=== PATIENT | male | born 1945 | race Caucasian/White ===

== ENCOUNTER → 2018-04-26 16:48 | Outpatient (CLI) | payer MEDICARE, OTHER, SELFPAY ==
--- NOTE | 2018-04-26 17:12 | RAD_ITS ---
STUDY: X-RAY - LUMBAR SPINE REASON FOR EXAM: Male, 73 years old. Lower back pain. TECHNIQUE: 3 view(s) of the lumbar spine were obtained. COMPARISON: None FINDINGS: Normal lumbar lordosis. There is no substantial scoliosis. There is a normal alignment of the vertebrae. Normal vertebral bodies. No acute fractures. No lytic or blastic lesions. 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 Moderate disc space height narrowing with degenerative vacuum phenomenon and mild sclerosis of the vertebral endplates at L2-L3, L3-L4 and L4-L5 disc space levels. Degenerative vacuum phenomenon and mild disc space height narrowing at the L5-S1 disc level. The soft tissue structures are unremarkable. RAD/Lumbar Spine 2 or 3 Views IMPRESSION: 1. 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 2. Pronounced L3-L4 disc space height narrowing with degenerative vacuum phenomenon and Modic type III degenerative vertebral marrow sclerosis underneath the vertebral endplates. 3. Moderate L2-L3 disc space height narrowing with degenerative vacuum phenomenon and minimal Modic type III degenerative vertebral marrow sclerosis underneath the vertebral endplates. 4. Pronounced L4-L5 disc space height narrowing with degenerative vacuum phenomenon and moderate L5-S1 disc space height narrowing with degenerative vacuum phenomenon. Electronically Signed: Ian Simons MD at 16:25 EDT , Service support ,
== END ==
PROVIDERS: Visit Provider Anesthesiology Pain Medicine
DX: M54.9 Dorsalgia, unspecified (principal)
CPT/HCPCS: 72100

== ENCOUNTER → 2018-05-11 09:45 | Outpatient (CLI) | payer MEDICARE, OTHER, SELFPAY ==
--- NOTE | 2018-05-11 10:45 | MRI_ITS ---
STUDY: MRI LUMBAR SPINE WITHOUT CONTRAST REASON FOR EXAM: Male, 73 years old. No back pain for 20 years. The patient had previous surgery 35 years ago. TECHNIQUE: Standardized fat and water weighted pulse sequences were obtained in the sagittal and axial planes. COMPARISON: Radiographs of the lumbar spine dated April 26, 2018. FINDINGS: T12-L1: Normal endplates. Normal disc height, signal and morphology. Normal bilateral facet joints. Normal central canal and bilateral lateral recesses. Normal bilateral intervertebral neural foramina. Normal lumbar lordosis. There is no substantial scoliosis. Normal conus medullaris that terminates at the T12-L1 level. L1-2: There is mild annular disk bulge and osteophyte complex. There is moderate degenerative arthropathy of the facet joints. Right-sided neuroforamen is mildly narrowed without MR evidence for nerve impingement. There is severe left-sided neural foraminal narrowing with potential impingement on the left L1 nerve root at the neural foramen. There is no significant central canal stenosis. L2-3: There is narrowing of the disc with vacuum disc phenomenon. There is a broad central disc protrusion. There is moderately severe degenerative arthropathy of the facet joints. There is moderate acquired canal stenosis. Neural foramina are narrowed, greater on the left than the right with potential impingement of the left L2 nerve root at the neural foramen. L3-4: There is narrowing of the disc. There is mild anterolisthesis at this level with uncovering of the disc. There is a broad central disc protrusion with annular disc bulge and osteophyte complex. There is severe degenerative arthropathy of the facet joints. There is severe acquired canal stenosis with probable impingement of the cauda equina. Neural foramina are moderately narrowed without definite nerve impingement at the neural foramina. L4-5: There is mild annular disk bulge and osteophyte complex. There is mild degenerative arthropathy of the facet joints. Bilateral neuroforamina are narrowed without MR evidence for nerve impingement. There is no significant central canal stenosis. L5-S1: There is narrowing of this disc with vacuum disc phenomenon. There is moderate annular disc bulge and osteophyte complex. There is moderate degenerative arthropathy of the facet joints. There is mild central acquired canal stenosis. Neuroforamina are moderately narrowed with questionable impingement of the left L5 nerve root at the lateral foramen. There may be Tarlov cysts arising from the L5 nerve roots at this level. Normal visualized sacral ala. There is mild paraspinal muscular atrophy. There appear to be multiple bilateral renal cysts. MRI/Spine Lumbar (Routine) IMPRESSION: Moderately severe multilevel degenerative disc disease and degenerative arthropathy of the lumbar spine with acquired canal stenosis, neural foraminal narrowing and potential nerve root impingement, as described. Electronically Signed: Elsy Angel MD at 12:01 EDT , Service support ,
== END ==
PROVIDERS: Visit Provider Anesthesiology Pain Medicine
DX: M54.9 Dorsalgia, unspecified (principal); M79.606 Pain in leg, unspecified
CPT/HCPCS: 72148

== ENCOUNTER → 2018-06-07 13:12 | Outpatient (CLI) | payer MEDICARE, OTHER, SELFPAY ==
[2018-06-07 14:03] LABS: Amphetamine Urine VISTA NEGATIVE (<1000 ng/mL); Barbiturate Urine VISTA NEGATIVE (< 200 ng/mL); Benzodiazepine Urine VISTA NEGATIVE (< 200 ng/mL); Cocaine Urine VISTA NEGATIVE (< 300 ng/mL); Ecstacy Urine VISTA NEGATIVE (< 500 ng/mL); Methadone Urine VISTA NEGATIVE (< 300 ng/mL); PCP Urine VISTA NEGATIVE (< 25 ng/mL); THC Urine VISTA NEGATIVE (< 50 ng/mL); Vista UDS pH Range 5
== END ==
PROVIDERS: Visit Provider Anesthesiology Pain Medicine
DX: F11.20 Opioid dependence, uncomplicated (principal)
CPT/HCPCS: 80307

== ENCOUNTER → 2018-07-10 12:59 | Outpatient (CLI) | payer MEDICARE, OTHER, SELFPAY ==
[2018-07-10 13:17] LABS: Absolute Neutrophil Count 6.6 X10^3/uL (2.0-7.7); Basophil# 0.02 X10^3/uL; Basophil% 0.2 % (0-1); Eosinophil# 0.18 X10^3/uL; Eosinophils% 2.2 % (0-5); Lymphocyte % 10.9 % (19-41); Mean Corp Hgb Conc 33.3 g/gl (32-36); Mean Platelet Vol. 9.6 fl (6.2-12.0); Monocyte# 0.61 X10^3/uL; Monocyte% 7.4 % (0-10); Neutrophil # 6.56 X10^3/uL (2.7-7.7); Neutrophil % 79.2 % (47-70); Platelet Count 283 K/mm3 (150-450); RBC Distribution Width CV 14.1 % (11.6-14.6); RBC Distribution Width SD 47.7 fl (35.1-43.9); Red Blood Count 3.75 M/mm3 (4.6-6.2); White Blood Count 8.3 K/mm3 (4.4-11.0)
[2018-07-10 13:21] LABS: Erythrocyte Sedimentation Rate 37 mm/hr (0-20); POSITIVE COUNT NO; POSITIVE DIFFERENTIAL NO; POSITIVE MORPHOLOGY NO
[2018-07-10 13:26] LABS: ALB/GLOB Ratio 0.5 RATIO (0.9-2.4); AST(SGOT) 19 U/L (15-37); Alanine Aminotransfer ALT/SGPT 25 U/L (16-61); Albumin, Serum 2.4 g/dL (3.2-5.0); Alkaline Phosphatase 75 U/L (45-117); Anion Gap 7 (5-15); BUN 16 mg/dL (7-18); BUN/Creat Ratio 12.4 RATIO (10-20); Calcium,Total 8.8 mg/dL (8.5-10.1); Chloride 100 mmol/L (98-107); Creatinine, Serum 1.29 mg/dL (0.70-1.30); EST Glomerular Filtration Rate 58 mL/min (>60); Est Glom Filt Rate - Afr Amer 70 mL/min (>60); Globulin 4.6 g/dL (2.2-4.2); Glucose 221 mg/dL (74-106); Lipase 230 U/L (73-393); Potassium 4.6 mmol/L (3.5-5.1); Sodium Level 134 mmol/L (136-145)
[2018-07-10 13:29] LABS: Mucous, Urine 0 SEEN /hpf (<or=2+)
[2018-07-10 13:31] LABS: Color, Urine Yellow (Yellow); Glucose, Dipstick 1000 mg/dl (Normal); Ketone-Dipstick Negative (Negative); Leukocyte Esterase-Dipstick 500 /ul (Negative); Nitrite-Dipstick Negative (Negative); Occult Blood-Urine 10 /ul (Negative); Protein-Dipstick 30 mg/dl (Negative); Specific Gravity, Urine 1.015 (1.002-1.030); Urine Clarity Cloudy (Clear); Urine Urobilinogen 1 mg/dl (Normal)
[2018-07-10 13:34] LABS: Urine Bilirubin Dipstick 6 mg/dL (Negative)
[2018-07-10 13:36] LABS: Bacteria 2+ /hpf (None Seen); Squamous Epithelial Cells - UA 0-5 SEEN /hpf (0-5); White Blood Cells 50-100 SEEN /hpf (0-5)
[2018-07-10 13:37] LABS: Red Blood Cells-Urine 0-5 SEEN /hpf (0-5)
[2018-07-10 13:38] LABS: BNP,B-Type NATRIURETIC PEPTIDE 272.6 pg/mL (0-100)
== END ==
PROVIDERS: Visit Provider Family Medicine
DX: R60.0 Localized edema (principal); R06.09 Other forms of dyspnea; R10.84 Generalized abdominal pain; R82.90 Unspecified abnormal findings in urine
CPT/HCPCS: 80053; 81001; 83690; 83880; 85025; 85652; 86140

== ENCOUNTER 2018-07-10 17:41 | Emergency (ER) | payer MEDICARE, OTHER, SELFPAY ==
[2018-07-10 17:45] VITALS: BP 126/69; PULSE 83; RESP 18; TEMP 37.4; O2SAT 96; BMI 41.3
--- NOTE | 2018-07-10 18:35 | CT_ITS ---
STUDY: CT ABDOMEN AND PELVIS WITHOUT CONTRAST REASON FOR EXAM: Male, 73 years old. Acute pain RADIATION DOSAGE (If Supplied By Facility): CTDIvol = ( 23.31 ) mGy, DLP = ( 1275.29 ) mGycm TECHNIQUE: Transaxial images were obtained from the dome of the diaphragm to the symphysis pubis without oral contrast, and without intravenous contrast. Sagittal and coronal images were reconstructed. Individualized dose optimization techniques were used for this CT. COMPARISON: None. FINDINGS: There are chronic interstitial fibrotic changes of the lung bases. Calcified coronary vessels noted. Normal liver. Normal gallbladder and extrahepatic biliary system. Normal spleen. Normal pancreas. Normal bilateral adrenal glands. No obstructive uropathy. There is induration around the periphery of the left kidney suggesting a possible nephritis. Without IV contrast this is difficult to accurately evaluate. Normal visualized stomach. Normal small intestine. There are multiple colonic diverticula consistent with diverticulosis. The appendix is visualized and appears normal. Appendix best seen on coronal recon images 50 through 57 There is diffuse atherosclerotic calcification of the abdominal aorta, without a demonstrated aneurysm. Normal inferior vena cava. Normal retroperitoneum. Normal urinary bladder. There are prostatic calcifications. Normal abdominal wall. There are diffuse degenerative changes of the visualized lumbar spine, and pelvis. CT/Abdomen/Pelvis without Cont IMPRESSION: Nonspecific induration around the periphery of the left kidney suggesting nephritis. This is difficult to accurately evaluate without IV contrast. Colonic diverticulosis Normal appendix visualized. Retained stool in the colon Degenerative bony changes Electronically Signed: Raleigh Lopes MD at 19:03 EDT , Service support ,
[2018-07-10 19:23] VITALS: PULSE 80; TEMP 36.7; O2SAT 99
[2018-07-10 19:55] VITALS: BP 133/70; PULSE 89; RESP 14; O2SAT 98
--- NOTE | 2018-07-10 20:07 | ED.DCSUM_ITS ---
- ER Visit Summary Date of Service: 07/10/18 Chief Complaint: Abnormal labs History of Present Illness: The patient is a 73 M he states he has not been feeling well for the past 3 weeks. He was seen by his PCP this morning. Labs, urinalysis, chest x-ray were obtained. Patient received a call this afternoon that his inflammatory markers were elevated and he needed to go to the emergency room for a CT scan. Patient reports minimal cough. He denies abdominal pain, but states the abdomen did hurt when the doctor pushed on earlier today. He reports discoloration to his urine. He reports subjective fever and chills over the past 3 weeks. Past history significant for diabetes and hypertension. Physical Examination: Blood pressure is 126/69, temperature 99.3, heart rate 83, respiratory rate 18, pulse ox 96% on room air. Patient sitting upright in bed no acute distress. He is nontoxic appearing. Heart is regular rate and rhythm. Lung sounds clear. Abdomen is soft with mild epigastric tenderness. No guarding or rebound. Active bowel sounds are noted throughout. Skin examination reveals no rash or lesions. Test Results: I reviewed his outpatient labs from earlier today. His white count is normal. His creatinine is 1.29. Glucose is 221. CRP is 123 and his ESR is 37. BNP is 272. Urinalysis showed 50-100 white cells with 2+ bacteria. Emergency Department Course and Treatment: I spoke with the patient's primary care physician, Dr. Nguyen. He requested a CT of the abdomen and pelvis because he had been tender on exam and the inflammatory markers were elevated. This was obtained and shows nonspecific induration around the periphery of the left kidney suggesting nephritis. He has evidence of diverticulosis without diverticulitis. Normal-appearing appendix is noted. Test results are discussed with patient and at bedside. He was placed on Bactrim times 10 days for pyelonephritis. Treatment Plan: [] Disposition: Discharge Impression: Pyelonephritis This note was generated with mmCHANNEL dictation software. It may contain incorrect words, spelling, and punctuation that were not noted in review of the chart prior to signing ED Disposition - Plan for ED Patient: Disposition: Home or Assisted Living Chief Complaint: Abn Labs Instructions: ED UTI Pyelonephritis Male Prescriptions: Smz/Tmp Ds [Bactrim Ds] 1 tablet PO BID #20 tablet Referrals: Paulo Nguyen MD [Primary Care Provider] - 1 Week
[2018-07-10] MEDS: Smz/Tmp Ds Tablet 1 TABLET PO (20:15)
[2018-07-10 20:16] VITALS: BP 151/89; PULSE 73; RESP 14; O2SAT 96
== END 2018-07-10 20:18 | disposition home or self-care (01) ==
PROVIDERS: Emergency Provider Emergency Medicine; Family Provider Family Medicine; PCP Family Medicine
DX: N12 Tubulo-interstitial nephritis, not specified as acute or chronic (principal); E11.9 Type 2 diabetes mellitus without complications; I10 Essential (primary) hypertension; K57.90 Diverticulosis of intestine, part unspecified, without perforation or abscess without bleeding; R05 Cough
CPT/HCPCS: 74176; 80053; 81001; 83690; 83880; 85025; 85652; 86140; 99284; A4216

== ENCOUNTER → 2018-08-01 21:20 | Outpatient (CLI) | payer MEDICARE, OTHER, SELFPAY | PROVIDERS: Family Provider Family Medicine; PCP Family Medicine; Visit Provider Family Medicine | DX: G47.10 Hypersomnia, unspecified (principal) | CPT/HCPCS: 95810 ==

== ENCOUNTER → 2018-11-29 10:13 | Outpatient (CLI) | payer MEDICARE, OTHER, SELFPAY ==
[2018-11-29 11:03] LABS: Amphetamine Urine VISTA NEGATIVE (<1000 ng/mL); Barbiturate Urine VISTA NEGATIVE (< 200 ng/mL); Benzodiazepine Urine VISTA NEGATIVE (< 200 ng/mL); Cocaine Urine VISTA NEGATIVE (< 300 ng/mL); Ecstacy Urine VISTA NEGATIVE (< 500 ng/mL); Methadone Urine VISTA NEGATIVE (< 300 ng/mL); PCP Urine VISTA NEGATIVE (< 25 ng/mL); THC Urine VISTA NEGATIVE (< 50 ng/mL); Vista UDS pH Range 5
== END ==
PROVIDERS: Family Provider Family Medicine; PCP Family Medicine; Referring Provider Anesthesiology Pain Medicine; Visit Provider Anesthesiology Pain Medicine
DX: F11.20 Opioid dependence, uncomplicated (principal)
CPT/HCPCS: 80307

== ENCOUNTER → 2019-02-20 13:42 | Outpatient (CLI) | payer MEDICARE, OTHER, SELFPAY ==
[2019-02-20 14:33] LABS: Amphetamine Urine VISTA NEGATIVE (<1000 ng/mL); Barbiturate Urine VISTA NEGATIVE (< 200 ng/mL); Benzodiazepine Urine VISTA NEGATIVE (< 200 ng/mL); Cocaine Urine VISTA NEGATIVE (< 300 ng/mL); Ecstacy Urine VISTA NEGATIVE (< 500 ng/mL); Methadone Urine VISTA NEGATIVE (< 300 ng/mL); PCP Urine VISTA NEGATIVE (< 25 ng/mL); THC Urine VISTA NEGATIVE (< 50 ng/mL); Vista UDS pH Range 5
== END ==
PROVIDERS: Family Provider Family Medicine; PCP Family Medicine; Referring Provider Anesthesiology Pain Medicine; Visit Provider Anesthesiology Pain Medicine
DX: F11.20 Opioid dependence, uncomplicated (principal)
CPT/HCPCS: 80307

== ENCOUNTER 2019-10-19 17:42 | Inpatient (IN) | payer MEDICARE, OTHER, SELFPAY ==
[2019-10-19 17:45] VITALS: BP 119/80; PULSE 100; RESP 20; TEMP 37.1; O2SAT 93; BMI 41.5
[2019-10-19 18:07] VITALS: O2SAT 96
--- NOTE | 2019-10-19 18:07 | CT_ITS ---
STUDY: CT BRAIN WITHOUT CONTRAST REASON FOR EXAM: Male, 74 years old. Headache RADIATION DOSAGE (If Supplied By Facility): CTDIvol = ( 44.99 ) mGy, DLP = ( 829.85 ) mGycm TECHNIQUE: Transaxial CT imaging of the brain was performed without administration of intravenous contrast material. Individualized dose optimization techniques were used for this CT. COMPARISON: No relevant priors. FINDINGS: Normal soft tissue structures. Normal calvarium. Normal size ventricles and extra-axial spaces for the patient''s age. Normal white matter tracts of the cerebral hemispheres. Normal basal ganglia and thalami. Normal brainstem. Normal cerebellum. There is no intracranial hemorrhage. There are no findings of an acute ischemic infarction. Right mastoid sinus retention cyst. CT/Brain/Head without Contrast IMPRESSION: No acute intracranial pathology of the brain. Electronically Signed: Rory Atwood DO at 19:25 EST Tel [phone], Service support ,
--- NOTE | 2019-10-19 18:07 | EKG12_ITS ---
Test Reason : SOB CP Blood Pressure : / mmHG Vent. Rate : 097 BPM Atrial Rate : 097 BPM P-R Int : 252 ms QRS Dur : 114 ms QT Int : 362 ms P-R-T Axes : 058 023 102 degrees QTc Int : 459 ms Sinus rhythm with 1st degree A-V block with frequent Premature ventricular complexes Low voltage QRS Possible Lateral infarct , age undetermined Abnormal ECG Confirmed by BENITA FRANCO, JOSE E ([id number]), writer editor MARISELA PIERRE ([id number]) on 10/22/2019 10:27:21 AM Referred By: Ofelia Manzano Confirmed By:JOSE E JOY MD
--- NOTE | 2019-10-19 18:10 | RAD_ITS ---
STUDY: X-RAY CHEST REASON FOR EXAM: Male, 74 years old. Chest pain, shortness of breath TECHNIQUE: Frontal view COMPARISON: None. FINDINGS: The lungs are expanded. Mild right basilar atelectasis. Cardiomegaly. Normal mediastinum and gio. Normal visualized pulmonary arteries. Normal visualized aortic arch and descending thoracic aorta. Normal visualized thoracic spine. Normal visualized ribs, clavicles, and shoulders. There is no demonstrated abnormality of the visualized soft tissue structures of the upper abdomen. RAD/Chest 1 View (Portable) IMPRESSION: Right basilar atelectasis. Electronically Signed: Rory Atwood DO at 18:37 EST Tel [phone], Service support ,
[2019-10-19 18:27] LABS: Absolute Lymphocyte Count 1.26 X10^3/uL (0.83-4.51); Absolute Neutrophil Count 5.1 X10^3/uL (2.0-7.7); Basophil# 0.03 X10^3/uL; Basophil% 0.4 % (0-1); Eosinophil# 0.14 X10^3/uL; Eosinophils% 1.9 % (0-5); Hematocrit 42.4 % (40-54); Hemoglobin 14.2 g/dL (13.0-16.5); Lymphocyte # 1.26 X10^3/ul (4.0); Lymphocyte % 17.4 % (19-41); Mean Corp Hgb Conc 33.5 g/dL (32-36); Mean Corpuscular Hgb 32.5 pg (27.0-32.0); Mean Platelet Vol. 10.6 fl (6.2-12.0); Monocyte# 0.67 X10^3/uL; Monocyte% 9.2 % (0-10); NRBC Flagged by Analyzer 0 % (0-5); Neutrophil # 5.14 X10^3/uL (2.7-7.7); Neutrophil % 70.8 % (47-70); Platelet Count 172 K/mm3 (150-450); RBC Distribution Width SD 50.3 fl (35.1-43.9); Red Blood Count 4.37 M/mm3 (4.6-6.2); White Blood Count 7.3 K/mm3 (4.4-11.0)
[2019-10-19 18:44] LABS: Anion Gap 7 (5-15); BUN 21 mg/dL (7-18); Calcium,Total 9.1 mg/dL (8.5-10.1); Chloride 106 mmol/L (98-107); Creatinine, Serum 1.62 mg/dL (0.70-1.30); EST Glomerular Filtration Rate 44 mL/min (>60); Est Glom Filt Rate - Afr Amer 53 mL/min (>60); Estimated Creatinine Clearance 37.53 ml/min; Glucose 232 mg/dL (74-106); Potassium 3.8 mmol/L (3.5-5.1); Sodium Level 141 mmol/L (136-145)
[2019-10-19] MEDS: HYDROmorphone 1 MG/ML Syringe IV (19:08)
[2019-10-19 19:13] LABS: BNP,B-Type NATRIURETIC PEPTIDE 198.4 pg/mL (0-100)
--- NOTE | 2019-10-19 19:26 | ED.VISSUMM ---
- ER Visit Summary Date of Service: 10/19/19 Chief Complaint: Chest pain History of Present Illness: The patient is a 74 M with chest pain that started around midnight last night. Associated with dizziness, cough, headache, and neck pain. History of diabetes, hypertension, hyperlipidemia. He says he had a stress test years ago which was unremarkable. Denies any history of cardiac catheterization. Denies any stenting or other coronary procedures. He does take aspirin daily. Denies any history of DVT or PE. Denies any history of aortic disease. He is a remote smoker. Lives with his . Physical Examination: Afebrile and vital signs unremarkable except for heart rate of 100 and respiratory rate of 20. 93% on room air. Patient appears uncomfortable but not in acute distress. Skin normal in color without diaphoresis or pallor. Heart regular rate and rhythm. Lungs clear. Abdomen soft and nontender. Extremities nontender with no significant edema. Symmetric. Cranial nerves grossly intact. Normal strength and sensation. HEENT exam unremarkable. Head and neck are atraumatic. Neck shows good range of motion. Test Results: EKG shows sinus rhythm at a rate of 97 with PVCs and first-degree AV block. No sign of ischemia or infarction pattern. No cerebral T waves. CBC normal. Glucose 232, BUN 21, creatinine 1.62. Urinalysis canceled. Troponin 5.42. Chest x-ray showed right basilar atelectasis. CT brain showed nothing acute. Emergency Department Course and Treatment: Patient had aspirin and nitro prior to arrival, given by EMS. His chest pain improved, but he continued to have a headache. Patient was treated with Dilaudid. He was placed on a monitor. EKG showed nothing acute. Laboratory studies showed a troponin of 5.42. Patient has chest pain as well as risk factors for ACS. His CT brain was unremarkable. He has a history of smoking, but is normotensive. No history of aortic disease. No focal neurologic findings. No cranial nerve abnormalities. No head trauma. No unilateral leg swelling, recent hospitalization or immobilization. No risk factors otherwise for DVT or PE. Nothing to suggest aortic or other vascular pathology. I suspect this is ACS. Patient was discussed with Dr. Guidry and we will treat with Plavix and heparin. PT, PTT pending. Will contact the hospitalist to admit for further care. Treatment Plan: As above Disposition: Admission Impression: 1. NSTEMI This note was generated with Bazari dictation software. It may contain incorrect words, spelling, and punctuation that were not noted in review of the chart prior to signing ED Disposition - Plan for ED Patient: Referrals: Paulo Nguyen MD [Primary Care Provider] -
--- NOTE | 2019-10-19 19:47 | PCM.HP.STD ---
Problem List (1) NSTEMI (non-ST elevated myocardial infarction) Status: Acute (2) Hypertension Status: Chronic Qualifiers: Hypertension type: essential hypertension Qualified Code(s): I10 - Essential (primary) hypertension (3) DM type 2 (diabetes mellitus, type 2) Status: Chronic Qualifiers: Diabetes mellitus adjunct faculty for medical terminology insulin use: with adjunct faculty for medical terminology use Diabetes mellitus complication status: with other specified complication Qualified Code(s): E11.69 - Type 2 diabetes mellitus with other specified complication; Z79.4 - residential (current) use of insulin (4) Hyperlipidemia Status: Acute (5) Obesity Status: Chronic Qualifiers: Obesity type: unspecified obesity type Obesity classification: adult class 2 (BMI 35 - 39.9) Body mass index: BMI 39.0-39.9 History of Present Illness Date of Admission: 10/19/19 Chief Complaint: Chest pain - 2 days The patient is a 74 year old M with past medical history of hypertension, hyperlipidemia, type II DM on insulin, morbid obesity who comes in with complaints of chest pain that started at night before admission while sitting and watching TV. Patient complains of severe substernal chest pain, pressure-like/tightness, associated with nausea but no diaphoresis or dizziness or palpitations. Chest pain was worse when he coughs. This was associated with severe headache. He denied any recent illness. Denied any history of heart disease. He is on daily aspirin. Denied any orthopnea or PND or leg swelling. Vitals in the ED showed temperature of 98.7F, heart rate 100, blood pressure 119/80, respiratory 20, SPO2 was 93% on room air. wbc 7.3, hB 14.2, pLT 172, inr 1.1, BMP was unremarkable except for BUN of 21, creatinine of 1.62, previous creatinine was 1.29, blood glucose was 232, BMP was 198.4, troponin was 5.420. EKG shows normal sinus rhythm, first degree AV block, PVCs, nonspecific ST segment depression. CT scan of the brain is negative for any acute intracranial pathology. Chest x-ray shows right basilar atelectasis Past Medical History Past Medical History (Chronic Problems): Chronic Problems Hypertension (Chronic) DM type 2 (diabetes mellitus, type 2) (Chronic) Obesity (Chronic) Allergies No Known Allergies Allergy (Verified 10/19/19 18:44) Home Medications: Ambulatory Orders Medication Instructions Recorded Insulin NPH Human Isophane 42 unit SQ QHS 07/10/18 [Novolin N] Insulin NPH Human Isophane 48 unit SQ BREAKFAST 07/10/18 [Novolin N] Amlodipine [Norvasc] 2.5 mg PO DAILY 10/19/19 Aspirin [Aspirin EC] 81 mg PO QODAY 10/19/19 Cholecalciferol (VIT D3) [Vitamin 1,000 unit PO DAILY 10/19/19 D] Docusate Sodium [Colace] 100 mg PO DAILY 10/19/19 Folic Acid 0.4 mg PO DAILY 10/19/19 Furosemide [Lasix] 40 mg PO BID 10/19/19 Glimepiride 4 mg PO BID 10/19/19 Ibuprofen [Advil Liqui-Gels] 200 mg PO TID 10/19/19 Krill/Leonardo-3/Dha/Epa/Lipids 1 cap PO DAILY 10/19/19 [Krill Oil 300 mg Softgel] Metformin HCl [Metformin ER 1,000 mg PO DAILY 10/19/19 Osmotic] Metoprolol Succinate 50 mg PO DAILY 10/19/19 Multivitamin with Minerals 1 ea PO DAILY 10/19/19 [Multiple Vitamin] Oxybutynin Chloride [Oxybutynin 10 mg PO DAILY 10/19/19 Chloride ER] Potassium Chloride 20 meq PO DAILY 10/19/19 Pravastatin [Pravachol] 80 mg PO DAILY 10/19/19 Tamsulosin HCl 0.4 mg PO QHS 10/19/19 Ubidecarenone [Co Q-10] 10 mg PO DAILY 10/19/19 Surgical History: total knee arthroplasty - right knee Psychiatric History: No pertinent psych hx Lives: Spouse/ Significant Other Smoking Status: Former smoker Tobacco Use: Non-smoker Alcohol: Occasional Drugs: None - *Family History Maternal History Items: Diabetes Paternal History Items: Diabetes, Heart Disease, Hypertension Review of Systems Constitutional: Denies: Anorexia, Chills, Fever, Malaise, Weight Change, Fatigue Eyes: Denies: Blurred vision, Cataracts, Conjunctivae Inflammation, Pain, Redness, Vision Change HEENT: Reports: Head Aches. Denies: Difficulty Hearing, Difficulty Swallowing, Dysphasia, Hearing Changes, Nasal bleeding, Sinus Congestion, Sinus Drainage, Sore Throat, Visual Changes Cardiovascular: Reports: Chest Pain, Chest Pressure, Chest Tightness. Denies: Claudication, Light Headedness, Orthopnea, Palpitations, Paroxysmal Noc. Dyspnea, Syncope Respiratory: Reports: Shortness of Breath. Denies: Cough, Hemoptysis, Shortness of breath at rest, Shortness of breath upon exertion, Sputum production Gastrointestinal: Denies: Abdominal Pain, Constipation, Hematemesis, Hematochezia, Nausea, Vomiting Genitourinary: Denies: Dysuria, Frequency, Incontinence, Nocturia Musculoskeletal: Denies: Joint Pain, Joint stiffness, Joint swelling, Joint Tenderness Skin: Denies: Pruritis, Rash, Wounds Neurological: Denies: Difficulty swallowing, Focal weakness, Numbness, Tingling Psychiatric: Denies: Anxiety, Depression, Homicidal Ideations, Suicidal Ideations Hematologic/ Lymphatic: Denies: Easy Bruising, Easy Bleeding VTE Information - Inpt Only VTE Present on Admission: No VTE Pharm Prophylaxis ordered?: Yes Patient Problems: Active and Suspected Problems NSTEMI (non-ST elevated myocardial infarction) (Acute) Hyperlipidemia (Acute) - Physical Exam Vitals/I&O's: Vital Signs Temp Pulse Resp BP Pulse Ox 98.7 F 100 20 H 119/80 96 10/19/19 17:45 10/19/19 17:45 10/19/19 17:45 10/19/19 17:45 10/19/19 18:07 Oxygen Delivery Method Room Air Weight: 124 kg Body Mass Index (BMI) 41.5 General: Alert, Oriented x3, Cooperative, - - in mild distres from pain, morbidly obese HEENT: Atraumatic, PERRLA, EOMI, Normocephalic Oral: Moist Mucosa Neck: Supple Lungs: Clear to auscultation, Normal air movement Cardiovascular: Regular rate, Regular Rhythm, Normal S1, Normal S2, No murmurs Abdomen: Bowel Sounds Present, Soft, Non Tender, Non-Distended, No Hepato-splenomegaly Extremities: No edema Skin: No rashes, No breakdown Musculoskeletal: No Tenderness to Palpation of Joints or Extremities Lymphatic: No Cervical, Supraclavicular, or Inguinal Adenopathy Neurological: Cranial nerves II-XII grossly intact, Neuro grossly intact Psych/Mental Status: Normal Affect, Appropriate Laboratory Results 10/19/19 18:00: WBC 7.3, RBC 4.37 L, Hgb 14.2, Hct 42.4, MCV 97.0 H, MCH 32.5 H, MCHC 33.5, RDW Std Deviation 50.3 H, RDW Coeff of Susan 14.0, Plt Count 172, MPV 10.6, Immature Gran % (Auto) 0.300, Neut % (Auto) 70.8 H, Lymph % (Auto) 17.4 L, Maries % (Auto) 9.2, Eos % (Auto) 1.9, Baso % (Auto) 0.4, Absolute Neuts (auto) 5.1, Absolute Lymphs (auto) 1.26, Nucleated RBC % 0 10/19/19 18:00: Sodium 141, Potassium 3.8, Chloride 106, Carbon Dioxide 28.0, Anion Gap 7, BUN 21 H, Creatinine 1.62 H, Estim Creat Clear Calc 37.53, Est GFR (MDRD) Af Amer 53 L, Est GFR (MDRD) Non-Af 44 L, BUN/Creatinine Ratio 13.0, Glucose 232 H, Calcium 9.1, Troponin I 5.420 H* 10/19/19 18:00: B-Natriuretic Peptide 198.4 H 10/19/19 18:00: PT Pending, INR Pending, APTT Pending Current Medications Heparin Sodium (Porcine) (Heparin Na) 0 unit IV UD PRN; Protocol Heparin Sodium/Dextrose () 25,000 units in 250 mls @ 10 mls/hr IV .Q25H ARI; Protocol Assessment/Plan All Active Problems NSTEMI (non-ST elevated myocardial infarction) (Acute) Hyperlipidemia (Acute) 74 year old M with past medical history of hypertension, hyperlipidemia, type II DM on insulin, morbid obesity who comes in with complaints of chest pain that started at night before admission while sitting and watching TV. His troponin is elevated, EKG shows nonspecific ST changes 1. Acute Non-STEMI, troponin is 5.[address] changes Given aspirin 324 mg p.o. by EMS, Loaded with Plavix 300 mg x 1 and started on heparin drip Cardiology consulted from the ED Continue on heparin drip, aspirin 81 mg p.o. daily, Plavix 75 mg p.o. daily, hold home metoprolol, continue on carvedilol 3.125 mg p.o. twice daily On pravastatin 80 mg daily Lipid profile, HbA1c, 2D echo 2. Acute headache, unclear etiology, likely tension headache, CT scan of the brain is negative for intracranial bleed Cannot give NSAIDs to patient on account of SUMAN and also use of heparin IV We will give Solu-Medrol 125 mg IV x1, Tylenol as needed 3. SUMAN on CKD stage III, creatinine is 1.62, up from 1.29 Likely prerenal from dehydration We will give gentle fluids, repeat BMP in a.m. 4. Hypertension, fairly controlled, continue on home amlodipine, and now carvedilol 5. Type II DM, on insulin, glimepiride and metformin Will hold home insulin regimen as well as glimepiride and Metformin whilst kept n.p.o. We will continue with Lantus 10 units x 1, high-dose insulin sliding scale 6. Hyperlipidemia, on statin, lipid profile in a.m. 7. DVT prophylaxis-moderate risk, patient is on heparin drip Code Visit Inpatient E&M: 00466 Init Hosp L3
[2019-10-19 20:03] VITALS: BMI 41.6
[2019-10-19 20:04] VITALS: BP 122/77; PULSE 94; RESP 14; O2SAT 94
[2019-10-19 20:10] VITALS: BMI 39.5
[2019-10-19 20:30] VITALS: BP 153/94; PULSE 105; RESP 18; TEMP 36.4; O2SAT 96
[2019-10-19 20:36] VITALS: PULSE 99
[2019-10-19 20:39] LABS: International Normalized Ratio 1.1; Partial Thromboplast Time 27.6 Seconds (24.1-36.2); Prothrombin Time (Protime)PT. 13.7 SECONDS (11.7-14.9)
--- NOTE | 2019-10-19 21:31 | ECHOCS_ITS ---
Reason For Study: CP Procedure This was a 2D Doppler, Color Flow transthoracic echocardiogram. The study was technically difficult. Contrast injection was performed. Exam performed portable in patient room. Left Ventricle Normal LV size. Moderate concentric left ventricular hypertrophy. Mild segmental systolic dysfunction (see wall motion). The estimated ejection fraction is 45 %. Anterio-Basal: Hypokinetic. Lateral-Basal: Hypokinetic. Posterior-Basal: Hypokinetic. Infero-Basal: Hypokinetic. Mid-Anterior : Hypokinetic. Mid-Lateral : Hypokinetic. Mid-Posterior: Hypokinetic. Mid-Inferior: Hypokinetic. Anterior [place] : Hypokinetic. Inferior [place] : Hypokinetic. Lateral [place] : Hypokinetic. Right Ventricle Normal RV size. Normal systolic function. Atria The left atrium is mildly enlarged. Normal right atrium. No doppler evidence for ASD. Mitral Valve There is moderate mitral annular calcification. Extension of the mitral annular calcification onto the mitral valve leaflets. Mild-Moderate (1-2+) mitral valve insufficiency. Tricuspid Valve Normal tricuspid valve. Mild tricuspid valve insufficiency. Right ventricular systolic pressure estimated to be 55 mmHg. Aortic Valve Trisinus/trileaflet aortic valve. Mild focal aortic valve thickening. Pulmonic Valve The pulmonic valve is not well visualized. Great Vessels Normal sized aortic root. Pericardium/Pleural Small pericardial effusion. There are no echocardiographic indications of cardiac tamponade. Medication Diluted definity 4ml given slow IV push to enhance endocardial definition. MMode/2D Measurements & Calculations LVIDd: 4.9 cm IVSd: 1.7 cm Ao root diam: 3.5 cm LVIDs: 3.6 cm LVPWd: 1.3 cm FS: 25.8 % LAV(MOD-bp): 78.6 ml LVAd ap4: 38.3 cm2 SV(MOD-sp4): 45.3 ml LAV(MOD-bp) Indexed: 34.5 ml/m2 EDV(MOD-sp4): 138.9 ml LAV(MOD-sp2): 83.3 ml EDV(sp4-el): 148.5 ml LAV(MOD-sp4): 71.9 ml LVAs ap4: 30.4 cm2 ESV(MOD-sp4): 93.6 ml ESV(sp4-el): 100.3 ml EF(MOD-sp4): 32.6 % EF(sp4-el): 32.5 % SV(sp4-el): 48.2 ml LA A4 area: 23.0 cm2 Time Measurements MV dec time: 0.18 sec Doppler Measurements & Calculations MV E max david: 124.4 cm/sec Lat Peak E' David: 4.1 cm/sec Med Peak E' David: 5.2 cm/sec MV A max david: 86.6 cm/sec E/E' lat: 30.6 E/E' med: 23.8 MV E/A: 1.4 MV V2 max: 149.5 cm/sec MV P1/2t max david: 151.8 cm/sec Ao V2 max: 97.5 cm/sec MV max P.9 mmHg MV P1/2t: 58.0 msec Ao max P.8 mmHg MV V2 mean: 83.1 cm/sec MV mean P.2 mmHg MV dec slope: 767.2 cm/sec2 MV V2 VTI: 28.6 cm MVA(P1/2t): 3.8 cm2 LV V1 max: 73.5 cm/sec MR max david: 494.4 cm/sec PA V2 max: 69.4 cm/sec LV V1 max P.2 mmHg MR max P.8 mmHg MR mean david: 381.2 cm/sec MR mean P.6 mmHg MR VTI: 169.5 cm TR max david: 361.3 cm/sec TR max P.2 mmHg Interpretation Summary The study was technically difficult. Contrast injection was performed. Mild segmental systolic dysfunction (see wall motion). The estimated ejection fraction is 45 %. Moderate concentric left ventricular hypertrophy. The left atrium is mildly enlarged. There is moderate mitral annular calcification. Extension of the mitral annular calcification onto the mitral valve leaflets. Mild-Moderate (1-2+) mitral valve insufficiency. Mild tricuspid valve insufficiency. Mild focal aortic valve thickening. Small pericardial effusion. There are no echocardiographic indications of cardiac tamponade. Right ventricular systolic pressure estimated to be 55 mmHg. Transmitral diastolic flow velocities suggest diastolic dysfunction (pseudonormal pattern). Ordering Physician: Natacha^Ofelia^^^ Referring Physician: Ofelia Manzano Performed By: Max Franklin RCS
[2019-10-19] MEDS: 0.9% Saline Lock 10 ML Syringe IV (21:42)
[2019-10-19] MEDS: 0.9% Normal Saline 1,000 ML 100 ML IV (21:42)
[2019-10-19 21:50] VITALS: BP 128/86; PULSE 88; RESP 18; TEMP 36.4; O2SAT 96
[2019-10-19 21:51] LABS: Bedside Glucose 183 mg/dL (70-110)
[2019-10-19 21:53] LABS: Hemoglobin A1c 8.5 % (4.2-6.3)
[2019-10-19] MEDS: MELATONIN 3 MG TABLET PO (21:55)
[2019-10-19] MEDS: Carvedilol 3.125 MG TABLET PO (21:55)
[2019-10-19] MEDS: Insulin Lispro 100 UNIT/ML INSULN.PEN SC (21:55)
[2019-10-19 22:23] LABS: Magnesium 2.1 mg/dL (1.6-2.6)
[2019-10-19] MEDS: Clopidogrel Bisulfate 300 MG Tablet PO (22:41)
[2019-10-19] MEDS: Acetaminophen 325 MG Tablet 650 MG PO (22:41)
[2019-10-19] MEDS: HEPARIN/D5w 25,000 UNITS 25,000 UNITS/250 ML IV.SOLN. 16 UNITS IV (22:50)
[2019-10-19] MEDS: Pravastatin 80 MG Tablet PO (22:56)
[2019-10-20] VITALS (30 sets, daily range): BP systolic 100–137; BP diastolic 53–86; PULSE 81–100; RESP 15–27; TEMP 36.4–36.6; O2SAT 90–100
[2019-10-20 03:28] LABS: Absolute Lymphocyte Count 1.24 X10^3/uL (0.83-4.51); Absolute Neutrophil Count 7.1 X10^3/uL (2.0-7.7); Basophil# 0.02 X10^3/uL; Basophil% 0.2 % (0-1); Eosinophil# 0.14 X10^3/uL; Eosinophils% 1.5 % (0-5); Hematocrit 41.9 % (40-54); Lymphocyte # 1.24 X10^3/ul (4.0); Lymphocyte % 13.2 % (19-41); Mean Corp Hgb Conc 33.4 g/dL (32-36); Mean Corpuscular Hgb 32.6 pg (27.0-32.0); Mean Corpuscular Volume 97.7 fL (80-94); Mean Platelet Vol. 10.4 fl (6.2-12.0); Monocyte% 8.5 % (0-10); NRBC Flagged by Analyzer 0 % (0-5); Neutrophil # 7.12 X10^3/uL (2.7-7.7); Neutrophil % 76.1 % (47-70); Platelet Count 163 K/mm3 (150-450); RBC Distribution Width SD 50.4 fl (35.1-43.9); Red Blood Count 4.29 M/mm3 (4.6-6.2); White Blood Count 9.4 K/mm3 (4.4-11.0)
[2019-10-20 03:43] LABS: AST(SGOT) 220 U/L (15-37); Alanine Aminotransfer ALT/SGPT 45 U/L (16-61); Albumin, Serum 3.3 g/dL (3.2-5.0); Alkaline Phosphatase 66 U/L (45-117); Anion Gap 6 (5-15); BUN 20 mg/dL (7-18); BUN/Creat Ratio 13.6 RATIO (10-20); Calcium,Total 8.9 mg/dL (8.5-10.1); Chloride 106 mmol/L (98-107); Cholesterol 161 mg/dL (200); Creatinine, Serum 1.47 mg/dL (0.70-1.30); EST Glomerular Filtration Rate 49 mL/min (>60); Est Glom Filt Rate - Afr Amer 60 mL/min (>60); Estimated Creatinine Clearance 41.36 ml/min; Globulin 3.4 g/dL (2.2-4.2); Glucose 232 mg/dL (74-106); High Density Lipoprotein 43 mg/dL; Potassium 3.9 mmol/L (3.5-5.1); Protein, Total 6.7 g/dL (6.4-8.2); Sodium Level 140 mmol/L (136-145); Triglycerides 71 mg/dL; Very Low Density Lipoprotein 14 mg/dL (5-40)
--- NOTE | 2019-10-20 05:55 | EKG12_ITS ---
Test Reason : AM EKG Blood Pressure : / mmHG Vent. Rate : 089 BPM Atrial Rate : 089 BPM P-R Int : 236 ms QRS Dur : 114 ms QT Int : 312 ms P-R-T Axes : 093 061 097 degrees QTc Int : 379 ms Sinus rhythm with sinus arrhythmia with 1st degree A-V block Low voltage QRS Borderline ECG When compared with ECG of 19-OCT-2019 17:53, MANUAL COMPARISON REQUIRED, DATA IS UNCONFIRMED Confirmed by HARPER FRANCO, ALMA ([id number]), editor trade journal MYLENE SPENCE ([id number]) on 10/23/2019 10:25:36 AM Referred By: Ofelia Manzano Confirmed By:ALMA SALEEM MD
[2019-10-20] MEDS: Aspirin E.C. 81 MG Tablet PO (06:40)
[2019-10-20] MEDS: Clopidogrel Bisulfate 75 MG Tablet PO (06:40)
[2019-10-20] MEDS: Carvedilol 3.125 MG TABLET PO ×2 (06:41→20:53)
[2019-10-20] MEDS: amLODIPine 2.5 MG Tablet PO (06:41)
[2019-10-20] MEDS: 0.9% Normal Saline 1,000 ML 100 ML IV (06:44)
--- NOTE | 2019-10-20 09:46 | EKG12_ITS ---
Test Reason : AM EKG Blood Pressure : / mmHG Vent. Rate : 091 BPM Atrial Rate : 091 BPM P-R Int : 244 ms QRS Dur : 112 ms QT Int : 324 ms P-R-T Axes : 090 068 030 degrees QTc Int : 398 ms Sinus rhythm with 1st degree A-V block Low voltage QRS Inferior-posterior infarct , age undetermined Abnormal ECG When compared with ECG of 20-OCT-2019 14:08, MANUAL COMPARISON REQUIRED, DATA IS UNCONFIRMED Confirmed by HARPER FRANCO, ALMA ([id number]), city editor MYLENE SPENCE ([id number]) on 10/23/2019 10:32:44 AM Referred By: Ofelia Manzano Confirmed By:ALMA SALEEM MD
[2019-10-20] MEDS: Acetaminophen 325 MG Tablet 650 MG PO (09:53)
[2019-10-20] MEDS: Nitroglycerin Infusion 250 ML 3 MG CONT INF (10:32)
--- NOTE | 2019-10-20 10:36 | PCM.CONS.C ---
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 The patient states for the last few days he has just not felt well. He notes that recently he has noted the onset of neck and left shoulder discomfort followed by concerns of this of breath, nausea, and headache. He states these symptoms were in process this past . He did not sleep well night into Tuesday. He did not feel well Tuesday and elected to present to the hospital for further evaluation. In the emergency department he was evaluated. He was found to have an abnormal troponin I level of 5.4. His ECG appeared to demonstrate sinus rhythm with low voltage QRS in the limb leads with an RSR prime pattern and nonspecific ST segment changes. He had been treated by the EMS with aspirin and nitroglycerin sublingual. In the emergency department he was reported as having no ongoing chest associated symptoms but a residual headache. He had a head CT scan/brain CT scan performed which demonstrated no acute findings. He was placed in the PCU for continued medical management with aspirin, antiplatelet therapy/Plavix, anticoagulant therapy/IV heparin, and beta-blockers. He states he did not sleep well through the night based upon concerns of his headache and his breathing. He states he has felt somewhat more short of breath and dyspneic when he is supine than when he is sitting. He knows this is been going on for some time and has been attributed to a diagnosis of obstructive sleep apnea for which she is undergoing additional studies. He states he has not yet received any type of CPAP device. He also notes he has had edema in the lower extremities. This day he began to have recurrence of his neck and shoulder and chest discomfort. His cardiac enzymes were followed and have continued to increase. His ECG was repeated with no significant change. He has been placed on additional medical management with IV nitroglycerin. [] Past Medical History Allergies/Adverse Reactions: Allergies No Known Allergies Allergy (Verified 10/19/19 18:44) Home Medications: Ambulatory Orders Medication Instructions Recorded Insulin NPH Human Isophane 42 unit SQ QHS 07/10/18 [Novolin N] Insulin NPH Human Isophane 48 unit SQ BREAKFAST 07/10/18 [Novolin N] Amlodipine [Norvasc] 2.5 mg PO DAILY 10/19/19 Aspirin [Aspirin EC] 81 mg PO QODAY 10/19/19 Cholecalciferol (VIT D3) [Vitamin 1,000 unit PO DAILY 10/19/19 D] Docusate Sodium [Colace] 100 mg PO DAILY 10/19/19 Folic Acid 0.4 mg PO DAILY 10/19/19 Furosemide [Lasix] 40 mg PO BID 10/19/19 Glimepiride 4 mg PO BID 10/19/19 Ibuprofen [Advil Liqui-Gels] 200 mg PO TID 10/19/19 Krill/[place]-3/Dha/Epa/Lipids 1 cap PO DAILY 10/19/19 [Krill Oil 300 mg Softgel] Metformin HCl [Metformin ER 1,000 mg PO DAILY 10/19/19 Osmotic] Metoprolol Succinate 50 mg PO DAILY 10/19/19 Multivitamin with Minerals 1 ea PO DAILY 10/19/19 [Multiple Vitamin] Oxybutynin Chloride [Oxybutynin 10 mg PO DAILY 10/19/19 Chloride ER] Potassium Chloride 20 meq PO DAILY 10/19/19 Pravastatin [Pravachol] 80 mg PO DAILY 10/19/19 Tamsulosin HCl 0.4 mg PO QHS 10/19/19 Ubidecarenone [Co Q-10] 10 mg PO DAILY 10/19/19 Past Medical History (Chronic Problems): Chronic Problems Hypertension (Chronic) DM type 2 (diabetes mellitus, type 2) (Chronic) Obesity (Chronic) Surgical History: total knee arthroplasty - right knee Psychiatric History: No pertinent psych hx - *Family History Maternal History Items: Diabetes Paternal History Items: Diabetes, Heart Disease, Hypertension Lives: Spouse/ Significant Other Smoking Status: Former smoker Tobacco Use: Non-smoker Alcohol: Occasional Drugs: None Review of Systems - Review of Systems General: Denies: Fever, Night Sweats, Fatigue Cardiovascular: Reports: Chest Discomfort, Chest Discomfort at Rest, Shortness of Breath, Shortness of Breath at Rest, Peripheral Edema. Denies: Orthopnea, PND, Palpitations, Lightheadedness, Dizziness, Near Syncope, Syncope Respiratory: Reports: Shortness of Breath. Denies: Cough, Sputum Production, Hemoptysis Gastrointestinal: Denies: Hematemesis, Hematochezia, Melena Genitourinary: Reports: Dysuria Skin: Denies: Rash Subjectve: This is a 74-year-old white male who appears to be resting in his chair at this time. Objective: Vital Signs Temp Pulse Resp BP Pulse Ox 97.5 F L 87 18 101/81 H 100 10/20/19 09:00 10/20/19 10:32 10/20/19 09:00 10/20/19 10:32 10/20/19 09:00 Oxygen Delivery Method Room Air Weight: 259 lb 4.218 oz Body Mass Index (BMI) 39.5 Intake and Output for Last 24 Hours 10/18/19 10/19/19 10/20/19 23:59 23:59 23:59 Intake Total 998.80 / 998.80 Balance 998.80 / 998.80 General: Awake, Alert, Oriented x 3, Obese HEENT: Atraumatic, Normocephalic, PERRL, EOMI, Sclera Non Icteric Oral: Moist Mucosa Neck: Supple, Good ROM, No JVD Lungs: - - Diminished inspiratory effort Cardiovascular: Regular Rhythm, Premature Ectopic Beats, Normal S1, Normal S2 Vascular: No Carotid Bruits Abdomen: Bowel Sounds Present, Soft, Non Tender, Obese Extremities: Mild RLE Edema, Mild LLE Edema Neurological: No Focal Motor or Sensory Deficit Psych/Mental Status: Appropriate 10/19/19 18:00: WBC 7.3, RBC 4.37 L, Hgb 14.2, Hct 42.4, MCV 97.0 H, MCH 32.5 H, MCHC 33.5, Plt Count 172, MPV 10.6, Immature Gran % (Auto) 0.300, Neut % (Auto) 70.8 H, Lymph % (Auto) 17.4 L, [place] % (Auto) 9.2, Eos % (Auto) 1.9, Baso % (Auto) 0.4, Absolute Neuts (auto) 5.1, Nucleated RBC % 0 10/19/19 18:00: Sodium 141, Potassium 3.8, Chloride 106, Carbon Dioxide 28.0, Anion Gap 7, BUN 21 H, Creatinine 1.62 H, Est GFR (MDRD) Af Amer 53 L, Est GFR (MDRD) Non-Af 44 L, BUN/Creatinine Ratio 13.0, Glucose 232 H, Calcium 9.1, Troponin I 5.420 H* 10/19/19 18:00: B-Natriuretic Peptide 198.4 H 10/19/19 18:00: PT 13.7, INR 1.1, APTT 27.6 10/19/19 21:29: Hemoglobin A1c 8.5 H 10/19/19 21:29: Troponin I 14.800 H* 10/19/19 21:29: Magnesium 2.1 10/20/19 00:09: Troponin I 22.300 H* 10/20/19 03:18: WBC 9.4, RBC 4.29 L, Hgb 14.0, Hct 41.9, MCV 97.7 H, MCH 32.6 H, MCHC 33.4, Plt Count 163, MPV 10.4, Immature Gran % (Auto) 0.500, Neut % (Auto) 76.1 H, Lymph % (Auto) 13.2 L, [place] % (Auto) 8.5, Eos % (Auto) 1.5, Baso % (Auto) 0.2, Absolute Neuts (auto) 7.1, Nucleated RBC % 0 10/20/19 03:18: Sodium 140, Potassium 3.9, Chloride 106, Carbon Dioxide 28.0, Anion Gap 6, BUN 20 H, Creatinine 1.47 H, Est GFR (MDRD) Af Amer 60, Est GFR (MDRD) Non-Af 49 L, BUN/Creatinine Ratio 13.6, Glucose 232 H, Calcium 8.9, Total Bilirubin 1.40 H, Triglycerides 71, Cholesterol 161, LDL Cholesterol 104, VLDL Cholesterol 14, HDL Cholesterol 43 10/20/19 03:18: Troponin I 20.600 H* 10/20/19 04:48: APTT 74.0 H 10/20/19 08:50: Troponin I 33.200 H* Rhythm: Sinus rhythm EKG: As noted above ECHO: The study was technically difficult Contrast injection was performed Mild segmental systolic dysfunction The estimated LVEF is 45% Moderate concentric LVH Mild left atrial enlargement Moderate mitral annular calcification with extension onto the mitral valve leaflets Mild to moderate MR Mild TR Mild focal aortic valve thickening Small pericardial effusion with no echocardiographic indications of cardiac tamponade Estimated RV systolic pressure 55 mmHg Decreased diastolic compliance CXR: Preliminary evaluation: No acute cardiopulmonary disease process: Please see official report Assessment/Plan 1. Non-ST segment elevation WA: Acute The patient presents with symptoms and abnormal troponin I levels compatible with an acute non-ST segment elevation [place]. He is being monitored and followed. He has been placed on medical therapy which now includes aspirin, antiplatelet therapy, nitrates, beta-blockers, and anticoagulants. He has undergone further evaluation with a transthoracic echocardiogram. The results are as noted. He should be considered for further evaluation with diagnostic cardiac catheterization. The procedure and risks have been discussed with the patient with his family members present. He was agreeable to this approach. 2. Hyperlipidemia He will continue risk factor modification medical therapy as deemed appropriate. 3. Hypertension His blood pressure will need to be followed and his medication adjusted as needed. 4. Diabetes mellitus He will continue under the care of internal medicine. 5. Obesity He has been counseled on the importance of dietary therapy and activity-as best as possible-in order to try and bring his weight under better control. Comment: The patient's case was discussed and reviewed with Dr. Cavazos. This note was generated using a voice recognition system and there may be incorrect words, spelling or punctuation that were not noted when reviewing the office note prior to saving.
[2019-10-20 11:06] LABS: Partial Thromboplast Time 91.3 Seconds (24.1-36.2)
--- NOTE | 2019-10-20 11:39 | CM.UR ---
Heart Cath review: This patient has traditional MCR so he can be transferred to any MCR facility, as needed. Melecio Gann RN, CCM.
--- NOTE | 2019-10-20 12:43 | PCM.PN.HOSP ---
Patient Problems: Active and Suspected Problems NSTEMI (non-ST elevated myocardial infarction) (Acute) Hyperlipidemia (Acute) Subjective: Patient seen and examined. He was admitted with a complaint of chest pain and found to have NSTEMI o/a of elevated troponin of ~ 5.42. Cardiology is on board and he is on heparin drip, aspirin, statin and carvedilol. Patient seen and examined this morning. He denied any chest pain, shortness of breath, nausea and vomiting, abdominal pain, diarrhea or vomiting. Review of systems is otherwise negative. Labs and vitals reviewed. Vitals/I&O's: Vital Signs Temp Pulse Resp BP Pulse Ox 97.5 F L 89 19 H 126/84 H 99 10/20/19 09:00 10/20/19 12:00 10/20/19 12:00 10/20/19 12:00 10/20/19 12:00 Oxygen Flow Rate (L/min) 2 Oxygen Delivery Method Nasal Cannula Weight: 259 lb 4.218 oz Body Mass Index (BMI) 39.5 Intake and Output for Last 24 Hours 10/18/19 10/19/19 10/20/19 23:59 23:59 23:59 Intake Total 1497.20 / 1497.20 Balance 1497.20 / 1497.20 General: Alert, Oriented x3, Cooperative, - - obese HEENT: Atraumatic, PERRLA, EOMI, Normocephalic Oral: Moist Mucosa Neck: Supple, No JVD, Negative Carotid Bruits Lungs: Clear to auscultation, Normal air movement, No rhonchi, No wheeze, No rales Cardiovascular: Regular rate, Regular Rhythm, Normal S1, Normal S2, No murmurs Abdomen: Bowel Sounds Present, Soft, Non Tender, Non-Distended, No Hepato-splenomegaly Extremities: No clubbing, No cyanosis, No edema, Capillary Refill Less than 3 Seconds Skin: No rashes, No breakdown Musculoskeletal: No Tenderness to Palpation of Joints or Extremities Lymphatic: No Cervical, Supraclavicular, or Inguinal Adenopathy Neurological: Cranial nerves II-XII grossly intact, Neuro grossly intact, Motor Exam 5/5 strength throughout Psych/Mental Status: Normal Affect, Appropriate, Alert and oriented to time, place, person, mood and affect Laboratory Results 10/19/19 18:00: WBC 7.3, RBC 4.37 L, Hgb 14.2, Hct 42.4, MCV 97.0 H, MCH 32.5 H, MCHC 33.5, RDW Std Deviation 50.3 H, RDW Coeff of [place] 14.0, Plt Count 172, MPV 10.6, Immature Gran % (Auto) 0.300, Neut % (Auto) 70.8 H, Lymph % (Auto) 17.4 L, [place] % (Auto) 9.2, Eos % (Auto) 1.9, Baso % (Auto) 0.4, Absolute Neuts (auto) 5.1, Absolute Lymphs (auto) 1.26, Nucleated RBC % 0 10/19/19 18:00: Sodium 141, Potassium 3.8, Chloride 106, Carbon Dioxide 28.0, Anion Gap 7, BUN 21 H, Creatinine 1.62 H, Estim Creat Clear Calc 37.53, Est GFR (MDRD) Af Amer 53 L, Est GFR (MDRD) Non-Af 44 L, BUN/Creatinine Ratio 13.0, Glucose 232 H, Calcium 9.1, Troponin I 5.420 H* 10/19/19 18:00: B-Natriuretic Peptide 198.4 H 10/19/19 18:00: PT 13.7, INR 1.1, APTT 27.6 10/19/19 21:29: Hemoglobin A1c 8.5 H 10/19/19 21:29: Troponin I 14.800 H* 10/19/19 21:29: Magnesium 2.1 10/19/19 21:40: POC Glucose 183 H 10/20/19 00:09: Troponin I 22.300 H* 10/20/19 03:18: WBC 9.4, RBC 4.29 L, Hgb 14.0, Hct 41.9, MCV 97.7 H, MCH 32.6 H, MCHC 33.4, RDW Std Deviation 50.4 H, RDW Coeff of [place] 14.0, Plt Count 163, MPV 10.4, Immature Gran % (Auto) 0.500, Neut % (Auto) 76.1 H, Lymph % (Auto) 13.2 L, [place] % (Auto) 8.5, Eos % (Auto) 1.5, Baso % (Auto) 0.2, Absolute Neuts (auto) 7.1, Absolute Lymphs (auto) 1.24, Nucleated RBC % 0 10/20/19 03:18: Sodium 140, Potassium 3.9, Chloride 106, Carbon Dioxide 28.0, Anion Gap 6, BUN 20 H, Creatinine 1.47 H, Estim Creat Clear Calc 41.36, Est GFR (MDRD) Af Amer 60, Est GFR (MDRD) Non-Af 49 L, BUN/Creatinine Ratio 13.6, Glucose 232 H, Calcium 8.9, Total Bilirubin 1.40 H, AST 220 H, ALT 45, Alkaline Phosphatase 66, Total Protein 6.7, Albumin 3.3, Globulin 3.4, Albumin/Globulin Ratio 1.0, Triglycerides 71, Cholesterol 161, LDL Cholesterol 104, VLDL Cholesterol 14, HDL Cholesterol 43 10/20/19 03:18: Troponin I 20.600 H* 10/20/19 04:48: APTT 74.0 H 10/20/19 08:50: Troponin I 33.200 H* 10/20/19 10:19: APTT 91.3 H* Diagnostic Data Brain CT 10/19/19 18:07 IMPRESSION: No acute intracranial pathology of the brain. Electronically Signed: Rory Atwood DO at 19:25 EST Tel [phone], Service support , Chest X-Ray 10/19/19 18:10 IMPRESSION: Right basilar atelectasis. Electronically Signed: Rory Atwood DO at 18:37 EST Tel [phone], Service support , Current Medications Acetaminophen (Tylenol) 650 mg PO Q6H PRN PRN PRN Reason: Pain Score 1-3/Temp > 100.7 F Last Admin: 10/20/19 09:53 Dose: 650 mg Documented by: Al Hydroxide/Mg Hydroxide (Mylanta Ii) 30 ml PO Q6H PRN PRN PRN Reason: Gastric Burning Albuterol Sulfate (Ventolin Aerosols) 2.5 mg INHALATION Q2H PRN PRN PRN Reason: SOB/Wheezing Amlodipine Besylate (Norvasc) 2.5 mg PO DAILY [facility] Last Admin: 01/11/20 06:41 Dose: 2.5 mg Documented by: Aspirin (Ecotrin) 81 mg PO DAILY [facility] Last Admin: 10/20/19 06:40 Dose: 81 mg Documented by: Carvedilol (Coreg) 3.125 mg PO BID [facility] Last Admin: 10/20/19 06:41 Dose: 3.125 mg Documented by: Clopidogrel Bisulfate (Plavix) 75 mg PO DAILY [facility] Last Admin: 10/20/19 06:40 Dose: 75 mg Documented by: Dextrose (D50w Syringe) 0 gm IV X1 PRN; Protocol PRN Reason: Hypoglycemia Folic Acid (Folic Acid) 0.5 mg PO DAILYCM [facility] Furosemide (Lasix) 40 mg PO BIDLX [facility] Glucagon () 1 mg IM .X1 PRN PRN Reason: Hypoglycemia Heparin Sodium (Porcine) (Heparin Na) 0 unit IV UD PRN; Protocol Heparin Sodium/Dextrose () 25,000 units in 250 mls @ 16 mls/hr IV .[id number] [facility]; Protocol Last Titration: 10/20/19 11:18 Dose: 0 units/hr, 0 mls/hr Documented by: Nitroglycerin/Dextrose () 250 mls @ 3 mls/hr CONT INF .[id number] [facility]; Protocol Last Titration: 10/20/19 12:00 Dose: 5 mcg/min, 3 mls/hr Documented by: Sodium Chloride () 1,000 mls @ 15 mls/hr IV .Q48H [facility] Insulin Human Lispro (Humalog Kwikpen (Bkc)) 0 unit SC ACHS [facility]; Protocol Last Admin: 10/20/19 09:26 Dose: Not Given Documented by: Magnesium Hydroxide (Milk Of Magnesia) 30 ml PO DAILY PRN PRN PRN Reason: Constipation Melatonin (Melatonin) 3 mg PO QHS PRN PRN PRN Reason: INSOMNIA Last Admin: 10/19/19 21:55 Dose: 3 mg Documented by: Morphine Sulfate () 2 mg IV Q3H PRN PRN PRN Reason: Pain Score 6-10/10 Nitroglycerin (Nitrostat) 0.4 mg SUBLINGUAL Q5M PRN PRN Reason: CARDIAC/CHEST PAIN Ondansetron HCl (Zofran) 4 mg IV Q8H PRN PRN PRN Reason: NAUSEA/VOMITING Pravastatin Sodium (Pravachol) 80 mg PO QHS [facility] Last Admin: 10/19/19 22:56 Dose: 80 mg Documented by: Psyllium Hydrophilic Mucilloid (Metamucil) 1 packet PO DAILY PRN PRN PRN Reason: Constipation Sodium Chloride () 10 - 40 ml IV UD PRN PRN Reason: SALINE FLUSH Last Admin: 10/19/19 21:42 Dose: 10 ml Documented by: Tamsulosin HCl (Flomax) 0.4 mg PO QHS [facility]KE Vital Signs/Narrative: Vital Signs Temp Pulse Resp BP Pulse Ox 10/20/19 12:00 89 19 H 126/84 H 99 10/20/19 11:45 87 15 116/81 H 99 10/20/19 11:30 81 15 100/83 H 99 10/20/19 11:15 88 20 H 113/59 L 99 10/20/19 11:00 87 21 H 115/75 99 10/20/19 10:55 86 22 H 117/74 98 10/20/19 10:50 84 19 H 114/79 99 10/20/19 10:45 85 16 106/76 100 10/20/19 10:40 82 15 108/74 100 10/20/19 10:35 81 16 110/69 97 10/20/19 10:32 87 101/81 H 10/20/19 09:00 97.5 F L 81 18 116/63 100 Medical Necessity - Tobacco Use Smoking Status: Former smoker Tobacco Use: Non-smoker Assessment/Plan All Active Problems NSTEMI (non-ST elevated myocardial infarction) (Acute) Hyperlipidemia (Acute) 1. Nonstemi troponins were 5.42 on admission; he was admitted with a complaint of chest pain EKG showed no acute ST changes Currently on aspirin 81 mg daily, Plavix and heparin drip as well as carvedilol and high intensity statin. troponin peaked at 33.2 and BNP was 198. Lipid panel was within normal limits LDL was 104. Neurology on board. For cardiac cath today. A1C is 8.5. 2D echo pending 2. SUMAN Baseline creatinine is 1.29. Creatinine on admission was 1.61 is down to 1.47 today. Hydrated very gently with IV fluids. Will monitor. 3. Acute headache: Resolved. 4. Hypertension 20 well controlled. Was 126/84 today. On amlodipine. Carvedilol started on account of non-STEMI. 5. Type 2 diabetes mellitus On insulin, glimepiride and metformin on hold. These are on hold right now. Insulin sliding scale. Accu-Cheks AC at bedtime. 6. Hyperlipidemia: On statin. Lipid profile showed LDL of 104 but was otherwise within normal limits. DVT prophylaxis: On heparin drip Code Visit Inpatient E&M: 73174 Subs Hosp L3
[2019-10-20 13:36] LABS: ACT Activated Clotting Time 230 sec (74-137)
[2019-10-20 13:36] LABS: ACT Activated Clotting Time 186 sec (74-137)
[2019-10-20 13:36] LABS: ACT Activated Clotting Time 114 sec (74-137)
--- NOTE | 2019-10-20 13:47 | CL.I_ITS ---
Patient Name: LUCIA NEGRO Study Date: 10/20/2019 Performing: Lam Shearer MD Ht: 68.11 inches 173 cm : 1945 Wt: 260.15 lbs 118 kg Age: 74 Gender: male BSA: 2.29 PROCEDURE(S) PERFORMED [id number] W OR WO PTCA, SINGLE CORONARY ARTERY CLINICAL PROFILE AND CO-MORBIDITIES Patient presents with NSTEMI for urgent cardiac cath Indications: New Onset Angina <= 2 months, Worsening Angina, Suspected CAD, LV Dysfunction, Other Heart Failure: NYHA Class: 1, Newly Diagnosed: Yes, Heart Failure Type: Systolic Stress/Imaging Stress/Image Study Performed: No Stress/Image Study Performed: No Angina Classification Anginal Classification w/in 2 Weeks: CCS IV CAD Presentations: Non-STEMI. Unstable angina. Non-STEMI. Symptom onset Date/Time: 10/19/2019 Time Not Available Other: New onset exertional angina over last several weeks. Comorbidities/Risk Factors: Hypertension Dyslipidemia Diabetes Mellitus: Diabetes Therapy: Insulin CONCLUSIONS Successful PTCA/GAIL mid LCX sequeing into large OM#1, utilizing an export catheter and double wire te kaya, placing a 3.0 x 38 Promus Synergy, post dilated in proximal 2/3 with a 4.0 x 12 NC balloon; 100%-->0%, no dissection. Unable to pass runthrough wire down LPL branch as it appears to be a BLUEPRINT ENGINEER with adequate R to L collate rals. RECOMMENDATIONS Highly recommend quitting all tobacco products Follow up with primary flame annealing machine setter Risk factor modification ASA Indefinitley Plavix for at least 12 months Routine post interventional care Refer for Outpatient Cardiac Rehab Manual sheath removal per protocol Follow up with Dr. Guidry Stress/MPI in 3 weeks to eval anterior wall/LAD territory. If abnl for ischeamia will return for sandra ctive PCI of LAD/DIAG bifurcation, requiring a long 55 cm sheath given aorto-iliac tortuosity. Successful Mynx Control closure of RFA. D/w Dr Guidry. DESCRIPTION OF PROCEDURE The patient arrived to the procedure lab. The risks and benefits of the procedure as well as a full d escription of our services here and current unavailability of surgical backup were fully explained to the patient and/or their significant other prior to the catheterization. The Timeout was completed, verifying the correct patient and procedure. The patient's procedural site was prepped and draped in the usual fashion. Local anesthetic was given subcutaneously to right groin region with Lidocaine 2% Using a modified Seldinger technique,arterial access was obtained via the right femoral artery, a 4Fr sheath was inserted Left Coronary Artery selective angiography was performed in multiple views using a 4 Fr. JL5 catheter. Right Coronary Artery selective angiography was then performed in multiple vie ws using a 4 Fr. 3DRC catheter. Left Ventriculography was performed in STAN[place]ORD projection using a 4 Fr. P igtail catheter. LV to AO pullback pressures were then recorded.The images were reviewed and options discussed. A decision was then made to proceed with an Intervention, IVUS or other adjunc t procedure. Arterial sheath was exchanged for a 6 Fr 55cm Sheath. ebu 3.75 Guide catheter was inserted and en gaged into the LCA. bmw Guide wire was advanced to the LAD. runthrough Guide wire was advanced to the om. Asbury AP inserted Pass # 1 Asbury AP Removed emerge 2.00 x 12 Balloon catheter was advanced acr oss lesion in the circumflex, mid. PTCA balloon inflated at 6 atms for 10 secs. Angiogram performed p ost balloon dilatation. runthrough Guide wire was advanced to the true Circumflex. emerge 2.00 x 12 B alloon catheter was advanced across lesion in the circumflex, mid. PTCA balloon inflated at 10 atms f or 10 secs. PTCA balloon inflated at 8 atms for 8 secs. PTCA balloon inflated at 8 atms for 10 secs. PTCA balloon inflated at 8 atms for 8 secs. Angiogram performed post balloon dilatation. synergy 3.00 x 38 Drug Eluting stent was advanced across the lesion in the circumflex, mid. Angiogram performed p ost stent deployment. nc emerge 4.00 x 12 Balloon catheter was inserted post stent. Angiogram performed post balloon dilatation. Contrast was injected through the sheath and the Right I liac and Femoral artery were assessed for possible closure device. The arterial sheath was exchanged to a standard sheath to introduce closure aid. The arterial sheath was pulled and a Mynx closure dev ice was deployed for hemostasis INTERVENTION INFORMATION LESION SITE: Circumflex (Mid) Lesion Complexity: High/C, lesion at bifurcation: Yes, thrombus present: Yes, lesion length: 38 mm, c ulprit lesion: Yes Pre Stenosis: 100 % Pre intervention PILI flow: 0 PROCEDURE: Drug Eluting Stent with pre and post dilatation, Thrombectomy Post Stenosis: 0 % Post intervention PILI flow: 3 Lesion Devices: Terumo .014 Runthrough Extra Floppy 180cm straight Medtronic 6 Fr EBU3.75 100cm Guide Catheter Maxx Sci EMERGE MR 2.00x12 BALLOON Medtronic 6 Fr. Asbury AP Aspiration Catheter Maxx Sci Synergy MR GAIL 3.00x38 Maxx Sci NC EMERGE MR 4.00x12 BALLOON COMPLICATIONS No Complications PROCEDURE MEDICATIONS Versed 1 mg IV Oxygen: 2 L/min via nasal cannula Heparin 6000 unit(s) IV 10/20/2019 12:43:01 Nitro drip infused from floor dc'd ^FreeText^ 10/20/2019 12:23:57 Nitro 200 mcg IC 10/20/2019 13:21:15 SUMMARY OF HEMODYNAMIC DATA Time AIR REST ECG 12:04:18 AO 93/63 (80) SA 12:22:29 LV 90/7, 11 12:29:36 LV 122/-6, 20 12:30:05 LV 118/4, 23 12:31:03 LV 117/0, 18 12:31:10 LVp 119/0, 21 12:31:15 AOp 108/62 (82) 12:31:20 Signed By Lam Shearer MD On 10/20/2019 13:47:01 Lam Shearer MD
--- NOTE | 2019-10-20 14:25 | CL.D_ITS ---
Patient Name: LUCIA NEGRO Study Date: 10/20/2019 Performing: Ever Guidry MD Ht: 68.11 inches 173 cm : 1945 Wt: 260.15 lbs 118 kg Age: 74 Gender: male BSA: 2.29 PROCEDURE(S) PERFORMED [id number]/COR/LV [id number] W OR WO PTCA, SINGLE CORONARY ARTERY CLINICAL PROFILE AND INDICATIONS Patient presents with NSTEMI for urgent cardiac cath Indications: New Onset Angina <= 2 months, Worsening Angina, Suspected CAD, LV Dysfunction, Other Heart Failure: NYHA Class: 1, Newly Diagnosed: Yes, Heart Failure Type: Systolic Stress/Imaging Stress/Image Study Performed: No Stress/Image Study Performed: No Angina Classification Anginal Classification w/in 2 Weeks: CCS IV CAD Presentations: Non-STEMI. Unstable angina. Non-STEMI. Symptom onset Date/Time: 10/19/2019 Time Not Available Other: New onset exertional angina over last several weeks. Comorbidities/Risk Factors: Hypertension Dyslipidemia Diabetes Mellitus: Diabetes Therapy: Insulin CONCLUSIONS Elevated Left Ventricular End Diastolic Pressure Segmented LV systolic dysfunction- Moderate LVEF: by LV gram 30 % [place] Multivessel CAD RECOMMENDATIONS Risk factor modification Medical therapy Referred for immediate PCI DESCRIPTION OF PROCEDURE The patient arrived to the procedure lab. The risks and benefits of the procedure as well as a full d escription of our services here and current unavailability of surgical backup were fully explained to the patient and/or their significant other prior to the catheterization. The Timeout was completed, verifying the correct patient and procedure. The patient's procedural site was prepped and draped in the usual fashion. Local anesthetic was given subcutaneously to right groin region with Lidocaine 2%. Using a modified Seldinger technique, arterial access was obtained via the right femoral artery, a 4 Fr sheath was inserted Left Coronary Artery selective angiography was performed in multiple views us ing a 4 Fr. JL5 catheter. Right Coronary Artery selective angiography was then performed in multiple views using a 4 Fr. 3DRC catheter. Left Ventriculography was performed in STAN[place]ORD projection using a 4 Fr . Pigtail catheter. LV to AO pullback pressures were then recorded.Contrast was injected through the sheath and the Right Iliac and Femoral artery were assessed for possible closure device.T he arterial sheath was exchanged to a standard sheath to introduce closure aid. The arterial sheath w as pulled and a Mynx closure device was deployed for hemostasis CORONARY ANGIOGRAPHY DOMINANCE: Right Dominant LEFT HEART ASSESSMENT Left Ventricular Ejection Fraction: by LV Gram 30 % Anterior Hypokinesis. Inferior Basal Hypokinesis - Severe. Inferior Mid Hypokinesis. Apical Hypokines is Elevated Left Ventricular End Diastolic Pressure LVEDP: 23 mmHg LEFT MAIN: Angiographically normal LEFT ANTERIOR DESCENDING ARTERY: PROX LAD: Mild calcification, eccentric: 25 % Stenosis MID LAD: pre DX2: hazy: 50 % Stenosis, Mild luminal irregularities DIAGONAL 1: Proximal - small caliber vesseld: diffuse: 85 % Stenosis DIAGONAL 2: Ostial - 50 % Stenosis CIRCUMFLEX ARTERY: PROX CIRC: is occluded RIGHT CORONARY ARTERY: PROX RCA: 25 - 50 % Stenosis MID RCA: Mild luminal irregularities DISTAL RCA: Mild luminal irregularities RT PDA: Proximal - Mild luminal irregularities COLLATERAL FLOW: Collateral flow from Right to Left AORTIC ROOT: Angiographically normal COMPLICATIONS No Complications PROCEDURE MEDICATIONS Versed 1 mg IV Oxygen: 2 L/min via nasal cannula Heparin 6000 unit(s) IV 10/20/2019 12:43:01 Nitro drip infused from floor dc'd ^FreeText^ 10/20/2019 12:23:57 Nitro 200 mcg IC 10/20/2019 13:21:15 SUMMARY OF HEMODYNAMIC DATA Time AIR REST ECG 12:04:18 AO 93/63 (80) SA 12:22:29 LV 90/7, 11 12:29:36 LV 122/-6, 20 12:30:05 LV 118/4, 23 12:31:03 LV 117/0, 18 12:31:10 LVp 119/0, 21 12:31:15 AOp 108/62 (82) 12:31:20 RM AIR REST 13:47:01 Signed By Ever Guidry MD On 10/20/2019 14:24:56 Ever Guidry MD
--- NOTE | 2019-10-20 14:35 | EKG12_ITS ---
Test Reason : POST PCI Blood Pressure : / mmHG Vent. Rate : 089 BPM Atrial Rate : 089 BPM P-R Int : 252 ms QRS Dur : 108 ms QT Int : 350 ms P-R-T Axes : 097 068 021 degrees QTc Int : 425 ms Sinus rhythm with 1st degree A-V block Inferior-posterior infarct , age undetermined Abnormal ECG When compared with ECG of 20-OCT-2019 08:58, MANUAL COMPARISON REQUIRED, DATA IS UNCONFIRMED Confirmed by HARPER FRANCO, ALMA ([id number]), art editor MYLENE SPENCE ([id number]) on 10/23/2019 10:32:58 AM Referred By: Ofelia Manzano Confirmed By:ALMA SALEEM MD
[2019-10-20] MEDS: fentaNYL 100 MCG/2 ML Ampul 50 MCG IV (15:21)
[2019-10-20] MEDS: 0.9% Normal Saline 1,000 ML 150 ML IV (15:22)
--- NOTE | 2019-10-20 15:45 | NURSING ---
Patient seen on camera out of bed. This nurse and several other nurses ran to room and instructed patient to get back into bed, he is on bedrest. Patient noncompliant, unwilling to get back into bed. This nurse told the patient he needed to get back into bed, his groin puncture site could bleed. Patient agreed then to sit down but resistant to lay back. Patients groin checked, site stable. No bleeding or hematoma. Patient continued to refuse to lay back in bed. This RN and several other RNs instructed the patient he must lay back and out his oxygen back on. Patient finally agreed. Assisted with urinal and ativan PO given to patient as he remained very anxious. notified.
[2019-10-20] MEDS: LORazepam 1 MG Tablet PO (15:48)
--- NOTE | 2019-10-20 16:22 | CM.UR ---
RN CM Assessment Introduced role of RN CM to patient. Patient is alert and able to participate in RN CM Assessment. Care providers, pharmacy, and demographics verified. No family at bedside. Patient is anxious. Currently on bedrest after his heart cath with weight on right groin. Complaining he feels too tied down. States he gets anxious when that happens. vitals on monitor are within acceptable limits. Presentation: Via ER for chest pain w/dizziness, cough, headache and neck pain Admit Dx: Acute NSTEMI Re-Admit: no Barriers/Issues: anxiety PCP: Wendy Preferred Pharmacy: [facility] Insurance: [facility] and [employer] supplement Rx Benefit: Yes currently in deductible so expensive now but usually able to afford medications. LNOK: , [place] LW/HPOA: States he is not sure. States he had something but even if it is advance directives they are for [place]. Denies additional information at this time. Living Arrangements: Lives in apartment, no steps in or to enter. Lives with . States he has to help her a little. ADL?s: Independent Transportation: Self DME: power w/c, cane, grab bars, shower chair, hand held shower. DME co: no preference. HHC: Can't remember what it was called, it was in [place]. SNF: None Goal: Home with no needs. DC PLAN: Home, No needs anticipated. Melecio Gann RN, [facility].
[2019-10-20] MEDS: Furosemide 40 MG Tablet PO (17:53)
[2019-10-20] MEDS: Folic Acid 1 MG Tablet 0.5 MG PO ×2 (17:53→20:54)
[2019-10-20] MEDS: Insulin Lispro 100 UNIT/ML INSULN.PEN SC ×2 (17:54→20:53)
[2019-10-20 17:56] LABS: Bedside Glucose 202 mg/dL (70-110)
[2019-10-20] MEDS: Tamsulosin HCl 0.4 MG Capsule PO (20:54)
[2019-10-20] MEDS: Pravastatin 80 MG Tablet PO (20:54)
[2019-10-20 21:01] LABS: Bedside Glucose 263 mg/dL (70-110)
[2019-10-21] VITALS (25 sets, daily range): BP systolic 99–142; BP diastolic 54–105; PULSE 24–102; RESP 15–97; TEMP 36.4–37.1; O2SAT 90–100
[2019-10-21 05:05] LABS: Hematocrit 37.8 % (40-54); Hemoglobin 12.7 g/dL (13.0-16.5); Mean Corp Hgb Conc 33.6 g/dL (32-36); Mean Corpuscular Hgb 32.7 pg (27.0-32.0); Mean Corpuscular Volume 97.4 fL (80-94); Mean Platelet Vol. 10.5 fl (6.2-12.0); Platelet Count 141 K/mm3 (150-450); RBC Distribution Width CV 14.6 % (11.6-14.6); RBC Distribution Width SD 51.8 fl (35.1-43.9); Red Blood Count 3.88 M/mm3 (4.6-6.2); White Blood Count 8.6 K/mm3 (4.4-11.0)
[2019-10-21 05:31] LABS: ALB/GLOB Ratio 0.9 RATIO (0.9-2.4); AST(SGOT) 392 U/L (15-37); Alanine Aminotransfer ALT/SGPT 71 U/L (16-61); Alkaline Phosphatase 59 U/L (45-117); Anion Gap 6 (5-15); BUN 20 mg/dL (7-18); BUN/Creat Ratio 14.1 RATIO (10-20); Calcium,Total 8.3 mg/dL (8.5-10.1); Chloride 107 mmol/L (98-107); Creatinine, Serum 1.42 mg/dL (0.70-1.30); EST Glomerular Filtration Rate 51 mL/min (>60); Est Glom Filt Rate - Afr Amer 62 mL/min (>60); Estimated Creatinine Clearance 42.82 ml/min; Globulin 3.3 g/dL (2.2-4.2); Glucose 225 mg/dL (74-106); Potassium 3.8 mmol/L (3.5-5.1); Protein, Total 6.3 g/dL (6.4-8.2); Sodium Level 140 mmol/L (136-145)
[2019-10-21] MEDS: Clopidogrel Bisulfate 75 MG Tablet PO (08:59)
[2019-10-21] MEDS: Furosemide 40 MG Tablet PO ×2 (08:59→17:37)
[2019-10-21] MEDS: Insulin Lispro 100 UNIT/ML INSULN.PEN SC ×4 (08:59→21:05)
[2019-10-21] MEDS: Carvedilol 3.125 MG TABLET PO (08:59)
[2019-10-21] MEDS: Aspirin E.C. 81 MG Tablet PO (09:00)
[2019-10-21] MEDS: amLODIPine 2.5 MG Tablet PO (09:00)
[2019-10-21 09:01] LABS: Bedside Glucose 232 mg/dL (70-110)
--- NOTE | 2019-10-21 10:00 | EKG12_ITS ---
Test Reason : AM Blood Pressure : / mmHG Vent. Rate : 078 BPM Atrial Rate : 078 BPM P-R Int : 246 ms QRS Dur : 114 ms QT Int : 322 ms P-R-T Axes : 077 090 063 degrees QTc Int : 367 ms Sinus rhythm with 1st degree A-V block Low voltage QRS Inferior-posterior infarct , age undetermined Abnormal ECG When compared with ECG of 21-OCT-2019 05:41, MANUAL COMPARISON REQUIRED, DATA IS UNCONFIRMED Confirmed by HARPER FRANCO, ALMA ([id number]), scientific editor MYLENE SPENCE ([id number]) on 10/23/2019 10:37:56 AM Referred By: Ofelia Manzano Confirmed By:ALMA SALEEM MD
--- NOTE | 2019-10-21 11:22 | PCM.PN.CARD ---
Subjectve: The patient states his neck and shoulder and chest discomfort have resolved since his cardiac catheterization/PCI procedure yesterday. He states he slept well last night. He does admit he cannot lie for any prolonged period of time based upon his back discomfort. He also states that he has a difficult time urinating if he is not sitting up and/or standing. Objective: Vital Signs Temp Pulse Resp BP Pulse Ox 98.2 F 102 H 23 H 135/64 H 97 10/21/19 09:00 10/21/19 09:00 10/21/19 09:00 10/21/19 09:00 10/21/19 10:07 Oxygen Flow Rate (L/min) 2 Oxygen Delivery Method Room Air Weight: 262 lb 5.601 oz Body Mass Index (BMI) 39.5 Intake and Output for Last 24 Hours 10/19/19 10/20/19 10/21/19 23:59 23:59 23:59 Intake Total 1505.10 / 1505.10 1000 / 1000 Output Total 500 / 500 Balance 1005.10 / 1005.10 1000 / 1000 General: Awake, Alert, Oriented x 3, Cooperative, No Acute Distress, Obese HEENT: Atraumatic, Normocephalic, PERRL, EOMI, Sclera Non Icteric Oral: Moist Mucosa Neck: Supple, Good ROM, No JVD Lungs: Clear to auscultation Cardiovascular: Regular Rhythm, Normal S1, Normal S2 Vascular: Normal Femoral Pulses Abdomen: Bowel Sounds Present, Soft, Non Tender Extremities: Mild RLE Edema, Mild LLE Edema Psych/Mental Status: Appropriate 10/21/19 05:00: WBC 8.6, RBC 3.88 L, Hgb 12.7 L, Hct 37.8 L, MCV 97.4 H, MCH 32.7 H, MCHC 33.6, Plt Count 141 L, MPV 10.5 10/21/19 05:00: Sodium 140, Potassium 3.8, Chloride 107, Carbon Dioxide 27.0, Anion Gap 6, BUN 20 H, Creatinine 1.42 H, Est GFR (MDRD) Af Amer 62, Est GFR (MDRD) Non-Af 51 L, BUN/Creatinine Ratio 14.1, Glucose 225 H, Calcium 8.3 L, Total Bilirubin 1.60 H Rhythm: Sinus rhythm EKG: Sinus rhythm; low voltage QRS limb leads; RSR prime pattern in V1; nonspecific ST/T wave abnormality Medical Necessity - Tobacco Use Smoking Status: Former smoker Tobacco Use: Non-smoker Assessment/Plan 1. Non-ST segment elevation UT: Acute The patient presents with symptoms and abnormal troponin I levels compatible with an acute non-ST segment elevation UT. He is now status post diagnostic cardiac catheterization and PCI/GAIL to the LCx/OM system. He does have cardiovascular disease/CAD involving his other coronary vessels. His overall LV systolic function appear to be decreased. He will need to continue combined medical management with adjustment over time. Hopefully he will be able to participate, once he is discharged, and outpatient cardiac rehabilitation therapy. 2. Ischemic mediated cardiomyopathy The patient does have diminished LV systolic function. He will need continued medical management. He will need future follow-up with echocardiographic studies to monitor his overall LV systolic function in response to his PCI procedure. 3. Hyperlipidemia He will continue risk factor modification medical therapy as deemed appropriate. 4. Hypertension His blood pressure will need to be followed and his medication adjusted as needed. 5. Diabetes mellitus He will continue under the care of internal medicine. 6. Obesity He has been counseled on the importance of dietary therapy and activity-as best as possible-in order to try and bring his weight under better control. This note was generated using a voice recognition system and there may be incorrect words, spelling or punctuation that were not noted when reviewing the office note prior to saving.
--- NOTE | 2019-10-21 14:24 | PN_ITS ---
Patient Problems: Active and Suspected Problems NSTEMI (non-ST elevated myocardial infarction) (Acute) Hyperlipidemia (Acute) Subjective: Seen and examined. He was admitted with non-STEMI and had cardiac cath yesterday Vitals/I&O's: Vital Signs Temp Pulse Resp BP Pulse Ox 98.4 F 96 24 H 124/105 H 100 10/21/19 12:00 10/21/19 13:00 10/21/19 13:00 10/21/19 13:00 10/21/19 13:00 Oxygen Flow Rate (L/min) 2 Oxygen Delivery Method Room Air Weight: 262 lb 5.601 oz Body Mass Index (BMI) 39.5 Intake and Output for Last 24 Hours 10/19/19 10/20/19 10/21/19 23:59 23:59 23:59 Intake Total 1505.10 / 1505.10 1000 / 1000 Output Total 500 / 500 Balance 1005.10 / 1005.10 1000 / 1000 General: Alert, Oriented x3, Cooperative, - - obese HEENT: Atraumatic, PERRLA, EOMI, Normocephalic Oral: Moist Mucosa Neck: Supple, No JVD, Negative Carotid Bruits Lungs: Clear to auscultation, Normal air movement, No rhonchi, No wheeze, No rales Cardiovascular: Regular rate, Regular Rhythm, Normal S1, Normal S2, No murmurs Abdomen: Bowel Sounds Present, Soft, Non Tender, Non-Distended, No Hepato- splenomegaly Extremities: No clubbing, No cyanosis, No edema, Capillary Refill Less than 3 Seconds Skin: No rashes, No breakdown Musculoskeletal: No Tenderness to Palpation of Joints or Extremities, cath site in right groin is clean and dry, no bleeding Lymphatic: No Cervical, Supraclavicular, or Inguinal Adenopathy Neurological: Cranial nerves II-XII grossly intact, Neuro grossly intact, Motor Exam 5/5 strength throughout Psych/Mental Status: Normal Affect, Appropriate, Alert and oriented to time, place, person, mood and affect Laboratory Results 10/20/19 17:51: POC Glucose 202 H 10/20/19 20:52: POC Glucose 263 H 10/21/19 05:00: WBC 8.6, RBC 3.88 L, Hgb 12.7 L, Hct 37.8 L, MCV 97.4 H, MCH 32.7 H, MCHC 33.6, RDW Std Deviation 51.8 H, RDW Coeff of Susan 14.6, Plt Count 141 L, MPV 10.5 10/21/19 05:00: Sodium 140, Potassium 3.8, Chloride 107, Carbon Dioxide 27.0, Anion Gap 6, BUN 20 H, Creatinine 1.42 H, Estim Creat Clear Calc 42.82, Est GFR (MDRD) Af Amer 62, Est GFR (MDRD) Non-Af 51 L, BUN/Creatinine Ratio 14.1, Glucose 225 H, Calcium 8.3 L, Total Bilirubin 1.60 H, AST 392 H, ALT 71 H, Alkaline Phosphatase 59, Total Protein 6.3 L, Albumin 3.0 L, Globulin 3.3, Albumin/Globulin Ratio 0.9 10/21/19 08:54: POC Glucose 232 H Current Medications Acetaminophen (Tylenol) 650 mg PO Q6H PRN PRN PRN Reason: Pain Score 1-3/Temp > 100.7 F Last Admin: 10/20/19 09:53 Dose: 650 mg Documented by: Acetaminophen (Tylenol) 650 mg PO Q6H PRN PRN PRN Reason: Pain Score 1-3/10 Al Hydroxide/Mg Hydroxide (Mylanta Ii) 30 ml PO Q6H PRN PRN PRN Reason: Gastric Burning Albuterol Sulfate (Ventolin Aerosols) 2.5 mg INHALATION Q2H PRN PRN PRN Reason: SOB/Wheezing Amlodipine Besylate (Norvasc) 2.5 mg PO DAILY [facility] Last Admin: 10/21/19 09:00 Dose: 2.5 mg Documented by: Aspirin (Ecotrin) 81 mg PO DAILY [facility] Last Admin: 10/21/19 09:00 Dose: 81 mg Documented by: Atropine Sulfate () 0.5 mg IV UD PRN PRN Reason: HR <50 bpm Carvedilol (Coreg) 6.25 mg PO BID [facility] Clopidogrel Bisulfate (Plavix) 75 mg PO DAILY [facility] Last Admin: 10/21/19 08:59 Dose: 75 mg Documented by: Dextrose (D50w Syringe) 0 gm IV X1 PRN; Protocol PRN Reason: Hypoglycemia [facility] Last Admin: 10/20/19 20:54 Dose: 0.5 mg Documented by: Furosemide (Lasix) 40 mg PO BIDLX [facility] Last Admin: 10/21/19 08:59 Dose: 40 mg Documented by: Glucagon () 1 mg IM .X1 PRN PRN Reason: Hypoglycemia Heparin Sodium (Beef Lung) (Heparin 500 Unit/5 Ml (100/Ml)) 500 unit IV UD PRN PRN Reason: HEPARIN FLUSH Heparin Sodium (Porcine) (Heparin Na) 0 unit IV UD PRN; Protocol Sodium Chloride () 1,000 mls @ 15 mls/hr IV .Q48H [facility] Last Admin: 10/21/19 02:09 Dose: Not Given Documented by: Insulin Human Lispro (Humalog Kwikpen (Bkc)) 0 unit SC [facility]; Protocol Last Admin: 10/21/19 12:25 Dose: 14 units Documented by: Labetalol HCl (Trandate) 5 mg IV X1 PRN PRN Reason: SBP > 160 when pulling sheath Lorazepam (Ativan) 1 mg PO Q6H PRN PRN PRN Reason: BACK SPASMS/ANXIETY Last Admin: 10/20/19 15:48 Dose: 1 mg Documented by: Magnesium Hydroxide (Milk Of Magnesia) 30 ml PO DAILY PRN PRN PRN Reason: Constipation Melatonin (Melatonin) 3 mg PO QHS PRN PRN PRN Reason: INSOMNIA Last Admin: 10/19/19 21:55 Dose: 3 mg Documented by: Metoclopramide HCl (Reglan) 5 mg IV Q6H PRN PRN PRN Reason: NAUSEA/VOMITING Morphine Sulfate () 2 mg IV Q3H PRN PRN PRN Reason: Pain Score 6-10/10 Morphine Sulfate () 2 - 4 mg IV Q4H PRN PRN PRN Reason: Pain Score 1-10/10 Nitroglycerin (Nitrostat) 0.4 mg SUBLINGUAL Q5M PRN PRN Reason: CARDIAC/CHEST PAIN Ondansetron HCl (Zofran) 4 mg IV Q8H PRN PRN PRN Reason: NAUSEA/VOMITING Pravastatin Sodium (Pravachol) 80 mg PO QHS [facility] Last Admin: 10/20/19 20:54 Dose: 80 mg Documented by: Psyllium Hydrophilic Mucilloid (Metamucil) 1 packet PO DAILY PRN PRN PRN Reason: Constipation Sodium Chloride () 10 - 40 ml IV UD PRN PRN Reason: SALINE FLUSH Last Admin: 10/19/19 21:42 Dose: 10 ml Documented by: Sodium Chloride () 500 ml IV BOLUS PRN PRN Reason: VASO-VAGAL PROTOCOL Tamsulosin HCl (Flomax) 0.4 mg PO QHS [facility] Last Admin: 10/20/19 20:54 Dose: 0.4 mg Documented by: STROKE Vital Signs/Narrative: Vital Signs Temp Pulse Resp BP BP Pulse Ox 10/21/19 13:00 96 24 H 124/105 H 100 10/21/19 12:00 98.4 F 96 24 H 142/71 H 100 10/21/19 11:30 100 10/21/19 11:00 99 21 H 117/99 H 95 Medical Necessity - Tobacco Use Smoking Status: Former smoker Tobacco Use: Non-smoker Assessment/Plan All Active Problems NSTEMI (non-ST elevated myocardial infarction) (Acute) Hyperlipidemia (Acute) 1. Nonstemi * troponins were 5.42 on admission; he was admitted with a complaint of chest pain * EKG showed no acute ST changes * had cardiac cath with successful PTCA/GAIL of mid left circumflex segueing into large obtuse marginal artery * on aspirni and plavix; to continue Plavix for 12 months and to be on aspirin indefinitely. Continue statin and carvedilol. * Cardiology on board. * 2D echo: EF of 45%, with moderate concentric LV hypertrophy and RVSP of 55mmHg as well as small pericardial effusion and mildly enlarged left atrium * 2. SUMAN * Baseline creatinine is 1.29. * Cr is 1.42 today. will monitor * 3. Acute headache: Resolved. 4. Hypertension * well controlled. Was 126/84 today. On amlodipine and carvedilol. * 5. Type 2 diabetes mellitus * On insulin, glimepiride and metformin at home. These are on hold right now. Insulin sliding scale. Accu-Cheks AC at bedtime. * 6. Hyperlipidemia: On statin. Lipid profile showed LDL of 104 but was otherwise within normal limits. DVT prophylaxis: SCDs Code Visit Inpatient E&M: 61872 Subs Hosp L2
[2019-10-21 16:31] LABS: Bedside Glucose 395 mg/dL (70-110)
[2019-10-21 17:35] LABS: Bedside Glucose 263 mg/dL (70-110)
[2019-10-21] MEDS: Pravastatin 80 MG Tablet PO (20:51)
[2019-10-21] MEDS: Tamsulosin HCl 0.4 MG Capsule PO (20:52)
[2019-10-21] MEDS: Carvedilol 6.25 MG Tablet PO (20:58)
[2019-10-21 21:16] LABS: Bedside Glucose 288 mg/dL (70-110)
[2019-10-21] MEDS: MELATONIN 3 MG TABLET PO (23:37)
[2019-10-21] MEDS: Acetaminophen 325 MG Tablet 650 MG PO (23:37)
[2019-10-22] VITALS (15 sets, daily range): BP systolic 98–129; BP diastolic 58–69; PULSE 63–98; RESP 15–18; TEMP 36.8–37.6; O2SAT 90–99
[2019-10-22 07:09] LABS: Anion Gap 8 (5-15); BUN 24 mg/dL (7-18); BUN/Creat Ratio 15.6 RATIO (10-20); Calcium,Total 8.5 mg/dL (8.5-10.1); Chloride 106 mmol/L (98-107); Creatinine, Serum 1.54 mg/dL (0.70-1.30); EST Glomerular Filtration Rate 47 mL/min (>60); Est Glom Filt Rate - Afr Amer 57 mL/min (>60); Estimated Creatinine Clearance 39.48 ml/min; Glucose 212 mg/dL (74-106); Potassium 3.5 mmol/L (3.5-5.1); Sodium Level 140 mmol/L (136-145)
[2019-10-22] MEDS: Insulin Lispro 100 UNIT/ML INSULN.PEN SC ×4 (08:11→22:35)
--- NOTE | 2019-10-22 08:14 | CRPHASE1_ITS ---
Patient Communication PHII Cardiac Rehab Discussed with Patient:: Yes Guide to Cardiac Rehab Given to Patient:: Yes Cardiac Rehab Facility Choice List Given to Patient:: Yes Choice Program [facility] PHII:: Communication Given to CR, Refer to [facility] Sweeper Brush Maker Machine:: Lam Shearer Phase II Cardiac Rehab:: Yes Sessions:: 36 sessions - 3 days/wk, 12 weeks Risk Factors/Lifestyle Smoking Status: Former smoker Hx Hypertension: Yes Hx Diabetes Mellitus Type 1: No Hx Diabetes Mellitus Type 2: Yes Hx Metabolic Disorders: Yes Hx Dyslipidemia: Yes Hx Obesity: Yes Weight:: 259 kg - BMI 39 Stress: Home/Family Risk Factor for Sedentary Lifestyle: Moderate Risk Laboratory Values: Cardiac Rehab Phase I Labs Hemoglobin A1c 8.5 % (4.2-6.3) H 10/19/19 21:29 Triglycerides 71 mg/dL (-199) 10/20/19 03:18 Cholesterol 161 mg/dL (200) 10/20/19 03:18 LDL Cholesterol 104 mg/dL (0-130) 10/20/19 03:18 HDL Cholesterol 43 mg/dL (40-) 10/20/19 03:18 Phase I Education Given On:: [place], Nutrition, Antiplatelet medication, Diabetes - Type II Issues Affecting Care:: None Knowledge of Condition:: Yes Learning Preferences: Verbal Medical/Surgical History CAD:: No Diabetes:: Yes Diabetes Type II:: Yes Hypertension:: Yes Dyslipidemia:: Yes Discharge/Home/Social Eval Discharge Disposition: Home Cardiac Rehabilitation Info Cardiac Rehabilitation Program Information: Cardiac Rehabilitation is important for patients like you who are recovering from a heart problem. Cardiac rehabilitation programs are recognized as integral to the cont inued care of the patient with coronary heart disease. The cardiac rehabilitation program is designed to optimize a patient's physical, psychological, and social functioning. Health home care giver work in cardiac rehabilitation programs and assist you with getting the treatments you need to get stronger and healthier - like exercise, healthy eating habits, and medications. Cardiac rehabilitation has been show to help people with heart problems live longer and have better life enjoyment than people who do not go to cardiac rehabilitation. Please contact the Cardiac Rehabilitation Program at [facility] at in two weeks if you have not heard from them.
--- NOTE | 2019-10-22 08:17 | CRPH1.INSTRU ---
General Education CAD and cardiac anatomy and function:: Patient communicates acknowledgment Explanation of diagnoses and procedures:: Patient communicates acknowledgment Sign/Symptoms of IL:: Patient communicates acknowledgment Antiplatelet therapy: Patient communicates acknowledgment Proper use of NTG-SL: Not instructed Emergency procedures and activation of EMS: Patient communicates acknowledgment Compliance of all prescribed medications: Patient communicates acknowledgment Smoking Recommendations Include:: Previous smoker; encourage continued cessation Nicotine/Smoking Response Code:: Patient communicates acknowledgment Dyslipidemia Patient Dyslipidemia Risk Factors Are:: Total Cholesterol, Triglycerides, HDL, LDL Recommendations Include:: Lipid profile provided, Reviewed NCEP/ATP guidelines, Therapeutic Lifestyle Change dietary guidelines Dyslipidemia Response Code:: Patient communicates acknowledgment Overweight/Obesity Patient Overweight/Obesity Risk Factors Are:: Obesity - > or = 30 Recommendations Include:: Weight loss of 5-10%, Reduced calorie diet, Exercise 5-7 times/week Overweight/Obesity:: Patient communicates acknowledgment Hypertension Recommendations Include:: BP <130/80 if diabetic, DASH dietary guidelines, Decrease/maintain normal body weight, Moderation of ETOH Hypertension:: Patient communicates acknowledgment Diabetes Patient Diabetes Risk Factors Are:: Elevated blood sugars Recommendations Include:: Maintain fasting blood sugars 70-110 md/dL, Maintain HgbA1c of 6% or less, Monitor blood sugar as prescribed, Diabetic dietary guidelines, Decrease/maintain body weight Diabetes:: Patient communicates acknowledgment Metabolic Syndrome Patient Metabolic Syndrome Risk Factors Are [3 of 5]:: Fasting blood sugar > 100 mg/dL, Waist circumference > 35 [female] or 40 [male], Hypertension Recommendations Include:: Reinforce compliance to risk factor modifications, Patient is diabetic, Encouraged follow-up with Primary Care Physician Metabolic Syndrome Response Code:: Patient communicates acknowledgment Sedentary Patient Sedentary Risk Factors Are:: Lack of regular exercise Recommendations Include:: Aerobic exercise 5-7 times/week for 20-30 minutes continuously, Benefits of regular exercise, Discussed home walking program, Monitored Outpatient Cardiac Rehab Sedentary Response Code:: Patient communicates acknowledgment Stress Recommendations Include:: Identification of stressors, and assessment of coping skills, Stress management techniques Stress Response Code:: Patient communicates acknowledgment
[2019-10-22 08:25] LABS: Bedside Glucose 200 mg/dL (70-110)
[2019-10-22] MEDS: Folic Acid 1 MG Tablet 0.5 MG PO (09:18)
[2019-10-22] MEDS: Furosemide 40 MG Tablet PO ×2 (09:19→17:43)
[2019-10-22] MEDS: Carvedilol 6.25 MG Tablet PO ×2 (09:19→22:36)
[2019-10-22] MEDS: Clopidogrel Bisulfate 75 MG Tablet PO (09:19)
[2019-10-22] MEDS: Aspirin E.C. 81 MG Tablet PO (09:19)
--- NOTE | 2019-10-22 09:52 | PCM.PN.CARD ---
Subjectve: The patient denies ongoing neck/shoulder/chest discomfort. He does not describe any acute shortness of breath/dyspnea. He states he did not sleep well last night but not because he was having ongoing acute cardiopulmonary symptoms. He states there are nights that he just does not sleep well-sometimes related to his chronic back discomfort. Objective: Vital Signs Temp Pulse Resp BP Pulse Ox 98.3 F 92 16 115/60 96 10/22/19 09:15 10/22/19 09:15 10/22/19 09:15 10/22/19 09:15 10/22/19 09:15 Oxygen Flow Rate (L/min) 2 Oxygen Delivery Method Room Air Weight: 570 lb 15.956 oz Body Mass Index (BMI) 39.5 Intake and Output for Last 24 Hours 10/20/19 10/21/19 10/22/19 23:59 23:59 23:59 Intake Total 1505.10 / 1505.10 1474 / 1474 50 / 50 Output Total 500 / 500 Balance 1005.10 / 1005.10 1474 / 1474 50 / 50 General: Awake, Alert, Oriented x 3, Cooperative, No Acute Distress, Obese HEENT: Atraumatic, Normocephalic, PERRL, EOMI, Sclera Non Icteric Oral: Moist Mucosa Neck: Supple, Good ROM, No JVD Lungs: Clear to auscultation Cardiovascular: Regular Rhythm, Premature Ectopic Beats, Normal S1, Normal S2 Abdomen: Bowel Sounds Present, Soft, Non Tender Extremities: Mild RLE Edema, Mild LLE Edema Psych/Mental Status: Appropriate 10/22/19 06:09: Sodium 140, Potassium 3.5, Chloride 106, Carbon Dioxide 26.0, Anion Gap 8, BUN 24 H, Creatinine 1.54 H, Est GFR (MDRD) Af Amer 57 L, Est GFR (MDRD) Non-Af 47 L, BUN/Creatinine Ratio 15.6, Glucose 212 H, Calcium 8.5 Rhythm: Sinus rhythm; PVCs EKG: Sinus rhythm; low voltage QRS limb leads; RSR prime pattern in V1-possible inferior posterior AR of indeterminate age Medical Necessity - Tobacco Use Smoking Status: Former smoker Tobacco Use: Non-smoker Assessment/Plan 1. Non-ST segment elevation AR: Acute The patient presents with symptoms and abnormal troponin I levels compatible with an acute non-ST segment elevation AR. He is now status post diagnostic cardiac catheterization and PCI/GAIL to the LCx/OM system. He does have cardiovascular disease/CAD involving his other coronary vessels. His overall LV systolic function appear to be decreased. He will need to continue combined medical management with adjustment over time. He has now been evaluated by cardiac rehabilitation. 2. Ischemic mediated cardiomyopathy The patient does have diminished LV systolic function. He will need continued medical management. He will need future follow-up with echocardiographic studies to monitor his overall LV systolic function in response to his PCI procedure. 3. Hyperlipidemia He will continue risk factor modification medical therapy as deemed appropriate. 4. Hypertension His blood pressure will need to be followed and his medication adjusted as needed. 5. Diabetes mellitus He will continue under the care of internal medicine. 6. Obesity He has been counseled on the importance of dietary therapy and activity-as best as possible-in order to try and bring his weight under better control. Overall, he will continue medical therapy. He will be asked to be up and ambulating. Hopefully if he remains symptomatically and hemodynamically stable he will be able to be released home for continued future outpatient cardiovascular follow-up and outpatient cardiac rehabilitation-which he states he would be willing to dissipate in as long as it is covered by his insurance. This note was generated using a voice recognition system and there may be incorrect words, spelling or punctuation that were not noted when reviewing the office note prior to saving.
--- NOTE | 2019-10-22 10:00 | EKG12_ITS ---
Test Reason : CP Blood Pressure : / mmHG Vent. Rate : 077 BPM Atrial Rate : 077 BPM P-R Int : 232 ms QRS Dur : 112 ms QT Int : 410 ms P-R-T Axes : 050 033 059 degrees QTc Int : 463 ms Sinus rhythm with sinus arrhythmia with 1st degree A-V block with occasional Premature ventricular co mplexes Low voltage QRS Nonspecific ST abnormality Abnormal ECG When compared with ECG of 20-OCT-2019 05:48, MANUAL COMPARISON REQUIRED, DATA IS UNCONFIRMED Confirmed by HARPER FRANCO, ALMA ([id number]), editorial manager MYLENE SPENCE ([id number]) on 10/23/2019 10:41:22 AM Referred By: Ofelia Manzano Confirmed By:ALMA SALEEM MD
[2019-10-22 11:26] LABS: Bedside Glucose 397 mg/dL (70-110)
--- NOTE | 2019-10-22 14:06 | PN_ITS ---
Patient Problems: Active and Suspected Problems (Last Updated 10/22/19 @ 08:50 by Felicita Arriaga) NSTEMI (non-ST elevated myocardial infarction) (Acute) Reason for Visit: Follow-up acute non-STEMI Subjective: Patient is a 74-year-old gentleman admitted with chest pain found to have acute non-STEMI underwent left heart catheterization with PTCA/GAIL to mid circumflex lesion Patient seen complains of feeling weak with exertion Objective: GENERAL: cooperative HEENT: Atraumatic; EYES; Anicteric, Normal Conjunctiva NECK; supple, normal thyroid, RESPIRATORY: Diminished to auscultation CARDIOVASCULAR: Regular S1 S2, GI: soft, normoactive bowel sounds, : No Renal angle tenderness; EXTREMITIES: No edema, no clubbing, MUSCULOSKELETAL: no muscle waisting NEURO: Awake; no lateralizing signs. SKIN: No Rash PSYCH; Flat affect Vitals/I&O's: Vital Signs Temp Pulse Resp BP Pulse Ox 98.3 F 84 16 115/60 96 10/22/19 09:15 10/22/19 10:50 10/22/19 09:15 10/22/19 09:15 10/22/19 13:23 Oxygen Flow Rate (L/min) 2 Oxygen Delivery Method Room Air Weight: 259 kg Body Mass Index (BMI) 39.5 Intake and Output for Last 24 Hours 10/20/19 10/21/19 10/22/19 23:59 23:59 23:59 Intake Total 1505.10 / 1505.10 1474 / 1474 290 / 290 Output Total 500 / 500 Balance 1005.10 / 1005.10 1474 / 1474 290 / 290 Laboratory Results 10/21/19 12:22: POC Glucose 395 H 10/21/19 17:26: POC Glucose 263 H 10/21/19 21:01: POC Glucose 288 H 10/22/19 06:09: Sodium 140, Potassium 3.5, Chloride 106, Carbon Dioxide 26.0, Anion Gap 8, BUN 24 H, Creatinine 1.54 H, Estim Creat Clear Calc 39.48, Est GFR (MDRD) Af Amer 57 L, Est GFR (MDRD) Non-Af 47 L, BUN/Creatinine Ratio 15.6, Glucose 212 H, Calcium 8.5 10/22/19 08:09: POC Glucose 200 H 10/22/19 11:17: POC Glucose 397 H Current Medications Acetaminophen (Tylenol) 650 mg PO Q6H PRN PRN PRN Reason: Pain Score 1-3/Temp > 100.7 F Last Admin: 10/21/19 23:37 Dose: 650 mg Documented by: Acetaminophen (Tylenol) 650 mg PO Q6H PRN PRN PRN Reason: Pain Score 1-3/10 Al Hydroxide/Mg Hydroxide (Mylanta Ii) 30 ml PO Q6H PRN PRN PRN Reason: Gastric Burning Albuterol Sulfate (Ventolin Aerosols) 2.5 mg INHALATION Q2H PRN PRN PRN Reason: SOB/Wheezing Aspirin (Ecotrin) 81 mg PO DAILY [facility] Last Admin: 10/22/19 09:19 Dose: 81 mg Documented by: Atropine Sulfate () 0.5 mg IV UD PRN PRN Reason: HR <50 bpm Carvedilol (Coreg) 6.25 mg PO BID [facility] Last Admin: 10/22/19 09:19 Dose: 6.25 mg Documented by: Clopidogrel Bisulfate (Plavix) 75 mg PO DAILY [facility] Last Admin: 10/22/19 09:19 Dose: 75 mg Documented by: Dextrose (D50w Syringe) 0 gm IV X1 PRN; Protocol PRN Reason: Hypoglycemia Folic Acid (Folic Acid) 0.5 mg PO DAILYCM [facility] Last Admin: 10/22/19 09:18 Dose: 0.5 mg Documented by: Furosemide (Lasix) 40 mg PO BIDLX [facility] Last Admin: 10/22/19 09:19 Dose: 40 mg Documented by: Glucagon () 1 mg IM .X1 PRN PRN Reason: Hypoglycemia Heparin Sodium (Beef Lung) (Heparin 500 Unit/5 Ml (100/Ml)) 500 unit IV UD PRN PRN Reason: HEPARIN FLUSH Heparin Sodium (Porcine) (Heparin Na) 0 unit IV UD PRN; Protocol Sodium Chloride () 1,000 mls @ 15 mls/hr IV .Q48H [facility] Last Admin: 10/21/19 02:09 Dose: Not Given Documented by: Insulin Human Lispro (Humalog Kwikpen (Bkc)) 0 unit SC ACHS [facility]; Protocol Last Admin: 10/22/19 11:19 Dose: 14 units Documented by: Labetalol HCl (Trandate) 5 mg IV X1 PRN PRN Reason: SBP > 160 when pulling sheath Lorazepam (Ativan) 1 mg PO Q6H PRN PRN PRN Reason: BACK SPASMS/ANXIETY Last Admin: 10/20/19 15:48 Dose: 1 mg Documented by: Magnesium Hydroxide (Milk Of Magnesia) 30 ml PO DAILY PRN PRN PRN Reason: Constipation Melatonin (Melatonin) 3 mg PO QHS PRN PRN PRN Reason: INSOMNIA Last Admin: 10/21/19 23:37 Dose: 3 mg Documented by: Metoclopramide HCl (Reglan) 5 mg IV Q6H PRN PRN PRN Reason: NAUSEA/VOMITING Morphine Sulfate () 2 mg IV Q3H PRN PRN PRN Reason: Pain Score 6-10/10 Morphine Sulfate () 2 - 4 mg IV Q4H PRN PRN PRN Reason: Pain Score 1-10/10 Nitroglycerin (Nitrostat) 0.4 mg SUBLINGUAL Q5M PRN PRN Reason: CARDIAC/CHEST PAIN Ondansetron HCl (Zofran) 4 mg IV Q8H PRN PRN PRN Reason: NAUSEA/VOMITING Pravastatin Sodium (Pravachol) 80 mg PO QHS [facility] Last Admin: 10/21/19 20:51 Dose: 80 mg Documented by: Psyllium Hydrophilic Mucilloid (Metamucil) 1 packet PO DAILY PRN PRN PRN Reason: Constipation Sodium Chloride () 10 - 40 ml IV UD PRN PRN Reason: SALINE FLUSH Last Admin: 10/19/19 21:42 Dose: 10 ml Documented by: Sodium Chloride () 500 ml IV BOLUS PRN PRN Reason: VASO-VAGAL PROTOCOL Tamsulosin [facility] ([facility]omax) [facility] Last Admin: 10/21/19 20:52 Dose: 0.4 mg Documented by: STROKE Vital Signs/Narrative: Vital Signs Pulse Pulse Ox 10/22/19 13:23 96 10/22/19 10:50 84 Medical Necessity - Tobacco Use Smoking Status: Former smoker Tobacco Use: Non-smoker Assessment/Plan All Active Problems (Last Updated 10/22/19 @ 08:50 by Felicita Arriaga) NSTEMI (non-ST elevated myocardial infarction) (Acute) Patient is a 74-year-old gentleman admitted with chest pain found to have acute non-STEMI underwent left heart catheterization with PTCA/GAIL to mid circumflex lesion 1. Acute non-STEMI ?Patient underwent left heart catheterization on 10/20/2019 with PTCA/GAIL to mid circumflex lesion. Echo demonstrated EF of 45% with RVSP of 55 mmHg 2. Acute kidney injury Baseline creatinine 129 ?Creatinine as of 10/22/2019 was 1.54 started on IV fluids with subsequent monitoring of electrolyte 3. Hypertension ~ blood pressure controlled, home medications continued with dose adjustment as needed 4. Diabetes mellitus type II ~ patient's oral hypoglycemics held. Placed on Accu-Cheks a.c. and at bedtime and covered with sliding scale insulin 5. Dyslipidemia ~patient is on statin therapy, continued at home dose, 6. Physical deconditioning Requested for PT OT and social contact worker to assist with discharge planning 7. DVT prophylaxis ?Lovenox dose adjusted for kidney function Code Visit Inpatient E&M: 50995 Subs Hosp L2
[2019-10-22] MEDS: 0.9% Saline Lock 10 ML Syringe IV (14:49)
[2019-10-22] MEDS: 0.9% Normal Saline 1,000 ML 75 ML IV (14:50)
[2019-10-22 16:45] LABS: Bedside Glucose 278 mg/dL (70-110)
[2019-10-22] MEDS: MELATONIN 3 MG TABLET PO (22:34)
[2019-10-22] MEDS: Acetaminophen 325 MG Tablet 650 MG PO (22:35)
[2019-10-22] MEDS: Tamsulosin HCl 0.4 MG Capsule PO (22:37)
[2019-10-22] MEDS: Pravastatin 80 MG Tablet PO (22:38)
[2019-10-22 22:45] LABS: Bedside Glucose 292 mg/dL (70-110)
[2019-10-23] VITALS (7 sets, daily range): BP systolic 105–113; BP diastolic 54–69; PULSE 77–86; RESP 14–20; TEMP 36.7–36.9; O2SAT 93–99
[2019-10-23] MEDS: 0.9% Normal Saline 1,000 ML 75 ML IV (02:04)
[2019-10-23 06:36] LABS: Bedside Glucose 248 mg/dL (70-110)
[2019-10-23 07:37] LABS: Anion Gap 6 (5-15); BUN 24 mg/dL (7-18); BUN/Creat Ratio 15.6 RATIO (10-20); Calcium,Total 8.4 mg/dL (8.5-10.1); Chloride 106 mmol/L (98-107); Creatinine, Serum 1.54 mg/dL (0.70-1.30); EST Glomerular Filtration Rate 47 mL/min (>60); Est Glom Filt Rate - Afr Amer 57 mL/min (>60); Estimated Creatinine Clearance 39.48 ml/min; Glucose 238 mg/dL (74-106); Potassium 3.4 mmol/L (3.5-5.1); Sodium Level 139 mmol/L (136-145)
[2019-10-23] MEDS: Folic Acid 1 MG Tablet 0.5 MG PO (07:50)
[2019-10-23] MEDS: Insulin Lispro 100 UNIT/ML INSULN.PEN SC (07:51)
[2019-10-23] MEDS: Clopidogrel Bisulfate 75 MG Tablet PO (09:33)
[2019-10-23] MEDS: Carvedilol 6.25 MG Tablet PO (09:33)
[2019-10-23] MEDS: Aspirin E.C. 81 MG Tablet PO (09:33)
[2019-10-23] MEDS: Furosemide 40 MG Tablet PO (09:33)
--- NOTE | 2019-10-23 10:00 | EKG12_ITS ---
Test Reason : AM EKG Blood Pressure : / mmHG Vent. Rate : 082 BPM Atrial Rate : 082 BPM P-R Int : 258 ms QRS Dur : 120 ms QT Int : 394 ms P-R-T Axes : 081 087 041 degrees QTc Int : 460 ms Sinus rhythm with 1st degree A-V block with occasional Premature ventricular complexes Otherwise normal ECG When compared with ECG of 22-OCT-2019 05:47, MANUAL COMPARISON REQUIRED, DATA IS UNCONFIRMED Confirmed by KEN FRANCO, PATI ([id number]), video effects editor MYLENE SPENCE ([id number]) on 10/26/2019 10:10:55 AM Referred By: Ofelia Manzano Confirmed By:KAILASH ROGERS MD
--- NOTE | 2019-10-23 10:08 | DCINST_ITS ---
- Discharge Diagnoses Current Active Problems: Current Active and Chronic Problems (Last Updated 10/22/19 @ 19:18 by Ro Monroe) Atherosclerotic heart disease of [place] coronary artery without angina pectoris (Chronic) Presence of stent in coronary artery (Chronic 10/20/19) Successful PTCA/GAIL mid LCX sequeing into large OM#1, utilizing an export catheter and double wire technique, placing a 3.0 x 38 Promus Synergy, post dilated in proximal 2/3 with a 4.0 x 12 NC balloon; 100%-->0%, no dissection. Unable to pass run through wire down LPL branch as it appears to be a ADMINISTRATIVE OFFICE CLERK with adequate R to L collaterals. per cath 10/20/19 Arteriosclerotic cardiovascular disease (Chronic) Left Ventricular Ejection Fraction: by LV Gram 30%; Anterior Hypokinesis. Inferior Basal Hypokinesis - Severe. Inferior Mid Hypokinesis. Apical Hypokinesis. Elevated Left Ventricular End Diastolic Pressure LVEDP: 23 mmHg. LEFT MAIN: Angiographically normal. LEFT ANTERIOR DESCENDING ARTERY: PROX LAD: Mild calcification, eccentric: 25 % Stenosis; MID LAD: pre DX2: hazy: 50 % Stenosis, Mild luminal irregularities; DIAGONAL 1: Proximal - small caliber vesseld: diffuse: 85 % Stenosis DIAGONAL 2: Ostial - 50 % Stenosis; CIRCUMFLEX ARTERY: PROX CIRC: is occluded. RIGHT CORONARY ARTERY: PROX RCA: 25 - 50 % Stenosis; MID RCA: Mild luminal irregularities DISTAL RCA: Mild luminal irregularities; RT PDA: Proximal - Mild luminal irregularities; COLLATERAL FLOW: Collateral flow from Right to Left Per LHC per PFM 10/20/2019 NSTEMI (non-ST elevated myocardial infarction) (Acute) Hypertension (Chronic) DM type 2 (diabetes mellitus, type 2) (Chronic) Hyperlipidemia (Chronic) Obesity (Chronic) You will use the following diet at home:: Calorie/Carbohydrate Controlled (specify 1200, 1400, etc) - 1800, Cardiac Your food should be the consistency of: Regular Discharge Activity: Return to Normal Activity Allergies/Adverse Reactions: Allergies No Known Allergies Allergy (Verified 10/19/19 18:44) Medications to take at Discharge Aspirin [Aspirin EC] 81 mg PO QODAY 10/19/19 Cholecalciferol (VIT D3) [Vitamin D3] 1,000 unit PO DAILY 10/19/19 Docusate Sodium [Colace] 100 mg PO DAILY 10/19/19 Folic Acid 0.4 mg PO DAILY 10/19/19 Furosemide [Lasix] 40 mg PO BID 10/19/19 Krill/[place]-3/Dha/Epa/Lipids [Krill Oil 300 mg Softgel] 1 cap PO DAILY 10/19/19 Metformin HCl [Metformin ER Osmotic] 1,000 mg PO DAILY 10/19/19 Multivitamin with Minerals [Multiple Vitamin] 1 ea PO DAILY 10/19/19 Oxybutynin Chloride [Oxybutynin Chloride ER] 10 mg PO DAILY 10/19/19 Potassium Chloride 20 meq PO DAILY 10/19/19 Pravastatin [Pravachol] 80 mg PO DAILY 10/19/19 Tamsulosin HCl 0.4 mg PO QHS 10/19/19 Ubidecarenone [Co Q-10] 10 mg PO DAILY 10/19/19 Carvedilol [Coreg (Beta Ramandeep)] 6.25 mg PO BID #180 tab 10/23/19 Clopidogrel Bisulfate [Plavix] 75 mg PO DAILY #90 tab 10/23/19 Insulin NPH Human Isophane [Novolin N] 20 unit SQ BREAKFAST #0 10/23/19 Insulin NPH Human Isophane [Novolin N] 20 unit SQ QHS #0 10/23/19 The following prescriptions were given: Carvedilol [Coreg (Beta Ramandeep)] 6.25 mg PO BID #180 tab Transmission Status: Pending to [id number] Clopidogrel Bisulfate [Plavix] 75 mg PO DAILY #90 tab Transmission Status: Pending to [id number] Primary Care Physician: Paulo Nguyen MD [Primary Care Provider] - Please follow up with your Primary Care Physician in: in 5-7 days Test Results: Test results from this visit will be discussed in further detail at your follow- up appointment, if applicable. Please Follow Up With: Ever Guidry MD Proposed Discharge Date: 10/23/19
--- NOTE | 2019-10-23 10:10 | DS.PCM_ITS ---
Discharge Date and Diagnosis - Problem List Patient Problems: Active and Suspected Problems (Last Updated 10/22/19 @ 19:18 by Ro Monroe) NSTEMI (non-ST elevated myocardial infarction) (Acute) Date of Admission: 10/19/19 Date of Discharge: 10/23/19 - Primary Discharge Diagnosis Active and Suspected Problems (Last Updated 10/22/19 @ 19:18 by Ro Monroe) NSTEMI (non-ST elevated myocardial infarction) (Acute) - Secondary Discharge Diagnosis Chronic Problems (Last Updated 10/22/19 @ 19:18 by Ro Monroe) Atherosclerotic heart disease of [place] coronary artery without angina pectoris (Chronic) Presence of stent in coronary artery (Chronic 10/20/19) Successful PTCA/GAIL mid LCX sequeing into large OM#1, utilizing an export catheter and double wire technique, placing a 3.0 x 38 Promus Synergy, post dilated in proximal 2/3 with a 4.0 x 12 NC balloon; 100%-->0%, no dissection. 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 per cath 10/20/19 Arteriosclerotic cardiovascular disease (Chronic) Left Ventricular Ejection Fraction: by LV Gram 30%; Anterior Hypokinesis. Inferior Basal Hypokinesis - Severe. Inferior Mid Hypokinesis. Apical Hypokinesis. Elevated Left Ventricular End Diastolic Pressure LVEDP: 23 mmHg. LEFT MAIN: Angiographically normal. LEFT ANTERIOR DESCENDING ARTERY: PROX LAD: Mild calcification, eccentric: 25 % Stenosis; MID LAD: pre DX2: hazy: 50 % Stenosis, Mild luminal irregularities; DIAGONAL 1: Proximal - small caliber vesseld: diffuse: 85 % Stenosis DIAGONAL 2: Ostial - 50 % Stenosis; CIRCUMFLEX ARTERY: PROX CIRC: is occluded. RIGHT CORONARY ARTERY: PROX RCA: 25 - 50 % Stenosis; MID RCA: Mild luminal irregularities DISTAL RCA: Mild luminal irregularities; RT PDA: Proximal - Mild luminal irregularities; COLLATERAL FLOW: Collateral flow from Right to Left Per LHC per PFM 10/20/2019 Hypertension (Chronic) DM type 2 (diabetes mellitus, type 2) (Chronic) Hyperlipidemia (Chronic) Obesity (Chronic) Hospital Course and Treatment Imaging Results: Clinical Impression(s) from Imaging Studies Brain CT 10/19/19 18:07 IMPRESSION: No acute intracranial pathology of the brain. Electronically Signed: Rory Atwood DO at 19:25 EST Tel [phone], Service support , Chest X-Ray 10/19/19 18:10 IMPRESSION: Right basilar atelectasis. Electronically Signed: Rory Atwood DO at 18:37 EST Tel [phone], Service support , Summary of Care Provided: Patient is a 74-year-old gentleman admitted with chest pain found to have acute non-STEMI underwent left heart catheterization with PTCA/GAIL to mid circumflex lesion 1. Acute non-STEMI ?Patient underwent left heart catheterization on 10/20/2019 with PTCA/GAIL to mid circumflex lesion. Echo demonstrated EF of 45% with RVSP of 55 mmHg. Patient w as discharged home on beta-blockers, aspirin, statin therapy and Plavix. Was not discharged on JUAN inhibitor due to worsening kidney function. 2. Acute kidney injury Baseline creatinine 129 ?Creatinine as of 10/22/2019 was 1.54 started on IV fluids with subsequent monitoring of electrolyte 3. Hypertension ~ blood pressure controlled, home medications continued with dose adjustment as needed 4. Diabetes mellitus type II ~ patient's oral hypoglycemics held. Placed on Accu-Cheks a.c. and at bedtime and covered with sliding scale insulin 5. Dyslipidemia ~patient is on statin therapy, continued at home dose, 6. Physical deconditioning Requested for PT OT and health care social worker to assist with discharge planning 7. DVT prophylaxis ?Lovenox dose adjusted for kidney function Patient Problems: Active and Suspected Problems (Last Updated 10/22/19 @ 19:18 by Ro Monroe) NSTEMI (non-ST elevated myocardial infarction) (Acute) Objective: GENERAL: cooperative HEENT: Atraumatic; EYES; Anicteric, Normal Conjunctiva NECK; supple, normal thyroid, RESPIRATORY: Diminished to auscultation CARDIOVASCULAR: Regular S1 S2, GI: soft, normoactive bowel sounds, : No Renal angle tenderness; EXTREMITIES: No edema, no clubbing, MUSCULOSKELETAL: no muscle waisting NEURO: Awake; no lateralizing signs. SKIN: No Rash PSYCH; Flat affect - Physical Exam Vitals/I&O's: Vital Signs Temp Pulse Resp BP Pulse Ox 98.4 F 79 20 H 113/54 L 93 10/23/19 07:46 10/23/19 07:46 10/23/19 07:46 10/23/19 09:35 10/23/19 09:46 Oxygen Flow Rate (L/min) 2 Oxygen Delivery Method Nasal Cannula Weight: 117.48 kg Body Mass Index (BMI) 39.5 Intake and Output for Last 24 Hours 10/21/19 10/22/19 10/23/19 23:59 23:59 23:59 Intake Total 1474 / 1474 650 / 890 1889.75 / 1889.75 Balance 1474 / 1474 650 / 890 1889.75 / 1889.75 Laboratory Results 10/22/19 11:17: POC Glucose 397 H 10/22/19 16:36: POC Glucose 278 H 10/22/19 22:33: POC Glucose 292 H 10/23/19 06:14: Sodium 139, Potassium 3.4 L, Chloride 106, Carbon Dioxide 27.0, Anion Gap 6, BUN 24 H, Creatinine 1.54 H, Estim Creat Clear Calc 39.48, Est GFR (MDRD) Af Amer 57 L, Est GFR (MDRD) Non-Af 47 L, BUN/Creatinine Ratio 15.6, Glucose 238 H, Calcium 8.4 L 10/23/19 06:28: POC Glucose 248 H Current Medications Acetaminophen (Tylenol) 650 mg PO Q6H PRN PRN PRN Reason: Pain Score 1-3/Temp > 100.7 F Last Admin: 10/22/19 22:35 Dose: 650 mg Documented by: Acetaminophen (Tylenol) 650 mg PO Q6H PRN PRN PRN Reason: Pain Score 1-3/10 Al Hydroxide/Mg Hydroxide (Mylanta Ii) 30 ml PO Q6H PRN PRN PRN Reason: Gastric Burning Albuterol Sulfate (Ventolin Aerosols) 2.5 mg INHALATION Q2H PRN PRN PRN Reason: SOB/Wheezing Aspirin (Ecotrin) 81 mg PO DAILY [facility] Last Admin: 10/23/19 09:33 Dose: 81 mg Documented by: Atropine Sulfate () 0.5 mg IV UD PRN PRN Reason: HR <50 bpm Carvedilol (Coreg) 6.25 mg PO BID [facility] Last Admin: 10/23/19 09:33 Dose: 6.25 mg Documented by: Clopidogrel Bisulfate (Plavix) 75 mg PO DAILY [facility] Last Admin: 10/23/19 09:33 Dose: 75 mg Documented by: Dextrose (D50w Syringe) 0 gm IV X1 PRN; Protocol PRN Reason: Hypoglycemia Folic Acid (Folic Acid) 0.5 mg PO DAILYCM [facility] Last Admin: 10/23/19 07:50 Dose: 0.5 mg Documented by: Furosemide (Lasix) 40 mg PO BIDLX [facility] Last Admin: 10/23/19 09:33 Dose: 40 mg Documented by: Glucagon () 1 mg IM .X1 PRN PRN Reason: Hypoglycemia Heparin Sodium (Beef Lung) (Heparin 500 Unit/5 Ml (100/Ml)) 500 unit IV UD PRN PRN Reason: HEPARIN FLUSH Heparin Sodium (Porcine) (Heparin Na) 0 unit IV UD PRN; Protocol Sodium Chloride () 1,000 mls @ 15 mls/hr IV .Q48H [facility] Last Admin: 10/22/19 16:29 Dose: Not Given Documented by: Sodium Chloride () 1,000 mls @ 75 mls/hr IV .[id number] [facility] Last Infusion: 10/23/19 09:45 Dose: Infused Documented by: Insulin Human Lispro (Humalog Kwbeatrizpen (Bkc)) 0 unit SC ACHS [facility]; Protocol Last Admin: 10/23/19 07:51 Dose: 6 units Documented by: Labetalol HCl (Trandate) 5 mg IV X1 PRN PRN Reason: SBP > 160 when pulling sheath Lorazepam (Ativan) 1 mg PO Q6H PRN PRN PRN Reason: BACK SPASMS/ANXIETY Last Admin: 10/20/19 15:48 Dose: 1 mg Documented by: Magnesium Hydroxide (Milk Of Magnesia) 30 ml PO DAILY PRN PRN PRN Reason: Constipation Melatonin (Melatonin) 3 mg PO QHS PRN PRN PRN Reason: INSOMNIA Last Admin: 10/22/19 22:34 Dose: 3 mg Documented by: Metoclopramide HCl (Reglan) 5 mg IV Q6H PRN PRN PRN Reason: NAUSEA/VOMITING Morphine Sulfate () 2 mg IV Q3H PRN PRN PRN Reason: Pain Score 6-10/10 Morphine Sulfate () 2 - 4 mg IV Q4H PRN PRN PRN Reason: Pain Score 1-10/10 Nitroglycerin (Nitrostat) 0.4 mg SUBLINGUAL Q5M PRN PRN Reason: CARDIAC/CHEST PAIN Ondansetron HCl (Zofran) 4 mg IV Q8H PRN PRN PRN Reason: NAUSEA/VOMITING Pravastatin Sodium (Pravachol) 80 mg PO QHS [facility] Last Admin: 10/22/19 22:38 Dose: 80 mg Documented by: Psyllium Hydrophilic Mucilloid (Metamucil) 1 packet PO DAILY PRN PRN PRN Reason: Constipation Sodium Chloride () 10 - 40 ml IV UD PRN PRN Reason: SALINE FLUSH Last Admin: 10/22/19 14:49 Dose: 10 ml Documented by: Sodium Chloride () 500 ml IV BOLUS PRN PRN Reason: VASO-VAGAL PROTOCOL [facility] Last Admin: 10/22/19 22:37 Dose: 0.4 mg Documented by: Discharge Diet: Low fat/ Low Cholesterol, 1800 Calorie Control Diet Discharge Activity: Return to Normal Activity Home Medications: Medications to take at Discharge Aspirin [Aspirin EC] 81 mg PO QODAY 10/19/19 Cholecalciferol (VIT D3) [Vitamin D3] 1,000 unit PO DAILY 10/19/19 Docusate Sodium [Colace] 100 mg PO DAILY 10/19/19 Folic Acid 0.4 mg PO DAILY 10/19/19 Furosemide [Lasix] 40 mg PO BID 10/19/19 Krill/[place]-3/Dha/Epa/Lipids [Krill Oil 300 mg Softgel] 1 cap PO DAILY 10/19/19 Metformin HCl [Metformin ER Osmotic] 1,000 mg PO DAILY 10/19/19 Multivitamin with Minerals [Multiple Vitamin] 1 ea PO DAILY 10/19/19 Oxybutynin Chloride [Oxybutynin Chloride ER] 10 mg PO DAILY 10/19/19 Potassium Chloride 20 meq PO DAILY 10/19/19 Pravastatin [Pravachol] 80 mg PO DAILY 10/19/19 Tamsulosin HCl 0.4 mg PO QHS 10/19/19 Ubidecarenone [Co Q-10] 10 mg PO DAILY 10/19/19 Carvedilol [Coreg (Beta Ramandeep)] 6.25 mg PO BID #180 tab 10/23/19 Clopidogrel Bisulfate [Plavix] 75 mg PO DAILY #90 tab 10/23/19 Insulin NPH Human Isophane [Novolin N] 20 unit SQ BREAKFAST #0 10/23/19 Insulin NPH Human Isophane [Novolin N] 20 unit SQ QHS #0 10/23/19 Following Prescrptions Were Given to Patient: Carvedilol [Coreg (Beta Ramandeep)] 6.25 mg PO BID #180 tab Transmission Status: Pending to [id number] Clopidogrel Bisulfate [Plavix] 75 mg PO DAILY #90 tab Transmission Status: Pending to [id number] Primary Care Physician: Paulo Nguyen MD [Primary Care Provider] - Please follow up with your Primary Care Physician in: in 5-7 days Please Follow Up With: Ever Guidry MD Disposition: Home Minutes spent on discharge:: 35 Patient Condition:: Stable Medical Necessity - Tobacco Use Smoking Status: Former smoker Tobacco Use: Non-smoker Meaningful Use Info Meaningful Use Diagnoses (Choose all that apply): AMI - AMI/Post PCI/Angioplasty Aspirin given w/in 24hrs of arrival?: Yes ASA at discharge?: Yes Antiplatelet Therapy at Discharge:: Yes Statins at discharge?: Yes Juan/ARB at discharge?: No Reason Juan/ARB not ordered:: Worsening renal disease Beta Ramandeep at discharge?: Yes Done w/ Acute [place] measure.: Yes Documented LVEF (%): 45 Code Visit Inpatient E&M: [id number] Disch Hosp
--- NOTE | 2019-10-23 10:52 | PHA.DC.MC ---
Pharmacy Service has performed discharge medication reconciliation and counseling for this patient. 1. CARVEDILOL 6.25MG PO BID 2. CLOPIDOGREL 75MG PO DAILY The patient's discharge medication list was reviewed for discrepancies and discrepancies were resolved. Home Medications Aspirin [Aspirin EC] 81 mg PO QODAY 10/19/19 Cholecalciferol (VIT D3) [Vitamin D3] 1,000 unit PO DAILY 10/19/19 Docusate Sodium [Colace] 100 mg PO DAILY 10/19/19 Folic Acid 0.4 mg PO DAILY 10/19/19 Furosemide [Lasix] 40 mg PO BID 10/19/19 Krill/[place]-3/Dha/Epa/Lipids [Krill Oil 300 mg Softgel] 1 cap PO DAILY 10/19/19 Metformin HCl [Metformin ER Osmotic] 1,000 mg PO DAILY 10/19/19 Multivitamin with Minerals [Multiple Vitamin] 1 ea PO DAILY 10/19/19 Oxybutynin Chloride [Oxybutynin Chloride ER] 10 mg PO DAILY 10/19/19 Potassium Chloride 20 meq PO DAILY 10/19/19 Pravastatin [Pravachol] 80 mg PO DAILY 10/19/19 Tamsulosin HCl 0.4 mg PO QHS 10/19/19 Ubidecarenone [Co Q-10] 10 mg PO DAILY 10/19/19 Carvedilol [Coreg (Beta Ramandeep)] 6.25 mg PO BID #180 tab 10/23/19 Clopidogrel Bisulfate [Plavix] 75 mg PO DAILY #90 tab 10/23/19 Insulin NPH Human Isophane [Novolin N] 20 unit SQ BREAKFAST #0 10/23/19 Insulin NPH Human Isophane [Novolin N] 20 unit SQ QHS #0 10/23/19 The patient was counseled on the following discharge medications and changes in medications for homegoing were reviewed. The Reason for Use, instructions for use, and potential side effects were reviewed for all new medications. The patient's questions regarding all of their medications were answered. The patient was able to verbally demonstrate an understanding of their discharge medications.
--- NOTE | 2019-10-23 10:56 | CASEMGMT ---
Pt would like a WW at discharge. Pt states no preference for DME company and this ANIBAL JHA provided a verbal list of local DME companies at this time. Pt states he would like it delivered prior to discharge. [place] [facility] to Aleksey at [facility] [place] of [place] and [place], voices understanding. Aleksey states that WW will be delivered vimal. Charlene BARNETT updated, voices understanding at this time. Rani BARNETT CM
--- NOTE | 2019-10-23 11:42 | NURSING ---
Reviewed and agreed on all charting with Melecio Serrato RN
== END 2019-10-23 11:26 | disposition home or self-care (01) | DRG 247 ==
LOC: ED 19:43 → PCU 20:03 → ICU 10-20 13:47 → PCU 10-22 07:46 → ICU 10-22 08:27 → PCU 10-22 08:27
PROVIDERS: Internal Medicine Cardiovascular Disease; Student in an Organized Health Care Education/Training Program; Admitting Provider Internal Medicine; Emergency Provider Emergency Medicine; Family Provider Family Medicine; PCP Family Medicine; Referring Provider Internal Medicine; Visit Provider Internal Medicine
DX: I21.4 Non-ST elevation (NSTEMI) myocardial infarction (principal); N17.9 Acute kidney failure, unspecified; E66.01 Morbid (severe) obesity due to excess calories; I10 Essential (primary) hypertension; N18.3 Chronic kidney disease, stage 3 (moderate); E11.22 Type 2 diabetes mellitus with diabetic chronic kidney disease; E78.5 Hyperlipidemia, unspecified; R51 Headache; I25.10 Atherosclerotic heart disease of native coronary artery without angina pectoris; I25.5 Ischemic cardiomyopathy; I25.82 Chronic total occlusion of coronary artery; I12.9 Hypertensive chronic kidney disease with stage 1 through stage 4 chronic kidney disease, or unspecified chronic kidney disease; Z68.39 Body mass index [BMI] 39.0-39.9, adult; Z79.4 Long term (current) use of insulin; Z87.891 Personal history of nicotine dependence
CPT/HCPCS: 36415; 70450; 71045; 80048; 80053; 80061; 82962; 83036; 83735; 83880; 84484; 85025; 85027; 85347; 85610; 85730; 92928; 93005; 93306; 93458; 97110; 97116; 97162; 97166; 97530; 97802; 99152; 99153; 99285; C1760; J7030; J7040; Q9957; Q9967; A4216; C1725; C1757; C1769; C1874; C1887; C1894; C8929; C9600

== ENCOUNTER → 2019-10-29 20:04 | Outpatient (CLI) | payer MEDICARE, OTHER, SELFPAY ==
[2019-10-19 20:10] VITALS: BMI 39.5
== END ==
PROVIDERS: Family Provider Family Medicine; PCP Family Medicine; Referring Provider Family Medicine; Visit Provider Family Medicine
DX: G47.33 Obstructive sleep apnea (adult) (pediatric) (principal)
CPT/HCPCS: 95811

== ENCOUNTER → 2019-11-01 09:51 | Outpatient (CLI) | payer MEDICARE, OTHER, SELFPAY ==
[2019-10-19 20:10] VITALS: BMI 39.5
--- NOTE | 2019-11-01 10:37 | PCM.CR.HP2 ---
CR - History & Physical - General Arrival date:: 11/01/19 Arrival time:: 09:40 Date of Referral:: 10/22/19 Date of CR Evaluation:: 11/01/19 Referring Physician: DR. JOSE E JOY Primary Diagnosis: NSTEMI, PCI W/CORONARY STENTING - History of Present Cardiac Event Onset Date: Enter Onset Date of cardiac illnesses in Comment field below Acute Myocardial Infarction within 12 months:: Yes - NSTEMI 10/20/2019 PTCA or coronary stenting:: Yes - 10/20/2019 Type of Symptoms:: SHORTNESS OF BREATH, CHEST PAIN Interventions with present event:: ADMITTED, HEART CATH LEAD TO STENTING OF CORONARY VESSEL Were there any complications?: NONE - Medications Home Medications: Ambulatory Orders Medication Instructions Recorded Aspirin [Aspirin EC] 81 mg PO QODAY 10/19/19 Cholecalciferol (VIT D3) [Vitamin 1,000 unit PO DAILY 10/19/19 D3] Docusate Sodium [Colace] 100 mg PO DAILY 10/19/19 Folic Acid 0.4 mg PO DAILY 10/19/19 Furosemide [Lasix] 40 mg PO BID 10/19/19 Krill/[place]-3/Dha/Epa/Lipids 1 cap PO DAILY 10/19/19 [Krill Oil 300 mg Softgel] Metformin HCl [Metformin ER 1,000 mg PO DAILY 10/19/19 Osmotic] Multivitamin with Minerals 1 ea PO DAILY 10/19/19 [Multiple Vitamin] Oxybutynin Chloride [Oxybutynin 10 mg PO DAILY 10/19/19 Chloride ER] Potassium Chloride 20 meq PO DAILY 10/19/19 Pravastatin [Pravachol] 80 mg PO DAILY 10/19/19 Tamsulosin HCl 0.4 mg PO QHS 10/19/19 Ubidecarenone [Co Q-10] 10 mg PO DAILY 10/19/19 Carvedilol [Coreg (Beta Ramandeep)] 6.25 mg PO BID #180 tab 10/23/19 Clopidogrel Bisulfate [Plavix] 75 mg PO DAILY #90 tab 10/23/19 Acetaminophen [Tylenol Extra 500 - 1,000 mg PO Q6H PRN PRN 11/01/19 Strength] Insulin NPH Human Isophane 40 unit SQ QHS 11/01/19 [Novolin N] Insulin NPH Human Isophane 48 unit SQ BREAKFAST 01/23/20 [Novolin N] - Allergies Allergies/Adverse Reactions: Allergies No Known Allergies Allergy (Verified 10/19/19 18:44) - Sleep Disorder Evaluation Hx of Sleep Apnea: Yes Do you snore loudly (louder than talking or can be heard through closed doors)?: Yes - JUST DIAGNOSED AND WAITING ON HOME CPAP TO ARRIVE. Has anyone observed you stop breathing during sleep?: Yes History of Hypertension (for STOP score): Yes Advanced Directives - Advanced Directives Power of Deburrer Machine: No Living Will: No Advance Directives Information Provided: Yes Advance Directives on File: No DNR Order?:: No - MOLST See MOLST form: No Past Medical History - Past Medical Illness Medical History: Past Medical History (Last Updated 10/22/19 @ 19:18 by Ro Monroe) Atherosclerotic heart disease of [place] coronary artery without angina pectoris (Chronic) I25.10 Presence of stent in coronary artery (Chronic) Onset Date: 10/20/19 Z95.5 Successful PTCA/GAIL mid LCX sequeing into large OM#1, utilizing an export catheter and double wire technique, placing a 3.0 x 38 Promus Synergy, post dilated in proximal 2/3 with a 4.0 x 12 NC balloon; 100%-->0%, no dissection. 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 per cath 10/20/19 Arteriosclerotic cardiovascular disease (Chronic) I25.10 Left Ventricular Ejection Fraction: by LV Gram 30%; Anterior Hypokinesis. Inferior Basal Hypokinesis - Severe. Inferior Mid Hypokinesis. Apical Hypokinesis. Elevated Left Ventricular End Diastolic Pressure LVEDP: 23 mmHg. LEFT MAIN: Angiographically normal. LEFT ANTERIOR DESCENDING ARTERY: PROX LAD: Mild calcification, eccentric: 25 % Stenosis; MID LAD: pre DX2: hazy: 50 % Stenosis, Mild luminal irregularities; DIAGONAL 1: Proximal - small caliber vesseld: diffuse: 85 % Stenosis DIAGONAL 2: Ostial - 50 % Stenosis; CIRCUMFLEX ARTERY: PROX CIRC: is occluded. RIGHT CORONARY ARTERY: PROX RCA: 25 - 50 % Stenosis; MID RCA: Mild luminal irregularities DISTAL RCA: Mild luminal irregularities; RT PDA: Proximal - Mild luminal irregularities; COLLATERAL FLOW: Collateral flow from Right to Left Per LHC per PFM 10/20/2019 NSTEMI (non-ST elevated myocardial infarction) (Acute) I21.4 Hypertension (Chronic) I10 DM type 2 (diabetes mellitus, type 2) (Chronic) E11.9 Hyperlipidemia (Chronic) E78.5 Obesity (Chronic) E66.9 - Past Surgical History Surgical History: Past Surgical History (Last Updated 10/22/19 @ 08:49 by Felicita Arriaga) History of left heart catheterization Onset Date: 10/20/19 Z98.890 Left Ventricular Ejection Fraction: by LV Gram 30%; Anterior Hypokinesis. Inferior Basal Hypokinesis - Severe. Inferior Mid Hypokinesis. Apical Hypokinesis. Elevated Left Ventricular End Diastolic Pressure LVEDP: 23 mmHg. LEFT MAIN: Angiographically normal. LEFT ANTERIOR DESCENDING ARTERY: PROX LAD: Mild calcification, eccentric: 25 % Stenosis; MID LAD: pre DX2: hazy: 50 % Stenosis, Mild luminal irregularities; DIAGONAL 1: Proximal - small caliber vesseld: diffuse: 85 % Stenosis DIAGONAL 2: Ostial - 50 % Stenosis; CIRCUMFLEX ARTERY: PROX CIRC: is occluded. RIGHT CORONARY ARTERY: PROX RCA: 25 - 50 % Stenosis; MID RCA: Mild luminal irregularities DISTAL RCA: Mild luminal irregularities; RT PDA: Proximal - Mild luminal irregularities; COLLATERAL FLOW: Collateral flow from Right to Left Per LHC per PFM 10/20/2019 Presence of coronary angioplasty implant and graft Onset Date: ~10/20/19 Z95.5 Successful PTCA/GAIL mid LCX sequeing into large OM#1, utilizing an export catheter and double wire technique, placing a 3.0 x 38 Promus Synergy, post dilated in proximal 2/3 with a 4.0 x 12 NC balloon; 100%-->0%, no dissection. 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 per cath 10/20/19 Surgical History: total knee arthroplasty - right knee Social History - Smoking History Smoking Status: Former smoker Hx Tobacco Use: No Hx Smoking Exposure: No - Alcohol Use Alcohol Usage: Yes - OCCASIONAL - Substance Abuse Hx Substance Use: No - Occupation Occupation (List type of work in comments):: Retired - Hobbies, Recreation, Social Activities Hobbies: None Recreational Activities: I am able to engage in a few activities - LIMITED Y CHRONIC BACK PROBLEMS/PAIN. WALKS ABOUT 25-30 STEPS ADN HAS TO STOP REST Social Environment - Status Marital Status: - Current Living Arrangements Living Environment:: Spouse - Safety Do you feel safe in your surroundings?: Yes Review of Systems - Review of Systems Hints: Right click = Denies (Slash). Left click = Reports ([place]) Review of Present Symptoms: Reports: Shortness of Breath with Exertion, Fatigue. Denies: Angina, Appetite - Special Diet, Sleep - Normal - WAITING TO START USING A CPAP FOR SLEEP APNEA., Sexual Changes - Pain Is Patient Pain Free?: No Pain Location: back - CHRONIC PAIN Pain Level: 12/17 - USES TYLENOL TO CONTROL THE PAIN. Risk Factor Assessment - Chief Complaint Chief Complaint: PLEASENT 74 YR OLD MALE WHO PRESENTST O CR FOLLOWING RECENT NSTEMI AND PCI INTERVENTION ON 10/20/2019. PATIENT IS A DM TYPE II WIHT CHRONIC LOWER BACK PAIN AND LIMITED MOBILITY. - Vital Signs Temperature: 98.7 F Respiratory Rate: 14 Pulse Ox: 96 Blood Pressure: 114/74 Nailbeds:: PINK - Pulse Pulse Rate: 100 Pulse Rhythm: Regular - H/O [address] AV BLOCK - Hypertension Blood Pressure Sitting - Left Arm: 114/74 - Blood Cholesterol/Lipids Total Cholesterol (mg/dL) Goal = less than 200 mg/dL: 150 HDL Cholesterol (mg/dL) Goal = less than 40 mg/dL: 43 LDL Cholesterol (mg/dL) Goal = less than 70 mg/dL: 104 Triglycerides (mg/dL) Goal = less than 150 mg/dL: 71 - Diabetes Diabetic History: Type II, Medication Dependent, Insulin Dependent Nutrition Referral for Diabetes: Yes - Obesity Height: 5 ft 8 in - WHY WEIGHT, INITIAL DSMNT & MNT, and NUTRITIONAL THEREPAY Weight:: 259 lb Weight in Pounds: 259.0 lbs Weight Source: Standing Scale Body Mass Index (BMI): 39.4 Nutritional Referral for Obesity: Yes - Physical Inactivity Physical Inactivity: None - SEDENTARY LIFESTYLE - Risk Stratification Risk Guidelines: Lowest Risk: Risk Factor for Smoking, Risk Factor for Depression, Moderate Risk: Risk Factor for Dyslipidemia, Risk Factor for Diabetes - GLUCOSE 238, A1C 8.5, Risk Factor for Hypertension, Highest Risk: Risk Factor for Obesity, Risk Factor for Sedentary Lifestyle - For Smoking Smoking Risk Guidelines: Smoking Low Risk: None or quit greater than 6 months ago. Smoking Moderate Risk: Smoker or quit 6 months or less ago. Smoking High Risk: Smoker - For Dyslipidemia Dyslipidemia Risk Guidelines: Low Risk: Moderate Risk: High Risk: 15-25% fat 25.1-29% fat >/= 30% fat. <7% sat fat 7-9% sat fat >9% sat fat. <150 mg chol 150-299 mg chol >/= 300 mg chol. LDL <100 LDL 100-129 LDL >/= 130. Chol/HDL ratio <5.0 Chol/HDL ratio 5.0-6.0 Chol/HDL ratio >6.0. Triglycerides <100 Triglycerides 100-149 Triglycerides >/= 150 - For Diabetes Mellitus Diabetes Risk Guidelines: Diabetes Low Risk: HgA1c <6.5% and/or FBG <120. Diabetes Moderate Risk: HgA1c 6.6-7.9% and/or FBG 120-180. Diabetes High Risk: HgA1c >/= 8% and/or FBG >180 - For Obesity/Overweight Obesity/Overweight Risk Guidelines: Obesity Low Risk: BMI <25.0. Obesity Moderate Risk: BMI 25-29.9. Obesity High Risk: BMI >/= 30.0 - For Hypertension Hypertension Risk Guidelines: Hypertension Low Risk: Systolic <120 and Diastolic <80. Hypertension Moderate Risk: Systolic 120-139 and Diastolic 80-89. Hypertension High Risk: Systolic >/= 140 and Diastolic >/= 90 - For Sedentary Lifestyle Sedentary Lifestyle Risk Guidelines: Sedentary Lifestyle Low Risk: >/= 1,500 kcal/week. Sedentary Lifestyle Moderate Risk: 700-1,499 kcal/week. Sedentary Lifestyle High Risk: < 700 kcal/week - For Depression Depression Risk Guidelines: Depression Low Risk: Not clinically depressed. Depression Moderate Risk: Mildly depressed. Depression High Risk: Clinically depressed Motivation - Motivation to Participate On a scale of 1 to 10, how prepared are you to commit to attending program?: 9 What do you see as barriers to successfully being able to complete the program?: BACK PAIN What do you see as the benefits of succesfully completing the program? In other words, what do you hope to get out of participating in the program?: GETTING STRONGER Are there issues you are dealing with that will interfere with completing the program?: CHRONIC BACK PAIN DIFFICULTY WALKING Do you have a spouse or signficant other, family or friends who will help support you to complete the program?: YES
--- NOTE | 2019-11-01 11:41 | PCM.CR.ITP ---
General Information - General Information Admitting Diagnosis: NSTEMI PCI W/STENTING - Education/Goals Barriers to Learning: Hearing Impairment, Vision Impairment Individual Counseling: Initial Assessment: Abnormal Cholesterol Levels, High Blood Pressure, Overweight/Obesity, Diabetes, A. Fasting Blood Sugar >100 - 238, A1C 8.5, B. Waist Circumference >35/Females >40/Males, Hypertension Cardiac Rehabilitation Goals: 1. Maintain the individual as the primary focus of care. 2. To improve the patient's quality of life. 3. Identification of cardiac risk factors and provide cardiac risk factor management. 4. Enhance the psychosocial status of the patient. 5. Reconditioning enough to allow the patient to resume customary activities. 6. Control symptoms of cardiac disease Scale for measuring improvement of personal goals: Enter appropriate number in Comments. 2 = Unchanged. 3 = Slightly Better. 4 = Moderate Improvement. 5 = Met my Goal Personal Goals: Initial Assessment: Improve management of stress and emotions, Improve energy level, Participate in home exercise program, Improve knowledge of cardiac disease, Improve muscle strength and endurance, Improve diet and eating habits (eat healthier) Exercise - Initial Assessment - Visit Date of Eval: 11/01/19 Session #:: 0 - Stages of Change Stages of Change:: Action - Physician Prescribed Exercise Modalities: Airdyne, NuStep, SciFit Frequency (days/week): 3x/week for 12 weeks [36 sessions] Duration (Minutes):: 30 Intensity: 60-80% of age predicted maximum heart rate reserve METs - Progression: 0.5-1.0 MET, RPE 11-14 WEEK: 2 Target Heart Rate:: 94-122 - Hypertension Do any of the following apply?: Yes, Medication Resting Blood Pressure:: 114/74 - Intervention Home Exercise/Activity Goal:: Sitting Time <3 hrs/day - Education Goals:: Warm-up, RPE RONNIE Scale, S/S, Safe Exercise, Self-Monitoring - Exercise Program Goals Exercise Program Goals: Aerobic Activity >30 min Nutrition - Initial Assessment - Program Goals Nutrition Program Goals: LDL <70. Total Cholesterol <200. HDL >45. Triglycerides <150. HgbA1C <7%. BMI <25 - Visit Date of Assessment:: 11/01/19 - Lipids Total Cholesterol (mg/dL) Goal = less than 200 mg/dL: 150 HDL Cholesterol (mg/dL) Goal = less than 45 mg/dL: 43 LDL Cholesterol (mg/dL) Goal = less than 70 mg/dL: 104 Triglycerides (mg/dL) Goal = less than 150 mg/dL: 71 - Diabetes Diabetes:: Yes Fasting blood glucose:: 238 - 0 Hgb A1C: 8.5 Insulin: Yes Non-Insulin Dependent?: Yes Do you monitor your blood sugar at home?: Yes - Weight Management Height: 5 ft 8 in Weight:: 259 lb Body Fat %:: 39.5 - Intervention Referral to dietitian:: Yes - NUTRITIONAL THERAPY - WHY WEIGHT PROGRAM Referral to Diabetic Clinic:: Yes - INITIAL DSMNT & MNT Will attend diet classes:: Yes - Education Gave educational materials for:: Signs & symptoms of hypoglycemia, Signs & symptoms of hyperglycemia, Relate diabetes to coronary artery disease, Healthy eating Tobacco - Initial Assessment - Program Goals Tobacco Program Goals: Complete smoking cessation. Attend education classes. Improve Knowledge Test score - Stage of Change Stages of Change:: Action - Learning Barriers Learning Barriers: Hearing, Vision, Ready to Learn - Family Support Do you have family support?: Yes - Tobacco Use Tobacco Use: Non-smoker Do you use smokeless tobacco?: No - Intervention Smoking Cessation Referral:: No Individual Education/Counseling:: No Education Schedule Given:: Yes - Education Attended class for:: Treating Heart Disease, How The Heart Works, What it means to have Heart Disease, How Coronary Artery Disease is Diagnosed, Heart Procedures, What Heart Medications Do, Risk Factors & Modifications, Living an Active Life, Nutrition, Emotions & Heart Disease, Stress Management & Relaxation, Sleep Disorders & Heart Disease Psychosocial - Initial Assess - Target Goals Target Goals: Assess presence or absence of depression. Using a valid screening tool, maximizes coping skills. Positive support system - Stages of Change Stages of Change:: Action - Psychosocial Test Tool Used:: HANDS Depression Questionnaire - Intervention PS - Interventions: Yes Attend Stress Management Classes, No Referral to Mental Health, No Referral to [facility] Case Management, No Referral to Physician, No Uses Stress Management Skills - Education Gave educational materials for:: Coping techniques, Signs & symptoms of depression, Stress management, Relaxation techniques - Patient/Program Goal Preventative Medication(s):: Aspirin, GRETEL inhibitor, Clopidogrel, Beta julian, Statin/lipid - Assistive Devices Assistive Devices:: Walker Fall Risk Assessed:: Yes Patient Health Questionnaire Initial Assessment 1. Little interest or pleasure in doing things: Not at all 2. Feeling down, depressed, or hopeless: Not at all 3. Trouble falling or staying asleep, or sleeping too much: More than half the days 4. Feeling tired or having little energy: More than half the days 5. Poor appetite or overeating: Nearly every day 6. Feeling bad about yourself -- or that you are a failure or have let yourself or your family down: Not at all 7. Trouble concentrating on things, such as reading the newspaper or watching television: Not at all 8. Moving or speaking so slowly that other people could have noticed. Or the opposite - being so fidgety or restless that you have been moving around a lot more than usual: Not at all 9. Thoughts that you would be better off , or of hurting yourself in some way: Not at all How difficult have these problems made it for you to do your work, take care of things at home, or get along with other people?: Not difficult at all Total Score: 7 MONIE-Q SV Test - Statements CAD is a disease of the arteries in the heart: False Examples of risk factors for heart disease: True Angina is chest pain or discomfort: True The benefits of resistance training include: True Eating more meat and dairy products: False Anti-platelet medications such as aspirin are important: True The only effective way to manage stress: False An exercise warm-up slowly increases heart rate: True Prepared, processed foods usually have high sodium: False Depression is common after a heart attack: I Don't Know The statin medications lower cholesterol: True To control blood pressure, lower the amount of sodium: True If someone gets chest discomfort during walking: False Transfats are partially hydrogenated vegetable oils: True Sleep apnea that is not treated increases the risk: True To control cholesterol, one should become a vegetarian: False Someone knows if he/she is exercising at the right level: I Don't Know Diabetes cannot be prevented with exercise & health eating: False Stress is a large risk for heart attack: True A diet that can help lower blood pressure is rich in: True - Total Score Total Correct Responses: 16 Self-Efficacy Initial Assessment We would like to know how confident you are in doing certain activities. Please select your confidence level for:: Select your confidence level for the following using the scale 1-10 where 1 is not at all confident and 10 is totally confident. Your score is the average of all 6 responses. Fatigue: How confident are you that you can keep the fatigue caused by your disease from interfering with the things you want to do? Select Number: 8 Physical Discomfort or Pain: How confident are you that you can keep the physical discomfort or pain of your disease from interfering with the things you want to do? Select Number: 8 Emotional Distress: How confident are you that you can keep the emotional distress caused by your disease from interfering with the things you want to do? Select Number: 8 Other Symptoms or Health Problems: How confident are you that you can keep other symptoms or health problems from interfering with the things you want to do? Select Number: 8 Different Tasks and Activities: How confident are you that you can do the different tasks and activities needed to manage your health condition so as to reduce your need to see a doctor? Select Number: 8 Medication: How confident are you that you can do things other than just taking medication to reduce how much your illness affects your everyday life? Select Number: 8 Total Score:: 8 Nutrition Survey - Nutrition Survey Instructions Scoring Instructions: Scoring is as follows: Yes = 1 points. No = 0 point. Patient score that is >/=12 is considered to be at potential nutritional risk and could benefit from a referral to a registered dietitian. - Nutrition Survey Initial Have you lost >10 lbs over the past 2 months without trying?: No Are you following a special diet at home for diabetes, low fat, or low salt?: No Are you interested in meeting with a dietitian for help understanding your diet?: Yes Do you eat less than 3 meals a day?: Yes Do you eat fatty meats (mcclellan, sausage, ribs, etc), fried foods, desserts, large amounts of salad dressings, margarine, butter, or cheese most days?: Yes Do you have food allergies? [Enter types in comment field]: No Do you eat in restaurants more than 3 times a week?: No Do you season food with salt, seasoning salt, or garlic salt?: Yes Do you used canned, boxed, frozen meals, or soups, seasoning packets?: No Total Score:: 4
[2019-11-01 11:48] VITALS: BP 114/74
[2019-11-01 11:49] VITALS: BP 114/74; PULSE 100; RESP 14; TEMP 37.1; O2SAT 96; BMI 39.4
== END ==
PROVIDERS: PCP Family Medicine; Referring Provider Internal Medicine Cardiovascular Disease; Visit Provider Internal Medicine Cardiovascular Disease
DX: Z95.5 Presence of coronary angioplasty implant and graft (principal)

== ENCOUNTER 2019-11-09 15:15 | Outpatient (RCR) | payer MEDICARE, OTHER, SELFPAY ==
[2019-11-01 11:35] VITALS: BMI 39.4
== END 2019-11-09 23:59 ==
LOC: CR 15:15
PROVIDERS: PCP Family Medicine; Referring Provider Internal Medicine Cardiovascular Disease; Visit Provider Internal Medicine Cardiovascular Disease
DX: I25.10 Atherosclerotic heart disease of native coronary artery without angina pectoris (principal); Z95.5 Presence of coronary angioplasty implant and graft
CPT/HCPCS: 93798

== ENCOUNTER 2019-12-07 15:15 | Outpatient (RCR) | payer MEDICARE, OTHER, SELFPAY ==
[2019-11-05 13:15] VITALS: BMI 40.4
--- NOTE | 2019-12-03 08:20 | CR.ITP_ITS ---
Diagnosis - General Information Admitting Diagnosis: PCI W/CORONARY STENT Personal Learning Style:: Audio/Visual, Written Barriers to Learning: Hearing Impairment Stage of change r/t lifestyle modifications:: Action Gave educational material for:: Treating Heart Disease, Emotions & Heart Disease, Stress Management & Relaxation, Sleep Disorders & Heart Disease, How The Heart Works, What it means to have Heart Disease, How Coronary Artery Disease is Diagnosed, Heart Procedures, What Heart Medications Do, Risk Factors & Modifications, Living an Active Life, Nutrition - Education/Goals Individual Counseling: Initial Assessment: Abnormal Cholesterol Levels, High Blood Pressure, Overweight/Obesity, Diabetes Cardiac Rehabilitation Goals: 1. Maintain the individual as the primary focus of care. 2. To improve the patient's quality of life. 3. Identification of cardiac risk factors and provide cardiac risk factor management. 4. Enhance the psychosocial status of the patient. 5. Reconditioning enough to allow the patient to resume customary activities. 6. Control symptoms of cardiac disease Personal Goals: Initial Assessment: Improve energy level, Participate in home exercise program, Improve knowledge of cardiac disease, Improve muscle strength and endurance, Improve diet and eating habits (eat healthier), Control risk factors (learn risk factor modification) Scale for measuring improvement of personal goals: Enter appropriate number in Comments. 2 = Unchanged. 3 = Slightly Better. 4 = Moderate Improvement. 5 = Met my Goal - Diagnosis & Disease Process Outcomes/Goals: Pt IDs own risk factors & lifestyle modifications by Session 10, Verbalizes symptoms of angina & response by session 3., Pt independently manages Plan/Interventions: Assist Pt to ID & engage in lifestyle modification to reduce CVD risk, Instruct on individual risk factors, Review symptoms of angina & emergency actions, Review secondary diagnosis & identify educational needs. 30 day Reassessments:: Progressing - Safety Referral to Physical Therapy: No Referral to [facility] Case Management: No Fall Risk Assessed:: Yes Assistive Devices:: Walker Exercise - 30-day Assessment - Visit Date of Eval: 12/03/19 Session #:: 11 - Physician Prescribed Exercise Modalities: NuStep, SciFit Frequency: 3x/week for 12 weeks [36 sessions] Intensity: 60-80% of age predicted maximum heart rate reserve Current METSs:: 4 Target Heart Rate:: 94-122 Current RPE:: 12-13 Maximum Excercise HR:: 124/68 Resting Blood Pressure: 132/74 EKG Type: SR W FIRST DEGREE AV BLOCK RARE PVCs NOTED. - Outcomes & Goals Goals:: Verbalizes understanding of THR, RPE & goal METS by session 6, Documents in home exercise log/reports 30 min aerobic 5 day/wk by DC, Demonstrates ac curate pulse taking by DC - Intervention & Plan Exercise Program Goals: Instruct on personal THR & RPE, Instruct on MET level & personal MET goal, Show patient to take own pulse /validate performance until accurate, Instruct on home exercise - 30-day Reassessments 30 day Reassessments:: Progressing - Physical Activity Home Exercise Physical Activity - Home Exercise: Safe Exercise, Warm-up, Self-monitoring, Cool-Down, Home Exercise > 30 min Daily, Sitting Time <3 hours/daily - Outcomes & Goals Outcomes/Goals: Demonstrates correct Warm-up/exercise Cool-Down (S3) if = 2.5 METs, Verbalizes symptoms of exercise intolerance by Session 3 (S3), Demonstrate safe equipment use (S3) & follows exercise prescrition (6) Nutrition - 30-Day Assessment - Program Goals Nutrition Program Goals: LDL <100 optimal. 100 - 129 Near optimal. 130 - 159 Borderline High. 160 - 189 High. Total Cholesterol <200 desirable. 200 - 239 Borderline High. >/= 240 High. HDL < 40 Low >/=60 High. Triglycerides <150 desirable. <199 optimal. VlDL 5 - 40. HgbA1C <7%. BMI <25 Patient has diagnosis of Hyperlipidemia (ICD E78)?: Yes - Visit Date of Assessment:: 12/03/19 Session #:: 11 - Cholesterol/Lipids Triglycerides (mg/dL): 71 - 10/20/2019 Total Cholesterol (mg/dL): 161 LDL Cholesterol (mg/dL): 104 HDL Cholesterol (mg/dL): 43 Determine presence & major risk factors that modify LDL goal: Hypertension or hypertensive medication, Low HDL cholesterol <40 mg/dL*, Family history of premature CHD in Male < 55 years: female <65 yearsFa, Age men > 45 years; women >/= 55 years Outcomes/Goals: Pt IDs own risk factors & lifestyle modifications by Session 10, Verbalizes symptoms of angina & response by session 3., Pt independently manages Intervention/Plan: Instruct on personal lipid levels & lipid goals/NCEP guidelines, Instruct on cholesterol Referral to dietitian:: Yes - MEDICAL NUTRITION THERAPY 30-day Reassessments:: Progressing - Diabetes (Other Core Measures) Diabetes Type: 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 Fasting blood glucose:: 238 - 10/23/2019 Hgb A1C (4.2 -6.3): 8.5 Insulin dependent injection/pump?: Yes - INSULIN INJECTION Do you monitor your blood sugar at home?: Yes Referral to Diabetic Clinic:: Yes - INITIAL DSMNT & MNT - Weight Mgt (Other Care) Not Applicable: Yes Height: 5 ft 8 in Weight:: 264 lb 8 oz BMI: 40.2 Diagnosis Overweight/Obesity BMI> 30% ICD-10 E66: Yes Diagnosis High BMI/Morbid Obesity BMI> 35% ICD-10 Z68: Yes Outcomes/Goals: Pt sets, maintains & shows weight loss goal & trend during rehab Intervention/Plan: Instruct on ideal BMI & set weight loss goal w/patient, Assist pt to ID & incorporate diet changes for weight loss by S9, Refer to S tructured Weight Loss program as appropriate, Encourage goal of using 250- 300dcal per session for weight loss 30 day Reassessments:: Progressing - Healthy Eating Habits Will attend diet classes:: Yes Outcomes/Goals:: Consume diet rich in vegs,fruits,whole grain/high fiber,fish,lean meat, Limit sat/trans fats,cholesterol & added salts & sugars Intervention/Plan:: Assess current eating habits 30-day Reassessments:: Progressing - Education Gave educational materials for:: Signs & symptoms of hypoglycemia, Signs & symptoms of hyperglycemia, Relate diabetes to coronary artery disease, Healthy eating Medical- 30-Day Assessment - Visit Date of Eval: 12/03/19 Session #:: 11 - Medication Compliance Preventative Medication(s):: Aspirin, GRETEL inhibitor, Clopidogrel/P2Y12 inhibit, Statin/lipid, Beta julian H/O mental health issues: depression, anxiety, or addiction?: No Doesn?t believe in the benefits of treatment?: No Believes medications are unnecessary or harmful?: No Has a concern about medication side effects?: No Expresses concern over the cost of medications?: No Outcomes/Goals: Verbalizes medications,desired effect & common side effects @ DC, Pt self-reports following medication regimen, Keeps card in wallet w/medications listed by DC Interventions/plans: Instruct on medication effects & side effects, Review medication list w/patient every two weeks, Instruct importance of taking meds as ordered & assist problem solving 30-day Reassessments:: Progressing - Tobacco Use Tobacco Use: Non-smoker - Hypertension Hypertension Diagnosis:: Hypertension ICD-10 I10 Resting Blood Pressure:: 124/68 [place] [employer] Hypertension Guidelines: [place] [employer] Hypertension Guidelines. Normal BP Less than 120/80. Elevated BP 120/80. Hypertension Stage 1: BP 130-139/80-89. Hypertesnion Stage 2: BP 140 or higher/90 or higher. Hypertension Crisis: BP higher than 180/120 Peak Exercise Blood Pressure:: 132/74 Outcomes/Goals: Able to verbalize/achieve optimal blood pressure <130/80, Incorporates diet changes & exercise for blood pressure control by DC Interventions/plan: Instruct on optimal blood pressure, hypertension & medications, Instruct on effects of sodium, alcohol, stress, exercise &hypertension 30 day Reassessments:: Progressing - Tobacco Cessation Referral Smoking Cessation Referral:: No Education Schedule Given:: Yes Psychosocial - 30-Day Assess - VIsit Date of Eval: 12/03/19 Session #:: 11 Not Applicable: Yes History of previous Mental disease:: No - Target Goals Target Goals: Assess presence or absence of depression. Using a valid screening tool, maximizes coping skills. Positive support system - Psychosocial Test Tool Used:: [employer] QOL Cardiac, PHQ-9 Questionnaire phq-9 Severity: Severity. 1-4 Minimal Depression. 5-9 Mild Depression. 10-14 Moderate Depression. 15-19 Moderately Sever Depression. 20-27 Severe Depression. Rule: - Referral to Behavioral Health PS - Interventions: Yes Attend Stress Management Classes, No Referral to Behavioral Health if PHQ-9 score >9:, No Referral to [facility], No Referral to Physician if PHQ-9 if score is 5-9: - Outcomes/Goals: See list Psychosocial Outcomes/Goals:: ID's personal stressors & 2 strategies to manage stress by discharge - Intervention/Plan: See List Interventions/Plan:: Assess stressors,coping strategies & signs of derpression on admission, Instruct/assist pt to develop coping & personal stress Mgt strategies, Instruct patient to recognize signs & symptoms of depression, Instruct patient to recog - 30-day Reassessments: 30 day Reassessments:: Progressing Patient Health Questionnaire 30-Day Re-eval Assessment 1. Little interest or pleasure in doing things: Not at all 2. Feeling down, depressed, or hopeless: Not at all 3. Trouble falling or staying asleep, or sleeping too much: Several days 4. Feeling tired or having little energy: Several days 5. Poor appetite or overeating: More than half the days 6. Feeling bad about yourself -- or that you are a failure or have let yourself or your family down: Not at all 7. Trouble concentrating on things, such as reading the newspaper or watching television: Not at all 8. Moving or speaking so slowly that other people could have noticed. Or the opposite - being so fidgety or restless that you have been moving around a lot more than usual: Not at all 9. Thoughts that you would be better off , or of hurting yourself in some way: Not at all Total Score: 4 Self-Efficacy 30-Day Re-eval Assessment We would like to know how confident you are in doing certain activities. Please select your confidence level for:: Select your confidence level for the follow ing using the scale 1-10 where 1 is not at all confident and 10 is totally confident. Your score is the average of all 6 responses. Fatigue: How confident are you that you can keep the fatigue caused by your disease from interfering with the things you want to do? Select Number: 8 Physical Discomfort or Pain: How confident are you that you can keep the physical discomfort or pain of your disease from interfering with the things you want to do? Select Number: 9 Emotional Distress: How confident are you that you can keep the emotional distress caused by your disease from interfering with the things you want to do? Select Number: 9 Other Symptoms or Health Problems: How confident are you that you can keep other symptoms or health problems from interfering with the things you want to do? Select Number: 8 Different Tasks and Activities: How confident are you that you can do the different tasks and activities needed to manage your health condition so as to reduce your need to see a doctor? Select Number: 9 Medication: How confident are you that you can do things other than just taking medication to reduce how much your illness affects your everyday life? Select Number: 9 Total Score:: 8
[2019-12-03 08:30] VITALS: BP 124/68; BP 132/74; BMI 40.2
== END 2019-12-08 23:59 ==
LOC: CR 15:15
PROVIDERS: PCP Family Medicine; Referring Provider Internal Medicine Cardiovascular Disease; Visit Provider Internal Medicine Cardiovascular Disease
DX: I25.10 Atherosclerotic heart disease of native coronary artery without angina pectoris (principal); Z95.5 Presence of coronary angioplasty implant and graft
CPT/HCPCS: 93798

== ENCOUNTER 2019-12-24 15:15 | Outpatient (RCR) | payer MEDICARE, OTHER, SELFPAY ==
[2019-11-05 13:15] VITALS: BMI 40.4
[2019-12-03 08:30] VITALS: BMI 40.2
[2019-12-09 00:57] VITALS: BP 124/68; BP 132/74
--- NOTE | 2019-12-31 08:34 | CR.ITP_ITS ---
Diagnosis - General Information Admitting Diagnosis: PCI with stent Personal Learning Style:: Audio/Visual, Demonstration, Group, Individual Preference, Written Gave educational material for:: Treating Heart Disease, Emotions & Heart Disease, Stress Management & Relaxation, Sleep Disorders & Heart Disease, How The Heart Works, What it means to have Heart Disease, How Coronary Artery Disease is Diagnosed, Heart Procedures, What Heart Medications Do, Risk Factors & Modifications, Living an Active Life, Nutrition - Education/Goals Cardiac Rehabilitation Goals: 1. Maintain the individual as the primary focus of care. 2. To improve the patient's quality of life. 3. Identification of cardiac risk factors and provide cardiac risk factor management. 4. Enhance the psychosocial status of the patient. 5. Reconditioning enough to allow the patient to resume customary activities. 6. Control symptoms of cardiac disease Scale for measuring improvement of personal goals: Enter appropriate number in Comments. 2 = Unchanged. 3 = Slightly Better. 4 = Moderate Improvement. 5 = Met my Goal - Diagnosis & Disease Process Outcomes/Goals: Pt IDs own risk factors & lifestyle modifications by Session 10, Verbalizes symptoms of angina & response by session 3., Pt independently manages, Other Additional Outcomes/Goals: Plan/Interventions: Assist Pt to ID & engage in lifestyle modification to reduce CVD risk, Instruct on individual risk factors, Review symptoms of angina & emergency actions, Review secondary diagnosis & identify educational needs., Other see comment 30 day Reassessments:: Progressing 30 day Reassessments:: Progressing 30 day Reassessments:: Progressing 30 day Reassessments:: Progressing Final Reassessments:: Progressing - Safety Fall Risk Assessed:: Yes Assistive Devices:: Walker Exercise - 60-day Assessment - Visit Date of Eval: 12/31/19 Session #:: 22 Comments:: Pt is currently on hold due to COVID 19. - Physician Prescribed Exercise Modalities: NuStep, SciFit Frequency: 3x/week for 12 weeks [36 sessions] Intensity: 60-80% of age predicted maximum heart rate reserve METs - Progression 0.5-1.0 weekly:: .5/week Current METSs:: 3.5 Target Heart Rate:: 94-122 Max HR 109 Current RPE:: 12-14 Maximum Excercise HR:: 109 Resting Blood Pressure: 120/60 Maximum Exercise Blood Pressure: 144/72 EKG Type: SR with First degree AV block rare PVC's noted - Outcomes & Goals Goals:: Verbalizes understanding of THR, RPE & goal METS by session 6, Documents in home exercise log/reports 30 min aerobic 5 day/wk by DC, Demonstrates accurate pulse taking by DC, Other additional outcome/goals: see below - Intervention & Plan Exercise Program Goals: Instruct on personal THR & RPE, Instruct on MET level & personal MET goal, Show patient to take own pulse /validate performance until accurate, Instruct on home exercise, Other additional plan/int - 30-day Reassessments 30 day Reassessments:: Progressing - Physical Activity Home Exercise Physical Activity - Home Exercise: Safe Exercise, Warm-up, Self-monitoring, Cool-Down, Home Exercise > 30 min Daily, Sitting Time <3 hours/daily - Outcomes & Goals Outcomes/Goals: Demonstrates correct Warm-up/exercise Cool-Down (S3) if = 2.5 METs, Verbalizes symptoms of exercise intolerance by Session 3 (S3), Demonstrate safe equipment use (S3) & follows exercise prescrition (6), Other: See below - 30-day Reassessments 30 day Reassessments:: Progressing Nutrition - 60-Day Assessment - Program Goals Nutrition Program Goals: LDL <100 optimal. 100 - 129 Near optimal. 130 - 159 Borderline High. 160 - 189 High. Total Cholesterol <200 desirable. 200 - 239 Borderline High. >/= 240 High. HDL < 40 Low >/=60 High. Triglycerides <150 desirable. <199 optimal. VlDL 5 - 40. HgbA1C <7%. BMI <25 - Visit Date of Assessment:: 12/31/19 Session #:: 22 - Cholesterol/Lipids Determine presence & major risk factors that modify LDL goal: Hypertension or hypertensive medication Outcomes/Goals: Pt IDs own risk factors & lifestyle modifications by Session 10, Verbalizes symptoms of angina & response by session 3., Pt independently manages, Other Additional Outcomes/Goals: Intervention/Plan: Advocate for lipid panel cholesterol medication if applicable, Instruct on personal lipid levels & lipid goals/NCEP guidelines, Instruct on cholesterol, Other additional plan/int Referral to dietitian:: Yes - medical nutrician therapy 30-day Reassessments:: Progressing - Diabetes (Other Core Measures) Diabetes Type: 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 Fasting blood glucose:: 166 Non-Insulin Dependent?: Yes Do you monitor your blood sugar at home?: Yes Referral to Diabetic Clinic:: Yes 30-day Reassessments:: Progressing - Weight Mgt (Other Care) Height: 5 ft 8 in Weight:: 119.97 kg BMI: 40.1 Diagnosis High BMI/Morbid Obesity BMI> 35% ICD-10 Z68: Yes Outcomes/Goals: Pt sets, maintains & shows weight loss goal & trend during rehab, Other additional outcomes/goals Intervention/Plan: Instruct on ideal BMI & set weight loss goal w/patient, Assist pt to ID & incorporate diet changes for weight loss by S9, Refer to Structured Weight Loss program as appropriate, Encourage goal of using 250- 300dcal per session for weight loss, Other additional plan/interventions 30 day Reassessments:: Progressing - Healthy Eating Habits Will attend diet classes:: Yes Outcomes/Goals:: Consume diet rich in vegs,fruits,whole grain/high fiber,fish,lean meat, Limit sat/trans fats,cholesterol & added salts & sugars, Other additional outcome/goals: Intervention/Plan:: Assess current eating habits, Other Additional plan/interventions 30-day Reassessments:: Progressing - Education Gave educational materials for:: Signs & symptoms of hypoglycemia, Signs & symptoms of hyperglycemia, Relate diabetes to coronary artery disease, Healthy eating Medical- 60-Day Assessment - Visit Date of Eval: 12/31/19 - Medication Compliance Preventative Medication(s):: Aspirin, GRETEL inhibitor, Clopidogrel/P2Y12 inhibit, Statin/lipid H/O mental health issues: depression, anxiety, or addiction?: No Believes medications are unnecessary or harmful?: No Has a concern about medication side effects?: No Expresses concern over the cost of medications?: No Outcomes/Goals: Verbalizes medications,desired effect & common side effects @ DC, Pt self-reports following medication regimen, Keeps card in wallet w/medications listed by DC, Other additional outcome/goals: Interventions/plans: Instruct on medication effects & side effects, Review medication list w/patient every two weeks, Instruct importance of taking meds as ordered & assist problem solving, Other additional 30-day Reassessments:: Progressing - Tobacco Use Tobacco Use: Non-smoker Do you use smokeless tobacco?: No - Hypertension Hypertension Diagnosis:: Hypertension ICD-10 I10 Resting Blood Pressure:: 120/60 [place] [employer] Hypertension Guidelines: [place] [employer] Hypertension Guidelines. Normal BP Less than 120/80. Elevated BP 120/80. Hypertension Stage 1: BP 130-139/80-89. Hypertesnion Stage 2: BP 140 or higher/90 or higher. Hypertension Crisis: BP higher than 180/120 Peak Exercise Blood Pressure:: 144/72 Outcomes/Goals: Able to verbalize/achieve optimal blood pressure <130/80, Incorporates diet changes & exercise for blood pressure control by DC, Other additional outcomes/goals Interventions/plan: Instruct on optimal blood pressure, hypertension & medications, Instruct on effects of sodium, alcohol, stress, exercise &hypertension, Other additional plan/interventions 30 day Reassessments:: Progressing - Tobacco Cessation Referral Smoking Cessation Referral:: No Individual Education/Counseling:: No Education Schedule Given:: Yes Psychosocial - 60-Day Assess - VIsit Date of Eval: 12/31/19 History of previous Mental disease:: No - Target Goals Target Goals: Assess presence or absence of depression. Using a valid screening tool, maximizes coping skills. Positive support system - Psychosocial Test Tool Used:: [employer] QOL Cardiac, PHQ-9 Questionnaire phq-9 Severity: Severity. 1-4 Minimal Depression. 5-9 Mild Depression. 10-14 Moderate Depression. 15-19 Moderately Sever Depression. 20-27 Severe Depression. Rule: - Referral to Behavioral Health PS - Interventions: Yes Attend Stress Management Classes, No Referral to Behavioral Health if PHQ-9 score >9:, No Referral to [facility], No Referral to Physician if PHQ-9 if score is 5-9: - Outcomes/Goals: See list Psychosocial Outcomes/Goals:: ID's personal stressors & 2 strategies to manage stress by discharge, Other Additional outcome/goals: - Intervention/Plan: See List Interventions/Plan:: Assess stressors,coping strategies & signs of derpression on admission, Instruct/assist pt to develop coping & personal stress Mgt strategies, Refer to Behavioral Health if appropriate, Refer to Physician if appropriate, Instruct patient to recognize signs & symptoms of depression, Instruct patient to recog, Other additional plan/intervention - 30-day Reassessments: 30 day Reassessments:: Progressing Patient Health Questionnaire 60-Day Re-eval Assessment 1. Little interest or pleasure in doing things: Not at all 2. Feeling down, depressed, or hopeless: Not at all 3. Trouble falling or staying asleep, or sleeping too much: Several days 4. Feeling tired or having little energy: Several days 5. Poor appetite or overeating: More than half the days 6. Feeling bad about yourself -- or that you are a failure or have let yourself or your family down: Not at all 7. Trouble concentrating on things, such as reading the newspaper or watching television: Not at all 8. Moving or speaking so slowly that other people could have noticed. Or the opposite - being so fidgety or restless that you have been moving around a lot more than usual: Not at all 9. Thoughts that you would be better off , or of hurting yourself in some way: Not at all How difficult have these problems made it for you to do your work, take care of things at home, or get along with other people?: Not difficult at all Total Score: 4 Self-Efficacy 60-Day Re-eval Assessment We would like to know how confident you are in doing certain activities. Please select your confidence level for:: Select your confidence level for the following using the scale 1-10 where 1 is not at all confident and 10 is totally confident. Your score is the average of all 6 responses. Fatigue: How confident are you that you can keep the fatigue caused by your disease from interfering with the things you want to do? Select Number: 8 Physical Discomfort or Pain: How confident are you that you can keep the physical discomfort or pain of your disease from interfering with the things you want to do? Select Number: 9 Emotional Distress: How confident are you that you can keep the emotional distress caused by your disease from interfering with the things you want to do? Select Number: 9 Other Symptoms or Health Problems: How confident are you that you can keep other symptoms or health problems from interfering with the things you want to do? Select Number: 8 Different Tasks and Activities: How confident are you that you can do the different tasks and activities needed to manage your health condition so as to reduce your need to see a doctor? Select Number: 9 Medication: How confident are you that you can do things other than just taking medication to reduce how much your illness affects your everyday life? Select Number: 9 Total Score:: 8
[2019-12-31 08:53] VITALS: BP 120/60; BP 144/72; BMI 40.1
== END 2020-01-08 23:59 ==
LOC: CR 15:15
PROVIDERS: PCP Family Medicine; Referring Provider Internal Medicine Cardiovascular Disease; Visit Provider Internal Medicine Cardiovascular Disease
DX: I25.10 Atherosclerotic heart disease of native coronary artery without angina pectoris (principal); Z95.5 Presence of coronary angioplasty implant and graft
CPT/HCPCS: 93798

== ENCOUNTER → 2020-02-04 | Outpatient (CLI) | payer MEDICARE, OTHER, SELFPAY ==
[2019-11-05 13:15] VITALS: BMI 40.4
[2020-01-28 10:27] VITALS: BMI 39.4
--- NOTE | 2020-02-04 14:00 | ECHOD_ITS ---
Reason For Study: CHF Procedure This was a 2D Doppler, Color Flow transthoracic echocardiogram. The study was technically difficult. Due to body habitus. Exam performed in department. Left Ventricle Normal LV size. Segmental dysfunction with preserved ejection fraction (see wall motion). The estimated ejection fraction is 55 %. There is evidence of diastolic dysfunction. Infero-Basal: Hypokinetic. Mid-Anterior : Hypokinetic. Mid-Lateral : Hypokinetic. Mid-Posterior: Hypokinetic. Mid- Inferior: Hypokinetic. Anterior Nikolai : Hypokinetic. Inferior Nikolai : Hypokinetic. Lateral Nikolai : Hypokinetic. Right Ventricle Normal RV size. Normal systolic function. Atria The left atrium is mildly enlarged. Normal right atrium. No doppler evidence for ASD. Mitral Valve There is moderate mitral annular calcification. Extension of the mitral annular calcification onto the posterior mitral valve leaflet. Trivial mitral valve insufficiency. Tricuspid Valve Normal tricuspid valve. Trivial tricuspid valve insufficiency. Right ventricular systolic pressure estimated to be 30 mmHg. Aortic Valve Trisinus/trileaflet aortic valve. Mild focal aortic valve thickening. Pulmonic Valve The pulmonic valve is not well visualized. Great Vessels Normal sized aortic root. Pericardium/Pleural Small pericardial effusion. There are no echocardiographic indications of cardiac tamponade. MMode/2D Measurements & Calculations LVIDd: 5.5 cm IVSd: 1.4 cm Ao root diam: 3.4 cm LVIDs: 4.4 cm LVPWd: 1.2 cm RVDd: 3.1 cm FS: 20.0 % LAV(MOD-bp): 98.0 ml LA A4 area: 27.3 cm2 LA dimension(2D): 4.4 cm LAV(MOD-bp) Indexed: 42.9 ml/m2 LAV(MOD-sp2): 91.1 ml LAV(MOD-sp4): 95.3 ml RA A4 area: 15.7 cm2 Time Measurements MV dec time: 0.21 sec Doppler Measurements & Calculations MV E max david: 93.1 cm/sec Lat Peak E' David: 3.9 cm/sec Med Peak E' David: 3.5 cm/sec MV A max david: 99.8 cm/sec E/E' lat: 24.0 E/E' med: 26.4 MV E/A: 0.93 Ao V2 max: 114.2 cm/sec LV V1 max: 85.8 cm/sec PA V2 max: 65.8 cm/sec Ao max P.2 mmHg LV V1 max P.9 mmHg TR max david: 259.3 cm/sec TR max P.9 mmHg Interpretation Summary The study was technically difficult. Segmental dysfunction with preserved ejection fraction (see wall motion). The estimated ejection fraction is 55 %. The left atrium is mildly enlarged. There is moderate mitral annular calcification. Extension of the mitral annular calcification onto the posterior mitral valve leaflet. Trivial mitral valve insufficiency. Trivial tricuspid valve insufficiency. Mild focal aortic valve thickening. Small pericardial effusion. There are no echocardiographic indications of cardiac tamponade. Right ventricular systolic pressure estimated to be 30 mmHg. There is evidence of diastolic dysfunction. Ordering Physician: Luciano Nunez Referring Physician: Franklin Nguyen Performed By: Marisol Ireland, SARAH, RVT
== END | disposition home or self-care (01) ==
LOC: CVS 13:47
PROVIDERS: PCP Family Medicine; Referring Provider Nurse Practitioner Family; Visit Provider Nurse Practitioner Family
DX: I25.10 Atherosclerotic heart disease of native coronary artery without angina pectoris (principal); I25.5 Ischemic cardiomyopathy; E78.5 Hyperlipidemia, unspecified; I10 Essential (primary) hypertension; Z95.5 Presence of coronary angioplasty implant and graft
CPT/HCPCS: 93306

== ENCOUNTER 2020-03-07 15:15 | Outpatient (RCR) | payer MEDICARE, OTHER, SELFPAY ==
[2019-11-05 13:15] VITALS: BMI 40.4
[2020-01-09 00:43] VITALS: BP 120/60; BP 144/72
--- NOTE | 2020-01-11 08:12 | PCM.CR.ITP ---
Exercise - Initial Assessment - Visit Date of Eval: 01/11/20 - With obvious neccessary interupption in the delivery of CR, the patient's program is on hold due to the coronovirus. The CR program has been closed for patient safety reasons.
[2020-01-28 10:27] VITALS: BMI 39.4
--- NOTE | 2020-02-08 14:32 | PCM.CR.ITP ---
Diagnosis - General Information Admitting Diagnosis: PCI with stent Personal Learning Style:: Audio/Visual, Written Barriers to Learning: Hearing Impairment Stage of change r/t lifestyle modifications:: Action Gave educational material for:: Treating Heart Disease, Emotions & Heart Disease, Stress Management & Relaxation, Sleep Disorders & Heart Disease, How The Heart Works, What it means to have Heart Disease, How Coronary Artery Disease is Diagnosed, Heart Procedures, What Heart Medications Do, Risk Factors & Modifications, Living an Active Life, Nutrition - Education/Goals Cardiac Rehabilitation Goals: 1. Maintain the individual as the primary focus of care. 2. To improve the patient's quality of life. 3. Identification of cardiac risk factors and provide cardiac risk factor management. 4. Enhance the psychosocial status of the patient. 5. Reconditioning enough to allow the patient to resume customary activities. 6. Control symptoms of cardiac disease Scale for measuring improvement of personal goals: Enter appropriate number in Comments. 2 = Unchanged. 3 = Slightly Better. 4 = Moderate Improvement. 5 = Met my Goal - Diagnosis & Disease Process Outcomes/Goals: Pt IDs own risk factors & lifestyle modifications by Session 10, Verbalizes symptoms of angina & response by session 3., Pt independently manages, Other Additional Outcomes/Goals: Plan/Interventions: Assist Pt to ID & engage in lifestyle modification to reduce CVD risk, Instruct on individual risk factors, Review symptoms of angina & emergency actions, Review secondary diagnosis & identify educational needs., Other see comment 30 day Reassessments:: Progressing 30 day Reassessments:: Progressing 30 day Reassessments:: Progressing 30 day Reassessments:: Progressing - Safety Referral to Physical Therapy: No Referral to [facility] Case Management: No Fall Risk Assessed:: Yes Assistive Devices:: Walker Exercise - 90-day Assessment - Visit Date of Eval: 02/08/20 Session #:: 22 Comments:: Pt was on hold for COVID 19 precaution. Pt is now resuming rehab. - Physician Prescribed Exercise Modalities: NuStep, SciFit Frequency: 3x/week for 12 weeks [36 sessions] Intensity: 60-80% of age predicted maximum heart rate reserve Current METSs:: 3.5 Target Heart Rate:: 94-122 Current RPE:: 11-14 Maximum Excercise HR:: 109 Resting Blood Pressure: 120/60 Maximum Exercise Blood Pressure: 144/72 EKG Type: SR 1st degree block - Outcomes & Goals Goals:: Verbalizes understanding of THR, RPE & goal METS by session 6, Documents in home exercise log/reports 30 min aerobic 5 day/wk by DC, Demonstrates accurate pulse taking by DC, Other additional outcome/goals: see below - Intervention & Plan Exercise Program Goals: Instruct on personal THR & RPE, Instruct on MET level & personal MET goal, Show patient to take own pulse /validate performance until accurate, Instruct on home exercise, Other additional plan/int - 30-day Reassessments 30 day Reassessments:: Progressing - Physical Activity Home Exercise Physical Activity - Home Exercise: Safe Exercise, Warm-up, Self-monitoring, Cool-Down, Home Exercise > 30 min Daily, Sitting Time <3 hours/daily - Outcomes & Goals Outcomes/Goals: Demonstrates correct Warm-up/exercise Cool-Down (S3) if = 2.5 METs, Verbalizes symptoms of exercise intolerance by Session 3 (S3), Demonstrate safe equipment use (S3) & follows exercise prescrition (6), Other: See below - Intervention & Plan Plan/Intervention: Instruct warm-up & cool-down if exercising at > 2 METs, Instruct on symptoms of exercise intolerance & actions to take, Instruct & monitor on saf, Assess intial functional capacity & safety risk, Other See below - 30-day Reassessments 30 day Reassessments:: Progressing Nutrition - 90-Day Assessment - Program Goals Nutrition Program Goals: LDL <100 optimal. 100 - 129 Near optimal. 130 - 159 Borderline High. 160 - 189 High. Total Cholesterol <200 desirable. 200 - 239 Borderline High. >/= 240 High. HDL < 40 Low >/=60 High. Triglycerides <150 desirable. <199 optimal. VlDL 5 - 40. HgbA1C <7%. BMI <25 Patient has diagnosis of Hyperlipidemia (ICD E78)?: Yes - Visit Date of Assessment:: 02/08/20 Session #:: 22 - Cholesterol/Lipids Determine presence & major risk factors that modify LDL goal: Hypertension or hypertensive medication, Low HDL cholesterol <40 mg/dL*, Family history of premature CHD in Male < 55 years: female <65 yearsFa, Age men > 45 years; women >/= 55 years Outcomes/Goals: Pt IDs own risk factors & lifestyle modifications by Session 10, Verbalizes symptoms of angina & response by session 3., Pt independently manages, Other Additional Outcomes/Goals: Intervention/Plan: Advocate for lipid panel cholesterol medication if applicable, Instruct on personal lipid levels & lipid goals/NCEP guidelines, Instruct on cholesterol, Other additional plan/int Referral to dietitian:: Yes 30-day Reassessments:: Progressing - Diabetes (Other Core Measures) Diabetes Type: 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 Fasting blood glucose:: 166 Non-Insulin Dependent?: Yes Do you monitor your blood sugar at home?: Yes Referral to Diabetic Clinic:: Yes Outcomes/Goals:: Able to state symptoms of, Able to state, Able to state, Other additional Intervention/Plan:: Instruct on, Refer to, Instruct on, Other 30-day Reassessments:: Progressing - Weight Mgt (Other Care) Height: 5 ft 8 in Weight:: 122.243 kg BMI: 40.9 Diagnosis Overweight/Obesity BMI> 30% ICD-10 E66: Yes Diagnosis High BMI/Morbid Obesity BMI> 35% ICD-10 Z68: Yes Outcomes/Goals: Pt sets, maintains & shows weight loss goal & trend during rehab, Other additional outcomes/goals 30 day Reassessments:: Progressing - Healthy Eating Habits Will attend diet classes:: Yes Outcomes/Goals:: Consume diet rich in vegs,fruits,whole grain/high fiber,fish,lean meat, Limit sat/trans fats,cholesterol & added salts & sugars, Other additional outcome/goals: Intervention/Plan:: Assess current eating habits, Other Additional plan/interventions 30-day Reassessments:: Progressing - Education Gave educational materials for:: Signs & symptoms of hypoglycemia, Signs & symptoms of hyperglycemia, Relate diabetes to coronary artery disease, Healthy eating Medical- 90-Day Assessment - Visit Date of Eval: 02/08/20 Session #:: 22 - Medication Compliance Preventative Medication(s):: Aspirin, GRETEL inhibitor, Clopidogrel/P2Y12 inhibit, Statin/lipid, Beta julian H/O mental health issues: depression, anxiety, or addiction?: No Doesn?t believe in the benefits of treatment?: No Believes medications are unnecessary or harmful?: No Has a concern about medication side effects?: No Expresses concern over the cost of medications?: No Outcomes/Goals: Verbalizes medications,desired effect & common side effects @ DC, Pt self-reports following medication regimen, Keeps card in wallet w/medications listed by DC, Other additional outcome/goals: 30-day Reassessments:: Progressing - Tobacco Use Tobacco Use: Non-smoker - Hypertension Hypertension Diagnosis:: Hypertension ICD-10 I10 Resting Blood Pressure:: 120/60 [place] [employer] Hypertension Guidelines: [place] [employer] Hypertension Guidelines. Normal BP Less than 120/80. Elevated BP 120/80. Hypertension Stage 1: BP 130-139/80-89. Hypertesnion Stage 2: BP 140 or higher/90 or higher. Hypertension Crisis: BP higher than 180/120 Peak Exercise Blood Pressure:: 144/72 Outcomes/Goals: Able to verbalize/achieve optimal blood pressure <130/80, Incorporates diet changes & exercise for blood pressure control by DC, Other additional outcomes/goals Interventions/plan: Instruct on optimal blood pressure, hypertension & medications, Instruct on effects of sodium, alcohol, stress, exercise &hypertension, Other additional plan/interventions 30 day Reassessments:: Progressing - Tobacco Cessation Referral Smoking Cessation Referral:: No Individual Education/Counseling:: No Education Schedule Given:: Yes Psychosocial - 90-Day Assess - VIsit Date of Eval: 02/08/20 Session #:: 22 History of previous Mental disease:: No - Target Goals Target Goals: Assess presence or absence of depression. Using a valid screening tool, maximizes coping skills. Positive support system - Psychosocial Test Tool Used:: [employer] QOL Cardiac, PHQ-9 Questionnaire phq-9 Severity: Severity. 1-4 Minimal Depression. 5-9 Mild Depression. 10-14 Moderate Depression. 15-19 Moderately Sever Depression. 20-27 Severe Depression. Rule: - Referral to Behavioral Health PS - Interventions: Yes Attend Stress Management Classes, No Referral to Behavioral Health if PHQ-9 score >9:, No Referral to [facility], No Referral to Physician if PHQ-9 if score is 5-9: - Outcomes/Goals: See list Psychosocial Outcomes/Goals:: ID's personal stressors & 2 strategies to manage stress by discharge, Other Additional outcome/goals: - Intervention/Plan: See List Interventions/Plan:: Assess stressors,coping strategies & signs of derpression on admission, Instruct/assist pt to develop coping & personal stress Mgt strategies, Refer to Behavioral Health if appropriate, Refer to Physician if appropriate, Instruct patient to recognize signs & symptoms of depression, Instruct patient to recog, Other additional plan/intervention - 30-day Reassessments: 30 day Reassessments:: Progressing Patient Health Questionnaire 90-Day Re-eval Assessment 1. Little interest or pleasure in doing things: Not at all 2. Feeling down, depressed, or hopeless: Not at all 3. Trouble falling or staying asleep, or sleeping too much: Several days 4. Feeling tired or having little energy: Several days 5. Poor appetite or overeating: More than half the days 6. Feeling bad about yourself -- or that you are a failure or have let yourself or your family down: Not at all 7. Trouble concentrating on things, such as reading the newspaper or watching television: Not at all 8. Moving or speaking so slowly that other people could have noticed. Or the opposite - being so fidgety or restless that you have been moving around a lot more than usual: Not at all 9. Thoughts that you would be better off , or of hurting yourself in some way: Not at all Total Score: 4 Self-Efficacy 90-Day Re-eval Assessment We would like to know how confident you are in doing certain activities. Please select your confidence level for:: Select your confidence level for the following using the scale 1-10 where 1 is not at all confident and 10 is totally confident. Your score is the average of all 6 responses. Fatigue: How confident are you that you can keep the fatigue caused by your disease from interfering with the things you want to do? Select Number: 8 Physical Discomfort or Pain: How confident are you that you can keep the physical discomfort or pain of your disease from interfering with the things you want to do? Select Number: 9 Emotional Distress: How confident are you that you can keep the emotional distress caused by your disease from interfering with the things you want to do? Select Number: 9 Other Symptoms or Health Problems: How confident are you that you can keep other symptoms or health problems from interfering with the things you want to do? Select Number: 8 Different Tasks and Activities: How confident are you that you can do the different tasks and activities needed to manage your health condition so as to reduce your need to see a doctor? Select Number: 9 Medication: How confident are you that you can do things other than just taking medication to reduce how much your illness affects your everyday life? Select Number: 9 Total Score:: 8
[2020-02-08 14:41] VITALS: BP 120/60; BP 144/72; BMI 40.9
--- NOTE | 2020-02-27 13:32 | PCM.CR.ITP ---
Exercise - 90-day Assessment - Visit Date of Eval: 02/27/20 Session #:: 28 Comments:: Suspension of Cardiac Rehab services resulted from 01/10/2020 through 02/11/2020 as a result of Covid-19. Closure of the program was under the [place] [facility] [employer] [facility] and [place] Gov. [place]'s Orders. If the cardiac rehab program exceeds the 36-week window (this should be rare) allowed for completion of the maximum 36-sessions, a modifier KX will be necessary to indicae continued medical necessity in our estimation. - Physician Prescribed Exercise Modalities: NuStep, SciFit Frequency: 3x/week for 12 weeks [36 sessions] Intensity: 60-80% of age predicted maximum heart rate reserve Current METSs:: 3.5 Target Heart Rate:: 94-122 Current RPE:: 13 Maximum Excercise HR:: 100 Resting Blood Pressure: 126/70 Maximum Exercise Blood Pressure: 136/68 EKG Type: NSR to sinus tachycardiac without ectopy. - Outcomes & Goals Goals:: Verbalizes understanding of THR, RPE & goal METS by session 6, Documents in home exercise log/reports 30 min aerobic 5 day/wk by DC, Demonstrates accurate pulse taking by DC - Intervention & Plan Exercise Program Goals: Instruct on personal THR & RPE, Instruct on MET level & personal MET goal, Show patient to take own pulse /validate performance until accurate, Instruct on home exercise - 30-day Reassessments 30 day Reassessments:: Progressing - Physical Activity Home Exercise Physical Activity - Home Exercise: Safe Exercise, Warm-up, Self-monitoring, Cool-Down, Home Exercise > 30 min Daily, Sitting Time <3 hours/daily - Outcomes & Goals Outcomes/Goals: Demonstrates correct Warm-up/exercise Cool-Down (S3) if = 2.5 METs, Verbalizes symptoms of exercise intolerance by Session 3 (S3), Demonstrate safe equipment use (S3) & follows exercise prescrition (6) - Intervention & Plan Plan/Intervention: Instruct warm-up & cool-down if exercising at > 2 METs, Instruct on symptoms of exercise intolerance & actions to take, Instruct & monitor on saf, Assess intial functional capacity & safety risk - 30-day Reassessments 30 day Reassessments:: Progressing Nutrition - 90-Day Assessment - Program Goals Nutrition Program Goals: LDL <100 optimal. 100 - 129 Near optimal. 130 - 159 Borderline High. 160 - 189 High. Total Cholesterol <200 desirable. 200 - 239 Borderline High. >/= 240 High. HDL < 40 Low >/=60 High. Triglycerides <150 desirable. <199 optimal. VlDL 5 - 40. HgbA1C <7%. BMI <25 Patient has diagnosis of Hyperlipidemia (ICD E78)?: Yes - Visit Date of Assessment:: 02/27/20 Session #:: 28 - Cholesterol/Lipids Determine presence & major risk factors that modify LDL goal: Hypertension or hypertensive medication, Age men > 45 years; women >/= 55 years Outcomes/Goals: Pt IDs own risk factors & lifestyle modifications by Session 10, Verbalizes symptoms of angina & response by session 3., Pt independently manages Intervention/Plan: Instruct on personal lipid levels & lipid goals/NCEP guidelines, Instruct on cholesterol Referral to dietitian:: No 30-day Reassessments:: Progressing - Diabetes (Other Core Measures) Diabetes Type: 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 Fasting blood glucose:: 238 - FSBS 166-200 Pre/ 101-211 Post Hgb A1C (4.2 - 6.3): 8.5 Insulin dependent injection/pump?: Yes Non-Insulin Dependent?: Yes Do you monitor your blood sugar at home?: Yes Referral to Diabetic Clinic:: No Outcomes/Goals:: Able to state symptoms of, Able to state, Able to state 30-day Reassessments:: Progressing - Weight Mgt (Other Care) Not Applicable: No Height: 5 ft 8 in Weight:: 260 lb 8 oz BMI: 39.6 Diagnosis Overweight/Obesity BMI> 30% ICD-10 E66: Yes Diagnosis High BMI/Morbid Obesity BMI> 35% ICD-10 Z68: Yes Outcomes/Goals: Pt sets, maintains & shows weight loss goal & trend during rehab Intervention/Plan: Instruct on ideal BMI & set weight loss goal w/patient, Assist pt to ID & incorporate diet changes for weight loss by S9, Encourage goal of using 250-300dcal per session for weight loss 30 day Reassessments:: Progressing - Healthy Eating Habits Will attend diet classes:: Yes Outcomes/Goals:: Consume diet rich in vegs,fruits,whole grain/high fiber,fish,lean meat, Limit sat/trans fats,cholesterol & added salts & sugars Intervention/Plan:: Assess current eating habits 30-day Reassessments:: Progressing - Education Gave educational materials for:: Signs & symptoms of hypoglycemia, Signs & symptoms of hyperglycemia, Relate diabetes to coronary artery disease, Healthy eating Medical- 90-Day Assessment - Visit Date of Eval: 02/27/20 Session #:: 28 - Medication Compliance Preventative Medication(s):: Aspirin, Clopidogrel/P2Y12 inhibit, Statin/lipid, Beta julian H/O mental health issues: depression, anxiety, or addiction?: No Doesn?t believe in the benefits of treatment?: No Believes medications are unnecessary or harmful?: No Has a concern about medication side effects?: No Expresses concern over the cost of medications?: No Outcomes/Goals: Verbalizes medications,desired effect & common side effects @ DC, Pt self-reports following medication regimen, Keeps card in wallet w/medications listed by DC Interventions/plans: Instruct on medication effects & side effects, Review medication list w/patient every two weeks, Instruct importance of taking meds as ordered & assist problem solving 30-day Reassessments:: Progressing - Tobacco Use Tobacco Use: Non-smoker - Hypertension Hypertension Diagnosis:: Hypertension ICD-10 I10 Resting Blood Pressure:: 126/70 [place] [employer] Hypertension Guidelines: [place] [employer] Hypertension Guidelines. Normal BP Less than 120/80. Elevated BP 120/80. Hypertension Stage 1: BP 130-139/80-89. Hypertesnion Stage 2: BP 140 or higher/90 or higher. Hypertension Crisis: BP higher than 180/120 Peak Exercise Blood Pressure:: 136/68 Outcomes/Goals: Able to verbalize/achieve optimal blood pressure <130/80, Incorporates diet changes & exercise for blood pressure control by DC Interventions/plan: Instruct on optimal blood pressure, hypertension & medications, Instruct on effects of sodium, alcohol, stress, exercise &hypertension 30 day Reassessments:: Progressing - Tobacco Cessation Referral Smoking Cessation Referral:: No Individual Education/Counseling:: No Education Schedule Given:: Yes Psychosocial - 90-Day Assess - VIsit Date of Eval: 02/27/20 Session #:: 28 Not Applicable: No History of previous Mental disease:: No History of Emotional Disorders: Anxious, Alzheimer's Disease, Depression, Dementia, H/O Mental disease, Irrational Behavior, Suicidal Tendencies - Target Goals Target Goals: Assess presence or absence of depression. Using a valid screening tool, maximizes coping skills. Positive support system - Psychosocial Test Tool Used:: Caleb De La [employer]re QOL Cardiac, PHQ-9 Questionnaire phq-9 Severity: Severity. 1-4 Minimal Depression. 5-9 Mild Depression. 10-14 Moderate Depression. 15-19 Moderately Sever Depression. 20-27 Severe Depression. Rule: - Referral to Behavioral Health PS - Interventions: Yes Attend Stress Management Classes, No Referral to Behavioral Health if PHQ-9 score >9:, No Referral to [facility], No Referral to Physician if PHQ-9 if score is 5-9: - Outcomes/Goals: See list Psychosocial Outcomes/Goals:: ID's personal stressors & 2 strategies to manage stress by discharge - Intervention/Plan: See List Interventions/Plan:: Assess stressors,coping strategies & signs of derpression on admission, Instruct/assist pt to develop coping & personal stress Mgt strategies, Instruct patient to recognize signs & symptoms of depression, Instruct patient to recog - 30-day Reassessments: 30 day Reassessments:: Progressing Patient Health Questionnaire 90-Day Re-eval Assessment 1. Little interest or pleasure in doing things: Not at all 2. Feeling down, depressed, or hopeless: Not at all 3. Trouble falling or staying asleep, or sleeping too much: Several days 4. Feeling tired or having little energy: Several days 5. Poor appetite or overeating: Not at all 6. Feeling bad about yourself -- or that you are a failure or have let yourself or your family down: Not at all 7. Trouble concentrating on things, such as reading the newspaper or watching television: Not at all 8. Moving or speaking so slowly that other people could have noticed. Or the opposite - being so fidgety or restless that you have been moving around a lot more than usual: Not at all 9. Thoughts that you would be better off , or of hurting yourself in some way: Not at all How difficult have these problems made it for you to do your work, take care of things at home, or get along with other people?: Not difficult at all Total Score: 2 Self-Efficacy 90-Day Re-eval Assessment We would like to know how confident you are in doing certain activities. Please select your confidence level for:: Select your confidence level for the following using the scale 1-10 where 1 is not at all confident and 10 is totally confident. Your score is the average of all 6 responses. Fatigue: How confident are you that you can keep the fatigue caused by your disease from interfering with the things you want to do? Select Number: 9 Physical Discomfort or Pain: How confident are you that you can keep the physical discomfort or pain of your disease from interfering with the things you want to do? Select Number: 10 Emotional Distress: How confident are you that you can keep the emotional distress caused by your disease from interfering with the things you want to do? Select Number: 10 Other Symptoms or Health Problems: How confident are you that you can keep other symptoms or health problems from interfering with the things you want to do? Select Number: 10 Different Tasks and Activities: How confident are you that you can do the different tasks and activities needed to manage your health condition so as to reduce your need to see a doctor? Select Number: 9 Medication: How confident are you that you can do things other than just taking medication to reduce how much your illness affects your everyday life? Select Number: 10 Total Score:: 9
[2020-02-27 13:39] VITALS: BP 126/70; BP 136/68; BMI 39.6
== END 2020-03-09 23:59 ==
LOC: CR 15:15
PROVIDERS: PCP Family Medicine; Referring Provider Internal Medicine Cardiovascular Disease; Visit Provider Internal Medicine Cardiovascular Disease
DX: I25.10 Atherosclerotic heart disease of native coronary artery without angina pectoris (principal); Z95.5 Presence of coronary angioplasty implant and graft
CPT/HCPCS: 93798

== ENCOUNTER 2020-03-14 15:15 | Outpatient (RCR) | payer MEDICARE, OTHER, SELFPAY ==
[2020-01-28 10:27] VITALS: BMI 39.4
[2020-02-27 13:39] VITALS: BMI 39.6
[2020-03-10 00:16] VITALS: BP 126/70; BP 136/68
== END 2020-04-08 23:59 ==
LOC: CR 15:15
PROVIDERS: PCP Family Medicine; Referring Provider Internal Medicine Cardiovascular Disease; Visit Provider Internal Medicine Cardiovascular Disease
DX: I25.10 Atherosclerotic heart disease of native coronary artery without angina pectoris (principal); Z95.5 Presence of coronary angioplasty implant and graft
CPT/HCPCS: 93798

== ENCOUNTER 2020-03-19 12:55 | Emergency (ER) | payer MEDICARE, OTHER, SELFPAY ==
[2020-01-28 10:27] VITALS: BMI 39.4
[2020-02-27 13:39] VITALS: BMI 39.6
[2020-03-19 12:57] VITALS: BP 136/68; PULSE 100; RESP 20; TEMP 36.6; O2SAT 96; BMI 39.9
[2020-03-19] MEDS: Diphth,Pertuss(Acell),Tet Vac 0.5 ML Vial IM (14:23)
--- NOTE | 2020-03-19 15:52 | ED.DCSUM_ITS ---
History of Present Illness Chief Complaint: Laceration Informant: Patient Onset: Today Mechanism/Context: Blunt Injury, Incised Quality of Pain: - - Has no discomfort Location: Volar surface left index finger at the MCP joint Current Severity: Not complain of any pain. Maximum Severity: Mild Worsened by: Palpation Relieved by: Not applicable Associated Symptoms: Negative for: Parasthesias, Weakness, Loss of function Narrative: Presents with laceration volar surface left hand at the crease of the MCP joint left index finger volar side. 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 He is diabetic. Tetanus uncertain. He has no other complaints. He states he caught it on a piece of metal back of the truck when he was jumping off. He has no other complaints and no other injuries. Tetanus Immunization: Unknown Prior similar symptoms: No Recent Illness/Hospitalization: No - Past Medical History (1) NSTEMI (non-ST elevated myocardial infarction) Status: Acute (2) Arteriosclerotic cardiovascular disease Status: Chronic Comment: Left Ventricular Ejection Fraction: by LV Gram 30%; Anterior Hypokinesis. Inferior Basal Hypokinesis - Severe. Inferior Mid Hypokinesis. Apical Hypokinesis. Elevated Left Ventricular End Diastolic Pressure LVEDP: 23 mmHg. LEFT MAIN: Angiographically normal. LEFT ANTERIOR DESCENDING ARTERY: PROX LAD: Mild calcification, eccentric: 25 % Stenosis; MID LAD: pre DX2: hazy: 50 % Stenosis, Mild luminal irregularities; DIAGONAL 1: Proximal - small caliber vesseld: diffuse: 85 % Stenosis DIAGONAL 2: Ostial - 50 % Stenosis; CIRCUMFLEX ARTERY: PROX CIRC: is occluded. RIGHT CORONARY ARTERY: PROX RCA: 25 - 50 % Stenosis; MID RCA: Mild luminal irregularities DISTAL RCA: Mild luminal irregularities; RT PDA: Proximal - Mild luminal irregularities; COLLATERAL FLOW: Collateral flow from Right to Left Per LHC per PFM 10/20/2019 (3) DM type 2 (diabetes mellitus, type 2) Status: Chronic (4) Hyperlipidemia Status: Chronic (5) Hypertension Status: Chronic (6) Obesity Status: Chronic Past Medical History - Allergies and Home Meds Allergies/Adverse Reactions: Allergies No Known Allergies Allergy (Verified 03/19/20 12:59) Primary Care Physician: Paulo Nguyen MD [Primary Care Provider] - 10 Day for suture removal Prior records reviewed: Yes Surgical History: noncontributory, total knee arthroplasty - right knee Lives: Alone Smoking Status: Former smoker Alcohol: None Drugs: None - Family History Maternal Family History: Reports: Diabetes Paternal Family History: Reports: Diabetes, Heart Disease, Hypertension Review of Systems General: Denies: Chills, Fever, Malaise Gastrointestinal: Denies: Nausea, Vomiting Skin: Reports: Wounds. Denies: Rash, Abscess, Abrasions Neurological: Denies: Headache, Weakness, Parasthesia, Numbness, -, - Endocrine: Denies: Polyuria, Polydipsia Hematologic: Denies: Easy bruising, Easy bleeding Allergy: Denies: Uticaria, Swelling of the mouth Physical Exam Vital Signs/Narrative: Vital Signs Temp Pulse Resp BP Pulse Ox 03/19/20 12:57 97.8 F 100 20 H 136/68 H 96 Inital Vital Signs reviewed: Yes General: Well nourished, Well developed, Obese Head: Normocephalic, Atraumatic Eyes: Perrl, EOMI. Negative for: Pale conjunctiva, Scleral icterus Cardiovascular: Regular rate, Regular rhythm Respiratory: No distress Extremeties: The laceration volar side left index finger MCP joint. The flexor digitorum superficialis and flexor digitorum profundus are functionally intact. Sensation is intact. Cap refill is less than 2 seconds. There is no other in jury to the hand or digits left upper extremity. Skin: Normal color, No rash, Trauma. Negative for: Cyanosis, Diaphoresis, Jaundice, No Trauma Neurological: Alert, Oriented x3, Cranial nerves II-XII grossly intact, Normal Strength, Normal Sensation, Normal DTR, - - Median, radial and ulnar nerve function intact. - Glascow Coma Scale Eye Opening: Spontaneous Motor: Obeys Commands Verbal: Oriented Coma Scale Total: 15 Procedures - Lacerations No standard instances Length: 0.98 in Depth: Sub Q Shape: Flap Prep: Ivory Laceration Repair: Lidocaine, Local Irrigated (ml): 200 Number of Sutures/[place]: 5 Suture Information: Ethilon, Simple, 5-0 ED Disposition - Plan for ED Patient: Disposition: Home or Assisted Living Diagnosis: Laceration of left index finger w/o foreign body w/o damage to nail Instructions: ED Laceration Hand Referrals: Paulo Nguyen MD [Primary Care Provider] - 10 Day for suture removal
== END 2020-03-19 16:24 | disposition home or self-care (01) ==
PROVIDERS: Emergency Provider Emergency Medicine; PCP Family Medicine
DX: S61.211A Laceration without foreign body of left index finger without damage to nail, initial encounter (principal); I25.2 Old myocardial infarction; I25.10 Atherosclerotic heart disease of native coronary artery without angina pectoris; E11.9 Type 2 diabetes mellitus without complications; E78.5 Hyperlipidemia, unspecified; I10 Essential (primary) hypertension; E66.9 Obesity, unspecified; Z87.891 Personal history of nicotine dependence; Z79.82 Long term (current) use of aspirin; Z79.4 Long term (current) use of insulin; Z79.899 Other long term (current) drug therapy; W26.8XXA Contact with other sharp object(s), not elsewhere classified, initial encounter; Y93.89 Activity, other specified; Y92.008 Other place in unspecified non-institutional (private) residence as the place of occurrence of the external cause; Y99.8 Other external cause status
CPT/HCPCS: 12001; 90471; 90715; 99285

== ENCOUNTER → 2020-07-15 | Outpatient (CLI) | payer MEDICARE, OTHER, SELFPAY ==
[2020-02-27 13:39] VITALS: BMI 39.6
[2020-07-02 14:35] VITALS: BMI 41.2
--- NOTE | 2020-07-15 08:06 | STRESSREP_ITS ---
Stress Test Report Date: 07-15-2020 Procedure: Pharmacologic stress nuclear imaging study Indications: Shortness of breath/dyspnea on exertion; CAD; status post PCI Consent: Per the patient Procedure: The patient underwent pharmacologic (Regadenoson) evaluation with a peak heart rate of 86 beats per minute (60%predicted maximal heart rate) and a peak blood pressure of 138/74 mmHg. The baseline ECG demonstrated sinus rhythm. The peak pharmacologic ECG demonstrated no obvious ECG changes. There were no cardiac dysrhythmias pretest, during pharmacologic infusion, or recovery. There was no complaint of chest discomfort during pharmacologic infusion or recovery. The examination was discontinued secondary to completion of protocol. Impression: 1. Pharmacologic (Regadenoson) evaluation 2. Peak pharmacologic ECG with no obvious ECG changes. 3. There were no cardiac dysrhythmias pretest, during pharmacologic infusion, or recovery. 4. Nuclear images pending Myocardial perfusion imaging study: Technique: The patient was injected with 15.0 millicuries of technetium 99m Cardiolite and subsequently rest SPECT Cardiolite nuclear imaging was obtained in the horizontal long, vertical long, and short axis views. The patient underwent pharmacologic (Regadenoson) evaluation with a peak heart rate of 86 beats per minute (60% percent predicted maximal heart rate) and a peak blood pressure of 138/74 mmHg. The patient was injected with 43.0 millicuries of technetium 99m Cardiolite and subsequently stress SPECT Cardiolite nuclear imaging was obtained in the horizontal long, vertical long, and short axis views. A gated Cardiolite study at peak stress was obtained. Interpretation: Rest and stress SPECT Cardiolite nuclear imaging status post realignment, normalization, and attenuation correction demonstrate the appearance of diminished to absence of myocardial perfusion/tracer uptake in the basal to distal inferior lateral and inferior apical segments at both rest and stress and status post stress the notation of an area of mild decreased tracer uptake in portions of the mid anterior segments. There is diminished end systolic thickening and brightening in the aforementioned areas-inferolateral. The gated Cardiolite study demonstrates diminished myocardial thickening and inward wall motion in the aforementioned areas-inferolateral. The reported LVEF is 38%. Impression: 1. Rest and stress SPECT Cardiolite nuclear imaging demonstrate myocardial perfusion changes compatible with an area of previous myocardial injury/i nfarction involving portions of the inferolateral and inferoapical segments with post-rest myocardial perfusion changes suggesting an area compatible with mild stress-induced myocardial ischemia in portions of the mid anterior segments. 2. The gated Cardiolite study reports an LVEF of 38%. This note was generated with [employer] software. It may contain incorrect words, spelling, and punctuation that were not noted in checking the note before signing.
== END | disposition home or self-care (01) ==
PROVIDERS: PCP Family Medicine; Referring Provider Internal Medicine Cardiovascular Disease; Visit Provider Internal Medicine Cardiovascular Disease
DX: R06.09 Other forms of dyspnea (principal); Z95.5 Presence of coronary angioplasty implant and graft
CPT/HCPCS: 78452; 93017; A9500; A4216; J2785

== ENCOUNTER 2020-07-25 08:46 | Day surgery (SDC) | payer MEDICARE, OTHER, SELFPAY ==
[2020-02-27 13:39] VITALS: BMI 39.6
[2020-07-02 14:35] VITALS: BMI 41.2
[2020-07-21 13:40] VITALS: BMI 39.9
--- NOTE | 2020-07-21 14:07 | RAD_ITS ---
STUDY: X-RAY CHEST REASON FOR EXAM: Male, 75 years old. Dyspnea on exertion TECHNIQUE: PA and lateral views of the chest. COMPARISON: 10/19/2019 FINDINGS: There are interstitial changes of the lungs. There is no demonstrated pleural abnormality. Normal size heart. Normal mediastinum and gio. Normal visualized pulmonary arteries. There is atherosclerotic calcification of the aortic arch with tortuosity. There are diffuse degenerative changes of the visualized thoracic spine. There is degenerative osteoarthritis of the bilateral shoulders. There is no demonstrated abnormality of the visualized soft tissue structures of the upper abdomen. RAD/Chest PA and Lateral IMPRESSION: Degenerative changes, as described above. No demonstrated acute cardiopulmonary process. Electronically Signed: Raleigh Lopes MD at 18:22 EDT , Service support ,
[2020-07-21 16:45] LABS: Hemoglobin 14.5 g/dL (13.0-16.5); Mean Corpuscular Hgb 32.3 pg (27.0-32.0); Mean Platelet Vol. 10.5 fl (6.2-12.0); Platelet Count 217 K/mm3 (150-450); RBC Distribution Width CV 13.9 % (11.6-14.6); RBC Distribution Width SD 50.3 fl (35.1-43.9); Red Blood Count 4.49 M/mm3 (4.6-6.2); White Blood Count 7.7 K/mm3 (4.4-11.0)
[2020-07-21 17:04] LABS: International Normalized Ratio 1.1; Prothrombin Time (Protime)PT. 13.6 SECONDS (11.7-14.9)
[2020-07-21 17:05] LABS: Partial Thromboplast Time 28.1 Seconds (24.1-36.2)
[2020-07-21 17:39] LABS: Anion Gap 6 (5-15); BUN 22 mg/dL (7-18); BUN/Creat Ratio 15.1 RATIO (10-20); Calcium,Total 9.1 mg/dL (8.5-10.1); Chloride 101 mmol/L (98-107); Creatinine, Serum 1.46 mg/dL (0.70-1.30); EST Glomerular Filtration Rate 50 mL/min (>60); Est Glom Filt Rate - Afr Amer 60 mL/min (>60); Glucose 168 mg/dL (74-106); Potassium 3.7 mmol/L (3.5-5.1); Sodium Level 138 mmol/L (136-145)
[2020-07-24 09:14] VITALS: BMI 41.2
--- NOTE | 2020-07-25 08:01 | HP.PCM_ITS ---
Problem List (1) Abnormal stress test Status: Acute History and Physical Date of Admission: 07/25/20 [facility] [address] [place] [address] OFFICE VISIT Date of Service: 07/02/20 MR#: [id number] Acct: [id number] Name: LUCIA NEGRO Rep #: [id number] : 1945 Provider: Dr. Ever Guidry MD Age/Sex: 75/M Location: [facility] [place] Status: Signed HPI HPI History of Present Illness Details: This is a 74-year-old male who presents the office today for a cardiovascular outpatient follow-up with a past medical history of coronary artery disease status post LCX PCI, hyperlipidemia, hypertension, diabetes mellitus, [place], and obesity. As you recall, the patient was evaluated at [facility] in March 2020 for non-ST elevated myocardial infarction. He presented with neck and left shoulder discomfort associated shortness of breath, nausea, and headache. His troponin in the Emergency Department noted be 5.4. He underwent a heart catheterization that resulted in PTCA/GAIL to mid circumflex. His echocardiogram showed ejection 45% and RVSP of 55 mmHg. He did undergo follow-up transthoracic echocardiogram in January of this year. The results are as noted below. At that point time it appeared his overall LV systolic function was improved. He states his main concern at the moment is shortness of breath and dyspnea with exertion. He does not complain of associated chest discomfort. He has not had orthopnea or PND. He does have an element of lower extremity peripheral pitting edema which is not significantly changed. There is been no near syncope or syncope. Intake Vital Signs 07/02/20 Height 5 ft 8 in 07/02/20 Weight: 271 lb 2 oz 07/02/20 BP 114/62 07/02/20 Blood Pressure Location Lt brachial 07/02/20 Position Sitting 07/02/20 Respiration 18 07/02/20 Pulse 80 07/02/20 Pulse Source Auscultation Intake Visit Reasons: 9 m fu [employer] Required: No Accompanied by: Self Allergies No Known Allergies Allergy (Verified 07/02/20 14:38) Medications Aspirin [Aspirin EC] 81 mg PO QODAY 10/19/19 [History Confirmed 07/02/20] Cholecalciferol (VIT D3) [Vitamin D3] 1,000 unit PO DAILY 10/19/19 [History Confirmed 07/02/20] Docusate Sodium [Colace] 100 mg PO DAILY 10/19/19 [History Confirmed 07/02/20] Folic Acid 0.4 mg PO DAILY 10/19/19 [History Confirmed 07/02/20] Furosemide [Lasix] 40 mg PO BID 10/19/19 [History Confirmed 07/02/20] Krill/[place]-3/Dha/Epa/Lipids [Krill Oil 300 mg Softgel] 1 cap PO DAILY 10/19/19 [History Confirmed 07/02/20] Metformin HCl [Metformin ER Osmotic] 1,000 mg PO DAILY 10/19/19 [History Confirmed 07/02/20] Multivitamin with Minerals [Multiple Vitamin] 1 ea PO DAILY 10/19/19 [History Confirmed 07/02/20] Pravastatin [Pravachol] 80 mg PO DAILY 10/19/19 [History Confirmed 07/02/20] Ubidecarenone [Co Q-10] 10 mg PO DAILY 10/19/19 [History Confirmed 07/02/20] Acetaminophen [Tylenol Extra Strength] 500 - 1,000 mg PO Q6H PRN PRN 11/01/19 [History Confirmed 07/02/20] Insulin NPH Human Isophane [Novolin N] 40 unit SQ QHS 11/01/19 [History Confirmed 07/02/20] Insulin NPH Human Isophane [Novolin N] 48 unit SQ BREAKFAST 11/01/19 [History Confirmed 07/02/20] carvedilol 6.25 mg tablet 6.25 mg PO BID #180 tab 04/02/20 [Rx Confirmed 07/02/20] clopidogrel 75 mg tablet 75 mg PO DAILY #90 tab 04/02/20 [Rx Confirmed 07/02/20] garlic 1,000 mg capsule 1,000 mg PO QPC 07/02/20 [History Confirmed 07/02/20] potassium chloride 10 mEq tablet,extended release 10 meq PO DAILY 07/02/20 [History Confirmed 07/02/20] tamsulosin 0.4 mg capsule 0.4 mg PO QHS 07/02/20 [History Confirmed 07/02/20] PFSH Medical History Essential hypertension (Chronic) Atherosclerotic heart disease of [place] coronary artery without angina pectoris (Chronic) Presence of stent in coronary artery (Chronic 10/20/19) NSTEMI (non-ST elevated myocardial infarction) (Acute) DM type 2 (diabetes mellitus, type 2) (Chronic) Hyperlipidemia (Chronic) Obesity (Chronic) Surgical History History of left heart catheterization (Chronic 10/20/19) Presence of coronary angioplasty implant and graft (Chronic ~10/20/19) Social History (Updated 07/02/20 @ 15:[address] Ever Guidry MD) Smoking Status: Former smoker ROS Const Const: Negative for fatigue, weakness, frequent falls, excessive sweating, weight gain or weight loss Eyes Eyes: Negative for transient loss of vision, blurry vision or change in vision ENT ENT: Positive for balance problems (ambulates with a cane); negative for dizziness Cardio Chest Pain: No Palpitations: No Edema: Left (slight) Muscle aches with walking: None Resp Respiratory: Positive for SOB with activity (baseline); negative for SOB at rest GI GI: Negative vomiting or vomiting blood/hematemesis : Negative for hematuria Musc Musc: Positive for balance problems (ambulates with a cane); negative for muscle aches/ myalgia, muscle weakness or joint pain Skin Skin: Negative non-healing lesions or rash Neuro Neuro: Negative for dizziness, lightheadedness, orthostatic symptoms, frequent falls, weakness or blurry vision [place] Hematologic/Lymphatic: Negative for easy bleeding Endo Endo: Negative for fatigue or excessive sweating Psych Psych: Negative for anxiety or depression Allergy Allergy/Immunology: Negative for hives, Negative for rash Cardiology Exam Const Appearance: cooperative, healthy appearing, comfortable, no acute distress, well developed and well groomed Nutritional Appearance: well nourished and obese Orientation: alert, awake and oriented x3 Head Head: normal to inspection, normocephalic and atraumatic Ears: hearing grossly normal bilaterally Nose: external nose normal Face and Sinus: face symmetric Eyes Eyelids: eyelids normal Conjunctivae: conjunctivae normal Pupils: PERRL EOM: EOM intact bilaterally Neck Neck: normal visual inspection, full ROM and no JVD Carotids: normal carotid upstroke Chest Chest inspection: normal inspection of the chest, symmetric chest movement and normal respiratory effort; negative cough Auscultation: Bilateral: Clear to Auscultation Cardio Palpation: normal PMI Rate: regular rate Rhythm: regular rhythm Heart sounds: S1 normal and S2 normal; negative rub, gallop or murmur GI GI: normal to inspection, soft, bowel sounds present and obese Neuro General: alert, awake, oriented x3 and moves all extremities Skin Skin: no rashes or lesions noted Extremities Pulses: Normal: Right Posterior Tibial Pulse, Left Posterior Tibial Pulse, Right Radial Pulse, Left Radial Pulse Lower Extremity Edema: +1: Bilateral Psych Psychological: normal affect Assessment & Plan 1. Atherosclerosis of [place] coronary artery of [place] heart without angina pectoris I25.10 Successful PTCA/GAIL mid LCX sequeing into large OM#1 on 10/20/2019; Plan He does have a history of CAD as noted above. He is not complaining of classic angina pectoris with respect to chest discomfort. There is some question as to whether or not his dyspnea on exertion is an angina pectoris equivalent. Based upon his concerns he will have a pharmacologic stress nuclear imaging study performed as he walks with a cane and cannot walk on a treadmill. Depending upon the findings he may or may not need repeat evaluation in the cardiac catheterization laboratory. If not then he may need to be evaluated for noncardiac issues of his shortness of breath and dyspnea on exertion. This may include PFTs. 2. Presence of stent in coronary artery Z95.5 Successful PTCA/GAIL mid LCX sequeing into large OM#1, utilizing an export catheter and double wire technique, placing a 3.0 x 38 Promus Synergy, post dilated in proximal 2/3 with a 4.0 x 12 NC balloon; 100%-->0%, no dissection. 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 per cath 10/20/19 Plan He will continue evaluation care as noted. Orders Orders: Nuclear Stress Test - Chemical Today 3. Hyperlipidemia, unspecified hyperlipidemia type E78.5 Plan His lipid labs were evaluated earlier this year. He will continue medical therapy and follow-up as deemed appropriate. 4. Essential hypertension I10 Plan His blood pressure appears to be well controlled at this time. He will continue medical therapy. 5. Dyspnea on exertion R06.00 Plan If his evaluation does not demonstrate a cardiopulmonary problem for shortness of breath and dyspnea than there may be a question as to whether or not it is unfortunately related to a combination of his age, obesity, and his functional limits walking with a cane. However he may still need further noncardiac evaluation by his other physicians. Plan Detail Additional Comments Thank you for allowing me to participate in the care of your patient. Please don't hesitate to call if any issues arise. This note was generated using a voice recognition system and there may be incorrect words, spelling or punctuation that were not noted when reviewing the office note prior to saving. Follow Up 6 Months (PFM) Coding Level of Care Code Off vis,est,level 4 Diagnoses Atherosclerosis of [place] coronary artery of [place] heart without angina pectoris I25.10 ??[place] vs. transplanted heart: [place] heart Presence of stent in coronary artery Z95.5 Hyperlipidemia, unspecified hyperlipidemia type E78.5 ??Hyperlipidemia type: unspecified Essential hypertension I10 Dyspnea on exertion R06.00 Coding Level of Care Code Off vis,est,level 4 Diagnoses Atherosclerosis of [place] coronary artery of [place] heart without angina pectoris I25.10 ??[place] vs. transplanted heart: [place] heart Presence of stent in coronary artery Z95.5 Hyperlipidemia, unspecified hyperlipidemia type E78.5 ??Hyperlipidemia type: unspecified Essential hypertension I10 Dyspnea on exertion R06.00 Supplemental Info Supplemental Information Echocardiogram from 10/19/2019: Interpretation Summary The study was technically difficult. Contrast injection was performed. Mild segmental systolic dysfunction (see wall motion). The estimated ejection fraction is 45 %. Moderate concentric left ventricular hypertrophy. The left atrium is mildly enlarged. There is moderate mitral annular calcification. Extension of the mitral annular calcification onto the mitral valve leaflets. Mild-Moderate (1-2+) mitral valve insufficiency. Mild tricuspid valve insufficiency. Mild focal aortic valve thickening. Small pericardial effusion. There are no echocardiographic indications of cardiac tamponade. Right ventricular systolic pressure estimated to be 55 mmHg. Transmitral diastolic flow velocities suggest diastolic dysfunction (pseudonormal pattern). Echocardiogram: 02/04/2020 Interpretation Summary The study was technically difficult. Segmental dysfunction with preserved ejection fraction (see wall motion). The estimated ejection fraction is 55 %. The left atrium is mildly enlarged. There is moderate mitral annular calcification. Extension of the mitral annular calcification onto the posterior mitral valve leaflet. Trivial mitral valve insufficiency. Trivial tricuspid valve insufficiency. Mild focal aortic valve thickening. Small pericardial effusion. There are no echocardiographic indications of cardiac tamponade. Right ventricular systolic pressure estimated to be 30 mmHg. There is evidence of diastolic dysfunction. Heart catheterization from 10/20/2019: CONCLUSIONS Elevated Left Ventricular End Diastolic Pressure Segmented LV systolic dysfunction- Moderate LVEF: by LV gram 30 % [place] Multivessel CAD RECOMMENDATIONS Risk factor modification Medical therapy Referred for immediate PCI CORONARY ANGIOGRAPHY DOMINANCE: Right Dominant LEFT HEART ASSESSMENT Left Ventricular Ejection Fraction: by LV Gram 30 % Anterior Hypokinesis. Inferior Basal Hypokinesis - Severe. Inferior Mid Hypokinesis. Apical Hypokinesis Elevated Left Ventricular End Diastolic Pressure LVEDP: 23 mmHg LEFT MAIN: Angiographically normal LEFT ANTERIOR DESCENDING ARTERY: PROX LAD: Mild calcification, eccentric: 25 % Stenosis MID LAD: pre DX2: hazy: 50 % Stenosis, Mild luminal irregularities DIAGONAL 1: Proximal - small caliber vessel: diffuse: 85 % Stenosis DIAGONAL 2: Ostial - 50 % Stenosis CIRCUMFLEX ARTERY: PROX CIRC: is occluded RIGHT CORONARY ARTERY: PROX RCA: 25 - 50 % Stenosis MID RCA: Mild luminal irregularities DISTAL RCA: Mild luminal irregularities RT PDA: Proximal - Mild luminal irregularities COLLATERAL FLOW: Collateral flow from Right to Left AORTIC ROOT: Angiographically normal Cardiac intervention from 10/20/2019: CONCLUSIONS Successful PTCA/GAIL mid LCX sequeing into large OM#1, utilizing an export catheter and double wire technique, placing a 3.0 x 38 Promus Synergy, post dilated in proximal 2/3 with a 4.0 x 12 NC balloon; 100%-->0%, no dissection. 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 Labs LDL Cholesterol 104 mg/dL (0-130) 10/20/19 HDL Cholesterol 43 mg/dL (40-) 10/20/19 Triglycerides 71 mg/dL (-199) 10/20/19 VLDL Cholesterol 14 mg/dL (5-40) 10/20/19 Diagnostics Electrocardiogram 10/23/19 Echocardiogram 02/04/20 Cardiac Catheterization 10/20/19 Chest X-Ray 10/19/19 07/02/20 [id number] <Electronically signed by Ever chan MD> Date _ Ever Guidry MD Cosigner Signature: Date (if applicable) CC: Dr. Paulo Nguyen MD ~ I have examined the patient the following changes are noted: Stress Test Report Date: 07-15-2020 Procedure: Pharmacologic stress nuclear imaging study Indications: Shortness of breath/dyspnea on exertion; CAD; status post PCI Consent: Per the patient Procedure: The patient underwent pharmacologic (Regadenoson) evaluation with a peak heart rate of 86 beats per minute (60%predicted maximal heart rate) and a peak blood pressure of 138/74 mmHg. The baseline ECG demonstrated sinus rhythm. The peak pharmacologic ECG demonstrated no obvious ECG changes. There were no cardiac dysrhythmias pretest, during pharmacologic infusion, or recovery. There was no complaint of chest discomfort during pharmacologic infusion or recovery. The examination was discontinued secondary to completion of protocol. Impression: 1. Pharmacologic (Regadenoson) evaluation 2. Peak pharmacologic ECG with no obvious ECG changes. 3. There were no cardiac dysrhythmias pretest, during pharmacologic infusion, or recovery. 4. Nuclear images pending Myocardial perfusion imaging study: Technique: The patient was injected with 15.0 millicuries of technetium 99m Cardiolite and subsequently rest SPECT Cardiolite nuclear imaging was obtained in the horizontal long, vertical long, and short axis views. The patient underwent pharmacologic (Regadenoson) evaluation with a peak heart rate of 86 beats per minute (60% percent predicted maximal heart rate) and a peak blood pressure of 138/74 mmHg. The patient was injected with 43.0 millicuries of technetium 99m Cardiolite and subsequently stress SPECT Cardiolite nuclear imaging was obtained in the horizontal long, vertical long, and short axis views. A gated Cardiolite study at peak stress was obtained. Interpretation: Rest and stress SPECT Cardiolite nuclear imaging status post realignment, normalization, and attenuation correction demonstrate the appearance of diminished to absence of myocardial perfusion/tracer uptake in the basal to distal inferior lateral and inferior apical segments at both rest and stress and status post stress the notation of an area of mild decreased tracer uptake in portions of the mid anterior segments. There is diminished end systolic thickening and brightening in the aforementioned areas-inferolateral. The gated Cardiolite study demonstrates diminished myocardial thickening and inward wall motion in the aforementioned areas-inferolateral. The reported LVEF is 38%. Impression: 1. Rest and stress SPECT Cardiolite nuclear imaging demonstrate myocardial perfusion changes compatible with an area of previous myocardial injury/infarction involving portions of the inferolateral and inferoapical segments with post-rest myocardial perfusion changes suggesting an area compat ible with mild stress-induced myocardial ischemia in portions of the mid anterior segments. 2. The gated Cardiolite study reports an LVEF of 38%. Patient's case was reviewed. The recommendation has been made for further evaluation with diagnostic cardiac catheterization. The procedure and risk were discussed with the patient. He was agreeable to this approach. Procedure Criteria Procedure Type: Elective COVID Risk Discussion: The surgeon/proceduralist and patient have discussed in detail the risk of exposure to and/or potential harm posed by the COVID-19 virus with having a surgery/procedure at this time versus the risk of delaying the surgery/procedure. It is not possible to know either the risk of delaying the s urgery or procedure or chance of getting an infection with perfect accuracy, but a joint decision was made between the patient and the surgeon/proceduralist to proceed at this time with the scheduled surgery/procedure as indicated on the consent form.
--- NOTE | 2020-07-25 12:15 | CL.D_ITS ---
Patient Name: LUCIA NEGRO Study Date: 07/25/2020 Performing: Ever Guidry MD Ht: 68 inches 172.72 cm : 1945 Wt: 270 lbs 122.47 kg Age: 75 Gender: male BSA: 2.32 PROCEDURE(S) PERFORMED [id number] CLINICAL PROFILE AND INDICATIONS Indications: Suspected CAD, LV Dysfunction Heart Failure: None Stress/Imaging Date: 07/15/2020 Angina Classification Anginal Classification w/in 2 Weeks: Anginal Equivalent Dyspnea CAD Presentations: Other: dsypnea on exertion CONCLUSIONS [place] Multivessel CAD RECOMMENDATIONS Risk factor modification Medical therapy Surgery consult for coronary revascularization DESCRIPTION OF PROCEDURE The patient arrived to the procedure lab. The risks and benefits of the procedure as well as a full d escription of our services here and current unavailability of surgical backup were fully explained to the patient and/or their significant other prior to the catheterization. The Timeout was completed, verifying the correct patient and procedure. The patient's procedural site was prepped and draped in the usual fashion. Local anesthetic was given subcutaneously to right radial region with Lidocaine 2% . Using a modified Seldinger technique, arterial access was obtained via the right radial artery, a 6 Fr sheath was inserted. Left Coronary Artery selective angiography was performed in multiple views u sing a 5 Fr. 4.0 [place] catheter. Right Coronary Artery selective angiography was then performed in mu ltiple views using a 5 Fr. 4.0 [place] catheter. Left Coronary Artery selective angiography was perform ed in multiple views using a 5 Fr. JL3.5 catheter.The arterial sheath was pulled and a TR Band was applied for hemostasis. 12cc of air CORONARY ANGIOGRAPHY DOMINANCE: Right Dominant LEFT MAIN: Mild luminal irregularities LEFT ANTERIOR DESCENDING ARTERY: PROX LAD: Mild luminal irregularities, 50 % Stenosis MID LAD: at bifurcation of LAD / DX: 85 % Stenosis, Mild luminal irregularities DIAGONAL 1: Ostial - 75 % Stenosis CIRCUMFLEX ARTERY: Mild luminal irregularities MID CIRC: Previously placed stent is patent, ecceentric: 85 % Stenosis OM 1: Mid - 90 % Stenosis OM 2: Proximal - small caliber vessel: subtotally occluded RIGHT CORONARY ARTERY: Mild luminal irregularities PROX RCA: 25 % Stenosis DISTAL RCA: 25 % Stenosis RT PDA: Ostial - 75 % Stenosis COMPLICATIONS No Complications PROCEDURE MEDICATIONS Versed 1 mg IV Fentanyl 50 mcg IV Oxygen: 2 L/min via nasal cannula Heparin diluted in 23cc Heparinized saline. Patient given 10cc IA of this solution. 07/25/2020 11:26 :43 Verapamil 2.5mg, Ntg 100mcgs, 2000 units of Heparin diluted in 23cc Heparinized saline. Patient give n 10cc IA of this solution. 07/25/2020 11:26:43 SUMMARY OF HEMODYNAMIC DATA Time AIR REST ECG 09:07:11 AO 110/76 (93) SA 11:32:19 Signed By Ever Guidry MD On 07/25/2020 12:15:15 Ever Guidry MD
== END 2020-07-25 13:30 | disposition home or self-care (01) ==
LOC: CLSP 08:48
PROVIDERS: PCP Family Medicine; Referring Provider Internal Medicine Cardiovascular Disease; Visit Provider Internal Medicine Cardiovascular Disease
DX: I25.10 Atherosclerotic heart disease of native coronary artery without angina pectoris (principal); R06.00 Dyspnea, unspecified; R06.02 Shortness of breath; E78.5 Hyperlipidemia, unspecified; I10 Essential (primary) hypertension; E11.9 Type 2 diabetes mellitus without complications; E66.9 Obesity, unspecified; Z95.5 Presence of coronary angioplasty implant and graft; Z79.4 Long term (current) use of insulin; Z79.899 Other long term (current) drug therapy; Z87.891 Personal history of nicotine dependence
CPT/HCPCS: 36415; 71046; 80048; 85027; 85610; 85730; 93454; 99152; 99153; J7040; Q9967; C1769; C1894

== ENCOUNTER 2020-11-07 10:48 | Outpatient (RCR) | payer MEDICARE, OTHER, SELFPAY ==
[2020-02-27 13:39] VITALS: BMI 39.6
[2020-07-24 09:14] VITALS: BMI 41.2
== END 2020-11-07 23:59 ==
LOC: IMMUN 10:48
PROVIDERS: PCP Family Medicine; Referring Provider Family Medicine; Visit Provider Family Medicine
DX: Z23 Encounter for immunization (principal)
CPT/HCPCS: 0011A; 0012A; 91301

== ENCOUNTER → 2020-12-01 12:53 | Outpatient (CLI) | payer MEDICARE, OTHER, SELFPAY ==
[2020-02-27 13:39] VITALS: BMI 39.6
[2020-07-24 09:14] VITALS: BMI 41.2
--- NOTE | 2020-12-01 12:59 | CR.ITP_ITS ---
Diagnosis - General Information Admitting Diagnosis: Previous MIs, previous PCI w/stents, previous CABG, recent NSTEMI and subsequent had 7 stents placed at [facility]. Personal Learning Style:: Audio/Visual, Written Barriers to Learning: Hearing Impairment, Vision Impairment Stage of change r/t lifestyle modifications:: Action Gave educational material for:: Treating Heart Disease, Emotions & Heart Disease, Stress Management & Relaxation, Sleep Disorders & Heart Disease, How The Heart Works, What it means to have Heart Disease, How Coronary Artery Disease is Diagnosed, Heart Procedures, What Heart Medications Do, Risk Factors & Modifications, Living an Active Life, Nutrition - Education/Goals Individual Counseling: Initial Assessment: Abnormal Cholesterol Levels, High Blood Pressure, Overweight/Obesity, Diabetes, Metabolic Syndrome (as evidenced by 3 of 5 A-E below), A. Fasting Blood Sugar >100, B. Waist Circumference >35/Females >40/Males, Hypertension - 112/64 Cardiac Rehabilitation Goals: 1. Maintain the individual as the primary focus of care. 2. To improve the patient's quality of life. 3. Identification of cardiac risk factors and provide cardiac risk factor management. 4. Enhance the psychosocial status of the patient. 5. Reconditioning enough to allow the patient to resume customary activities. 6. Control symptoms of cardiac disease Personal Goals: Initial Assessment: Improve management of stress and emotions, Improve energy level, Participate in home exercise program, Improve knowledge of cardiac disease, Improve muscle strength and endurance, Improve diet and eating habits (eat healthier), Control risk factors (learn risk factor modification) Scale for measuring improvement of personal goals: Enter appropriate number in Comments. 2 = Unchanged. 3 = Slightly Better. 4 = Moderate Improvement. 5 = Met my Goal - Diagnosis & Disease Process Outcomes/Goals: Pt IDs own risk factors & lifestyle modifications by Session 10, Verbalizes symptoms of angina & response by session 3., Pt independently manages Plan/Interventions: Assist Pt to ID & engage in lifestyle modification to reduce CVD risk, Instruct on individual risk factors, Review symptoms of angina & emergency actions, Review secondary diagnosis & identify educational needs. - Safety Referral to Physical Therapy: No Referral to [facility] Case Management: No Fall Risk Assessed:: Yes Assistive Devices:: Cane, Walker Exercise - Initial Assessment - Visit Date of Eval: 12/01/20 Session #:: 0 - pre-cardiac rehab eval Mets: Pre-: >5 METS for 30 minutes by discharge - Physician Prescribed Exercise Modalities: Treadmill, NuStep, SciFit Frequency: 3x/week for 12 weeks [36 sessions] Intensity: 60-80% of age predicted maximum heart rate reserve Target Heart Rate:: 93-121 Resting Blood Pressure: 112/64 EKG Type: Sinus rhythm with first degree AV block - Outcomes & Goals Goals:: Verbalizes understanding of THR, RPE & goal METS by session 6, Documents in home exercise log/reports 30 min aerobic 5 day/wk by DC, Demonstrates accurate pulse taking by DC - Intervention & Plan Exercise Program Goals: Instruct on personal THR & RPE, Instruct on MET level & personal MET goal, Show patient to take own pulse /validate performance until accurate, Instruct on home exercise - Physical Activity Home Exercise Physical Activity - Home Exercise: Safe Exercise, Warm-up, Self-monitoring, Cool-Down, Home Exercise > 30 min Daily, Sitting Time <3 hours/daily - Outcomes & Goals Outcomes/Goals: Demonstrates correct Warm-up/exercise Cool-Down (S3) if = 2.5 METs, Verbalizes symptoms of exercise intolerance by Session 3 (S3), Demonstrate safe equipment use (S3) & follows exercise prescrition (6) - Intervention & Plan Plan/Intervention: Instruct warm-up & cool-down if exercising at > 2 METs, Instruct on symptoms of exercise intolerance & actions to take, Instruct & mo nitor on saf, Assess intial functional capacity & safety risk Nutrition - Initial Assessment - Program Goals Nutrition Program Goals: LDL <100 optimal. 100 - 129 Near optimal. 130 - 159 Borderline High. 160 - 189 High. Total Cholesterol <200 desirable. 200 - 239 Borderline High. >/= 240 High. HDL < 40 Low >/=60 High. Triglycerides <150 desirable. <199 optimal. VlDL 5 - 40. HgbA1C <7%. BMI <25 Patient has diagnosis of Hyperlipidemia (ICD E78)?: Yes - Visit Date of Assessment:: 12/01/20 Session #:: 0 - pre-cardiac rehab eval - Cholesterol/Lipids Triglycerides (mg/dL): 71 - 10/20/2019 Total Cholesterol (mg/dL): 150 LDL Cholesterol (mg/dL): 104 HDL Cholesterol (mg/dL): 43 Determine presence & major risk factors that modify LDL goal: Hypertension or hypertensive medication, Family history of premature CHD in Male < 55 years: female <65 yearsFa, Age men > 45 years; women >/= 55 years Outcomes/Goals: Pt IDs own risk factors & lifestyle modifications by Session 10, Verbalizes symptoms of angina & response by session 3., Pt independently manages Intervention/Plan: Instruct on personal lipid levels & lipid goals/NCEP guidelines, Instruct on cholesterol - Diabetes (Other Core Measures) Insulin dependent injection/pump?: Yes Non-Insulin Dependent?: Yes Do you monitor your blood sugar at home?: Yes Referral to Diabetic Clinic:: Yes Outcomes/Goals:: Able to state symptoms of, Able to state, Able to state Intervention/Plan:: Instruct on, Refer to, Instruct on - Weight Mgt (Other Care) Not Applicable: No Height: 5 ft 8 in Weight:: 271 lb BMI: 41.2 Diagnosis Overweight/Obesity BMI> 30% ICD-10 E66: Yes Diagnosis High BMI/Morbid Obesity BMI> 35% ICD-10 Z68: Yes Outcomes/Goals: Pt sets, maintains & shows weight loss goal & trend during rehab Intervention/Plan: Instruct on ideal BMI & set weight loss goal w/patient, Assist pt to ID & incorporate diet changes for weight loss by S9, Refer to Structured Weight Loss program as appropriate, Encourage goal of using 250- 300dcal per session for weight loss - Healthy Eating Habits Will attend diet classes:: Yes Outcomes/Goals:: Consume diet rich in vegs,fruits,whole grain/high fiber,fish,lean meat, Limit sat/trans fats,cholesterol & added salts & sugars Intervention/Plan:: Assess current eating habits - Education Gave educational materials for:: Signs & symptoms of hypoglycemia, Signs & symptoms of hyperglycemia, Relate diabetes to coronary artery disease, Healthy eating Medical - Initial Assessment - Visit Date of Eval: 12/01/20 Session #:: 0 - pre-cardiac rehab eval - Medication Compliance Preventative Medication(s):: Aspirin, Clopidogrel/P2Y12 inhibit, Statin/lipid, Beta julian H/O mental health issues: depression, anxiety, or addiction?: Yes Doesn?t believe in the benefits of treatment?: No Believes medications are unnecessary or harmful?: No Has a concern about medication side effects?: No Expresses concern over the cost of medications?: No Outcomes/Goals: Verbalizes medications,desired effect & common side effects @ DC, Pt self-reports following medication regimen, Keeps card in wallet w/medications listed by DC Interventions/plans: Instruct on medication effects & side effects, Review medication list w/patient every two weeks, Instruct importance of taking meds as ordered & assist problem solving - Tobacco Use Tobacco Use: Non-smoker - Hypertension Hypertension Diagnosis:: Hypertension ICD-10 I10 Resting Blood Pressure:: 112/64 [place] [employer] Hypertension Guidelines: [place] [employer] Hypertension Guidelines. Normal BP Less than 120/80. Elevated BP 120/80. Hypertension Stage 1: BP 130-139/80-89. Hypertesnion Stage 2: BP 140 or higher/90 or higher. Hypertension Crisis: BP higher than 180/120 Outcomes/Goals: Able to verbalize/achieve optimal blood pressure <130/80, Incorporates diet changes & exercise for blood pressure control by DC Interventions/plan: Instruct on optimal blood pressure, hypertension & medications, Instruct on effects of sodium, alcohol, stress, exercise &hypertension - Tobacco Cessation Referral Smoking Cessation Referral:: No Individual Education/Counseling:: No Education Schedule Given:: Yes Psychosocial - Initial Assess - VIsit Date of Eval: 12/01/20 Session #:: 0 - pre-cardiac rehab Not Applicable: No History of previous Mental disease:: Yes History of Emotional Disorders: Depression - Target Goals Target Goals: Assess presence or absence of depression. Using a valid screening tool, maximizes coping skills. Positive support system - Psychosocial Test Tool Used:: Caleb De La Torre QOL Cardiac, PHQ-9 Questionnaire phq-9 Severity: Severity. 1-4 Minimal Depression. 5-9 Mild Depression. 10-14 Moderate Depression. 15-19 Moderately Sever Depression. 20-27 Severe Depression. Rule: - Referral to Behavioral Health PS - Interventions: Yes Attend Stress Management Classes, No Referral to Behavioral Health if PHQ-9 score >9:, No Referral to [facility], No Referral to Physician if PHQ-9 if score is 5-9: - Outcomes/Goals: See list Psychosocial Outcomes/Goals:: ID's personal stressors & 2 strategies to manage stress by discharge - Intervention/Plan: See List Interventions/Plan:: Assess stressors,coping strategies & signs of derpression on admission, Instruct/assist pt to develop coping & personal stress Mgt strategies, Instruct patient to recognize signs & symptoms of depression, Instruct patient to recog Patient Health Questionnaire Initial Assessment 1. Little interest or pleasure in doing things: More than half the days 2. Feeling down, depressed, or hopeless: Several days 3. Trouble falling or staying asleep, or sleeping too much: Not at all 4. Feeling tired or having little energy: Not at all 5. Poor appetite or overeating: Not at all 6. Feeling bad about yourself -- or that you are a failure or have let yourself or your family down: Not at all 7. Trouble concentrating on things, such as reading the newspaper or watching television: Not at all 8. Moving or speaking so slowly that other people could have noticed. Or the opposite - being so fidgety or restless that you have been moving around a lot more than usual: Not at all 9. Thoughts that you would be better off , or of hurting yourself in some way: Not at all How difficult have these problems made it for you to do your work, take care of things at home, or get along with other people?: Not difficult at all Total Score: 3 MONIE-Q SV Test - Statements CAD is a disease of the arteries in the heart: False Examples of risk factors for heart disease: True Angina is chest pain or discomfort: True The benefits of resistance training include: True Eating more meat and dairy products: False Anti-platelet medications such as aspirin are important: True The only effective way to manage stress: False An exercise warm-up slowly increases heart rate: True Prepared, processed foods usually have high sodium: True Depression is common after a heart attack: I Don't Know The statin medications lower cholesterol: True To control blood pressure, lower the amount of sodium: True If someone gets chest discomfort during walking: False Transfats are partially hydrogenated vegetable oils: True Sleep apnea that is not treated increases the risk: True To control cholesterol, one should become a vegetarian: False Someone knows if he/she is exercising at the right level: True Diabetes cannot be prevented with exercise & health eating: False Stress is a large risk for heart attack: True A diet that can help lower blood pressure is rich in: True - Total Score Total Correct Responses: 18 Self-Efficacy Initial Assessment We would like to know how confident you are in doing certain activities. Please select your confidence level for:: Select your confidence level for the following using the scale 1-10 where 1 is not at all confident and 10 is totally confident. Your score is the average of all 6 responses. Fatigue: How confident are you that you can keep the fatigue caused by your disease from interfering with the things you want to do? Select Number: 10 Physical Discomfort or Pain: How confident are you that you can keep the physical discomfort or pain of your disease from interfering with the things you want to do? Select Number: 10 Emotional Distress: How confident are you that you can keep the emotional distress caused by your disease from interfering with the things you want to do? Select Number: 10 Other Symptoms or Health Problems: How confident are you that you can keep other symptoms or health problems from interfering with the things you want to do? Select Number: 10 Different Tasks and Activities: How confident are you that you can do the different tasks and activities needed to manage your health condition so as to reduce your need to see a doctor? Select Number: 8 Medication: How confident are you that you can do things other than just taking medication to reduce how much your illness affects your everyday life? Select Number: 10 Total Score:: 9 Nutrition Survey - Nutrition Survey Instructions Scoring Instructions: Scoring is as follows: Yes = 1 points. No = 0 point. Patient score that is >/=12 is considered to be at potential nutritional risk and could benefit from a referral to a registered dietitian. - Nutrition Survey Initial Have you lost >10 lbs over the past 2 months without trying?: No Are you following a special diet at home for diabetes, low fat, or low salt?: Yes Are you interested in meeting with a dietitian for help understanding your diet?: No Do you eat less than 3 meals a day?: No Do you eat fatty meats (mcclellan, sausage, ribs, etc), fried foods, desserts, large amounts of salad dressings, margarine, butter, or cheese most days?: No Do you have food allergies? [Enter types in comment field]: No Do you eat in restaurants more than 3 times a week?: No Do you season food with salt, seasoning salt, or garlic salt?: No Do you used canned, boxed, frozen meals, or soups, seasoning packets?: No Total Score:: 1
--- NOTE | 2020-12-01 13:02 | PCM.CR.HP2 ---
CR - History & Physical - General Arrival date:: 12/01/20 Arrival time:: 13:04 Date of Referral:: 10/17/20 Date of CR Evaluation:: 12/01/20 Referring Physician: DR. LENO ORANTES @ [facility] Primary Diagnosis: PCI W/CORONARY STENTS (7) - History of Present Cardiac Event Onset Date: Enter Onset Date of cardiac illnesses in Comment field below Acute Myocardial Infarction within 12 months:: Yes - NSTEMI PTCA or coronary stenting:: Yes - 10/17/2020 Type of Symptoms:: Admitted to [facility] with chest pain, taken to offset label rewinder. Dr. Guidry sent patient to [facility] due to high risk procedure and previous CABG history. Interventions with present event:: Patient had 7 stents placed at [facility] main campus. - Medications Home Medications: Ambulatory Orders Medication Instructions Recorded Aspirin [Aspirin EC] 81 mg PO QODAY 10/19/19 Cholecalciferol (VIT D3) [Vitamin 1,000 unit PO DAILY 10/19/19 D3] Docusate Sodium [Colace] 100 mg PO DAILY 10/19/19 Folic Acid 0.4 mg PO DAILY 10/19/19 Furosemide [Lasix] 40 mg PO BID 10/19/19 Krill/Skykomish-3/Dha/Epa/Lipids 1 cap PO DAILY 10/19/19 [Krill Oil 300 mg Softgel] Metformin HCl [Metformin ER 1,000 mg PO DAILY 10/19/19 Osmotic] Multivitamin with Minerals 1 ea PO DAILY 10/19/19 [Multiple Vitamin] Pravastatin [Pravachol] 80 mg PO DAILY 10/19/19 Ubidecarenone [Co Q-10] 10 mg PO DAILY 10/19/19 Acetaminophen [Tylenol Extra 500 - 1,000 mg PO Q6H PRN PRN 11/01/19 Strength] Insulin NPH Human Isophane 40 unit SQ QHS 11/01/19 [Novolin N] Insulin NPH Human Isophane 48 unit SQ BREAKFAST 11/01/19 [Novolin N] carvedilol 6.25 mg tablet 6.25 mg PO BID #180 tab 04/02/20 clopidogrel 75 mg tablet 75 mg PO DAILY #90 tab 04/02/20 garlic 1,000 mg capsule 1,000 mg PO QPC 07/02/20 potassium chloride 10 mEq 20 meq PO DAILY 09/23/20 tablet,extended release tamsulosin 0.4 mg capsule 0.4 mg PO QHS 07/02/20 isosorbide mononitrate 30 mg 30 mg PO QAM #30 tab 07/25/20 tablet,extended release 24 hr Albuterol IH (ProAir) [Proair Hfa 1 - 2 puff INHALATION Q6H PRN PRN 12/01/20 (SP)Vent Pts] Carvedilol [Coreg] 6.25 mg PO 12/01/20 Docusate Sodium [Colace] 100 mg PO BID 12/01/20 Oxybutynin Chloride [Ditropan Xl] 5 mg PO QHS 12/01/20 Oxybutynin Chloride [Ditropan Xl] 10 mg PO DAILY 12/01/20 Pravastatin [Pravachol] 80 mg PO DAILY 12/01/20 - Allergies Allergies/Adverse Reactions: Allergies No Known Allergies Allergy (Verified 07/02/20 14:38) - Sleep Disorder Evaluation Hx of Sleep Apnea: Yes Do you snore loudly (louder than talking or can be heard through closed doors)?: Yes - has home BiPAP unit for QHS Do you often feel tired/ fatigued/ sleepy during daytime?: No Has anyone observed you stop breathing during sleep?: No History of Hypertension (for STOP score): Yes STOP Results: Positive Advanced Directives - Advanced Directives Power of Instructor Painting: No - not sure Living Will: No - not sure Advance Directives Information Provided: Yes Advance Directives on File: No DNR Order?:: No - MOLST See MOLST form: No Past Medical History - Covid-19 Screening Fever: No Unexplained muscle aches: No Current respiratory symptoms: No - H/O shortness of breath with activity Upper respiratory infections symptoms: No Gastro-intestinal symptoms: Yes - GERD Baw-Knyd-Xkfnvv symptoms: No Has tested positive for COVID-19 in last 30 days: No Had contact w/person w/symptoms or Covid-19 (+) last 14 days: No Has High Risk Exposures ID'd by Health dept/Inf Control team: No 65 years or older:: Yes Lives in Assisted Living facility:: No Has a chronic lung disease or moderate to severe asthma:: No Has a serious heart condition:: Yes Severely obese (Body Mass Index of 40 or higher):: Yes Diabetic:: Yes Has chronic kidney disease undergoing dialysis:: Yes Has liver disease:: No - Past Medical Illness Medical History: Past Medical History (Last Reviewed 07/02/20 @ 14:43 by Felicita Arriaga) Essential hypertension (Chronic) I10 Atherosclerotic heart disease of [place] coronary artery without angina pectoris (Chronic) I25.10 Successful PTCA/GAIL mid LCX sequeing into large OM#1 on 10/20/2019; Presence of stent in coronary artery (Chronic) Onset Date: 10/20/19 Z95.5 Successful PTCA/GAIL mid LCX sequeing into large OM#1, utilizing an export catheter and double wire technique, placing a 3.0 x 38 Promus Synergy, post dilated in proximal 2/3 with a 4.0 x 12 NC balloon; 100%-->0%, no dissection. Unable to pass run through wire down LPL branch as it appears to be a FINANCIAL CONTROLLER with adequate R to L collaterals. per cath 10/20/19 NSTEMI (non-ST elevated myocardial infarction) (Acute) I21.4 DM type 2 (diabetes mellitus, type 2) (Chronic) E11.9 Hyperlipidemia (Chronic) E78.5 Obesity (Chronic) E66.9 - Past Surgical History Surgical History: Past Surgical History (Last Reviewed 07/02/20 @ 14:43 by Felicita Arriaga) History of left heart catheterization Onset Date: 10/20/19 Z98.890 Left Ventricular Ejection Fraction: by LV Gram 30%; Anterior Hypokinesis. Inferior Basal Hypokinesis - Severe. Inferior Mid Hypokinesis. Apical Hypokinesis. Elevated Left Ventricular End Diastolic Pressure LVEDP: 23 mmHg. LEFT MAIN: Angiographically normal. LEFT ANTERIOR DESCENDING ARTERY: PROX LAD: Mild calcification, eccentric: 25 % Stenosis; MID LAD: pre DX2: hazy: 50 % Stenosis, Mild luminal irregularities; DIAGONAL 1: Proximal - small caliber vesseld: diffuse: 85 % Stenosis DIAGONAL 2: Ostial - 50 % Stenosis; CIRCUMFLEX ARTERY: PROX CIRC: is occluded. RIGHT CORONARY ARTERY: PROX RCA: 25 - 50 % Stenosis; MID RCA: Mild luminal irregularities DISTAL RCA: Mild luminal irregularities; RT PDA: Proximal - Mild luminal irregularities; COLLATERAL FLOW: Collateral flow from Right to Left Per LHC per PFM 10/20/2019 Presence of coronary angioplasty implant and graft Onset Date: ~10/20/19 Z95.5 Successful PTCA/GAIL mid LCX sequeing into large OM#1, utilizing an export catheter and double wire technique, placing a 3.0 x 38 Promus Synergy, post dilated in proximal 2/3 with a 4.0 x 12 NC balloon; 100%-->0%, no dissection. Unable to pass run through wire down LPL branch as it appears to be a FINANCIAL CONTROLLER with adequate R to L collaterals. per cath 10/20/19 Surgical History: noncontributory, total knee arthroplasty - right knee Social History - Smoking History Smoking Status: Never smoker - Alcohol Use Alcohol Usage: No - Substance Abuse Hx Substance Use: No - Occupation Occupation (List type of work in comments):: Retired - Hobbies, Recreation, Social Activities Hobbies: None Recreational Activities: I cannot do any recreational activities at all Social Environment - Status Marital Status: - Current Living Arrangements Living Environment:: Spouse - Children How many children do you have?: 2 Do any of your children live nearby?: Yes - Safety Do you feel safe in your surroundings?: Yes Review of Systems - Review of Systems Hints: Right click = Denies ([place]). Left click = Reports ([place]) Review of Present Symptoms: Reports: Shortness of Breath at Rest, Shortness of Breath with Exertion - still have a lot of the shortness of breath, Dr. Orantes said he doesn't believe it is his heart issue at the last office visit., Fatigue, Heart Arrhythmia/Irregularities - First degree AV Block, Appetite - Normal, Appetite - Special Diet - low sodium, low fat, diabetic diet., Sleep - Normal. Denies: Dizziness/Lightheadedness - Pain Is Patient Pain Free?: Yes Pain Location: neck Pain Level: 8/10 - had cervical XRay done was told it was all arthritis. Risk Factor Assessment - Chief Complaint Chief Complaint: Pt is a 75 [address] of [address] Ever Guidry who was treated at [facility] for chest pain and and sent to [facility] for intervention due to his high risk. Patient will be following up with Dr. Orantes at [facility] and Dr. Kuo at [facility]. - Vital Signs Temperature: 97.7 F Respiratory Rate: 18 Pulse Ox: 96 Blood Pressure: 114/62 Nailbeds:: pink - Pulse Pulse Rate: 68 Pulse Rhythm: Regular - Hypertension How long have you been treated?: long time now; can't recall how long On medication(s)?: Yes Blood Pressure Sitting - Left Arm: 114/62 - Blood Cholesterol/Lipids Total Cholesterol (mg/dL) Goal = less than 200 mg/dL: 150 - 10/20/2019* HDL Cholesterol (mg/dL) Goal = less than 40 mg/dL: 43 LDL Cholesterol (mg/dL) Goal = less than 70 mg/dL: 104 Triglycerides (mg/dL) Goal = less than 150 mg/dL: 71 - Diabetes Diabetic History: Type II, Medication Dependent, Insulin Dependent Nutrition Referral for Diabetes: Yes - Obesity Height: 5 ft 8 in Weight:: 271 lb Weight in Pounds: 271.0 lbs Weight Source: Stated by Patient Body Mass Index (BMI): 41.2 Nutritional Referral for Obesity: Yes - Physical Inactivity Physical Inactivity: None - Risk Stratification Risk Guidelines: Lowest Risk: Risk Factor for Smoking, Risk Factor for Hypertension - 114/62, Moderate Risk: Risk Factor for Dyslipidemia, Risk Factor for Diabetes - Glucose 168, A1c 8.5, Risk Factor for Depression, Highest Risk: Risk Factor for Obesity - BMI 40+, Risk Factor for Sedentary Lifestyle - For Smoking Smoking Risk Guidelines: Smoking Low Risk: None or quit greater than 6 months ago. Smoking Moderate Risk: Smoker or quit 6 months or less ago. Smoking High Risk: Smoker - For Dyslipidemia Dyslipidemia Risk Guidelines: Low Risk: Moderate Risk: High Risk: 15-25% fat 25.1-29% fat >/= 30% fat. <7% sat fat 7-9% sat fat >9% sat fat. <150 mg chol 150-299 mg chol >/= 300 mg chol. LDL <100 LDL 100-129 LDL >/= 130. Chol/HDL ratio <5.0 Chol/HDL ratio 5.0-6.0 Chol/HDL ratio >6.0. Triglycerides <100 Triglycerides 100-149 Triglycerides >/= 150 - For Diabetes Mellitus Diabetes Risk Guidelines: Diabetes Low Risk: HgA1c <6.5% and/or FBG <120. Diabetes Moderate Risk: HgA1c 6.6-7.9% and/or FBG 120-180. Diabetes High Risk: HgA1c >/= 8% and/or FBG >180 - For Obesity/Overweight Obesity/Overweight Risk Guidelines: Obesity Low Risk: BMI <25.0. Obesity Moderate Risk: BMI 25-29.9. Obesity High Risk: BMI >/= 30.0 - For Hypertension Hypertension Risk Guidelines: Hypertension Low Risk: Systolic <120 and Diastolic <80. Hypertension Moderate Risk: Systolic 120-139 and Diastolic 80-89. Hypertension High Risk: Systolic >/= 140 and Diastolic >/= 90 - For Sedentary Lifestyle Sedentary Lifestyle Risk Guidelines: Sedentary Lifestyle Low Risk: >/= 1,500 kcal/week. Sedentary Lifestyle Moderate Risk: 700-1,499 kcal/week. Sedentary Lifestyle High Risk: < 700 kcal/week - For Depression Depression Risk Guidelines: Depression Low Risk: Not clinically depressed. Depression Moderate Risk: Mildly depressed. Depression High Risk: Clinically depressed Motivation - Motivation to Participate On a scale of 1 to 10, how prepared are you to commit to attending program?: 8 What do you see as barriers to successfully being able to complete the program?: breathing, ability to get around still even after the stents. What do you see as the benefits of succesfully completing the program? In other words, what do you hope to get out of participating in the program?: getting back in shape. Are there issues you are dealing with that will interfere with completing the program?: still short of breath Do you have a spouse or signficant other, family or friends who will help support you to complete the program?: yes.
[2020-12-01 13:28] VITALS: BP 112/64; BMI 41.2
[2020-12-01 13:38] VITALS: BP 114/62; PULSE 68; RESP 18; TEMP 36.5; O2SAT 96; BMI 41.2
== END ==
PROVIDERS: PCP Family Medicine
DX: Z95.5 Presence of coronary angioplasty implant and graft (principal)

== ENCOUNTER 2020-12-03 14:37 | Outpatient (RCR) | payer MEDICARE, OTHER, SELFPAY ==
[2020-12-01 13:28] VITALS: BMI 41.2
[2020-12-01 13:38] VITALS: BMI 41.2
== END 2020-12-07 23:59 ==
LOC: CR 14:37
PROVIDERS: PCP Family Medicine
DX: I25.10 Atherosclerotic heart disease of native coronary artery without angina pectoris (principal); Z95.5 Presence of coronary angioplasty implant and graft; E78.5 Hyperlipidemia, unspecified; E11.9 Type 2 diabetes mellitus without complications; I10 Essential (primary) hypertension
CPT/HCPCS: 93798

== ENCOUNTER 2021-01-07 14:15 | Outpatient (RCR) | payer MEDICARE, OTHER, SELFPAY ==
[2020-12-01 13:28] VITALS: BMI 41.2
[2020-12-01 13:38] VITALS: BMI 41.2
--- NOTE | 2020-12-29 10:47 | CR.ITP_ITS ---
Exercise - 30-day Assessment - Visit Date of Eval: 12/29/20 Session #:: 10 - Physician Prescribed Exercise Modalities: NuStep, SciFit Frequency: 3x/week for 12 weeks [36 sessions] Intensity: 60-80% of age predicted maximum heart rate reserve Current METSs:: 3.0 unchanged Target Heart Rate:: 93-112 Current RPE:: 11-12 Maximum Excercise HR:: 97 Resting Blood Pressure: 146/80 Maximum Exercise Blood Pressure: 160/90 EKG Type: NSR with rare PVCs - Outcomes & Goals Goals:: Verbalizes understanding of THR, RPE & goal METS by session 6, Documents in home exercise log/reports 30 min aerobic 5 day/wk by DC, Demonstrates accurate pulse taking by DC - Intervention & Plan Exercise Program Goals: Instruct on personal THR & RPE, Instruct on MET level & personal MET goal, Show patient to take own pulse /validate performance until accurate, Instruct on home exercise - 30-day Reassessments 30 day Reassessments:: Progressing - Physical Activity Home Exercise Physical Activity - Home Exercise: Safe Exercise, Warm-up, Self-monitoring, Cool-Down, Home Exercise > 30 min Daily, Sitting Time <3 hours/daily - Outcomes & Goals Outcomes/Goals: Demonstrates correct Warm-up/exercise Cool-Down (S3) if = 2.5 METs, Verbalizes symptoms of exercise intolerance by Session 3 (S3), Demonstrate safe equipment use (S3) & follows exercise prescrition (6) - Intervention & Plan Plan/Intervention: Instruct warm-up & cool-down if exercising at > 2 METs, Instruct on symptoms of exercise intolerance & actions to take, Instruct & monitor on saf, Assess intial functional capacity & safety risk - 30-day Reassessments 30 day Reassessments:: Progressing Nutrition - 30-Day Assessment - Program Goals Nutrition Program Goals: LDL <100 optimal. 100 - 129 Near optimal. 130 - 159 Borderline High. 160 - 189 High. Total Cholesterol <200 desirable. 200 - 239 Borderline High. >/= 240 High. HDL < 40 Low >/=60 High. Triglycerides <150 desirable. <199 optimal. VlDL 5 - 40. HgbA1C <7%. BMI <25 Patient has diagnosis of Hyperlipidemia (ICD E78)?: Yes - Visit Date of Assessment:: 12/29/20 Session #:: 10 - Cholesterol/Lipids Determine presence & major risk factors that modify LDL goal: Hypertension or hypertensive medication, Family history of premature CHD in Male < 55 years: female <65 yearsFa, Age men > 45 years; women >/= 55 years Outcomes/Goals: Pt IDs own risk factors & lifestyle modifications by Session 10, Verbalizes symptoms of angina & response by session 3., Pt independently manages Intervention/Plan: Instruct on personal lipid levels & lipid goals/NCEP guidelines, Instruct on cholesterol Referral to dietitian:: Yes - Medical Nutrition Therapy 30-day Reassessments:: Progressing - Diabetes (Other Core Measures) Diabetes Type: 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 Fasting blood glucose:: 168 Hgb A1C (4.2 -6.3): 8.5 Insulin dependent injection/pump?: Yes Non-Insulin Dependent?: Yes Do you monitor your blood sugar at home?: Yes Referral to Diabetic Clinic:: Yes Outcomes/Goals:: Able to state symptoms of, Able to state, Able to state Intervention/Plan:: Instruct on, Refer to, Instruct on 30-day Reassessments:: Progressing - Weight Mgt (Other Care) Not Applicable: No Height: 5 ft 8 in Weight:: 269 lb BMI: 40.8 Diagnosis Overweight/Obesity BMI> 30% ICD-10 E66: Yes Diagnosis High BMI/Morbid Obesity BMI> 35% ICD-10 Z68: Yes Outcomes/Goals: Pt sets, maintains & shows weight loss goal & trend during rehab Intervention/Plan: Instruct on ideal BMI & set weight loss goal w/patient, Assist pt to ID & incorporate diet changes for weight loss by S9, Refer to Structured Weight Loss program as appropriate, Encourage goal of using 250- 300dcal per session for weight loss 30 day Reassessments:: Progressing - Healthy Eating Habits Will attend diet classes:: Yes Outcomes/Goals:: Consume diet rich in vegs,fruits,whole grain/high fiber,fish,lean meat, Limit sat/trans fats,cholesterol & added salts & sugars Intervention/Plan:: Assess current eating habits 30-day Reassessments:: Progressing - Education Gave educational materials for:: Signs & symptoms of hypoglycemia, Signs & symptoms of hyperglycemia, Relate diabetes to coronary artery disease, Healthy eating Medical- 30-Day Assessment - Visit Date of Eval: 12/29/20 Session #:: 10 - Medication Compliance Preventative Medication(s):: Aspirin, Clopidogrel/P2Y12 inhibit, Statin/lipid, Beta julian H/O mental health issues: depression, anxiety, or addiction?: No Doesn?t believe in the benefits of treatment?: No Believes medications are unnecessary or harmful?: No Has a concern about medication side effects?: No Expresses concern over the cost of medications?: No Outcomes/Goals: Verbalizes medications,desired effect & common side effects @ DC, Pt self-reports following medication regimen, Keeps card in wallet w/medications listed by DC Interventions/plans: Instruct on medication effects & side effects, Review medication list w/patient every two weeks, Instruct importance of taking meds as ordered & assist problem solving 30-day Reassessments:: Progressing - Tobacco Use Tobacco Use: Non-smoker - Hypertension Hypertension Diagnosis:: Hypertension ICD-10 I10 Resting Blood Pressure:: 146/80 - Stage I even on medications [place] [employer] Hypertension Guidelines: [place] [employer] Hypertension Guidelines. Normal BP Less than 120/80. Elevated BP 120/80. Hypertension Stage 1: BP 130-139/80-89. Hypertesnion Stage 2: BP 140 or higher/90 or higher. Hypertension Crisis: BP higher than 180/120 Peak Exercise Blood Pressure:: 160/90 Outcomes/Goals: Able to verbalize/achieve optimal blood pressure <130/80, Incorporates diet changes & exercise for blood pressure control by DC Interventions/plan: Instruct on optimal blood pressure, hypertension & medications, Instruct on effects of sodium, alcohol, stress, exercise &hypertension 30 day Reassessments:: Progressing - Tobacco Cessation Referral Smoking Cessation Referral:: No Individual Education/Counseling:: No Education Schedule Given:: Yes Psychosocial - 30-Day Assess - VIsit Date of Eval: 12/29/20 Session #:: 10 Not Applicable: Yes History of Emotional Disorders: Depression - Target Goals Target Goals: Assess presence or absence of depression. Using a valid screening tool, maximizes coping skills. Positive support system - Psychosocial Test Tool Used:: PHQ-9 Questionnaire phq-9 Severity: Severity. 1-4 Minimal Depression. 5-9 Mild Depression. 10-14 Moderate Depression. 15-19 Moderately Sever Depression. 20-27 Severe Depression. Rule: - Referral to Behavioral Health PS - Interventions: Yes Attend Stress Management Classes, No Referral to Behavioral Health if PHQ-9 score >9:, No Referral to [facility], No Referral to Physician if PHQ-9 if score is 5-9: - Outcomes/Goals: See list Psychosocial Outcomes/Goals:: ID's personal stressors & 2 strategies to manage stress by discharge - Intervention/Plan: See List Interventions/Plan:: Assess stressors,coping strategies & signs of derpression on admission, Instruct/assist pt to develop coping & personal stress Mgt strategies, Instruct patient to recognize signs & symptoms of depression, Instruct patient to recog - 30-day Reassessments: 30 day Reassessments:: Progressing Patient Health Questionnaire 30-Day Re-eval Assessment 1. Little interest or pleasure in doing things: More than half the days 2. Feeling down, depressed, or hopeless: Several days 3. Trouble falling or staying asleep, or sleeping too much: Not at all 4. Feeling tired or having little energy: Not at all 5. Poor appetite or overeating: Not at all 6. Feeling bad about yourself -- or that you are a failure or have let yourself or your family down: Not at all 7. Trouble concentrating on things, such as reading the newspaper or watching television: Not at all 8. Moving or speaking so slowly that other people could have noticed. Or the opposite - being so fidgety or restless that you have been moving around a lot more than usual: Not at all 9. Thoughts that you would be better off , or of hurting yourself in some way: Not at all How difficult have these problems made it for you to do your work, take care of things at home, or get along with other people?: Somewhat difficult Total Score: 3 Self-Efficacy 30-Day Re-eval Assessment We would like to know how confident you are in doing certain activities. Please select your confidence level for:: Select your confidence level for the following using the scale 1-10 where 1 is not at all confident and 10 is totally confident. Your score is the average of all 6 responses. Fatigue: How confident are you that you can keep the fatigue caused by your disease from interfering with the things you want to do? Select Number: 9 Physical Discomfort or Pain: How confident are you that you can keep the physical discomfort or pain of your disease from interfering with the things you want to do? Select Number: 10 Emotional Distress: How confident are you that you can keep the emotional distress caused by your disease from interfering with the things you want to do? Select Number: 10 Other Symptoms or Health Problems: How confident are you that you can keep other symptoms or health problems from interfering with the things you want to do? Select Number: 10 Different Tasks and Activities: How confident are you that you can do the different tasks and activities needed to manage your health condition so as to reduce your need to see a doctor? Select Number: 10 Medication: How confident are you that you can do things other than just taking medication to reduce how much your illness affects your everyday life? Select Number: 10 Total Score:: 9
[2020-12-29 10:58] VITALS: BP 146/80; BP 160/90; BMI 40.8
== END 2021-01-07 23:59 ==
LOC: CR 14:15
PROVIDERS: PCP Family Medicine
DX: I25.10 Atherosclerotic heart disease of native coronary artery without angina pectoris (principal); Z95.5 Presence of coronary angioplasty implant and graft; E78.5 Hyperlipidemia, unspecified; E11.9 Type 2 diabetes mellitus without complications; I10 Essential (primary) hypertension
CPT/HCPCS: 93798

== ENCOUNTER 2021-02-06 14:15 | Outpatient (RCR) | payer MEDICARE, OTHER, SELFPAY ==
[2020-12-29 10:58] VITALS: BMI 40.8
[2020-12-31 10:26] VITALS: BMI 39.9
[2021-01-08 00:46] VITALS: BP 146/80; BP 160/90
--- NOTE | 2021-01-28 07:06 | CR.ITP_ITS ---
Exercise - 60-day Assessment - Visit Date of Eval: 01/28/21 Session #:: 22 - Physician Prescribed Exercise Modalities: NuStep Frequency: 3x/week for 12 weeks [36 sessions] Intensity: 60-80% of age predicted maximum heart rate reserve Current METSs:: 4.0 unchanged Target Heart Rate:: 93-112 Current RPE:: 11-12 Maximum Excercise HR:: 91 Resting Blood Pressure: 130/70 - elevated w/medication Maximum Exercise Blood Pressure: 162/76 - w/exercise EKG Type: NSR to sinus tach without ectopy. - Outcomes & Goals Goals:: Verbalizes understanding of THR, RPE & goal METS by session 6, Documents in home exercise log/reports 30 min aerobic 5 day/wk by DC, Demonstrates accurate pulse taking by DC - Intervention & Plan Exercise Program Goals: Instruct on personal THR & RPE, Instruct on MET level & personal MET goal, Show patient to take own pulse /validate performance until accurate, Instruct on home exercise - 30-day Reassessments 30 day Reassessments:: Progressing - Physical Activity Home Exercise Physical Activity - Home Exercise: Safe Exercise, Warm-up, Self-monitoring, C ool-Down, Home Exercise > 30 min Daily, Sitting Time <3 hours/daily - Outcomes & Goals Outcomes/Goals: Demonstrates correct Warm-up/exercise Cool-Down (S3) if = 2.5 METs, Verbalizes symptoms of exercise intolerance by Session 3 (S3), Demonstrate safe equipment use (S3) & follows exercise prescrition (6) - Intervention & Plan Plan/Intervention: Instruct warm-up & cool-down if exercising at > 2 METs, Instruct on symptoms of exercise intolerance & actions to take, Instruct & monitor on saf, Assess intial functional capacity & safety risk - 30-day Reassessments 30 day Reassessments:: Progressing Nutrition - 60-Day Assessment - Program Goals Nutrition Program Goals: LDL <100 optimal. 100 - 129 Near optimal. 130 - 159 Borderline High. 160 - 189 High. Total Cholesterol <200 desirable. 200 - 239 Borderline High. >/= 240 High. HDL < 40 Low >/=60 High. Triglycerides <150 desirable. <199 optimal. VlDL 5 - 40. HgbA1C <7%. BMI <25 Patient has diagnosis of Hyperlipidemia (ICD E78)?: Yes - Visit Date of Assessment:: 01/28/21 Session #:: 22 - no new labs - Cholesterol/Lipids Determine presence & major risk factors that modify LDL goal: Hypertension or hypertensive medication, Low HDL cholesterol <40 mg/dL*, Family history of premature CHD in Male < 55 years: female <65 yearsFa, Age men > 45 years; women >/= 55 years Outcomes/Goals: Pt IDs own risk factors & lifestyle modifications by Session 10, Verbalizes symptoms of angina & response by session 3., Pt independently manages Intervention/Plan: Instruct on personal lipid levels & lipid goals/NCEP guidelines, Instruct on cholesterol Referral to dietitian:: No - After speaking w/patient they declined services 30-day Reassessments:: Progressing - Diabetes (Other Core Measures) Diabetes Type: 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 Fasting blood glucose:: 244 Insulin dependent injection/pump?: Yes Non-Insulin Dependent?: Yes Do you monitor your blood sugar at home?: Yes Referral to Diabetic Clinic:: Yes Outcomes/Goals:: Able to state symptoms of, Able to state, Able to state Intervention/Plan:: Instruct on, Instruct on 30-day Reassessments:: Progressing - Weight Mgt (Other Care) Not Applicable: No Height: 5 ft 8 in Weight:: 267 lb BMI: 40.6 Diagnosis Overweight/Obesity BMI> 30% ICD-10 E66: Yes Diagnosis High BMI/Morbid Obesity BMI> 35% ICD-10 Z68: Yes Outcomes/Goals: Pt sets, maintains & shows weight loss goal & trend during rehab Intervention/Plan: Instruct on ideal BMI & set weight loss goal w/patient, Assist pt to ID & incorporate diet changes for weight loss by S9, Encourage goal of using 250-300dcal per session for weight loss 30 day Reassessments:: Not Met - Healthy Eating Habits Will attend diet classes:: Yes Outcomes/Goals:: Consume diet rich in vegs,fruits,whole grain/high fiber,fish,lean meat, Limit sat/trans fats,cholesterol & added salts & sugars Intervention/Plan:: Assess current eating habits 30-day Reassessments:: Progressing - Education Gave educational materials for:: Signs & symptoms of hypoglycemia, Signs & symptoms of hyperglycemia, Relate diabetes to coronary artery disease, Healthy eating Medical- 60-Day Assessment - Visit Date of Eval: 01/28/21 Session #:: 22 - Medication Compliance Preventative Medication(s):: Aspirin, Clopidogrel/P2Y12 inhibit, Statin/lipid, Beta julian H/O mental health issues: depression, anxiety, or addiction?: No Doesn?t believe in the benefits of treatment?: No Believes medications are unnecessary or harmful?: No Has a concern about medication side effects?: No Expresses concern over the cost of medications?: No Outcomes/Goals: Verbalizes medications,desired effect & common side effects @ DC, Pt self-reports following medication regimen, Keeps card in wallet w/medications listed by DC Interventions/plans: Instruct on medication effects & side effects, Review medication list w/patient every two weeks, Instruct importance of taking meds as ordered & assist problem solving 30-day Reassessments:: Progressing - Tobacco Use Tobacco Use: Non-smoker - Hypertension Hypertension Diagnosis:: Hypertension ICD-10 I10 Resting Blood Pressure:: 144/78 - at rest w/medications [place] [employer] Hypertension Guidelines: [place] [employer] Hypertension Guidelines. Normal BP Less than 120/80. Elevated BP 120/80. Hypertension Stage 1: BP 130-139/80-89. Hypertesnion Stage 2: BP 140 or higher/90 or higher. Hypertension Crisis: BP higher than 180/120 Peak Exercise Blood Pressure:: 162/76 - w/exercise Outcomes/Goals: Able to verbalize/achieve optimal blood pressure <130/80, Incorporates diet changes & exercise for blood pressure control by DC Interventions/plan: Instruct on optimal blood pressure, hypertension & medications, Instruct on effects of sodium, alcohol, stress, exercise &hypertension 30 day Reassessments:: Progressing - Tobacco Cessation Referral Smoking Cessation Referral:: No Individual Education/Counseling:: No Education Schedule Given:: Yes Psychosocial - 60-Day Assess - VIsit Date of Eval: 01/28/21 Session #:: 22 Not Applicable: Yes History of previous Mental disease:: No - Target Goals Target Goals: Assess presence or absence of depression. Using a valid screening tool, maximizes coping skills. Positive support system - Psychosocial Test Tool Used:: PHQ-9 Questionnaire phq-9 Severity: Severity. 1-4 Minimal Depression. 5-9 Mild Depression. 10-14 Moderate Depression. 15-19 Moderately Sever Depression. 20-27 Severe Depression. Rule: - Referral to Behavioral Health PS - Interventions: Yes Attend Stress Management Classes, No Referral to Behavioral Health if PHQ-9 score >9:, No Referral to [facility], No Referral to Physician if PHQ-9 if score is 5-9: - Outcomes/Goals: See list Psychosocial Outcomes/Goals:: ID's personal stressors & 2 strategies to manage stress by discharge - Intervention/Plan: See List Interventions/Plan:: Assess stressors,coping strategies & signs of derpression on admission, Instruct/assist pt to develop coping & personal stress Mgt strategies, Instruct patient to recognize signs & symptoms of depression, Instruct patient to recog - 30-day Reassessments: 30 day Reassessments:: Progressing Patient Health Questionnaire 60-Day Re-eval Assessment 1. Little interest or pleasure in doing things: Several days 2. Feeling down, depressed, or hopeless: Not at all 3. Trouble falling or staying asleep, or sleeping too much: Several days 4. Feeling tired or having little energy: More than half the days 5. Poor appetite or overeating: Not at all 6. Feeling bad about yourself -- or that you are a failure or have let yourself or your family down: Not at all 7. Trouble concentrating on things, such as reading the newspaper or watching television: Not at all 8. Moving or speaking so slowly that other people could have noticed. Or the opposite - being so fidgety or restless that you have been moving around a lot more than usual: Not at all 9. Thoughts that you would be better off , or of hurting yourself in some way: Not at all How difficult have these problems made it for you to do your work, take care of things at home, or get along with other people?: Somewhat difficult Total Score: 4 Self-Efficacy 60-Day Re-eval Assessment We would like to know how confident you are in doing certain activities. Please select your confidence level for:: Select your confidence level for the following using the scale 1-10 where 1 is not at all confident and 10 is totally confident. Your score is the average of all 6 responses. Fatigue: How confident are you that you can keep the fatigue caused by your disease from interfering with the things you want to do? Select Number: 9 Physical Discomfort or Pain: How confident are you that you can keep the physical discomfort or pain of your disease from interfering with the things you want to do? Select Number: 9 Emotional Distress: How confident are you that you can keep the emotional distress caused by your disease from interfering with the things you want to do? Select Number: 10 Other Symptoms or Health Problems: How confident are you that you can keep other symptoms or health problems from interfering with the things you want to do? Select Number: 10 Different Tasks and Activities: How confident are you that you can do the different tasks and activities needed to manage your health condition so as to reduce your need to see a doctor? Select Number: 10 Medication: How confident are you that you can do things other than just taking medication to reduce how much your illness affects your everyday life? Select Number: 10 Total Score:: 9
[2021-01-28 07:13] VITALS: BP 130/70; BP 144/78; BP 162/76; BMI 40.6
== END 2021-02-06 23:59 ==
LOC: CR 14:15
PROVIDERS: PCP Family Medicine
DX: Z98.61 Coronary angioplasty status (principal)
CPT/HCPCS: 93798

== ENCOUNTER 2021-03-02 14:15 | Outpatient (RCR) | payer MEDICARE, OTHER, SELFPAY ==
[2020-12-31 10:26] VITALS: BMI 39.9
[2021-01-28 07:13] VITALS: BMI 40.6
[2021-02-07 00:43] VITALS: BP 130/70; BP 144/78; BP 162/76
--- NOTE | 2021-02-27 06:56 | CR.ITP_ITS ---
Diagnosis Exercise - Final/Discharge - Visit Date of Eval: 02/27/21 Session #:: 34 - Physician Prescribed Exercise Modalities: NuStep Frequency: 3x/week for 12 weeks [36 sessions] Intensity: 60-80% of age predicted maximum heart rate reserve Current METSs:: 4.0 unchanged Target Heart Rate:: 93-112 Current RPE:: 13-14 Maximum Excercise HR:: 94 Resting Blood Pressure: 102/56 Maximum Exercise Blood Pressure: 130/64 EKG Type: NSR to sinus tach without ectopy. - Outcomes & Goals Goals:: Verbalizes understanding of THR, RPE & goal METS by session 6, Documents in home exercise log/reports 30 min aerobic 5 day/wk by DC, Demonstrates accurate pulse taking by DC - Intervention & Plan Exercise Program Goals: Instruct on personal THR & RPE, Instruct on MET level & personal MET goal, Show patient to take own pulse /validate performance until accurate, Instruct on home exercise - 30-day Reassessments 30 day Reassessments:: Met - Physical Activity Home Exercise Physical Activity - Home Exercise: Safe Exercise, Warm-up, Self-monitoring, Cool-Down, Home Exercise > 30 min Daily, Sitting Time <3 hours/daily - Outcomes & Goals Outcomes/Goals: Demonstrates correct Warm-up/exercise Cool-Down (S3) if = 2.5 METs, Verbalizes symptoms of exercise intolerance by Session 3 (S3), Demonstrate safe equipment use (S3) & follows exercise prescrition (6) - Intervention & Plan Plan/Intervention: Instruct warm-up & cool-down if exercising at > 2 METs, Instruct on symptoms of exercise intolerance & actions to take, Instruct & monitor on saf, Assess intial functional capacity & safety risk - 30-day Reassessments 30 day Reassessments:: Met Nutrition - Initial Assessment Nutrition - 30-Day Assessment Nutrition - 60-Day Assessment Nutrition - 90-Day Assessment Nutrition - Final Assessment - Program Goals Nutrition Program Goals: LDL <100 optimal. 100 - 129 Near optimal. 130 - 159 Borderline High. 160 - 189 High. Total Cholesterol <200 desirable. 200 - 239 Borderline High. >/= 240 High. HDL < 40 Low >/=60 High. Triglycerides <150 desirable. <199 optimal. VlDL 5 - 40. HgbA1C <7%. BMI <25 Patient has diagnosis of Hyperlipidemia (ICD E78)?: Yes - Visit Date of Assessment:: 02/27/21 - no updated labs drawn - Cholesterol/Lipids Determine presence & major risk factors that modify LDL goal: Hypertension or hypertensive medication, Family history of premature CHD in Male < 55 years: female <65 yearsFa, Age men > 45 years; women >/= 55 years Outcomes/Goals: Pt IDs own risk factors & lifestyle modifications by Session 10, Verbalizes symptoms of angina & response by session 3., Pt independently manages Intervention/Plan: Instruct on personal lipid levels & lipid goals/NCEP guidelines, Instruct on cholesterol Referral to dietitian:: No 30-day Reassessments:: Progressing - Diabetes (Other Core Measures) Diabetes Type: 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 Insulin dependent injection/pump?: Yes Non-Insulin Dependent?: Yes - Trulicity IM Do you monitor your blood sugar at home?: Yes Referral to Diabetic Clinic:: No Outcomes/Goals:: Able to state symptoms of, Able to state, Able to state Intervention/Plan:: Instruct on, Instruct on 30-day Reassessments:: Met - Weight Mgt (Other Care) Not Applicable: No Height: 5 ft 8 in Weight:: 266 lb BMI: 40.4 Diagnosis Overweight/Obesity BMI> 30% ICD-10 E66: Yes Diagnosis High BMI/Morbid Obesity BMI> 35% ICD-10 Z68: Yes Outcomes/Goals: Pt sets, maintains & shows weight loss goal & trend during rehab Intervention/Plan: Instruct on ideal BMI & set weight loss goal w/patient, Assi st pt to ID & incorporate diet changes for weight loss by S9, Encourage goal of using 250-300dcal per session for weight loss 30 day Reassessments:: Progressing - Healthy Eating Habits Will attend diet classes:: Yes Outcomes/Goals:: Consume diet rich in vegs,fruits,whole grain/high fiber,fish,lean meat, Limit sat/trans fats,cholesterol & added salts & sugars Intervention/Plan:: Assess current eating habits 30-day Reassessments:: Progressing - Education Gave educational materials for:: Signs & symptoms of hypoglycemia, Signs & symptoms of hyperglycemia, Relate diabetes to coronary artery disease, Healthy eating Medical - Initial Assessment Medical- 30-Day Assessment Medical- 60-Day Assessment Medical- 90-Day Assessment Medical - Final Assessment - Visit Date of Eval: 02/27/21 Session #:: 34 - Medication Compliance Preventative Medication(s):: Aspirin, Clopidogrel/P2Y12 inhibit, Statin/lipid, Beta julian H/O mental health issues: depression, anxiety, or addiction?: No Doesn?t believe in the benefits of treatment?: No Believes medications are unnecessary or harmful?: No Has a concern about medication side effects?: No Expresses concern over the cost of medications?: No Outcomes/Goals: Verbalizes medications,desired effect & common side effects @ DC, Pt self-reports following medication regimen, Keeps card in wallet w/medications listed by DC Interventions/plans: Instruct on medication effects & side effects, Review medication list w/patient every two weeks, Instruct importance of taking meds as ordered & assist problem solving 30-day Reassessments:: Met - Tobacco Use Tobacco Use: Non-smoker - Hypertension Hypertension Diagnosis:: Hypertension ICD-10 I10 Resting Blood Pressure:: 102/56 [place] [employer] Hypertension Guidelines: [place] [employer] Hypertension Guidelines. Normal BP Less than 120/80. Elevated BP 120/80. Hypertension Stage 1: BP 130-139/80-89. Hypertesnion Stage 2: BP 140 or higher/90 or higher. Hypertension Crisis: BP higher than 180/120 Peak Exercise Blood Pressure:: 130/64 Outcomes/Goals: Able to verbalize/achieve optimal blood pressure <130/80, Incorporates diet changes & exercise for blood pressure control by DC Interventions/plan: Instruct on optimal blood pressure, hypertension & medications, Instruct on effects of sodium, alcohol, stress, exercise &hypertension 30 day Reassessments:: Met - Tobacco Cessation Referral Smoking Cessation Referral:: No Individual Education/Counseling:: No Education Schedule Given:: Yes Psychosocial - Initial Assess Psychosocial - 30-Day Assess Psychosocial - 60-Day Assess Psychosocial - 90-Day Assess Psychosocial - Final Assessmen - VIsit Date of Eval: 02/27/21 Session #:: 34 Not Applicable: Yes History of previous Mental disease:: No - Psychosocial Test Tool Used:: [employer] QOL Cardiac, PHQ-9 Questionnaire phq-9 Severity: Severity. 1-4 Minimal Depression. 5-9 Mild Depression. 10-14 Moderate Depression. 15-19 Moderately Sever Depression. 20-27 Severe Depression. Rule: - Referral to Behavioral Health PS - Interventions: Yes Attend Stress Management Classes, No Referral to Behavioral Health if PHQ-9 score >9:, No Referral to [facility], No Referral to Physician if PHQ-9 if score is 5-9: - Outcomes/Goals: See list Psychosocial Outcomes/Goals:: ID's personal stressors & 2 strategies to manage stress by discharge - Intervention/Plan: See List Interventions/Plan:: Assess stressors,coping strategies & signs of derpression on admission, Instruct/assist pt to develop coping & personal stress Mgt strategies, Instruct patient to recognize signs & symptoms of depression, Instruct patient to recog - 30-day Reassessments: 30 day Reassessments:: Met Patient Health Questionnaire Discharge Assessment 1. Little interest or pleasure in doing things: Not at all 2. Feeling down, depressed, or hopeless: Not at all 3. Trouble falling or staying asleep, or sleeping too much: Several days 4. Feeling tired or having little energy: Several days 5. Poor appetite or overeating: Not at all 6. Feeling bad about yourself -- or that you are a failure or have let yourself or your family down: Not at all 7. Trouble concentrating on things, such as reading the newspaper or watching television: Not at all 8. Moving or speaking so slowly that other people could have noticed. Or the opposite - being so fidgety or restless that you have been moving around a lot more than usual: Not at all 9. Thoughts that you would be better off , or of hurting yourself in some way: Not at all How difficult have these problems made it for you to do your work, take care of things at home, or get along with other people?: Somewhat difficult Total Score: 2 MONIE-Q SV Test - Statements CAD is a disease of the arteries in the heart: False Examples of risk factors for heart disease: True Angina is chest pain or discomfort: True The benefits of resistance training include: True Eating more meat and dairy products: False Anti-platelet medications such as aspirin are important: True The only effective way to manage stress: False An exercise warm-up slowly increases heart rate: True Prepared, processed foods usually have high sodium: True Depression is common after a heart attack: True The statin medications lower cholesterol: True To control blood pressure, lower the amount of sodium: True If someone gets chest discomfort during walking: False Transfats are partially hydrogenated vegetable oils: True Sleep apnea that is not treated increases the risk: True To control cholesterol, one should become a vegetarian: False Someone knows if he/she is exercising at the right level: True Diabetes cannot be prevented with exercise & health eating: False Stress is a large risk for heart attack: True A diet that can help lower blood pressure is rich in: True - Total Score Total Correct Responses: 19 Self-Efficacy Discharge Assessment We would like to know how confident you are in doing certain activities. Please select your confidence level for:: Select your confidence level for the following using the scale 1-10 where 1 is not at all confident and 10 is totally confident. Your score is the average of all 6 responses. Fatigue: How confident are you that you can keep the fatigue caused by your disease from interfering with the things you want to do? Select Number: 9 Physical Discomfort or Pain: How confident are you that you can keep the physical discomfort or pain of your disease from interfering with the things you want to do? Select Number: 9 Emotional Distress: How confident are you that you can keep the emotional distress caused by your disease from interfering with the things you want to do? Select Number: 10 Other Symptoms or Health Problems: How confident are you that you can keep other symptoms or health problems from interfering with the things you want to do? Select Number: 10 Different Tasks and Activities: How confident are you that you can do the different tasks and activities needed to manage your health condition so as to reduce your need to see a doctor? Select Number: 10 Medication: How confident are you that you can do things other than just taking medication to reduce how much your illness affects your everyday life? Select Number: 10 Total Score:: 9 Nutrition Survey - Nutrition Survey Discharge Have you lost >10 lbs over the past 2 months without trying?: No Are you following a special diet at home for diabetes, low fat, or low salt?: Yes Are you interested in meeting with a dietitian for help understanding your diet?: No Do you eat less than 3 meals a day?: No Do you eat fatty meats (mcclellan, sausage, ribs, etc), fried foods, desserts, large amounts of salad dressings, margarine, butter, or cheese most days?: No Do you have food allergies? [Enter types in comment field]: No Do you eat in restaurants more than 3 times a week?: No Do you season food with salt, seasoning salt, or garlic salt?: No Do you used canned, boxed, frozen meals, or soups, seasoning packets?: No Total Score:: 1
[2021-02-27 07:06] VITALS: BP 102/56; BP 130/64; BMI 40.4
== END 2021-03-09 23:59 ==
LOC: CR 14:15
PROVIDERS: PCP Family Medicine
DX: Z98.61 Coronary angioplasty status (principal)
CPT/HCPCS: 93798

== ENCOUNTER 2021-03-08 12:07 | Emergency (ER) | payer MEDICARE, OTHER, SELFPAY ==
[2020-12-31 10:26] VITALS: BMI 39.9
[2021-02-27 07:06] VITALS: BMI 40.4
[2021-03-08 12:09] VITALS: BP 118/63; PULSE 85; RESP 17; TEMP 36.6; O2SAT 95; BMI 40.3
[2021-03-08 14:03] LABS: Bacteria 0 SEEN /hpf (None Seen); Mucous, Urine 0 SEEN /hpf (<or=2+); Red Blood Cells-Urine 0 SEEN /hpf (0-5)
[2021-03-08 14:05] LABS: Color, Urine Yellow (Yellow); Glucose, Dipstick Normal (Normal); Ketone-Dipstick Negative (Negative); Leukocyte Esterase-Dipstick 100 /ul (Negative); Nitrite-Dipstick Negative (Negative); Occult Blood-Urine Negative /ul (Negative); Protein-Dipstick 15 mg/dl (Negative); Specific Gravity, Urine 1.015 (1.002-1.030); Urine Bilirubin Dipstick Negative (Negative); Urine Clarity Clear (Clear); Urine Urobilinogen Normal (Normal)
[2021-03-08 14:17] LABS: Squamous Epithelial Cells - UA 0-5 SEEN /hpf (0-5); White Blood Cells 5-10 SEEN /hpf (0-5)
[2021-03-08 14:27] VITALS: BP 91/58; PULSE 73; RESP 18; O2SAT 96
--- NOTE | 2021-03-08 15:02 | EDS_ITS ---
HPI History of Present Illness Chief Complaint: Complaint Informant: patient Pain Onset: Days Context: Gradual Onset Timing: Continuous Worsened by: Nothing Relieved by: Nothing Narrative Narrative: Patient presents with dysuria and difficulty urinating today. Patient was recently treated for a urinary tract infection. Patient followed up at the [facility] urgent care today. Patient was unable to produce a urine there and the patient was referred to the emergency department. Patient admits to pain in his right flank. Patient does states the pain is sharp. Patient denies any fevers or chills. Patient denies any nausea or vomiting. [facility] Medical History Atherosclerotic heart disease of [place] coronary artery without angina pectoris DM type 2 (diabetes mellitus, type 2) Essential hypertension Hyperlipidemia NSTEMI (non-ST elevated myocardial infarction) Obesity Presence of stent in coronary artery (10/20/19) Home Medications aspirin 81 mg PO QODAY 10/19/19 [History Last Taken 07/25/20] cholecalciferol (vitamin D3) 1,000 unit PO DAILY 10/19/19 [History Last Taken 10/19/19] coenzyme Q10 10 mg PO DAILY 10/19/19 [History Last Taken 10/19/19] docusate sodium 100 mg PO DAILY 10/19/19 [History Last Taken 10/19/19] folic acid 0.4 mg PO DAILY 10/19/19 [History Last Taken 10/19/19] furosemide 40 mg PO BID 10/19/19 [History Last Taken 10/19/19] [id number] 1 cap PO DAILY 10/19/19 [History Last Taken 10/19/19] metformin 1,000 mg PO DAILY 10/19/19 [History Last Taken 10/19/19] multivitamin with minerals 1 ea PO DAILY 10/19/19 [History Last Taken 10/19/19] pravastatin 80 mg PO DAILY 10/19/19 [History Last Taken 10/19/19] acetaminophen 500 - 1,000 mg PO Q6H PRN PRN 11/01/19 [History Last Taken Unknown] insulin NPH isoph U-100 human 40 unit SQ QHS 11/01/19 [History Last Taken Unknown] insulin NPH isoph U-100 human 48 unit SQ BREAKFAST 11/01/19 [History Last Taken Unknown] carvedilol 6.25 mg tablet 6.25 mg PO BID #180 tab 04/02/20 [Rx Last Taken 07/25/20] clopidogrel 75 mg tablet 75 mg PO DAILY #90 tab 04/02/20 [Rx Last Taken 07/25/20] garlic 1,000 mg capsule 1,000 mg PO QPC 07/02/20 [History Last Taken Unknown] potassium chloride 10 mEq tablet,extended release 20 meq PO DAILY 07/02/20 [History Last Taken Unknown] tamsulosin 0.4 mg capsule 0.4 mg PO QHS 07/02/20 [History Last Taken Unknown] albuterol sulfate 1 - 2 puff INHALATION Q6H PRN PRN 12/01/20 [History Last Taken Unknown] docusate sodium 100 mg PO BID 12/01/20 [History Last Taken Unknown] oxybutynin chloride 10 mg PO DAILY 12/01/20 [History Last Taken Unknown] cranberry 500 mg capsule 500 mg PO BID 12/31/20 [History Last Taken Unknown] isosorbide mononitrate 30 mg tablet,extended release 24 hr 30 mg PO QAM #90 tab let 01/08/21 [Rx Last Taken Unknown] cephalexin 500 mg PO Q6 #12 capsule 03/08/21 [Rx Last Taken Unknown] Allergy/AdvReac Type Severity Reaction Status Date / Time lisinopril AdvReac cough Verified 03/08/21 12:08 Surgical History History of left heart catheterization (10/20/19) Presence of coronary angioplasty implant and graft (~10/20/19) Social History Smoking Status: Never smoker ROS ROS ED Constitutional Constitutional ED: Denies chills or fever(s) Eyes Eyes: Denies blurry vision or change in vision ENT ENT ED: Denies rhinorrhea or sore throat Cardiovascular Cardiovascular: Denies chest pain or palpitations Respiratory/Chest Respiratory/Chest: Denies cough or dyspnea Gastrointestinal Gastrointestinal: Denies nausea or vomiting Genitourinary Genitourinary ED: Denies dysuria or hematuria Musculoskeletal Musculoskeletal: Reports back pain and neck pain Integumentary Denies abscess or rash Neurologic Neurologic: Denies headache(s) or weakness Allergic/Immunologic Allergic/Immunologic ED: Denies mouth swelling or urticaria EXAM Physical Exam Const Vital Signs: 03/08/21 12:09 03/08/21 14:27 Temperature 97.9 F Temperature Source Temporal Pulse Rate 85 73 Respiratory Rate 17 18 Blood Pressure 118/63 91/58 L Blood Pressure Mean 81 69 Pulse Ox 95 96 Oxygen Delivery Method Room Air Room Air Positive well nourished, well developed and obese General Appearance ED: well developed Nutritional Appearance: obese Neck supple and no JVD Resp normal respiratory effort and clear to auscultation bilaterally Cardio regular rate and regular rhythm GI non-tender and non-distended Auscultation: normoactive bowel sounds Palpation: soft Bladder / Kidney Exam: CVA tenderness right (Mild right CVA tenderness) Extremity normal to inspection General Extremety ED: Negative for edema or tenderness General Extremity: Negative for edema Neuro oriented x3, CN's II-XII intact bilaterally, no focal motor deficits and no sensory deficits noted Sensorium / Orientation: alert Psych mental status grossly normal MDM MDM MDM Narrative Medical decision making narrative: Urinalysis was obtained. There is leukocyte esterase of 100. There are 5-10 white blood cells. Patient is able to urinate without difficulty. Patient was advised of his findings. Patient was given a prescription for Keflex. Patient was given his first dose here. Patient was instructed to follow-up with his primary care physician in 3 to 5 days. Patient understood and was agreeable with the plan. All questions were answered. Lab Data Attestation: I reviewed the patient's lab results. Labs: Laboratory Results - last 24 hr 03/08/21 13:55 Urine Color Yellow Urine Clarity Clear Urine pH 6.0 Ur Specific [place] 1.015 Urine Protein 15 H Urine Glucose (UA) Normal Urine Ketones Negative Urine Occult Blood Negative Urine Nitrite Negative Urine Bilirubin Negative Urine Urobilinogen Normal Ur Leukocyte Esterase 100 H Urine RBC 0 SEEN Urine WBC 5-10 SEEN Ur Squamous Epith Cells 0-5 SEEN Urine Bacteria 0 SEEN Urine Mucus 0 SEEN Discharge Plan Triage Chief Complaint: Complaint ED Provider: Coleman Molina Dx/Rx/DC Orders Clinical Impression: Urinary tract infection Instructions: ED Bladder Infection, Male (Adult) Prescriptions: New cephalexin [cephalexin] 500 MG capsule 500 mg PO Q6 Qty: 12 RF: 0 No Action potassium chloride 10 mEq tablet extended release 20 meq PO DAILY RF: 0 tamsulosin 0.4 mg capsule 0.4 mg PO QHS RF: 0 garlic 1,000 mg capsule 1,000 mg PO QPC RF: 0 cranberry 500 mg capsule 500 mg PO BID RF: 0 coenzyme Q10 10 MG capsule 10 mg PO DAILY RF: 0 aspirin 81 MG tablet,delayed release (DR/EC) 81 mg PO QODAY RF: 0 pravastatin 80 MG tablet 80 mg PO DAILY RF: 0 docusate sodium 100 MG capsule 100 mg PO DAILY RF: 0 multivitamin with minerals 1 EACH tablet 1 ea PO DAILY RF: 0 metformin 1,000 MG tablet extended release 24hr 1,000 mg PO DAILY RF: 0 cholecalciferol (vitamin D3) 1,000 UNIT tablet 1,000 unit PO DAILY RF: 0 [id number] 1 EACH capsule 1 cap PO DAILY RF: 0 furosemide 40 MG tablet 40 mg PO BID RF: 0 folic acid 0.4 MG tablet 0.4 mg PO DAILY RF: 0 acetaminophen 500 MG tablet 500 - 1,000 mg PO Q6H PRN PRN (Reason: Pain Or Fever) RF: 0 insulin NPH isoph U-100 human 100 UNIT/ML suspension 40 unit SQ QHS RF: 0 insulin NPH isoph U-100 human 100 UNIT/ML suspension 48 unit SQ BREAKFAST RF: 0 oxybutynin chloride 10 MG tablet extended release 24hr 10 mg PO DAILY RF: 0 docusate sodium 100 MG capsule 100 mg PO BID RF: 0 albuterol sulfate 1 PUFF inhaler 1 - 2 puff INHALATION Q6H PRN PRN (Reason: Dyspnea/Wheezing/Sob) RF: 0 carvedilol 6.25 mg tablet 6.25 mg PO BID Qty: 180 RF: 3 clopidogrel 75 mg tablet 75 mg PO DAILY Qty: 90 RF: 3 isosorbide mononitrate 30 mg tablet extended release 24 hr 30 mg PO QAM Qty: 90 RF: 4 Primary Care Provider: Paulo Nguyen Referrals: Paulo Nguyen MD [Primary Care Provider] - 3-5 Days Disposition Disposition: Home, self care
[2021-03-08] MEDS: Cephalexin 500 MG Capsule PO (15:20)
[2021-03-08 15:21] VITALS: BP 123/72; PULSE 75; RESP 24; O2SAT 95
== END 2021-03-08 15:36 | disposition home or self-care (01) ==
PROVIDERS: Emergency Provider Emergency Medicine; PCP Family Medicine
DX: N39.0 Urinary tract infection, site not specified (principal); I25.10 Atherosclerotic heart disease of native coronary artery without angina pectoris; E11.9 Type 2 diabetes mellitus without complications; I10 Essential (primary) hypertension; E78.5 Hyperlipidemia, unspecified; E66.9 Obesity, unspecified; Z79.4 Long term (current) use of insulin; Z79.899 Other long term (current) drug therapy
CPT/HCPCS: 81001; 99283

== ENCOUNTER → 2021-04-20 09:51 | Outpatient (CLI) | payer MEDICARE, OTHER, SELFPAY ==
[2021-02-27 07:06] VITALS: BMI 40.4
[2021-04-08 09:17] VITALS: BMI 38.9
--- NOTE | 2021-04-20 09:53 | ECHOCS_ITS ---
Reason For Study: F/U pericardial effusion and decreased EF. Procedure This was a 2D Doppler, Color Flow transthoracic echocardiogram. The study was technically difficult. Due to body habitus. Contrast injection was performed. Exam performed in department. Left Ventricle Normal LV size. Segmental dysfunction with preserved ejection fraction (see wall motion). The estimated ejection fraction is 55 %. Diastolic function is indeterminate. Mid-Anterior : Hypokinetic. Mid-Lateral : Hypokinetic. Mid-Posterior: Hypokinetic. Mid-Inferior: Hypokinetic. Anterior [place] : Hypokinetic. Inferior [place] : Hypokinetic. Lateral [place] : Hypokinetic. Right Ventricle Normal RV size. Normal systolic function. Atria The left atrium is moderately enlarged. Normal right atrium. No doppler evidence for ASD. Mitral Valve There is moderate mitral annular calcification. Extension of the mitral annular calcification on the base of the posterior mitral valve leaflet. Trivial mitral valve insufficiency. Tricuspid Valve Normal tricuspid valve. Trivial tricuspid valve insufficiency. Unable to estimate RV systolic pressure/pulmonary artery pressure due to technically difficult study. Aortic Valve The aortic valve leaflets were not well visualized, however, based upon the 2D echocardiographic images obtained there appears to be mild focal thickening/calcification. Pulmonic Valve The pulmonic valve is not well visualized. Great Vessels Normal sized aortic root. Pericardium/Pleural Small pericardial effusion. There are no echocardiographic indications of cardiac tamponade. Medication 22 gauge I.V. with prn adaptor inserted into right arm. Diluted definity 4.0ml given slow IV push to enhance endocardial definition. MMode/2D Measurements & Calculations RVDd: 2.6 cm Ao root diam: 3.7 cm LAV(MOD-bp): 76.7 ml LAV(MOD-bp) Indexed: 33.9 ml/m2 LAV(MOD-sp2): 64.2 ml LAV(MOD-sp4): 87.4 ml LA dimension(2D): 5.4 cm LA A4 area: 26.2 cm2 Time Measurements MV dec time: 0.29 sec Doppler Measurements & Calculations MV E max david: 67.9 cm/sec Lat Peak E' David: 7.7 cm/sec Med Peak E' David: 7.2 cm/sec MV A max david: 102.0 cm/sec E/E' lat: 8.8 E/E' med: 9.4 MV E/A: 0.67 Ao V2 max: 125.9 cm/sec LV V1 max: 73.6 cm/sec PA V2 max: 63.3 cm/sec Ao max P.3 mmHg LV V1 max P.2 mmHg Ao V2 mean: 82.3 cm/sec LV V1 mean P.0 mmHg Ao mean P.0 mmHg LV V1 mean: 48.5 cm/sec Ao V2 VTI: 20.3 cm LV V1 VTI: 12.7 cm ECHO/Echo Complete W/ Contrast Interpretation Summary The study was technically difficult. Contrast injection was performed. Segmental dysfunction with preserved ejection fraction (see wall motion). The estimated ejection fraction is 55 %. The left atrium is moderately enlarged. There is moderate mitral annular calcification. Extension of the mitral annular calcification on the base of the posterior mitr al valve leaflet. Trivial mitral valve insufficiency. Trivial tricuspid valve insufficiency. Small pericardial effusion. There are no echocardiographic indications of cardiac tamponade. Unable to estimate RV systolic pressure/pulmonary artery pressure due to techni yenifer difficult study. Diastolic function is indeterminate. Ordering Physician: Felicita Truong Referring Physician: Franklin Nguyen Performed By: Marisol Ireland, SARAH, RVT
== END ==
PROVIDERS: PCP Family Medicine; Referring Provider Physician Assistant Medical; Visit Provider Physician Assistant Medical
DX: I25.10 Atherosclerotic heart disease of native coronary artery without angina pectoris (principal)
CPT/HCPCS: 93306; Q9957; C8929; J3490

== ENCOUNTER → 2021-05-13 08:07 | Outpatient (CLI) | payer MEDICARE, OTHER, SELFPAY ==
[2021-02-27 07:06] VITALS: BMI 40.4
[2021-05-06 09:15] VITALS: BMI 38.7
--- NOTE | 2021-05-13 08:08 | MRI_ITS ---
STUDY: MRI LUMBAR SPINE WITHOUT CONTRAST REASON FOR EXAM: Male, 76 years old. RIGHT SIDED LOW BACK PAIN, PRIOR SURGERY 20+ YEARS AGO TECHNIQUE: Standardized fat and water weighted pulse sequences were obtained in the sagittal and axial planes. COMPARISON: None FINDINGS: T12-L1: Normal endplates. Normal disc height, hydration and morphology. Normal bilateral facet joints. Normal central canal and bilateral lateral recesses. Normal bilateral intervertebral neural foramina. Normal lumbar lordosis. Mild dextroscoliosis centered at L3. Normal conus medullaris that terminates at the L1. L1-2: Normal endplates. Normal disc height, hydration and morphology. Normal bilateral facet joints. Normal central canal and bilateral lateral recesses. Normal bilateral intervertebral neural foramina. L2-3: Mild bilateral facet hypertrophy and severe ligament flavum hypertrophy. Moderate broad disc protrusion produces moderate spinal stenosis with moderate bilateral lateral recess stenosis with abutment of the L3 nerve roots bilaterally and moderate bilateral neural foraminal stenosis with abutment of the L2 nerve root laterally. L3-4: Mild bilateral facet hypertrophy and moderate ligament flavum hypertrophy. Large broad disc protrusion produces severe spinal stenosis with severe bilateral lateral recess stenosis with effacement of the L4 nerve roots bilaterally and moderate bilateral neural foraminal stenosis and abutment of the L3 nerve roots bilaterally. L4-5: Mild bilateral facet hypertrophy and ligament flavum hypertrophy. Small capsular synovial cyst of the left facet joint extends posteriorly posterior to the thecal sac without incident. Mild broad disc protrusion produces mild spinal stenosis with mild bilateral lateral recess stenosis and mild bilateral neural foraminal stenosis. L5-S1: Mild bilateral facet hypertrophy and ligament flavum hypertrophy. 2 mm retrolisthesis of L5 on S1 with a mild broad disc protrusion produces mild spinal stenosis with moderate bilateral neural foraminal stenosis with abutment of the L5 nerve roots bilaterally. Normal visualized sacral ala. Normal visualized paraspinous soft tissue structures. MRI/Spine Lumbar (Routine) IMPRESSION: Mild dextro scoliosis and diffuse degenerative disc disease as described above. Electronically Signed: Dominic Mendoza MD at 14:03 EDT Tel , Service support ,
== END ==
PROVIDERS: PCP Family Medicine; Referring Provider Orthopaedic Surgery; Visit Provider Orthopaedic Surgery
DX: M48.061 Spinal stenosis, lumbar region without neurogenic claudication (principal); M47.26 Other spondylosis with radiculopathy, lumbar region
CPT/HCPCS: 72148

== ENCOUNTER 2021-08-11 16:17 | Emergency (ER) | payer MEDICARE, OTHER, SELFPAY ==
[2021-02-27 07:06] VITALS: BMI 40.4
[2021-08-11] VITALS (9 sets, daily range): BP systolic 119–149; BP diastolic 57–81; PULSE 56–72; RESP 14–19; TEMP 36.1; O2SAT 87–100; BMI 36.9
--- NOTE | 2021-08-11 17:08 | ED.VIS.BACK ---
HPI History of Present Illness Chief Complaint: Back Informant: patient Onset/Context/Timing Onset: - (Acute on chronic) Current Severity: Moderate Maximum Severity: Severe Associated Symptoms Associated Symptoms: Radiation to Right Leg and Radiation to Left Leg Narrative Narrative: Patient presents via EMS secondary to low back pain. He has a history of chronic back pain and has known spinal stenosis. He has been seen by Dr. Shearer, spinal surgery and is followed by Dr. Stafford, pain management. Patient states a couple weeks ago he had a procedure by Dr. Delgado which burned the nerves on the right lower back. He states he felt better for a few days but now has worse pain with radiation down both legs. This is been ongoing for the last 7 or 8 days. He called his doctor who advised him to come to the emergency room at that time but he has delayed until today. No fever or chills. No problems with bowel or bladder control. Patient is currently on buprenorphine patch as well as [place] twice daily. [facility] Medical History Atherosclerotic heart disease of [place] coronary artery without angina pectoris DM type 2 (diabetes mellitus, type 2) Essential hypertension Hyperlipidemia NSTEMI (non-ST elevated myocardial infarction) Obesity Pericardial effusion Presence of stent in coronary artery (10/20/19) Home Medications cholecalciferol (vitamin D3) 1,000 unit PO DAILY 10/19/19 [History Last Taken 10/19/19] folic acid 0.4 mg PO DAILY 10/19/19 [History Last Taken 10/19/19] metformin 1,000 mg PO DAILY 10/19/19 [History Last Taken 10/19/19] multivitamin with minerals 1 ea PO DAILY 10/19/19 [History Last Taken 10/19/19] acetaminophen 500 - 1,000 mg PO Q6H PRN PRN 11/01/19 [History Last Taken Unknown] tamsulosin 0.4 mg capsule 0.4 mg PO QHS 07/02/20 [History Last Taken Unknown] albuterol sulfate 1 - 2 puff INHALATION Q6H PRN PRN 12/01/20 [History Last Taken Unknown] oxybutynin chloride 10 mg PO DAILY 12/01/20 [History Last Taken Unknown] aspirin 81 mg tablet,delayed release 81 mg PO DAILY tab 04/08/21 [History Last Taken Unknown] furosemide 40 mg tablet 40 mg PO BID tab 04/08/21 [History Last Taken Unknown] krill oil 500 mg capsule 500 mg PO DAILY cap 04/08/21 [History Last Taken Unknown] losartan 25 mg tablet 25 mg PO DAILY tab 04/08/21 [History Last Taken Unknown] potassium chloride 10 mEq tablet,extended release 20 meq PO BID tab 04/08/21 [History Last Taken Unknown] zinc gluconate 50 mg tablet 100 mg PO DAILY tab 04/08/21 [History Last Taken Unknown] carvedilol 6.25 mg tablet 6.25 mg PO BID tab 05/15/21 [History Last Taken Unknown] clopidogrel 75 mg tablet 75 mg PO DAILY tab 05/15/21 [History Last Taken Unknown] dulaglutide 1.5 mg/0.5 mL subcutaneous pen injector 0.75 mg SUBCUT QWEEK ml 05/15/21 [History Last Taken Unknown] pravastatin 80 mg tablet 80 mg PO DAILY 05/15/21 [History Last Taken Unknown] apple cider vinegar 500 mg tablet 500 mg PO DAILY tab 08/06/21 [History Last Taken Unknown] buprenorphine 10 mcg/hour weekly transdermal patch 1 patch TRANSDERMAL Q7D 08/06/21 [History Last Taken Unknown] docusate sodium 100 mg capsule 100 mg PO TID cap 08/06/21 [History Last Taken Unknown] hydrocodone-acetaminophen 5-325mg 5mg-325mg 1 tab PO BID PRN tab 08/06/21 [History Last Taken Unknown] insulin glargine 100 unit/mL (3 mL) subcutaneous pen 20 unit SUBCUT BID ml 08/06/21 [History Last Taken Unknown] loratadine 10 mg tablet 10 mg PO DAILY PRN 08/06/21 [History Last Taken Unknown] lidocaine [Lidoderm] 1 patch TOPICAL DAILY #6 ea 08/11/21 [Rx Last Taken Unknown] prednisone 40 mg PO DAILY #6 tab 08/11/21 [Rx Last Taken Unknown] Allergy/AdvReac Type Severity Reaction Status Date / Time lisinopril AdvReac cough Verified 08/11/21 16:22 Surgical History History of left heart catheterization (10/20/19) Presence of coronary angioplasty implant and graft (~10/20/19) Social History Smoking Status: Never smoker alcohol intake: current alcohol intake frequency: a few times a month Alcohol type: beer substance use type: does not use caffeine: No ROS ROS ED Constitutional Constitutional ED: Denies chills or fever(s) Eyes Eyes: Denies change in vision ENT ENT ED: Denies sore throat Cardiovascular Cardiovascular: Denies chest pain Respiratory/Chest Respiratory/Chest: Denies cough or dyspnea Gastrointestinal Gastrointestinal: Denies abdominal pain, diarrhea, nausea or vomiting Genitourinary Genitourinary ED: Denies dysuria Musculoskeletal Musculoskeletal: Reports back pain Integumentary Denies rash Neurologic Neurologic: Denies headache(s) or weakness Allergic/Immunologic Allergic/Immunologic ED: Denies urticaria EXAM Physical Exam Const Vital Signs: 08/11/21 16:17 08/11/21 17:48 08/11/21 19:00 Temperature 97.0 F L Temperature Source Temporal Pulse Rate 72 65 Respiratory Rate 16 14 Blood Pressure 119/77 Blood Pressure Mean 91 Pulse Ox 95 98 99 Oxygen Delivery Method Room Air Nasal Cannula Nasal Cannula Oxygen Flow Rate (L/min) 2 2 08/11/21 19:01 08/11/21 19:11 08/11/21 19:12 Temperature Temperature Source Pulse Rate 59 L Respiratory Rate 17 Blood Pressure 129/66 H Blood Pressure Mean 87 Pulse Ox 100 100 99 Oxygen Delivery Method Nasal Cannula Nasal Cannula Room Air Oxygen Flow Rate (L/min) 1 1 08/11/21 19:17 08/11/21 19:56 08/11/21 21:11 Temperature Temperature Source Pulse Rate 56 L 61 70 Respiratory Rate 16 19 H Blood Pressure 122/57 H 146/75 H 149/81 H Blood Pressure Mean 78 98 103 Pulse Ox 98 100 98 Oxygen Delivery Method Room Air Room Air Oxygen Flow Rate (L/min) Positive well nourished and well developed General Appearance ED: well developed Eyes PERRL and EOMs intact bilaterally Neck supple Resp normal respiratory effort and clear to auscultation bilaterally Cardio regular rate and regular rhythm GI normal to inspection, nondistended, normoactive bowel sounds, soft to palpation and non-tender Back/Spine normal to inspection Back/Spine Narrative: Mild tenderness over the low lumbar spine, midline as well as paraspinals. Injection site noted and is clean and nontender. He has a few linear abrasions around the left flank from scratching. No sign of infection. Extremity normal to inspection Extremity Narrative: 2+ edema bilateral lower extremities, symmetric. General Extremety ED: Yes edema General Extremity: edema Neuro oriented x3 Neuro Narrative: 1+ bilateral patellar reflexes. Good sensation and strong distal pulses. Sensorium / Orientation: alert MDM MDM MDM Narrative Medical decision making narrative: Patient was given 4 mg of morphine and 4 mg of Zofran. Patient was also given p.o. prednisone. With no new injury I do not feel repeat imaging is needed. Lab Data Labs: Laboratory Results - last 24 hr 08/11/21 08/11/21 19:50 19:50 WBC 7.5 RBC 4.18 L Hgb 13.9 Hct 40.9 MCV 97.8 H MCH 33.3 H MCHC 34.0 RDW Std Deviation 49.1 H RDW Coeff of Susan 13.7 Plt Count 182 MPV 10.0 Immature Gran % (Auto) 0.400 Neut % (Auto) 71.0 H Lymph % (Auto) 17.3 L Gibson % (Auto) 7.8 Eos % (Auto) 3.1 Baso % (Auto) 0.4 Absolute Neuts (auto) 5.3 Absolute Lymphs (auto) 1.29 Nucleated RBC % 0 Sodium 138 Potassium 4.2 Chloride 104 Carbon Dioxide 31.0 Anion Gap 3 L BUN 22 H Creatinine 1.49 H Estim Creat Clear Calc 39.53 Est GFR (MDRD) Af Amer 59 L Est GFR (MDRD) Non-Af 48 L BUN/Creatinine Ratio 14.8 Glucose 132 H Calcium 9.3 Treatment and Re-Evaluation Comments:: In spite of being on chronic narcotics patient did become quite sedated with the morphine. He was able to sleep briefly here. When nursing staff got him up he had difficulty even turning to sit on the side the bed secondary to back pain. At that time blood work was obtained due to possible admission and he was given 15 mg of Toradol. At this time patient is able to get up and sit at bedside. He feels comfortable with discharge to home. He will continue his chronic pain medication at home. I will also give him a burst of steroids and Lidoderm patches. Discharge Plan Triage Chief Complaint: Back ED Provider: Vane Conner Dx/Rx/DC Orders Clinical Impression: Back pain Instructions: ED Back and Neck Pain, General Prescriptions: New prednisone 20 mg tablet 40 mg PO DAILY Qty: 6 RF: 0 lidocaine [Lidoderm] 5 % adhesive patch,medicated 1 patch topical DAILY Qty: 6 RF: 0 No Action tamsulosin 0.4 mg capsule 0.4 mg PO QHS RF: 0 potassium chloride 10 mEq tablet extended release 20 meq PO BID RF: 0 krill oil 500 mg capsule 500 mg PO DAILY RF: 0 zinc gluconate 50 mg tablet 100 mg PO DAILY RF: 0 losartan 25 mg tablet 25 mg PO DAILY RF: 0 furosemide 40 mg tablet 40 mg PO BID RF: 0 Trulicity 1.5 mg/0.5 mL pen injector 0.75 mg subcut QWEEK RF: 0 apple cider vinegar 500 mg tablet 500 mg PO DAILY RF: 0 hydrocodone-acetaminophen 5-325 mg tablet 1 tab PO BID PRNRF: 0 Basaglar KwikPen U-100 Insulin 100 unit/mL (3 mL) insulin pen 20 unit subcut BID RF: 0 loratadine 10 mg tablet 10 mg PO DAILY PRNRF: 0 buprenorphine [Butrans] 10 mcg/hour patch weekly 1 patch transdermal Q7D RF: 0 carvedilol 6.25 mg tablet 6.25 mg PO BID RF: 0 clopidogrel 75 mg tablet 75 mg PO DAILY RF: 0 multivitamin with minerals 1 EACH tablet 1 ea PO DAILY RF: 0 metformin 1,000 MG tablet extended release 24hr 1,000 mg PO DAILY RF: 0 cholecalciferol (vitamin D3) 1,000 UNIT tablet 1,000 unit PO DAILY RF: 0 folic acid 0.4 MG tablet 0.4 mg PO DAILY RF: 0 aspirin 81 mg tablet,delayed release (DR/EC) 81 mg PO DAILY RF: 0 pravastatin 80 mg tablet 80 mg PO DAILY RF: 0 docusate sodium 100 mg capsule 100 mg PO TID RF: 0 acetaminophen 500 MG tablet 500 - 1,000 mg PO Q6H PRN PRN (Reason: Pain Or Fever) RF: 0 oxybutynin chloride 10 MG tablet extended release 24hr 10 mg PO DAILY RF: 0 albuterol sulfate 1 PUFF inhaler 1 - 2 puff INHALATION Q6H PRN PRN (Reason: Dyspnea/Wheezing/Sob) RF: 0 Primary Care Provider: Paulo Nguyen Referrals: Shakira Stafford MD [STAFF PHYSICIAN] - As soon as possible Paulo Nguyen MD [Primary Care Provider] - Disposition Disposition: Home, Self Care Discharge Date/Time: 08/11/21 21:28
[2021-08-11] MEDS: Ondansetron 4 MG/2 ML Vial IV (17:17)
[2021-08-11] MEDS: predniSONE 20 MG Tablet 60 MG PO (17:17)
[2021-08-11] MEDS: Morphine 4 MG/ML Syringe IV (17:18)
--- NOTE | 2021-08-11 19:41 | NURSING ---
PATIENT IN THE BED AND HOB ELEVATED. PATIENT NOT ABLE TO MOVE LEGS TO SIDE, TO SIT UP, ERIC WITH ONE ASSIST BY THIS NURSE. STATES HE CANNOT MOVE D/T PAIN AND WAS NOT ABLE TO GET INTO SITTING POSITION, WHEN TRYING TO GET HIM TO TRANSFER TO CHAIR.
[2021-08-11] MEDS: Ketorolac 15 MG/ML Vial IV (19:55)
[2021-08-11 20:01] LABS: Absolute Lymphocyte Count 1.29 X10^3/uL (0.83-4.51); Absolute Neutrophil Count 5.3 X10^3/uL (2.0-7.7); Basophil# 0.03 X10^3/uL; Basophil% 0.4 % (0-1); Eosinophil# 0.23 X10^3/uL; Eosinophils% 3.1 % (0-5); Hematocrit 40.9 % (40-54); Hemoglobin 13.9 g/dL (13.0-16.5); Lymphocyte # 1.29 X10^3/ul (0.83-4.51); Lymphocyte % 17.3 % (19-41); Mean Corpuscular Hgb 33.3 pg (27.0-32.0); Mean Corpuscular Volume 97.8 fL (80-94); Monocyte# 0.58 X10^3/uL; Monocyte% 7.8 % (0-10); NRBC Flagged by Analyzer 0 % (0-5); Platelet Count 182 K/mm3 (150-450); RBC Distribution Width CV 13.7 % (11.6-14.6); RBC Distribution Width SD 49.1 fl (35.1-43.9); Red Blood Count 4.18 M/mm3 (4.6-6.2); White Blood Count 7.5 K/mm3 (4.4-11.0)
[2021-08-11 20:14] LABS: Anion Gap 3 (5-15); BUN 22 mg/dL (7-18); BUN/Creat Ratio 14.8 RATIO (10-20); Calcium,Total 9.3 mg/dL (8.5-10.1); Chloride 104 mmol/L (98-107); Creatinine, Serum 1.49 mg/dL (0.70-1.30); EST Glomerular Filtration Rate 48 mL/min (>60); Est Glom Filt Rate - Afr Amer 59 mL/min (>60); Estimated Creatinine Clearance 39.53 ml/min; Glucose 132 mg/dL (74-106); Potassium 4.2 mmol/L (3.5-5.1); Sodium Level 138 mmol/L (136-145)
--- NOTE | 2021-08-11 21:11 | ED.RN ---
patient up and sitting in chair and calling to head in, for pick-up
[2021-08-11] MEDS: Lidocaine 5% Patch 1 PATCH TOPICAL (21:25)
== END 2021-08-11 21:28 | disposition home or self-care (01) ==
PROVIDERS: Emergency Provider Emergency Medicine; PCP Family Medicine
DX: G89.29 Other chronic pain (principal); M54.50 Low back pain, unspecified; I25.10 Atherosclerotic heart disease of native coronary artery without angina pectoris; E11.9 Type 2 diabetes mellitus without complications; I10 Essential (primary) hypertension; E78.5 Hyperlipidemia, unspecified; E66.9 Obesity, unspecified; Z79.4 Long term (current) use of insulin; Z79.891 Long term (current) use of opiate analgesic; Z79.899 Other long term (current) drug therapy
CPT/HCPCS: 80048; 85025; 96374; 96375; 99285; A4216; J2405

== ENCOUNTER → 2021-08-18 08:45 | Outpatient (CLI) | payer MEDICARE, OTHER, SELFPAY ==
[2021-02-27 07:06] VITALS: BMI 40.4
[2021-08-18 10:47] LABS: Hemoglobin A1c 7.3 % (3.8-5.6)
== END ==
PROVIDERS: PCP Family Medicine; Referring Provider Orthopaedic Surgery; Visit Provider Orthopaedic Surgery
DX: E11.69 Type 2 diabetes mellitus with other specified complication (principal); Z79.4 Long term (current) use of insulin
CPT/HCPCS: 36415; 83036

== ENCOUNTER 2021-09-08 18:02 | Inpatient (IN) | payer MEDICARE, OTHER, SELFPAY ==
[2021-02-27 07:06] VITALS: BMI 40.4
[2021-09-08 18:29] VITALS: BP 115/75; PULSE 68; RESP 18; TEMP 36.7; O2SAT 98; BMI 37.0
[2021-09-08] MEDS: Morphine 4 MG/ML Syringe IV (20:18)
--- NOTE | 2021-09-08 20:26 | EDS_ITS ---
HPI History of Present Illness Chief Complaint: Weakness Detail of Chief Complaint: Back pain with bilateral paresthesia scheduled for surgery October by Dr. Junior Informant: patient Onset/Context/Timing Onset: Month(s) Injury: fall (Fell off commode) Timing: Continuous Quality: Dull Location: Lumbar, Buttock, Right Leg and Left Leg Current Severity: Mild Maximum Severity: Severe Worsened by: improves with Movement, Ambulation, Bending and Lifting Relieved by: Nothing Associated Symptoms Associated Symptoms: Numbness, Tingling, Radiation to Right Leg, Radiation to Left Leg and - (Denies saddle paresthesia or anesthesia); Negative for Fever, Abdominal Pain, Dysuria, Unable to Ambulate, Unable to Transfer, Urinary Retention, Urinary Incontinence, Constipation and Fecal Incontinence Narrative Narrative: Patient is an elderly gentleman. 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 He had an MRI recently. He is scheduled for surgery in October. He denies fever, chills night sweats. He states he called the squad because he was unable to get up off the floor after he fell off the commode. He denies fever, chills night sweats. He has no other complaint other than weak and unable to get up off the floor. Prior similar symptoms: No and With Prior Back Pain Recent Illness/Hospitalization: No PFSH PFSH Medical History Atherosclerotic heart disease of [place] coronary artery without angina pectoris DM type 2 (diabetes mellitus, type 2) Essential hypertension Hyperlipidemia NSTEMI (non-ST elevated myocardial infarction) Obesity Pericardial effusion Presence of stent in coronary artery (10/20/19) Home Medications cholecalciferol (vitamin D3) 1,000 unit PO DAILY 10/19/19 [History Last Taken 10/19/19] folic acid 0.4 mg PO DAILY 10/19/19 [History Last Taken 10/19/19] metformin 1,000 mg PO DAILY 10/19/19 [History Last Taken 10/19/19] multivitamin with minerals 1 ea PO DAILY 10/19/19 [History Last Taken 10/19/19] acetaminophen 500 - 1,000 mg PO Q6H PRN PRN 11/01/19 [History Last Taken Unknown] tamsulosin 0.4 mg capsule 0.4 mg PO QHS 07/02/20 [History Last Taken Unknown] albuterol sulfate 1 - 2 puff INHALATION Q6H PRN PRN 12/01/20 [History Last Taken Unknown] oxybutynin chloride 10 mg PO DAILY 12/01/20 [History Last Taken Unknown] aspirin 81 mg tablet,delayed release 81 mg PO DAILY tab 04/08/21 [History Last Taken Unknown] furosemide 40 mg tablet 40 mg PO BID tab 04/08/21 [History Last Taken Unknown] krill oil 500 mg capsule 500 mg PO DAILY cap 04/08/21 [History Last Taken Unknown] losartan 25 mg tablet 25 mg PO DAILY tab 04/08/21 [History Last Taken Unknown] potassium chloride 10 mEq tablet,extended release 20 meq PO BID tab 04/08/21 [History Last Taken Unknown] zinc gluconate 50 mg tablet 100 mg PO DAILY tab 04/08/21 [History Last Taken Unknown] carvedilol 6.25 mg tablet 6.25 mg PO BID tab 05/15/21 [History Last Taken Unknown] clopidogrel 75 mg tablet 75 mg PO DAILY tab 05/15/21 [History Last Taken Unknown] dulaglutide 1.5 mg/0.5 mL subcutaneous pen injector 0.75 mg SUBCUT QWEEK ml 05/15/21 [History Last Taken Unknown] pravastatin 80 mg tablet 80 mg PO DAILY 05/15/21 [History Last Taken Unknown] apple cider vinegar 500 mg tablet 500 mg PO DAILY tab 08/06/21 [History Last Taken Unknown] buprenorphine 10 mcg/hour weekly transdermal patch 1 patch TRANSDERMAL Q7D 08/06/21 [History Last Taken Unknown] docusate sodium 100 mg capsule 100 mg PO TID cap 08/06/21 [History Last Taken Unknown] hydrocodone-acetaminophen 5-325mg 5mg-325mg 1 tab PO BID PRN tab 08/06/21 [History Last Taken Unknown] insulin glargine 100 unit/mL (3 mL) subcutaneous pen 20 unit SUBCUT BID ml 08/06/21 [History Last Taken Unknown] loratadine 10 mg tablet 10 mg PO DAILY PRN 08/06/21 [History Last Taken Unknown] lidocaine [Lidoderm] 1 patch TOPICAL DAILY #6 ea 08/11/21 [Rx Last Taken Unknown] prednisone 40 mg PO DAILY #6 tab 08/11/21 [Rx Last Taken Unknown] Allergy/AdvReac Type Severity Reaction Status Date / Time lisinopril AdvReac cough Verified 09/08/21 18:32 Surgical History History of left heart catheterization (10/20/19) Presence of coronary angioplasty implant and graft (~10/20/19) Social History (Updated 09/08/21 @ 20:[address] Onur Brooke MD) household members: spouse Smoking Status: Never smoker alcohol intake: current alcohol intake frequency: a few times a month Alcohol type: beer substance use type: does not use caffeine: No ROS ROS ED Constitutional Constitutional ED: Denies chills, fever(s), subjective, sweats or weight loss Eyes Eyes: Denies blurry vision or change in vision Cardiovascular Cardiovascular: Denies chest pain, orthopnea, palpitations or racing heartbeat Respiratory/Chest Respiratory/Chest: Denies dyspnea, dyspnea on exertion, orthopnea or sputum Gastrointestinal Gastrointestinal: Denies abdominal pain, constipation, diarrhea, melena, nausea or vomiting Genitourinary Genitourinary ED: Denies dysuria, hematuria or urinary frequency Musculoskeletal Musculoskeletal: Reports back pain; Denies arthralgias, myalgias or neck pain Integumentary Denies rash Neurologic Neurologic: Reports paresthesias and weakness; Denies headache(s) Endocrine Endocrinology: Denies polydipsia, polyphagia or polyuria EXAM Physical Exam Const Vital Signs: 09/08/21 18:29 09/08/21 20:21 Temperature 98.1 F Temperature Source Temporal Pulse Rate 68 Respiratory Rate 18 Respiratory Pattern Tachypnea Blood Pressure 115/75 Blood Pressure Mean 88 Pulse Ox 98 Oxygen Delivery Method Room Air Positive well nourished, well developed and obese General Appearance ED: well developed, NAD and other Patient appears frustrated. Voice is just is weak. ; Negative for pallor Nutritional Appearance: obese HEENT Reports TM's clear Negative for trauma or tenderness Tympanic Membrane ED: Yes TM's clear Eyes PERRL and EOMs intact bilaterally General Eye ED: Yes other Other Details: There is no subconjunctival hemorrhage. ; Negative for pale conjunctiva or scleral icterus Neck no lymphadenopathy, supple and no JVD Resp normal respiratory effort and clear to auscultation bilaterally Cardio regular rate, regular rhythm, S2 normal heart sound and no murmurs GI normal to inspection, nondistended, normoactive bowel sounds, soft to palpation and non-tender Extremity no clubbing, cyanosis or edema; Negative for normal to inspection General Extremety ED: Yes edema; Negative for tenderness General Extremity: edema Neuro Neuro Narrative: Straight leg test is negative. EHLs intact. There is not much effort with plantar or dorsiflexion of the foot. Deep Tendon Reflexes: Rt Patellar (L4): 1+, Lt Patellar (L4): 1+ and Rt Ankle (S1): 1+ Deep Tendon Reflexes Back: Rt Patellar (L4): 1+, Lt Patellar (L4): 1+ and Rt Ankle (S1): 1+ Plantar Reflex: Downgoing: bilateral Psych mental status grossly normal Mood & Affect: depressed Skin no rashes or lesions noted and no wounds General Skin Exam: Negative for jaundice or pallor MDM MDM MDM Narrative Medical decision making narrative: MRI was reviewed. Patient has spinal stenosis. There is no acute herniated disc. He has no objective acute neuro findings. Will medicate and after he is medicated since his pain is worse will determine if he is able to ambulate. Patient was reassessed at 2143. His pain was better. Order was placed to ambulate patient. Patient was able to stand however is not able to ambulate since he is not able to ambulate the hospitalist was called. He will need a consult to Dr. Shearer the spine surgeon and OT and PT. Discharge Plan Triage Chief Complaint: Weakness ED Provider: Onur Brooke Dx/Rx/DC Orders Clinical Impression: Spondylosis of lumbar spine with myelopathy Prescriptions: No Action tamsulosin 0.4 mg capsule 0.4 mg PO QHS RF: 0 potassium chloride 10 mEq tablet extended release 20 meq PO BID RF: 0 krill oil 500 mg capsule 500 mg PO DAILY RF: 0 zinc gluconate 50 mg tablet 100 mg PO DAILY RF: 0 losartan 25 mg tablet 25 mg PO DAILY RF: 0 furosemide 40 mg tablet 40 mg PO BID RF: 0 Trulicity 1.5 mg/0.5 mL pen injector 0.75 mg subcut QWEEK RF: 0 apple cider vinegar 500 mg tablet 500 mg PO DAILY RF: 0 hydrocodone-acetaminophen 5-325 mg tablet 1 tab PO BID PRNRF: 0 Basaglar KwikPen U-100 Insulin 100 unit/mL (3 mL) insulin pen 20 unit subcut BID RF: 0 loratadine 10 mg tablet 10 mg PO DAILY PRNRF: 0 buprenorphine [Butrans] 10 mcg/hour patch weekly 1 patch transdermal Q7D RF: 0 carvedilol 6.25 mg tablet 6.25 mg PO BID RF: 0 clopidogrel 75 mg tablet 75 mg PO DAILY RF: 0 multivitamin with minerals 1 EACH tablet 1 ea PO DAILY RF: 0 metformin 1,000 MG tablet extended release 24hr 1,000 mg PO DAILY RF: 0 cholecalciferol (vitamin D3) 1,000 UNIT tablet 1,000 unit PO DAILY RF: 0 folic acid 0.4 MG tablet 0.4 mg PO DAILY RF: 0 aspirin 81 mg tablet,delayed release (DR/EC) 81 mg PO DAILY RF: 0 pravastatin 80 mg tablet 80 mg PO DAILY RF: 0 docusate sodium 100 mg capsule 100 mg PO TID RF: 0 acetaminophen 500 MG tablet 500 - 1,000 mg PO Q6H PRN PRN (Reason: Pain Or Fever) RF: 0 oxybutynin chloride 10 MG tablet extended release 24hr 10 mg PO DAILY RF: 0 albuterol sulfate 1 PUFF inhaler 1 - 2 puff INHALATION Q6H PRN PRN (Reason: Dyspnea/Wheezing/Sob) RF: 0 prednisone 20 mg tablet 40 mg PO DAILY Qty: 6 RF: 0 lidocaine [Lidoderm] 5 % adhesive patch,medicated 1 patch topical DAILY Qty: 6 RF: 0 Primary Care Provider: Paulo Nguyen Referrals: Paulo Nguyen MD [Primary Care Provider] - Disposition Disposition: Acute Care Hospital [facility]
--- NOTE | 2021-09-08 23:12 | HP.PCM.HOS_ITS ---
[facility] - General General Date of Admission: 09/08/21 HPI Narrative LUCIA NEGRO, is a 76 M with history of chronic back pain and multiple back surgery was brought to ED by EMS for severe back pain, could not stand up or walk, leg weakness and fall. Patient stated he tried to stand up after using toilet but could not stand up and his legs gave out causing fall. Denies loss of consciousness or injury. Patient has prior history of lumbar spinal stenosis, possible pinched nerve and had prior back surgery in [id number]. After that, he did good with back pain. Patient having progressive back pain for last several years and was seeing Dr. Stafford but pain was controlled with epidural and oral analgesia. For last 4 months, suffered with severe sciatica pain, lumbar pain radiation to both lower legs below knee and saw Dr. Shearer who did an MRI and is scheduled for surgery in October 2021. Patient denies urinary retention or new symptoms involving the bladder or bowel. Patient has perineal sensation. Patient has history of fall about 3 weeks ago. No lab done in ED. [facility] Medical History Atherosclerotic heart disease of [place] coronary artery without angina pectoris DM type 2 (diabetes mellitus, type 2) Essential hypertension Hyperlipidemia NSTEMI (non-ST elevated myocardial infarction) Obesity Pericardial effusion Presence of stent in coronary artery (10/20/19) Home Medications cholecalciferol (vitamin D3) 1,000 unit PO DAILY 10/19/19 [History Last Taken 09/08/21] folic acid 0.4 mg PO DAILY 10/19/19 [History Last Taken 09/08/21] metformin 1,000 mg PO DAILY 10/19/19 [History Last Taken 09/08/21] multivitamin with minerals 1 ea PO DAILY 10/19/19 [History Last Taken 09/08/21] acetaminophen 500 - 1,000 mg PO Q6H PRN PRN 11/01/19 [History Last Taken Unknown] tamsulosin 0.4 mg capsule 0.4 mg PO QHS 07/02/20 [History Last Taken 09/07/21] albuterol sulfate 1 - 2 puff INHALATION Q6H PRN PRN 12/01/20 [History Last Taken Unknown] oxybutynin chloride 10 mg PO DAILY 12/01/20 [History Last Taken 09/08/21] aspirin 81 mg tablet,delayed release 81 mg PO DAILY tab 04/08/21 [History Last Taken 09/08/21] furosemide 40 mg tablet 40 mg PO BID tab 04/08/21 [History Last Taken 09/08/21] krill oil 500 mg capsule 500 mg PO DAILY cap 04/08/21 [History Last Taken 09/08/21] losartan 25 mg tablet 25 mg PO DAILY tab 04/08/21 [History Last Taken 09/08/21] potassium chloride 10 mEq tablet,extended release 20 meq PO BID tab 04/08/21 [History Last Taken Unknown] zinc gluconate 50 mg tablet 100 mg PO DAILY tab 04/08/21 [History Last Taken Unknown] carvedilol 6.25 mg tablet 6.25 mg PO BID tab 05/15/21 [History Last Taken 09/08/21] clopidogrel 75 mg tablet 75 mg PO DAILY tab 05/15/21 [History Last Taken 09/08/21] dulaglutide 1.5 mg/0.5 mL subcutaneous pen injector 0.75 mg SUBCUT TU ml 05/15/21 [History Last Taken 09/08/21] pravastatin 80 mg tablet 80 mg PO DAILY 05/15/21 [History Last Taken Unknown] apple cider vinegar 500 mg tablet 500 mg PO DAILY tab 08/06/21 [History Last Taken 09/08/21] buprenorphine 10 mcg/hour weekly transdermal patch 15 mcg TRANSDERMAL TU 08/06/21 [History Last Taken 09/08/21] docusate sodium 100 mg capsule 100 mg PO TID cap 08/06/21 [History Last Taken 09/08/21] hydrocodone-acetaminophen 5-325mg 5mg-325mg 2 tab PO DAILY tab 08/06/21 [History Last Taken 09/08/21] insulin glargine 100 unit/mL (3 mL) subcutaneous pen 24 unit SUBCUT BID ml 08/06/21 [History Last Taken 09/08/21] loratadine 10 mg tablet 10 mg PO DAILY PRN 08/06/21 [History Last Taken Unknown] coenzyme Q10 [Co Q-10] 10 mg PO DAILY 09/09/21 [History Last Taken 09/08/21] Allergy/AdvReac Type Severity Reaction Status Date / Time lisinopril AdvReac cough Verified 09/08/21 18:32 Surgical History H/O knee surgery History of back surgery History of left heart catheterization (10/20/19) Presence of coronary angioplasty implant and graft (~10/20/19) Social History household members: spouse Smoking Status: Never smoker alcohol intake: current alcohol intake frequency: a few times a month Alcohol type: beer substance use type: does not use caffeine: No ROS ROS Narrative Constitutional: Severe back pain, sciatic in nature. Could not move his feeds up. HEENT: Reports systems reviewed and no addt'l complaints, except as documented Respiratory/Chest: Denies chest pain, shortness of breath at rest or with exertion Gastrointestinal: Denies coffee ground emesis, hematemesis or vomiting Genitourinary: Denies burning urination or new urinary tract symptoms Musculoskeletal: Severe back pain, inability to stand up. Fall Extremities: Bilateral chronic intermittent leg swelling. Neurologic: Denies seizure-like activity skin: No ulcer. No rash Endocrinology: Reports systems reviewed and no addt'l complaints, except as documented Hematologic/Lymphatic: Reports systems reviewed and no addt'l complaints, except as documented Rest 12 ROS are negative except as mentioned in HPI Vital Signs Vital Signs Vital Signs: 09/08/21 18:29 09/08/21 20:21 Temperature 98.1 F Temperature Source Temporal Pulse Rate 68 Respiratory Rate 18 Respiratory Pattern Tachypnea Blood Pressure 115/75 Blood Pressure Mean 88 Pulse Ox 98 Oxygen Delivery Method Room Air Weight Weight: 244 lb Body Mass Index (BMI) 37.0 Physical Exam Narrative General: Alert, Oriented x3, Cooperative HEENT: Atraumatic, PERRLA, EOMI, Normocephalic Oral: No Gingival or Mucosal Lesions/ Ulcerations Neck: Supple, No JVD, Negative Carotid Bruits Lungs: Air entry diminished in bilateral lung bases. No crepitation/rhonchi Cardiovascular: Regular rate, Regular Rhythm, Normal S1, Normal S2, No murmurs Abdomen: Bowel Sounds Present, Soft, Non Tender, Non-Distended : No bladder distention/urine retention. No renal angle tenderness. No suprapubic tenderness. Extremities: Bilateral below-knee leg pitting, 3+ edema, Capillary Refill Less than 3 Seconds Skin: No rashes, No breakdown Musculoskeletal/spine: Tenderness in the lumbar spine. Muscle strength 3/5 at major joints in lower extremities. Neurological: Cranial nerves II-XII grossly intact, DTR 2/4, symmetrical. Has perineal sensation. Sensation to touch and pressure diminished in both lower legs, chronic. Psych/Mental Status: Normal Affect, Appropriate. Assessment & Plan Assessment/Plan (1) Spinal stenosis of lumbar region with radiculopathy: PLAN: 1. Acute on chronic sciatica back pain with bilateral lower extremity weakness: Patient had lumbar spine MRI in May 2021 which showed mild dextroscoliosis and diffuse degenerative disc disease. Recent lumbar spinal x-ray on 08/17/2021 shows similar diffuse degenerative disc disease. Dr. Shearer is being consulted. Patient is being admitted as an observation on [facility] floor for pain control. PT and OT ordered. Pain medications including Tylenol, oxycodone and Dilaudid. Patient does not have cauda equina symptoms or transverse myelitis symptoms 2. Coronary artery disease status post PCI: Patient follows Dr. Guidry. Patient had last PCI in October 2019. Denies any active chest pain or shortness of breath. Last 2D echo in April 2021 shows EF 55%, LA moderately enlarged, trivial MR, TR and moderate mitral annular calcification. Overall suggestive of chronic HFpEF. Continue patient home cardiac medications including furosemide 40 mg twice daily 3. Diabetes mellitus type 2: Patient on dulaglutide subcutaneous on Tuesday and glargine 24 units subcutaneous twice daily. Accu-Chek insulin is covered with Humalog sliding scale. On Lantus 20 units twice daily. Titrate the dose of insulin as per Accu-Cheks. Labs ordered. 4. Hypertension, dyslipidemia: Home medication reconciliation done. 5. BPH: On tamsulosin. Living will/advanced directive/end of life care: Patient had living will when he was in [facility] but was told to make new living will in [place] as he recently moved in. His is next to kin. After discussion of benefits/risks procedures involved with full code, DNR CC arrest and DNR CC, the patient opted for full code. Patient does want artificial life support including intubation, tube feed, ventilator and/chest compression, central venous catheter, vasopressor and DC shock if needed Total time spent in [id number] encounter in discussion of advanced directive 16 minutes. Charges/Coding Visit Charges Inpatient E&M: 97658 Init Hosp L3 Procedures Hospitalists Procedures: 80806 Advncd Care Plan 30 Min
[2021-09-09] VITALS (7 sets, daily range): BP systolic 119–140; BP diastolic 58–83; PULSE 71–83; RESP 16–18; TEMP 36.4–36.8; O2SAT 96–100; BMI 37.7
--- NOTE | 2021-09-09 02:16 | PCS.PANDOC ---
PANDEMIC DOCUMENTATION INITIATED: Date: 05/25/2021 Time: 1900 Emergency documentation initiated 09/09/21 @ 0200
[2021-09-09] MEDS: HYDROmorphone 0.5 MG/0.5 ML SYRINGE IV (02:40)
[2021-09-09 02:55] LABS: Absolute Lymphocyte Count 1.06 X10^3/uL (0.83-4.51); Absolute Neutrophil Count 4.2 X10^3/uL (2.0-7.7); Basophil# 0.03 X10^3/uL; Basophil% 0.5 % (0-1); Eosinophil# 0.24 X10^3/uL; Eosinophils% 3.8 % (0-5); Hematocrit 39.8 % (40-54); Hemoglobin 13.5 g/dL (13.0-16.5); Lymphocyte # 1.06 X10^3/ul (0.83-4.51); Lymphocyte % 16.9 % (19-41); Mean Corp Hgb Conc 33.9 g/dL (32-36); Mean Corpuscular Hgb 32.9 pg (27.0-32.0); Mean Corpuscular Volume 97.1 fL (80-94); Mean Platelet Vol. 9.6 fl (6.2-12.0); Monocyte# 0.67 X10^3/uL; Monocyte% 10.7 % (0-10); NRBC Flagged by Analyzer 0 % (0-5); Neutrophil # 4.23 X10^3/uL (2.7-7.7); Neutrophil % 67.6 % (47-70); Platelet Count 182 K/mm3 (150-450); RBC Distribution Width CV 13.9 % (11.6-14.6); RBC Distribution Width SD 49.1 fl (35.1-43.9); White Blood Count 6.3 K/mm3 (4.4-11.0)
[2021-09-09 03:13] LABS: Anion Gap 7 (5-15); BUN 21 mg/dL (7-18); BUN/Creat Ratio 14.9 RATIO (10-20); Calcium,Total 8.8 mg/dL (8.5-10.1); Chloride 102 mmol/L (98-107); Creatinine, Serum 1.41 mg/dL (0.70-1.30); EST Glomerular Filtration Rate 52 mL/min (>60); Est Glom Filt Rate - Afr Amer 62 mL/min (>60); Estimated Creatinine Clearance 41.77 ml/min; Glucose 221 mg/dL (74-106); Phosphorus 2.8 mg/dL (2.5-4.9); Potassium 3.3 mmol/L (3.5-5.1); Sodium Level 139 mmol/L (136-145)
[2021-09-09 03:18] LABS: CPK Total, Creatine Kinase 130 U/L (39-308)
[2021-09-09] MEDS: Acetaminophen 500 MG Tablet 1000 MG PO ×3 (05:48→21:32)
[2021-09-09] MEDS: oxyCODONE 5 MG Tablet 10 MG PO ×3 (05:48→21:26)
[2021-09-09] MEDS: Heparin Injection (Vial) 5,000 UNIT/ML VIAL 5000 UNIT SC ×3 (05:49→21:31)
[2021-09-09 07:05] LABS: Bedside Glucose 161 mg/dL (70-110)
[2021-09-09] MEDS: Cholecalciferol (VIT D3) 25 MCG TABLET (1,000 UNITS) PO (09:12)
[2021-09-09] MEDS: Senna/Docusate Sodium 1 Tablet 2 TABLET PO ×2 (09:12→21:32)
[2021-09-09] MEDS: Clopidogrel Bisulfate 75 MG Tablet PO (09:12)
[2021-09-09] MEDS: Furosemide 40 MG Tablet PO ×2 (09:13→18:01)
[2021-09-09] MEDS: Tolterodine Tartrate 2 MG CAP.SA PO (09:13)
[2021-09-09] MEDS: Folic Acid 1 MG Tablet 0.5 MG PO ×2 (09:13)
[2021-09-09] MEDS: Losartan Potassium 25 MG Tablet PO (09:13)
[2021-09-09] MEDS: Aspirin E.C. 81 MG Tablet PO (09:14)
[2021-09-09] MEDS: Potassium Chloride Oral Tablet 20 MEQ PO (09:14)
[2021-09-09] MEDS: Carvedilol 6.25 MG Tablet PO ×2 (09:14→16:40)
[2021-09-09] MEDS: Insulin Lispro 100 UNIT/ML INSULN.PEN SC ×3 (12:40→21:38)
[2021-09-09] MEDS: dexAMETHasone 4 MG/ML Vial IV ×2 (12:51→18:01)
[2021-09-09] MEDS: 0.9% Saline Lock 10 ML Syringe IV (12:51)
[2021-09-09] MEDS: Gabapentin 100 MG Capsule 200 MG PO (16:45)
--- NOTE | 2021-09-09 19:43 | PCM.PN.HOSP ---
Subjective Subjective Patient was seen and examined today, he has a history of spinal stenosis which according to Dr. Shearer (orthopedic surgery) is moderate in nature. Patient is scheduled to have surgical intervention in October 2021, he was admitted yesterday due to inability to ambulate well at home, patient states that he feels better today and is able to walk better today. Objective Data Objective Data Vital Signs: Vital Signs Temp Pulse Resp BP Pulse Ox 98.2 F 71 18 119/81 H 98 09/09/21 14:28 09/09/21 14:28 09/09/21 14:28 09/09/21 14:28 09/09/21 14:28 Oxygen Delivery Method Room Air Weight: 112.5 kg Body Mass Index (BMI) 37.7 Intake & Output: Intake and Output for Last 24 Hours 09/07/21 09/08/21 09/09/21 23:59 23:59 23:59 Intake Total 910 / 910 Balance 910 / 910 Lab / Micro Data Result Diagrams: 09/09/21 02:40 09/09/21 02:40 Labs: Laboratory Results - last 24 hr 09/09/21 02:40: WBC 6.3, RBC 4.10 L, Hgb 13.5, Hct 39.8 L, MCV 97.1 H, MCH 32.9 H, MCHC 33.9, RDW Std Deviation 49.1 H, RDW Coeff of Susan 13.9, Plt Count 182, MPV 9.6, Immature Gran % (Auto) 0.500, Neut % (Auto) 67.6, Lymph % (Auto) 16.9 L, [place] % (Auto) 10.7 H, Eos % (Auto) 3.8, Baso % (Auto) 0.5, Absolute Neuts (auto) 4.2, Absolute Lymphs (auto) 1.06, Nucleated RBC % 0 09/09/21 02:40: Total Creatine Kinase 130 09/09/21 02:40: Sodium 139, Potassium 3.3 L, Chloride 102, Carbon Dioxide 30.0, Anion Gap 7, BUN 21 H, Creatinine 1.41 H, Estim Creat Clear Calc 41.77, Est GFR (MDRD) Af Amer 62, Est GFR (MDRD) Non-Af 52 L, BUN/Creatinine Ratio 14.9, Glucose 221 H, Calcium 8.8, Phosphorus 2.8, Magnesium 2.0 09/09/21 06:59: POC Glucose 161 H Physical Exam Const alert, oriented x3, no apparent distress and healthy appearing General Appearance: cooperative, well kempt and well developed Orientation / Consciousness: awake, oriented to person, oriented to place and oriented to time HEENT normocephalic, head/scalp atraumatic and moist oral mucous membranes Head and Scalp: normocephalic Eyes PERRL, EOMs intact bilaterally and conjunctivae normal Neck nuchal rigidity, supple, no JVD, thyroid normal and no carotid bruits General: trachea midline Resp normal respiratory effort, no retractions, no use of accessory muscles and clear to auscultation bilaterally Auscultation: Negative for rales, rhonchi or wheezes Cardio regular rate, regular rhythm, S1 normal heart sound, S2 normal heart sound, no murmurs, no rub and no gallops GI normal to inspection, nondistended, normoactive bowel sounds, soft to palpation, non-tender and non-distended Extremity normal to inspection and no clubbing, cyanosis or edema Skin no rashes or lesions noted General Skin Exam: no breakdown Neuro oriented x3, CN's II-XII intact bilaterally, no focal motor deficits and no sensory deficits noted Sensorium / Orientation: awake and alert Speech: speech normal Psych thought process normal and affect normal Assessment & Plan Assessment/Plan (1) Spinal stenosis of lumbar region with radiculopathy: PLAN: 1. Spinal stenosis with radiculopathy and lower extremity weakness-I have decided to place the patient on IV Decadron and place the patient on gabapentin. I will reevaluate the patient in the morning. #2 severe degenerative joint disease of the lumbar spine #3 essential hypertension #4 atherosclerotic heart disease #5 type 2 diabetes #6 hyperlipidemia Charges/Coding Visit Charges OBSV E&M: 65163 Subsequent observation care L3
[2021-09-09] MEDS: Tamsulosin HCl 0.4 MG Capsule PO (21:30)
[2021-09-09] MEDS: Pravastatin 80 MG Tablet PO (21:32)
[2021-09-09 21:35] LABS: Bedside Glucose 206 mg/dL (70-110)
[2021-09-09 21:35] LABS: Bedside Glucose 278 mg/dL (70-110)
[2021-09-09 21:50] LABS: Bedside Glucose 265 mg/dL (70-110)
[2021-09-10] MEDS: dexAMETHasone 4 MG/ML Vial IV ×5 (00:06→23:28)
[2021-09-10] MEDS: 0.9% Saline Lock 10 ML Syringe IV ×3 (00:06→23:28)
[2021-09-10 02:30] VITALS: BP 136/78; PULSE 61; RESP 16; TEMP 37; O2SAT 96
[2021-09-10] MEDS: Heparin Injection (Vial) 5,000 UNIT/ML VIAL 5000 UNIT SC ×3 (05:03→21:02)
[2021-09-10] MEDS: Acetaminophen 500 MG Tablet 1000 MG PO ×3 (05:03→21:01)
[2021-09-10] MEDS: Insulin Lispro 100 UNIT/ML INSULN.PEN SC ×4 (06:29→21:10)
[2021-09-10 06:35] LABS: Bedside Glucose 223 mg/dL (70-110)
[2021-09-10 08:00] VITALS: RESP 18
[2021-09-10] MEDS: Aspirin E.C. 81 MG Tablet PO (08:14)
[2021-09-10] MEDS: Potassium Chloride Oral Tablet 20 MEQ PO (08:14)
[2021-09-10] MEDS: Carvedilol 6.25 MG Tablet PO ×2 (08:15→18:12)
[2021-09-10] MEDS: Gabapentin 100 MG Capsule 200 MG PO ×3 (08:17→18:11)
[2021-09-10 08:58] VITALS: BP 115/59; PULSE 75; RESP 16; TEMP 36.9; O2SAT 96
[2021-09-10] MEDS: Tolterodine Tartrate 2 MG CAP.SA PO (09:03)
[2021-09-10] MEDS: Furosemide 40 MG Tablet PO ×2 (09:03→18:12)
[2021-09-10] MEDS: Losartan Potassium 25 MG Tablet PO (09:03)
[2021-09-10] MEDS: Cholecalciferol (VIT D3) 25 MCG TABLET (1,000 UNITS) PO (09:03)
[2021-09-10] MEDS: Clopidogrel Bisulfate 75 MG Tablet PO (09:03)
[2021-09-10] MEDS: Senna/Docusate Sodium 1 Tablet 2 TABLET PO ×2 (09:03→21:01)
--- NOTE | 2021-09-10 11:06 | CASEMGMT ---
Addendum entered by Anna Cool 09/10/21 15:39: TC to Stefany to make aware that pt is not being dc'd and inpatient order placed with anticipation of two more midnights. Addendum entered by Anna Cool 09/10/21 12:36: ANIBAL JHA in to pt room to make aware of [facility] acceptance and that a SN will see him tomorrow. Pt verbalizes understanding. Addendum entered by Anna Cool 09/10/21 11:52: LITO Mccall at [facility] to make referral. Left vm. Will await acceptance. Original Note: ANIBAL JHA in to discuss WONG form with patient. RN ABHIJEET explained WONG form, patient voiced understanding. Pt signed form and filed in chart. Pt provided with a copy of signed WONG form. Spoke with therapy prior to seeing pt who states pt would benefit from SNF but is declining as he wants to take care of his . Discussed with pt options of going home. Pt expressed concerns of finances and wanting to know the cost of HHC. Made him aware that there is no cost and requirements. Pt states he needs to talk to his . Patient was provided a list of HHC providers including quality and resource use data and consistent with the patient?s preferred geographic region, medical needs, and insurance network. Pt states he will discuss with his . He does not think she will want people in their home. He states right now they are fighting because she does not want him to come home. He states he has to go home to care for her. Pt to speak with and ANIBAL JHA to check back with him on the decision. 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 Pt states he has a FWW, rollator, and a scannable glucometer. Pt states he has supplies that are going to be delivered for this. RN to check back.
--- NOTE | 2021-09-10 11:24 | CASEMGMT ---
Social Work Note SW received call from pt's Coty stating pt called her and said he was going to a [facility]. SW informed Coty that the recommendation is SNF but pt is refusing. Coty states that she wants pt to go to SNF and she can take care of herself. JAYESH informed Coty that this worker is going to take phone in the room so this worker, pt and Coty can all talk together. SW in to speak with pt. Pt's Coty on the phone. This worker, Coty and pt all had discussion regarding recommendation of SNF. Pt still refusing SNF placement. Pt states that he needs to go home and do work on the computer. Pt states he needs to pay bills. Coty states that she can bring computer to SNF. Pt states no she can't, she doesn't know what to bring. SW explained that there are concerns with pt going home and again reiterated that recommendation is SNF. SW explained Medicare coverage at SNF. Pt again denied SNF. Pt states that he is agreeable to HHC. AJYESH spoke with pt and Coty about HHC and educated them both on HHC. Pt and Coty agreeable to HHC. Pt states his preferred provider for HHC is [facility]. Pt states that he also needs a raised toilet seat. Coty states to just have staff call her when pt is ready for discharge and she will come get pt. JAYESH updated RN CM on request for HHC and raised toilet seat. Plan: Home with HHC Susy Hill strategic planner, CATERING MANAGER
[2021-09-10 11:40] LABS: Bedside Glucose 322 mg/dL (70-110)
[2021-09-10 12:57] VITALS: O2SAT 96
[2021-09-10 13:37] VITALS: BP 129/50; PULSE 86; RESP 16; TEMP 36.4; O2SAT 95
--- NOTE | 2021-09-10 15:24 | MRI_ITS ---
STUDY: MR Spine Lumbar W/O Contrast 09/10/2021 7:24 PM REASON FOR EXAM: Male, 76 years old. Back pain radicular pain, INCREASED PAIN SINCE PRIOR SCAN, SCHEDULED FOR SURG , UNABLE TO WALK, HX PRIOR SURG TECHNIQUE: MR Spine Lumbar W/O Contrast Standardized fat and water weighted pulse sequences were obtained. COMPARISON: May 13 2021 8:38am FINDINGS: Normal lumbar lordosis. There is no substantial scoliosis. Normal conus medullaris that terminates at the L1 L1-2: Loss of intervertebral disc height. There is endplate spondylosis of the vertebral body. Normal central canal and intervertebral neuroforamina. There is bilateral facet arthropathy. L2-3: Loss of intervertebral disc height. There is endplate spondylosis of the vertebral body. Posterior disc bulge. There is bilateral ligamentum flavum thickening. Left neural foraminal stenosis. Compression of exiting left L2 nerve root. Narrowing of the lateral recess. There is bilateral facet arthropathy. Mild spinal stenosis. L3-4: Loss of intervertebral disc height. There is endplate spondylosis of the vertebral body. Posterior disc bulge. There is bilateral ligamentum flavum thickening. Bilateral neural foraminal stenosis. Compression of exiting L3 nerve root. Narrowing of the lateral recess. There is bilateral facet arthropathy. Mild spinal stenosis. L4-5: Loss of intervertebral disc height. There is endplate spondylosis of the vertebral body. Normal central canal and intervertebral neuroforamina. There is bilateral facet arthropathy. L5-S1: Loss of intervertebral disc height. There is endplate spondylosis of the vertebral body. There is bilateral facet arthropathy. There is bilateral neural foraminal stenosis at L5-S1. . Normal visualized sacral ala. Normal visualized paraspinous soft tissue structures. MRI/Spine Lumbar (Routine) IMPRESSION: Multilevel degenerative changes, as described above. Findings appear stable. Electronically Signed: Fabián Waggoner MD at 19:34 EST , Service support ,
[2021-09-10 18:10] LABS: Bedside Glucose 288 mg/dL (70-110)
--- NOTE | 2021-09-10 18:58 | PN.HOSP_ITS ---
Subjective Subjective Patient was seen and examined today, I saw the patient today in conjunction with Flakito Shearer his spinal surgeon, patient states he is unable to get up and walk even 20 feet with a walker, after discussing his care, we decided to reorder the patient's lumbar spine MRI tonight and make the patient a full admission and reevaluate him tomorrow. Objective Data Objective Data Vital Signs: Vital Signs Temp Pulse Resp BP Pulse Ox 97.6 F L 86 16 129/50 H 95 09/10/21 13:37 09/10/21 13:37 09/10/21 13:37 09/10/21 13:37 09/10/21 13:37 Oxygen Delivery Method Room Air Weight: 112.5 kg Body Mass Index (BMI) 37.7 Intake & Output: Intake and Output for Last 24 Hours 09/08/21 09/09/21 09/10/21 23:59 23:59 23:59 Intake Total 910 / 1310 2400 / 2400 Output Total 2200 / 2200 Balance 910 / 1310 200 / 200 Lab / Micro Data Result Diagrams: 09/09/21 02:40 09/09/21 02:40 Labs: Laboratory Results - last 24 hr 09/09/21 12:38: POC Glucose 206 H 09/09/21 16:38: POC Glucose 278 H 09/09/21 21:37: POC Glucose 265 H 09/10/21 06:28: POC Glucose 223 H 09/10/21 11:36: POC Glucose 322 H 09/10/21 18:03: POC Glucose 288 H Physical Exam Const alert, oriented x3 and no apparent distress General Appearance: cooperative, well kempt and well developed Orientation / Consciousness: awake, oriented to person, oriented to place and oriented to time Nutritional Appearance: obese HEENT normocephalic, head/scalp atraumatic and moist oral mucous membranes Head and Scalp: normocephalic Eyes PERRL, EOMs intact bilaterally and conjunctivae normal Neck nuchal rigidity, supple, no JVD, thyroid normal and no carotid bruits General: trachea midline Resp normal respiratory effort, no retractions, no use of accessory muscles and clear to auscultation bilaterally Auscultation: Negative for rales, rhonchi or wheezes Cardio regular rate, regular rhythm, S1 normal heart sound, S2 normal heart sound, no murmurs, no rub and no gallops GI normal to inspection, nondistended, normoactive bowel sounds, soft to palpation, non-tender and non-distended Extremity no clubbing, cyanosis or edema Skin no rashes or lesions noted General Skin Exam: no breakdown Neuro oriented x3, CN's II-XII intact bilaterally, no focal motor deficits and no sensory deficits noted Neuro Narrative: Patient was unable to ambulate for this examiner today, at rest he appeared to have good strength in his lower extremities however. Sensorium / Orientation: awake and alert Speech: speech normal Psych thought process normal and affect normal Assessment & Plan Assessment/Plan (1) Spondylosis of lumbar spine with myelopathy: (2) Spinal stenosis of lumbar region with radiculopathy: PLAN: 1. Spinal stenosis with radiculopathy and lower extremity weakness- patient was made an admission today, I will order an MRI of the lumbar spine to assess any changes from May of this year when he had his last MRI. I have talked with orthopedic surgery about his care today. 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
[2021-09-10] MEDS: Tamsulosin HCl 0.4 MG Capsule PO (21:01)
[2021-09-10] MEDS: Pravastatin 80 MG Tablet PO (21:02)
[2021-09-10] MEDS: Gabapentin 300 MG Capsule PO (21:05)
[2021-09-10 21:45] LABS: Bedside Glucose 412 mg/dL (70-110)
[2021-09-10 22:27] VITALS: BP 150/75; PULSE 73; RESP 18; TEMP 36; O2SAT 99
[2021-09-11 04:27] VITALS: BP 138/72; PULSE 78; RESP 16; TEMP 36.4; O2SAT 97
[2021-09-11] MEDS: Acetaminophen 500 MG Tablet 1000 MG PO ×2 (06:12→13:37)
[2021-09-11] MEDS: Heparin Injection (Vial) 5,000 UNIT/ML VIAL 5000 UNIT SC ×2 (06:12→13:36)
[2021-09-11] MEDS: dexAMETHasone 4 MG/ML Vial IV ×3 (06:12→17:02)
[2021-09-11] MEDS: Insulin Lispro 100 UNIT/ML INSULN.PEN SC ×3 (06:19→17:01)
[2021-09-11 06:30] LABS: Bedside Glucose 280 mg/dL (70-110)
[2021-09-11] MEDS: Carvedilol 6.25 MG Tablet PO ×2 (07:38→17:05)
[2021-09-11] MEDS: Folic Acid 1 MG Tablet 0.5 MG PO (07:38)
[2021-09-11] MEDS: Aspirin E.C. 81 MG Tablet PO (07:39)
[2021-09-11] MEDS: Potassium Chloride Oral Tablet 20 MEQ PO (07:59)
[2021-09-11 08:00] VITALS: BP 131/69; PULSE 70; RESP 16; TEMP 36.3; O2SAT 98
[2021-09-11] MEDS: Gabapentin 300 MG Capsule PO ×3 (08:02→17:02)
--- NOTE | 2021-09-11 09:45 | CASEMGMT ---
ANIBAL JHA Assessment: Face to Face with pt for initial transition planning/care coordination assessment. RN ABHIJEET introduced self and role at [facility], pt voices understanding and consents to assessment. Pt is A/O x4 and answers all questions appropriately at this time. Pt sitting up in chair in no distress. Care providers, pharmacy, and demographics verified/updated. Admitting Dx: acute on chronic back pain PCP:Wendy Specialists:Manfred, spine surgeon; Rivera, pain mgmt; Brea, cardio Preferred [facility]acy: [facility] Insurance: [facility], A[employer] Prescription Benefit: yes LW/HPOA: Pt denies having a LW/DPOA in [place] and denies need for info regarding AD. Pt states he did have one in [place]. LNOK: Coty Flores, Living Arrangements: Pt lives with in a ground level apt with no steps to enter. Pt reports he bathes self indep and dresses self. He states that he is buying equipment to better assist him to be more independent. Transportation: Pt drives self and denies concerns with transportation. DME/HHC/SNF: Pt has a scanning BGM, syringes for his insulin, walker and rollator. Pt states he is purchasing a tray for his walker as well as an elevated toilet seat. Pt states he did have HHC when he lived in [place] and denies SNF stays. Pt states no concerns with going home at time of dc. He states he does still plan on going home with the HHC that had been set up. Pt states no further concerns/needs. CM to follow. Advised pt to ask CM if any further question/concerns/needs arise, voices understanding. Pt Goal: Home with HHC Plan: Home with [facility] HHC.
[2021-09-11] MEDS: Senna/Docusate Sodium 1 Tablet 2 TABLET PO (09:55)
[2021-09-11] MEDS: Tolterodine Tartrate 2 MG CAP.SA PO (09:56)
[2021-09-11] MEDS: Losartan Potassium 25 MG Tablet PO (09:56)
[2021-09-11] MEDS: Furosemide 40 MG Tablet PO ×2 (09:57→17:03)
[2021-09-11] MEDS: Clopidogrel Bisulfate 75 MG Tablet PO (09:57)
[2021-09-11] MEDS: Cholecalciferol (VIT D3) 25 MCG TABLET (1,000 UNITS) PO (09:57)
[2021-09-11] MEDS: 0.9% Saline Lock 10 ML Syringe IV (11:54)
[2021-09-11 11:55] LABS: Bedside Glucose 329 mg/dL (70-110)
[2021-09-11 15:48] VITALS: O2SAT 98
--- NOTE | 2021-09-11 15:56 | PCM.DC ---
Discharge Instructions Diet Discharge Diet: 1800 Calorie Control Diet Activity Discharge Activity: Return to Normal Activity Follow Up Care Test Results: Test results from this visit will be discussed in further detail at your follow-up appointment, if applicable. Discharge Plan Admission Admit Date/Time: 09/10/21 15:24 Primary Reason for Your Visit: Lumbar radicular pain Attending Provider: Daniel Rosa Primary Care Provider: Paulo Nguyen Discharge Orders/Prescriptions Prescriptions: New gabapentin 300 mg Capsule 300 mg PO TIDCM Qty: 90 RF: 0 prednisone 20 mg tablet 20 mg PO BID Qty: 10 RF: 0 Continued tamsulosin 0.4 mg capsule 0.4 mg PO QHS RF: 0 potassium chloride 10 mEq tablet extended release 20 meq PO DAILY RF: 0 krill oil 500 mg capsule 500 mg PO DAILY RF: 0 zinc gluconate 50 mg tablet 100 mg PO DAILY RF: 0 losartan 25 mg tablet 25 mg PO DAILY RF: 0 furosemide 40 mg tablet 40 mg PO BID RF: 0 Trulicity 1.5 mg/0.5 mL pen injector 0.75 mg subcut TU RF: 0 apple cider vinegar 500 mg tablet 500 mg PO DAILY RF: 0 hydrocodone-acetaminophen 5-325 mg tablet 2 tab PO DAILY RF: 0 Basaglar KwikPen U-100 Insulin 100 unit/mL (3 mL) insulin pen 24 unit subcut BID RF: 0 loratadine 10 mg tablet 10 mg PO DAILY PRN (Reason: allergies) RF: 0 buprenorphine [Butrans] 10 mcg/hour patch weekly 15 mcg transdermal TU RF: 0 carvedilol 6.25 mg tablet 6.25 mg PO BID RF: 0 clopidogrel 75 mg tablet 75 mg PO DAILY RF: 0 multivitamin with minerals 1 EACH tablet 1 ea PO DAILY RF: 0 metformin 1,000 MG tablet extended release 24hr 1,000 mg PO DAILY RF: 0 cholecalciferol (vitamin D3) 1,000 UNIT tablet 1,000 unit PO DAILY RF: 0 folic acid 0.4 MG tablet 0.4 mg PO DAILY RF: 0 aspirin 81 mg tablet,delayed release (DR/EC) 81 mg PO DAILY RF: 0 pravastatin 80 mg tablet 80 mg PO DAILY RF: 0 docusate sodium 100 mg capsule 100 mg PO TID RF: 0 acetaminophen 500 MG tablet 500 - 1,000 mg PO Q6H PRN PRN (Reason: Pain Or Fever) RF: 0 oxybutynin chloride 10 MG tablet extended release 24hr 10 mg PO DAILY RF: 0 albuterol sulfate 1 PUFF inhaler 1 - 2 puff INHALATION Q6H PRN PRN (Reason: Dyspnea/Wheezing/Sob) RF: 0 coenzyme Q10 [Co Q-10] 10 mg capsule 10 mg PO DAILY RF: 0 Referrals / Follow Up: Paulo Nguyen MD [Primary Care Provider] - Within 2 Weeks Flakito Shearer DO [STAFF PHYSICIAN] - Within 2 Weeks Disposition Disposition (needs filled in before D/C Order can be placed): Home, Self Care
[2021-09-11 17:10] VITALS: BP 134/70; PULSE 70; RESP 18; TEMP 36.8; O2SAT 98
[2021-09-11 17:10] LABS: Bedside Glucose 362 mg/dL (70-110)
--- NOTE | 2021-09-11 21:44 | DS.PCM_ITS ---
Providers Date of Admission: 09/10/21 Date of Discharge: 09/11/21 Primary Care Physician: Dr. Paulo Nguyen MD Reason For Visit: ACUTE ON CHRONIC BACK PAIN Diagnosis Discharge Diagnosis (1) Spinal stenosis of lumbar region with radiculopathy: Status: Acute Code(s): M48.061 - Spinal stenosis, lumbar region without neurogenic claudication; M54.16 - Radiculopathy, lumbar region Plan: 1. 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 #3 essential hypertension #4 atherosclerotic heart disease #5 type 2 diabetes #6 hyperlipidemia Medications at Discharge Home Medications cholecalciferol (vitamin D3) 1,000 unit PO DAILY 10/19/19 folic acid 0.4 mg PO DAILY 10/19/19 metformin 1,000 mg PO DAILY 10/19/19 multivitamin with minerals 1 ea PO DAILY 10/19/19 acetaminophen 500 - 1,000 mg PO Q6H PRN PRN 11/01/19 tamsulosin 0.4 mg capsule 0.4 mg PO QHS 07/02/20 albuterol sulfate 1 - 2 puff INHALATION Q6H PRN PRN 12/01/20 oxybutynin chloride 10 mg PO DAILY 12/01/20 aspirin 81 mg tablet,delayed release 81 mg PO DAILY tab 04/08/21 losartan 25 mg tablet 25 mg PO DAILY tab 04/08/21 potassium chloride 10 mEq tablet,extended release 20 meq PO DAILY tab 04/08/21 zinc gluconate 50 mg tablet 100 mg PO DAILY tab 04/08/21 carvedilol 6.25 mg tablet 6.25 mg PO BID tab 05/15/21 clopidogrel 75 mg tablet 75 mg PO DAILY tab 05/15/21 dulaglutide 1.5 mg/0.5 mL subcutaneous pen injector 0.75 mg SUBCUT TU ml 05/15/21 pravastatin 80 mg tablet 80 mg PO DAILY 05/15/21 buprenorphine 10 mcg/hour weekly transdermal patch 15 mcg TRANSDERMAL TU 08/06/21 docusate sodium 100 mg capsule 100 mg PO TID cap 08/06/21 insulin glargine 100 unit/mL (3 mL) subcutaneous pen 24 unit SUBCUT BID ml 08/06/21 loratadine 10 mg tablet 10 mg PO DAILY PRN 08/06/21 coenzyme Q10 [Co Q-10] 10 mg PO DAILY 09/09/21 gabapentin 300 mg PO TIDCM #90 cap 09/11/21 furosemide 40 mg PO DAILY #0 tab 09/12/21 hydrocodone-acetaminophen 2 tab PO Q12H 3 Days #12 tab 09/12/21 prednisone 20 mg PO BID #10 tab 09/12/21 Hospital Course Operations None Procedures None Summary of Care Provided Minutes Spent on Discharge: 31 Hospital Course: This 76-year-old white male was seen in the emergency room at [facility] with complaints of lower extremity weakness, pain, and inability to do ADLs. Patient was going to undergo spinal surgery in October 2021 for moderate spinal stenosis. He had seen Dr. Shearer. Patient's last MRI was May 2021. Patient was initially placed into observation status on MedSurg 3, he was placed on IV Decadron and given gabapentin. Patient was seen by PT and OT, patient appeared the next day to remain weak and was unable to walk, an MRI of the lumbar spine was performed which showed no evidence of change from his May 2021 MRI, there is degenerative joint disease of the lumbar spine noted along with moderate spinal stenosis. On 09/11/2021, patient was seen and examined: On examination he appeared in good health and spirits. Vital signs as documented. Skin warm and dry and without overt rashes. Neck without JVD, neck was supple, trachea midline, thyroid was normal. Lungs clear bilaterally, normal air movement was noted. Heart exam not able for regular rhythm, normal sounds and absence of murmurs, rubs or gallops. Abdomen unremarkable and without evidence of organomegaly, masses, or abdominal aortic enlargement. Bowel sounds are present, abdomen is not distended. Extremities nonedematous, no cyanosis was noted, no clubbing was noted. Neuro: Cranial nerves II through XII are grossly intact, no focal motor deficits were noted, sensation to light touch and pinprick intact, motor exam 5/5 throughout. Psych: Patient is alert and oriented x3, he does not appear anxious or depressed, he does not appear agitated. Patient was discharged home in stable condition on 09/11/2021 and instructed to have follow-up with his spinal surgeon. Weight / BMI Weight Weight: 112.5 kg Body Mass Index (BMI) 37.7 ABG / Lab / Microbiology Data Result Diagrams: 09/09/21 02:40 09/09/21 02:40 Laboratory: Laboratory Results - last 24 hr 09/10/21 21:09: POC Glucose 412 H 09/11/21 06:15: POC Glucose 280 H 09/11/21 11:50: POC Glucose 329 H 09/11/21 17:00: POC Glucose 362 H D/C Instructions Discharge Diet: 1800 Calorie Control Diet Meaningful Use Info Meaningful Use Diagnoses (Choose all that apply): None applicable Discharge Plan Admission Admit Date/Time: 09/10/21 15:24 Primary Reason for Your Visit: Lumbar radicular pain Attending Provider: Daniel Rosa Primary Care Provider: Paulo Nguyen Discharge Orders/Prescriptions Prescriptions: New gabapentin 300 mg Capsule 300 mg PO TIDCM Qty: 90 RF: 0 Continued tamsulosin 0.4 mg capsule 0.4 mg PO QHS RF: 0 potassium chloride 10 mEq tablet extended release 20 meq PO DAILY RF: 0 zinc gluconate 50 mg tablet 100 mg PO DAILY RF: 0 losartan 25 mg tablet 25 mg PO DAILY RF: 0 Trulicity 1.5 mg/0.5 mL pen injector 0.75 mg subcut TU RF: 0 Basaglar KwikPen U-100 Insulin 100 unit/mL (3 mL) insulin pen 24 unit subcut BID RF: 0 loratadine 10 mg tablet 10 mg PO DAILY PRN (Reason: allergies) RF: 0 buprenorphine [Butrans] 10 mcg/hour patch weekly 15 mcg transdermal TU RF: 0 carvedilol 6.25 mg tablet 6.25 mg PO BID RF: 0 clopidogrel 75 mg tablet 75 mg PO DAILY RF: 0 multivitamin with minerals 1 EACH tablet 1 ea PO DAILY RF: 0 metformin 1,000 MG tablet extended release 24hr 1,000 mg PO DAILY RF: 0 cholecalciferol (vitamin D3) 1,000 UNIT tablet 1,000 unit PO DAILY RF: 0 folic acid 0.4 MG tablet 0.4 mg PO DAILY RF: 0 aspirin 81 mg tablet,delayed release (DR/EC) 81 mg PO DAILY RF: 0 pravastatin 80 mg tablet 80 mg PO DAILY RF: 0 docusate sodium 100 mg capsule 100 mg PO TID RF: 0 acetaminophen 500 MG tablet 500 - 1,000 mg PO Q6H PRN PRN (Reason: Pain Or Fever) RF: 0 oxybutynin chloride 10 MG tablet extended release 24hr 10 mg PO DAILY RF: 0 albuterol sulfate 1 PUFF inhaler 1 - 2 puff INHALATION Q6H PRN PRN (Reason: Dyspnea/Wheezing/Sob) RF: 0 coenzyme Q10 [Co Q-10] 10 mg capsule 10 mg PO DAILY RF: 0 No Action furosemide 40 mg tablet 40 mg PO DAILY Qty: 0 RF: 0 prednisone 20 mg tablet 20 mg PO BID Qty: 10 RF: 0 hydrocodone-acetaminophen 5-325 mg tablet 2 tab PO Q12H 3 Days Qty: 12 RF: 0 Referrals / Follow Up: Paulo Nguyen MD [Primary Care Provider] - Within 2 Weeks Flakito Shearer DO [STAFF PHYSICIAN] - Within 2 Weeks Disposition Disposition (needs filled in before D/C Order can be placed): Home, Self Care Charges/Coding Visit Charges Inpatient E&M: 21707 Disch Hosp
== END 2021-09-11 17:35 | disposition home or self-care (01) | DRG 552 ==
LOC: ED 23:09 → MS3 09-09 02:26
PROVIDERS: Admitting Provider Internal Medicine; Emergency Provider Emergency Medicine; PCP Family Medicine; Visit Provider Internal Medicine
DX: M47.26 Other spondylosis with radiculopathy, lumbar region (principal); M48.061 Spinal stenosis, lumbar region without neurogenic claudication; R53.1 Weakness; I10 Essential (primary) hypertension; I25.10 Atherosclerotic heart disease of native coronary artery without angina pectoris; E11.9 Type 2 diabetes mellitus without complications; E78.5 Hyperlipidemia, unspecified; N40.0 Benign prostatic hyperplasia without lower urinary tract symptoms; E66.9 Obesity, unspecified; Z79.4 Long term (current) use of insulin; Z79.891 Long term (current) use of opiate analgesic; Z79.899 Other long term (current) drug therapy; Z68.37 Body mass index [BMI] 37.0-37.9, adult; Z95.5 Presence of coronary angioplasty implant and graft
CPT/HCPCS: 72148; 80048; 82550; 82962; 83735; 84100; 85025; 97162; 97166; 97530; 97535; 99251; 99285; A4216; G0463

== ENCOUNTER 2021-09-11 19:43 | Observation (INO) | payer MEDICARE, OTHER, SELFPAY ==
[2021-02-27 07:06] VITALS: BMI 40.4
[2021-09-11 19:44] VITALS: BP 119/73; PULSE 69; RESP 18; TEMP 36.6; O2SAT 97; BMI 38.7
--- NOTE | 2021-09-11 21:36 | CM.ED ---
SW Note SW was advised by MD that patient was discharged today and went home and fell and can't walk. MD inquired about placement. Due to the time of the day 9:00pm on Tuesday night no weekend placement options are available and patient will need to be admitted. Rebeca DUKE
--- NOTE | 2021-09-11 22:09 | EDS_ITS ---
HPI History of Present Illness Chief Complaint: Weakness Narrative Narrative: Patient is a 76-year-old male with spinal stenosis who was discharged from the hospital today at 5 PM. He states he returned home and was trying to step into his shower when he had leg weakness and cannot hold himself up any further and therefore lowered himself to the ground. He denies striking his head or any loss of consciousness but states that he could not get up secondary to his weakness. Therefore EMS was called and brought him back in for evaluation. [facility] Medical History Atherosclerotic heart disease of [place] coronary artery without angina pectoris DM type 2 (diabetes mellitus, type 2) Essential hypertension Hyperlipidemia NSTEMI (non-ST elevated myocardial infarction) Obesity Pericardial effusion Presence of stent in coronary artery (10/20/19) Home Medications cholecalciferol (vitamin D3) 1,000 unit PO DAILY 10/19/19 [History Last Taken 09/11/21 09:00] folic acid 0.4 mg PO DAILY 10/19/19 [History Last Taken 09/08/21] metformin 1,000 mg PO DAILY 10/19/19 [History Last Taken 09/11/21 09:00] multivitamin with minerals 1 ea PO DAILY 10/19/19 [History Last Taken 09/11/21 09:00] acetaminophen 500 - 1,000 mg PO Q6H PRN PRN 11/01/19 [History Last Taken Unknown] tamsulosin 0.4 mg capsule 0.4 mg PO QHS 07/02/20 [History Last Taken 09/10/21 21:00] albuterol sulfate 1 - 2 puff INHALATION Q6H PRN PRN 12/01/20 [History Last Taken Unknown] oxybutynin chloride 10 mg PO DAILY 12/01/20 [History Last Taken 09/11/21 09:00] aspirin 81 mg tablet,delayed release 81 mg PO DAILY tab 04/08/21 [History Last Taken 09/11/21 09:00] furosemide 40 mg tablet 40 mg PO BID tab 04/08/21 [History Last Taken 09/08/21] krill oil 500 mg capsule 500 mg PO DAILY cap 04/08/21 [History Last Taken 09/08/21] losartan 25 mg tablet 25 mg PO DAILY tab 04/08/21 [History Last Taken 09/11/21 09:00] potassium chloride 10 mEq tablet,extended release 20 meq PO DAILY tab 04/08/21 [History Last Taken 09/11/21 09:00] zinc gluconate 50 mg tablet 100 mg PO DAILY tab 04/08/21 [History Last Taken 09/11/21 09:00] carvedilol 6.25 mg tablet 6.25 mg PO BID tab 05/15/21 [History Last Taken 09/11/21 09:00] clopidogrel 75 mg tablet 75 mg PO DAILY tab 05/15/21 [History Last Taken 09/11/21 09:00] dulaglutide 1.5 mg/0.5 mL subcutaneous pen injector 0.75 mg SUBCUT TU ml 05/15/21 [History Last Taken 09/08/21 08:00] pravastatin 80 mg tablet 80 mg PO DAILY 05/15/21 [History Last Taken 09/10/21 21:00] apple cider vinegar 500 mg tablet 500 mg PO DAILY tab 08/06/21 [History Last Taken 09/08/21] buprenorphine 10 mcg/hour weekly transdermal patch 15 mcg TRANSDERMAL TU 08/06/21 [History Last Taken 09/08/21] docusate sodium 100 mg capsule 100 mg PO TID cap 08/06/21 [History Last Taken 09/11/21 13:00] hydrocodone-acetaminophen 5-325mg 5mg-325mg 2 tab PO DAILY tab 08/06/21 [History Last Taken 09/11/21 09:00] insulin glargine 100 unit/mL (3 mL) subcutaneous pen 24 unit SUBCUT BID ml 08/06/21 [History Last Taken 09/08/21] loratadine 10 mg tablet 10 mg PO DAILY PRN 08/06/21 [History Last Taken Unknown] coenzyme Q10 [Co Q-10] 10 mg PO DAILY 09/09/21 [History Last Taken 09/11/21 09:00] gabapentin 300 mg PO TIDCM #90 cap 09/11/21 [Rx Last Taken 09/11/21 09:00] prednisone 20 mg PO BID #10 tab 09/11/21 [Rx Last Taken 09/11/21 09:00] Allergy/AdvReac Type Severity Reaction Status Date / Time lisinopril AdvReac cough Verified 09/11/21 19:47 Surgical History H/O knee surgery History of back surgery History of left heart catheterization (10/20/19) Presence of coronary angioplasty implant and graft (~10/20/19) Social History household members: spouse Smoking Status: Never smoker alcohol intake: current alcohol intake frequency: a few times a month Alcohol type: beer substance use type: does not use caffeine: No ROS ROS ED Constitutional Constitutional ED: Denies chills or fever(s) ENT ENT ED: Denies sore throat Cardiovascular Cardiovascular: Denies chest pain Respiratory/Chest Respiratory/Chest: Denies cough or dyspnea Gastrointestinal Gastrointestinal: Denies abdominal pain, diarrhea, nausea or vomiting Genitourinary Genitourinary ED: Denies dysuria Musculoskeletal Musculoskeletal: Reports back pain; Denies myalgias Integumentary Denies Abrasions or rash Neurologic Neurologic: Reports weakness; Denies headache(s) Hematologic/Lymphatic Hematologic/Lymphatic: Denies easy bleeding or easy bruising EXAM Physical Exam Const Vital Signs: 09/11/21 19:44 09/11/21 20:01 09/11/21 22:14 Temperature 97.9 F 98.9 F Temperature Source Oral Temporal Pulse Rate 69 69 Respiratory Rate 18 18 Respiratory Effort Normal Respiratory Pattern Normal Blood Pressure 119/73 132/76 H Blood Pressure Mean 88 94 Pulse Ox 97 96 Oxygen Delivery Method Room Air Room Air Positive well nourished, well developed and obese General Appearance ED: well developed Nutritional Appearance: obese HEENT Reports moist mucous membranes HEENT Narrative: No signs of depressed or basilar skull fracture Eyes PERRL and EOMs intact bilaterally Neck supple Neck Narrative: No bony deformity or step-off of the cervical spine no midline pain with palpation Chest Wall palpation of chest normal Resp normal respiratory effort and clear to auscultation bilaterally Cardio regular rate and regular rhythm Rate: other Other Details: Radial pulses are plus 2 out of 4 bilaterally they are equal and symmetric GI normal to inspection, nondistended, normoactive bowel sounds, non-tender, non- distended and no masses GI Narrative: No voluntary guarding no rigidity no pulsatile mass Auscultation: normoactive bowel sounds Palpation: soft Back/Spine Back/Spine Narrative: No saddle anesthesia. Negative straight leg raise. No clonus or Babinski. Patellar reflexes are plus 1 out of 4 bilaterally. No bony deformity or step-off of the thoracic or lumbar spine no midline pain with palpation Extremity normal to inspection Extremity Narrative: Patient is able to plantar and dorsiflex his feet bilaterally but he cannot lift the legs against gravity Neuro oriented x3 and CN's II-XII intact bilaterally Neuro Narrative: NIH stroke scale score of 0 Sensorium / Orientation: alert Psych mental status grossly normal Skin no rashes or lesions noted MDM MDM MDM Narrative Medical decision making narrative: Patient had just been admitted and then discharged from the hospital secondary to back pain inability ambulate and spinal stenosis. His MRI in the hospital was compared to his previous and there is no worsening of his stenosis. Physical exam coyle does not suggest any type of trauma or stroke either. Therefore I feel that his weakness and inability to ambulate is secondary to deconditioning. Patient reported he wished to return home as he had bills to pay even though placement in a [facility]hab was recommended prior to discharge. Patient states that he was walking and felt like he could take care of himself but based on this new event realizes that he must be placed in a [facility]/rehab facility at this time. Therefore as patient cannot ambulate and cannot care for himself he will be admitted to the hospital with plan on placement in [facility]hab facility secondary to his persistent weakness. Discharge Plan Dx/Rx/DC Orders Clinical Impression: Inability to walk, Spinal stenosis, Muscular deconditioning Disposition Disposition: Acute Care Hospital [facility] Discharge Date/Time: 09/11/21 23:00
[2021-09-11 22:14] VITALS: BP 132/76; PULSE 69; RESP 18; TEMP 37.2; O2SAT 96
--- NOTE | 2021-09-11 22:57 | PCM.HP.STD ---
HPI - General General Date of Admission: 09/11/21 HPI Narrative LUCIA NEGRO, is a 76 M who was just admitted on 09/08 and discharged today on 09/11 in the evening came back to ER when he could not stand up from the toilet seat. Patient was admitted with similar symptoms but he had back pain which is more controlled now. During hospital course patient had MRI which did not show significant change from the previous MRI and was seen by spine surgeon Dr. Shearer. The patient was able to walk 20 feet on walker and wanted to go home therefore was discharged. 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 Patient is being admitted for jail placement. Patient was started on prednisone and glucose is high. Lantus dose is increased. Patient diabetes is being managed by his PCP. Patient further said he will follow with Dr. Shearer after completion of course of prednisone whether to three-point scheduled spinal surgery on October 12. [facility] Medical History Atherosclerotic heart disease of [place] coronary artery without angina pectoris DM type 2 (diabetes mellitus, type 2) Essential hypertension Hyperlipidemia NSTEMI (non-ST elevated myocardial infarction) Obesity Pericardial effusion Presence of stent in coronary artery (10/20/19) Home Medications cholecalciferol (vitamin D3) 1,000 unit PO DAILY 10/19/19 [History Last Taken 09/08/21] folic acid 0.4 mg PO DAILY 10/19/19 [History Last Taken 09/08/21] metformin 1,000 mg PO DAILY 10/19/19 [History Last Taken 09/08/21] multivitamin with minerals 1 ea PO DAILY 10/19/19 [History Last Taken 09/08/21] acetaminophen 500 - 1,000 mg PO Q6H PRN PRN 11/01/19 [History Last Taken Unknown] tamsulosin 0.4 mg capsule 0.4 mg PO QHS 07/02/20 [History Last Taken 09/07/21] albuterol sulfate 1 - 2 puff INHALATION Q6H PRN PRN 12/01/20 [History Last Taken Unknown] oxybutynin chloride 10 mg PO DAILY 12/01/20 [History Last Taken 09/08/21] aspirin 81 mg tablet,delayed release 81 mg PO DAILY tab 04/08/21 [History Last Taken 09/08/21] furosemide 40 mg tablet 40 mg PO BID tab 04/08/21 [History Last Taken 09/08/21] krill oil 500 mg capsule 500 mg PO DAILY cap 04/08/21 [History Last Taken 09/08/21] losartan 25 mg tablet 25 mg PO DAILY tab 04/08/21 [History Last Taken 09/08/21] potassium chloride 10 mEq tablet,extended release 20 meq PO DAILY tab 04/08/21 [History Last Taken 09/08/21] zinc gluconate 50 mg tablet 100 mg PO DAILY tab 04/08/21 [History Last Taken 09/08/21] carvedilol 6.25 mg tablet 6.25 mg PO BID tab 05/15/21 [History Last Taken 09/08/21] clopidogrel 75 mg tablet 75 mg PO DAILY tab 05/15/21 [History Last Taken 09/08/21] dulaglutide 1.5 mg/0.5 mL subcutaneous pen injector 0.75 mg SUBCUT TU ml 05/15/21 [History Last Taken 09/08/21] pravastatin 80 mg tablet 80 mg PO DAILY 05/15/21 [History Last Taken 09/08/21] apple cider vinegar 500 mg tablet 500 mg PO DAILY tab 08/06/21 [History Last Taken 09/08/21] buprenorphine 10 mcg/hour weekly transdermal patch 15 mcg TRANSDERMAL TU 08/06/21 [History Last Taken 09/08/21] docusate sodium 100 mg capsule 100 mg PO TID cap 08/06/21 [History Last Taken 09/08/21] hydrocodone-acetaminophen 5-325mg 5mg-325mg 2 tab PO DAILY tab 08/06/21 [History Last Taken 09/08/21] insulin glargine 100 unit/mL (3 mL) subcutaneous pen 24 unit SUBCUT BID ml 08/06/21 [History Last Taken 09/08/21] loratadine 10 mg tablet 10 mg PO DAILY PRN 08/06/21 [History Last Taken Unknown] coenzyme Q10 [Co Q-10] 10 mg PO DAILY 09/09/21 [History Last Taken 09/08/21] gabapentin 300 mg PO TIDCM #90 cap 09/11/21 [Rx Last Taken Unknown] prednisone 20 mg PO BID #10 tab 09/11/21 [Rx Last Taken Unknown] Allergy/AdvReac Type Severity Reaction Status Date / Time lisinopril AdvReac cough Verified 09/11/21 19:47 Surgical History H/O knee surgery History of back surgery History of left heart catheterization (10/20/19) Presence of coronary angioplasty implant and graft (~10/20/19) Social History household members: spouse Smoking Status: Never smoker alcohol intake: current alcohol intake frequency: a few times a month Alcohol type: beer substance use type: does not use caffeine: No ROS ROS Narrative Constitutional: Could not get up. Back pain is controlled. HEENT: Reports systems reviewed and no addt'l complaints, except as documented Respiratory/Chest: Denies chest pain, shortness of breath at rest or with exertion Gastrointestinal: Denies coffee ground emesis, hematemesis or vomiting Genitourinary: Denies burning urination or new urinary tract symptoms Musculoskeletal: Patient can raise his legs while laying down. Extremities: Bilateral leg swelling is improved Neurologic: Denies seizure-like activity skin: No ulcer. No rash Endocrinology: Reports systems reviewed and no addt'l complaints, except as documented Hematologic/Lymphatic: Reports systems reviewed and no addt'l complaints, except as documented Rest 12 ROS are negative except as mentioned in HPI Vital Signs Vital Signs Vital Signs: 09/11/21 19:44 09/11/21 20:01 09/11/21 22:14 Temperature 97.9 F 98.9 F Temperature Source Oral Temporal Pulse Rate 69 69 Respiratory Rate 18 18 Respiratory Effort Normal Respiratory Pattern Normal Blood Pressure 119/73 132/76 H Blood Pressure Mean 88 94 Pulse Ox 97 96 Oxygen Delivery Method Room Air Room Air Weight Weight: 254 lb 6.615 oz Body Mass Index (BMI) 38.7 Physical Exam Narrative General: Alert, Oriented x3, Cooperative HEENT: Atraumatic, PERRLA, EOMI, Normocephalic Oral: No Gingival or Mucosal Lesions/ Ulcerations Neck: Supple, No JVD, Negative Carotid Bruits Lungs: Air entry equal in bilateral lung bases. No crepitation/rhonchi Cardiovascular: Regular rate, Regular Rhythm, Normal S1, Normal S2, No murmurs Abdomen: Bowel Sounds Present, Soft, Non Tender, Non-Distended : Urine output 750 mill. No renal angle tenderness. No suprapubic tenderness. Extremities: Leg swelling 1+., Capillary Refill Less than 3 Seconds Skin: No rashes, No breakdown Musculoskeletal/spine: No spinal tenderness. Muscle strength 4/5 at major joints of lower extremities. Neurological: Cranial nerves II-XII grossly intact, DTR 2/4, symmetrical. Psych/Mental Status: Normal Affect, Appropriate. Assessment & Plan Assessment/Plan (1) Inability to walk: (2) Spinal stenosis of lumbar region with radiculopathy: PLAN: 1. Debility due to spinal stenosis of lumbar region with radiculopathy: Patient could not stand up or walk. Patient had lumbar spine MRI on 09/10 showed multilevel degenerative disc disease. Stable no significant change from previous MRI of 05/13/2021. [facility] Patient was seen by Dr. Shearer during past admission. Continue prednisone. PT and OT. Patient has buprenorphine patch. On pain medication, hydrocodone and morphine and stool softeners. Lab ordered. 2. Coronary artery disease status post PCI in October 2019: No chest pain. Patient follows Dr. Guidry. Last 2D echo in April 2021 shows EF 55%, LA moderately enlarged, trivial MR, TR and moderate mitral annular calcification. Overall suggestive of chronic HFpEF. Continue patient home cardiac medications including furosemide 40 mg twice daily 3. Diabetes mellitus type 2: Blood sugar is uncontrolled due to prednisone. Lantus dose increased to 25 units units twice daily. Started on scheduled Humalog insulin 10 units 3 times daily with meals. Accu-Chek insulin is covered with sliding scale and titrate the dose of insulin as needed. 4. Hypertension, dyslipidemia: Home medication reconciliation done. 5. BPH: On tamsulosin. Living will/advanced directive/end of life care: Patient had living will. His is next to kin. After discussion of benefits/risks procedures involved with full code, DNR CC arrest and DNR CC, the patient opted for full code. Patient does want artificial life support including intubation, tube feed, ventilator and/chest compression, central venous catheter, vasopressor and DC shock if needed Charges/Coding Visit Charges OBSV E&M: 20721 Subsequent observation care L3
[2021-09-11 23:06] VITALS: BMI 37.8
[2021-09-11 23:07] VITALS: BP 137/65; PULSE 62; RESP 18; TEMP 36.5; O2SAT 99
[2021-09-11 23:44] LABS: Absolute Lymphocyte Count 1.05 X10^3/uL (0.83-4.51); Absolute Neutrophil Count 9.2 X10^3/uL (2.0-7.7); Basophil# 0.01 X10^3/uL; Basophil% 0.1 % (0-1); Hematocrit 39.6 % (40-54); Hemoglobin 13.5 g/dL (13.0-16.5); Lymphocyte # 1.05 X10^3/ul (0.83-4.51); Mean Corp Hgb Conc 34.1 g/dL (32-36); Mean Corpuscular Hgb 32.8 pg (27.0-32.0); Mean Corpuscular Volume 96.1 fL (80-94); Mean Platelet Vol. 10.2 fl (6.2-12.0); Monocyte# 0.99 X10^3/uL; Monocyte% 8.5 % (0-10); NRBC Flagged by Analyzer 0 % (0-5); Neutrophil # 9.15 X10^3/uL (2.7-7.7); Neutrophil % 78.8 % (47-70); Platelet Count 215 K/mm3 (150-450); RBC Distribution Width CV 13.5 % (11.6-14.6); RBC Distribution Width SD 47.6 fl (35.1-43.9); Red Blood Count 4.12 M/mm3 (4.6-6.2); White Blood Count 11.6 K/mm3 (4.4-11.0)
[2021-09-11 23:48] LABS: Anion Gap 8 (5-15); BUN 40 mg/dL (7-18); BUN/Creat Ratio 26.1 RATIO (10-20); Chloride 103 mmol/L (98-107); Creatinine, Serum 1.53 mg/dL (0.70-1.30); EST Glomerular Filtration Rate 47 mL/min (>60); Est Glom Filt Rate - Afr Amer 57 mL/min (>60); Glucose 200 mg/dL (74-106); Magnesium 2.2 mg/dL (1.6-2.6); Potassium 3.3 mmol/L (3.5-5.1); Sodium Level 139 mmol/L (136-145)
[2021-09-12 05:00] VITALS: BP 127/75; PULSE 68; RESP 16; TEMP 36.6; O2SAT 98
[2021-09-12] MEDS: Docusate Sodium 100 MG Capsule PO ×2 (05:08→15:03)
--- NOTE | 2021-09-12 07:26 | PCS.PANDOC ---
PANDEMIC DOCUMENTATION INITIATED: Date: 05/25/2021 Time: 190
[2021-09-12] MEDS: Tolterodine Tartrate 2 MG CAP.SA PO (08:25)
[2021-09-12] MEDS: Enoxaparin 40 MG/0.4 ML Syringe SC (08:25)
[2021-09-12] MEDS: Potassium Chloride Oral Tablet 20 MEQ 40 MEQ PO (08:26)
[2021-09-12] MEDS: Folic Acid 1 MG Tablet 0.5 MG PO (08:27)
[2021-09-12] MEDS: Multivitamins,Ther W-Minerals Tablet 1 TABLET PO (08:27)
[2021-09-12] MEDS: Gabapentin 300 MG Capsule PO ×3 (08:27→16:26)
[2021-09-12] MEDS: Clopidogrel Bisulfate 75 MG Tablet PO (08:29)
[2021-09-12] MEDS: predniSONE 20 MG Tablet PO ×2 (08:29→16:26)
[2021-09-12] MEDS: Furosemide 40 MG Tablet PO (08:30)
[2021-09-12] MEDS: Aspirin E.C. 81 MG Tablet PO (08:31)
[2021-09-12] MEDS: HYDROcodone Bitartrate/Apap 5/325 Tablet PO (08:36)
[2021-09-12] MEDS: Insulin Lispro 100 UNIT/ML INSULN.PEN SC ×3 (08:37→16:25)
[2021-09-12] MEDS: Insulin Lispro 100 UNIT/ML INSULN.PEN 10 UNIT SC ×3 (08:37→16:25)
[2021-09-12 11:01] VITALS: BP 96/43; PULSE 65; RESP 18; TEMP 35.9; O2SAT 98
[2021-09-12] MEDS: Cholecalciferol (VIT D3) 25 MCG TABLET (1,000 UNITS) PO (11:05)
--- NOTE | 2021-09-12 12:22 | PCM.TXEXTCAR ---
Diet 09/11/21 23:11 Diet: Consistent Carb - Calorie Controlled Food consistency:: Regular Liquid Consistency:: Regular/Thin How many daily calories?: 1800 calorie Wound(s) nose: Wound Type: Abrasion bilateral knee: Wound Type: Abrasion Problem/Diagnosis (1) Inability to walk: Status: Acute (2) Spinal stenosis of lumbar region with radiculopathy: Status: Acute Allergies/Procedures Done in Hospital Allergies lisinopril Adverse Reaction (Verified 09/11/21 19:47) cough Procedures: None Type of Care/Length of Stay Estimated LOS: Convalescent Care Less Than 30 days Type of Care Needed: Skilled Rehab Potential: Good Prognosis: Good Additional Orders/Day of Discharge Day of Discharge: 09/12/21 Discharge Plan Admission Admit Date/Time: 09/11/21 22:48 Primary Reason for Your Visit: debility Attending Provider: Coleman Cesar Primary Care Provider: Paulo Nguyen Discharge Orders/Prescriptions Prescriptions: Continued tamsulosin 0.4 mg capsule 0.4 mg PO QHS RF: 0 potassium chloride 10 mEq tablet extended release 20 meq PO DAILY RF: 0 zinc gluconate 50 mg tablet 100 mg PO DAILY RF: 0 losartan 25 mg tablet 25 mg PO DAILY RF: 0 Trulicity 1.5 mg/0.5 mL pen injector 0.75 mg subcut TU RF: 0 Basaglar KwikPen U-100 Insulin 100 unit/mL (3 mL) insulin pen 24 unit subcut BID RF: 0 loratadine 10 mg tablet 10 mg PO DAILY PRN (Reason: allergies) RF: 0 buprenorphine [Butrans] 10 mcg/hour patch weekly 15 mcg transdermal TU RF: 0 clopidogrel 75 mg tablet 75 mg PO DAILY RF: 0 multivitamin with minerals 1 EACH tablet 1 ea PO DAILY RF: 0 metformin 1,000 MG tablet extended release 24hr 1,000 mg PO DAILY RF: 0 cholecalciferol (vitamin D3) 1,000 UNIT tablet 1,000 unit PO DAILY RF: 0 folic acid 0.4 MG tablet 0.4 mg PO DAILY RF: 0 pravastatin 80 mg tablet 80 mg PO DAILY RF: 0 docusate sodium 100 mg capsule 100 mg PO TID RF: 0 acetaminophen 500 MG tablet 500 - 1,000 mg PO Q6H PRN PRN (Reason: Pain Or Fever) RF: 0 oxybutynin chloride 10 MG tablet extended release 24hr 10 mg PO DAILY RF: 0 albuterol sulfate 1 PUFF inhaler 1 - 2 puff INHALATION Q6H PRN PRN (Reason: Dyspnea/Wheezing/Sob) RF: 0 coenzyme Q10 [Co Q-10] 10 mg capsule 10 mg PO DAILY RF: 0 gabapentin 300 mg Capsule 300 mg PO TIDCM Qty: 90 RF: 0 prednisone 20 mg tablet 20 mg PO BID Qty: 10 RF: 0 Changed furosemide 40 mg tablet 40 mg PO DAILY Qty: 0 RF: 0 hydrocodone-acetaminophen 5-325 mg tablet 2 tab PO Q12H 3 Days Qty: 12 RF: 0 Discontinued krill oil 500 mg capsule 500 mg PO DAILY RF: 0 apple cider vinegar 500 mg tablet 500 mg PO DAILY RF: 0 No Action carvedilol 6.25 mg tablet 6.25 mg PO BID RF: 0 aspirin 81 mg tablet,delayed release (DR/EC) 81 mg PO DAILY RF: 0 Referrals / Follow Up: Paulo Nguyen MD [Primary Care Provider] - Within 2 Weeks Flakito Shearer DO [STAFF PHYSICIAN] - 10/28/21 11:00 am (already scheduled) Disposition Disposition (needs filled in before D/C Order can be placed): Intermediate Facility
[2021-09-12 12:30] LABS: Bedside Glucose 165 mg/dL (70-110)
[2021-09-12 12:30] LABS: Bedside Glucose 217 mg/dL (70-110)
--- NOTE | 2021-09-12 12:31 | DS.PCM_ITS ---
Providers Date of Admission: 09/11/21 Primary Care Physician: Dr. Paulo Nguyen MD Reason For Visit: DEBILITY, COULD NOT STAND UP Diagnosis Discharge Diagnosis (1) Inability to walk: Status: Acute Code(s): R26.2 - Difficulty in walking, not elsewhere classified (2) Spinal stenosis of lumbar region with radiculopathy: Status: Acute Code(s): M48.061 - Spinal stenosis, lumbar region without neurogenic claudication; M54.16 - Radiculopathy, lumbar region Medications at Discharge Home Medications cholecalciferol (vitamin D3) 1,000 unit PO DAILY 10/19/19 folic acid 0.4 mg PO DAILY 10/19/19 metformin 1,000 mg PO DAILY 10/19/19 multivitamin with minerals 1 ea PO DAILY 10/19/19 acetaminophen 500 - 1,000 mg PO Q6H PRN PRN 11/01/19 tamsulosin 0.4 mg capsule 0.4 mg PO QHS 07/02/20 albuterol sulfate 1 - 2 puff INHALATION Q6H PRN PRN 12/01/20 oxybutynin chloride 10 mg PO DAILY 12/01/20 aspirin 81 mg tablet,delayed release 81 mg PO DAILY tab 04/08/21 losartan 25 mg tablet 25 mg PO DAILY tab 04/08/21 potassium chloride 10 mEq tablet,extended release 20 meq PO DAILY tab 04/08/21 zinc gluconate 50 mg tablet 100 mg PO DAILY tab 04/08/21 carvedilol 6.25 mg tablet 6.25 mg PO BID tab 05/15/21 clopidogrel 75 mg tablet 75 mg PO DAILY tab 05/15/21 dulaglutide 1.5 mg/0.5 mL subcutaneous pen injector 0.75 mg SUBCUT TU ml 05/15/21 pravastatin 80 mg tablet 80 mg PO DAILY 05/15/21 buprenorphine 10 mcg/hour weekly transdermal patch 15 mcg TRANSDERMAL TU 08/06/21 docusate sodium 100 mg capsule 100 mg PO TID cap 08/06/21 insulin glargine 100 unit/mL (3 mL) subcutaneous pen 24 unit SUBCUT BID ml 08/06/21 loratadine 10 mg tablet 10 mg PO DAILY PRN 08/06/21 coenzyme Q10 [Co Q-10] 10 mg PO DAILY 09/09/21 gabapentin 300 mg PO TIDCM #90 cap 09/11/21 furosemide 40 mg PO DAILY #0 tab 09/12/21 hydrocodone-acetaminophen 2 tab PO Q12H 3 Days #12 tab 09/12/21 prednisone 20 mg PO BID #10 tab 09/12/21 Hospital Course Summary of Care Provided Minutes Spent on Discharge: 32 Hospital Course: 76-year-old male with a history of spinal stenosis presents after weakness in his legs. Patient was on the commode and tried to stand up and noted that his legs are weak. Utilized grab bar but which is very weak and then able to lower himself to the ground but just too weak. Patient was just discharged earlier in the day for worsening back pain and discharged with prednisone for 5 days. Patient has no spinal stenosis and has follow-up appointment with Dr. Shearer on October 31, 2021. Patient since arrival is feeling better. He was seen by therapy and recommend additional therapy. 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 Patient is now open to going to a nursing home facility for further rehab. Patient will be discharged to the transitional care unit in stable condition. Physical Exam Const alert and no apparent distress General Appearance: cooperative Resp normal respiratory effort, no retractions, no use of accessory muscles and clear to auscultation bilaterally Cardio regular rate, regular rhythm, S1 normal heart sound and S2 normal heart sound GI normal to inspection, nondistended, normoactive bowel sounds, soft to palpation, non-tender and non-distended Weight / BMI Weight Weight: 112.7 kg Body Mass Index (BMI) 37.8 ABG / Lab / Microbiology Data Result Diagrams: 09/11/21 23:18 09/11/21 23:18 Laboratory: Laboratory Results - last 24 hr 09/11/21 23:18: WBC 11.6 H, RBC 4.12 L, Hgb 13.5, Hct 39.6 L, MCV 96.1 H, MCH 32.8 H, MCHC 34.1, RDW Std Deviation 47.6 H, RDW Coeff of Susan 13.5, Plt Count 215, MPV 10.2, Immature Gran % (Auto) 3.600 H, Neut % (Auto) 78.8 H, Lymph % (Auto) 9.0 L, Garza % (Auto) 8.5, Eos % (Auto) 0.0, Baso % (Auto) 0.1, Absolute Neuts (auto) 9.2 H, Absolute Lymphs (auto) 1.05, Nucleated RBC % 0 09/11/21 23:18: Sodium 139, Potassium 3.3 L, Chloride 103, Carbon Dioxide 28.0, Anion Gap 8, BUN 40 H, Creatinine 1.53 H, Estim Creat Clear Calc 38.50, Est GFR (MDRD) Af Amer 57 L, Est GFR (MDRD) Non-Af 47 L, BUN/Creatinine Ratio 26.1 H, Glucose 200 H, Calcium 9.0, Magnesium 2.2 09/12/21 08:12: POC Glucose 165 H 09/12/21 11:41: POC Glucose 217 H Meaningful Use Info Meaningful Use Diagnoses (Choose all that apply): None applicable Discharge Plan Admission Admit Date/Time: 09/11/21 22:48 Primary Reason for Your Visit: debility Attending Provider: Coleman Cesar Primary Care Provider: Paulo Nguyen Discharge Orders/Prescriptions Prescriptions: Continued tamsulosin 0.4 mg capsule 0.4 mg PO QHS RF: 0 potassium chloride 10 mEq tablet extended release 20 meq PO DAILY RF: 0 zinc gluconate 50 mg tablet 100 mg PO DAILY RF: 0 losartan 25 mg tablet 25 mg PO DAILY RF: 0 Trulicity 1.5 mg/0.5 mL pen injector 0.75 mg subcut TU RF: 0 Basaglar KwikPen U-100 Insulin 100 unit/mL (3 mL) insulin pen 24 unit subcut BID RF: 0 loratadine 10 mg tablet 10 mg PO DAILY PRN (Reason: allergies) RF: 0 buprenorphine [Butrans] 10 mcg/hour patch weekly 15 mcg transdermal TU RF: 0 clopidogrel 75 mg tablet 75 mg PO DAILY RF: 0 multivitamin with minerals 1 EACH tablet 1 ea PO DAILY RF: 0 metformin 1,000 MG tablet extended release 24hr 1,000 mg PO DAILY RF: 0 cholecalciferol (vitamin D3) 1,000 UNIT tablet 1,000 unit PO DAILY RF: 0 folic acid 0.4 MG tablet 0.4 mg PO DAILY RF: 0 pravastatin 80 mg tablet 80 mg PO DAILY RF: 0 docusate sodium 100 mg capsule 100 mg PO TID RF: 0 acetaminophen 500 MG tablet 500 - 1,000 mg PO Q6H PRN PRN (Reason: Pain Or Fever) RF: 0 oxybutynin chloride 10 MG tablet extended release 24hr 10 mg PO DAILY RF: 0 albuterol sulfate 1 PUFF inhaler 1 - 2 puff INHALATION Q6H PRN PRN (Reason: Dyspnea/Wheezing/Sob) RF: 0 coenzyme Q10 [Co Q-10] 10 mg capsule 10 mg PO DAILY RF: 0 gabapentin 300 mg Capsule 300 mg PO TIDCM Qty: 90 RF: 0 prednisone 20 mg tablet 20 mg PO BID Qty: 10 RF: 0 Changed furosemide 40 mg tablet 40 mg PO DAILY Qty: 0 RF: 0 hydrocodone-acetaminophen 5-325 mg tablet 2 tab PO Q12H 3 Days Qty: 12 RF: 0 Discontinued krill oil 500 mg capsule 500 mg PO DAILY RF: 0 apple cider vinegar 500 mg tablet 500 mg PO DAILY RF: 0 No Action carvedilol 6.25 mg tablet 6.25 mg PO BID RF: 0 aspirin 81 mg tablet,delayed release (DR/EC) 81 mg PO DAILY RF: 0 Referrals / Follow Up: Paulo Nguyen MD [Primary Care Provider] - Within 2 Weeks Flakito Shearer DO [STAFF PHYSICIAN] - 10/28/21 11:00 am (already scheduled) Disposition Disposition (needs filled in before D/C Order can be placed): Residential Facility Charges/Coding Visit Charges OBSV E&M: 01609 Observation care discharge
--- NOTE | 2021-09-12 13:30 | CASEMGMT ---
SOCIAL WORK Referral Source: CM Reason for Consult: Discharge Planning-Referral to TCU Contacted Loretta with TCU to discuss referral. Loretta to review and get back to this worker. Plan: Referral to TCU [employer] MSW, SKIRT MAKER
[2021-09-12] MEDS: Acetaminophen 325 MG Tablet 650 MG PO (15:06)
--- NOTE | 2021-09-12 15:56 | CASEMGMT ---
SOCIAL WORK Spoke with Loretta regarding referral. Loretta reports able to accommodate patient today on TCU. Patient will need COVID-19 test completed prior to discharge. Charge nurse updated. 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
[2021-09-12 16:26] VITALS: BP 132/66; PULSE 62; RESP 20; TEMP 36.4; O2SAT 96
[2021-09-12 16:36] LABS: Bedside Glucose 233 mg/dL (70-110)
--- NOTE | 2021-09-12 17:54 | NURSING ---
Report given to Vane in TCU at this time.
[2021-09-14 08:22] LABS: Bedside Glucose 274 mg/dL (70-110)
== END 2021-09-12 18:40 | disposition skilled nursing facility (03) ==
LOC: ED 22:12 → MS3 23:37
PROVIDERS: Admitting Provider Internal Medicine; Emergency Provider Emergency Medicine; PCP Family Medicine
DX: R53.1 Weakness (principal); R26.2 Difficulty in walking, not elsewhere classified; M48.061 Spinal stenosis, lumbar region without neurogenic claudication; M47.26 Other spondylosis with radiculopathy, lumbar region; I25.10 Atherosclerotic heart disease of native coronary artery without angina pectoris; E11.9 Type 2 diabetes mellitus without complications; I10 Essential (primary) hypertension; E78.5 Hyperlipidemia, unspecified; I25.2 Old myocardial infarction; E66.9 Obesity, unspecified; Z95.5 Presence of coronary angioplasty implant and graft; Z79.899 Other long term (current) drug therapy; Z79.82 Long term (current) use of aspirin; Z79.02 Long term (current) use of antithrombotics/antiplatelets; Z79.4 Long term (current) use of insulin; N40.0 Benign prostatic hyperplasia without lower urinary tract symptoms; E87.6 Hypokalemia
CPT/HCPCS: 36415; 80048; 82962; 83735; 85025; 87426; 96372; 97162; 97165; 99218; 99251; 99285; G0378; G0463

== ENCOUNTER 2021-09-12 18:40 | Inpatient (IN) | payer MEDICARE, OTHER, SELFPAY ==
[2021-02-27 07:06] VITALS: BMI 40.4
[2021-09-12 19:04] VITALS: BP 129/72; PULSE 69; RESP 18; TEMP 36.6; O2SAT 95; BMI 38.0
--- NOTE | 2021-09-12 20:00 | NURSING ---
Pt requests smart phone be charged as battery is at 0% and spouse did not send in leather grader. Offered to charge phone at charging dock in dining area. He would like to wait until someone is nearby designated area to ensure phone is not taken by anyone. Has Buprenorphine patches from home in bag of belongings. Box is not opened and notes count of [address] front of box[address] Stafford is the prescribing physician and date of rx is 09/07. Patches dispensed per [facility] pharmacy. This nurse locked up medication in lock box in room w/ patient watching this nurse do so. Informed pt medication will need to be counted per 2 nurses and a pharmacist will need to verify medication before patches are applied per nursing staff. He verbalizes understanding.
--- NOTE | 2021-09-12 20:34 | NURSING ---
Addendum entered by Ronald Salazar 09/12/21 20:43: Buprenorphen patch x2 observed to right back, in place prior to admission to TCU Original Note: notified of patient med list to discuss ASA 81mgQday and carvedilol 6.25mg BID
--- NOTE | 2021-09-12 20:49 | HP.PCM_ITS ---
HPI - General General Date of Admission: 09/12/21 HPI Narrative 09/11/2021 LUCIA NEGRO, is a 76 Male who presents to [facility] Emergency Department with weakness. Discharged from [facility] same day, lumbar spinal stenosis with lumbar radiculopathy. Trying to shower, felt weak, lowered himself to floor. EMS called. MRI lumbosacral spine unchanged from previous. Patient offered SNF previous hospitalization, but declined, stating he has to go home to pay the bills. 09/11/[address] Shearer considered surgery, but patient high risk, needs better glycemic control. PT/OT for debility. Prednisone, Buprenorphine, Hydrocodone, Morphine for lumbar spinal stenosis with lumbar radiculopathy. Increase Lantus to 25 units twice daily for better sugar control while taking prednisone. 09/12/2021 Admit to TCU with debility, here for rehabilitation, strengthening, prior to discharge home with . [facility] Medical History Atherosclerotic heart disease of [place] coronary artery without angina pectoris DM type 2 (diabetes mellitus, type 2) Essential hypertension Hyperlipidemia NSTEMI (non-ST elevated myocardial infarction) Obesity Pericardial effusion Presence of stent in coronary artery (10/20/19) Home Medications cholecalciferol (vitamin D3) 1,000 unit PO DAILY 10/19/19 [History Last Taken 09/11/21 09:00] folic acid 0.4 mg PO DAILY 10/19/19 [History Last Taken 09/08/21] metformin 1,000 mg PO DAILY 10/19/19 [History Last Taken 09/11/21 09:00] multivitamin with minerals 1 ea PO DAILY 10/19/19 [History Last Taken 09/11/21 09:00] acetaminophen 500 - 1,000 mg PO Q6H PRN PRN 11/01/19 [History Last Taken Unknown] tamsulosin 0.4 mg capsule 0.4 mg PO QHS 07/02/20 [History Last Taken 09/10/21 21:00] albuterol sulfate 1 - 2 puff INHALATION Q6H PRN PRN 12/01/20 [History Last Taken Unknown] oxybutynin chloride 10 mg PO DAILY 12/01/20 [History Last Taken 09/11/21 09:00] aspirin 81 mg tablet,delayed release 81 mg PO DAILY tab 04/08/21 [History Last Taken 09/11/21 09:00] losartan 25 mg tablet 25 mg PO DAILY tab 04/08/21 [History Last Taken 09/11/21 09:00] potassium chloride 10 mEq tablet,extended release 20 meq PO DAILY tab 04/08/21 [History Last Taken 09/11/21 09:00] zinc gluconate 50 mg tablet 100 mg PO DAILY tab 04/08/21 [History Last Taken 09/11/21 09:00] carvedilol 6.25 mg tablet 6.25 mg PO BID tab 05/15/21 [History Last Taken 09/11/21 09:00] clopidogrel 75 mg tablet 75 mg PO DAILY tab 05/15/21 [History Last Taken 09/11/21 09:00] dulaglutide 1.5 mg/0.5 mL subcutaneous pen injector 0.75 mg SUBCUT TU ml 05/15/21 [History Last Taken 09/08/21 08:00] pravastatin 80 mg tablet 80 mg PO DAILY 05/15/21 [History Last Taken 09/10/21 21:00] buprenorphine 10 mcg/hour weekly transdermal patch 15 mcg TRANSDERMAL TU 08/06/21 [History Last Taken 09/08/21] docusate sodium 100 mg capsule 100 mg PO TID cap 08/06/21 [History Last Taken 09/11/21 13:00] insulin glargine 100 unit/mL (3 mL) subcutaneous pen 24 unit SUBCUT BID ml 08/06/21 [History Last Taken 09/08/21] loratadine 10 mg tablet 10 mg PO DAILY PRN 08/06/21 [History Last Taken Unknown] coenzyme Q10 [Co Q-10] 10 mg PO DAILY 09/09/21 [History Last Taken 09/11/21 09:00] furosemide 40 mg PO DAILY #0 tab 09/12/21 [Rx Last Taken 09/08/21] gabapentin 300 mg PO TIDCM 09/12/21 [History Last Taken Unknown] hydrocodone-acetaminophen 2 tab PO Q12H 3 Days #12 tab 09/12/21 [Rx Last Taken Unknown] prednisone 20 mg PO BID 09/12/21 [History Last Taken 09/12/21 08:29] Allergy/AdvReac Type Severity Reaction Status Date / Time lisinopril AdvReac cough Verified 09/11/21 19:47 Surgical History H/O knee surgery History of back surgery History of left heart catheterization (10/20/19) Presence of coronary angioplasty implant and graft (~10/20/19) Social History household members: spouse Smoking Status: Never smoker alcohol intake: current alcohol intake frequency: a few times a month Alcohol type: beer substance use type: does not use caffeine: No ROS Constitutional Constitutional: Denies chills, fever(s) or weight gain ENT HEENT: Denies headache(s), nasal congestion or nasal discharge Cardiovascular Cardiovascular: Denies chest pain or palpitations Respiratory/Chest Respiratory/Chest: Denies cough, excessive phlegm production or shortness of breath with exertion Gastrointestinal Gastrointestinal: Denies abdominal pain, nausea or vomiting Genitourinary Genitourinary: Denies dysuria Musculoskeletal Musculoskeletal: Denies joint pain or joint swelling Integumentary Integumentary: Denies rash or wounds Neurologic Neurologic: Denies focal weakness, numbness or tingling Psychiatric Psychiatric: Denies anxiety, auditory hallucinations, depression, homicidal ideation or suicidal ideation Physical Exam Const alert and oriented x3 General Appearance: cooperative HEENT normocephalic Eyes PERRL and EOMs intact bilaterally Neck supple, no JVD and no carotid bruits Resp normal respiratory effort, normal air movement and clear to auscultation bilaterally Cardio regular rate and regular rhythm GI normal to inspection, nondistended, normoactive bowel sounds, non-tender and no n-distended Extremity normal capillary refill General Extremity: Negative for edema Skin no rashes or lesions noted General Skin Exam: no breakdown Psych affect normal Appearance: appropriate Results Lab / Micro Data Result Diagrams: 09/13/21 04:21 09/13/21 04:21 Assessment & Plan Assessment/Plan (1) Debility: (2) Weakness: (3) Spinal stenosis of lumbar region with radiculopathy: (4) Vitamin D deficiency: (5) Diabetes mellitus: (6) Benign prostate hyperplasia: (7) Overactive bladder: (8) Coronary artery disease: (9) Chronic diastolic congestive heart failure: (10) Hypokalemia: (11) Hyperlipidemia: (12) Allergic rhinitis: (13) Diabetic neuropathy: PLAN: 76 year old male with below past medical history hospitalized for debility secondary to lumbar spinal stenosis with radiculopathy, admitted to TCU, here for rehablitation, strengthening, prior to discharge home with . * Debility - PT/OT. * Pain - Tylenol 1000mg q6h prn pain (1-3), Tramadol 50mg q6h prn pain (4-5), Oxycodone 5mg q4h prn pain (6-10), Butrans patch 15mg td qweek. * Muscle spasm - Baclofen 10mg tid prn. * Bowel - Miralax 17gm daily, Senna/colace 2 tablets twice daily, Dulcolax 10mg daily prn. * Adult immunization - Administer prevnar 13, pneumovax 23, fluzone, covid19 vaccine as appropriate. * DVT prophylaxis - Hold, dual antiplatelet therapy. * Shortness of breath - Albuterol 1-2 puff Q6h prn. * Coronary artery disease status post stent - Coreg 6.25mg bid, Losartan 25mg daily, Plavix 75mg daily, Aspirin 81mg daily. * Chronic diastolic congestive heart failure - Coreg 6.25mg bid, Losartan 25mg daily, Furosemide 40mg daily. * Vitamin D deficiency - D3 25mcg daily. * Diabetes Mellitus II - Metformin 1000mg daily, Trulicity 0.75mg qweek, Lantus 24 units bid. * Folate deficiency - Folic acid 0.4mg daily. * Diabetic neuropathy - Gabapentin 300mg tidcm. * Allergic Rhinitis - Loratadine 10mg daily prn. * Nutrition - MVI daily. * Overactive bladder - Oxybutynin 10mg daily. * Hypokalemia - Kcl 20meq daily. * Hyperlipidemia - Pravastatin 80mg qhs. * Lumbar spinal stenosis with radiculopathy - Prednisone 20mg bid thru 09/17/2021. * BPH - Tamsulosin 0.4mg qhs.
[2021-09-12] MEDS: Carvedilol 6.25 MG Tablet PO (21:53)
[2021-09-12] MEDS: Tamsulosin HCl 0.4 MG Capsule PO (21:53)
[2021-09-12 22:45] VITALS: PULSE 63; RESP 16; O2SAT 99
[2021-09-12] MEDS: traMADol 50 MG Tablet PO (22:52)
[2021-09-12] MEDS: Senna/Docusate Sodium 1 Tablet 2 TABLET PO (22:52)
--- NOTE | 2021-09-13 02:13 | NURSING ---
Pt calls questioning when he will receive his insulin. Informed pt he will not receive any insulin at this time. Had last dose of Lantus yesterday am and Humalog 14 units, scheduled and sliding scale doses, at 1425 for blood sugar of 233. Fasting blood sugar to be checked this am. Will continue to monitor. Pt asks if cell phone can be changed on dock in dining room. This nurse placed phone on fern gatherer as phone is currently at 20%.
[2021-09-13] MEDS: oxyCODONE 5 MG Tablet PO ×3 (02:22→21:33)
[2021-09-13 04:32] LABS: Absolute Lymphocyte Count 1.17 X10^3/uL (0.83-4.51); Absolute Neutrophil Count 7.1 X10^3/uL (2.0-7.7); Basophil# 0.01 X10^3/uL; Basophil% 0.1 % (0-1); Hemoglobin 12.8 g/dL (13.0-16.5); Lymphocyte # 1.17 X10^3/ul (0.83-4.51); Lymphocyte % 12.7 % (19-41); Mean Corp Hgb Conc 34.6 g/dL (32-36); Mean Corpuscular Volume 95.4 fL (80-94); Monocyte# 0.82 X10^3/uL; Monocyte% 8.9 % (0-10); NRBC Flagged by Analyzer 0 % (0-5); Neutrophil # 7.06 X10^3/uL (2.7-7.7); Platelet Count 189 K/mm3 (150-450); RBC Distribution Width CV 13.5 % (11.6-14.6); RBC Distribution Width SD 47.6 fl (35.1-43.9); Red Blood Count 3.88 M/mm3 (4.6-6.2); White Blood Count 9.2 K/mm3 (4.4-11.0)
[2021-09-13 04:59] LABS: Anion Gap 6 (5-15); BUN 38 mg/dL (7-18); Calcium,Total 8.2 mg/dL (8.5-10.1); Chloride 103 mmol/L (98-107); Creatinine, Serum 1.31 mg/dL (0.70-1.30); EST Glomerular Filtration Rate 56 mL/min (>60); Est Glom Filt Rate - Afr Amer 68 mL/min (>60); Estimated Creatinine Clearance 44.96 ml/min; Glucose 238 mg/dL (74-106); Potassium 3.9 mmol/L (3.5-5.1); Sodium Level 137 mmol/L (136-145)
[2021-09-13] MEDS: Menthol/Lanolin/Calamine/Znox 113 GM Tube 1 APPLIC TOPICAL ×2 (05:15→17:35)
[2021-09-13] MEDS: Baclofen 10 MG Tablet PO (05:15)
[2021-09-13] MEDS: Polyethylene Glycol 3350 17 GM PACKET PO (05:15)
[2021-09-13] MEDS: Senna/Docusate Sodium 1 Tablet 2 TABLET PO (05:16)
[2021-09-13] MEDS: Furosemide 40 MG Tablet PO (05:19)
[2021-09-13] MEDS: Losartan Potassium 25 MG Tablet PO (05:19)
[2021-09-13] MEDS: Cholecalciferol (VIT D3) 25 MCG TABLET (1,000 UNITS) PO (05:20)
[2021-09-13] MEDS: Clopidogrel Bisulfate 75 MG Tablet PO (05:20)
[2021-09-13] MEDS: Tolterodine Tartrate 2 MG CAP.SA PO (05:21)
--- NOTE | 2021-09-13 05:26 | NURSING ---
Fasting glucose result via lab draw 238, lantus administered at this time as ordered. No s/sx hyperglycemia observed or reported. Pt. states my blood sugars have been all out of whack since the prednisone started. (Glucometer did not transfer HS blood glucose at 21:00, result was 267). Pleasant and cooperative, resting in bed watching television states I have always been an early riser. No distress observed or reported. Call light in reach.
[2021-09-13] MEDS: Gabapentin 300 MG Capsule PO ×3 (08:29→17:34)
[2021-09-13] MEDS: predniSONE 20 MG Tablet PO ×2 (08:29→17:34)
[2021-09-13] MEDS: Folic Acid 1 MG Tablet 0.5 MG PO (08:30)
[2021-09-13] MEDS: Aspirin E.C. 81 MG Tablet PO (08:30)
[2021-09-13] MEDS: Carvedilol 6.25 MG Tablet PO ×2 (08:31→17:34)
[2021-09-13] MEDS: metFORMIN (XR) 500 MG Tablet 1000 MG PO (08:32)
[2021-09-13] MEDS: Multivitamins,Ther W-Minerals Tablet 1 TABLET PO (08:32)
[2021-09-13] MEDS: Potassium Chloride Oral Tablet 20 MEQ PO (08:32)
[2021-09-13 08:35] VITALS: BP 132/77; PULSE 75
[2021-09-13 11:21] LABS: Bedside Glucose 304 mg/dL (70-110)
[2021-09-13] MEDS: Tuberculin,Purif.prot.deriv. 50 TU/ML Vial 0.1 ML ID (11:39)
[2021-09-13] MEDS: BUPRENORPHINE 1 EACH PATCH.TDWK TD (11:39)
--- NOTE | 2021-09-13 11:43 | NURSING ---
wasted 2- 5 mg butrans patches that pt came with from acute side, daya witness
--- NOTE | 2021-09-13 12:13 | NURSING ---
BS 304, dr cardoza updated, new order humalog 7 units now and with meals.
[2021-09-13] MEDS: Insulin Lispro 100 UNIT/ML INSULN.PEN 7 UNIT SC ×2 (12:41→17:33)
[2021-09-13 15:48] VITALS: BP 135/68; PULSE 78; RESP 18; TEMP 36.1; O2SAT 98
[2021-09-13 17:35] LABS: Bedside Glucose 367 mg/dL (70-110)
[2021-09-13 20:36] LABS: Bedside Glucose 388 mg/dL (70-110)
--- NOTE | 2021-09-13 20:52 | NURSING ---
notified via telephone of HS blood glucose level result 388. New order received for Humalog 10units x1 subq
[2021-09-13] MEDS: Insulin Lispro 100 UNIT/ML INSULN.PEN 10 UNIT SC (21:27)
[2021-09-13] MEDS: Tamsulosin HCl 0.4 MG Capsule PO (21:30)
[2021-09-13] MEDS: Pravastatin 80 MG Tablet PO (21:30)
[2021-09-13 21:55] LABS: Bedside Glucose 336 mg/dL (70-110)
[2021-09-13 22:00] VITALS: PULSE 61; RESP 18; O2SAT 99
[2021-09-13 23:21] LABS: Bedside Glucose 274 mg/dL (70-110)
[2021-09-14] MEDS: oxyCODONE 5 MG Tablet PO (04:31)
[2021-09-14] MEDS: Furosemide 40 MG Tablet PO (04:32)
[2021-09-14] MEDS: Losartan Potassium 25 MG Tablet PO (04:32)
[2021-09-14] MEDS: Tolterodine Tartrate 2 MG CAP.SA PO (04:32)
[2021-09-14] MEDS: Clopidogrel Bisulfate 75 MG Tablet PO (04:32)
[2021-09-14] MEDS: Cholecalciferol (VIT D3) 25 MCG TABLET (1,000 UNITS) PO (04:32)
[2021-09-14] MEDS: Menthol/Lanolin/Calamine/Znox 113 GM Tube 1 APPLIC TOPICAL ×2 (04:33→17:31)
[2021-09-14 05:06] VITALS: BP 124/70; PULSE 62
[2021-09-14] MEDS: Baclofen 10 MG Tablet PO (06:38)
[2021-09-14 06:41] LABS: Bedside Glucose 208 mg/dL (70-110)
[2021-09-14] MEDS: Acetaminophen 500 MG Tablet 1000 MG PO (06:45)
[2021-09-14] MEDS: Gabapentin 300 MG Capsule PO ×3 (08:31→17:34)
[2021-09-14] MEDS: Senna/Docusate Sodium 1 Tablet PO ×2 (08:31→17:32)
[2021-09-14] MEDS: metFORMIN (XR) 500 MG Tablet 1000 MG PO (08:32)
[2021-09-14] MEDS: Aspirin E.C. 81 MG Tablet PO (08:32)
[2021-09-14] MEDS: Folic Acid 1 MG Tablet 0.5 MG PO (08:33)
[2021-09-14] MEDS: Potassium Chloride Oral Tablet 20 MEQ PO (08:33)
[2021-09-14] MEDS: predniSONE 20 MG Tablet PO ×2 (08:34→17:34)
[2021-09-14] MEDS: Multivitamins,Ther W-Minerals Tablet 1 TABLET PO (08:34)
[2021-09-14] MEDS: Carvedilol 6.25 MG Tablet PO ×2 (08:35→17:34)
[2021-09-14] MEDS: Insulin Lispro 100 UNIT/ML INSULN.PEN 7 UNIT SC ×2 (08:35→14:06)
--- NOTE | 2021-09-14 09:08 | NURSING ---
Spoke with Pharmacist and Dr. Shen regarding Trulicity. It is recommended that Trulicity be held while on TCU d/t blood sugars are not well regulated at this time because of Prednisone use and Insulin is being adjusted. Dr. Shen agreed. Order for Trulicy cancelled at this time.
[2021-09-14 11:05] LABS: Bedside Glucose 273 mg/dL (70-110)
--- NOTE | 2021-09-14 12:15 | CASEMGMT ---
Social Work Met with patient for initial assessment. Discussed code status. Pt confirmed full code. MOLST form completed, communication to , placed in chart. Explained Medicare benefit. Encouraged to contact secondary insurance to ensure copay coverage. Pt reports he is active with Dr. Stafford and has hx of falls r/t to weakness. Pt assists at home - cannot assist him. The goal is for pt to return home at [facility]. SW to continue to follow for discharge planning. JOSE Castro SURGERY TECHNICIAN
--- NOTE | 2021-09-14 15:29 | NURSING ---
Resident and spouse, Coty, notified of staff member testing positive for COVID.
[2021-09-14 15:38] VITALS: BP 149/71; PULSE 73; RESP 16; TEMP 36.7; O2SAT 95
--- NOTE | 2021-09-14 15:43 | PHA.CONS_ITS ---
Progress Note - Pharmacy Subjective: TCU Admission Objective: Allergies lisinopril Adverse Reaction (Verified 09/11/21 19:47) cough Current Medications Generic Name Dose Route Start Last Admin Trade Name Ashley PRN Reason Stop Dose Admin Acetaminophen 1,000 mg 09/12/21 21:11 09/14/21 06:45 Acetaminophen 500 Mg Tablet PO 1,000 mg Q6H PRN PRN Administration Pain Score 1-3 Albuterol Sulfate 1 - 2 puff 09/12/21 22:10 Albuterol Sulfate 8 Gm Inhaler (60 Puffs) INHALATION Q6H PRN PRN Dyspnea/Wheezing/Sob Aspirin 81 mg 09/13/21 08:00 09/14/21 08:32 Aspirin E.C. 81 Mg Tablet PO 81 mg DAILYCM ARI Administration Baclofen 10 mg 09/12/21 21:09 09/14/21 06:38 Baclofen 10 Mg Tablet PO 10 mg TID PRN PRN Administration MUSCLE SPASM Bisacodyl 10 mg 09/12/21 21:09 Bisacodyl 5 Mg Tablet PO DAILY PRN Constipation Calamine/Phenol 1 applic 09/13/21 06:00 09/14/21 04:33 Menthol/Lanolin/Calamine/Znox 113 Gm Tube TOPICAL 1 applic BID ARI Administration Protocol Carvedilol 6.25 mg 09/13/21 08:00 09/14/21 08:35 Carvedilol 6.25 Mg Tablet PO 6.25 mg BIDCM ARI Administration Cholecalciferol 25 mcg 09/13/21 06:00 09/14/21 04:32 Cholecalciferol (Vit D3) 25 Mcg Tablet (1,000 Units) PO 25 mcg DAILY ARI Administration Clopidogrel Bisulfate 75 mg 09/13/21 06:00 09/14/21 04:32 Clopidogrel Bisulfate 75 Mg Tablet PO 75 mg DAILY ARI Administration Folic Acid 0.5 mg 09/13/21 08:00 09/14/21 08:33 Folic Acid 1 Mg Tablet PO 0.5 mg BREAKFAST ARI Administration Furosemide 40 mg 09/13/21 06:00 09/14/21 04:32 Furosemide 40 Mg Tablet PO 40 mg DAILY ARI Administration Gabapentin 300 mg 09/13/21 07:45 09/14/21 14:07 Gabapentin 300 Mg Capsule PO 300 mg TIDCM ARI Administration Insulin Glargine 24 units 09/13/21 06:00 09/14/21 06:39 Insulin Glargine 100 Units/Ml Pen SC 24 u BID ARI Administration Insulin Human Lispro 7 unit 09/13/21 16:45 09/14/21 14:06 Insulin Lispro 100 Unit/Ml Insuln.Pen SC 7 u TIDAC ARI Administration Loratadine 10 mg 09/12/21 19:42 Loratadine 10 Mg Tablet PO DAILY PRN PRN allergies Losartan Potassium 25 mg 09/13/21 06:00 09/14/21 04:32 Losartan Potassium 25 Mg Tablet PO 25 mg DAILY ARI Administration Metformin HCl 1,000 mg 09/13/21 08:00 09/14/21 08:32 Metformin (Xr) 500 Mg [facility] Multivitamins/Minerals 1 tablet 09/13/21 08:00 09/14/21 08:34 Multivitamins,Ther W-Minerals Tablet PO 1 tablet BREAKFAST [facility] Administration Oxycodone HCl 5 mg 09/12/21 21:09 09/14/21 04:31 Oxycodone 5 Mg Tablet PO 5 mg Q4H PRN PRN Administration Pain Score 6-10 Polyethylene Glycol 17 gm 09/13/21 06:00 09/14/21 04:33 Polyethylene Glycol 3350 17 Gm Packet PO Not Given DAILY [facility] Potassium Chloride 20 meq 09/13/21 08:00 09/14/21 08:33 Potassium Chloride Oral Tablet 20 Meq [facility] Administration Pravastatin Sodium 80 mg 09/13/21 22:00 09/13/21 21:30 Pravastatin 80 Mg Tablet PO 80 mg QHS [facility] Administration Prednisone 20 mg 09/13/21 08:00 09/14/21 08:34 Prednisone 20 Mg Tablet PO 09/17/21 18:00 [facility] Administration Senna/Docusate Sodium 1 tablet 09/14/21 07:45 09/14/21 08:31 Senna/Docusate Sodium 1 Tablet PO 1 tablet BID [facility] Administration Tamsulosin HCl 0.4 mg 09/12/21 22:00 09/13/21 21:30 Tamsulosin Hcl 0.4 Mg Capsule PO 0.4 mg QHS [facility] Administration Tolterodine Tartrate 2 mg 09/13/21 06:00 09/14/21 04:32 Tolterodine Tartrate 2 Mg Cap.Sa PO 2 mg DAILY [facility] Administration Tramadol HCl 50 mg 09/12/21 21:09 09/12/21 22:52 Tramadol 50 Mg Tablet PO 50 mg Q6H PRN PRN Administration Pain Score 4-5 Tuberculin PPD 0.1 ml 09/20/21 10:00 Tuberculin,Purif.Prot.Deriv. 50 Tu/Ml Vial ID 09/20/21 10:01 X1 ONE Problem List (Last Reviewed 09/12/21 @ 20:[address] Nj Shen MD) Diabetic neuropathy (Acute) Allergic rhinitis (Acute) Hyperlipidemia (Acute) Hypokalemia (Acute) Chronic diastolic congestive heart failure (Chronic) Coronary artery disease (Acute) Overactive bladder (Acute) Benign prostate hyperplasia (Acute) Diabetes mellitus (Acute) Vitamin D deficiency (Acute) Spinal stenosis of lumbar region with radiculopathy (Acute) Weakness (Acute) Debility (Acute) Vital Signs Temp Pulse Resp BP Pulse Ox 98.0 F 73 16 149/71 H 95 09/14/21 15:38 09/14/21 15:38 09/14/21 15:38 09/14/21 15:38 09/14/21 15:38 Oxygen Delivery Method Room Air Weight: 113.398 kg Body Mass Index (BMI) 38.0 Sodium 137 mmol/L (136-145) 09/13/21 04:21 Potassium 3.9 mmol/L (3.5-5.1) 09/13/21 04:21 Chloride 103 mmol/L (98-107) 09/13/21 04:21 Carbon Dioxide 28.0 mmol/L (21.0-32.0) 09/13/21 04:21 Anion Gap 6 (5-15) 09/13/21 04:21 BUN 38 mg/dL (7-18) H 09/13/21 04:21 Creatinine 1.31 mg/dL (0.70-1.30) H 09/13/21 04:21 Est GFR (MDRD) Af Amer 68 mL/min (>60) 09/13/21 04:21 Est GFR (MDRD) Non-Af 56 mL/min (>60) L 09/13/21 04:21 BUN/Creatinine Ratio 29.0 RATIO (10-20) H 09/13/21 04:21 Glucose 238 mg/dL (74-106) H 09/13/21 04:21 Assessment/Plan: 1. Pain: acetaminophen 1000mg PO Q6H PRN pain 1-3/10, tramadol 50mg PO Q6H PRN pain 4-5/10, oxycodone 5mg PO Q4H PRN pain 6-10/10 and buprenorphine 15mcg/hr 1patch TD weekly. Please continue to monitor for increased pain, PRN usage, renal function, constipation, skin irritation and respiratory depression. 2. Muscle spasm: baclofen 10mg PO TID PRN muscle spasms. Please continue to monitor for muscle spasms, drowsiness and confusion. 3. CHF/CAD: carvedilol 6.25mg PO BIDCM, losartan 25mg PO daily, clopidogrel 75mg PO daily, aspirin 81mg PO DAILYCM, and furosemide 40mg PO daily. Please continue to monitor BP (last 149/71), HR (last 73), renal function, potassium (last 3.9mmol/L), sodium (last 137mmol/L), S/S of bleeding, hemoglobin (last 12.8g/dL) and edema. 4. Lumbar spinal stenosis with radiculopathy: prednisone 20mg PO BIDCM thru 09/17/21. Please continue to monitor glucose (last 273mg/dL), S/S of infection and upset stomach. 5. Diabetes mellitus II: metformin XL 1000mg PO DAILYCM, insulin glargine 24units SC BID and insulin lispro 7units SC TIDAC. Please continue to monitor hemoglobin A1c (last 7.3% 08/18/21), glucose, renal function and S/S of hypoglycemia. 6. Diabetic neuropathy: gabapentin 300mg PO TIDCM. Please continue to monitor for confusion and renal function. *7. Hyperlipidemia: pravastatin 80mg PO QHS. Please consider ordering a lipid panel if clinically appropriate. Last panel from 10/20/2019. Thanks. Please continue to monitor for muscle pain. 8. BPH: tamsulosin 0.4mg PO QHS. Please continue to monitor for S/S of BPH and BP. 9. Overactive bladder: tolterodine 2mg PO daily. Please continue to monitor for S/S of overactive bladder and dry mouth. 10. Hypokalemia: potassium chloride 20mEq PO DAILYCM. Please continue to monitor potassium levels. 11. Shortness of breath: albuterol 90mcg/actuation 1-2 inhalation Q6H PRN dyspnea/wheezing/SOB. Please continue to monitor for PRN usage. 12. Allergic rhinitis: loratadine 10mg PO daily PRN allergies. Please continue to montior for allergies. *13. Vitamin D deficiency/folate deficiency/nutrition: cholecalciferol 25mcg PO daily, folic acid 0.5mg PO daily and multivitamin with minerals 1T PO breakfast. Please consider order a vitamin D level if clinically appropriate. Patient does not have one in the chart. Thanks. Psychotropic Medications: None Unnecessary Medications: None Bowel Regimen: Miralax 17gm PO daily, senna/docusate 1T PO BID and bisacodyl 10mg PO daily PRN constipation. Please continue to monitor for constipation and PRN usage. Date of Note:: 09/14/21
[2021-09-14 16:20] LABS: Bedside Glucose 352 mg/dL (70-110)
[2021-09-14] MEDS: Insulin Lispro 100 UNIT/ML INSULN.PEN 15 UNIT SC ×2 (17:27→22:17)
[2021-09-14] MEDS: Insulin Lispro 100 UNIT/ML INSULN.PEN 10 UNIT SC (17:27)
[2021-09-14 21:26] LABS: Bedside Glucose 437 mg/dL (70-110)
--- NOTE | 2021-09-14 22:02 | NURSING ---
Notified Dr. Shen of elevated blood sugar. Order to increase lantus and scheduled humalog doses and give one time dose 15 units humalog now.
[2021-09-14] MEDS: Pravastatin 80 MG Tablet PO (22:16)
[2021-09-14] MEDS: Tamsulosin HCl 0.4 MG Capsule PO (22:16)
[2021-09-15] MEDS: oxyCODONE 5 MG Tablet PO ×2 (05:06→19:52)
[2021-09-15] MEDS: Acetaminophen 500 MG Tablet 1000 MG PO ×2 (05:06→19:52)
[2021-09-15] MEDS: Tolterodine Tartrate 2 MG CAP.SA PO (05:11)
[2021-09-15] MEDS: Losartan Potassium 25 MG Tablet PO (05:12)
[2021-09-15] MEDS: Senna/Docusate Sodium 1 Tablet PO ×2 (05:12→17:49)
[2021-09-15] MEDS: Furosemide 40 MG Tablet PO (05:12)
[2021-09-15] MEDS: Clopidogrel Bisulfate 75 MG Tablet PO (05:12)
[2021-09-15] MEDS: Cholecalciferol (VIT D3) 25 MCG TABLET (1,000 UNITS) PO (05:12)
[2021-09-15] MEDS: Menthol/Lanolin/Calamine/Znox 113 GM Tube 1 APPLIC TOPICAL ×2 (05:13→17:48)
[2021-09-15 05:16] VITALS: BP 147/74; PULSE 56
[2021-09-15 06:35] LABS: Bedside Glucose 204 mg/dL (70-110)
[2021-09-15] MEDS: Aspirin E.C. 81 MG Tablet PO (08:03)
[2021-09-15] MEDS: Gabapentin 300 MG Capsule PO ×3 (08:11→17:48)
[2021-09-15] MEDS: Insulin Lispro 100 UNIT/ML INSULN.PEN 17 UNIT SC ×3 (08:11→17:48)
[2021-09-15] MEDS: Carvedilol 6.25 MG Tablet PO ×2 (08:11→17:48)
[2021-09-15] MEDS: Folic Acid 1 MG Tablet 0.5 MG PO (08:12)
[2021-09-15] MEDS: Potassium Chloride Oral Tablet 20 MEQ PO (08:13)
[2021-09-15] MEDS: metFORMIN (XR) 500 MG Tablet 1000 MG PO (08:13)
[2021-09-15] MEDS: predniSONE 20 MG Tablet PO ×2 (08:14→17:48)
[2021-09-15] MEDS: Multivitamins,Ther W-Minerals Tablet 1 TABLET PO (08:14)
[2021-09-15 08:28] VITALS: BP 130/92; PULSE 66
[2021-09-15 11:31] LABS: Bedside Glucose 197 mg/dL (70-110)
[2021-09-15 14:39] VITALS: BP 116/67; PULSE 63; RESP 16; TEMP 36.5; O2SAT 98
--- NOTE | 2021-09-15 14:57 | NURSING ---
Pt requests an order for compression stocking for BLE edema. Suggested GRETEL wraps d/t extent of edema and pt is agreeable. Note left for Dr. Shen to address.
[2021-09-15 16:41] LABS: Bedside Glucose 197 mg/dL (70-110)
[2021-09-15] MEDS: Pravastatin 80 MG Tablet PO (19:58)
[2021-09-15] MEDS: Tamsulosin HCl 0.4 MG Capsule PO (19:58)
[2021-09-15 20:07] VITALS: PULSE 62; RESP 16; O2SAT 99
[2021-09-15 22:00] LABS: Bedside Glucose 212 mg/dL (70-110)
[2021-09-16 05:52] VITALS: BP 136/81; PULSE 55
[2021-09-16] MEDS: Clopidogrel Bisulfate 75 MG Tablet PO (05:53)
[2021-09-16] MEDS: oxyCODONE 5 MG Tablet PO ×2 (05:53→23:14)
[2021-09-16] MEDS: Senna/Docusate Sodium 1 Tablet PO ×2 (05:53→17:03)
[2021-09-16] MEDS: Furosemide 40 MG Tablet PO (05:53)
[2021-09-16] MEDS: Baclofen 10 MG Tablet PO (05:53)
[2021-09-16] MEDS: Tolterodine Tartrate 2 MG CAP.SA PO (05:53)
[2021-09-16] MEDS: Losartan Potassium 25 MG Tablet PO (05:53)
[2021-09-16] MEDS: Menthol/Lanolin/Calamine/Znox 113 GM Tube 1 APPLIC TOPICAL ×2 (05:54→17:06)
[2021-09-16] MEDS: Cholecalciferol (VIT D3) 25 MCG TABLET (1,000 UNITS) PO (05:54)
[2021-09-16 06:26] LABS: Bedside Glucose 188 mg/dL (70-110)
[2021-09-16] MEDS: Insulin Lispro 100 UNIT/ML INSULN.PEN 17 UNIT SC ×3 (08:12→17:03)
[2021-09-16] MEDS: Aspirin E.C. 81 MG Tablet PO (08:13)
[2021-09-16] MEDS: Folic Acid 1 MG Tablet 0.5 MG PO (08:13)
[2021-09-16] MEDS: Carvedilol 6.25 MG Tablet PO ×2 (08:13→17:02)
[2021-09-16] MEDS: Gabapentin 300 MG Capsule PO ×3 (08:13→17:02)
[2021-09-16] MEDS: predniSONE 20 MG Tablet PO ×2 (08:14→17:02)
[2021-09-16] MEDS: Multivitamins,Ther W-Minerals Tablet 1 TABLET PO (08:14)
[2021-09-16] MEDS: metFORMIN (XR) 500 MG Tablet 1000 MG PO (08:14)
[2021-09-16] MEDS: Potassium Chloride Oral Tablet 20 MEQ PO (08:14)
--- NOTE | 2021-09-16 09:21 | CASEMGMT ---
Social Work IDT met with patient and and for care plan meeting. Discussed patient's progress in PT/OT and nursing. Pt progressing well. Explained Medicare benefit. Encouraged to contact secondary insurance to ensure copay coverage. Pt was assisting with LE care at home prior and pt reporting frequent falls r/t leg weakness. There is no family close to assist pt or . The goal is for pt to return home at [facility]. SW to continue to follow for discharge planning. Kira Hay, KILN HAND AUTOMATIC STEEL TIE ADJUSTER
[2021-09-16 10:00] VITALS: PULSE 66; RESP 18; O2SAT 95
[2021-09-16 10:45] LABS: Bedside Glucose 247 mg/dL (70-110)
--- NOTE | 2021-09-16 12:24 | CASEMGMT ---
Social Work BIMS(14) and PHQ-9(5) completed this date. Pt showing some signs of depression on the PHQ-9. Pt attributes his symptoms to being in TCU, he is wanting to get home as soon as possible. He states he understands he needs to be here, but wants to get home to help his . He states that they help each other. SW offered support to pt. NATALIIA Mayfield
[2021-09-16 15:28] VITALS: BP 126/67; PULSE 77; RESP 14; TEMP 36.2; O2SAT 97
[2021-09-16 16:01] LABS: Bedside Glucose 344 mg/dL (70-110)
[2021-09-16] MEDS: Insulin Lispro 100 UNIT/ML INSULN.PEN SC (18:06)
[2021-09-16] MEDS: Tamsulosin HCl 0.4 MG Capsule PO (20:27)
[2021-09-16] MEDS: Pravastatin 80 MG Tablet PO (20:28)
[2021-09-16 21:30] LABS: Bedside Glucose 272 mg/dL (70-110)
[2021-09-17] MEDS: Baclofen 10 MG Tablet PO ×2 (00:13→20:49)
[2021-09-17] MEDS: oxyCODONE 5 MG Tablet PO ×2 (03:14→17:55)
[2021-09-17 06:26] LABS: Bedside Glucose 178 mg/dL (70-110)
[2021-09-17] MEDS: Senna/Docusate Sodium 1 Tablet PO ×2 (06:26→17:46)
[2021-09-17] MEDS: Cholecalciferol (VIT D3) 25 MCG TABLET (1,000 UNITS) PO (06:27)
[2021-09-17] MEDS: Furosemide 40 MG Tablet PO (06:27)
[2021-09-17] MEDS: Losartan Potassium 25 MG Tablet PO (06:27)
[2021-09-17] MEDS: Clopidogrel Bisulfate 75 MG Tablet PO (06:27)
[2021-09-17] MEDS: Tolterodine Tartrate 2 MG CAP.SA PO (06:27)
[2021-09-17] MEDS: Menthol/Lanolin/Calamine/Znox 113 GM Tube 1 APPLIC TOPICAL ×2 (06:30→17:46)
[2021-09-17] MEDS: traMADol 50 MG Tablet PO (07:49)
[2021-09-17] MEDS: Acetaminophen 500 MG Tablet 1000 MG PO (07:50)
[2021-09-17] MEDS: Gabapentin 300 MG Capsule PO ×3 (07:51→17:44)
[2021-09-17] MEDS: Insulin Lispro 100 UNIT/ML INSULN.PEN 20 UNIT SC ×3 (07:51→17:43)
[2021-09-17] MEDS: Folic Acid 1 MG Tablet 0.5 MG PO (07:52)
[2021-09-17] MEDS: Aspirin E.C. 81 MG Tablet PO (07:52)
[2021-09-17] MEDS: Multivitamins,Ther W-Minerals Tablet 1 TABLET PO (07:53)
[2021-09-17] MEDS: Potassium Chloride Oral Tablet 20 MEQ PO (07:53)
[2021-09-17] MEDS: metFORMIN (XR) 500 MG Tablet 1000 MG PO (07:53)
[2021-09-17] MEDS: predniSONE 20 MG Tablet PO ×2 (07:53→17:45)
[2021-09-17] MEDS: Carvedilol 6.25 MG Tablet PO ×2 (07:55→17:44)
[2021-09-17 07:57] VITALS: BP 127/64; PULSE 66
[2021-09-17 11:10] LABS: Bedside Glucose 212 mg/dL (70-110)
[2021-09-17 13:38] VITALS: BP 109/59; PULSE 59; RESP 16; TEMP 36.3; O2SAT 98
--- NOTE | 2021-09-17 15:29 | MDS.RN ---
Pain interview for eloy 09/19/21
[2021-09-17] MEDS: Tamsulosin HCl 0.4 MG Capsule PO (20:49)
[2021-09-17] MEDS: Pravastatin 80 MG Tablet PO (20:49)
[2021-09-17 22:05] LABS: Bedside Glucose 212 mg/dL (70-110)
[2021-09-17 22:21] LABS: Bedside Glucose 219 mg/dL (70-110)
[2021-09-17 23:20] VITALS: PULSE 58; RESP 14; O2SAT 98
[2021-09-18] MEDS: oxyCODONE 5 MG Tablet PO ×2 (00:32→20:23)
[2021-09-18] MEDS: Losartan Potassium 25 MG Tablet PO (06:02)
[2021-09-18] MEDS: Senna/Docusate Sodium 1 Tablet PO ×2 (06:02→17:11)
[2021-09-18] MEDS: Tolterodine Tartrate 2 MG CAP.SA PO (06:02)
[2021-09-18] MEDS: Menthol/Lanolin/Calamine/Znox 113 GM Tube 1 APPLIC TOPICAL ×2 (06:02→17:12)
[2021-09-18] MEDS: Clopidogrel Bisulfate 75 MG Tablet PO (06:02)
[2021-09-18] MEDS: Furosemide 40 MG Tablet PO (06:02)
[2021-09-18] MEDS: Cholecalciferol (VIT D3) 25 MCG TABLET (1,000 UNITS) PO (06:02)
[2021-09-18 06:35] LABS: Bedside Glucose 144 mg/dL (70-110)
[2021-09-18] MEDS: Insulin Lispro 100 UNIT/ML INSULN.PEN 20 UNIT SC ×2 (07:37→11:48)
[2021-09-18] MEDS: metFORMIN (XR) 500 MG Tablet 1000 MG PO (07:39)
[2021-09-18] MEDS: Gabapentin 300 MG Capsule PO ×3 (07:39→17:11)
[2021-09-18] MEDS: Multivitamins,Ther W-Minerals Tablet 1 TABLET PO (07:39)
[2021-09-18] MEDS: Folic Acid 1 MG Tablet 0.5 MG PO (07:39)
[2021-09-18] MEDS: Potassium Chloride Oral Tablet 20 MEQ PO (07:40)
[2021-09-18] MEDS: Aspirin E.C. 81 MG Tablet PO (07:40)
[2021-09-18] MEDS: Carvedilol 6.25 MG Tablet PO ×2 (07:40→17:11)
[2021-09-18 10:45] LABS: Bedside Glucose 157 mg/dL (70-110)
[2021-09-18 13:51] VITALS: PULSE 63; RESP 16; O2SAT 97
[2021-09-18 14:34] VITALS: BP 105/50; PULSE 77; RESP 18; TEMP 35.7; O2SAT 97
[2021-09-18 16:45] LABS: Bedside Glucose 50 mg/dL (70-110)
[2021-09-18 16:50] LABS: Bedside Glucose 77 mg/dL (70-110)
[2021-09-18 18:25] LABS: Bedside Glucose 78 mg/dL (70-110)
--- NOTE | 2021-09-18 18:39 | NURSING ---
blood sugar 50 before supper, snacks given, came up to 92. held lantus and humalog this evening. will update dr cardoza
[2021-09-18 18:41] LABS: Bedside Glucose 92 mg/dL (70-110)
[2021-09-18] MEDS: Pravastatin 80 MG Tablet PO (20:23)
[2021-09-18] MEDS: Baclofen 10 MG Tablet PO (20:23)
[2021-09-18] MEDS: Tamsulosin HCl 0.4 MG Capsule PO (20:23)
[2021-09-18 21:35] LABS: Bedside Glucose 174 mg/dL (70-110)
[2021-09-19] MEDS: oxyCODONE 5 MG Tablet PO (03:21)
[2021-09-19] MEDS: Acetaminophen 500 MG Tablet 1000 MG PO ×3 (03:21→22:54)
[2021-09-19] MEDS: Losartan Potassium 25 MG Tablet PO (06:10)
[2021-09-19] MEDS: Menthol/Lanolin/Calamine/Znox 113 GM Tube 1 APPLIC TOPICAL ×2 (06:10→16:13)
[2021-09-19] MEDS: Polyethylene Glycol 3350 17 GM PACKET PO (06:10)
[2021-09-19] MEDS: Tolterodine Tartrate 2 MG CAP.SA PO (06:10)
[2021-09-19] MEDS: Furosemide 40 MG Tablet PO (06:10)
[2021-09-19] MEDS: Clopidogrel Bisulfate 75 MG Tablet PO (06:11)
[2021-09-19] MEDS: Senna/Docusate Sodium 1 Tablet PO ×2 (06:11→16:13)
[2021-09-19] MEDS: Cholecalciferol (VIT D3) 25 MCG TABLET (1,000 UNITS) PO (06:11)
[2021-09-19 06:31] LABS: Bedside Glucose 73 mg/dL (70-110)
[2021-09-19] MEDS: Gabapentin 300 MG Capsule PO ×3 (08:30→16:13)
[2021-09-19] MEDS: Folic Acid 1 MG Tablet 0.5 MG PO (08:31)
[2021-09-19] MEDS: metFORMIN (XR) 500 MG Tablet 1000 MG PO (08:32)
[2021-09-19] MEDS: Potassium Chloride Oral Tablet 20 MEQ PO (08:32)
[2021-09-19] MEDS: Multivitamins,Ther W-Minerals Tablet 1 TABLET PO (08:32)
[2021-09-19] MEDS: Aspirin E.C. 81 MG Tablet PO (08:33)
[2021-09-19] MEDS: Baclofen 10 MG Tablet PO (08:35)
[2021-09-19 08:39] VITALS: BP 92/46; PULSE 70
--- NOTE | 2021-09-19 08:39 | NURSING ---
coreg held at this time for BP 92/46
[2021-09-19 12:56] LABS: Bedside Glucose 181 mg/dL (70-110)
--- NOTE | 2021-09-19 12:57 | NURSING ---
Butran patch to Lt shoulder.
--- NOTE | 2021-09-19 13:21 | NURSING ---
Addendum entered by Deborah Diaz 09/19/21 14:48: This nurse reassessed pt. Pt states he is feeling better and is doing ok other than he is sleepy today. Original Note: Reports feeling so drowsy this AM. Blood sugar and BP taken earlier. Educated that Baclofen given earlier and side effect is drowsiness.
[2021-09-19 14:52] VITALS: BP 102/50; PULSE 74; RESP 16; TEMP 36.5; O2SAT 96
[2021-09-19 16:11] LABS: Bedside Glucose 201 mg/dL (70-110)
--- NOTE | 2021-09-19 16:14 | NURSING ---
This nurse went to administer medication, dried blood noted across bridge of nose and running down his cheek. When asked what happened pt stated his nose was itchy so he scratched it. Area cleansed with soap and water and bandaid applied. BP 116/56 at this time, HR 66, pt refusing coreg stating he will skip this dose and wait until morning, pt reports improvement of symptoms
[2021-09-19 16:17] VITALS: BP 116/56; PULSE 66
[2021-09-19 20:00] VITALS: O2SAT 98
[2021-09-19 21:25] LABS: Bedside Glucose 302 mg/dL (70-110)
[2021-09-19] MEDS: Pravastatin 80 MG Tablet PO (22:48)
[2021-09-19] MEDS: Tamsulosin HCl 0.4 MG Capsule PO (22:48)
[2021-09-20] MEDS: Senna/Docusate Sodium 1 Tablet PO ×2 (05:51→17:03)
[2021-09-20] MEDS: Clopidogrel Bisulfate 75 MG Tablet PO (05:51)
[2021-09-20] MEDS: Tolterodine Tartrate 2 MG CAP.SA PO (05:52)
[2021-09-20] MEDS: Losartan Potassium 25 MG Tablet PO (05:52)
[2021-09-20] MEDS: Furosemide 40 MG Tablet PO (05:52)
[2021-09-20] MEDS: Cholecalciferol (VIT D3) 25 MCG TABLET (1,000 UNITS) PO (05:53)
[2021-09-20] MEDS: Menthol/Lanolin/Calamine/Znox 113 GM Tube 1 APPLIC TOPICAL ×2 (05:53→17:03)
[2021-09-20 05:57] VITALS: BP 141/71; PULSE 70; RESP 16; TEMP 36.2; O2SAT 99
[2021-09-20 06:35] LABS: Bedside Glucose 188 mg/dL (70-110)
[2021-09-20] MEDS: Gabapentin 300 MG Capsule PO ×3 (08:34→17:03)
[2021-09-20] MEDS: Aspirin E.C. 81 MG Tablet PO (08:34)
[2021-09-20] MEDS: Potassium Chloride Oral Tablet 20 MEQ PO (08:34)
[2021-09-20] MEDS: Carvedilol 6.25 MG Tablet PO (08:34)
[2021-09-20] MEDS: Folic Acid 1 MG Tablet 0.5 MG PO (08:34)
[2021-09-20] MEDS: metFORMIN (XR) 500 MG Tablet 1000 MG PO (08:35)
[2021-09-20] MEDS: Multivitamins,Ther W-Minerals Tablet 1 TABLET PO (08:36)
[2021-09-20 09:20] LABS: Absolute Neutrophil Count 7.5 X10^3/uL (2.0-7.7); Basophil# 0.03 X10^3/uL; Basophil% 0.3 % (0-1); Eosinophil# 0.16 X10^3/uL; Eosinophils% 1.6 % (0-5); Hematocrit 45.1 % (40-54); Hemoglobin 14.8 g/dL (13.0-16.5); Lymphocyte % 12.2 % (19-41); Mean Corp Hgb Conc 32.8 g/dL (32-36); Mean Corpuscular Hgb 32.5 pg (27.0-32.0); Mean Corpuscular Volume 98.9 fL (80-94); Monocyte# 0.85 X10^3/uL; Monocyte% 8.6 % (0-10); NRBC Flagged by Analyzer 0 % (0-5); Neutrophil # 7.51 X10^3/uL (2.7-7.7); Neutrophil % 76.2 % (47-70); Platelet Count 200 K/mm3 (150-450); RBC Distribution Width CV 14.3 % (11.6-14.6); RBC Distribution Width SD 52.2 fl (35.1-43.9); Red Blood Count 4.56 M/mm3 (4.6-6.2); White Blood Count 9.9 K/mm3 (4.4-11.0)
[2021-09-20 09:48] LABS: Anion Gap 9 (5-15); BUN 41 mg/dL (7-18); BUN/Creat Ratio 24.3 RATIO (10-20); Calcium,Total 8.6 mg/dL (8.5-10.1); Chloride 101 mmol/L (98-107); Creatinine, Serum 1.69 mg/dL (0.70-1.30); EST Glomerular Filtration Rate 42 mL/min (>60); Est Glom Filt Rate - Afr Amer 51 mL/min (>60); Estimated Creatinine Clearance 34.85 ml/min; Glucose 284 mg/dL (74-106); Potassium 4.2 mmol/L (3.5-5.1); Sodium Level 135 mmol/L (136-145)
[2021-09-20 11:16] LABS: Bedside Glucose 269 mg/dL (70-110)
[2021-09-20] MEDS: Tuberculin,Purif.prot.deriv. 50 TU/ML Vial 0.1 ML ID (11:56)
[2021-09-20 13:39] VITALS: BP 85/49; PULSE 83; RESP 18; TEMP 36.3; O2SAT 97
[2021-09-20 16:11] LABS: Bedside Glucose 235 mg/dL (70-110)
[2021-09-20 21:45] LABS: Bedside Glucose 297 mg/dL (70-110)
[2021-09-20] MEDS: Pravastatin 80 MG Tablet PO (22:58)
[2021-09-20] MEDS: Tamsulosin HCl 0.4 MG Capsule PO (22:58)
[2021-09-20] MEDS: Acetaminophen 500 MG Tablet 1000 MG PO (23:02)
[2021-09-21] MEDS: Acetaminophen 500 MG Tablet 1000 MG PO (06:21)
[2021-09-21] MEDS: Cholecalciferol (VIT D3) 25 MCG TABLET (1,000 UNITS) PO (06:21)
[2021-09-21] MEDS: oxyCODONE 5 MG Tablet PO (06:21)
[2021-09-21] MEDS: Clopidogrel Bisulfate 75 MG Tablet PO (06:22)
[2021-09-21] MEDS: Losartan Potassium 25 MG Tablet PO (06:22)
[2021-09-21] MEDS: Furosemide 40 MG Tablet PO (06:22)
[2021-09-21] MEDS: Tolterodine Tartrate 2 MG CAP.SA PO (06:22)
[2021-09-21] MEDS: Menthol/Lanolin/Calamine/Znox 113 GM Tube 1 APPLIC TOPICAL ×2 (06:24→17:08)
[2021-09-21 06:36] LABS: Bedside Glucose 159 mg/dL (70-110)
[2021-09-21] MEDS: metFORMIN (XR) 500 MG Tablet 1000 MG PO (08:18)
[2021-09-21] MEDS: Folic Acid 1 MG Tablet 0.5 MG PO (08:20)
[2021-09-21] MEDS: Gabapentin 300 MG Capsule PO ×3 (08:20→17:05)
[2021-09-21] MEDS: Aspirin E.C. 81 MG Tablet PO (08:20)
[2021-09-21] MEDS: Potassium Chloride Oral Tablet 20 MEQ PO (08:20)
[2021-09-21] MEDS: Multivitamins,Ther W-Minerals Tablet 1 TABLET PO (08:21)
[2021-09-21 08:23] VITALS: BP 100/49; PULSE 69
[2021-09-21] MEDS: traMADol 50 MG Tablet PO (14:07)
[2021-09-21 14:35] LABS: Bedside Glucose 290 mg/dL (70-110)
[2021-09-21 16:00] VITALS: BP 125/68; PULSE 83; RESP 14; TEMP 36.4; O2SAT 97
[2021-09-21] MEDS: Carvedilol 6.25 MG Tablet PO (17:05)
[2021-09-21] MEDS: Senna/Docusate Sodium 1 Tablet PO (17:05)
--- NOTE | 2021-09-21 18:10 | NURSING ---
Dr Shen made aware that BP has been running low and Coreg has been held a few times in the past few days. He enters orders to decrease Coreg doseage.
[2021-09-21 18:25] LABS: Bedside Glucose 235 mg/dL (70-110)
[2021-09-21] MEDS: Tamsulosin HCl 0.4 MG Capsule PO (20:18)
[2021-09-21] MEDS: Pravastatin 80 MG Tablet PO (20:18)
[2021-09-21 21:11] LABS: Bedside Glucose 330 mg/dL (70-110)
[2021-09-22 06:35] LABS: Bedside Glucose 172 mg/dL (70-110)
[2021-09-22] MEDS: Senna/Docusate Sodium 1 Tablet PO ×2 (06:36→18:01)
[2021-09-22] MEDS: Menthol/Lanolin/Calamine/Znox 113 GM Tube 1 APPLIC TOPICAL ×2 (06:36→18:03)
[2021-09-22] MEDS: Cholecalciferol (VIT D3) 25 MCG TABLET (1,000 UNITS) PO (06:37)
[2021-09-22] MEDS: Clopidogrel Bisulfate 75 MG Tablet PO (06:37)
[2021-09-22] MEDS: Furosemide 20 MG Tablet PO (06:37)
[2021-09-22] MEDS: Tolterodine Tartrate 2 MG CAP.SA PO (06:37)
[2021-09-22] MEDS: Potassium Chloride Oral Tablet 20 MEQ PO (07:53)
[2021-09-22] MEDS: Multivitamins,Ther W-Minerals Tablet 1 TABLET PO (07:53)
[2021-09-22] MEDS: Aspirin E.C. 81 MG Tablet PO (07:54)
[2021-09-22] MEDS: metFORMIN (XR) 500 MG Tablet 1000 MG PO (07:54)
[2021-09-22] MEDS: Folic Acid 1 MG Tablet 0.5 MG PO (07:54)
[2021-09-22] MEDS: Insulin Lispro 100 UNIT/ML INSULN.PEN 7 UNIT SC ×3 (07:55→18:01)
[2021-09-22] MEDS: Gabapentin 300 MG Capsule PO ×3 (07:55→18:01)
[2021-09-22] MEDS: Carvedilol 3.125 MG TABLET PO ×2 (07:55→18:01)
[2021-09-22 07:59] VITALS: BP 125/64; PULSE 79
[2021-09-22 10:55] LABS: Bedside Glucose 236 mg/dL (70-110)
[2021-09-22 13:18] VITALS: BP 103/55; PULSE 69; RESP 18; TEMP 36.2; O2SAT 98
[2021-09-22 14:55] VITALS: PULSE 78; RESP 18; O2SAT 96
--- NOTE | 2021-09-22 15:07 | NURSING ---
Dr Shearer told pt he is cancelling back surgery for Oct 15, feels there is more going on, wants pt to see neurosurgeon. message left for Dr Shen, wanting to talk to him.
--- NOTE | 2021-09-22 17:30 | RAD_ITS ---
STUDY: X-RAY - ABDOMEN/PELVIS REASON FOR EXAM: Male, 76 years old. Abdominal distention TECHNIQUE: 3 supine views of the abdomen. COMPARISON: None. FINDINGS: Normal visualized lung bases. There is an unremarkable bowel gas pattern. There is no demonstrated free abdominal air. Large stool burden. Normal soft tissue structures. Normal visualized osseous structures. RAD/Abdomen Single View IMPRESSION: Large stool burden. Electronically Signed: Bal Conway MD at 18:40 EST Tel , Service support ,
[2021-09-22 18:10] LABS: Bedside Glucose 186 mg/dL (70-110)
[2021-09-22] MEDS: Pravastatin 80 MG Tablet PO (21:36)
[2021-09-22] MEDS: Tamsulosin HCl 0.4 MG Capsule PO (21:36)
--- NOTE | 2021-09-22 21:44 | NURSING ---
Pt refused Citrate of magnesium and states he had a large BM this hs.
[2021-09-23 00:26] LABS: Bedside Glucose 263 mg/dL (70-110)
[2021-09-23] MEDS: oxyCODONE 5 MG Tablet PO ×4 (01:45→19:47)
[2021-09-23] MEDS: Acetaminophen 500 MG Tablet 1000 MG PO ×2 (06:05→19:46)
[2021-09-23] MEDS: Furosemide 20 MG Tablet PO (06:11)
[2021-09-23] MEDS: Tolterodine Tartrate 2 MG CAP.SA PO (06:11)
[2021-09-23] MEDS: Menthol/Lanolin/Calamine/Znox 113 GM Tube 1 APPLIC TOPICAL ×2 (06:11→17:31)
[2021-09-23] MEDS: Cholecalciferol (VIT D3) 25 MCG TABLET (1,000 UNITS) PO (06:12)
[2021-09-23] MEDS: Clopidogrel Bisulfate 75 MG Tablet PO (06:12)
[2021-09-23] MEDS: Senna/Docusate Sodium 1 Tablet PO ×2 (06:12→17:30)
[2021-09-23 07:06] LABS: Bedside Glucose 151 mg/dL (70-110)
[2021-09-23] MEDS: Insulin Lispro 100 UNIT/ML INSULN.PEN 7 UNIT SC ×3 (07:13→17:30)
[2021-09-23 08:11] VITALS: BP 132/55; PULSE 77
[2021-09-23] MEDS: Folic Acid 1 MG Tablet 0.5 MG PO (08:12)
[2021-09-23] MEDS: Carvedilol 3.125 MG TABLET PO ×2 (08:12→17:30)
[2021-09-23] MEDS: metFORMIN (XR) 500 MG Tablet 1000 MG PO (08:12)
[2021-09-23] MEDS: Gabapentin 300 MG Capsule PO ×3 (08:12→17:29)
[2021-09-23] MEDS: Potassium Chloride Oral Tablet 20 MEQ PO (08:13)
[2021-09-23] MEDS: Multivitamins,Ther W-Minerals Tablet 1 TABLET PO (08:13)
[2021-09-23] MEDS: Aspirin E.C. 81 MG Tablet PO (08:13)
[2021-09-23] MEDS: BACITRACIN 15 GM Tube 1 APPLIC TOPICAL ×2 (10:28→17:30)
[2021-09-23] MEDS: BUPRENORPHINE 1 EACH PATCH.TDWK TD ×2 (10:30)
[2021-09-23 11:06] LABS: Bedside Glucose 196 mg/dL (70-110)
--- NOTE | 2021-09-23 12:36 | MDS.RN ---
Information for the mds was obtained from review of the clinical record, interview of resident, staff, and direct observation of resident's care.
[2021-09-23 14:50] VITALS: BP 112/62; PULSE 81; RESP 16; TEMP 36.2; O2SAT 99
[2021-09-23 17:40] LABS: Bedside Glucose 230 mg/dL (70-110)
[2021-09-23 19:51] VITALS: PULSE 73; RESP 16; O2SAT 95
[2021-09-23] MEDS: Pravastatin 80 MG Tablet PO (20:02)
[2021-09-23] MEDS: Tamsulosin HCl 0.4 MG Capsule PO (20:03)
[2021-09-23 21:26] LABS: Bedside Glucose 258 mg/dL (70-110)
[2021-09-24] MEDS: Baclofen 10 MG Tablet PO (01:27)
[2021-09-24] MEDS: oxyCODONE 5 MG Tablet PO ×2 (01:28→10:19)
[2021-09-24] MEDS: Acetaminophen 500 MG Tablet 1000 MG PO ×3 (03:22→21:02)
[2021-09-24] MEDS: traMADol 50 MG Tablet PO ×2 (03:22→14:05)
[2021-09-24 06:25] LABS: Bedside Glucose 102 mg/dL (70-110)
[2021-09-24] MEDS: BACITRACIN 15 GM Tube 1 APPLIC TOPICAL (06:43)
[2021-09-24] MEDS: Menthol/Lanolin/Calamine/Znox 113 GM Tube 1 APPLIC TOPICAL ×2 (06:44→17:40)
[2021-09-24] MEDS: Tolterodine Tartrate 2 MG CAP.SA PO (06:44)
[2021-09-24] MEDS: Furosemide 20 MG Tablet PO (06:45)
[2021-09-24] MEDS: Cholecalciferol (VIT D3) 25 MCG TABLET (1,000 UNITS) PO (06:46)
[2021-09-24] MEDS: Senna/Docusate Sodium 1 Tablet PO ×2 (06:46→17:41)
[2021-09-24] MEDS: Insulin Lispro 100 UNIT/ML INSULN.PEN 7 UNIT SC (06:46)
[2021-09-24] MEDS: Clopidogrel Bisulfate 75 MG Tablet PO (06:46)
[2021-09-24] MEDS: Carvedilol 3.125 MG TABLET PO ×2 (08:12→17:40)
[2021-09-24] MEDS: Gabapentin 300 MG Capsule PO ×3 (08:12→17:40)
[2021-09-24] MEDS: Aspirin E.C. 81 MG Tablet PO (08:13)
[2021-09-24] MEDS: Folic Acid 1 MG Tablet 0.5 MG PO (08:13)
[2021-09-24] MEDS: metFORMIN (XR) 500 MG Tablet 1000 MG PO (08:14)
[2021-09-24] MEDS: Multivitamins,Ther W-Minerals Tablet 1 TABLET PO (08:14)
[2021-09-24] MEDS: Potassium Chloride Oral Tablet 20 MEQ PO (08:14)
[2021-09-24 08:16] VITALS: BP 109/53; PULSE 76
[2021-09-24 10:55] LABS: Bedside Glucose 233 mg/dL (70-110)
[2021-09-24 15:39] VITALS: BP 115/65; PULSE 61; RESP 17; TEMP 35.8; O2SAT 98
[2021-09-24 16:11] LABS: Bedside Glucose 221 mg/dL (70-110)
[2021-09-24] MEDS: Tamsulosin HCl 0.4 MG Capsule PO (20:59)
[2021-09-24] MEDS: Pravastatin 80 MG Tablet PO (21:00)
[2021-09-24 21:15] LABS: Bedside Glucose 245 mg/dL (70-110)
[2021-09-24 22:59] VITALS: PULSE 78; RESP 18; O2SAT 98
[2021-09-25] MEDS: traMADol 50 MG Tablet PO (00:30)
[2021-09-25] MEDS: Baclofen 10 MG Tablet PO (00:35)
[2021-09-25] MEDS: oxyCODONE 5 MG Tablet PO ×3 (04:03→21:03)
[2021-09-25] MEDS: Senna/Docusate Sodium 1 Tablet PO ×2 (05:56→17:27)
[2021-09-25] MEDS: Clopidogrel Bisulfate 75 MG Tablet PO (05:56)
[2021-09-25] MEDS: Tolterodine Tartrate 2 MG CAP.SA PO (05:56)
[2021-09-25] MEDS: Furosemide 20 MG Tablet PO (05:56)
[2021-09-25] MEDS: Cholecalciferol (VIT D3) 25 MCG TABLET (1,000 UNITS) PO (05:56)
[2021-09-25] MEDS: BACITRACIN 15 GM Tube 1 APPLIC TOPICAL (05:57)
[2021-09-25] MEDS: Menthol/Lanolin/Calamine/Znox 113 GM Tube 1 APPLIC TOPICAL ×2 (06:01→21:06)
[2021-09-25 06:25] LABS: Bedside Glucose 153 mg/dL (70-110)
[2021-09-25] MEDS: Potassium Chloride Oral Tablet 20 MEQ PO (08:59)
[2021-09-25] MEDS: Gabapentin 300 MG Capsule PO ×3 (08:59→17:27)
[2021-09-25] MEDS: Carvedilol 3.125 MG TABLET PO ×2 (08:59→17:27)
[2021-09-25] MEDS: Acetaminophen 500 MG Tablet 1000 MG PO ×2 (08:59→21:04)
[2021-09-25] MEDS: Aspirin E.C. 81 MG Tablet PO (08:59)
[2021-09-25] MEDS: metFORMIN (XR) 500 MG Tablet 1000 MG PO (08:59)
[2021-09-25] MEDS: Multivitamins,Ther W-Minerals Tablet 1 TABLET PO (09:00)
[2021-09-25] MEDS: Folic Acid 1 MG Tablet 0.5 MG PO (09:00)
[2021-09-25 11:06] LABS: Bedside Glucose 207 mg/dL (70-110)
[2021-09-25 16:00] VITALS: BP 135/69; PULSE 77; RESP 17; TEMP 35.9; O2SAT 98
[2021-09-25 16:10] LABS: Bedside Glucose 240 mg/dL (70-110)
[2021-09-25] MEDS: APIXABAN 5 MG TABLET 10 MG PO (17:27)
[2021-09-25] MEDS: Pravastatin 80 MG Tablet PO (21:06)
[2021-09-25] MEDS: Tamsulosin HCl 0.4 MG Capsule PO (21:06)
[2021-09-25 22:11] LABS: Bedside Glucose 217 mg/dL (70-110)
[2021-09-26 06:20] LABS: Bedside Glucose 151 mg/dL (70-110)
[2021-09-26] MEDS: Acetaminophen 500 MG Tablet 1000 MG PO (06:50)
[2021-09-26] MEDS: oxyCODONE 5 MG Tablet PO ×2 (06:51→11:34)
[2021-09-26] MEDS: Senna/Docusate Sodium 1 Tablet PO ×2 (06:52→17:42)
[2021-09-26] MEDS: APIXABAN 5 MG TABLET 10 MG PO ×2 (06:52→17:42)
[2021-09-26] MEDS: Tolterodine Tartrate 2 MG CAP.SA PO (06:53)
[2021-09-26] MEDS: Cholecalciferol (VIT D3) 25 MCG TABLET (1,000 UNITS) PO (06:53)
[2021-09-26] MEDS: Menthol/Lanolin/Calamine/Znox 113 GM Tube 1 APPLIC TOPICAL ×2 (06:53→20:07)
[2021-09-26] MEDS: Clopidogrel Bisulfate 75 MG Tablet PO (06:53)
[2021-09-26] MEDS: Furosemide 20 MG Tablet PO (06:54)
[2021-09-26] MEDS: Carvedilol 3.125 MG TABLET PO ×2 (10:20→17:42)
[2021-09-26] MEDS: Folic Acid 1 MG Tablet 0.5 MG PO (10:22)
[2021-09-26] MEDS: Gabapentin 300 MG Capsule PO ×3 (10:22→17:42)
[2021-09-26] MEDS: Aspirin E.C. 81 MG Tablet PO (10:23)
[2021-09-26] MEDS: metFORMIN (XR) 500 MG Tablet 1000 MG PO (10:23)
[2021-09-26] MEDS: Multivitamins,Ther W-Minerals Tablet 1 TABLET PO (10:24)
[2021-09-26] MEDS: Potassium Chloride Oral Tablet 20 MEQ PO (10:24)
[2021-09-26 11:10] LABS: Bedside Glucose 306 mg/dL (70-110)
[2021-09-26] MEDS: Insulin Lispro 100 UNIT/ML INSULN.PEN 7 UNIT SC ×2 (12:07→17:41)
[2021-09-26 13:22] VITALS: BP 121/61; PULSE 98; RESP 16; TEMP 36.2; O2SAT 99
[2021-09-26 16:35] LABS: Bedside Glucose 234 mg/dL (70-110)
[2021-09-26] MEDS: Tamsulosin HCl 0.4 MG Capsule PO (21:14)
[2021-09-26] MEDS: Pravastatin 80 MG Tablet PO (21:14)
[2021-09-26 21:15] LABS: Bedside Glucose 326 mg/dL (70-110)
[2021-09-26 22:41] VITALS: PULSE 79; RESP 12; O2SAT 97
[2021-09-27] MEDS: Menthol/Lanolin/Calamine/Znox 113 GM Tube 1 APPLIC TOPICAL (04:31)
[2021-09-27] MEDS: Furosemide 20 MG Tablet PO (04:34)
[2021-09-27] MEDS: Cholecalciferol (VIT D3) 25 MCG TABLET (1,000 UNITS) PO (04:34)
[2021-09-27] MEDS: APIXABAN 5 MG TABLET 10 MG PO ×2 (04:34→18:12)
[2021-09-27] MEDS: Tolterodine Tartrate 2 MG CAP.SA PO (04:34)
[2021-09-27] MEDS: Senna/Docusate Sodium 1 Tablet PO ×2 (04:35→18:12)
[2021-09-27 06:31] LABS: Bedside Glucose 147 mg/dL (70-110)
[2021-09-27 06:47] LABS: Absolute Lymphocyte Count 0.98 X10^3/uL (0.83-4.51); Absolute Neutrophil Count 3.7 X10^3/uL (2.0-7.7); Basophil# 0.04 X10^3/uL; Basophil% 0.7 % (0-1); Eosinophil# 0.27 X10^3/uL; Eosinophils% 4.8 % (0-5); Hematocrit 38.7 % (40-54); Hemoglobin 12.9 g/dL (13.0-16.5); Lymphocyte # 0.98 X10^3/ul (0.83-4.51); Lymphocyte % 17.5 % (19-41); Mean Corp Hgb Conc 33.3 g/dL (32-36); Mean Corpuscular Hgb 32.3 pg (27.0-32.0); Monocyte# 0.55 X10^3/uL; Monocyte% 9.8 % (0-10); NRBC Flagged by Analyzer 0 % (0-5); Neutrophil # 3.73 X10^3/uL (2.7-7.7); Neutrophil % 66.5 % (47-70); Platelet Count 188 K/mm3 (150-450); RBC Distribution Width CV 13.8 % (11.6-14.6); RBC Distribution Width SD 49.2 fl (35.1-43.9); Red Blood Count 3.99 M/mm3 (4.6-6.2); White Blood Count 5.6 K/mm3 (4.4-11.0)
[2021-09-27 07:11] LABS: Anion Gap 9 (5-15); BUN 24 mg/dL (7-18); BUN/Creat Ratio 23.1 RATIO (10-20); Calcium,Total 8.7 mg/dL (8.5-10.1); Chloride 104 mmol/L (98-107); Creatinine, Serum 1.04 mg/dL (0.70-1.30); EST Glomerular Filtration Rate 73 mL/min (>60); Est Glom Filt Rate - Afr Amer 89 mL/min (>60); Estimated Creatinine Clearance 56.63 ml/min; Glucose 164 mg/dL (74-106); Potassium 4.2 mmol/L (3.5-5.1); Sodium Level 138 mmol/L (136-145)
[2021-09-27] MEDS: Folic Acid 1 MG Tablet 0.5 MG PO (08:46)
[2021-09-27] MEDS: Gabapentin 300 MG Capsule PO ×3 (08:47→18:12)
[2021-09-27] MEDS: Potassium Chloride Oral Tablet 20 MEQ PO (08:48)
[2021-09-27] MEDS: Carvedilol 3.125 MG TABLET PO ×2 (08:48→18:12)
[2021-09-27] MEDS: metFORMIN (XR) 500 MG Tablet 1000 MG PO (08:48)
[2021-09-27] MEDS: Multivitamins,Ther W-Minerals Tablet 1 TABLET PO (08:49)
[2021-09-27] MEDS: Insulin Lispro 100 UNIT/ML INSULN.PEN 7 UNIT SC ×3 (08:50→18:15)
--- NOTE | 2021-09-27 09:17 | NURSING ---
pt with increased BLEs edema, dr cardoza updated, pt states he was taking lasix 40 mg BID. new order to increase lasix to home regimen and bmp in AM
[2021-09-27 11:05] LABS: Bedside Glucose 253 mg/dL (70-110)
[2021-09-27 11:30] VITALS: PULSE 82; RESP 14; O2SAT 97
[2021-09-27] MEDS: Furosemide 40 MG Tablet PO (12:34)
[2021-09-27 15:38] VITALS: BP 126/70; PULSE 75; RESP 18; TEMP 37; O2SAT 95
[2021-09-27 16:51] LABS: Bedside Glucose 207 mg/dL (70-110)
[2021-09-27] MEDS: Acetaminophen 500 MG Tablet 1000 MG PO (18:22)
[2021-09-27] MEDS: Baclofen 10 MG Tablet PO (18:22)
[2021-09-27 21:15] LABS: Bedside Glucose 269 mg/dL (70-110)
[2021-09-27] MEDS: Pravastatin 80 MG Tablet PO (21:43)
[2021-09-27] MEDS: Tamsulosin HCl 0.4 MG Capsule PO (21:43)
[2021-09-28] MEDS: Acetaminophen 500 MG Tablet 1000 MG PO (01:44)
[2021-09-28] MEDS: oxyCODONE 5 MG Tablet PO ×2 (01:45→21:14)
[2021-09-28] MEDS: APIXABAN 5 MG TABLET 10 MG PO ×2 (05:40→17:51)
[2021-09-28] MEDS: Tolterodine Tartrate 2 MG CAP.SA PO (05:40)
[2021-09-28] MEDS: Menthol/Lanolin/Calamine/Znox 113 GM Tube 1 APPLIC TOPICAL ×2 (05:40→17:49)
[2021-09-28] MEDS: Cholecalciferol (VIT D3) 25 MCG TABLET (1,000 UNITS) PO (05:40)
[2021-09-28] MEDS: Senna/Docusate Sodium 1 Tablet PO ×2 (05:40→17:51)
[2021-09-28] MEDS: Furosemide 40 MG Tablet PO ×2 (05:41→11:13)
[2021-09-28 05:43] VITALS: BP 127/69; PULSE 62
[2021-09-28 06:25] LABS: Bedside Glucose 185 mg/dL (70-110)
[2021-09-28 06:38] LABS: Anion Gap 6 (5-15); BUN 27 mg/dL (7-18); BUN/Creat Ratio 23.5 RATIO (10-20); Calcium,Total 8.8 mg/dL (8.5-10.1); Chloride 103 mmol/L (98-107); Creatinine, Serum 1.15 mg/dL (0.70-1.30); EST Glomerular Filtration Rate 65 mL/min (>60); Est Glom Filt Rate - Afr Amer 79 mL/min (>60); Estimated Creatinine Clearance 51.22 ml/min; Glucose 175 mg/dL (74-106); Potassium 3.9 mmol/L (3.5-5.1); Sodium Level 138 mmol/L (136-145)
[2021-09-28] MEDS: Potassium Chloride Oral Tablet 20 MEQ PO (08:06)
[2021-09-28] MEDS: Gabapentin 300 MG Capsule PO ×3 (08:07→17:51)
[2021-09-28] MEDS: Carvedilol 3.125 MG TABLET PO ×2 (08:07→17:51)
[2021-09-28] MEDS: Folic Acid 1 MG Tablet 0.5 MG PO (08:07)
[2021-09-28] MEDS: Multivitamins,Ther W-Minerals Tablet 1 TABLET PO (08:07)
[2021-09-28] MEDS: metFORMIN (XR) 500 MG Tablet 1000 MG PO (08:07)
[2021-09-28] MEDS: Insulin Lispro 100 UNIT/ML INSULN.PEN 7 UNIT SC ×3 (08:09→17:47)
[2021-09-28] MEDS: Baclofen 10 MG Tablet PO ×2 (10:00→21:14)
--- NOTE | 2021-09-28 10:36 | NURSING ---
Therapy reported to this nurse that pt has red kpad imprint left on back after kpad was removed. This nurse assessed pt and noted his upper back to be red but blanchable, pt denies pain/discomfort. Kpad left off at this time
[2021-09-28 11:13] VITALS: BP 117/65; PULSE 88
[2021-09-28 12:11] LABS: Bedside Glucose 327 mg/dL (70-110)
[2021-09-28 15:12] VITALS: BP 116/64; PULSE 83; RESP 16; TEMP 36.6; O2SAT 99
[2021-09-28 16:11] LABS: Bedside Glucose 289 mg/dL (70-110)
[2021-09-28] MEDS: Pravastatin 80 MG Tablet PO (21:14)
[2021-09-28] MEDS: Tamsulosin HCl 0.4 MG Capsule PO (21:14)
[2021-09-28 21:45] LABS: Bedside Glucose 262 mg/dL (70-110)
[2021-09-29] MEDS: Furosemide 40 MG Tablet PO ×2 (05:21→11:36)
[2021-09-29] MEDS: Tolterodine Tartrate 2 MG CAP.SA PO (05:21)
[2021-09-29] MEDS: APIXABAN 5 MG TABLET 10 MG PO ×2 (05:21→17:41)
[2021-09-29] MEDS: Senna/Docusate Sodium 1 Tablet PO ×2 (05:21→17:41)
[2021-09-29] MEDS: Cholecalciferol (VIT D3) 25 MCG TABLET (1,000 UNITS) PO (05:21)
[2021-09-29] MEDS: Menthol/Lanolin/Calamine/Znox 113 GM Tube 1 APPLIC TOPICAL ×2 (05:23→20:43)
[2021-09-29 05:24] VITALS: BP 127/69; PULSE 74
[2021-09-29 06:26] LABS: Bedside Glucose 188 mg/dL (70-110)
[2021-09-29 06:42] VITALS: O2SAT 94
[2021-09-29] MEDS: Folic Acid 1 MG Tablet 0.5 MG PO (08:04)
[2021-09-29] MEDS: Carvedilol 3.125 MG TABLET PO ×2 (08:04→17:40)
[2021-09-29] MEDS: Gabapentin 300 MG Capsule PO ×3 (08:04→17:40)
[2021-09-29] MEDS: Potassium Chloride Oral Tablet 20 MEQ PO (08:05)
[2021-09-29] MEDS: Multivitamins,Ther W-Minerals Tablet 1 TABLET PO (08:05)
[2021-09-29] MEDS: metFORMIN (XR) 500 MG Tablet 1000 MG PO (08:05)
[2021-09-29] MEDS: Insulin Lispro 100 UNIT/ML INSULN.PEN 7 UNIT SC ×3 (08:06→17:40)
[2021-09-29] MEDS: Acetaminophen 500 MG Tablet 1000 MG PO (08:09)
[2021-09-29 08:14] VITALS: BP 113/56; PULSE 87
[2021-09-29 10:35] VITALS: PULSE 84; RESP 18; O2SAT 96
[2021-09-29 11:35] LABS: Bedside Glucose 308 mg/dL (70-110)
[2021-09-29] MEDS: oxyCODONE 5 MG Tablet PO (11:35)
--- NOTE | 2021-09-29 13:53 | CASEMGMT ---
Social Work IDT concerned about pt regressing r/t pain, surgery has been cancelled and IDT unsure about safety returning home. Spoke with to inquire about DC plans. is concerned about pt's return home as well - she cannot assist with anything physical for him. She explained pt was weak and falling frequently falling and if that has not improved, he is unsafe to DC home. Pt's neurology appt is Oct 29. Explained pt cannot remain until that appt if no changes have been made in his condition. expressed understanding. was adamant about not making any decisions for pt and she does not want him knowing she discussed this with SW. SW agreed to not mention that to pt. SW to speak with pt on his options for DC. Will continue to follow. Kira Hay ,CLINICAL GENETICIST PET AMBASSADOR
[2021-09-29 14:44] VITALS: BP 119/68; PULSE 84; RESP 17; TEMP 36; O2SAT 96
[2021-09-29 16:26] LABS: Bedside Glucose 195 mg/dL (70-110)
[2021-09-29] MEDS: Pravastatin 80 MG Tablet PO (20:44)
[2021-09-29] MEDS: Tamsulosin HCl 0.4 MG Capsule PO (20:44)
[2021-09-29 21:16] LABS: Bedside Glucose 289 mg/dL (70-110)
[2021-09-30] MEDS: oxyCODONE 5 MG Tablet PO (00:24)
[2021-09-30] MEDS: traMADol 50 MG Tablet PO (04:15)
[2021-09-30] MEDS: Baclofen 10 MG Tablet PO (04:15)
[2021-09-30] MEDS: Furosemide 40 MG Tablet PO ×2 (04:17→11:34)
[2021-09-30] MEDS: Tolterodine Tartrate 2 MG CAP.SA PO (04:17)
[2021-09-30] MEDS: Menthol/Lanolin/Calamine/Znox 113 GM Tube 1 APPLIC TOPICAL ×2 (04:17→17:12)
[2021-09-30] MEDS: Cholecalciferol (VIT D3) 25 MCG TABLET (1,000 UNITS) PO (04:17)
[2021-09-30] MEDS: Senna/Docusate Sodium 1 Tablet PO ×2 (04:17→17:13)
[2021-09-30] MEDS: APIXABAN 5 MG TABLET 10 MG PO ×2 (04:18→17:12)
[2021-09-30 06:20] LABS: Bedside Glucose 158 mg/dL (70-110)
[2021-09-30] MEDS: Potassium Chloride Oral Tablet 20 MEQ PO (08:02)
[2021-09-30] MEDS: Multivitamins,Ther W-Minerals Tablet 1 TABLET PO (08:02)
[2021-09-30] MEDS: Folic Acid 1 MG Tablet 0.5 MG PO (08:03)
[2021-09-30] MEDS: Gabapentin 300 MG Capsule PO ×3 (08:03→17:12)
[2021-09-30] MEDS: Carvedilol 3.125 MG TABLET PO ×2 (08:03→17:12)
[2021-09-30] MEDS: metFORMIN (XR) 500 MG Tablet 1000 MG PO (08:03)
[2021-09-30] MEDS: Insulin Lispro 100 UNIT/ML INSULN.PEN 7 UNIT SC ×4 (08:04→22:22)
[2021-09-30] MEDS: BUPRENORPHINE 1 EACH PATCH.TDWK TD (10:19)
[2021-09-30 10:46] LABS: Bedside Glucose 242 mg/dL (70-110)
[2021-09-30 12:49] VITALS: BP 108/59; PULSE 75; RESP 16; TEMP 36.4; O2SAT 96
--- NOTE | 2021-09-30 13:01 | MDS.RN ---
Resident and spouse Coty notified of 2 staff members testing positive for Covid.
--- NOTE | 2021-09-30 15:44 | CASEMGMT ---
Addendum entered by Kira Hay 09/30/21 15:59: Spoke whom is agreeable to DC plan. Original Note: Social Work Spoke with pt about DC plans. Inquired if pt feels safe to return home as cannot physically assist him. Pt explained he has AE to assist and requesting a 3-in-1 commode. can do meals and laundry and driving. Pt requesting to DC home 10/02. IDT agreeable. Pt requesting [facility]. Referral made for PT/OT/SN/ARGUETA. Referred to [facility] for BSC. Left message with . Plan: DC home with 10/02, [facility] PT/OT/SN/ARGUETA, BSC Kira Hay, JOSE DELEONW
[2021-09-30 15:51] LABS: Bedside Glucose 235 mg/dL (70-110)
[2021-09-30] MEDS: BACITRACIN 15 GM Tube 1 APPLIC TOPICAL (17:15)
--- NOTE | 2021-09-30 20:54 | PCM.DC.SUM ---
Providers Date of Admission: 09/12/21 Primary Care Physician: Dr. Paulo Nguyen MD Reason For Visit: DEBLITY Diagnosis Discharge Diagnosis (1) Debility: Status: Acute Code(s): R53.81 - Other malaise (2) Weakness: Status: Acute Code(s): R53.1 - Weakness (3) Spinal stenosis of lumbar region with radiculopathy: Status: Acute Code(s): M48.061 - Spinal stenosis, lumbar region without neurogenic claudication; M54.16 - Radiculopathy, lumbar region (4) Vitamin D deficiency: Status: Acute Code(s): E55.9 - Vitamin D deficiency, unspecified (5) Diabetes mellitus: Status: Acute Code(s): E11.9 - Type 2 diabetes mellitus without complications (6) Benign prostate hyperplasia: Status: Acute Code(s): N40.0 - Benign prostatic hyperplasia without lower urinary tract symptoms (7) Overactive bladder: Status: Acute Code(s): N32.81 - Overactive bladder (8) Coronary artery disease: Status: Acute Code(s): I25.10 - Atherosclerotic heart disease of tribe coronary artery without angina pectoris (9) Chronic diastolic congestive heart failure: Status: Chronic Code(s): I50.32 - Chronic diastolic (congestive) heart failure (10) Hypokalemia: Status: Acute Code(s): E87.6 - Hypokalemia (11) Hyperlipidemia: Status: Acute Code(s): E78.5 - Hyperlipidemia, unspecified (12) Allergic rhinitis: Status: Acute Code(s): J30.9 - Allergic rhinitis, unspecified (13) Diabetic neuropathy: Status: Acute Code(s): E11.40 - Type 2 diabetes mellitus with diabetic neuropathy, unspecified Medications at Discharge Home Medications cholecalciferol (vitamin D3) 1,000 unit PO DAILY 10/19/19 folic acid 0.4 mg PO DAILY 10/19/19 metformin 1,000 mg PO DAILY 10/19/19 tamsulosin 0.4 mg capsule 0.4 mg PO QHS 07/02/20 oxybutynin chloride 10 mg PO DAILY 12/01/20 potassium chloride 10 mEq tablet,extended release 20 meq PO DAILY tab 04/08/21 dulaglutide 1.5 mg/0.5 mL subcutaneous pen injector 0.75 mg SUBCUT TU ml 05/15/21 pravastatin 80 mg tablet 80 mg PO DAILY 05/15/21 buprenorphine 10 mcg/hour weekly transdermal patch 15 mcg TRANSDERMAL TU 08/06/21 insulin glargine 100 unit/mL (3 mL) subcutaneous pen 24 unit SUBCUT BID ml 08/06/21 acetaminophen 1,000 mg PO Q6H PRN PRN #0 tab 09/30/21 apixaban [Eliquis] 5 mg PO BID 30 Days #60 tab 09/30/21 baclofen 10 mg PO TID PRN PRN 30 Days #90 tab 09/30/21 carvedilol 3.125 mg PO BIDCM 30 Days #60 tab 09/30/21 furosemide 40 mg PO 0600,1200 30 Days #60 tab 09/30/21 gabapentin 300 mg PO TIDCM 30 Days #90 cap 09/30/21 oxycodone 5 mg PO Q4H PRN PRN 7 Days #42 tab 09/30/21 polyethylene glycol 3350 17 g PO DAILY 30 Days #30 ea 09/30/21 sennosides-docusate sodium [Stool Softener-Stimulant Laxat] 1 tab PO BID 30 Days #60 tab 09/30/21 tramadol 50 mg PO Q6H PRN PRN 7 Days #28 tab 09/30/21 Hospital Course Operations None Procedures None Summary of Care Provided Minutes Spent on Discharge: 35 Hospital Course: 76 year old male with below past medical history hospitalized for debility secondary to lumbar spinal stenosis with radiculopathy, admitted to TCU, here for rehablitation, strengthening, prior to discharge home with . 09/25/2021 Doppler ultrasound right lower extremity positive right lower extremity DVT, Eliquis 5mg bid thru 12/24/2021. Discharge home with 10/02/2021, [facility] PT/OT/SN/ARGUETA, Bedside commode. Physical Exam Const alert and oriented x3 General Appearance: cooperative HEENT normocephalic Eyes PERRL and EOMs intact bilaterally Neck supple, no JVD and no carotid bruits Resp normal respiratory effort, normal air movement and clear to auscultation bilaterally Cardio regular rate and regular rhythm GI normal to inspection, nondistended, normoactive bowel sounds, non-tender and non-distended Extremity normal capillary refill General Extremity: Negative for edema Skin no rashes or lesions noted General Skin Exam: no breakdown Psych affect normal Appearance: appropriate Weight / BMI Weight Weight: 118.478 kg Body Mass Index (BMI) 38.0 ABG / Lab / Microbiology Data Result Diagrams: 09/27/21 04:31 09/28/21 05:25 Laboratory: Laboratory Results - last 24 hr 09/29/21 21:08: POC Glucose 289 H 09/30/21 06:16: POC Glucose 158 H 09/30/21 10:40: POC Glucose 242 H 09/30/21 15:49: POC Glucose 235 H D/C Instructions Discharge Diet: No restrictions Discharge Activity: Return to Normal Activity, May Shower and Use Walker Weight Bearing Status: Weight bearing as tolerated Call your doctor if you observe: Fever of 101 or Higher, Inability to urinate, Inability to have a bowel movement, Shortness of breath, Dizziness, Fainting spells, Swelling in the ankles, Chest pain and Uncontrolled pain Additional Instructions: Discharge home with 10/02/2021, [facility] PT/OT/SN/ARGUETA, Bedside commode. Please Follow Up With: Paulo Nguyen MD When: 1 week. Meaningful Use Info Meaningful Use Diagnoses (Choose all that apply): None applicable Discharge Plan Admission Admit Date/Time: 09/12/21 18:40 Primary Reason for Your Visit: Debility. Attending Provider: Nj Shen Chi Primary Care Provider: Paulo Nguyen Instructions Additional Instructions / Restrictions: Discharge home with 10/02/2021, [facility] PT/OT/SN/RAGUETA, Bedside commode. Discharge Orders/Prescriptions Prescriptions: New acetaminophen 500 mg Tablet 1,000 mg PO Q6H PRN PRN (Reason: Pain Score 1-3) Qty: 0 RF: 0 furosemide 40 mg Tablet 40 mg PO 0600,1200 30 Days Qty: 60 RF: 0 carvedilol 3.125 mg Tablet 3.125 mg PO BIDCM 30 Days Qty: 60 RF: 0 baclofen 10 mg Tablet 10 mg PO TID PRN PRN (Reason: Muscle Spasm) 30 Days Qty: 90 RF: 0 oxycodone 5 mg Tablet 5 mg PO Q4H PRN PRN (Reason: Pain Score 6-10) 7 Days Qty: 42 RF: 0 Eliquis 5 mg Tablet 5 mg PO BID 30 Days Qty: 60 RF: 0 polyethylene glycol 3350 17 gram Powder In Packet 17 g PO DAILY 30 Days Qty: 30 RF: 0 sennosides-docusate sodium [Stool Softener-Stimulant Laxat] 8.6-50 mg Tablet 1 tab PO BID 30 Days Qty: 60 RF: 0 tramadol 50 mg Tablet 50 mg PO Q6H PRN PRN (Reason: Pain Score 4-5) 7 Days Qty: 28 RF: 0 Continued tamsulosin 0.4 mg capsule 0.4 mg PO QHS RF: 0 potassium chloride 10 mEq tablet extended release 20 meq PO DAILY RF: 0 Trulicity 1.5 mg/0.5 mL pen injector 0.75 mg subcut TU RF: 0 Basaglar KwikPen U-100 Insulin 100 unit/mL (3 mL) insulin pen 24 unit subcut BID RF: 0 buprenorphine [Butrans] 10 mcg/hour patch weekly 15 mcg transdermal TU RF: 0 metformin 1,000 MG tablet extended release 24hr 1,000 mg PO DAILY RF: 0 cholecalciferol (vitamin D3) 1,000 UNIT tablet 1,000 unit PO DAILY RF: 0 folic acid 0.4 MG tablet 0.4 mg PO DAILY RF: 0 pravastatin 80 mg tablet 80 mg PO DAILY RF: 0 oxybutynin chloride 10 MG tablet extended release 24hr 10 mg PO DAILY RF: 0 gabapentin 300 mg capsule 300 mg PO TIDCM 30 Days Qty: 90 RF: 0 Discontinued zinc gluconate 50 mg tablet 100 mg PO DAILY RF: 0 losartan 25 mg tablet 25 mg PO DAILY RF: 0 loratadine 10 mg tablet 10 mg PO DAILY PRN (Reason: allergies) RF: 0 carvedilol 6.25 mg tablet 6.25 mg PO BID RF: 0 clopidogrel 75 mg tablet 75 mg PO DAILY RF: 0 multivitamin with minerals 1 EACH tablet 1 ea PO DAILY RF: 0 aspirin 81 mg tablet,delayed release (DR/EC) 81 mg PO DAILY RF: 0 docusate sodium 100 mg capsule 100 mg PO TID RF: 0 acetaminophen 500 MG tablet 500 - 1,000 mg PO Q6H PRN PRN (Reason: Pain Or Fever) RF: 0 albuterol sulfate 1 PUFF inhaler 1 - 2 puff INHALATION Q6H PRN PRN (Reason: Dyspnea/Wheezing/Sob) RF: 0 coenzyme Q10 [Co Q-10] 10 mg capsule 10 mg PO DAILY RF: 0 furosemide 40 mg tablet 40 mg PO DAILY Qty: 0 RF: 0 hydrocodone-acetaminophen 5-325 mg tablet 2 tab PO Q12H 3 Days Qty: 12 RF: 0 prednisone 20 mg tablet 20 mg PO BID RF: 0 Referrals / Follow Up: Paulo Nguyen MD [Primary Care Provider] - Within 1 Week () Flakito Shearer DO [STAFF PHYSICIAN] - 10/28/21 11:00 am (Flakito Shearer DO on 10/28/21 @11:00) Prasanth Durant MD [STAFF PHYSICIAN] - 10/29/21 9:00 am Disposition Disposition (needs filled in before D/C Order can be placed): Home Health Service
[2021-09-30] MEDS: Pravastatin 80 MG Tablet PO (21:18)
[2021-09-30] MEDS: Tamsulosin HCl 0.4 MG Capsule PO (21:18)
[2021-09-30] MEDS: Acetaminophen 500 MG Tablet 1000 MG PO (21:21)
[2021-09-30 21:26] LABS: Bedside Glucose 302 mg/dL (70-110)
--- NOTE | 2021-09-30 21:58 | NURSING ---
notified via telephone of elevated blood glucose 302. New order received for Humalog 7 units x1 dose
[2021-10-01 06:05] LABS: Bedside Glucose 137 mg/dL (70-110)
[2021-10-01] MEDS: APIXABAN 5 MG TABLET 10 MG PO ×2 (06:17→17:10)
[2021-10-01] MEDS: Acetaminophen 500 MG Tablet 1000 MG PO (06:17)
[2021-10-01] MEDS: Furosemide 40 MG Tablet PO ×2 (06:17→11:43)
[2021-10-01] MEDS: Senna/Docusate Sodium 1 Tablet PO ×2 (06:17→17:10)
[2021-10-01] MEDS: Tolterodine Tartrate 2 MG CAP.SA PO (06:17)
[2021-10-01] MEDS: Cholecalciferol (VIT D3) 25 MCG TABLET (1,000 UNITS) PO (06:17)
[2021-10-01] MEDS: Menthol/Lanolin/Calamine/Znox 113 GM Tube 1 APPLIC TOPICAL ×2 (06:18→17:07)
[2021-10-01] MEDS: Insulin Lispro 100 UNIT/ML INSULN.PEN 7 UNIT SC ×3 (08:12→17:08)
[2021-10-01] MEDS: Folic Acid 1 MG Tablet 0.5 MG PO (08:13)
[2021-10-01] MEDS: Gabapentin 300 MG Capsule PO ×3 (08:13→17:09)
[2021-10-01] MEDS: metFORMIN (XR) 500 MG Tablet 1000 MG PO (08:14)
[2021-10-01] MEDS: Potassium Chloride Oral Tablet 20 MEQ PO (08:14)
[2021-10-01] MEDS: Multivitamins,Ther W-Minerals Tablet 1 TABLET PO (08:14)
[2021-10-01 08:18] VITALS: BP 119/67; PULSE 82
[2021-10-01] MEDS: Carvedilol 3.125 MG TABLET PO ×2 (08:18→17:09)
--- NOTE | 2021-10-01 10:17 | NURSING ---
nicole, pharmacist from [facility] called asking if oxyir can be changed to capsules since no tabs in stock and make sure Dr is aware that pt recently filled norco. updated dr cardoza, new order to change oxyir to capsules and pt to stop taking norco while taking PRN ultram and Oxyir at home.
--- NOTE | 2021-10-01 10:58 | CASEMGMT ---
Social Work BIMS and PHQ-9 completed for MDS assessment. Kira Hay, GARMENT ALTERATION EXAMINER HEADWAITER/HEADWAITRESS
[2021-10-01 11:05] LABS: Bedside Glucose 244 mg/dL (70-110)
--- NOTE | 2021-10-01 14:01 | NURSING ---
Resident informed of staff members testing positive for COVID
[2021-10-01 15:32] VITALS: BP 136/72; PULSE 75; RESP 16; TEMP 36; O2SAT 98
[2021-10-01 16:20] LABS: Bedside Glucose 218 mg/dL (70-110)
[2021-10-01] MEDS: Tamsulosin HCl 0.4 MG Capsule PO (19:57)
[2021-10-01] MEDS: Pravastatin 80 MG Tablet PO (19:57)
[2021-10-01 22:40] LABS: Bedside Glucose 240 mg/dL (70-110)
[2021-10-02] MEDS: Menthol/Lanolin/Calamine/Znox 113 GM Tube 1 APPLIC TOPICAL (05:37)
[2021-10-02] MEDS: Furosemide 40 MG Tablet PO (05:38)
[2021-10-02] MEDS: Senna/Docusate Sodium 1 Tablet PO (05:38)
[2021-10-02] MEDS: APIXABAN 5 MG TABLET 10 MG PO (05:38)
[2021-10-02] MEDS: Tolterodine Tartrate 2 MG CAP.SA PO (05:38)
[2021-10-02] MEDS: Cholecalciferol (VIT D3) 25 MCG TABLET (1,000 UNITS) PO (05:38)
[2021-10-02 07:16] LABS: Bedside Glucose 186 mg/dL (70-110)
[2021-10-02] MEDS: Gabapentin 300 MG Capsule PO (08:13)
[2021-10-02] MEDS: Multivitamins,Ther W-Minerals Tablet 1 TABLET PO (08:20)
[2021-10-02] MEDS: Folic Acid 1 MG Tablet 0.5 MG PO (08:20)
[2021-10-02] MEDS: metFORMIN (XR) 500 MG Tablet 1000 MG PO (08:20)
[2021-10-02] MEDS: Potassium Chloride Oral Tablet 20 MEQ PO (08:22)
[2021-10-02] MEDS: Insulin Lispro 100 UNIT/ML INSULN.PEN 7 UNIT SC (08:23)
[2021-10-02 10:19] VITALS: BP 129/67; PULSE 100; RESP 18; TEMP 36.7; O2SAT 92
== END 2021-10-02 10:20 | disposition home health service (06) | DRG 552 ==
PROVIDERS: Admitting Provider Family Medicine Geriatric Medicine; PCP Family Medicine; Visit Provider Family Medicine Geriatric Medicine
DX: M48.061 Spinal stenosis, lumbar region without neurogenic claudication (principal); I50.32 Chronic diastolic (congestive) heart failure; I82.401 Acute embolism and thrombosis of unspecified deep veins of right lower extremity; I25.10 Atherosclerotic heart disease of native coronary artery without angina pectoris; E78.5 Hyperlipidemia, unspecified; E11.40 Type 2 diabetes mellitus with diabetic neuropathy, unspecified; I11.0 Hypertensive heart disease with heart failure; N40.0 Benign prostatic hyperplasia without lower urinary tract symptoms; E66.9 Obesity, unspecified; E87.6 Hypokalemia; N32.81 Overactive bladder; E55.9 Vitamin D deficiency, unspecified; M54.16 Radiculopathy, lumbar region; Z79.82 Long term (current) use of aspirin; I25.2 Old myocardial infarction; Z79.899 Other long term (current) drug therapy; Z79.02 Long term (current) use of antithrombotics/antiplatelets; Z79.4 Long term (current) use of insulin; Z79.52 Long term (current) use of systemic steroids; Z68.38 Body mass index [BMI] 38.0-38.9, adult; Z68.39 Body mass index [BMI] 39.0-39.9, adult
CPT/HCPCS: 36415; 74018; 80048; 82962; 85025; 87635; 93971; 97110; 97116; 97140; 97150; 97162; 97165; 97530; 97535; 97802; U0005; U0003

== ENCOUNTER → 2021-09-25 10:13 | Outpatient (CLI) | payer MEDICARE, OTHER, SELFPAY ==
[2021-02-27 07:06] VITALS: BMI 40.4
--- NOTE | 2021-09-25 10:15 | VDLE_ITS ---
Reason For Study: Swelling RIGHT LEFT GSV is normal. CFV is compressible, spontaneous, phasic, CFV is compressible, spontaneous, phasic, competent, and demonstrates normal competent and demonstrates normal augmentation. augmentation. FV is compressible, spontaneous, phasic, competent and demonstrates normal augmentation. POP V is compressible, spontaneous, phasic, competent and demonstrates normal augmentation. T/P Trunk is compressible. RT PerV is compressible. Acute deep vein thrombosis is noted in the right posterior tibial vein. Procedure This is a venous duplex using B-mode, color flow and spectral Doppler. Exam performed portable in patient room. A preliminary report was called and/or faxed to TCU. VL/Venous Duplex US, Unilateral Interpretation Summary Acute deep venous thrombosis right posterior tibial vein. Patent and compressible right great saphenous vein Normal flow patterns left common femoral vein Ordering Physician: Nj Shen Referring Physician: Franklin Nguyen Performed By: Susy Gutiérrez RVT
== END ==
PROVIDERS: PCP Family Medicine; Referring Provider Family Medicine Geriatric Medicine; Visit Provider Family Medicine Geriatric Medicine
DX: R22.41 Localized swelling, mass and lump, right lower limb (principal)
CPT/HCPCS: 93971

== ENCOUNTER 2021-10-04 15:53 | Emergency (ER) | payer MEDICARE, OTHER, SELFPAY ==
[2021-02-27 07:06] VITALS: BMI 40.4
[2021-10-04 15:54] VITALS: BP 155/82; PULSE 88; RESP 18; TEMP 36.7; O2SAT 96; BMI 40.3
--- NOTE | 2021-10-04 16:09 | EX.ED.DYSGE1 ---
HPI History of Present Illness Chief Complaint: Weakness Narrative Narrative: 76-year-old male past medical history of diabetes, diabetic neuropathy, was recently admitted to [facility] for back pain and lumbar radiculopathy down both legs presents with injury to his left foot that he sustained just prior to arrival. He states he was in the bathroom, and was trying to get up, and his legs gave out on him. He sustained injuries to the plantar aspect of his left toes. There are lacerations on the second and third toes at the base. He does take blood thinners. He states his last tetanus immunization was this year. He is complaining of back pain that has had for weeks. He states he has pills at home but does not know what he takes for analgesia. He is supposed to see a neurologist versus neurosurgeon in the future for his chronic back pain. He presents because of the injury to his left foot. [facility] Medical History Atherosclerotic heart disease of ramona coronary artery without angina pectoris DM type 2 (diabetes mellitus, type 2) Essential hypertension Hyperlipidemia NSTEMI (non-ST elevated myocardial infarction) Obesity Pericardial effusion Presence of stent in coronary artery (10/20/19) Spinal stenosis Home Medications cholecalciferol (vitamin D3) 1,000 unit PO DAILY 10/19/19 [History Last Taken 09/11/21 09:00] folic acid 0.4 mg PO DAILY 10/19/19 [History Last Taken 09/08/21] metformin 1,000 mg PO DAILY 10/19/19 [History Last Taken 09/11/21 09:00] tamsulosin 0.4 mg capsule 0.4 mg PO QHS 07/02/20 [History Last Taken 09/10/21 21:00] oxybutynin chloride 10 mg PO DAILY 12/01/20 [History Last Taken 09/11/21 09:00] potassium chloride 10 mEq tablet,extended release 20 meq PO DAILY tab 04/08/21 [History Last Taken 09/11/21 09:00] dulaglutide 1.5 mg/0.5 mL subcutaneous pen injector 0.75 mg SUBCUT TU ml 05/15/21 [History Last Taken 09/08/21 08:00] pravastatin 80 mg tablet 80 mg PO DAILY 08/06/21 [History Last Taken 09/10/21 21:00] buprenorphine 10 mcg/hour weekly transdermal patch 15 mcg TRANSDERMAL TU 08/06/21 [History Last Taken 09/08/21] insulin glargine 100 unit/mL (3 mL) subcutaneous pen 24 unit SUBCUT BID ml 08/06/21 [History Last Taken 09/08/21] acetaminophen 1,000 mg PO Q6H PRN PRN #0 tab 09/30/21 [Rx Last Taken Unknown] apixaban [Eliquis] 5 mg PO BID 30 Days #60 tab 09/30/21 [Rx Last Taken Unknown] baclofen 10 mg PO TID PRN PRN 30 Days #90 tab 09/30/21 [Rx Last Taken Unknown] carvedilol 3.125 mg PO BIDCM 30 Days #60 tab 09/30/21 [Rx Last Taken Unknown] furosemide 40 mg PO 0600,1200 30 Days #60 tab 09/30/21 [Rx Last Taken Unknown] gabapentin 300 mg PO TIDCM 30 Days #90 cap 09/30/21 [Rx Last Taken Unknown] oxycodone 5 mg PO Q4H PRN PRN 7 Days #42 tab 09/30/21 [Rx Last Taken Unknown] polyethylene glycol 3350 17 g PO DAILY 30 Days #30 ea 09/30/21 [Rx Last Taken Unknown] sennosides-docusate sodium [Stool Softener-Stimulant Laxat] 1 tab PO BID 30 Days #60 tab 09/30/21 [Rx Last Taken Unknown] tramadol 50 mg PO Q6H PRN PRN 7 Days #28 tab 09/30/21 [Rx Last Taken Unknown] cephalexin 500 mg PO Q12 #14 cap 10/04/21 [Rx Last Taken Unknown] Allergy/AdvReac Type Severity Reaction Status Date / Time lisinopril AdvReac cough Verified 09/11/21 19:47 Surgical History H/O knee surgery History of back surgery History of left heart catheterization (10/20/19) Presence of coronary angioplasty implant and graft (~10/20/19) Social History household members: spouse Smoking Status: Never smoker alcohol intake: current alcohol intake frequency: a few times a month Alcohol type: beer substance use type: does not use caffeine: No ROS ROS ED ROS Narrative Constitutional: No fever, no chills. HEENT: No sore throat. No neck pain. No loss of vision. No rhinorrhea. Cardiovascular: No chest pain. No palpitations. No pedal edema. Respiratory: No cough, no shortness of breath. Abdominal: No abdominal pain. No nausea. No vomiting. Genitourinary: No dysuria. No hematuria. Musculoskeletal: No myalgias. No arthralgias. Chronic back pain. Denies pain in foot secondary to diabetic neuropathy. Lacerations to base of toes on left foot. Neurologic: No headaches. No dizziness. No lightheadedness. Bilateral weakness of legs, chronic. Skin: No rash. No change in color. Psychiatric: No depression. No anxiety. EXAM Physical Exam Narrative Exam Narrative: Afebrile. Vital signs noted. HEENT: Normocephalic. Atraumatic. PERRL, EOMI. Neck soft and supple. No point tenderness or step off. Cardiovascular: Regular rate and rhythm. No murmurs, rubs, or gallops appreciated. Respiratory: No tachypnea. Lungs clear to auscultation bilaterally. Gastrointestinal: Abdomen soft, nontender, with normoactive bowel sounds. No rebound or guarding. Neurological: Awake. Alert. Nonfocal, nonlateralizing. Skin: No rash. Normal color. No pallor. Positive laceration on plantar aspect at base of second and third toes on left foot. No active bleeding. Positive tendon exposure without evidence of tendon laceration through full range of motion of second toe. Musculoskeletal: No pedal edema. Full range of motion extremities. Const Vital Signs: 10/04/21 15:54 10/04/21 16:51 Temperature 98.1 F Temperature Source Oral Pulse Rate 88 Respiratory Rate 18 Respiratory Pattern Normal Blood Pressure 155/82 H Blood Pressure Mean 106 Pulse Ox 96 Oxygen Delivery Method Room Air MDM MDM MDM Narrative Medical decision making narrative: I reviewed the patient's medication list. He will be given an oxycodone 5 mg tablet here in the emergency department for his back pain. He has already received a tetanus immunization this year according to him. I discussed laceration repair with him. However, primarily I will obtain x-rays of the left foot to look for fracture of the toes/foot. His initial x-ray shows dislocation of the PIP joint of the second toe. He was counseled regarding laceration repair of the second and third digits. He was informed of the risk of infection and scarring and acknowledges understanding. He states he sees a flat drier. The patient underwent laceration repair. Lidocaine 1% was used as a local anesthetic. The 1.5 cm laceration on his second toe was closed using 5 simple interrupted sutures using three-point 0 Ethilon for tensile strength. After laceration repair, closed reduction was performed. As the patient has diabetic neuropathy, he tolerated the procedure well and did not feel pain during closed reduction of his toe dislocation. The other 1.5 cm laceration at the base of the third toe was closed using 4 simple interrupted sutures using four-point 0 Ethilon. Patient tolerated the procedure well. As he is diabetic and has mild lymphedema, I will put him on prophylactic antibiotics in the form of Keflex 500 mg twice a day for the next week. He will follow up with his flat drier in the next 2 days for wound check. He was told that the sutures should stay in place for 7 to 10 days. Return instructions to the emergency department were reviewed. Regarding his back pain, he feels improved after he was given his home dose of oxycodone. He states he is scheduled to follow-up for his chronic back pain. Disposition is discharged home in stable condition. Radiography Diagnostic Testing: Clinical Impression(s) from Imaging Studies Foot X-Ray 10/04/21 16:20 IMPRESSION: . Subluxation of the PIP joint of the second toe without associated fracture. Electronically Signed: Randall Waite MD at 17:30 EST , Service support , Toe X-Ray 10/04/21 18:50 IMPRESSION: Status post reduction of PIP joint of second toe subluxation Electronically Signed: Randall Waite MD at 20:09 EST , Service support , Discharge Plan Triage Chief Complaint: Weakness ED Provider: Ian Núñez Dx/Rx/DC Orders Clinical Impression: Fall, Dislocation of toe of left foot, Laceration of toe of left foot, Spinal stenosis Instructions: ED Fall with Uncertain Cause, ED Laceration, Foot: All Closures, ED Toe Dislocation Prescriptions: New cephalexin 500 mg capsule 500 mg PO Q12 Qty: 14 RF: 0 No Action tamsulosin 0.4 mg capsule 0.4 mg PO QHS RF: 0 potassium chloride 10 mEq tablet extended release 20 meq PO DAILY RF: 0 Trulicity 1.5 mg/0.5 mL pen injector 0.75 mg subcut TU RF: 0 Basaglar KwikPen U-100 Insulin 100 unit/mL (3 mL) insulin pen 24 unit subcut BID RF: 0 buprenorphine [Butrans] 10 mcg/hour patch weekly 15 mcg transdermal TU RF: 0 metformin 1,000 MG tablet extended release 24hr 1,000 mg PO DAILY RF: 0 cholecalciferol (vitamin D3) 1,000 UNIT tablet 1,000 unit PO DAILY RF: 0 folic acid 0.4 MG tablet 0.4 mg PO DAILY RF: 0 pravastatin 80 mg tablet 80 mg PO DAILY RF: 0 oxybutynin chloride 10 MG tablet extended release 24hr 10 mg PO DAILY RF: 0 acetaminophen 500 mg Tablet 1,000 mg PO Q6H PRN PRN (Reason: Pain Score 1-3) Qty: 0 RF: 0 furosemide 40 mg Tablet 40 mg PO 0600,1200 30 Days Qty: 60 RF: 0 carvedilol 3.125 mg Tablet 3.125 mg PO BIDCM 30 Days Qty: 60 RF: 0 baclofen 10 mg Tablet 10 mg PO TID PRN PRN (Reason: Muscle Spasm) 30 Days Qty: 90 RF: 0 oxycodone 5 mg Tablet 5 mg PO Q4H PRN PRN (Reason: Pain Score 6-10) 7 Days Qty: 42 RF: 0 Eliquis 5 mg Tablet 5 mg PO BID 30 Days Qty: 60 RF: 0 polyethylene glycol 3350 17 gram Powder In Packet 17 g PO DAILY 30 Days Qty: 30 RF: 0 sennosides-docusate sodium [Stool Softener-Stimulant Laxat] 8.6-50 mg Tablet 1 tab PO BID 30 Days Qty: 60 RF: 0 tramadol 50 mg Tablet 50 mg PO Q6H PRN PRN (Reason: Pain Score 4-5) 7 Days Qty: 28 RF: 0 gabapentin 300 mg capsule 300 mg PO TIDCM 30 Days Qty: 90 RF: 0 Primary Care Provider: Paulo Nguyen Referrals: Paulo Nguyen MD [Primary Care Provider] - 10/06/21 Activity Restrictions/Additional Instructions: Follow-up with your flat drier in 2 days for wound check. Have sutures removed in 7 to 10 days. Prophylactic antibiotics as directed. Disposition Disposition: Home, Self Care
--- NOTE | 2021-10-04 16:20 | RAD_ITS ---
STUDY: X-RAY - LEFT FOOT CLINICAL: Male, 76 years old. trauma TECHNIQUE: 3 view(s) of the foot. COMPARISON: None. FINDINGS: Normal talus, and tarsal bones. Moderate sized plantar calcaneal spur Normal visualized subtalar, talonavicular, calcaneocuboid, tarsal and tarsometatarsal articulations. Normal metatarsi. Normal metatarsophalangeal joint of the great toe. Normal tibial and fibular sesamoid bones. Normal interphalangeal joint of the great toe. Normal phalanges of the great toe. There is apparent subluxation of the PIP joint of the second digit Normal second through fifth metatarsophalangeal joints. phalanges of the lesser toes. The soft tissue structures are unremarkable. RAD/Foot min 3 Views IMPRESSION: . Subluxation of the PIP joint of the second toe without associated fracture. Electronically Signed: Randall Waite MD at 17:30 EST , Service support ,
[2021-10-04] MEDS: oxyCODONE 5 MG Tablet PO (16:47)
--- NOTE | 2021-10-04 18:50 | RAD_ITS ---
STUDY: X-RAY LEFT FOOT, SECOND TOE REASON FOR EXAM: Male, 76 years old. post reduction TECHNIQUE: 3 view(s) of the toe were obtained. COMPARISON: 10/04/2021 FINDINGS: Previously noted subluxed PIP joint of the second toe has been reduced with taoism of joint to normal anatomic configuration. No associated fracture observed. RAD/Toe(s) Min 2 Views IMPRESSION: Status post reduction of PIP joint of second toe subluxation Electronically Signed: Randall Waite MD at 20:09 EST , Service support ,
[2021-10-04] MEDS: Amox/Clavulanate 875 MG Tablet PO (19:14)
[2021-10-04 21:24] VITALS: RESP 18
== END 2021-10-04 21:27 | disposition home or self-care (01) ==
PROVIDERS: Emergency Provider Emergency Medicine; PCP Family Medicine
DX: S93.135A Subluxation of interphalangeal joint of left lesser toe(s), initial encounter (principal); S91.115A Laceration without foreign body of left lesser toe(s) without damage to nail, initial encounter; E11.40 Type 2 diabetes mellitus with diabetic neuropathy, unspecified; I25.10 Atherosclerotic heart disease of native coronary artery without angina pectoris; I10 Essential (primary) hypertension; E78.5 Hyperlipidemia, unspecified; M48.00 Spinal stenosis, site unspecified; M54.10 Radiculopathy, site unspecified; E66.9 Obesity, unspecified; I25.2 Old myocardial infarction; Z79.01 Long term (current) use of anticoagulants; Z79.4 Long term (current) use of insulin; Z95.5 Presence of coronary angioplasty implant and graft; Z79.899 Other long term (current) drug therapy
CPT/HCPCS: 12002; 28665; 73630; 73660; 99284

== ENCOUNTER 2021-11-10 13:09 | Outpatient (CLI) | payer MEDICARE, OTHER, SELFPAY ==
[2021-02-27 07:06] VITALS: BMI 40.4
--- NOTE | 2021-11-10 13:12 | MRI_ITS ---
EXAM: MR CERVICAL SPINE WITHOUT INTRAVENOUS CONTRAST CLINICAL INDICATION: neck pain, gait disorder TECHNIQUE: Multiplanar and multisequence MR images of the cervical spine without intravenous contrast were performed. This report was created using [employer] technology. COMPARISON: None. FINDINGS: VERTEBRAE: Normal cervical lordosis. Normal vertebral bodies and posterior osseous elements. SPINAL CORD: Unremarkable in signal and morphology. SOFT TISSUES: Unremarkable. No prevertebral soft tissue swelling. LYMPH NODES: Unremarkable. There is no cervical adenopathy. DISCS/SPINAL CANAL/NEURAL FORAMINA: C2-C3: C2-3: Normal endplates. Disc desiccation. Normal central canal and intervertebral neuroforamina. C3-C4: C3-4: Loss of intervertebral disc height. There is endplate spondylosis of the vertebral body. There is bilateral facet arthropathy. Posterior disc herniation. Left neural foraminal stenosis. Compression of exiting left nerve roots. C4-C5: C4-5: Loss of intervertebral disc height. There is endplate spondylosis of the vertebral body. There is bilateral facet arthropathy. Posterior disc bulge. Bilateral neural foraminal stenosis. Compression of exiting respective nerve roots. C5-C6: C5-6: Loss of intervertebral disc height. There is endplate spondylosis of the vertebral body. There is bilateral facet arthropathy. Posterior disc bulge. Bilateral neural foraminal stenosis. Compression of exiting respective nerve roots. C6-C7: C6-7: Loss of intervertebral disc height with osseous fusion. There is endplate spondylosis of the vertebral body. There is bilateral facet arthropathy. Posterior disc bulge. Bilateral neural foraminal stenosis. Compression of exiting respective nerve roots. C7-T1: Loss of intervertebral disc height. There is endplate spondylosis of the vertebral body. There is bilateral facet arthropathy. Normal spinal canal and neuroforamina. MRI/Spine Cervical (Routine) IMPRESSION: 1. C3-4: Loss of intervertebral disc height. There is endplate spondylosis of the vertebral body. There is bilateral facet arthropathy. Posterior disc herniation. Left neural foraminal stenosis. Compression of exiting left nerve roots. 2. C4-5: Loss of intervertebral disc height. There is endplate spondylosis of the vertebral body. There is bilateral facet arthropathy. Posterior disc bulge. Bilateral neural foraminal stenosis. Compression of exiting respective nerve roots. 3. C5-6: Loss of intervertebral disc height. There is endplate spondylosis of the vertebral body. There is bilateral facet arthropathy. Posterior disc bulge. Bilateral neural foraminal stenosis. Compression of exiting respective nerve roots. 4. C6-7: Loss of intervertebral disc height with osseous fusion. There is endplate spondylosis of the vertebral body. There is bilateral facet arthropathy. Posterior disc bulge. Bilateral neural foraminal stenosis. Compression of exiting respective nerve roots. Electronically Signed: Fabián Waggoner MD at 15:06 EST Reading Location ID and State: [facility] / [place] , Service support ,
== END 2021-11-10 23:59 | disposition short-term general hospital (02) ==
LOC: MRI 13:12
PROVIDERS: PCP Family Medicine; Visit Provider Psychiatry & Neurology Neurology
DX: R26.9 Unspecified abnormalities of gait and mobility (principal); M54.2 Cervicalgia; G89.29 Other chronic pain; G62.9 Polyneuropathy, unspecified
CPT/HCPCS: 72141

== ENCOUNTER 2021-12-07 06:52 | Outpatient (CLI) | payer MEDICARE, OTHER, SELFPAY ==
[2021-02-27 07:06] VITALS: BMI 40.4
--- NOTE | 2021-12-07 08:14 | NEURO ---
NCS and/or EMG Patient Report Ordering Doctor: Prasanth Durant DATE OF SERVICE: 12/07/21 Indication: Bilateral lower extremity weakness and sensory disturbances worsening over the last year and leading to gait instability. Chronic low back pain and spondylosis status post decompression and fusion. He now experienced radicular pain shooting down both lower extremities (left greater than right) when standing. Medical comorbidities include DVT on Eliquis, diabetes and lower extremity edema. Evaluate for polyneuropathy and/or lumbar radiculopathy. Findings: Nerve conduction studies were performed in the bilateral lower extremities and left upper extremity. The right peroneal motor study recording the extensor digitorum brevis showed an absent response. The right tibial motor study recording the abductor hallucis brevis showed an absent response. The right sural sensory response was absent. The right superficial peroneal sensory response was absent. The left peroneal motor study recording the extensor digitorum brevis showed an absent response. The left tibial motor study recording the abductor hallucis brevis showed an absent response. The left sural sensory response was absent. The left superficial peroneal sensory response was absent. The radial response was obtained to aide in determining if there was a generalized disorder of the sensory nerves. The right radial sensory response recording over the extensor snuff box showed a reduced amplitude, normal latency and slightly reduced conduction velocity. Needle EMG of the lower extremity muscles was omitted due to a number of contraindications. The patient's concurrent diabetes and significant peripheral edema would place him at high risk for developing cellulitis in the lower extremities. His current treatment with Eliquis precludes needle examination of the paraspinals and other deep muscles. The prior low back surgery would be another potential confounder if denervation was encountered in the back. Impression: This is a markedly abnormal, but indeterminant study. 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 Due to the limitations of this study (lack of needle examination- see above), a superimposed radiculopathy cannot be excluded. Franklin Turner D.O. Multi Select Codes Neurology Neurology Interp Codes: 59724-83 [facility] test 9-10 studies (interp)
== END 2021-12-07 23:59 | disposition home or self-care (01) ==
PROVIDERS: PCP Family Medicine; Referring Provider Psychiatry & Neurology Neurology; Visit Provider Psychiatry & Neurology Neurology
DX: M54.16 Radiculopathy, lumbar region (principal); G62.9 Polyneuropathy, unspecified; M47.16 Other spondylosis with myelopathy, lumbar region
CPT/HCPCS: 95911

== ENCOUNTER 2021-12-15 16:23 | Outpatient (CLI) | payer MEDICARE, OTHER, SELFPAY ==
[2021-02-27 07:06] VITALS: BMI 40.4
[2021-12-15 17:59] LABS: Hemoglobin 14.3 g/dL (13.0-16.5); Mean Corp Hgb Conc 32.5 g/dL (32-36); Mean Corpuscular Hgb 31.4 pg (27.0-32.0); Mean Corpuscular Volume 96.5 fL (80-94); Mean Platelet Vol. 10.8 fl (6.2-12.0); Platelet Count 169 K/mm3 (150-450); RBC Distribution Width CV 14.1 % (11.6-14.6); RBC Distribution Width SD 49.6 fl (35.1-43.9); Red Blood Count 4.56 M/mm3 (4.6-6.2); White Blood Count 6.7 K/mm3 (4.4-11.0)
[2021-12-15 18:44] LABS: Vitamin B12 356 pg/mL (211-911)
[2021-12-15 18:53] LABS: AST(SGOT) 18 U/L (15-37); Alanine Aminotransfer ALT/SGPT 25 U/L (16-61); Albumin, Serum 3.6 g/dL (3.2-5.0); Alkaline Phosphatase 59 U/L (45-117); Anion Gap 8 (5-15); BUN 24 mg/dL (7-18); BUN/Creat Ratio 13.3 RATIO (10-20); Chloride 101 mmol/L (98-107); EST Glomerular Filtration Rate 39 mL/min (>60); Est Glom Filt Rate - Afr Amer 47 mL/min (>60); Globulin 3.6 g/dL (2.2-4.2); Glucose 220 mg/dL (74-106); Potassium 4.1 mmol/L (3.5-5.1); Protein, Total 7.2 g/dL (6.4-8.2); Sodium Level 139 mmol/L (136-145); Thyroid Stim Hormone (TSH) 1.44 uIU/mL (0.358-3.74)
[2021-12-18 00:07] LABS: Free Kappa Light Chains 43.7 mg/L (3.3-19.4); Free Lambda Light Chains 28.9 mg/L (5.7-26.3)
== END 2021-12-15 23:59 | disposition home or self-care (01) ==
LOC: MTLAB 16:25
PROVIDERS: PCP Family Medicine; Referring Provider Psychiatry & Neurology Neurology; Visit Provider Psychiatry & Neurology Neurology
DX: R26.9 Unspecified abnormalities of gait and mobility (principal); E11.69 Type 2 diabetes mellitus with other specified complication; E11.42 Type 2 diabetes mellitus with diabetic polyneuropathy; Z79.4 Long term (current) use of insulin
CPT/HCPCS: 36415; 80053; 82607; 82746; 83883; 84443; 85027

== ENCOUNTER 2022-01-06 18:15 | Emergency (ER) | payer MEDICARE, OTHER, SELFPAY ==
[2021-02-27 07:06] VITALS: BMI 40.4
[2022-01-06 18:17] VITALS: BP 163/92; PULSE 77; RESP 18; TEMP 36.1; O2SAT 98; BMI 39.7
[2022-01-06] MEDS: predniSONE 20 MG Tablet 60 MG PO (19:28)
--- NOTE | 2022-01-06 20:27 | EX.ED.DYSGE1 ---
HPI History of Present Illness Chief Complaint: Rash Narrative Narrative: Patient presenting with scalp rash on the right side of his scalp which has been there since the other day when he had an MRI. He states he was placed in a harness to keep his head still and when he came out he started to have the rash. He describes it as itchy. He does not describe it as painful. He does state that there is some redness on the scalp and his eye feels itchy and there is some swelling in his right eyebrow. Denies fever, chills. Denies headache. Denies nausea or vomiting. PFSH [facility] Medical History Atherosclerotic heart disease of [place] coronary artery without angina pectoris DM type 2 (diabetes mellitus, type 2) Essential hypertension Hyperlipidemia NSTEMI (non-ST elevated myocardial infarction) Obesity Pericardial effusion Presence of stent in coronary artery (10/20/19) Spinal stenosis Home Medications folic acid 0.4 mg PO DAILY 10/19/19 [History Last Taken 09/08/21] metformin 1,000 mg PO DAILY 10/19/19 [History Last Taken 09/11/21 09:00] tamsulosin 0.4 mg capsule 0.4 mg PO QHS 07/02/20 [History Last Taken 09/10/21 21:00] dulaglutide 1.5 mg/0.5 mL subcutaneous pen injector 0.75 mg SUBCUT TU ml 05/15/21 [History Last Taken 09/08/21 08:00] pravastatin 80 mg tablet 80 mg PO DAILY 05/15/21 [History Last Taken 09/10/21 21:00] acetaminophen 1,000 mg PO Q6H PRN PRN #0 tab 09/30/21 [Rx Last Taken Unknown] carvedilol 3.125 mg PO BIDCM 30 Days #60 tab 09/30/21 [Rx Last Taken Unknown] SUPER BETA PROSTATE 1 tab PO DAILY 10/29/21 [History Last Taken Unknown] docusate sodium 100 mg capsule 100 mg PO BID 10/29/21 [History Last Taken Unknown] furosemide 20 mg tablet 20 mg PO BID 10/29/21 [History Last Taken Unknown] insulin glargine 100 unit/mL (3 mL) subcutaneous pen 22 unit SUBCUT BID ml 10/29/21 [History Last Taken Unknown] krill oil 500 mg capsule 500 mg PO DAILY cap 10/29/21 [History Last Taken Unknown] mirabegron 25 mg tablet,extended release 24 hr 25 mg PO DAILY 10/29/21 [History Last Taken Unknown] potassium chloride 20 mEq tablet,extended release 20 meq PO DAILY 10/29/21 [History Last Taken Unknown] baclofen 10 mg tablet 10 mg PO TID PRN #90 tab 11/02/21 [Rx Last Taken Unknown] gabapentin 600 mg tablet 600 mg PO TID #90 tab 11/02/21 [Rx Last Taken Unknown] hydrocodone-acetaminophen 5-325mg 5mg-325mg 1 tab PO TID tab 12/15/21 [History Last Taken Unknown] aspirin 81 mg tablet,delayed release 81 mg PO DAILY 01/05/22 [History Last Taken Unknown] clopidogrel 75 mg tablet 75 mg PO DAILY 01/05/22 [History Last Taken Unknown] pramoxine-calamine [Caladryl] 1 applic TOPICAL TID PRN 5 Days #177 ml 01/06/22 [Rx Last Taken Unknown] prednisone 50 mg PO DAILY 5 Days #25 tab 01/06/22 [Rx Last Taken Unknown] Allergy/AdvReac Type Severity Reaction Status Date / Time lisinopril AdvReac cough Verified 01/06/22 18:20 Surgical History H/O knee surgery History of back surgery History of left heart catheterization (10/20/19) Presence of coronary angioplasty implant and graft (~10/20/19) Social History household members: spouse Smoking Status: Never smoker how long ago did patient quit smokin+ years used cigars ocationally alcohol intake: current alcohol intake frequency: a few times a month Alcohol type: beer substance use type: does not use caffeine: No ROS ROS ED Constitutional Constitutional ED: Denies chills, fever(s) or sweats Eyes Eyes: Denies change in vision ENT ENT ED: Denies ear pain or sore throat Cardiovascular Cardiovascular: Denies chest pain, palpitations or racing heartbeat Respiratory/Chest Respiratory/Chest: Denies cough, dyspnea or sputum Gastrointestinal Gastrointestinal: Denies abdominal pain, constipation, diarrhea, nausea or vomiting Genitourinary Genitourinary ED: Denies dysuria, hematuria or urinary frequency Musculoskeletal Musculoskeletal: Denies arthralgias, myalgias or neck pain Integumentary Reports rash; Denies abscess or Abrasions Neurologic Neurologic: Denies headache(s), paresthesias or weakness Psychiatric Psychiatric: Denies anxiety, depression, suicidal ideation or suicidal thoughts Endocrine Endocrinology: Denies polydipsia or polyuria EXAM Physical Exam Const Vital Signs: 01/06/22 18:17 Temperature 97 F L Temperature Source Temporal Pulse Rate 77 Respiratory Rate 18 Blood Pressure 163/92 H Blood Pressure Mean 115 Pulse Ox 98 Oxygen Delivery Method Room Air Positive well nourished General Appearance ED: NAD HEENT Reports normocephalic, head/scalp atraumatic and moist mucous membranes Eyes PERRL and EOMs intact bilaterally Neck no lymphadenopathy and supple Chest Wall inspection of chest normal and palpation of chest normal Resp normal respiratory effort and clear to auscultation bilaterally Auscultation: Negative for rales, rhonchi or wheezes Cardio regular rate and regular rhythm GI normal to inspection, nondistended, normoactive bowel sounds and non-distended Auscultation: normoactive bowel sounds Palpation: soft Narrative: Deferred Extremity normal to inspection General Extremety ED: Yes edema and tenderness General Extremity: edema Neuro oriented x3 and CN's II-XII intact bilaterally Sensorium / Orientation: alert Motor Exam: strength 5/5 throughout Psych mental status grossly normal Attitude: No agitated Skin Skin Narrative: Erythematous urticarial rash on the right side of the scalp from the forehead to about the vertex and extends laterally from the midline of the scalp down to above the ear. This is not in any dermatomal pattern. It is nontender to palpation. MDM MDM MDM Narrative Medical decision making narrative: Patient presented with a rash. He describes it as itchy and not painful. He notes he has had some edema in the area and now has some swelling of his right eyebrow. I do not appreciate this on examination. I do not believe this is shingles given that he does not have pain that is not a dermatomal distribution. I believe it is likely allergic in nature but I do not understand why it is not over his whole scalp with his whole head was in a harness. We will start him on prednisone. He states that he can watch his blood sugars. He has insulin that he can use to treat any elevated blood sugars. Patient will be discharged home in stable condition. He is to follow-up with his PCP to ensure resolution. Impression: 1. Dermatitis Discharge Plan Triage Chief Complaint: Rash ED Provider: Benton Rogers Dx/Rx/DC Orders Instructions: ED Contact Dermatitis Prescriptions: New prednisone 10 mg tablet 50 mg PO DAILY 5 Days Qty: 25 RF: 0 Caladryl 1-8 % lotion 1 applic topical TID PRN (Reason: itching) 5 Days Qty: 177 RF: 0 No Action tamsulosin 0.4 mg capsule 0.4 mg PO QHS RF: 0 Trulicity 1.5 mg/0.5 mL pen injector 0.75 mg subcut TU RF: 0 Basaglar KwikPen U-100 Insulin 100 unit/mL (3 mL) insulin pen 22 unit subcut BID RF: 0 furosemide 20 mg tablet 20 mg PO BID RF: 0 docusate sodium [Colace] 100 mg capsule 100 mg PO BID RF: 0 krill oil 500 mg capsule 500 mg PO DAILY RF: 0 mirabegron 25 mg tablet extended release 24 hr 25 mg PO DAILY RF: 0 potassium chloride 20 mEq tablet extended release 20 meq PO DAILY RF: 0 SUPER BETA PROSTATE tablet 1 tab PO DAILY RF: 0 hydrocodone-acetaminophen 5-325 mg tablet 1 tab PO TID RF: 0 metformin 1,000 MG tablet extended release 24hr 1,000 mg PO DAILY RF: 0 folic acid 0.4 MG tablet 0.4 mg PO DAILY RF: 0 pravastatin 80 mg tablet 80 mg PO DAILY RF: 0 acetaminophen 500 mg Tablet 1,000 mg PO Q6H PRN PRN (Reason: Pain Score 1-3) Qty: 0 RF: 0 carvedilol 3.125 mg Tablet 3.125 mg PO BIDCM 30 Days Qty: 60 RF: 0 baclofen 10 mg tablet 10 mg PO TID PRN (Reason: Muscle pain/spasm) Qty: 90 RF: 3 gabapentin 600 mg tablet 600 mg PO TID Qty: 90 RF: 2 aspirin [Adult Low Dose Aspirin] 81 mg tablet,delayed release (DR/EC) 81 mg PO DAILY RF: 0 clopidogrel 75 mg tablet 75 mg PO DAILY RF: 0 Primary Care Provider: Paulo Nguyen Referrals: Paulo Nguyen MD [Primary Care Provider] - Disposition Disposition: Home, Self Care Discharge Date/Time: 01/06/22 19:41
== END 2022-01-06 19:41 | disposition home or self-care (01) ==
PROVIDERS: Emergency Provider Student in an Organized Health Care Education/Training Program; PCP Family Medicine; Visit Provider Student in an Organized Health Care Education/Training Program
DX: L30.9 Dermatitis, unspecified (principal); E11.9 Type 2 diabetes mellitus without complications; Z79.4 Long term (current) use of insulin; E78.5 Hyperlipidemia, unspecified; I10 Essential (primary) hypertension; I25.10 Atherosclerotic heart disease of native coronary artery without angina pectoris; R60.9 Edema, unspecified; I25.2 Old myocardial infarction; Z79.899 Other long term (current) drug therapy; Z79.02 Long term (current) use of antithrombotics/antiplatelets; Z79.82 Long term (current) use of aspirin
CPT/HCPCS: 99284

== ENCOUNTER → 2022-05-21 | Outpatient (CLI) | payer MEDICARE, OTHER, SELFPAY ==
[2021-02-27 07:06] VITALS: BMI 40.4
--- NOTE | 2022-05-21 13:43 | CT_ITS ---
STUDY: CT BRAIN WITHOUT CONTRAST REASON FOR EXAM: Male, 77 years old. Parasthesia, left arm RADIATION DOSAGE (If Supplied By Facility): CTDIvol = ( 44.99 ) mGy, DLP = ( 812.98 ) mGycm TECHNIQUE: Transaxial CT imaging of the brain was performed without administration of intravenous contrast material. Individualized dose optimization techniques were used for this CT. COMPARISON: CT brain noncontrast the 20 FINDINGS: Normal soft tissue structures. Normal calvarium. There is mild cerebral atrophy with widening of the extra-axial spaces and ventricular dilatation. There are areas of decreased attenuation within the white matter tracts of the supratentorial brain, consistent with microvascular disease changes. Normal basal ganglia and thalami. Normal brainstem. Normal cerebellum. There is no intracranial hemorrhage. There are no findings of an acute ischemic infarction. Stable right maxillary polyp/retension cyst. The bilateral mastoid air cells and ossicles are unopacified. CT/Brain/Head without Contrast IMPRESSION: Chronic involutional changes of the brain. There is no acute intracranial pathology. There is no significant interval change. Electronically Signed: Caridad Ayoub MD at 7:02 EDT Reading Location ID and State: , Service support ,
== END | disposition home or self-care (01) ==
LOC: CT 13:41
PROVIDERS: PCP Family Medicine; Referring Provider Internal Medicine Cardiovascular Disease; Visit Provider Internal Medicine Cardiovascular Disease
DX: R20.2 Paresthesia of skin (principal); I10 Essential (primary) hypertension; I25.10 Atherosclerotic heart disease of native coronary artery without angina pectoris; E78.5 Hyperlipidemia, unspecified; Z95.5 Presence of coronary angioplasty implant and graft
CPT/HCPCS: 70450

== ENCOUNTER → 2022-05-31 | Outpatient (CLI) | payer MEDICARE, OTHER, SELFPAY ==
[2021-02-27 07:06] VITALS: BMI 40.4
--- NOTE | 2022-05-31 10:21 | ECHOCS_ITS ---
Reason For Study: CAD/ASHD Procedure This was a 2D Doppler, Color Flow transthoracic echocardiogram. The study was technically difficult. Contrast injection was performed. Exam performed in department. Left Ventricle Mildly dilated left ventricle. Mild segmental systolic dysfunction (see wall motion). The estimated ejection fraction is 45 %. Stage 2 diastolic dysfunction. Infero-Basal: Hypokinetic. Basal inferoseptal: Hypokinetic. Mid-Anterior : Hypokinetic. Mid-Lateral : Hypokinetic. Mid-Posterior: Hypokinetic. Mid-Inferior: Hypokinetic. Mid-inferoseptal : Hypokinetic. Accord : Hypokinetic. Right Ventricle Normal RV size. Normal systolic function. Atria The left atrium is moderately enlarged. Normal right atrium. No doppler evidence for ASD. Mitral Valve There is moderate mitral annular calcification. Extension of the mitral annular calcification onto the base of the posterior mitral valve leaflet. Mild (1+) mitral valve insufficiency. Tricuspid Valve Normal tricuspid valve. Trivial tricuspid valve insufficiency. Right ventricular systolic pressure estimated to be 25 mmHg. Aortic Valve Trisinus/trileaflet aortic valve. Moderate focal aortic valve calcification. Pulmonic Valve The pulmonic valve is not well visualized. Great Vessels Normal sized aortic root. Pericardium/Pleural Small pericardial effusion. There are no echocardiographic indications of cardiac tamponade. Medication Diluted definity 2ml given slow IV push to enhance endocardial definition. MMode/2D Measurements & Calculations LVIDd: 5.8 cm IVSd: 1.3 cm Ao root diam: 3.3 cm LVIDs: 4.9 cm LVPWd: 1.1 cm RVDd: 2.9 cm FS: 15.7 % LAV(MOD-bp): 80.3 ml LA A4 area: 27.6 cm2 LA dimension(2D): 5.2 cm LAV(MOD-bp) Indexed: 35.5 ml/m2 LAV(MOD-sp2): 62.1 ml LAV(MOD-sp4): 95.8 ml RA A4 area: 13.6 cm2 Doppler Measurements & Calculations MV E max david: 108.0 cm/sec Lat Peak E' David: 3.7 cm/sec Med Peak E' David: 2.7 cm/sec MV A max david: 79.6 cm/sec E/E' lat: 29.5 E/E' med: 40.4 MV E/A: 1.4 Ao V2 max: 125.6 cm/sec LV V1 max: 92.4 cm/sec PA V2 max: 81.6 cm/sec Ao max P.3 mmHg LV V1 max P.4 mmHg Ao V2 mean: 92.5 cm/sec Ao mean P.7 mmHg Ao V2 VTI: 32.1 cm TR max david: 231.6 cm/sec TR max P.5 mmHg ECHO/Echo Complete W/ Contrast Interpretation Summary The study was technically difficult. Contrast injection was performed. Mildly dilated left ventricle. Mild segmental systolic dysfunction (see wall motion). The estimated ejection fraction is 45 %. The left atrium is moderately enlarged. There is moderate mitral annular calcification. Extension of the mitral annular calcification onto the base of the posterior mi tral valve leaflet. Mild (1+) mitral valve insufficiency. Trivial tricuspid valve insufficiency. Moderate focal aortic valve calcification. Small pericardial effusion. There are no echocardiographic indications of cardiac tamponade. Right ventricular systolic pressure estimated to be 25 mmHg. Stage 2 diastolic dysfunction. Ordering Physician: Ever Guidry Referring Physician: Franklin Nguyen Performed By: Manda Nunez, SARAH, RVT
== END | disposition home or self-care (01) ==
LOC: CVS 10:20
PROVIDERS: PCP Family Medicine; Referring Provider Internal Medicine Cardiovascular Disease; Visit Provider Internal Medicine Cardiovascular Disease
DX: I25.10 Atherosclerotic heart disease of native coronary artery without angina pectoris (principal)
CPT/HCPCS: 93306; Q9957; A4216; C8929

== ENCOUNTER → 2022-06-07 | Outpatient (CLI) | payer MEDICARE, OTHER, SELFPAY ==
[2021-02-27 07:06] VITALS: BMI 40.4
== END | disposition home or self-care (01) ==
LOC: SL 19:57
PROVIDERS: PCP Family Medicine; Referring Provider Psychiatry & Neurology Sleep Medicine; Visit Provider Psychiatry & Neurology Sleep Medicine
DX: G47.33 Obstructive sleep apnea (adult) (pediatric) (principal)
CPT/HCPCS: 95811

== ENCOUNTER 2022-06-08 13:45 | Outpatient (RCR) | payer MEDICARE, OTHER, SELFPAY ==
[2021-02-27 07:06] VITALS: BMI 40.4
[2022-05-18 14:05] VITALS: BP 114/63; PULSE 60; RESP 20; TEMP 35.8; BMI 38.1
--- NOTE | 2022-05-18 16:16 | PCM.WC.HP ---
History of Present Illness Date of Service: 05/18/22 Chief Complaint: Left anterior leg ulcer cluster and right anterior leg ulcer with severe edema History of Wound: Patient is a 77 year old male presents with non healing ulcer on his bilateral lower legs, with severe edema. He saw his PCP about the ulcers at the beginning of March. He has been wearing compression. He has been putting Neosporin on the ulcers. He has a history of DM, [place] 10/29, Stents x7 10/30, neuropathy, EF= 38%, HTN, hyperlipidemia, shingles on his face/head earlier this year. He does sleep in a bed at night. Today he denies fever, chills, nausea, vomiting. Progress of Wound: Left anterior leg cluster ulcers and right anterior leg ulcers with pink wound bed. He has +4 pitting edema of his lower extremities. [facility] Medical History Atherosclerotic heart disease of [place] coronary artery without angina pectoris DM type 2 (diabetes mellitus, type 2) Essential hypertension Hyperlipidemia NSTEMI (non-ST elevated myocardial infarction) Obesity Pericardial effusion Presence of stent in coronary artery (10/20/19) Shingles Spinal stenosis Home Medications folic acid 400 mcg tablet 0.4 mg PO DAILY supplement 10/19/19 [History Last Taken 09/08/21] metformin 1,000 mg tablet,extended release 24hr 1,000 mg PO DAILY diabetes 10/19/19 [History Last Taken 09/11/21 09:00] tamsulosin 0.4 mg capsule 0.4 mg PO QHS BPH 07/02/20 [History Last Taken 09/10/21 21:00] dulaglutide 1.5 mg/0.5 mL subcutaneous pen injector (Trulicity) 0.75 mg subcut TU diabetes 05/15/21 [History Last Taken 09/08/21 08:00] pravastatin 80 mg tablet 80 mg PO DAILY cholesterol 05/15/21 [History Last Taken 09/10/21 21:00] acetaminophen 500 mg tablet 1,000 mg PO Q6H PRN PRN Pain Score 1-3 #0 tabs 09/30/21 [Rx Last Taken Unknown] carvedilol 3.125 mg tablet 3.125 mg PO BIDCM 30 days #60 tabs 09/30/21 [Rx Last Taken Unknown] docusate sodium 100 mg capsule (Colace) 100 mg PO BID 10/29/21 [History Last Taken Unknown] krill oil 500 mg capsule 500 mg PO DAILY 10/29/21 [History Last Taken Unknown] mirabegron 25 mg tablet,extended release 24 hr 25 mg PO DAILY 10/29/21 [History Last Taken Unknown] potassium chloride 20 mEq tablet,extended release 20 meq PO DAILY 10/29/21 [History Last Taken Unknown] baclofen 10 mg tablet 10 mg PO TID PRN Muscle pain/spasm #90 tabs 11/02/21 [Rx Last Taken Unknown] gabapentin 600 mg tablet 600 mg PO TID #90 tabs 11/02/21 [Rx Last Taken Unknown] hydrocodone-acetaminophen 5-325mg 5mg-325mg 1 tab PO TID 12/15/21 [History Last Taken Unknown] aspirin 81 mg tablet,delayed release (Adult Low Dose Aspirin) 81 mg PO DAILY 01/05/22 [History Last Taken Unknown] clopidogrel 75 mg tablet See Rx Instructions .Route .COMPLEX #90 TABLETS 01/27/22 [Rx Last Taken Unknown] cholecalciferol (vitamin D3) 50 mcg (2,000 unit) capsule 50 mcg PO DAILY 01/28/22 [History Last Taken Unknown] furosemide 20 mg tablet 40 mg PO BID 05/13/22 [History Last Taken Unknown] insulin glargine 100 unit/mL (3 mL) subcutaneous pen (Basaglar KwikPen U-100 Insulin) 26 unit subcut BID diabetes 05/13/22 [History Last Taken Unknown] Allergy/AdvReac Type Severity Reaction Status Date / Time lisinopril AdvReac cough Verified 05/13/22 16:02 Surgical History H/O knee surgery History of back surgery History of left heart catheterization (10/20/19) Presence of coronary angioplasty implant and graft (~10/20/19) Social History household members: spouse Smoking Status: Former smoker how long ago did patient quit smokin+ years used cigars ocationally alcohol intake: current alcohol intake frequency: a few times a month Alcohol type: beer substance use type: does not use caffeine: No ROS Constitutional Constitutional: Denies chills, fatigue, fever(s) or frequent falls Eyes Eyes: Reports none ENT HEENT: Reports none Cardiovascular Cardiovascular: Reports leg edema; Denies chest pain or dyspnea Respiratory/Chest Respiratory/Chest: Denies cough or dyspnea Gastrointestinal Gastrointestinal: Reports none Musculoskeletal Musculoskeletal: Reports abnormal gait, joint pain and joint stiffness Integumentary Integumentary: Reports skin ulcer and skin swelling Neurologic Neurologic: Reports numbness; Denies dizziness or frequent falls Psychiatric Psychiatric: Reports none Endocrine Endocrinology: Reports none Vital Signs Vital Signs Vital Signs: 05/18/22 14:05 Temperature 96.5 F L Temperature Source Temporal Pulse Rate 60 Respiratory Rate 20 H Blood Pressure 114/63 Blood Pressure Mean 80 Blood Pressure Source Monitor Blood Pressure Position Sitting Blood Pressure Location Left Arm Oxygen Delivery Method Room Air Weight Weight: 251 lb Body Mass Index (BMI) 38.1 Physical Exam Const alert, oriented x3 and no apparent distress General Appearance: cooperative HEENT normocephalic HEENT Narrative: Pain on right forehead and scalp above right eye from when he had shingles. Neck full ROM Resp normal respiratory effort, normal air movement and clear to auscultation bilaterally Effort and Inspection: able to speak in complete sentences Cardio regular rate and regular rhythm Peripheral Pulses: dorsalis pedis pulses present bilateral 1+ and diminished GI soft to palpation and non-tender Extremity normal capillary refill Extremity Narrative: +4 edema bilateral lower extremities. Walks with a walker Skin Wound Narrative: Left anterior leg ulcer cluster and right anterior leg ulcer, the base is pink. Significant amount of edema present. Neuro oriented x3 Psych mental status grossly normal Debridement Note Debridement Note Wound debrided: Anterior leg ulcer Laterality: Right Type of Debridement: Excisional debridement Anesthesia Used: 5% Lidocaine Gel Depth: Down to and including healthy tissue and in the subcutaneous layer Percentage of wound debrided: 100 Instrument Used: 3mm curette Tissue Removed: Nonviable tissue and slough Severity: Limited To Skin Breakdown Amount of bleeding with debridement: Mild Bleeding Controlled with: Pressure Patient tolerated procedure: Patient tolerated procedure well Post-Debridement Measurements and Additional Note: Post-Debridement Measurements/Treatment JAG - Nurse 1 - General Ulcer Assessment Start: 05/18/22 14:04 Freq: Status: Active Protocol: [place] Activity Type Activity Date Activity User E-sign Co-sign Detail Recorded Client Recorded Date Recorded By Document 05/18/22 14:05 [id number] 05/18/22 14:25 05/18/22 14:05 WC - Today's Visit Information Type of service Initial Visit Arrival Mode Ambulatory, Walker Transfer Assistance None Accompanied by Patient Identification Verified (Name & Yes ) Patient Requires Transmission-Based No Precautions Safety Precautions NA Height and Weight Height 5 ft 8 in Weight 251 lb Weight in Pounds 251.0 lbs Weight Measurement Method Stated by Patient Body Mass Index (BMI) 38.1 BMI Classification Obese BSA - [place] 2.25 Vital Signs Temperature (97.8 F-99.1 F) 96.5 F L Temperature Source Temporal Pulse Rate (60-100) 60 Pulse Location Monitor Respiratory Rate (12-18) 20 H Respiratory rate source Observation Oxygen Delivery Method Room Air Blood Pressure (90/60-120/80) 114/63 Blood Pressure Mean 80 Source Monitor Position Sitting Blood Pressure Location Left Arm History Since Last Visit- (Skip if this is Patient's initial visit) Left Footwear Regular Shoe Right Footwear Regular Shoe Pain Scale: 0-10 Numeric Is Patient Pain Free? Yes Lower Extremity Assessment/ Foot Assessment/ Toe Nail Assessment Right -Posterior Tibial Palpable No -Posterior Tibial Doppler Multiphasic -Dorsalis Pedis Palpable No -Dorsalis Pedis Doppler Multiphasic -Extremity Color Red -Hair Growth on Legs No -Hair Growth on Toes No -Temperature of Extremity Warm -Capillary Refill Greater than 3 Seconds -Dependent Rubor No -Blanched when Elevated No -Lipodermatosclerosis No -Other Deformity No -Prior Foot Ulcer No -Charcot Joint No -Prior Amputation No -Thick Yes -Discolored Yes -Deformed No -Improper Length & Hygeine Yes Left -Posterior Tibial Palpable No -Posterior Tibial Doppler Multiphasic -Dorsalis Pedis Palpable No -Dorsalis Pedis Doppler Multiphasic -Extremity Color Red -Hair Growth on Legs No -Hair Growth on Toes No -Temperature of Extremity Warm -Capillary Refill Greater than 3 Seconds -Dependent Rubor No -Blanched when Elevated No -Lipodermatosclerosis No -Other Deformity No -Prior Foot Ulcer No -Charcot Joint No -Prior Amputation No -Thick Yes -Discolored Yes -Deformed No -Improper Length & Hygeine No Neuropathy Assessment Feet - Top Side and Bottom <Entered> (a) Communication Assessment Preferred language Japanese Regional Sales Associate Required No Able to Read Yes Able to Write Yes Communication Tools None Caregiver Communication Skills No Impairment Impairment Right Hearing Abillity Normal Left Hearing Abillity Normal Visual Assistive Devices Glasses Teaching Assessment Preferences Verbal,Written Barriers to Learning None Readiness To Learn Excellent Willingness to Engage in Self Management High Activies Readiness to Engage in Self Management High Activities Anxiety Level Calm Cooperation Cooperative Perception Coherent Interest in Health Problem Asks Questions Education Importance Acknowledges Need Does Patient Smoke tobacco or other No substances Smoking Status Former smoker Is Patient Diabetic Yes Functional Assessment Assistive Device With Patient Yes List Device(s) with Patient walker Culture/Mormon/[employer] Cultural/Mormon Needs that may affect No Treatment Plan Would you allow our hospital 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 [employer] to contact place of yazidi No Teaching: Wound Center *Welcome to the Wound Center -Person Taught Patient,Family -Teaching Method Discussion -Response to teaching Verbalize understanding (a) 1 - - WC - Nurse 1 - General Ulcer Measurement Start: 05/18/22 14:04 Freq: Status: Active Protocol: Activity Type Activity Date Activity User E-sign Co-sign Detail Recorded Client Recorded Date Recorded By Document 05/18/22 14:05 MW [id number] 05/18/22 14:25 MW 05/18/22 14:05 Wound Center Nurse 1 #2 left billy cluster -Combined with other wound No -Current Size (cm) - Length 3.0 -Current Size (cm) - Width 1.0 -Current Size (cm) - Depth 0.1 -Total Square Cm 3.00 -Date of Last Picture (Recall this 05/18/22 field) -Photo Taken Yes -Epithelialization None Present -Tunneling No -Undermining/Tunneling No -Circular Undermining No -Exudate Amt Large -Exudate Type Serosanguineous -Wound Margin Flat & Intact -Granulation Amt None Present (0 %) -Granulation Quality N/A -Slough/Fibrin Yes -Necrosis Amt Large (67-100%) -Necrotic Tissue Type Adherent Slough -Structure Exposed N/A -Texture (Nina-wound Skin Appearance) Assessed, Localized Edema -Moisture (Nina-wound Skin Appearance) Assessed, Weeping -Color (Nina-wound Skin Appearance) Assessed,Rubor -Temperature (Nina-wound Skin No Abnormality Appearance) (Pt Warm) -Tenderness on Palpation (Nina-wound Yes Skin Appearance) -Ulcer Cleansing Soap and Water -Foul Odor after Cleansing No -Anesthetic Used 5% Lidocaine Gel #1 right billy -Combined with other wound No -Current Size (cm) - Length 0.9 -Current Size (cm) - Width 0.3 -Current Size (cm) - Depth 0.1 -Total Square Cm 0.27 -Date of Last Picture (Recall this 05/18/22 field) -Photo Taken Yes -Epithelialization None Present -Tunneling No -Undermining/Tunneling No -Circular Undermining No -Exudate Amt Large -Exudate Type Serosanguineous -Wound Margin Flat & Intact -Granulation Amt Large (67-100%) -Granulation Quality Red -Slough/Fibrin Yes -Necrosis Amt Small (1-33%) -Necrotic Tissue Type Adherent Slough -Structure Exposed N/A -Texture (Nina-wound Skin Appearance) Assessed, Localized Edema -Moisture (Nina-wound Skin Appearance) Assessed, Weeping -Color (Nina-wound Skin Appearance) Assessed,Rubor -Temperature (Nina-wound Skin No Abnormality Appearance) (Pt Warm) -Tenderness on Palpation (Nina-wound No Skin Appearance) -Ulcer Cleansing Soap and Water -Foul Odor after Cleansing No -Anesthetic Used 5% Lidocaine Gel Lower Limb Edema Present Yes Right Calf (cm) 43.4 Right Ankle (cm) 28.0 Left Calf (cm) 45.0 Left Ankle (cm) 31.0 WC - Nurse 2 - General Ulcer CM Notes Start: 05/18/22 14:04 Freq: Status: Active Protocol: Activity Type Activity Date Activity User E-sign Co-sign Detail Recorded Client Recorded Date Recorded By Document 05/18/22 15:00 RONALDO [id number] 05/18/22 15:05 RONALDO 05/18/22 15:00 Wound Center Nurse 2 #2 left billy cluster -Time 15:03 -Correct Patient Yes -Correct Side, Site, Position Yes -Correct Procedure Yes -Procedure Performed Yes -Type of Procedure Debridement -Clinical Debridement Subcutaneous -Tissue Removed Subcutaneous -Post Debridement (cm) - Length 1.2 -Post Debridement (cm) - Width 1.5 -Post Debridement (cm) - Depth 0.1 -Total Square (Post) (cm) 1.80 -Area of Debridement (cm) - Length 1.2 -Area of Debridement (cm) - Width 1.5 -Total Square (Area) (cm) 1.80 -Tunneling No -Undermining/Tunneling No -Circular Undermining No -Wound/Ulcer Outcome Not Healed -Ulcer Cleansing Rinsed/ Irrigated with Saline -Foul Odor after Cleansing No -Bioengineered Tissue No -Bleeding Controlled with Pressure -Treatment Response Procedure Tolerated Well -Offloading No -Debridement - Subq, 1st 20sq cm Yes #1 right billy -Time 15:03 -Correct Patient Yes -Correct Side, Site, Position Yes -Correct Procedure Yes -Procedure Performed Yes -Type of Procedure Debridement -Clinical Debridement Subcutaneous -Tissue Removed Subcutaneous -Post Debridement (cm) - Length 0.7 -Post Debridement (cm) - Width 0.4 -Post Debridement (cm) - Depth 0.1 -Total Square (Post) (cm) 0.28 -Area of Debridement (cm) - Length 0.7 -Area of Debridement (cm) - Width 0.4 -Total Square (Area) (cm) 0.28 -Tunneling No -Undermining/Tunneling No -Circular Undermining No -Wound/Ulcer Outcome Not Healed -Ulcer Cleansing Rinsed/ Irrigated with Saline -Foul Odor after Cleansing No -Bioengineered Tissue No -Bleeding Controlled with Pressure -Treatment Response Procedure Tolerated Well -Offloading No -Debridement - Subq, 1st 20sq cm No Pain Scale: 0-10 Numeric Is Patient Pain Free? Yes WC - Nurse 3 - General Ulcer D/C NN Start: 05/18/22 14:04 Freq: Status: Active Protocol: Activity Type Activity Date Activity User E-sign Co-sign Detail Recorded Client Recorded Date Recorded By Document 05/18/22 15:27 [facility] [id number] 05/18/22 15:28 [facility] 05/18/22 15:27 Wound Care Nurse 3 #2 left billy cluster -Ulcer Cleansing Rinsed/ Irrigated with Saline -Foul Odor after Cleansing No -Primary Dressing Applied NonAdherent Contact Layer, Other -Other Dressing HYDROGEL -Other Covering SUPERABSORBER SAMPLE #1 right billy -Ulcer Cleansing Rinsed/ Irrigated with Saline -Foul Odor after Cleansing No -Primary Dressing Applied NonAdherent Contact Layer, Other -Other Dressing HYDROGEL -Other Covering SUPERABSORBER SAMPLE BLE -Multi-Layered Wrap Application Multi-Layer Comp - Bilat ($ ) Treatment Response Procedure Tolerated Well Pain Scale: 0-10 Numeric Is Patient Pain Free? Yes WC - Visit Discharge Discharge Condition Stable Ambulatory Status Ambulatory, Walker Transportation Private Auto Accompanied by Additional Wound Wound debrided: Anterior leg ulcer cluster Laterality: Left Type of Debridement: Excisional debridement Anesthesia Used: 5% Lidocaine Gel Depth: Down to and including healthy tissue and in the subcutaneous layer Percentage of wound debrided: 100 Instrument Used: 3mm curette Tissue Removed: Non viable tissue and slough Severity: Fat Layer Exposed Bleeding Controlled with: Pressure Patient tolerated procedure: Patient tolerated procedure well Charges/Coding Visit Charges Office Visits / Consults: [id number] OV L4 Est (25 modifier) Procedures Integumentary [id number]: [id number] Raquel subq tissue 20 sq cm/< Assessment/Plan Assessment/Plan (1) Diabetic ulcer of left lower leg: CODE(S): E11.622 - Type 2 diabetes mellitus with other skin ulcer; L97.929 - Non-pressure chronic ulcer of unspecified part of left lower leg with unspecified severity (2) Diabetic ulcer of right lower leg: CODE(S): E11.622 - Type 2 diabetes mellitus with other skin ulcer; L97.919 - Non-pressure chronic ulcer of unspecified part of right lower leg with unspecified severity (3) Edema: CODE(S): R60.9 - Edema, unspecified (4) Diabetic neuropathy: CODE(S): E11.40 - Type 2 diabetes mellitus with diabetic neuropathy, unspecified (5) Chronic diastolic congestive heart failure: CODE(S): I50.32 - Chronic diastolic (congestive) heart failure (6) Diabetes mellitus: CODE(S): E11.9 - Type 2 diabetes mellitus without complications (7) Debility: CODE(S): R53.81 - Other malaise PLAN: Plan Patient was evaluated at the wound healing center today. A subcutaneous debridement was performed without difficulty. Wound care - Collagen hydrogel topped with gauze/super absorber daily to both the right and left anterior leg ulcers, after washing ulcers with soap and water. Due to his significant amount of edema, will place 3M 2 layer wraps on his bilateral lower extremities. He will come in [place] for a nurse visit to check and see how he doing with the wraps on. Encouraged him to keep his legs elevated when sitting. Avoid standing for long periods of time, but may walk as much as tolerated. Encouraged a diet in low sodium, low carbohydrates and high protein to help with wound healing and to help control his blood sugars. He will follow up in one week.
[2022-05-25 14:46] VITALS: BP 124/67; PULSE 69; RESP 24; TEMP 36.3; BMI 38.1
--- NOTE | 2022-05-25 17:04 | PCM.WC.PN ---
History of Present Illness Date of Service: 05/25/22 Chief Complaint: Left anterior leg ulcer cluster and right anterior leg ulcer with severe edema History of Wound: Patient is a 77 year old male presents with non healing ulcer on his bilateral lower legs, with severe edema. He saw his PCP about the ulcers at the beginning of March. He has been wearing compression. He has been putting Neosporin on the ulcers. He has a history of DM, NH 10/29, Stents x7 10/30, neuropathy, EF= 38%, HTN, hyperlipidemia, shingles on his face/head earlier this year. He does sleep in a bed at night. Wound care to right anterior leg ulcer is collagen hydrogel covered with adaptic and topped with gauze daily. 3M 2 layer wraps for compression. Today he denies fever, chills, nausea, vomiting. Progress of Wound: Left anterior leg cluster ulcers are smaller and right anterior leg ulcer is healed. He has +4 pitting edema of his lower extremities. Objective Data Objective Data Vital Signs: Vital Signs Temp Pulse Resp BP O2 Del Method 97.3 F L 69 24 H 124/67 H Room Air 05/25/22 14:46 05/25/22 14:46 05/25/22 14:46 05/25/22 14:46 05/18/22 14:05 Oxygen Delivery Method Room Air Weight: 251 lb Body Mass Index (BMI) 38.1 Charges/Coding Procedures Integumentary 111xxx-113xx: [id number] Raquel subq tissue 20 sq cm/< Physical Exam Const alert and oriented x3 General Appearance: cooperative HEENT normocephalic Resp normal respiratory effort Effort and Inspection: able to speak in complete sentences Cardio regular rate Peripheral Pulses: dorsalis pedis pulses present bilateral 1+ and diminished Extremity normal capillary refill Extremity Narrative: +3 edema bilateral lower extremities. Walks with a walker Skin Wound Narrative: Left anterior leg ulcer cluster is smaller, base is pink. Right anterior leg ulcer is healed. Edema is improved wit compression. Neuro oriented x3 Psych mental status grossly normal Debridement Note Debridement Note Wound debrided: Anterior leg ulcer Laterality: Left Type of Debridement: Excisional debridement Anesthesia Used: 5% Lidocaine Gel Depth: Down to and including healthy tissue and in the subcutaneous layer Percentage of wound debrided: 100 Instrument Used: 3mm curette Tissue Removed: Nonviable tissue and slough Severity: Limited To Skin Breakdown Amount of bleeding with debridement: Mild Bleeding Controlled with: Pressure Patient tolerated procedure: Patient tolerated procedure well Post-Debridement Measurements and Additional Note: Post-Debridement Measurements/Treatment - Nurse 1 - General Ulcer Assessment Start: 05/18/22 14:04 Freq: Status: Active Protocol: JAG.PHILT Activity Type Activity Date Activity User E-sign Co-sign Detail Recorded Client Recorded Date Recorded By Document 05/18/22 14:05 MW [id number] 05/18/22 14:25 MW Document 05/25/22 14:46 DL [id number] 05/25/22 14:51 DL 05/18/22 05/25/22 14:05 14:46 WC - Today's Visit Information Type of service Initial Visit Follow-up Visit (Physician/SKIMMER SCOOP OPERATOR ) Arrival Mode Ambulatory, Ambulatory, Walker Walker Transfer Assistance None None Accompanied by Patient Identification Verified (Name & Yes ) Patient Requires Transmission-Based No No Precautions Safety Precautions NA Height and Weight Height 5 ft 8 in Weight 251 lb Weight in Pounds 251.0 lbs Weight Measurement Method Stated by Patient Body Mass Index (BMI) 38.1 38.1 BMI Classification Obese Obese BSA - Guicho 2.25 Vital Signs Temperature (97.8 F-99.1 F) 96.5 F L 97.3 F L Temperature Source Temporal Temporal Pulse Rate (60-100) 60 69 Pulse Location Monitor Monitor Respiratory Rate (12-18) 20 H 24 H Respiratory rate source Observation Observation Oxygen Delivery Method Room Air Blood Pressure (90/60-120/80) 114/63 124/67 H Blood Pressure Mean (mm Hg) 80 86 Source Monitor Monitor Position Sitting Blood Pressure Location Left Arm History Since Last Visit- (Skip if this is Patient's initial visit) Have you changed medications since your No last visit? Any new allergies or adverse reactions No Had a fall/change in ADL's that may No increase risk of falls Signs or symptoms of abuse and/or No neglect since last visit Have you been in the hospital since your No last visit? Has dressing in place as prescribed Yes Has compression in place as prescribed No Has offloadiing in place as prescribed N/A Experienced any changes in pain level or No management Left Footwear Regular Shoe Right Footwear Regular Shoe Pain Scale: 0-10 Numeric Is Patient Pain Free? Yes Yes Lower Extremity Assessment/ Foot Assessment/ Toe Nail Assessment Right -Posterior Tibial Palpable No -Posterior Tibial Doppler Multiphasic -Dorsalis Pedis Palpable No -Dorsalis Pedis Doppler Multiphasic -Extremity Color Red -Hair Growth on Legs No -Hair Growth on Toes No -Temperature of Extremity Warm -Capillary Refill Greater than 3 Seconds -Dependent Rubor No -Blanched when Elevated No -Lipodermatosclerosis No -Other Deformity No -Prior Foot Ulcer No -Charcot Joint No -Prior Amputation No -Thick Yes -Discolored Yes -Deformed No -Improper Length & Hygeine Yes Left -Posterior Tibial Palpable No -Posterior Tibial Doppler Multiphasic -Dorsalis Pedis Palpable No -Dorsalis Pedis Doppler Multiphasic -Extremity Color Red -Hair Growth on Legs No -Hair Growth on Toes No -Temperature of Extremity Warm -Capillary Refill Greater than 3 Seconds -Dependent Rubor No -Blanched when Elevated No -Lipodermatosclerosis No -Other Deformity No -Prior Foot Ulcer No -Charcot Joint No -Prior Amputation No -Thick Yes -Discolored Yes -Deformed No -Improper Length & Hygeine No Neuropathy Assessment Feet - Top Side and Bottom <Entered> (a) Communication Assessment Preferred language Occ[place] Psychiatric Aide Required No Able to Read Yes Able to Write Yes Communication Tools None Caregiver Communication Skills No Impairment Impairment Right Hearing Abillity Normal Left Hearing Abillity Normal Visual Assistive Devices Glasses Teaching Assessment Preferences Verbal,Written Barriers to Learning None Readiness To Learn Excellent Willingness to Engage in Self Management High Activies Readiness to Engage in Self Management High Activities Anxiety Level Calm Cooperation Cooperative Perception Coherent Interest in Health Problem Asks Questions Education Importance Acknowledges Need Does Patient Smoke tobacco or other No substances Smoking Status Former smoker Is Patient Diabetic Yes Functional Assessment Assistive Device With Patient Yes List Device(s) with Patient walker Culture/Druze/Director Check Cultural/Druze Needs that may affect No Treatment Plan Would you allow our hospital motion picture set worker to No meet you for the purpose of spiritual/ emotional support? Director Check to contact place of spiritism No Teaching: Wound Center *Welcome to the Wound Center -Person Taught Patient,Family -Teaching Method Discussion -Response to teaching Verbalize understanding (a) 1 - - WC - Nurse 1 - General Ulcer Measurement Start: 05/18/22 14:04 Freq: Status: Active Protocol: Activity Type Activity Date Activity User E-sign Co-sign Detail Recorded Client Recorded Date Recorded By Document 05/18/22 14:05 MW [id number] 05/18/22 14:25 MW Document 05/25/22 14:46 DL [id number] 05/25/22 14:51 DL 05/18/22 05/25/22 14:05 14:46 Wound Center Nurse 1 #1 right billy -Combined with other wound No -Current Size (cm) - Length 0.9 0.1 -Current Size (cm) - Width 0.3 0.1 -Current Size (cm) - Depth 0.1 0.1 -Total Square Cm 0.27 0.01 -Date of Last Picture (Recall this 05/18/22 field) -Photo Taken Yes No -Epithelialization None Present -Tunneling No -Undermining/Tunneling No -Circular Undermining No -Exudate Amt Large None Present -Exudate Type Serosanguineous -Wound Margin Flat & Intact -Granulation Amt Large (67-100%) Large (67-100%) -Granulation Quality Red Coral -Slough/Fibrin Yes -Necrosis Amt Small (1-33%) None Present (0 %) -Necrotic Tissue Type Adherent Slough -Structure Exposed N/A -Texture (Nina-wound Skin Appearance) Assessed, Scarring Localized Edema -Moisture (Nina-wound Skin Appearance) Assessed, No Abnormality Weeping -Color (Nina-wound Skin Appearance) Assessed,Rubor No Abnormality -Temperature (Nina-wound Skin No Abnormality No Abnormality Appearance) (Pt Warm) (Pt Warm) -Tenderness on Palpation (Nina-wound No Skin Appearance) -Ulcer Cleansing Soap and Water Rinsed/ Irrigated with Saline -Foul Odor after Cleansing No No -Anesthetic Used 5% Lidocaine Gel #2 left billy cluster -Combined with other wound No -Current Size (cm) - Length 3.0 1 -Current Size (cm) - Width 1.0 0.8 -Current Size (cm) - Depth 0.1 0.1 -Total Square Cm 3.00 0.8 -Date of Last Picture (Recall this 05/18/22 field) -Photo Taken Yes No -Epithelialization None Present -Tunneling No -Undermining/Tunneling No -Circular Undermining No -Exudate Amt Large Medium -Exudate Type Serosanguineous Serosanguineous -Wound Margin Flat & Intact Indistinct, Non -Visible -Granulation Amt None Present (0 Large (67-100%) %) -Granulation Quality N/A Coral -Slough/Fibrin Yes -Necrosis Amt Large (67-100%) None Present (0 %) -Necrotic Tissue Type Adherent Slough -Structure Exposed N/A -Texture (Nina-wound Skin Appearance) Assessed, Localized Edema Localized Edema ,Scarring -Moisture (Nina-wound Skin Appearance) Assessed, Weeping Weeping -Color (Nina-wound Skin Appearance) Assessed,Rubor No Abnormality -Temperature (Nina-wound Skin No Abnormality No Abnormality Appearance) (Pt Warm) (Pt Warm) -Tenderness on Palpation (Nina-wound Yes No Skin Appearance) -Ulcer Cleansing Soap and Water Rinsed/ Irrigated with Saline -Foul Odor after Cleansing No No -Anesthetic Used 5% Lidocaine 5% Lidocaine Gel Gel Lower Limb Edema Present Yes Right Calf (cm) 43.4 45.3 Right Ankle (cm) 28.0 28 Left Calf (cm) 45.0 45 Left Ankle (cm) 31.0 29.6 - Nurse 2 - General Ulcer CM Notes Start: 05/18/22 14:04 Freq: Status: Active Protocol: Activity Type Activity Date Activity User E-sign Co-sign Detail Recorded Client Recorded Date Recorded By Document 05/18/22 15:00 [id number] 05/18/22 15:05 Document 05/25/22 15:36 [id number] 05/25/22 15:39 05/18/22 05/25/22 15:00 15:36 Wound Center Nurse 2 #1 right billy -Time 15:03 -Correct Patient Yes No -Correct Side, Site, Position Yes No -Correct Procedure Yes No -Procedure Performed Yes No -Type of Procedure Debridement -Clinical Debridement Subcutaneous -Tissue Removed Subcutaneous -Post Debridement (cm) - Length 0.7 0 -Post Debridement (cm) - Width 0.4 0 -Post Debridement (cm) - Depth 0.1 0 -Total Square (Post) (cm) 0.28 0 -Area of Debridement (cm) - Length 0.7 0 -Area of Debridement (cm) - Width 0.4 0 -Total Square (Area) (cm) 0.28 0 -Tunneling No -Undermining/Tunneling No -Circular Undermining No -Wound/Ulcer Outcome Not Healed Healed- Epithelialized -Ulcer Cleansing Rinsed/ Irrigated with Saline -Foul Odor after Cleansing No -Bioengineered Tissue No -Bleeding Controlled with Pressure -Treatment Response Procedure Tolerated Well -Offloading No -Debridement - Subq, 1st 20sq cm No #2 left billy cluster -Time 15:03 15:38 -Correct Patient Yes Yes -Correct Side, Site, Position Yes Yes -Correct Procedure Yes Yes -Procedure Performed Yes Yes -Type of Procedure Debridement Debridement -Clinical Debridement Subcutaneous Subcutaneous -Tissue Removed Subcutaneous Subcutaneous -Post Debridement (cm) - Length 1.2 1.0 -Post Debridement (cm) - Width 1.5 4.5 -Post Debridement (cm) - Depth 0.1 0.1 -Total Square (Post) (cm) 1.80 4.50 -Area of Debridement (cm) - Length 1.2 1.0 -Area of Debridement (cm) - Width 1.5 4.5 -Total Square (Area) (cm) 1.80 4.50 -Tunneling No No -Undermining/Tunneling No No -Circular Undermining No No -Wound/Ulcer Outcome Not Healed Not Healed -Ulcer Cleansing Rinsed/ Rinsed/ Irrigated with Irrigated with Saline Saline -Foul Odor after Cleansing No -Bioengineered Tissue No No -Bleeding Controlled with Pressure Pressure -Treatment Response Procedure Procedure Tolerated Well Tolerated Well -Offloading No No -Debridement - Subq, 1st 20sq cm Yes Yes Pain Scale: 0-10 Numeric Is Patient Pain Free? Yes Yes - Nurse 3 - General Ulcer D/C NN Start: 05/18/22 14:04 Freq: Status: Active Protocol: Activity Type Activity Date Activity User E-sign Co-sign Detail Recorded Client Recorded Date Recorded By Document 05/18/22 15:27 [facility] [id number] 05/18/22 15:28 [facility] Document 05/25/22 15:47 [facility] [id number] 05/25/22 15:48 [facility] 05/18/22 05/25/22 15:27 15:47 Wound Care Nurse 3 #1 right billy -Ulcer Cleansing Rinsed/ Irrigated with Saline -Foul Odor after Cleansing No -Primary Dressing Applied NonAdherent Contact Layer, Other -Other Dressing HYDROGEL -Other Covering SUPERABSORBER SAMPLE #2 left billy cluster -Ulcer Cleansing Rinsed/ Rinsed/ Irrigated with Irrigated with Saline Saline -Foul Odor after Cleansing No No -Primary Dressing Applied NonAdherent C Hydrogel ($), Contact Layer, NonAdherent Other Contact Layer -Other Dressing HYDROGEL -Primary Dressing Covered/Secured with Dry Gauze & Roll Gauze, Secured with Tape -Other Covering SUPERABSORBER DRSG PER MW RN SAMPLE BLE -Multi-Layered Wrap Application Multi-Layer Comp - Bilat ($ ) -Tubular Bandage Single Layer -Size of Tubigrip Used Size E -Size E ($) 2 Treatment Response Procedure Procedure Tolerated Well Tolerated Well Pain Scale: 0-10 Numeric Is Patient Pain Free? Yes Yes WC - Visit Discharge Discharge Condition Stable Stable Ambulatory Status Ambulatory, Ambulatory Walker Transportation Private Auto Private Auto Accompanied by Assessment/Plan Assessment/Plan (1) Diabetic ulcer of left lower leg: CODE(S): E11.622 - Type 2 diabetes mellitus with other skin ulcer; L97.929 - Non-pressure chronic ulcer of unspecified part of left lower leg with unspecified severity (2) Edema: CODE(S): R60.9 - Edema, unspecified (3) Diabetic neuropathy: CODE(S): E11.40 - Type 2 diabetes mellitus with diabetic neuropathy, unspecified (4) Chronic diastolic congestive heart failure: CODE(S): I50.32 - Chronic diastolic (congestive) heart failure (5) Diabetes mellitus: CODE(S): E11.9 - Type 2 diabetes mellitus without complications (6) Debility: CODE(S): R53.81 - Other malaise PLAN: Plan Patient was evaluated at the wound healing center today. A subcutaneous debridement was performed without difficulty. Wound care - Collagen hydrogel topped with adaptic and covered with gauze to left anterior leg ulcer cluster, after washing ulcers with soap and water. Right anterior leg ulcer healed with improved edema. He is tolerating the 3M 2 layer wraps on his bilateral lower extremities. Encouraged him to keep his legs elevated when sitting. Avoid standing for long periods of time, but may walk as much as tolerated. Encouraged a diet in low sodium, low carbohydrates and high protein to help with wound healing and to help control his blood sugars. He will follow up in one week.
[2022-06-01 13:15] VITALS: BP 112/60; PULSE 68; TEMP 36.6; BMI 38.1
--- NOTE | 2022-06-01 16:29 | PN.PCM_ITS ---
History of Present Illness Date of Service: 06/01/22 Chief Complaint: Left anterior leg ulcer cluster and right anterior leg ulcer with severe edema History of Wound: Patient is a 77 year old male presents with non healing ulcer on his bilateral lower legs, with severe edema. He saw his PCP about the ulcers at the beginning of March. He has been wearing compression. He has been putting Neosporin on the ulcers. He has a history of DM, MT 10/29, Stents x7 10/30, neuropathy, EF= 38%, HTN, hyperlipidemia, shingles on his face/head earlier this year. He had a DVT 09/25/21 that was diagnosed while being in TCU for debility from his spinal stenosis, he was placed on Eliquis. He does sleep in a bed at night. Wound care to right anterior leg ulcer is collagen hydrogel covered with adaptic and topped with gauze daily. 3M 2 layer wraps for compression. Today he denies fever, chills, nausea, vomiting. Progress of Wound: Left anterior leg cluster ulcers have improved. Right anterior leg ulcer remains healed. He has +3- pitting edema of his lower extremities. Objective Data Objective Data Vital Signs: Vital Signs Temp Pulse Resp BP O2 Del Method 97.9 F 68 24 H 112/60 Room Air 06/01/22 13:15 06/01/22 13:15 05/25/22 14:46 06/01/22 13:15 05/18/22 14:05 Oxygen Delivery Method Room Air Weight: 251 lb Body Mass Index (BMI) 38.1 Charges/Coding Procedures Integumentary 111xxx-113xx: [id number] Raquel subq tissue 20 sq cm/< Physical Exam Const alert and oriented x3 General Appearance: cooperative HEENT normocephalic Resp normal respiratory effort Effort and Inspection: able to speak in complete sentences Cardio regular rate Peripheral Pulses: dorsalis pedis pulses present bilateral 1+ and diminished Extremity normal capillary refill Extremity Narrative: +3 edema bilateral lower extremities. Walks with a walker Skin Wound Narrative: Left anterior leg ulcer cluster is smaller, base is pink. Right anterior leg ulcer remains healed. Edema is improved with compression. Neuro oriented x3 Psych mental status grossly normal Debridement Note Debridement Note Wound debrided: Anterior leg ulcer Laterality: Left Type of Debridement: Excisional debridement Anesthesia Used: 5% Lidocaine Gel Depth: Down to and including healthy tissue and in the subcutaneous layer Percentage of wound debrided: 100 Instrument Used: 3mm curette Tissue Removed: Nonviable tissue and slough Severity: Limited To Skin Breakdown Amount of bleeding with debridement: Mild Bleeding Controlled with: Pressure Patient tolerated procedure: Patient tolerated procedure well Post-Debridement Measurements and Additional Note: Post-Debridement Measurements/Treatment WC - Nurse 1 - General Ulcer Assessment Start: 05/18/22 14:04 Freq: Status: Active Protocol: [place] Activity Type Activity Date Activity User E-sign Co-sign Detail Recorded Client Recorded Date Recorded By Document 05/18/22 14:05 MW [id number] 05/18/22 14:25 MW Document 05/25/22 14:46 DL [id number] 05/25/22 14:51 DL Document 06/01/22 13:15 AK [id number] 06/01/22 13:17 AK 05/18/22 05/25/22 06/01/22 14:05 14:46 13:15 WC - Today's Visit Information Type of service Initial Visit Follow-up Visit Follow-up Visit (Physician/NUCLEAR UNIT OPERATOR (Physician/NUCLEAR UNIT OPERATOR ) ) Arrival Mode Ambulatory, Ambulatory, Ambulatory, Walker Walker Walker Transfer Assistance None None Accompanied by Patient Identification Verified (Name & Yes Yes ) Patient Requires Transmission-Based No No No Precautions Safety Precautions NA NA Height and Weight Height 5 ft 8 in Weight 251 lb Weight in Pounds 251.0 lbs Weight Measurement Method Stated by Patient Body Mass Index (BMI) 38.1 38.1 38.1 BMI Classification Obese Obese Obese BSA - [place] 2.25 Vital Signs Temperature (97.8 F-99.1 F) 96.5 F L 97.3 F L 97.9 F Temperature Source Temporal Temporal Temporal Pulse Rate (60-100) 60 69 68 Pulse Location Monitor Monitor Monitor Respiratory Rate (12-18) 20 H 24 H Respiratory rate source Observation Observation Oxygen Delivery Method Room Air Blood Pressure (90/60-120/80) 114/63 124/67 H 112/60 Blood Pressure Mean (mm Hg) 80 86 77 Source Monitor Monitor Monitor Position Sitting Blood Pressure Location Left Arm History Since Last Visit- (Skip if this is Patient's initial visit) Have you changed medications since your No No last visit? Any new allergies or adverse reactions No No Had a fall/change in ADL's that may No No increase risk of falls Signs or symptoms of abuse and/or No No neglect since last visit Have you been in the hospital since your No No last visit? Has dressing in place as prescribed Yes Yes Has compression in place as prescribed No N/A Has offloadiing in place as prescribed N/A N/A Experienced any changes in pain level or No No management Left Footwear Regular Shoe Regular Shoe Right Footwear Regular Shoe Regular Shoe Pain Scale: 0-10 Numeric Is Patient Pain Free? Yes Yes Yes Lower Extremity Assessment/ Foot Assessment/ Toe Nail Assessment Right -Posterior Tibial Palpable No -Posterior Tibial Doppler Multiphasic -Dorsalis Pedis Palpable No -Dorsalis Pedis Doppler Multiphasic -Extremity Color Red -Hair Growth on Legs No -Hair Growth on Toes No -Temperature of Extremity Warm -Capillary Refill Greater than 3 Seconds -Dependent Rubor No -Blanched when Elevated No -Lipodermatosclerosis No -Other Deformity No -Prior Foot Ulcer No -Charcot Joint No -Prior Amputation No -Thick Yes -Discolored Yes -Deformed No -Improper Length & Hygeine Yes Left -Posterior Tibial Palpable No -Posterior Tibial Doppler Multiphasic -Dorsalis Pedis Palpable No -Dorsalis Pedis Doppler Multiphasic -Extremity Color Red -Hair Growth on Legs No -Hair Growth on Toes No -Temperature of Extremity Warm -Capillary Refill Greater than 3 Seconds -Dependent Rubor No -Blanched when Elevated No -Lipodermatosclerosis No -Other Deformity No -Prior Foot Ulcer No -Charcot Joint No -Prior Amputation No -Thick Yes -Discolored Yes -Deformed No -Improper Length & Hygeine No Neuropathy Assessment Feet - Top Side and Bottom <Entered> (a) Communication Assessment Preferred language [place]uv[place] Paint Mixer Machine Required No Able to Read Yes Able to Write Yes Communication Tools None Caregiver Communication Skills No Impairment Impairment Right Hearing Abillity Normal Left Hearing Abillity Normal Visual Assistive Devices Glasses Teaching Assessment Preferences Verbal,Written Barriers to Learning None Readiness To Learn Excellent Willingness to Engage in Self Management High Activies Readiness to Engage in Self Management High Activities Anxiety Level Calm Cooperation Cooperative Perception Coherent Interest in Health Problem Asks Questions Education Importance Acknowledges Need Does Patient Smoke tobacco or other No substances Smoking Status Former smoker Is Patient Diabetic Yes Functional Assessment Assistive Device With Patient Yes List Device(s) with Patient walker Culture/Latter-Day/Scrip Clerk Cultural/Latter-Day Needs that may affect No Treatment Plan Would you allow our hospital welder production line arc to No meet you for the purpose of spiritual/ emotional support? Scrip Clerk to contact place [facility] No Teaching: Wound Center *Welcome to the Wound Center -Person Taught Patient,Family -Teaching Method Discussion -Response to teaching Verbalize understanding (a) 1 - - WC - Nurse 1 - General Ulcer Measurement Start: 05/18/22 14:04 Freq: Status: Active Protocol: Activity Type Activity Date Activity User E-sign Co-sign Detail Recorded Client Recorded Date Recorded By Document 05/18/22 14:05 MW [id number] 05/18/22 14:25 MW Document 05/25/22 14:46 DL [id number] 05/25/22 14:51 DL Document 06/01/22 13:15 [place] [id number] 06/01/22 13:17 AK 05/18/22 05/25/22 06/01/22 14:05 14:46 13:15 Wound Center Nurse 1 #1 right billy -Combined with other wound No -Current Size (cm) - Length 0.9 0.1 -Current Size (cm) - Width 0.3 0.1 -Current Size (cm) - Depth 0.1 0.1 -Total Square Cm 0.27 0.01 -Date of Last Picture (Recall this 05/18/22 field) -Photo Taken Yes No -Epithelialization None Present -Tunneling No -Undermining/Tunneling No -Circular Undermining No -Exudate Amt Large None Present -Exudate Type Serosanguineous -Wound Margin Flat & Intact -Granulation Amt Large (67-100%) Large (67-100%) -Granulation Quality [place] -Slough/Fibrin Yes -Necrosis Amt Small (1-33%) None Present (0 %) -Necrotic Tissue Type Adherent Slough -Structure Exposed N/A -Texture (Nina-wound Skin Appearance) Assessed, Scarring Localized Edema -Moisture (Nina-wound Skin Appearance) Assessed, No Abnormality Weeping -Color (Nina-wound Skin Appearance) Assessed,Rubor No Abnormality -Temperature (Nina-wound Skin No Abnormality No Abnormality Appearance) (Pt Warm) (Pt Warm) -Tenderness on Palpation (Nina-wound No Skin Appearance) -Ulcer Cleansing Soap and Water Rinsed/ Irrigated with Saline -Foul Odor after Cleansing No No -Anesthetic Used 5% Lidocaine Gel #2 left billy cluster -Combined with other wound No No -Current Size (cm) - Length 3.0 1 0.1 -Current Size (cm) - Width 1.0 0.8 0.1 -Current Size (cm) - Depth 0.1 0.1 0.1 -Total Square Cm 3.00 0.8 0.01 -Date of Last Picture (Recall this 05/18/22 field) -Photo Taken Yes No No -Epithelialization None Present -Tunneling No No -Undermining/Tunneling No No -Circular Undermining No No -Change in Wound Grade/Stage No -Exudate Amt Large Medium Large -Exudate Type Serosanguineous Serosanguineous Serous -Wound Margin Flat & Intact Indistinct, Non -Visible -Granulation Amt None Present (0 Large (67-100%) None Present (0 %) %) -Granulation Quality N/A [place] -Slough/Fibrin Yes No -Necrosis Amt Large (67-100%) None Present (0 %) -Necrotic Tissue Type Adherent Slough -Structure Exposed N/A N/A -Texture (Nina-wound Skin Appearance) Assessed, Localized Edema Assessed, Localized Edema ,Scarring Localized Edema -Moisture (Nina-wound Skin Appearance) Assessed, Weeping Weeping Weeping -Color (Nina-wound Skin Appearance) Assessed,Rubor No Abnormality No Abnormality, Assessed -Temperature (Nina-wound Skin No Abnormality No Abnormality No Abnormality Appearance) (Pt Warm) (Pt Warm) (Pt Warm) -Tenderness on Palpation (Nina-wound Yes No No Skin Appearance) -Ulcer Cleansing Soap and Water Rinsed/ Rinsed/ Irrigated with Irrigated with Saline Saline -Foul Odor after Cleansing No No No -Anesthetic Used 5% Lidocaine 5% Lidocaine Gel Gel Lower Limb Edema Present Yes Right Calf (cm) 43.4 45.3 Right Ankle (cm) 28.0 28 Left Calf (cm) 45.0 45 Left Ankle (cm) 31.0 29.6 WC - Nurse 2 - General Ulcer CM Notes Start: 05/18/22 14:04 Freq: Status: Active Protocol: Activity Type Activity Date Activity User E-sign Co-sign Detail Recorded Client Recorded Date Recorded By Document 05/18/22 15:00 [id number] 05/18/22 15:05 Document 05/25/22 15:36 [id number] 05/25/22 15:39 Document 06/01/22 13:26 [id number] 06/01/22 13:31 05/18/22 05/25/22 06/01/22 15:00 15:36 13:26 Wound Center Nurse 2 #1 right billy -Time 15:03 -Correct Patient Yes No -Correct Side, Site, Position Yes No -Correct Procedure Yes No -Procedure Performed Yes No -Type of Procedure Debridement -Clinical Debridement Subcutaneous -Tissue Removed Subcutaneous -Post Debridement (cm) - Length 0.7 0 -Post Debridement (cm) - Width 0.4 0 -Post Debridement (cm) - Depth 0.1 0 -Total Square (Post) (cm) 0.28 0 -Area of Debridement (cm) - Length 0.7 0 -Area of Debridement (cm) - Width 0.4 0 -Total Square (Area) (cm) 0.28 0 -Tunneling No -Undermining/Tunneling No -Circular Undermining No -Wound/Ulcer Outcome Not Healed Healed- Epithelialized -Ulcer Cleansing Rinsed/ Irrigated with Saline -Foul Odor after Cleansing No -Bioengineered Tissue No -Bleeding Controlled with Pressure -Treatment Response Procedure Tolerated Well -Offloading No -Debridement - Subq, 1st 20sq cm No #2 left billy cluster -Time 15:03 15:38 13:30 -Correct Patient Yes Yes Yes -Correct Side, Site, Position Yes Yes Yes -Correct Procedure Yes Yes Yes -Procedure Performed Yes Yes Yes -Type of Procedure Debridement Debridement Debridement -Clinical Debridement Subcutaneous Subcutaneous Subcutaneous -Tissue Removed Subcutaneous Subcutaneous Subcutaneous -Post Debridement (cm) - Length 1.2 1.0 0.6 -Post Debridement (cm) - Width 1.5 4.5 4.6 -Post Debridement (cm) - Depth 0.1 0.1 0.1 -Total Square (Post) (cm) 1.80 4.50 2.76 -Area of Debridement (cm) - Length 1.2 1.0 0.6 -Area of Debridement (cm) - Width 1.5 4.5 4.6 -Total Square (Area) (cm) 1.80 4.50 2.76 -Tunneling No No No -Undermining/Tunneling No No No -Circular Undermining No No No -Wound/Ulcer Outcome Not Healed Not Healed Not Healed -Ulcer Cleansing Rinsed/ Rinsed/ Rinsed/ Irrigated with Irrigated with Irrigated with Saline Saline Saline -Foul Odor after Cleansing No No -Bioengineered Tissue No No No -Bleeding Controlled with Pressure Pressure Pressure -Treatment Response Procedure Procedure Procedure Tolerated Well Tolerated Well Tolerated Well -Offloading No No No -Debridement - Subq, 1st 20sq cm Yes Yes Yes Pain Scale: 0-10 Numeric Is Patient Pain Free? Yes Yes Yes WC - Nurse 3 - General Ulcer D/C NN Start: 05/18/22 14:04 Freq: Status: Active Protocol: Activity Type Activity Date Activity User E-sign Co-sign Detail Recorded Client Recorded Date Recorded By Document 05/18/22 15:27 [facility] [id number] 05/18/22 15:28 [facility] Document 05/25/22 15:47 [facility] [id number] 05/25/22 15:48 [facility] Document 06/01/22 13:46 [place] [id number] 06/01/22 13:47 [place] 05/18/22 05/25/22 06/01/22 15:27 15:47 13:46 Wound Care Nurse 3 #1 right billy -Ulcer Cleansing Rinsed/ Irrigated with Saline -Foul Odor after Cleansing No -Primary Dressing Applied NonAdherent Contact Layer, Other -Other Dressing HYDROGEL -Other Covering SUPERABSORBER SAMPLE #2 left billy cluster -Ulcer Cleansing Rinsed/ Rinsed/ Rinsed/ Irrigated with Irrigated with Irrigated with Saline Saline Saline -Foul Odor after Cleansing No No No -Negative Pressure Wound Therapy N/A -Primary Dressing Applied NonAdherent C Hydrogel ($), NonAdherent Contact Layer, NonAdherent Contact Layer Other Contact Layer -Other Dressing HYDROGEL hydrogel -Primary Dressing Covered/Secured with Dry Gauze & Dry Gauze & Roll Gauze, Roll Gauze, Secured with Secured with Tape Tape -Other Covering SUPERABSORBER DRSG PER MW RN SAMPLE BLE -Lotion applied to leg before No compression wrap -Multi-Layered Wrap Application Multi-Layer Comp - Bilat ($ ) -Tubular Bandage Single Layer Double Layer -Size of Tubigrip Used Size E Size E -Size E ($) 2 2 Treatment Response Procedure Procedure Tolerated Well Tolerated Well Pain Scale: 0-10 Numeric Is Patient Pain Free? Yes Yes Yes WC - Visit Discharge Discharge Condition Stable Stable Stable Ambulatory Status Ambulatory, Ambulatory Ambulatory, Walker Walker Transportation Private Auto Private Auto Private Auto Accompanied by Medication Reconcilliation completed & Yes provided to patient/care provider Clinical Summary of Care Provided Yes Assessment/Plan Assessment/Plan (1) Diabetic ulcer of left lower leg: CODE(S): E11.622 - Type 2 diabetes mellitus with other skin ulcer; L97.929 - Non-pressure chronic ulcer of unspecified part of left lower leg with unspecified severity (2) Edema: CODE(S): R60.9 - Edema, unspecified (3) Diabetic neuropathy: CODE(S): E11.40 - Type 2 diabetes mellitus with diabetic neuropathy, unspecified (4) Chronic diastolic congestive heart failure: CODE(S): I50.32 - Chronic diastolic (congestive) heart failure (5) Diabetes mellitus: CODE(S): E11.9 - Type 2 diabetes mellitus without complications (6) Debility: CODE(S): R53.81 - Other malaise PLAN: Plan Patient was evaluated at the wound healing center today. A subcutaneous debridement was performed without difficulty. Wound care - Collagen hydrogel topped with adaptic and covered with gauze to left anterior leg ulcer cluster, after washing ulcers with soap and water. Right anterior leg ulcer healed with improved edema. Compression - double tubigrip. He had venous doppler 09/25/21 when he was admitted to TCU which was positive for DVT and he was placed on Eliquis. Will order vascular studies. Encouraged him to keep his legs elevated when sitting. Avoid standing for long periods of time, but may walk as much as tolerated. Encouraged a diet in low sodium, low carbohydrates and high protein to help with wound healing and to help control his blood sugars. He will follow up in one week.
[2022-06-08 13:45] VITALS: BP 122/61; PULSE 71; RESP 18; TEMP 35.5; BMI 38.1
--- NOTE | 2022-06-08 15:37 | PN.PCM_ITS ---
History of Present Illness Date of Service: 06/08/22 Chief Complaint: Left anterior leg ulcer cluster and right anterior leg ulcer with severe edema History of Wound: Patient is a 77 year old male presents with non healing ulcer on his bilateral lower legs, with severe edema. He saw his PCP about the ulcers at the beginning of March. He has been wearing compression. He has been putting Neosporin on the ulcers. He has a history of DM, ND 10/29, Stents x7 10/30, neuropathy, EF= 38%, HTN, hyperlipidemia, shingles on his face/head earlier this year. He had a DVT 09/25/21 that was diagnosed while being in TCU for debility from his spinal stenosis, he was placed on Eliquis. He does sleep in a bed at night. Wound care to right anterior leg ulcer is collagen hydrogel covered with adaptic and topped with gauze daily. 3M 2 layer wraps for compression. Today he denies fever, chills, nausea, vomiting. Progress of Wound: Left anterior leg cluster ulcers have improved. Right anterior leg ulcer remains healed. He has +3- pitting edema of his lower extremities. Objective Data Objective Data Vital Signs: Vital Signs Temp Pulse Resp BP O2 Del Method 96 F L 71 18 122/61 H Room Air 06/08/22 13:45 06/08/22 13:45 06/08/22 13:45 06/08/22 13:45 06/08/22 13:45 Oxygen Delivery Method Room Air Weight: 251 lb Body Mass Index (BMI) 38.1 Charges/Coding Procedures Integumentary 111xxx-113xx: [id number] Raquel subq tissue 20 sq cm/< Physical Exam Const alert and oriented x3 General Appearance: cooperative HEENT normocephalic Resp normal respiratory effort Effort and Inspection: able to speak in complete sentences Cardio regular rate Peripheral Pulses: dorsalis pedis pulses present bilateral 1+ and diminished Extremity normal capillary refill Extremity Narrative: +3 edema bilateral lower extremities. Walks with a walker Skin Wound Narrative: Left anterior leg ulcer cluster is smaller, base is pink. Right anterior leg ulcer remains healed. Edema is improved with compression. Neuro oriented x3 Psych mental status grossly normal Debridement Note Debridement Note Wound debrided: Anterior leg ulcer Laterality: Left Type of Debridement: Excisional debridement Anesthesia Used: 5% Lidocaine Gel Depth: Down to and including healthy tissue and in the subcutaneous layer Percentage of wound debrided: 100 Instrument Used: 3mm curette Tissue Removed: Nonviable tissue and slough Severity: Limited To Skin Breakdown Amount of bleeding with debridement: Mild Bleeding Controlled with: Pressure Patient tolerated procedure: Patient tolerated procedure well Post-Debridement Measurements and Additional Note: Post-Debridement Measurements/Treatment WC - Nurse 1 - General Ulcer Assessment Start: 05/18/22 14:04 Freq: Status: Active Protocol: [place] Activity Type Activity Date Activity User E-sign Co-sign Detail Recorded Client Recorded Date Recorded By Document 05/18/22 14:05 MW [id number] 05/18/22 14:25 MW Document 05/25/22 14:46 DL [id number] 05/25/22 14:51 DL Document 06/01/22 13:15 AK [id number] 06/01/22 13:17 AK Document 06/08/22 13:45 BMF [id number] 06/08/22 13:58 BMF 05/18/22 05/25/22 06/01/22 14:05 14:46 13:15 - Today's Visit Information Type of service Initial Visit Follow-up Visit Follow-up Visit (Physician/PROPERTY MANAGEMENT INTERN (Physician/PROPERTY MANAGEMENT INTERN ) ) Arrival Mode Ambulatory, Ambulatory, Ambulatory, Walker Walker Walker Transfer Assistance None None Accompanied by Patient Identification Verified (Name & Yes Yes ) Patient Requires Transmission-Based No No No Precautions Safety Precautions NA NA Height and Weight Height 5 ft 8 in Weight 251 lb Weight in Pounds 251.0 lbs Weight Measurement Method Stated by Patient Body Mass Index (BMI) 38.1 38.1 38.1 BMI Classification Obese Obese Obese BSA - Guicho 2.25 Vital Signs Temperature (97.8 F-99.1 F) 96.5 F L 97.3 F L 97.9 F Temperature Source Temporal Temporal Temporal Pulse Rate (60-100) 60 69 68 Pulse Location Monitor Monitor Monitor Respiratory Rate (12-18) 20 H 24 H Respiratory rate source Observation Observation Oxygen Delivery Method Room Air Blood Pressure (90/60-120/80) 114/63 124/67 H 112/60 Blood Pressure Mean (mm Hg) 80 86 77 Source Monitor Monitor Monitor Position Sitting Blood Pressure Location Left Arm History Since Last Visit- (Skip if this is Patient's initial visit) Have you changed medications since your No No last visit? Any new allergies or adverse reactions No No Had a fall/change in ADL's that may No No increase risk of falls Signs or symptoms of abuse and/or No No neglect since last visit Have you been in the hospital since your No No last visit? Has dressing in place as prescribed Yes Yes Has compression in place as prescribed No N/A Has offloadiing in place as prescribed N/A N/A Experienced any changes in pain level or No No management Left Footwear Regular Shoe Regular Shoe Right Footwear Regular Shoe Regular Shoe Pain Scale: 0-10 Numeric Is Patient Pain Free? Yes Yes Yes Lower Extremity Assessment/ Foot Assessment/ Toe Nail Assessment Right -Posterior Tibial Palpable No -Posterior Tibial Doppler Multiphasic -Dorsalis Pedis Palpable No -Dorsalis Pedis Doppler Multiphasic -Extremity Color Red -Hair Growth on Legs No -Hair Growth on Toes No -Temperature of Extremity Warm -Capillary Refill Greater than 3 Seconds -Dependent Rubor No -Blanched when Elevated No -Lipodermatosclerosis No -Other Deformity No -Prior Foot Ulcer No -Charcot Joint No -Prior Amputation No -Thick Yes -Discolored Yes -Deformed No -Improper Length & Hygeine Yes Left -Posterior Tibial Palpable No -Posterior Tibial Doppler Multiphasic -Dorsalis Pedis Palpable No -Dorsalis Pedis Doppler Multiphasic -Extremity Color Red -Hair Growth on Legs No -Hair Growth on Toes No -Temperature of Extremity Warm -Capillary Refill Greater than 3 Seconds -Dependent Rubor No -Blanched when Elevated No -Lipodermatosclerosis No -Other Deformity No -Prior Foot Ulcer No -Charcot Joint No -Prior Amputation No -Thick Yes -Discolored Yes -Deformed No -Improper Length & Hygeine No Neuropathy Assessment Feet - Top Side and Bottom <Entered> (a) Communication Assessment Preferred language Nepali Guardian Family Member Required No Able to Read Yes Able to Write Yes Communication Tools None Caregiver Communication Skills No Impairment Impairment Right Hearing Abillity Normal Left Hearing Abillity Normal Visual Assistive Devices Glasses Teaching Assessment Preferences Verbal,Written Barriers to Learning None Readiness To Learn Excellent Willingness to Engage in Self Management High Activies Readiness to Engage in Self Management High Activities Anxiety Level Calm Cooperation Cooperative Perception Coherent Interest in Health Problem Asks Questions Education Importance Acknowledges Need Does Patient Smoke tobacco or other No substances Smoking Status Former smoker Is Patient Diabetic Yes Functional Assessment Assistive Device With Patient Yes List Device(s) with Patient walker Culture/Pentecostalism/Sales Support Engineer Cultural/Pentecostalism Needs that may affect No Treatment Plan Would you allow our hospital traffic engineering technician to No meet you for the purpose of spiritual/ emotional support? Sales Support Engineer to contact place of christianity No Teaching: Wound Center *Welcome to the Wound Center -Person Taught Patient,Family -Teaching Method Discussion -Response to teaching Verbalize understanding 06/08/22 13:45 WC - Today's Visit Information Type of service Follow-up Visit (Physician/PROPERTY MANAGEMENT INTERN ) Arrival Mode Ambulatory, Walker Transfer Assistance None Accompanied by Patient Identification Verified (Name & Yes ) Patient Requires Transmission-Based No Precautions Safety Precautions Height and Weight Height Weight Weight in Pounds Weight Measurement Method Body Mass Index (BMI) 38.1 BMI Classification Obese BSA - Guicho Vital Signs Temperature (97.8 F-99.1 F) 96 F L Temperature Source Temporal Pulse Rate (60-100) 71 Pulse Location Monitor Respiratory Rate (12-18) 18 Respiratory rate source Observation Oxygen Delivery Method Room Air Blood Pressure (90/60-120/80) 122/61 H Blood Pressure Mean (mm Hg) 81 Source Monitor Position Sitting Blood Pressure Location Right Arm History Since Last Visit- (Skip if this is Patient's initial visit) Have you changed medications since your No last visit? Any new allergies or adverse reactions No Had a fall/change in ADL's that may No increase risk of falls Signs or symptoms of abuse and/or No neglect since last visit Have you been in the hospital since your No last visit? Has dressing in place as prescribed Yes Has compression in place as prescribed Yes Has offloadiing in place as prescribed N/A Experienced any changes in pain level or No management Left Footwear Diabetic Shoe Right Footwear Diabetic Shoe Pain Scale: 0-10 Numeric Is Patient Pain Free? Yes Lower Extremity Assessment/ Foot Assessment/ Toe Nail Assessment Right -Posterior Tibial Palpable -Posterior Tibial Doppler -Dorsalis Pedis Palpable -Dorsalis Pedis Doppler -Extremity Color -Hair Growth on Legs -Hair Growth on Toes -Temperature of Extremity -Capillary Refill -Dependent Rubor -Blanched when Elevated -Lipodermatosclerosis -Other Deformity -Prior Foot Ulcer -Charcot Joint -Prior Amputation -Thick -Discolored -Deformed -Improper Length & Hygeine Left -Posterior Tibial Palpable -Posterior Tibial Doppler -Dorsalis Pedis Palpable -Dorsalis Pedis Doppler -Extremity Color -Hair Growth on Legs -Hair Growth on Toes -Temperature of Extremity -Capillary Refill -Dependent Rubor -Blanched when Elevated -Lipodermatosclerosis -Other Deformity -Prior Foot Ulcer -Charcot Joint -Prior Amputation -Thick -Discolored -Deformed -Improper Length & Hygeine Neuropathy Assessment Feet - Top Side and Bottom Communication Assessment Preferred high school foreign language tutor Required Able to Read Able to Write Communication Tools Caregiver Communication Skills Impairment Right Hearing Abillity Left Hearing Abillity Visual Assistive Devices Teaching Assessment Preferences Barriers to Learning Readiness To Learn Willingness to Engage in Self Management Activies Readiness to Engage in Self Management Activities Anxiety Level Cooperation Perception Interest in Health Problem Education Importance Does Patient Smoke tobacco or other substances Smoking Status Is Patient Diabetic Functional Assessment Assistive Device With Patient List Device(s) with Patient Culture/Pentecostalism/Sales Support Engineer Cultural/Pentecostalism Needs that may affect Treatment Plan Would you allow our hospital traffic engineering technician to meet you for the purpose of spiritual/ emotional support? Sales Support Engineer to contact place of christianity Teaching: Wound Center *Welcome to the Wound Center -Person Taught -Teaching Method -Response to teaching (a) 1 - - WC - Nurse 1 - General Ulcer Measurement Start: 05/18/22 14:04 Freq: Status: Active Protocol: Activity Type Activity Date Activity User E-sign Co-sign Detail Recorded Client Recorded Date Recorded By Document 05/18/22 14:05 MW [id number] 05/18/22 14:25 MW Document 05/25/22 14:46 DL [id number] 05/25/22 14:51 DL Document 06/01/22 13:15 AK [id number] 06/01/22 13:17 AK Document 06/08/22 13:45 BMF [id number] 06/08/22 13:58 BMF 05/18/22 05/25/22 06/01/22 14:05 14:46 13:15 Wound Center Nurse 1 #1 right billy -Combined with other wound No -Current Size (cm) - Length 0.9 0.1 -Current Size (cm) - Width 0.3 0.1 -Current Size (cm) - Depth 0.1 0.1 -Total Square Cm 0.27 0.01 -Date of Last Picture (Recall this 05/18/22 field) -Photo Taken Yes No -Epithelialization None Present -Tunneling No -Undermining/Tunneling No -Circular Undermining No -Exudate Amt Large None Present -Exudate Type Serosanguineous -Wound Margin Flat & Intact -Granulation Amt Large (67-100%) Large (67-100%) -Granulation Quality [place] -Slough/Fibrin Yes -Necrosis Amt Small (1-33%) None Present (0 %) -Necrotic Tissue Type Adherent Slough -Structure Exposed N/A -Texture (Nina-wound Skin Appearance) Assessed, Scarring Localized Edema -Moisture (Nina-wound Skin Appearance) Assessed, No Abnormality Weeping -Color (Nina-wound Skin Appearance) Assessed,Rubor No Abnormality -Temperature (Nina-wound Skin No Abnormality No Abnormality Appearance) (Pt Warm) (Pt Warm) -Tenderness on Palpation (Nina-wound No Skin Appearance) -Ulcer Cleansing Soap and Water Rinsed/ Irrigated with Saline -Foul Odor after Cleansing No No -Anesthetic Used 5% Lidocaine Gel #2 left billy cluster -Combined with other wound No No -Current Size (cm) - Length 3.0 1 0.1 -Current Size (cm) - Width 1.0 0.8 0.1 -Current Size (cm) - Depth 0.1 0.1 0.1 -Total Square Cm 3.00 0.8 0.01 -Date of Last Picture (Recall this 05/18/22 field) -Photo Taken Yes No No -Epithelialization None Present -Tunneling No No -Undermining/Tunneling No No -Circular Undermining No No -Change in Wound Grade/Stage No -Exudate Amt Large Medium Large -Exudate Type Serosanguineous Serosanguineous Serous -Wound Margin Flat & Intact Indistinct, Non -Visible -Granulation Amt None Present (0 Large (67-100%) None Present (0 %) %) -Granulation Quality N/A [place] -Slough/Fibrin Yes No -Necrosis Amt Large (67-100%) None Present (0 %) -Necrotic Tissue Type Adherent Slough -Structure Exposed N/A N/A -Texture (Nina-wound Skin Appearance) Assessed, Localized Edema Assessed, Localized Edema ,Scarring Localized Edema -Moisture (Nina-wound Skin Appearance) Assessed, Weeping Weeping Weeping -Color (Nina-wound Skin Appearance) Assessed,Rubor No Abnormality No Abnormality, Assessed -Temperature (Nina-wound Skin No Abnormality No Abnormality No Abnormality Appearance) (Pt Warm) (Pt Warm) (Pt Warm) -Tenderness on Palpation (Nina-wound Yes No No Skin Appearance) -Ulcer Cleansing Soap and Water Rinsed/ Rinsed/ Irrigated with Irrigated with Saline Saline -Foul Odor after Cleansing No No No -Anesthetic Used 5% Lidocaine 5% Lidocaine Gel Gel Lower Limb Edema Present Yes Right Calf (cm) 43.4 45.3 Right Ankle (cm) 28.0 28 Left Calf (cm) 45.0 45 Left Ankle (cm) 31.0 29.6 06/08/22 13:45 Wound Center Nurse 1 #1 right billy -Combined with other wound -Current Size (cm) - Length -Current Size (cm) - Width -Current Size (cm) - Depth -Total Square Cm -Date of Last Picture (Recall this field) -Photo Taken -Epithelialization -Tunneling -Undermining/Tunneling -Circular Undermining -Exudate Amt -Exudate Type -Wound Margin -Granulation Amt -Granulation Quality -Slough/Fibrin -Necrosis Amt -Necrotic Tissue Type -Structure Exposed -Texture (Nina-wound Skin Appearance) -Moisture (Nina-wound Skin Appearance) -Color (Nina-wound Skin Appearance) -Temperature (Nina-wound Skin Appearance) -Tenderness on Palpation (Nina-wound Skin Appearance) -Ulcer Cleansing -Foul Odor after Cleansing -Anesthetic Used #2 left billy cluster -Combined with other wound No -Current Size (cm) - Length 0.1 -Current Size (cm) - Width 0.1 -Current Size (cm) - Depth 0.1 -Total Square Cm 0.01 -Date of Last Picture (Recall this field) -Photo Taken -Epithelialization Medium 34-66% -Tunneling No -Undermining/Tunneling No -Circular Undermining No -Change in Wound Grade/Stage -Exudate Amt -Exudate Type Serous -Wound Margin Distinct, Outline Attached -Granulation Amt None Present (0 %) -Granulation Quality -Slough/Fibrin Yes -Necrosis Amt Large (67-100%) -Necrotic Tissue Type Adherent Slough -Structure Exposed -Texture (Nina-wound Skin Appearance) Assessed, Scarring -Moisture (Nina-wound Skin Appearance) Assessed,Dry/ Scaly -Color (Nina-wound Skin Appearance) Assessed -Temperature (Nina-wound Skin No Abnormality Appearance) (Pt Warm) -Tenderness on Palpation (Nina-wound No Skin Appearance) -Ulcer Cleansing Rinsed/ Irrigated with Saline -Foul Odor after Cleansing No -Anesthetic Used 5% Lidocaine Gel Lower Limb Edema Present Yes Right Calf (cm) Right Ankle (cm) Left Calf (cm) 41.2 Left Ankle (cm) 29.4 WC - Nurse 2 - General Ulcer CM Notes Start: 05/18/22 14:04 Freq: Status: Active Protocol: Activity Type Activity Date Activity User E-sign Co-sign Detail Recorded Client Recorded Date Recorded By Document 05/18/22 15:00 [id number] 05/18/22 15:05 Document 05/25/22 15:36 [id number] 05/25/22 15:39 Document 06/01/22 13:26 [id number] 06/01/22 13:31 Document 06/08/22 14:26 [id number] 06/08/22 14:28 05/18/22 05/25/22 06/01/22 15:00 15:36 13:26 Wound Center Nurse 2 #1 right billy -Time 15:03 -Correct Patient Yes No -Correct Side, Site, Position Yes No -Correct Procedure Yes No -Procedure Performed Yes No -Type of Procedure Debridement -Clinical Debridement Subcutaneous -Tissue Removed Subcutaneous -Post Debridement (cm) - Length 0.7 0 -Post Debridement (cm) - Width 0.4 0 -Post Debridement (cm) - Depth 0.1 0 -Total Square (Post) (cm) 0.28 0 -Area of Debridement (cm) - Length 0.7 0 -Area of Debridement (cm) - Width 0.4 0 -Total Square (Area) (cm) 0.28 0 -Tunneling No -Undermining/Tunneling No -Circular Undermining No -Wound/Ulcer Outcome Not Healed Healed- Epithelialized -Ulcer Cleansing Rinsed/ Irrigated with Saline -Foul Odor after Cleansing No -Bioengineered Tissue No -Bleeding Controlled with Pressure -Treatment Response Procedure Tolerated Well -Offloading No -Debridement - Subq, 1st 20sq cm No #2 left billy cluster -Time 15:03 15:38 13:30 -Correct Patient Yes Yes Yes -Correct Side, Site, Position Yes Yes Yes -Correct Procedure Yes Yes Yes -Procedure Performed Yes Yes Yes -Type of Procedure Debridement Debridement Debridement -Clinical Debridement Subcutaneous Subcutaneous Subcutaneous -Tissue Removed Subcutaneous Subcutaneous Subcutaneous -Post Debridement (cm) - Length 1.2 1.0 0.6 -Post Debridement (cm) - Width 1.5 4.5 4.6 -Post Debridement (cm) - Depth 0.1 0.1 0.1 -Total Square (Post) (cm) 1.80 4.50 2.76 -Area of Debridement (cm) - Length 1.2 1.0 0.6 -Area of Debridement (cm) - Width 1.5 4.5 4.6 -Total Square (Area) (cm) 1.80 4.50 2.76 -Tunneling No No No -Undermining/Tunneling No No No -Circular Undermining No No No -Wound/Ulcer Outcome Not Healed Not Healed Not Healed -Ulcer Cleansing Rinsed/ Rinsed/ Rinsed/ Irrigated with Irrigated with Irrigated with Saline Saline Saline -Foul Odor after Cleansing No No -Bioengineered Tissue No No No -Bleeding Controlled with Pressure Pressure Pressure -Treatment Response Procedure Procedure Procedure Tolerated Well Tolerated Well Tolerated Well -Offloading No No No -Debridement - Subq, 20sq cm Yes Yes Yes Pain Scale: 0-10 Numeric Is Patient Pain Free? Yes Yes Yes 06/08/22 14:26 Wound Center Nurse 2 #1 right billy -Time -Correct Patient -Correct Side, Site, Position -Correct Procedure -Procedure Performed -Type of Procedure -Clinical Debridement -Tissue Removed -Post Debridement (cm) - Length -Post Debridement (cm) - Width -Post Debridement (cm) - Depth -Total Square (Post) (cm) -Area of Debridement (cm) - Length -Area of Debridement (cm) - Width -Total Square (Area) (cm) -Tunneling -Undermining/Tunneling -Circular Undermining -Wound/Ulcer Outcome -Ulcer Cleansing -Foul Odor after Cleansing -Bioengineered Tissue -Bleeding Controlled with -Treatment Response -Offloading -Debridement - Subq, 1st 20sq cm #2 left billy cluster -Time 14:27 -Correct Patient Yes -Correct Side, Site, Position Yes -Correct Procedure Yes -Procedure Performed Yes -Type of Procedure Debridement -Clinical Debridement Subcutaneous -Tissue Removed Subcutaneous -Post Debridement (cm) - Length 0.4 -Post Debridement (cm) - Width 4.2 -Post Debridement (cm) - Depth 0.1 -Total Square (Post) (cm) 1.68 -Area of Debridement (cm) - Length 0.4 -Area of Debridement (cm) - Width 4.2 -Total Square (Area) (cm) 1.68 -Tunneling No -Undermining/Tunneling No -Circular Undermining No -Wound/Ulcer Outcome Not Healed -Ulcer Cleansing Rinsed/ Irrigated with Saline -Foul Odor after Cleansing No -Bioengineered Tissue No -Bleeding Controlled with Pressure -Treatment Response Procedure Tolerated Well -Offloading No -Debridement - Subq, 1st 20sq cm Yes Pain Scale: 0-10 Numeric Is Patient Pain Free? Yes WC - Nurse 3 - General Ulcer D/C NN Start: 05/18/22 14:04 Freq: Status: Active Protocol: Activity Type Activity Date Activity User E-sign Co-sign Detail Recorded Client Recorded Date Recorded By Document 05/18/22 15:27 [facility] [id number] 05/18/22 15:28 [facility] Document 05/25/22 15:47 [facility] [id number] 05/25/22 15:48 [facility] Document 06/01/22 13:46 AK [id number] 06/01/22 13:47 AK Document 06/08/22 14:56 DL [id number] 06/08/22 14:56 DL 05/18/22 05/25/22 06/01/22 15:27 15:47 13:46 Wound Care Nurse 3 #1 right billy -Ulcer Cleansing Rinsed/ Irrigated with Saline -Foul Odor after Cleansing No -Primary Dressing Applied NonAdherent Contact Layer, Other -Other Dressing HYDROGEL -Other Covering SUPERABSORBER SAMPLE #2 left billy cluster -Ulcer Cleansing Rinsed/ Rinsed/ Rinsed/ Irrigated with Irrigated with Irrigated with Saline Saline Saline -Foul Odor after Cleansing No No No -Negative Pressure Wound Therapy N/A -Primary Dressing Applied NonAdherent C Hydrogel ($), NonAdherent Contact Layer, NonAdherent Contact Layer Other Contact Layer -Other Dressing HYDROGEL hydrogel -Primary Dressing Covered/Secured with Dry Gauze & Dry Gauze & Roll Gauze, Roll Gauze, Secured with Secured with Tape Tape -Other Covering SUPERABSORBER DRSG PER MW RN SAMPLE BLE -Lotion applied to leg before No compression wrap -Multi-Layered Wrap Application Multi-Layer Comp - Bilat ($ ) -Tubular Bandage Single Layer Double Layer -Size of Tubigrip Used Size E Size E -Size E ($) 2 2 Treatment Response Procedure Procedure Tolerated Well Tolerated Well Pain Scale: 0-10 Numeric Is Patient Pain Free? Yes Yes Yes WC - Visit Discharge Discharge Condition Stable Stable Stable Ambulatory Status Ambulatory, Ambulatory Ambulatory, Walker Walker Transportation Private Auto Private Auto Private Auto Accompanied by Medication Reconcilliation completed & Yes provided to patient/care provider Clinical Summary of Care Provided Yes 06/08/22 14:56 Wound Care Nurse 3 #1 right billy -Ulcer Cleansing -Foul Odor after Cleansing -Primary Dressing Applied -Other Dressing -Other Covering #2 left billy cluster -Ulcer Cleansing Rinsed/ Irrigated with Saline -Foul Odor after Cleansing No -Negative Pressure Wound Therapy -Primary Dressing Applied NonAdherent Contact Layer -Other Dressing hydrogel -Primary Dressing Covered/Secured with -Other Covering BLE -Lotion applied to leg before compression wrap -Multi-Layered Wrap Application Multi-Layer Comp - Bilat ($ ) -Tubular Bandage -Size of Tubigrip Used -Size E ($) Treatment Response Pain Scale: 0-10 Numeric Is Patient Pain Free? Yes WC - Visit Discharge Discharge Condition Stable Ambulatory Status Ambulatory Transportation Private Auto Accompanied by Medication Reconcilliation completed & provided to patient/care provider Clinical Summary of Care Provided Assessment/Plan Assessment/Plan (1) Diabetic ulcer of left lower leg: CODE(S): E11.622 - Type 2 diabetes mellitus with other skin ulcer; L97.929 - Non-pressure chronic ulcer of unspecified part of left lower leg with unspecified severity (2) Edema: CODE(S): R60.9 - Edema, unspecified (3) Diabetic neuropathy: CODE(S): E11.40 - Type 2 diabetes mellitus with diabetic neuropathy, unspecified (4) Chronic diastolic congestive heart failure: CODE(S): I50.32 - Chronic diastolic (congestive) heart failure (5) Diabetes mellitus: CODE(S): E11.9 - Type 2 diabetes mellitus without complications (6) Debility: CODE(S): R53.81 - Other malaise PLAN: Plan Patient was evaluated at the wound healing center today. A subcutaneous debridement was performed without difficulty. Wound care - Collagen hydrogel topped with adaptic and covered with gauze to left anterior leg ulcer cluster, after washing ulcers with soap and water. Right anterior leg ulcer healed with improved edema. Compression - 3M 2 layer wrap lightly wrapped He had venous doppler 09/25/21 when he was admitted to TCU which was positive for DVT and he was placed on Eliquis. Vascular studies have been ordered. Encouraged him to keep his legs elevated when sitting. Avoid standing for long periods of time, but may walk as much as tolerated. Encouraged a diet in low sodium, low carbohydrates and high protein to help with wound healing and to help control his blood sugars. He will follow up in one week.
== END 2022-06-09 23:59 | disposition home or self-care (01) ==
LOC: WC 13:45
PROVIDERS: PCP Family Medicine; Visit Provider Nurse Practitioner Family
DX: E11.622 Type 2 diabetes mellitus with other skin ulcer (principal); L98.491 Non-pressure chronic ulcer of skin of other sites limited to breakdown of skin; L97.921 Non-pressure chronic ulcer of unspecified part of left lower leg limited to breakdown of skin; L97.911 Non-pressure chronic ulcer of unspecified part of right lower leg limited to breakdown of skin; I11.0 Hypertensive heart disease with heart failure; I50.32 Chronic diastolic (congestive) heart failure; E11.40 Type 2 diabetes mellitus with diabetic neuropathy, unspecified; Z87.891 Personal history of nicotine dependence; I25.10 Atherosclerotic heart disease of native coronary artery without angina pectoris; R53.81 Other malaise; Z79.84 Long term (current) use of oral hypoglycemic drugs; E78.5 Hyperlipidemia, unspecified; M48.00 Spinal stenosis, site unspecified; Z95.5 Presence of coronary angioplasty implant and graft
CPT/HCPCS: 11042; 29581; 99213; G0463

== ENCOUNTER 2022-06-23 13:00 | Outpatient (RCR) | payer MEDICARE, OTHER, SELFPAY ==
[2021-02-27 07:06] VITALS: BMI 40.4
[2022-06-10 00:43] VITALS: BP 122/61; PULSE 71; RESP 18; TEMP 35.5; BMI 38.1
[2022-06-11 13:27] VITALS: BP 115/61; PULSE 82; RESP 20; TEMP 35.8; BMI 38.1
[2022-06-16 13:23] VITALS: BP 127/63; PULSE 76; TEMP 36.1; BMI 38.1
--- NOTE | 2022-06-16 16:18 | PN.PCM_ITS ---
History of Present Illness Date of Service: 06/16/22 Chief Complaint: Left anterior leg ulcer cluster and right anterior leg ulcer with severe edema History of Wound: Patient is a 77 year old male presents with non healing ulcer on his bilateral lower legs, with severe edema. He saw his PCP about the ulcers at the beginning of March. He has been wearing compression. He has been putting Neosporin on the ulcers. He has a history of DM, PR 10/29, Stents x7 10/30, neuropathy, EF= 38%, HTN, hyperlipidemia, shingles on his face/head earlier this year. He had a DVT 09/25/21 that was diagnosed while being in TCU for debility from his spinal stenosis, he was placed on Eliquis. He does sleep in a bed at night. Wound care to right anterior leg ulcer is collagen hydrogel covered with adaptic and topped with gauze daily. 3M 2 layer wraps for compression. Today he denies fever, chills, nausea, vomiting. Progress of Wound: Right leg ulcer is healed today. His edema is improving with the 3M 2 layer wraps. Objective Data Objective Data Vital Signs: Vital Signs Temp Pulse Resp BP 97.0 F L 76 20 H 127/63 H 06/16/22 13:23 06/16/22 13:23 06/11/22 13:27 06/16/22 13:23 Weight: 251 lb Body Mass Index (BMI) 38.1 Charges/Coding Visit Charges Office Visits / Consults: [id number] OV L3 Est Physical Exam Const alert and oriented x3 General Appearance: cooperative HEENT normocephalic Resp normal respiratory effort Effort and Inspection: able to speak in complete sentences Cardio regular rate Peripheral Pulses: dorsalis pedis pulses present bilateral 1+ and diminished Extremity normal capillary refill Extremity Narrative: +3 edema bilateral lower extremities. Walks with a walker Skin Wound Narrative: Left anterior leg ulcer cluster is healed. Right anterior leg ulcer remains healed. Edema has improved with 3M 2 layer wrap compression. Neuro oriented x3 Psych mental status grossly normal Debridement Note Debridement Note No debridement was completed: No debridement was completed today Post-Debridement Measurements and Additional Note: Post-Debridement Measurements/Treatment JAG - Nurse 1 - General Ulcer Assessment Start: 06/11/22 13:27 Freq: Status: Active Protocol: [place] Activity Type Activity Date Activity User E-sign Co-sign Detail Recorded Client Recorded Date Recorded By Document 06/11/22 13:27 DL [id number] 06/11/22 13:31 DL Document 06/16/22 13:23 KR [id number] 06/16/22 13:25 KR 06/11/22 06/16/22 13:27 13:23 WC - Today's Visit Information Type of service Nurse-only Follow-up Visit Visit (Physician/AIR BATTLE MANAGER ) Arrival Mode Ambulatory, Ambulatory, Walker Walker Transfer Assistance None Patient Identification Verified (Name & Yes ) Height and Weight Body Mass Index (BMI) 38.1 38.1 BMI Classification Obese Obese Vital Signs Temperature (97.8 F-99.1 F) 96.5 F L 97.0 F L Temperature Source Temporal Temporal Pulse Rate (60-100) 82 76 Pulse Location Monitor Monitor Respiratory Rate (12-18) 20 H Respiratory rate source Observation Blood Pressure (90/60-120/80) 115/61 127/63 H Blood Pressure Mean (mm Hg) 79 84 Source Monitor Monitor Position Semi-Fowlers Blood Pressure Location Right Arm History Since Last Visit- (Skip if this is Patient's initial visit) Have you changed medications since your No No last visit? Any new allergies or adverse reactions No No Had a fall/change in ADL's that may No No increase risk of falls Signs or symptoms of abuse and/or No No neglect since last visit Have you been in the hospital since your No No last visit? Has dressing in place as prescribed Yes Yes Has compression in place as prescribed Yes Yes Has offloadiing in place as prescribed N/A N/A Experienced any changes in pain level or No No management Left Footwear Regular Shoe Right Footwear Regular Shoe Pain Scale: 0-10 Numeric Is Patient Pain Free? Yes Yes - Nurse 1 - General Ulcer Measurement Start: 06/11/22 13:27 Freq: Status: Active Protocol: Activity Type Activity Date Activity User E-sign Co-sign Detail Recorded Client Recorded Date Recorded By Document 06/11/22 13:27 SHELDON [id number] 06/11/22 13:31 DL Document 06/16/22 13:23 KR [id number] 06/16/22 13:25 KR 06/11/22 06/16/22 13:27 13:23 Wound Center Nurse 1 #1 right billy -Exudate Amt Small -Exudate Type Serosanguineous -Wound Margin Fibrotic Scar, Thickened Scar -Texture (Nina-wound Skin Appearance) No Abnormality -Moisture (Nina-wound Skin Appearance) No Abnormality -Color (Nina-wound Skin Appearance) No Abnormality -Temperature (Nina-wound Skin No Abnormality Appearance) (Pt Warm) -Tenderness on Palpation (Nina-wound No Skin Appearance) -Ulcer Cleansing Soap and Water -Foul Odor after Cleansing No #2 left billy cluster -Current Size (cm) - Length 0.1 -Current Size (cm) - Width 0.1 -Current Size (cm) - Depth 0.1 -Total Square Cm 0.01 -Exudate Amt Small None Present -Exudate Type Serosanguineous -Wound Margin Distinct, Distinct, Outline Outline Attached Attached -Granulation Amt None Present (0 %) -Necrosis Amt None Present (0 %) -Texture (Nina-wound Skin Appearance) Scarring Assessed, Scarring -Moisture (Nina-wound Skin Appearance) No Abnormality No Abnormality, Assessed -Color (Nina-wound Skin Appearance) No Abnormality No Abnormality, Assessed -Temperature (Nina-wound Skin No Abnormality No Abnormality Appearance) (Pt Warm) (Pt Warm) -Tenderness on Palpation (Nina-wound Yes No Skin Appearance) -Ulcer Cleansing Soap and Water Rinsed/ Irrigated with Saline -Foul Odor after Cleansing No No -Anesthetic Used 5% Lidocaine Gel Right Calf (cm) 38.4 Right Ankle (cm) 26 Left Calf (cm) 39.5 Left Ankle (cm) 29 WC - Nurse 2 - General Ulcer CM Notes Start: 06/11/22 13:27 Freq: Status: Active Protocol: Activity Type Activity Date Activity User E-sign Co-sign Detail Recorded Client Recorded Date Recorded By Document 06/16/22 13:39 MW [id number] 06/16/22 13:49 MW 06/16/22 13:39 Wound Center Nurse 2 -Time 13:40 -Correct Patient Yes -Correct Side, Site, Position Yes -Correct Procedure Yes -Procedure Performed No -Post Debridement (cm) - Length 0 -Post Debridement (cm) - Width 0 -Post Debridement (cm) - Depth 0 -Total Square (Post) (cm) 0 -Wound/Ulcer Outcome Healed- Epithelialized Pain Scale: 0-10 Numeric Is Patient Pain Free? Yes WC - Nurse 3 - General Ulcer D/C NN Start: 06/11/22 13:27 Freq: Status: Active Protocol: Activity Type Activity Date Activity User E-sign Co-sign Detail Recorded Client Recorded Date Recorded By Document 06/11/22 13:27 DL [id number] 06/11/22 13:31 DL Document 06/16/22 13:56 KR [id number] 06/16/22 13:56 KR 06/11/22 06/16/22 13:27 13:56 Vital Signs Temperature (97.8 F-99.1 F) 96.5 F L Temperature Source Temporal Pulse Rate (60-100) 82 Pulse Location Monitor Respiratory Rate (12-18) 20 H Respiratory rate source Observation Blood Pressure (90/60-120/80) 115/61 Blood Pressure Mean (mm Hg) 79 Source Monitor Pain Scale: 0-10 Numeric Is Patient Pain Free? Yes Yes Wound Care Nurse 3 #1 right billy -Ulcer Cleansing Not Cleansed -Foul Odor after Cleansing No -Primary Dressing Applied NonAdherent Contact Layer -Other Dressing hydrogel -Primary Dressing Covered/Secured with Dry Gauze & Roll Gauze, Secured with Tape #2 left billy cluster -Ulcer Cleansing Soap and Water -Foul Odor after Cleansing No -Primary Dressing Applied NonAdherent Contact Layer -Other Dressing hydrogel -Primary Dressing Covered/Secured with Dry Gauze & Roll Gauze, Secured with Tape Left -Multi-Layered Wrap Application Multi-Layer Multi-Layer Comp - Bilat ($ Comp - Bilat ($ ) ) Treatment Response Procedure Tolerated Well WC - Visit Discharge Discharge Condition Stable Stable Ambulatory Status Ambulatory Ambulatory, Walker Transportation Private Auto Private Auto Accompanied by Notes: Dressing applied per Jason Aburto LPN today in clinic. Assessment/Plan Assessment/Plan (1) Diabetic ulcer of left lower leg: CODE(S): E11.622 - Type 2 diabetes mellitus with other skin ulcer; L97.929 - Non-pressure chronic ulcer of unspecified part of left lower leg with unspecified severity (2) Edema: CODE(S): R60.9 - Edema, unspecified (3) Diabetic neuropathy: CODE(S): E11.40 - Type 2 diabetes mellitus with diabetic neuropathy, unspecified (4) Chronic diastolic congestive heart failure: CODE(S): I50.32 - Chronic diastolic (congestive) heart failure (5) Diabetes mellitus: CODE(S): E11.9 - Type 2 diabetes mellitus without complications (6) Debility: CODE(S): R53.81 - Other malaise PLAN: Plan Patient was evaluated at the wound healing center today. Left anterior leg ulcer cluster is healed, the right anterior leg ulcer remains healed. His edema has improved with the 3 M 2 layer wraps. Will order Juxtilyte gregory silke. Will continue the 3M 2 layer wraps until his compression sleaves come in. He had venous doppler 09/25/21 when he was admitted to TCU which was positive for DVT and he was placed on Eliquis. Vascular studies have been ordered. Encouraged him to keep his legs elevated when sitting. Avoid standing for long periods of time, but may walk as much as tolerated. Encouraged a diet in low sodium, low carbohydrates and high protein to help with wound healing and to help control his blood sugars. He will follow up on Tuesday for a nurses visit and then next week with me.
[2022-06-18 13:48] VITALS: BP 104/59; PULSE 69; RESP 18; TEMP 35.7; BMI 38.1
[2022-06-23 13:10] VITALS: BP 141/73; PULSE 68; TEMP 36.3; BMI 38.1
--- NOTE | 2022-06-23 13:40 | PCM.WC.PN ---
History of Present Illness Date of Service: 06/23/22 Chief Complaint: Left anterior leg ulcer cluster and right anterior leg ulcer with severe edema History of Wound: Patient is a 77 year old male presents with non healing ulcer on his bilateral lower legs, with severe edema. He saw his PCP about the ulcers at the beginning of March. He has been wearing compression. He has been putting Neosporin on the ulcers. He has a history of DM, [place] 10/29, Stents x7 10/30, neuropathy, EF= 38%, HTN, hyperlipidemia, shingles on his face/head earlier this year. He had a DVT 09/25/21 that was diagnosed while being in TCU for debility from his spinal stenosis, he was placed on Eliquis. He does sleep in a bed at night. Wound care to right anterior leg ulcer is collagen hydrogel covered with adaptic and topped with gauze daily. 3M 2 layer wraps for compression. Today he denies fever, chills, nausea, vomiting. Progress of Wound: Right leg ulcer is healed today. His edema has improved with the 3M 2 layer wraps, will apply juxta-lite compression stockings bilaterally for edema control. Objective Data Objective Data Vital Signs: Vital Signs Temp Pulse Resp BP O2 Del Method 97.3 F L 68 18 141/73 H Room Air 06/23/22 13:10 06/23/22 13:10 06/18/22 13:48 06/23/22 13:10 06/18/22 13:48 Oxygen Delivery Method Room Air Weight: 251 lb Body Mass Index (BMI) 38.1 Charges/Coding Visit Charges Office Visits / Consults: [id number] OV L3 Est Physical Exam Const alert and oriented x3 General Appearance: cooperative HEENT normocephalic Resp normal respiratory effort and clear to auscultation bilaterally Effort and Inspection: able to speak in complete sentences Cardio regular rate and regular rhythm Peripheral Pulses: dorsalis pedis pulses present bilateral 1+ and diminished Extremity normal capillary refill Extremity Narrative: Edema much improved. +1-+2 bilaterally. Walks with a walker Skin Wound Narrative: Ulcers remain healed. Neuro oriented x3 Psych mental status grossly normal Debridement Note Debridement Note No debridement was completed: No debridement was completed today Post-Debridement Measurements and Additional Note: Post-Debridement Measurements/Treatment WC - Nurse 1 - General Ulcer Assessment Start: 06/11/22 13:27 Freq: Status: Active Protocol: WC.LOWEXT Activity Type Activity Date Activity User E-sign Co-sign Detail Recorded Client Recorded Date Recorded By Document 06/11/22 13:27 DL [id number] 06/11/22 13:31 DL Document 06/16/22 13:23 KR [id number] 06/16/22 13:25 KR Document 06/18/22 13:48 MW [id number] 06/18/22 13:50 MW Document 06/23/22 13:10 KR [id number] 06/23/22 13:11 KR 06/11/22 06/16/22 06/18/22 13:27 13:23 13:48 WC - Today's Visit Information Type of service Nurse-only Follow-up Visit Nurse-only Visit (Physician/INDUCTION MACHINE OPERATOR Visit ) Arrival Mode Ambulatory, Ambulatory, Ambulatory, Walker Walker Walker Transfer Assistance None None Accompanied by self Patient Identification Verified (Name & Yes Yes ) Patient Requires Transmission-Based No Precautions Safety Precautions NA Height and Weight Body Mass Index (BMI) 38.1 38.1 38.1 BMI Classification Obese Obese Obese Vital Signs Temperature (97.8 F-99.1 F) 96.5 F L 97.0 F L 96.3 F L Temperature Source Temporal Temporal Temporal Pulse Rate (60-100) 82 76 69 Pulse Location Monitor Monitor Monitor Respiratory Rate (12-18) 20 H 18 Respiratory rate source Observation Observation Oxygen Delivery Method Room Air Blood Pressure (90/60-120/80) 115/61 127/63 H 104/59 L Blood Pressure Mean (mm Hg) 79 84 74 Source Monitor Monitor Monitor Position Semi-Fowlers Sitting Blood Pressure Location Right Arm Left Arm History Since Last Visit- (Skip if this is Patient's initial visit) Have you changed medications since your No No No last visit? Any new allergies or adverse reactions No No No Had a fall/change in ADL's that may No No No increase risk of falls Signs or symptoms of abuse and/or No No No neglect since last visit Have you been in the hospital since your No No No last visit? Has dressing in place as prescribed Yes Yes Yes Has compression in place as prescribed Yes Yes Yes Has offloadiing in place as prescribed N/A N/A N/A Experienced any changes in pain level or No No No management Left Footwear Regular Shoe Regular Shoe Right Footwear Regular Shoe Regular Shoe Pain Scale: 0-10 Numeric Is Patient Pain Free? Yes Yes Yes 06/23/22 13:10 WC - Today's Visit Information Type of service Follow-up Visit (Physician/INDUCTION MACHINE OPERATOR ) Arrival Mode Ambulatory, Walker Transfer Assistance Accompanied by Patient Identification Verified (Name & Yes ) Patient Requires Transmission-Based Precautions Safety Precautions Height and Weight Body Mass Index (BMI) 38.1 BMI Classification Obese Vital Signs Temperature (97.8 F-99.1 F) 97.3 F L Temperature Source Temporal Pulse Rate (60-100) 68 Pulse Location Monitor Respiratory Rate (12-18) Respiratory rate source Oxygen Delivery Method Blood Pressure (90/60-120/80) 141/73 H Blood Pressure Mean (mm Hg) 95 Source Monitor Position Sitting Blood Pressure Location Right Arm History Since Last Visit- (Skip if this is Patient's initial visit) Have you changed medications since your last visit? Any new allergies or adverse reactions Had a fall/change in ADL's that may increase risk of falls Signs or symptoms of abuse and/or neglect since last visit Have you been in the hospital since your last visit? Has dressing in place as prescribed Has compression in place as prescribed Has offloadiing in place as prescribed Experienced any changes in pain level or management Left Footwear Regular Shoe Right Footwear Regular Shoe Pain Scale: 0-10 Numeric Is Patient Pain Free? Yes - Nurse 1 - General Ulcer Measurement Start: 06/11/22 13:27 Freq: Status: Active Protocol: Activity Type Activity Date Activity User E-sign Co-sign Detail Recorded Client Recorded Date Recorded By Document 06/11/22 13:27 DL [id number] 06/11/22 13:31 DL Document 06/16/22 13:23 KR [id number] 06/16/22 13:25 KR Document 06/18/22 13:48 MW [id number] 06/18/22 13:50 MW Document 06/23/22 13:10 KR [id number] 06/23/22 13:11 KR 06/11/22 06/16/22 06/18/22 13:27 13:23 13:48 Wound Center Nurse 1 #2 left billy cluster -Current Size (cm) - Length 0.1 -Current Size (cm) - Width 0.1 -Current Size (cm) - Depth 0.1 -Total Square Cm 0.01 -Exudate Amt Small None Present -Exudate Type Serosanguineous -Wound Margin Distinct, Distinct, Outline Outline Attached Attached -Granulation Amt None Present (0 %) -Necrosis Amt None Present (0 %) -Texture (Nina-wound Skin Appearance) Scarring Assessed, Scarring -Moisture (Nina-wound Skin Appearance) No Abnormality No Abnormality, Assessed -Color (Nina-wound Skin Appearance) No Abnormality No Abnormality, Assessed -Temperature (Nina-wound Skin No Abnormality No Abnormality Appearance) (Pt Warm) (Pt Warm) -Tenderness on Palpation (Nina-wound Yes No Skin Appearance) -Ulcer Cleansing Soap and Water Rinsed/ Irrigated with Saline -Foul Odor after Cleansing No No -Anesthetic Used 5% Lidocaine Gel #1 right billy -Exudate Amt Small -Exudate Type Serosanguineous -Wound Margin Fibrotic Scar, Thickened Scar -Texture (Nina-wound Skin Appearance) No Abnormality -Moisture (Nina-wound Skin Appearance) No Abnormality -Color (Nina-wound Skin Appearance) No Abnormality -Temperature (Nina-wound Skin No Abnormality Appearance) (Pt Warm) -Tenderness on Palpation (Nina-wound No Skin Appearance) -Ulcer Cleansing Soap and Water -Foul Odor after Cleansing No Lower Limb Edema Present Yes Right Calf (cm) 38.4 34.0 Right Ankle (cm) 26 26.0 Left Calf (cm) 39.5 35.2 Left Ankle (cm) 29 28.0 06/23/22 13:10 Wound Center Nurse 1 #2 left billy cluster -Current Size (cm) - Length -Current Size (cm) - Width -Current Size (cm) - Depth -Total Square Cm -Exudate Amt -Exudate Type -Wound Margin -Granulation Amt -Necrosis Amt -Texture (Nina-wound Skin Appearance) -Moisture (Nina-wound Skin Appearance) -Color (Nina-wound Skin Appearance) -Temperature (Nina-wound Skin Appearance) -Tenderness on Palpation (Nina-wound Skin Appearance) -Ulcer Cleansing -Foul Odor after Cleansing -Anesthetic Used #1 right billy -Exudate Amt -Exudate Type -Wound Margin -Texture (Nina-wound Skin Appearance) -Moisture (Nina-wound Skin Appearance) -Color (Nina-wound Skin Appearance) -Temperature (Nina-wound Skin Appearance) -Tenderness on Palpation (Nina-wound Skin Appearance) -Ulcer Cleansing -Foul Odor after Cleansing Lower Limb Edema Present Right Calf (cm) 39.8 Right Ankle (cm) 27.4 Left Calf (cm) 39.2 Left Ankle (cm) 28.3 WC - Nurse 2 - General Ulcer CM Notes Start: 06/11/22 13:27 Freq: Status: Active Protocol: Activity Type Activity Date Activity User E-sign Co-sign Detail Recorded Client Recorded Date Recorded By Document 06/16/22 13:39 MW [id number] 06/16/22 13:49 MW Document 06/23/22 13:21 JF [id number] 06/23/22 13:22 JF 06/16/22 06/23/22 13:39 13:21 Wound Center Nurse 2 #2 left billy cluster -Time 13:40 -Correct Patient Yes No -Correct Side, Site, Position Yes No -Correct Procedure Yes No -Procedure Performed No No -Post Debridement (cm) - Length 0 0 -Post Debridement (cm) - Width 0 0 -Post Debridement (cm) - Depth 0 0 -Total Square (Post) (cm) 0 0 -Area of Debridement (cm) - Length 0 -Area of Debridement (cm) - Width 0 -Total Square (Area) (cm) 0 -Wound/Ulcer Outcome Healed- Healed- Epithelialized Epithelialized Pain Scale: 0-10 Numeric Is Patient Pain Free? Yes Yes WC - Nurse 3 - General Ulcer D/C NN Start: 06/11/22 13:27 Freq: Status: Active Protocol: Activity Type Activity Date Activity User E-sign Co-sign Detail Recorded Client Recorded Date Recorded By Document 06/11/22 13:27 DL [id number] 06/11/22 13:31 DL Document 06/16/22 13:56 KR [id number] 06/16/22 13:56 KR Document 06/18/22 13:48 MW [id number] 06/18/22 13:50 MW Document 06/23/22 13:30 BMF [id number] 06/23/22 13:30 BMF 06/11/22 06/16/22 06/18/22 13:27 13:56 13:48 Vital Signs Temperature (97.8 F-99.1 F) 96.5 F L 96.3 F L Temperature Source Temporal Temporal Pulse Rate (60-100) 82 69 Pulse Location Monitor Monitor Respiratory Rate (12-18) 20 H 18 Respiratory rate source Observation Observation Oxygen Delivery Method Room Air Blood Pressure (90/60-120/80) 115/61 104/59 L Blood Pressure Mean (mm Hg) 79 74 Source Monitor Monitor Position Sitting Blood Pressure Location Left Arm Pain Scale: 0-10 Numeric Is Patient Pain Free? Yes Yes Yes Wound Care Nurse 3 #2 left billy cluster -Ulcer Cleansing Soap and Water Soap and Water -Foul Odor after Cleansing No -Primary Dressing Applied NonAdherent Contact Layer -Other Dressing hydrogel -Primary Dressing Covered/Secured with Dry Gauze & Roll Gauze, Secured with Tape #1 right billy -Ulcer Cleansing Not Cleansed -Foul Odor after Cleansing No -Primary Dressing Applied NonAdherent Contact Layer -Other Dressing hydrogel -Primary Dressing Covered/Secured with Dry Gauze & Roll Gauze, Secured with Tape Bilateral LE -Lotion applied to leg before Yes compression wrap -Multi-Layered Wrap Application Multi-Layer Comp - Bilat ($ ) -Other Left -Multi-Layered Wrap Application Multi-Layer Multi-Layer Comp - Bilat ($ Comp - Bilat ($ ) ) Treatment Response Procedure Procedure Tolerated Well Tolerated Well WC - Visit Discharge Discharge Condition Stable Stable Stable Ambulatory Status Ambulatory Ambulatory, Ambulatory, Walker Walker Transportation Private Auto Private Auto Private Auto Accompanied by self Medication Reconcilliation completed & No provided to patient/care provider Clinical Summary of Care Provided Yes Notes: Dressing applied per Jason Aburto LPN today in clinic. 06/23/22 13:30 Vital Signs Temperature (97.8 F-99.1 F) Temperature Source Pulse Rate (60-100) Pulse Location Respiratory Rate (12-18) Respiratory rate source Oxygen Delivery Method Blood Pressure (90/60-120/80) Blood Pressure Mean (mm Hg) Source Position Blood Pressure Location Pain Scale: 0-10 Numeric Is Patient Pain Free? Yes Wound Care Nurse 3 #2 left billy cluster -Ulcer Cleansing -Foul Odor after Cleansing -Primary Dressing Applied -Other Dressing -Primary Dressing Covered/Secured with #1 right billy -Ulcer Cleansing -Foul Odor after Cleansing -Primary Dressing Applied -Other Dressing -Primary Dressing Covered/Secured with Bilateral LE -Lotion applied to leg before compression wrap -Multi-Layered Wrap Application -Other EDUCATED ON [place] APPLICATION Left -Multi-Layered Wrap Application Treatment Response Procedure Tolerated Well WC - Visit Discharge Discharge Condition Stable Ambulatory Status Ambulatory Transportation Private Auto Accompanied by Medication Reconcilliation completed & provided to patient/care provider Clinical Summary of Care Provided Notes: Assessment/Plan Assessment/Plan (1) Diabetic ulcer of left lower leg: CODE(S): E11.622 - Type 2 diabetes mellitus with other skin ulcer; L97.929 - Non-pressure chronic ulcer of unspecified part of left lower leg with unspecified severity (2) Edema: CODE(S): R60.9 - Edema, unspecified (3) Diabetic neuropathy: CODE(S): E11.40 - Type 2 diabetes mellitus with diabetic neuropathy, unspecified (4) Chronic diastolic congestive heart failure: CODE(S): I50.32 - Chronic diastolic (congestive) heart failure (5) Diabetes mellitus: CODE(S): E11.9 - Type 2 diabetes mellitus without complications (6) Debility: CODE(S): R53.81 - Other malaise PLAN: Plan Patient was evaluated at the wound healing center today. Left anterior leg ulcer cluster is healed, the right anterior leg ulcer remains healed. His edema has improved with the 3 M 2 layer wraps. Will apply Juxtilyte compression today. He had venous doppler 09/25/21 when he was admitted to TCU which was positive for DVT and he was placed on Eliquis. Vascular studies have been ordered. Encouraged him to keep his legs elevated when sitting. Avoid standing for long periods of time, but may walk as much as tolerated. Encouraged a diet in low sodium, low carbohydrates and high protein to help with wound healing and to help control his blood sugars. Will phone him with his vascular study results. Follow up as needed.
== END 2022-06-23 15:56 | disposition home or self-care (01) ==
LOC: WC 13:00
PROVIDERS: PCP Family Medicine; Visit Provider Nurse Practitioner Family
DX: Z09 Encounter for follow-up examination after completed treatment for conditions other than malignant neoplasm (principal); I11.0 Hypertensive heart disease with heart failure; I50.32 Chronic diastolic (congestive) heart failure; E11.40 Type 2 diabetes mellitus with diabetic neuropathy, unspecified; E78.5 Hyperlipidemia, unspecified; R53.81 Other malaise; R60.0 Localized edema; Z86.718 Personal history of other venous thrombosis and embolism
CPT/HCPCS: 29581; 99212; 99213; G0463

== ENCOUNTER → 2022-07-28 | Outpatient (CLI) | payer MEDICARE, OTHER, SELFPAY ==
[2021-02-27 07:06] VITALS: BMI 40.4
--- NOTE | 2022-07-28 13:01 | ART_ITS ---
Reason For Study: PVD Procedure A bilateral lower extremity continuous wave Doppler with analog waveform analysis,segmental pressures,and ankle brachial indexes without exercise. Left Segmental Pressures Left brachial= 124mmHg. Left posterior tibial artery = 162mmHg. Left dorsalis pedis artery = 167mmHg. Left digit = 118 mmHg. The left posterior tibial artery waveforms are triphasic. The left dorsalis pedis waveforms are triphasic. Right Segmental Pressures Right posterior tibial artery = 175mmHg. Right dorsalis pedis artery = 172mmHg. Right digit = 114 mmHg. The right posterior tibial artery waveforms are triphasic. The right dorsalis pedis waveforms are triphasic. Indices The right ankle brachial index by the posterior tibial artery is 1.41. The right ankle brachial index by the dorsalis pedis is 1.39. The right digital-brachial index is 0.92. The left ankle brachial index by the posterior tibial artery is 1.31. The left ankle brachial index by the dorsalis pedis is 1.35. The left digital-brachial index is 0.95. VL/Lower Ext Art Exam w/o Exercis Interpretation Summary Triphasic Doppler waveforms are noted at ankle level bilaterally. Pulse-volume recordings appear satisfactory at all levels bilaterally. Resting ankle-brachial indices are supr a-normal on the right. Resting ankle-brachial indices are normal on the left. Digital-brachial indices are normal bilaterally. There is evidence of arterial calcification at ankle level on the right. There is no evidence of significant arterial occlusive disease in the lower extremities bilaterally. Ordering Physician: Erica Wellington Referring Physician: ERICA WELLINGTON QUOTATION CHECKER-C Performed By: Reginaldo Mckinley RVT
--- NOTE | 2022-07-28 13:01 | VDLE_ITS ---
Reason For Study: PVD RIGHT LEFT CFV is compressible, spontaneous, phasic, CFV is compressible, spontaneous, phasic, competent and demonstrates normal competent, and demonstrates normal augmentation. augmentation. FV is compressible, spontaneous, phasic, FV is compressible, spontaneous, phasic, competent and demonstrates normal competent and demonstrates normal augmentation. augmentation. POP V is compressible, spontaneous, phasic, POP V is compressible, spontaneous, phasic, competent and demonstrates normal competent and demonstrates normal augmentation. augmentation. T/P Trunk is compressible. T/P Trunk is compressible. PTV is compressible. PTV is compressible. RT PerV is compressible. LT PerV is compressible. SFJ is competent and measures 0.66 x 0.68 cm. SFJ is competent and measures 0.74 x 0.78 cm. GSV proximal thigh measures 0.49 x 0.53 cm. GSV proximal thigh measures 0.70 x 0.66 cm. GSV at knee measures 0.42 x 0.43 cm. GSV at knee measures 0.49 x 0.59 cm. GSV is competent throughout. GSV is competent throughout. SSV proximal calf is competent and measures SSV proximal calf is competent and measures 0.34 x 0.39 cm. 0.72 x 0.75 cm. RT Proximal SSV Partially compressible with LT Proximal SSV Partially compressible with hyperechoic filling. hyperechoic filling. Procedure Exam performed in department. This is a venous duplex using B-mode, color flow and spectral Doppler. The exam was diagnostic. A preliminary report was called and/or faxed to Sri Babb's office. VL/Venous Duplex US - Eduard Extrem Interpretation Summary Deep veins of the lower extremities are bilaterally patent and compressible seg mentally. There is no evidence of deep vein thrombosis on either side. Valvular competence appears in tact within the proximal deep venous systems bilaterally. The great saphenous veins appear bila terally patent and compressible segmentally. Sapheno-femoral junctions are bilaterally competent . Valvular competence appears to be intact segmentally within the great saphenous veins bilaterally. Chronic venous changes are noted in the proximal small saphenous veins bilaterally, which are partially compressible and demonstrate bright intraluminal echogenicity. Small saphenous veins are competent bilaterally. Ordering Physician: Erica Babb Referring Physician: Erica Babb Performed By: Reginaldo Mckinley RVT
== END | disposition home or self-care (01) ==
LOC: CVS 12:51
PROVIDERS: PCP Family Medicine; Referring Provider Nurse Practitioner Family; Visit Provider Nurse Practitioner Family
DX: I73.9 Peripheral vascular disease, unspecified (principal); L97.929 Non-pressure chronic ulcer of unspecified part of left lower leg with unspecified severity; R60.0 Localized edema
CPT/HCPCS: 93923; 93970

== ENCOUNTER 2022-08-09 13:45 | Outpatient (RCR) | payer MEDICARE, OTHER, SELFPAY ==
[2021-02-27 07:06] VITALS: BMI 40.4
[2022-07-26 10:13] VITALS: BP 120/67; PULSE 86; TEMP 36.4
--- NOTE | 2022-07-26 11:00 | HP.PCM_ITS ---
History of Present Illness Date of Service: 07/26/22 Chief Complaint: Left anterior leg ulcer cluster and right anterior leg ulcer with severe edema History of Wound: Patient is a 77 year old male presents with non healing ulcer on his bilateral lower legs, with severe edema. He saw his PCP about the ulcers at the beginning of March. He has been wearing compression. He has been putting Neosporin on the ulcers. He has a history of DM, ID 10/29, Stents x7 10/30, neuropathy, EF= 38%, HTN, hyperlipidemia, shingles on his face/head earlier this year. He had a DVT 09/25/21 that was diagnosed while being in TCU for debility from his spinal stenosis, he was placed on Eliquis. He does sleep in a bed at night. His ulcers were healed 06/23/22 but they have reoccurred. He has an ulcer on both anterior legs. His edema is much worse. Wound care to right and left anterior leg ulcers are collagen hydrogel covered with adaptic and topped with gauze daily. 3M 2 layer wraps for compression. Today he denies fever, chills, nausea, vomiting. Progress of Wound: Right and left anterior leg ulcers have reoccurred. His edema is much worse, +3 edema, he hasn't been wearing his compression. [facility] Medical History Atherosclerotic heart disease of [place] coronary artery without angina pectoris DM type 2 (diabetes mellitus, type 2) Essential hypertension Hyperlipidemia NSTEMI (non-ST elevated myocardial infarction) Obesity Pericardial effusion Presence of stent in coronary artery (10/20/19) Shingles Spinal stenosis Home Medications folic acid 400 mcg tablet 0.4 mg PO DAILY supplement 10/19/19 [History Last Taken 09/08/21] metformin 1,000 mg tablet,extended release 24hr 1,000 mg PO DAILY diabetes 10/19/19 [History Last Taken 09/11/21 09:00] tamsulosin 0.4 mg capsule 0.4 mg PO QHS BPH 07/02/20 [History Last Taken 09/10/21 21:00] dulaglutide 1.5 mg/0.5 mL subcutaneous pen injector (Trulicity) 0.75 mg subcut TU diabetes 05/15/21 [History Last Taken 09/08/21 08:00] pravastatin 80 mg tablet 80 mg PO DAILY cholesterol 05/15/21 [History Last Taken 09/10/21 21:00] acetaminophen 500 mg tablet 1,000 mg PO Q6H PRN PRN Pain Score 1-3 #0 tabs 09/30/21 [Rx Last Taken Unknown] docusate sodium 100 mg capsule (Colace) 100 mg PO BID 10/29/21 [History Last Taken Unknown] krill oil 500 mg capsule 500 mg PO DAILY 10/29/21 [History Last Taken Unknown] mirabegron 25 mg tablet,extended release 24 hr 25 mg PO DAILY 10/29/21 [History Last Taken Unknown] potassium chloride 20 mEq tablet,extended release 20 meq PO DAILY 10/29/21 [History Last Taken Unknown] baclofen 10 mg tablet 10 mg PO TID PRN Muscle pain/spasm #90 tabs 11/02/21 [Rx Last Taken Unknown] gabapentin 600 mg tablet 600 mg PO TID #90 tabs 11/02/21 [Rx Last Taken Unknown] hydrocodone-acetaminophen 5-325mg 5mg-325mg 1 tab PO TID 12/15/21 [History Last Taken Unknown] aspirin 81 mg tablet,delayed release (Adult Low Dose Aspirin) 81 mg PO DAILY 01/05/22 [History Last Taken Unknown] clopidogrel 75 mg tablet See Rx Instructions .Route .COMPLEX #90 TABLETS 01/27/22 [Rx Last Taken Unknown] cholecalciferol (vitamin D3) 50 mcg (2,000 unit) capsule 50 mcg PO DAILY 01/28/22 [History Last Taken Unknown] insulin glargine 100 unit/mL (3 mL) subcutaneous pen (Basaglar KwikPen U-100 Insulin) 26 unit subcut BID diabetes 05/13/22 [History Last Taken Unknown] dulaglutide 0.75 mg/0.5 mL subcutaneous pen injector (Trulicity) 0.75 mg subcut QWEEK 05/25/22 [History Last Taken Unknown] mupirocin calcium 2 % topical cream 1 applic topical BID 05/25/22 [History Last Taken Unknown] naloxone 0.4 mg/0.4 mL injection, auto-injector 4 mg 05/25/22 [History Last Taken Unknown] oxybutynin 3.9 mg/24 hour transdermal 4 day patch mg 05/25/22 [History Last Taken Unknown] valacyclovir 1 gram tablet 1,000 mg PO BID 05/25/22 [History Last Taken Unknown] furosemide 40 mg tablet 40 mg PO .COMPLEX #270 tabs 05/31/22 [Rx Last Taken Unknown] carvedilol 3.125 mg tablet 3.125 mg PO BIDCM 30 days #180 tabs 06/07/22 [Rx Last Taken Unknown] Allergy/AdvReac Type Severity Reaction Status Date / Time lisinopril AdvReac cough Verified 05/13/22 16:02 Surgical History H/O knee surgery History of back surgery History of left heart catheterization (10/20/19) Presence of coronary angioplasty implant and graft (~10/20/19) Social History household members: spouse Smoking Status: Former smoker how long ago did patient quit smokin+ years used cigars ocationally alcohol intake: current alcohol intake frequency: a few times a month Alcohol type: beer substance use type: does not use caffeine: No ROS Constitutional Constitutional: Denies chills, fatigue, fever(s) or frequent falls Eyes Eyes: Reports none ENT HEENT: Reports none Cardiovascular Cardiovascular: Reports leg edema; Denies chest pain or dyspnea Respiratory/Chest Respiratory/Chest: Denies cough or dyspnea Gastrointestinal Gastrointestinal: Reports none Musculoskeletal Musculoskeletal: Reports abnormal gait, joint pain and joint stiffness Integumentary Integumentary: Reports skin ulcer and skin swelling Neurologic Neurologic: Reports numbness; Denies dizziness or frequent falls Psychiatric Psychiatric: Reports none Endocrine Endocrinology: Reports none Vital Signs Vital Signs Vital Signs: 07/26/22 10:13 Temperature 97.5 F L Temperature Source Temporal Pulse Rate 86 Blood Pressure 120/67 Blood Pressure Mean 84 Blood Pressure Source Monitor Blood Pressure Position Semi-Fowlers Blood Pressure Location Right Arm Physical Exam Const alert, oriented x3 and no apparent distress General Appearance: cooperative HEENT normocephalic Neck full ROM Resp normal respiratory effort, normal air movement and clear to auscultation bilaterally Effort and Inspection: able to speak in complete sentences Cardio regular rate and regular rhythm Peripheral Pulses: dorsalis pedis pulses present bilateral 1+ and diminished GI soft to palpation and non-tender Extremity normal capillary refill Extremity Narrative: +4 edema bilateral lower extremities. Walks with a walker Skin Wound Narrative: Left anterior leg ulcer cluster and right anterior leg ulcer, the base is pink. Significant amount of edema present. Neuro oriented x3 Psych mental status grossly normal Debridement Note Debridement Note Wound debrided: Anterior leg cluster Laterality: Right Wound Grade/Stage: Stage 2 Type of Debridement: Excisional debridement Anesthesia Used: 5% Lidocaine Gel Depth: Down to and including healthy tissue and in the subcutaneous layer Percentage of wound debrided: 100 Instrument Used: 3mm curette Tissue Removed: Devitalized tissue and slough Severity: Fat Layer Exposed Amount of bleeding with debridement: Mild Bleeding Controlled with: Pressure Patient tolerated procedure: Patient tolerated procedure well Post-Debridement Measurements and Additional Note: Post-Debridement Measurements/Treatment - Nurse 1 - General Ulcer Assessment Start: 07/26/22 10:08 Freq: Status: Active Protocol: [place] Activity Type Activity Date Activity User E-sign Co-sign Detail Recorded Client Recorded Date Recorded By Document 07/26/22 10:13 [id number] 07/26/22 10:19 CHEYENNE 07/26/22 10:13 - Today's Visit Information Type of service Initial Visit Arrival Mode Ambulatory, Walker Patient Identification Verified (Name & Yes ) Vital Signs Temperature (97.8 F-99.1 F) 97.5 F L Temperature Source Temporal Pulse Rate (60-100) 86 Pulse Location Monitor Blood Pressure (90/60-120/80) 120/67 Blood Pressure Mean 84 Source Monitor Position Semi-Fowlers Blood Pressure Location Right Arm History Since Last Visit- (Skip if this is Patient's initial visit) Have you changed medications since your No last visit? Any new allergies or adverse reactions No Had a fall/change in ADL's that may No increase risk of falls Signs or symptoms of abuse and/or No neglect since last visit Have you been in the hospital since your No last visit? Has dressing in place as prescribed No Has compression in place as prescribed N/A Has offloadiing in place as prescribed N/A Experienced any changes in pain level or No management Left Footwear Regular Shoe Right Footwear Regular Shoe Pain Scale: 0-10 Numeric Is Patient Pain Free? Yes - Nurse 1 - General Ulcer Measurement Start: 07/26/22 10:08 Freq: Status: Active Protocol: Activity Type Activity Date Activity User E-sign Co-sign Detail Recorded Client Recorded Date Recorded By Document 07/26/22 10:13 CHEYENNE [id number] 07/26/22 10:19 CHEYENNE 07/26/22 10:13 Wound Center Nurse 1 #4 Left Jones cluster -Current Size (cm) - Length 4 -Current Size (cm) - Width 4 -Current Size (cm) - Depth 0.1 -Total Square Cm 16 -Exudate Amt Medium -Exudate Type Serosanguineous -Wound Margin Distinct, Outline Attached -Granulation Amt Medium (34-66%) -Granulation Quality Red -Necrosis Amt Small (1-33%) -Necrotic Tissue Type Adherent Slough -Texture (Nina-wound Skin Appearance) Assessed, Scarring -Color (Nina-wound Skin Appearance) No Abnormality, Assessed -Tenderness on Palpation (Nina-wound No Skin Appearance) -Ulcer Cleansing Rinsed/ Irrigated with Saline -Foul Odor after Cleansing No -Anesthetic Used 5% Lidocaine Gel #3 Right Jones cluster -Current Size (cm) - Length 3 -Current Size (cm) - Width 6.5 -Current Size (cm) - Depth 0.1 -Total Square Cm 19.5 -Exudate Amt Medium -Exudate Type Serosanguineous -Wound Margin Distinct, Outline Attached -Granulation Amt Large (67-100%) -Granulation Quality Red -Necrosis Amt None Present (0 %) -Texture (Nina-wound Skin Appearance) Assessed, Scarring -Moisture (Nina-wound Skin Appearance) No Abnormality, Assessed -Color (Nina-wound Skin Appearance) Assessed,Not Assessed -Temperature (Nina-wound Skin No Abnormality Appearance) (Pt Warm) -Tenderness on Palpation (Nina-wound No Skin Appearance) -Ulcer Cleansing Rinsed/ Irrigated with Saline -Foul Odor after Cleansing No -Anesthetic Used 5% Lidocaine Gel Right Calf (cm) 39.5 Right Ankle (cm) 25.2 Left Calf (cm) 38 Left Ankle (cm) 28 WC - Nurse 2 - General Ulcer CM Notes Start: 07/26/22 10:08 Freq: Status: Active Protocol: Activity Type Activity Date Activity User E-sign Co-sign Detail Recorded Client Recorded Date Recorded By Document 07/26/22 10:35 RONALDO [id number] 07/26/22 10:43 JF 07/26/22 10:35 Wound Center Nurse 2 #4 Left Jones cluster -Time 10:36 -Correct Patient Yes -Correct Side, Site, Position Yes -Correct Procedure Yes -Procedure Performed Yes -Type of Procedure Debridement -Clinical Debridement Subcutaneous -Tissue Removed Subcutaneous -Post Debridement (cm) - Length 3.4 -Post Debridement (cm) - Width 4.3 -Post Debridement (cm) - Depth 0.1 -Total Square (Post) (cm) 14.62 -Area of Debridement (cm) - Length 3.4 -Area of Debridement (cm) - Width 4.3 -Total Square (Area) (cm) 14.62 -Tunneling No -Undermining/Tunneling No -Circular Undermining No -Wound/Ulcer Outcome Not Healed -Ulcer Cleansing Rinsed/ Irrigated with Saline -Foul Odor after Cleansing No -Bioengineered Tissue No -Bleeding Controlled with Pressure -Treatment Response Procedure Tolerated Well -Offloading No -Debridement - Subq, 1st 20sq cm No #3 Right Jones cluster -Time 10:36 -Correct Patient Yes -Correct Side, Site, Position Yes -Correct Procedure Yes -Procedure Performed Yes -Type of Procedure Debridement -Clinical Debridement Subcutaneous -Tissue Removed Subcutaneous -Post Debridement (cm) - Length 5.0 -Post Debridement (cm) - Width 5.9 -Post Debridement (cm) - Depth 0.1 -Total Square (Post) (cm) 29.50 -Area of Debridement (cm) - Length 5.0 -Area of Debridement (cm) - Width 5.9 -Total Square (Area) (cm) 29.50 -Tunneling No -Undermining/Tunneling No -Circular Undermining No -Wound/Ulcer Outcome Not Healed -Ulcer Cleansing Rinsed/ Irrigated with Saline -Foul Odor after Cleansing No -Bioengineered Tissue No -Bleeding Controlled with Pressure -Treatment Response Procedure Tolerated Well -Offloading No -Debridement - Subq, 1st 20sq cm Yes -Debridement, SubQ, ea addt'l 20sq cm 2 or part thereof Pain Scale: 0-10 Numeric Is Patient Pain Free? Yes WC - Nurse 3 - General Ulcer D/C NN Start: 07/26/22 10:08 Freq: Status: Active Protocol: Activity Type Activity Date Activity User E-sign Co-sign Detail Recorded Client Recorded Date Recorded By Document 07/26/22 10:54 CHEYENNE [id number] 07/26/22 10:55 CHE[place]NE 07/26/22 10:54 Wound Care Nurse 3 #4 Left Jones cluster -Ulcer Cleansing Rinsed/ Irrigated with Saline -Primary Dressing Applied C Hydrogel ($) -Primary Dressing Covered/Secured with Dry Gauze, Secured with Tape #3 Right Jones cluster -Ulcer Cleansing Rinsed/ Irrigated with Saline -Primary Dressing Applied C Hydrogel ($) -Primary Dressing Covered/Secured with Dry Gauze, Secured with Tape Left -Multi-Layered Wrap Application Multi-Layer Comp - Bilat ($ ) Pain Scale: 0-10 Numeric Is Patient Pain Free? Yes WC - Visit Discharge Discharge Condition Stable Ambulatory Status Ambulatory, Walker Transportation Private Auto Accompanied by Additional Wound Wound debrided: Anterior leg cluster Laterality: Left Wound Grade/Stage: Stage 2 Type of Debridement: Excisional debridement Anesthesia Used: 5% Lidocaine Gel Depth: Down to and including healthy tissue and in the subcutaneous layer Percentage of wound debrided: 100 Instrument Used: 3mm curette Tissue Removed: Devitalized tissue and slough Severity: Fat Layer Exposed Amount of bleeding with debridement: Mild Bleeding Controlled with: Compression and gauze Patient tolerated procedure: Patient tolerated procedure well Charges/Coding Visit Charges Office Visits / Consults: 62273 OV L3 Est (25 modifier) Procedures Integumentary [id number]: [id number] Raquel subq tissue 20 sq cm/< Assessment/Plan Assessment/Plan (1) Diabetic ulcer of right lower leg: CODE(S): E11.622 - Type 2 diabetes mellitus with other skin ulcer; L97.919 - Non-pressure chronic ulcer of unspecified part of right lower leg with unspecified severity (2) Diabetic ulcer of left lower leg: CODE(S): E11.622 - Type 2 diabetes mellitus with other skin ulcer; L97.929 - Non-pressure chronic ulcer of unspecified part of left lower leg with unspecified severity (3) Edema: CODE(S): R60.9 - Edema, unspecified (4) Diabetic neuropathy: CODE(S): E11.40 - Type 2 diabetes mellitus with diabetic neuropathy, unspecified (5) Diabetes mellitus: CODE(S): E11.9 - Type 2 diabetes mellitus without complications PLAN: Plan Patient was evaluated at the wound healing center today. Left anterior leg ulcer cluster and Right anterior leg ulcer cluster has reopened. His edema is +3. He hasn't been consistently wearing his compression. Wound care - Collagen hydrogel covered with adaptic and topped with gauze to both anterior leg ulcers. Compression will be 3M 2 layer wraps bilaterally. He will remove them for his vascular studies and then come into the wound center after them to have them reapplied. He had venous doppler 09/25/21 when he was admitted to TCU which was positive for DVT and he was placed on Eliquis. Vascular studies have been ordered. Encouraged him to keep his legs elevated when sitting. Avoid standing for long periods of time, but may walk as much as tolerated. Encouraged a diet in low sodium, low carbohydrates and high protein to help with wound healing and to help control his blood sugars. Vascular studies are scheduled 07/29/22. Follow up one week. Call or come in sooner if develop problems or concerns.
[2022-07-29 13:06] VITALS: RESP 18; TEMP 36
[2022-08-02 13:16] VITALS: BP 96/54; PULSE 72; RESP 20; TEMP 36.4
--- NOTE | 2022-08-02 14:36 | PN.PCM_ITS ---
History of Present Illness Date of Service: 08/02/22 Chief Complaint: Left anterior leg ulcer cluster and right anterior leg ulcer with severe edema History of Wound: Patient is a 77 year old male presents with non healing ulcer on his bilateral lower legs, with severe edema. He saw his PCP about the ulcers at the beginning of March. He has been wearing compression. He has been putting Neosporin on the ulcers. He has a history of DM, [place] 10/29, Stents x7 10/30, neuropathy, EF= 38%, HTN, hyperlipidemia, shingles on his face/head earlier this year. He had a DVT 09/25/21 that was diagnosed while being in TCU for debility from his spinal stenosis, he was placed on Eliquis. He does sleep in a bed at night. His ulcers were healed 06/23/22 but they have reoccurred. He has an ulcer on both anterior legs. His edema is much worse. Wound care to right and left anterior leg ulcers are collagen hydrogel covered with adaptic and topped with gauze daily. 3M 2 layer wraps for compression. Today he denies fever, chills, nausea, vomiting. Progress of Wound: Edema is much improved after the 3M 2 layer wraps. Objective Data Objective Data Vital Signs: Vital Signs Temp Pulse Resp BP 97.5 F L 72 20 H 96/54 L 08/02/22 13:16 08/02/22 13:16 08/02/22 13:16 08/02/22 13:16 Charges/Coding Visit Charges Office Visits / Consults: [id number] OV L3 Est Physical Exam Const alert, oriented x3 and no apparent distress General Appearance: cooperative HEENT normocephalic Neck full ROM Resp normal respiratory effort, normal air movement and clear to auscultation bilaterally Effort and Inspection: able to speak in complete sentences Cardio regular rate and regular rhythm Peripheral Pulses: dorsalis pedis pulses present bilateral 1+ and diminished GI soft to palpation and non-tender Extremity normal capillary refill Extremity Narrative: Edema is much improved this week +1 after wearing 3M 2 layer wraps. Skin Wound Narrative: Left anterior leg ulcer cluster and right anterior leg ulcer are healed this week. Neuro oriented x3 Psych mental status grossly normal Debridement Note Debridement Note No debridement was completed: No debridement was completed today Post-Debridement Measurements and Additional Note: Post-Debridement Measurements/Treatment WC - Nurse 1 - General Ulcer Assessment Start: 07/26/22 10:08 Freq: Status: Active Protocol: WC.LOWEXT Activity Type Activity Date Activity User E-sign Co-sign Detail Recorded Client Recorded Date Recorded By Document 07/26/22 10:13 KR [id number] 07/26/22 10:19 KR Document 07/29/22 13:06 DL [id number] 07/29/22 13:10 DL Document 08/02/22 13:16 DL [id number] 08/02/22 13:24 DL 07/26/22 07/29/22 08/02/22 10:13 13:06 13:16 - Today's Visit Information Type of service Initial Visit Nurse-only Follow-up Visit Visit (Physician/POSTAL TRANSPORTATION CLERK ) Arrival Mode Ambulatory, Ambulatory, Ambulatory, Walker Walker Walker Transfer Assistance None None Patient Identification Verified (Name & Yes Yes Yes ) Patient Requires Transmission-Based No No Precautions Finger Stick Blood Sugar(mg/dl) (if 117 indicated): Blood Sugar Stated by Patient Vital Signs Temperature (97.8 F-99.1 F) 97.5 F L 96.8 F L 97.5 F L Temperature Source Temporal Temporal Temporal Pulse Rate (60-100) 86 72 Pulse Location Monitor Apical Respiratory Rate (12-18) 18 20 H Respiratory rate source Observation Observation Blood Pressure (90/60-120/80) 120/67 96/54 L Blood Pressure Mean (mm Hg) 84 68 Source Monitor Monitor Position Semi-Fowlers Blood Pressure Location Right Arm History Since Last Visit- (Skip if this is Patient's initial visit) Have you changed medications since your No No No last visit? Any new allergies or adverse reactions No No No Had a fall/change in ADL's that may No No No increase risk of falls Signs or symptoms of abuse and/or No No No neglect since last visit Have you been in the hospital since your No No No last visit? Has dressing in place as prescribed No Yes Yes Has compression in place as prescribed N/A Yes Yes Has offloadiing in place as prescribed N/A N/A N/A Experienced any changes in pain level or No No No management Left Footwear Regular Shoe Regular Shoe Right Footwear Regular Shoe Regular Shoe Pain Scale: 0-10 Numeric Is Patient Pain Free? Yes Yes Yes - Nurse 1 - General Ulcer Measurement Start: 07/26/22 10:08 Freq: Status: Active Protocol: Activity Type Activity Date Activity User E-sign Co-sign Detail Recorded Client Recorded Date Recorded By Document 07/26/22 10:13 KR [id number] 07/26/22 10:19 KR Document 07/29/22 13:06 DL [id number] 07/29/22 13:10 DL Document 08/02/22 13:16 DL [id number] 08/02/22 13:24 DL 07/26/22 07/29/22 08/02/22 10:13 13:06 13:16 Wound Center Nurse 1 #4 Left Jones cluster -Current Size (cm) - Length 4 0.1 -Current Size (cm) - Width 4 0.1 -Current Size (cm) - Depth 0.1 0.1 -Total Square Cm 16 0.01 -Photo Taken Yes -Exudate Amt Medium Small None Present -Exudate Type Serosanguineous Serosanguineous -Wound Margin Distinct, Distinct, Flat & Intact Outline Outline Attached Attached -Granulation Amt Medium (34-66%) Large (67-100%) Large (67-100%) -Granulation Quality Red [place] -Necrosis Amt Small (1-33%) None Present (0 %) -Necrotic Tissue Type Adherent Slough -Structure Exposed N/A -Texture (Nina-wound Skin Appearance) Assessed, No Abnormality Scarring Scarring -Moisture (Nina-wound Skin Appearance) No Abnormality No Abnormality -Color (Nina-wound Skin Appearance) No Abnormality, No Abnormality No Abnormality Assessed -Temperature (Nina-wound Skin No Abnormality No Abnormality Appearance) (Pt Warm) (Pt Warm) -Tenderness on Palpation (Nina-wound No No No Skin Appearance) -Ulcer Cleansing Rinsed/ Soap and Water Soap and Water Irrigated with Saline -Foul Odor after Cleansing No No No -Anesthetic Used 5% Lidocaine 5% Lidocaine Gel Gel #3 Right Jones cluster -Current Size (cm) - Length 3 0.1 -Current Size (cm) - Width 6.5 0.1 -Current Size (cm) - Depth 0.1 0.1 -Total Square Cm 19.5 0.01 -Photo Taken Yes -Exudate Amt Medium Small None Present -Exudate Type Serosanguineous -Wound Margin Distinct, Distinct, Flat & Intact Outline Outline Attached Attached -Granulation Amt Large (67-100%) Large (67-100%) Large (67-100%) -Granulation Quality Red [place],Red [place] -Necrosis Amt None Present (0 None Present (0 %) %) -Structure Exposed N/A -Texture (Nina-wound Skin Appearance) Assessed, No Abnormality Scarring Scarring -Moisture (Nina-wound Skin Appearance) No Abnormality, No Abnormality No Abnormality Assessed -Color (Nina-wound Skin Appearance) Assessed,Not No Abnormality No Abnormality Assessed -Temperature (Nina-wound Skin No Abnormality No Abnormality No Abnormality Appearance) (Pt Warm) (Pt Warm) (Pt Warm) -Tenderness on Palpation (Nina-wound No No Skin Appearance) -Ulcer Cleansing Rinsed/ Soap and Water Soap and Water Irrigated with Saline -Foul Odor after Cleansing No No No -Anesthetic Used 5% Lidocaine 5% Lidocaine Gel Gel Right Calf (cm) 39.5 39.7 37 Right Ankle (cm) 25.2 24.2 24 Left Calf (cm) 38 39.7 36 Left Ankle (cm) 28 25.7 26 WC - Nurse 2 - General Ulcer CM Notes Start: 07/26/22 10:08 Freq: Status: Active Protocol: Activity Type Activity Date Activity User E-sign Co-sign Detail Recorded Client Recorded Date Recorded By Document 07/26/22 10:35 RONALDO [id number] 07/26/22 10:43 RONALDO 07/26/22 10:35 Wound Center Nurse 2 #4 Left Jones cluster -Time 10:36 -Correct Patient Yes -Correct Side, Site, Position Yes -Correct Procedure Yes -Procedure Performed Yes -Type of Procedure Debridement -Clinical Debridement Subcutaneous -Tissue Removed Subcutaneous -Post Debridement (cm) - Length 3.4 -Post Debridement (cm) - Width 4.3 -Post Debridement (cm) - Depth 0.1 -Total Square (Post) (cm) 14.62 -Area of Debridement (cm) - Length 3.4 -Area of Debridement (cm) - Width 4.3 -Total Square (Area) (cm) 14.62 -Tunneling No -Undermining/Tunneling No -Circular Undermining No -Wound/Ulcer Outcome Not Healed -Ulcer Cleansing Rinsed/ Irrigated with Saline -Foul Odor after Cleansing No -Bioengineered Tissue No -Bleeding Controlled with Pressure -Treatment Response Procedure Tolerated Well -Offloading No -Debridement - Subq, 1st 20sq cm No #3 Right Jones cluster -Time 10:36 -Correct Patient Yes -Correct Side, Site, Position Yes -Correct Procedure Yes -Procedure Performed Yes -Type of Procedure Debridement -Clinical Debridement Subcutaneous -Tissue Removed Subcutaneous -Post Debridement (cm) - Length 5.0 -Post Debridement (cm) - Width 5.9 -Post Debridement (cm) - Depth 0.1 -Total Square (Post) (cm) 29.50 -Area of Debridement (cm) - Length 5.0 -Area of Debridement (cm) - Width 5.9 -Total Square (Area) (cm) 29.50 -Tunneling No -Undermining/Tunneling No -Circular Undermining No -Wound/Ulcer Outcome Not Healed -Ulcer Cleansing Rinsed/ Irrigated with Saline -Foul Odor after Cleansing No -Bioengineered Tissue No -Bleeding Controlled with Pressure -Treatment Response Procedure Tolerated Well -Offloading No -Debridement - Subq, 1st 20sq cm Yes -Debridement, SubQ, ea addt'l 20sq cm 2 or part thereof Pain Scale: 0-10 Numeric Is Patient Pain Free? Yes WC - Nurse 3 - General Ulcer D/C NN Start: 07/26/22 10:08 Freq: Status: Active Protocol: Activity Type Activity Date Activity User E-sign Co-sign Detail Recorded Client Recorded Date Recorded By Document 07/26/22 10:54 KR [id number] 07/26/22 10:55 KR Document 07/29/22 13:06 DL [id number] 07/29/22 13:10 DL Document 08/02/22 14:10 KR [id number] 08/02/22 14:11 KR 07/26/22 07/29/22 08/02/22 10:54 13:06 14:10 Wound Care Nurse 3 #4 Left Jones cluster -Ulcer Cleansing Rinsed/ Soap and Water Irrigated with Saline -Foul Odor after Cleansing No -Primary Dressing Applied C Hydrogel ($) NonAdherent Contact Layer -Other Dressing hydrogel -Primary Dressing Covered/Secured with Dry Gauze, Secured with Tape -Other Covering abd #3 Right Jones cluster -Ulcer Cleansing Rinsed/ Irrigated with Saline -Primary Dressing Applied C Hydrogel ($) C Hydrogel ($) -Other Dressing hydrogel -Primary Dressing Covered/Secured with Dry Gauze, Dry Gauze & Secured with Roll Gauze, Tape Secured with Tape rosalie -Multi-Layered Wrap Application Multi-Layer Multi-Layer Comp - Bilat ($ Comp - Bilat ($ ) ) Left -Multi-Layered Wrap Application Multi-Layer Comp - Bilat ($ ) Treatment Response Procedure Tolerated Well Vital Signs Temperature (97.8 F-99.1 F) 96.8 F L Temperature Source Temporal Respiratory Rate (12-18) 18 Respiratory rate source Observation Pain Scale: 0-10 Numeric Is Patient Pain Free? Yes Yes Yes WC - Visit Discharge Discharge Condition Stable Stable Stable Ambulatory Status Ambulatory, Ambulatory, Wheelchair Walker Walker Transportation Private Auto Private Auto Private Auto Accompanied by Assessment/Plan Assessment/Plan (1) Diabetic ulcer of right lower leg: CODE(S): E11.622 - Type 2 diabetes mellitus with other skin ulcer; L97.919 - Non-pressure chronic ulcer of unspecified part of right lower leg with unspecified severity (2) Diabetic ulcer of left lower leg: CODE(S): E11.622 - Type 2 diabetes mellitus with other skin ulcer; L97.929 - Non-pressure chronic ulcer of unspecified part of left lower leg with unspecified severity (3) Edema: CODE(S): R60.9 - Edema, unspecified (4) Diabetic neuropathy: CODE(S): E11.40 - Type 2 diabetes mellitus with diabetic neuropathy, unspecified (5) Diabetes mellitus: CODE(S): E11.9 - Type 2 diabetes mellitus without complications PLAN: Plan Patient was evaluated at the wound healing center today. Left anterior leg ulcer cluster and Right anterior leg ulcer cluster are healed after wearing 3M 2 layer compression for the past week. His edema is much improved, +1. Will order Circaid compression stockings for compression now that his edema is under better control. He had venous doppler 09/25/21 when he was admitted to TCU which was positive for DVT and he was placed on Eliquis. Venous duplex studies were done on 07/28/22 which showed the bilateral extremities to be patent and compressible. Arterial studies completed on 07/28/22, Left Encouraged him to keep his legs elevated when sitting. Avoid standing for long periods of time, but may walk as much as tolerated. Encouraged a diet in low sodium, low carbohydrates and high protein to help with wound healing and to help control his blood sugars. Vascular studies are scheduled 07/29/22. Follow up one week with Circaid compression stockings so he can be educated how to place them.
[2022-08-09 14:37] VITALS: BP 107/51; PULSE 72; TEMP 36.2
--- NOTE | 2022-08-09 15:02 | PCM.WC.PN ---
History of Present Illness Date of Service: 08/09/22 Chief Complaint: Left anterior leg ulcer cluster and right anterior leg ulcer with severe edema History of Wound: Patient is a 77 year old male presents with non healing ulcer on his bilateral lower legs, with severe edema. He saw his PCP about the ulcers at the beginning of March. He has been wearing compression. He has been putting Neosporin on the ulcers. He has a history of DM, [place] 10/29, Stents x7 10/30, neuropathy, EF= 38%, HTN, hyperlipidemia, shingles on his face/head earlier this year. He had a DVT 09/25/21 that was diagnosed while being in TCU for debility from his spinal stenosis, he was placed on Eliquis. He does sleep in a bed at night. His ulcers were healed 06/23/22 but they have reoccurred. He has an ulcer on both anterior legs. His edema is much worse. Wound care to right and left anterior leg ulcers are collagen hydrogel covered with adaptic and topped with gauze daily. 3M 2 layer wraps for compression. Today he denies fever, chills, nausea, vomiting. Progress of Wound: Edema is much improved after the 3M 2 layer wraps, his anterior lower leg ulcers are healed. Objective Data Objective Data Vital Signs: Vital Signs Temp Pulse Resp BP 97.1 F L 72 20 H 107/51 L 08/09/22 14:37 08/09/22 14:37 08/02/22 13:16 08/09/22 14:37 Charges/Coding Visit Charges Office Visits / Consults: [id number] OV L3 Est Physical Exam Const alert, oriented x3 and no apparent distress General Appearance: cooperative HEENT normocephalic Neck full ROM Resp normal respiratory effort, normal air movement and clear to auscultation bilaterally Effort and Inspection: able to speak in complete sentences Cardio regular rate and regular rhythm Peripheral Pulses: dorsalis pedis pulses present bilateral 1+ and diminished GI soft to palpation and non-tender Extremity normal capillary refill Extremity Narrative: Edema is much improved this week after wearing 3M 2 layer wraps. Skin Wound Narrative: Left anterior leg ulcer cluster and right anterior leg ulcer remain healed this week. Neuro oriented x3 Psych mental status grossly normal Debridement Note Debridement Note No debridement was completed: No debridement was completed today Assessment/Plan Assessment/Plan (1) Diabetic ulcer of right lower leg: CODE(S): E11.622 - Type 2 diabetes mellitus with other skin ulcer; L97.919 - Non-pressure chronic ulcer of unspecified part of right lower leg with unspecified severity (2) Diabetic ulcer of left lower leg: CODE(S): E11.622 - Type 2 diabetes mellitus with other skin ulcer; L97.929 - Non-pressure chronic ulcer of unspecified part of left lower leg with unspecified severity (3) Edema: CODE(S): R60.9 - Edema, unspecified (4) Diabetic neuropathy: CODE(S): E11.40 - Type 2 diabetes mellitus with diabetic neuropathy, unspecified (5) Diabetes mellitus: CODE(S): E11.9 - Type 2 diabetes mellitus without complications PLAN: Plan Patient was evaluated at the wound healing center today. Left anterior leg ulcer cluster and Right anterior leg ulcer cluster remain healed this week. The 3M 2 layer compression for the past week has kept his edema under control. He brought his Circaid compression stockings in and he was educated how to put them on and how to wear them and care for them. He had venous doppler 09/25/21 when he was admitted to TCU which was positive for DVT and he was placed on Eliquis. Venous duplex studies were done on 07/28/22 which showed the bilateral extremities to be patent and compressible. Arterial studies completed on 07/28/22, Left Encouraged him to keep his legs elevated when sitting. Avoid standing for long periods of time, but may walk as much as tolerated. Encouraged a diet in low sodium, low carbohydrates and high protein to help with wound healing and to help control his blood sugars. Vascular studies are scheduled 07/29/22. Follow up as needed.
== END 2022-08-09 14:57 | disposition home or self-care (01) ==
LOC: WC 13:45
PROVIDERS: PCP Family Medicine; Visit Provider Nurse Practitioner Family
DX: E11.622 Type 2 diabetes mellitus with other skin ulcer (principal); L98.491 Non-pressure chronic ulcer of skin of other sites limited to breakdown of skin; L97.811 Non-pressure chronic ulcer of other part of right lower leg limited to breakdown of skin; L97.821 Non-pressure chronic ulcer of other part of left lower leg limited to breakdown of skin; E11.40 Type 2 diabetes mellitus with diabetic neuropathy, unspecified; Z79.4 Long term (current) use of insulin; M48.00 Spinal stenosis, site unspecified; I25.10 Atherosclerotic heart disease of native coronary artery without angina pectoris; E78.5 Hyperlipidemia, unspecified; R60.9 Edema, unspecified; Z87.891 Personal history of nicotine dependence; I10 Essential (primary) hypertension
CPT/HCPCS: 11042; 11045; 29581; 99213; G0463

== ENCOUNTER 2022-09-07 13:04 | Outpatient (RCR) | payer MEDICARE, OTHER, SELFPAY ==
[2021-02-27 07:06] VITALS: BMI 40.4
[2022-09-07 13:10] VITALS: BP 113/67; PULSE 74; RESP 18; TEMP 35.5
--- NOTE | 2022-09-07 15:21 | HP.PCM_ITS ---
History of Present Illness Date of Service: 09/07/22 Chief Complaint: Left anterior leg ulcer cluster and edema History of Wound: Patient is a 77 year old male presents with a new superficial ulcer cluster on left anterior leg. He was just discharged from the wound center on 08/09/22 and 06/23/22. He was originally seen for his uncontrolled edema that caused ulcer on his legs bilaterally. He has been wearing juxtalite compression stockings which has helped control his edema but is not completely controlling the edema. He has been putting Neosporin on the ulcers. He has a history of DM, [place] 10/29, Stents x7 10/30, CAD, [place], neuropathy, EF= 38%, HTN, hyperlipidemia, shingles on his face/head earlier this year. He had a DVT 09/25/21 that was diagnosed while being in TCU for debility from his spinal stenosis, he was placed on Eliquis. He does sleep in a bed at night. His ulcers were healed 06/23/22 and 08/09/22 but they have reoccurred. His edema is better controlled. Wound care to left anterior leg ulcers are collagen hydrogel covered with adaptic and topped with gauze daily. 3M 2 layer wraps for compression. Today he denies fever, chills, nausea, vomiting. Progress of Wound: Left anterior leg has several superficial ulcers that have a pink wound bed. He also has a couple of blisters that are intact with clear fluid in them. They appear to be on the edge of where one of the straps from his compression stockings are placed. [facility] Medical History Atherosclerotic heart disease of [place] coronary artery without angina pectoris Cardiomyopathy DM type 2 (diabetes mellitus, type 2) Essential hypertension Hyperlipidemia NSTEMI (non-ST elevated myocardial infarction) Obesity Pericardial effusion Presence of stent in coronary artery (10/20/19) Shingles Spinal stenosis Home Medications folic acid 400 mcg tablet 0.4 mg PO DAILY supplement 10/19/19 [History Last Taken 09/08/21] metformin 1,000 mg tablet,extended release 24hr 1,000 mg PO DAILY diabetes 10/19/19 [History Last Taken 09/11/21 09:00] tamsulosin 0.4 mg capsule 0.4 mg PO QHS BPH 07/02/20 [History Last Taken 09/10 21:00] dulaglutide 1.5 mg/0.5 mL subcutaneous pen injector (Trulicity) 0.75 mg subcut TU diabetes 05/15/21 [History Last Taken 09/08/21 08:00] pravastatin 80 mg tablet 80 mg PO DAILY cholesterol 05/15/21 [History Last Taken 09/10/21 21:00] acetaminophen 500 mg tablet 1,000 mg PO Q6H PRN PRN Pain Score 1-3 #0 tabs 09/30/21 [Rx Last Taken Unknown] docusate sodium 100 mg capsule (Colace) 100 mg PO BID 10/29/21 [History Last Taken Unknown] krill oil 500 mg capsule 500 mg PO DAILY 10/29/21 [History Last Taken Unknown] mirabegron 25 mg tablet,extended release 24 hr 25 mg PO DAILY 10/29/21 [History Last Taken Unknown] potassium chloride 20 mEq tablet,extended release 20 meq PO DAILY 10/29/21 [History Last Taken Unknown] baclofen 10 mg tablet 10 mg PO TID PRN Muscle pain/spasm #90 tabs 11/02/21 [Rx Last Taken Unknown] gabapentin 600 mg tablet 600 mg PO TID #90 tabs 11/02/21 [Rx Last Taken Unknown] hydrocodone-acetaminophen 5-325mg 5mg-325mg 1 tab PO TID 12/15/21 [History Last Taken Unknown] aspirin 81 mg tablet,delayed release (Adult Low Dose Aspirin) 81 mg PO DAILY 01/05/22 [History Last Taken Unknown] clopidogrel 75 mg tablet See Rx Instructions .Route .COMPLEX #90 TABLETS 01/27/22 [Rx Last Taken Unknown] cholecalciferol (vitamin D3) 50 mcg (2,000 unit) capsule 50 mcg PO DAILY 01/28/22 [History Last Taken Unknown] insulin glargine 100 unit/mL (3 mL) subcutaneous pen (Basaglar KwikPen U-100 Insulin) 26 unit subcut BID diabetes 05/13/22 [History Last Taken Unknown] dulaglutide 0.75 mg/0.5 mL subcutaneous pen injector (Trulicity) 0.75 mg subcut QWEEK 05/25/22 [History Last Taken Unknown] mupirocin calcium 2 % topical cream 1 applic topical BID 05/25/22 [History Last Taken Unknown] naloxone 0.4 mg/0.4 mL injection, auto-injector 4 mg 05/25/22 [History Last Taken Unknown] oxybutynin 3.9 mg/24 hour transdermal 4 day patch mg 05/25/22 [History Last Taken Unknown] valacyclovir 1 gram tablet 1,000 mg PO BID 05/25/22 [History Last Taken Unknown] carvedilol 3.125 mg tablet 3.125 mg PO BIDCM #180 tabs 08/02/22 [Rx Last Taken Unknown] furosemide 40 mg tablet 40 mg PO .COMPLEX #270 tabs 08/02/22 [Rx Last Taken Unknown] Allergy/AdvReac Type Severity Reaction Status Date / Time lisinopril AdvReac cough Verified 09/07/22 13:20 Surgical History H/O knee surgery History of back surgery History of left heart catheterization (10/20/19) Presence of coronary angioplasty implant and graft (~10/20/19) Social History household members: spouse Smoking Status: Former smoker how long ago did patient quit smokin+ years used cigars ocationally alcohol intake: current alcohol intake frequency: a few times a month Alcohol type: beer substance use type: does not use caffeine: No ROS Constitutional Constitutional: Denies chills, fatigue, fever(s) or frequent falls Eyes Eyes: Reports none ENT HEENT: Reports none Cardiovascular Cardiovascular: Reports leg edema; Denies chest pain or dyspnea Respiratory/Chest Respiratory/Chest: Denies cough or dyspnea Gastrointestinal Gastrointestinal: Reports none Musculoskeletal Musculoskeletal: Reports abnormal gait, joint pain and joint stiffness Integumentary Integumentary: Reports skin ulcer and skin swelling Neurologic Neurologic: Reports numbness; Denies dizziness or frequent falls Psychiatric Psychiatric: Reports none Endocrine Endocrinology: Reports none Vital Signs Vital Signs Vital Signs: 09/07/22 13:10 Temperature 95.9 F L Temperature Source Temporal Pulse Rate 74 Respiratory Rate 18 Blood Pressure 113/67 Blood Pressure Mean 82 Blood Pressure Source Monitor Blood Pressure Position Sitting Blood Pressure Location Left Arm Oxygen Delivery Method Room Air Physical Exam Const alert, oriented x3 and no apparent distress General Appearance: cooperative and well kempt Orientation / Consciousness: awake HEENT normocephalic Eyes Eyelid: eyelids abnormal right lower eyelid swelling and left lower eyelid swelling Neck full ROM Resp normal respiratory effort, normal air movement and clear to auscultation bilaterally Effort and Inspection: able to speak in complete sentences Cardio regular rate and regular rhythm Peripheral Pulses: dorsalis pedis pulses present bilateral 1+ and diminished GI soft to palpation and non-tender Extremity normal capillary refill Extremity Narrative: Bilateral lower extremity edema +2. He has been wearing his compression stockings. Skin Wound Narrative: Left anterior leg ulcer cluster is superficial with pink wound bed. Has a couple blisters in this area that are intact with clear fluid present. Neuro oriented x3 Psych mental status grossly normal Debridement Note Debridement Note Wound debrided: anterior leg ulcer cluster Laterality: Left Wound Grade/Stage: Stage II Type of Debridement: Excisional debridement Anesthesia Used: 5% Lidocaine Gel Depth: Down to and including healthy tissue and in the subcutaneous layer Percentage of wound debrided: 100 Instrument Used: 5mm curette Tissue Removed: Devitalized tissue and slough Severity: Fat Layer Exposed Amount of bleeding with debridement: Mild Bleeding Controlled with: Compression and gauze Patient tolerated procedure: Patient tolerated procedure well Post-Debridement Measurements and Additional Note: Post-Debridement Measurements/Treatment - Nurse 1 - General Ulcer Assessment Start: 09/07/22 13:10 Freq: Status: Active Protocol: [place] Activity Type Activity Date Activity User E-sign Co-sign Detail Recorded Client Recorded Date Recorded By Document 09/07/22 13:10 [facility] [id number] 09/07/22 13:19 [facility] 09/07/22 13:10 - Today's Visit Information Type of service Follow-up Visit (Physician/[employer] ) Arrival Mode Ambulatory Transfer Assistance None Accompanied by Patient Identification Verified (Name & Yes ) Patient Requires Transmission-Based No Precautions Vital Signs Temperature (97.8 F-99.1 F) 95.9 F L Temperature Source Temporal Pulse Rate (60-100) 74 Pulse Location Monitor Respiratory Rate (12-18) 18 Respiratory rate source Observation Oxygen Delivery Method Room Air Blood Pressure (90/60-120/80) 113/67 Blood Pressure Mean (mm Hg) 82 Source Monitor Position Sitting Blood Pressure Location Left Arm History Since Last Visit- (Skip if this is Patient's initial visit) Left Footwear Diabetic Shoe Right Footwear Diabetic Shoe Pain Scale: 0-10 Numeric Is Patient Pain Free? Yes - Nurse 1 - General Ulcer Measurement Start: 09/07/22 13:10 Freq: Status: Active Protocol: Activity Type Activity Date Activity User E-sign Co-sign Detail Recorded Client Recorded Date Recorded By Document 09/07/22 13:10 [facility] [id number] 09/07/22 13:19 [facility] 09/07/22 13:10 Wound Center Nurse 1 #5- L OZUNA CLUSTER -Combined with other wound No -Current Size (cm) - Length 5.6 -Current Size (cm) - Width 5.8 -Current Size (cm) - Depth 0.1 -Total Square Cm 32.48 -Date of Last Picture (Recall this 09/07/22 field) -Photo Taken Yes -Tunneling No -Undermining/Tunneling No -Circular Undermining No -Exudate Amt Medium -Exudate Type Serosanguineous -Wound Margin Flat & Intact -Granulation Amt Small (1-33%) -Granulation Quality Red -Slough/Fibrin Yes -Necrosis Amt Large (67-100%) -Necrotic Tissue Type Adherent Slough -Texture (Nina-wound Skin Appearance) Assessed, Scarring -Moisture (Nina-wound Skin Appearance) Assessed -Color (Nina-wound Skin Appearance) Assessed, Erythema -Temperature (Nina-wound Skin No Abnormality Appearance) (Pt Warm) -Tenderness on Palpation (Nina-wound No Skin Appearance) -Ulcer Cleansing Soap and Water -Foul Odor after Cleansing No -Anesthetic Used 4% Lidocaine Solution Right Calf (cm) 40.3 Right Ankle (cm) 27.1 Left Calf (cm) 38.8 Left Ankle (cm) 27.4 - Nurse 2 - General Ulcer CM Notes Start: 09/07/22 13:10 Freq: Status: Active Protocol: Activity Type Activity Date Activity User E-sign Co-sign Detail Recorded Client Recorded Date Recorded By Document 09/07/22 13:28 [id number] 09/07/22 13:32 09/07/22 13:28 Wound Center Nurse 2 #5- L OZUNA CLUSTER -Time 13:28 -Correct Patient Yes -Correct Side, Site, Position Yes -Correct Procedure Yes -Procedure Performed Yes -Type of Procedure Debridement -Clinical Debridement Subcutaneous -Tissue Removed Subcutaneous -Post Debridement (cm) - Length 5.0 -Post Debridement (cm) - Width 2.5 -Post Debridement (cm) - Depth 0.1 -Total Square (Post) (cm) 12.50 -Area of Debridement (cm) - Length 5.0 -Area of Debridement (cm) - Width 2.5 -Total Square (Area) (cm) 12.50 -Tunneling No -Undermining/Tunneling No -Circular Undermining No -Wound/Ulcer Outcome Not Healed -Ulcer Cleansing Rinsed/ Irrigated with Saline -Foul Odor after Cleansing No -Bioengineered Tissue No -Bleeding Controlled with Pressure -Treatment Response Procedure Tolerated Well -Offloading No -Debridement - Subq, 1st 20sq cm Yes Pain Scale: 0-10 Numeric Is Patient Pain Free? Yes - Nurse 3 - General Ulcer D/C NN Start: 09/07/22 13:10 Freq: Status: Active Protocol: Activity Type Activity Date Activity User E-sign Co-sign Detail Recorded Client Recorded Date Recorded By Document 09/07/22 13:51 [facility] [id number] 09/07/22 13:52 [facility] 09/07/22 13:51 Wound Care Nurse 3 #5- L OZUNA CLUSTER -Ulcer Cleansing Rinsed/ Irrigated with Saline -Foul Odor after Cleansing No -Primary Dressing Applied C Hydrogel ($), NonAdherent Contact Layer -Other Dressing PER MW RN -Primary Dressing Covered/Secured with Dry Gauze Left -Multi-Layered Wrap Application Multi-Layer Comp - Left ($) -Other PER MW RN Treatment Response Procedure Tolerated Well Pain Scale: 0-10 Numeric Is Patient Pain Free? Yes - Visit Discharge Discharge Condition Stable Ambulatory Status Ambulatory Transportation Private Auto Accompanied by Charges/Coding Visit Charges Office Visits / Consults: 06263 OV L3 Est (25 modifier) Procedures Integumentary [id number]: [id number] Raquel subq tissue 20 sq cm/< Assessment/Plan Assessment/Plan (1) Diabetic ulcer of left lower leg: CODE(S): E11.622 - Type 2 diabetes mellitus with other skin ulcer; L97.929 - Non-pressure chronic ulcer of unspecified part of left lower leg with unspecified severity (2) Edema: CODE(S): R60.9 - Edema, unspecified (3) Diabetic neuropathy: CODE(S): E11.40 - Type 2 diabetes mellitus with diabetic neuropathy, unspecified (4) Diabetes mellitus: CODE(S): E11.9 - Type 2 diabetes mellitus without complications (5) Chronic diastolic congestive heart failure: CODE(S): I50.32 - Chronic diastolic (congestive) heart failure (6) Coronary artery disease: CODE(S): I25.10 - Atherosclerotic heart disease of [place] coronary artery without angina pectoris PLAN: Plan Patient was evaluated at the wound center today. Wound care - Collagen hydrogel covered with adaptic and topped with gauze to the left anterior leg ulcer cluster. He may place adaptic over the blistered areas to help protect them. Compression - Will place 3M 2 layer wraps to help get better control of his edema. Since he has been discharged from the wound center twice in the past 2 months, I will keep a close eye on him. He is wearing his compression, but I wonder if he is having a hard time managing at home without having complications, such as not placing compression stockings properly or issues with diet that causes his CHF to start having issues. Unless he is having issues with lymphedema and he may benefit from compression pumps. Encouraged him to eat a low sodium diet, this will help his edema, his CHF and his HTN. Elevate legs when sitting. Follow up one week. Call or come in sooner if develop any questions or concerns.
--- NOTE | 2022-09-07 15:21 | PN.PCM_ITS ---
History of Present Illness Date of Service: 09/07/22 Chief Complaint: Left anterior leg ulcer cluster and right anterior leg ulcer with severe edema History of Wound: Patient is a 77 year old male presents with non healing ulcer on his bilateral lower legs, with severe edema. He saw his PCP about the ulcers at the beginning of March. He has been wearing compression. He has been putting Neosporin on the ulcers. He has a history of DM, [place] 10/29, Stents x7 10/30, neuropathy, EF= 38%, HTN, hyperlipidemia, shingles on his face/head earlier this year. He had a DVT 09/25/21 that was diagnosed while being in TCU for debility from his spinal stenosis, he was placed on Eliquis. He does sleep in a bed at night. His ulcers were healed 06/23/22 but they have reoccurred. He has an ulcer on both anterior legs. His edema is much worse. Wound care to right and left anterior leg ulcers are collagen hydrogel covered with adaptic and topped with gauze daily. 3M 2 layer wraps for compression. Today he denies fever, chills, nausea, vomiting. Objective Data Objective Data Vital Signs: Vital Signs Temp Pulse Resp BP O2 Del Method 95.9 F L 74 18 113/67 Room Air 09/07/22 13:10 09/07/22 13:10 09/07/22 13:10 09/07/22 13:10 09/07/22 13:10 Oxygen Delivery Method Room Air Debridement Note Debridement Note Post-Debridement Measurements and Additional Note: Post-Debridement Measurements/Treatment - Nurse 1 - General Ulcer Assessment Start: 09/07/22 13:10 Freq: Status: Active Protocol: [email or web address] Activity Type Activity Date Activity User E-sign Co-sign Detail Recorded Client Recorded Date Recorded By Document 09/07/22 13:10 [facility] [id number] 09/07/22 13:19 [facility] 09/07/22 13:10 - Today's Visit Information Type of service Follow-up Visit (Physician/[employer] ) Arrival Mode Ambulatory Transfer Assistance None Accompanied by Patient Identification Verified (Name & Yes ) Patient Requires Transmission-Based No Precautions Vital Signs Temperature (97.8 F-99.1 F) 95.9 F L Temperature Source Temporal Pulse Rate (60-100) 74 Pulse Location Monitor Respiratory Rate (12-18) 18 Respiratory rate source Observation Oxygen Delivery Method Room Air Blood Pressure (90/60-120/80) 113/67 Blood Pressure Mean (mm Hg) 82 Source Monitor Position Sitting Blood Pressure Location Left Arm History Since Last Visit- (Skip if this is Patient's initial visit) Left Footwear Diabetic Shoe Right Footwear Diabetic Shoe Pain Scale: 0-10 Numeric Is Patient Pain Free? Yes WC - Nurse 1 - General Ulcer Measurement Start: 09/07/22 13:10 Freq: Status: Active Protocol: Activity Type Activity Date Activity User E-sign Co-sign Detail Recorded Client Recorded Date Recorded By Document 09/07/22 13:10 [facility] [id number] 09/07/22 13:19 [facility] 09/07/22 13:10 Wound Center Nurse 1 #5- L OZUNA CLUSTER -Combined with other wound No -Current Size (cm) - Length 5.6 -Current Size (cm) - Width 5.8 -Current Size (cm) - Depth 0.1 -Total Square Cm 32.48 -Date of Last Picture (Recall this 09/07/22 field) -Photo Taken Yes -Tunneling No -Undermining/Tunneling No -Circular Undermining No -Exudate Amt Medium -Exudate Type Serosanguineous -Wound Margin Flat & Intact -Granulation Amt Small (1-33%) -Granulation Quality Red -Slough/Fibrin Yes -Necrosis Amt Large (67-100%) -Necrotic Tissue Type Adherent Slough -Texture (Nina-wound Skin Appearance) Assessed, Scarring -Moisture (Nina-wound Skin Appearance) Assessed -Color (Nnia-wound Skin Appearance) Assessed, Erythema -Temperature (Nina-wound Skin No Abnormality Appearance) (Pt Warm) -Tenderness on Palpation (Nina-wound No Skin Appearance) -Ulcer Cleansing Soap and Water -Foul Odor after Cleansing No -Anesthetic Used 4% Lidocaine Solution Right Calf (cm) 40.3 Right Ankle (cm) 27.1 Left Calf (cm) 38.8 Left Ankle (cm) 27.4 WC - Nurse 2 - General Ulcer CM Notes Start: 09/07/22 13:10 Freq: Status: Active Protocol: Activity Type Activity Date Activity User E-sign Co-sign Detail Recorded Client Recorded Date Recorded By Document 09/07/22 13:28 [id number] 09/07/22 13:32 09/07/22 13:28 Wound Center Nurse 2 #5- L OZUNA CLUSTER -Time 13:28 -Correct Patient Yes -Correct Side, Site, Position Yes -Correct Procedure Yes -Procedure Performed Yes -Type of Procedure Debridement -Clinical Debridement Subcutaneous -Tissue Removed Subcutaneous -Post Debridement (cm) - Length 5.0 -Post Debridement (cm) - Width 2.5 -Post Debridement (cm) - Depth 0.1 -Total Square (Post) (cm) 12.50 -Area of Debridement (cm) - Length 5.0 -Area of Debridement (cm) - Width 2.5 -Total Square (Area) (cm) 12.50 -Tunneling No -Undermining/Tunneling No -Circular Undermining No -Wound/Ulcer Outcome Not Healed -Ulcer Cleansing Rinsed/ Irrigated with Saline -Foul Odor after Cleansing No -Bioengineered Tissue No -Bleeding Controlled with Pressure -Treatment Response Procedure Tolerated Well -Offloading No -Debridement - Subq, 1st 20sq cm Yes Pain Scale: 0-10 Numeric Is Patient Pain Free? Yes - Nurse 3 - General Ulcer D/C NN Start: 09/07/22 13:10 Freq: Status: Active Protocol: Activity Type Activity Date Activity User E-sign Co-sign Detail Recorded Client Recorded Date Recorded By Document 09/07/22 13:51 [facility] [id number] 09/07/22 13:52 [facility] 09/07/22 13:51 Wound Care Nurse 3 #5- L OZUNA CLUSTER -Ulcer Cleansing Rinsed/ Irrigated with Saline -Foul Odor after Cleansing No -Primary Dressing Applied C Hydrogel ($), NonAdherent Contact Layer -Other Dressing PER MW RN -Primary Dressing Covered/Secured with Dry Gauze Left -Multi-Layered Wrap Application Multi-Layer Comp - Left ($) -Other PER MW RN Treatment Response Procedure Tolerated Well Pain Scale: 0-10 Numeric Is Patient Pain Free? Yes - Visit Discharge Discharge Condition Stable Ambulatory Status Ambulatory Transportation Private Auto Accompanied by
== END 2022-09-08 23:59 | disposition home or self-care (01) ==
LOC: WC 13:04
PROVIDERS: PCP Family Medicine; Visit Provider Nurse Practitioner Family
DX: E11.622 Type 2 diabetes mellitus with other skin ulcer (principal); L98.492 Non-pressure chronic ulcer of skin of other sites with fat layer exposed; L97.922 Non-pressure chronic ulcer of unspecified part of left lower leg with fat layer exposed; I11.0 Hypertensive heart disease with heart failure; I42.9 Cardiomyopathy, unspecified; I50.32 Chronic diastolic (congestive) heart failure; E11.40 Type 2 diabetes mellitus with diabetic neuropathy, unspecified; Z79.4 Long term (current) use of insulin; E78.5 Hyperlipidemia, unspecified; I25.10 Atherosclerotic heart disease of native coronary artery without angina pectoris; Z87.891 Personal history of nicotine dependence
CPT/HCPCS: 11042; 29581; 99213; G0463

== ENCOUNTER 2022-09-13 12:53 | Outpatient (RCR) | payer MEDICARE, OTHER, SELFPAY ==
[2021-02-27 07:06] VITALS: BMI 40.4
[2022-09-09 00:44] VITALS: BP 113/67; PULSE 74; RESP 18; TEMP 35.5
[2022-09-13 13:05] VITALS: BP 130/69; PULSE 75; TEMP 36.2
--- NOTE | 2022-09-13 14:52 | PN.PCM_ITS ---
History of Present Illness Date of Service: 09/13/22 Chief Complaint: Left anterior leg ulcer cluster and right anterior leg ulcer with severe edema History of Wound: Patient is a 77 year old male presents with non healing ulcer on his bilateral lower legs, with severe edema. He saw his PCP about the ulcers at the beginning of March. He has been wearing compression. He has been putting Neosporin on the ulcers. He has a history of DM, [place] 10/29, Stents x7 10/30, neuropathy, EF= 38%, HTN, hyperlipidemia, shingles on his face/head earlier this year. He had a DVT 09/25/21 that was diagnosed while being in TCU for debility from his spinal stenosis, he was placed on Eliquis. He does sleep in a bed at night. His ulcers were healed 06/23/22 but they have reoccurred. He has an ulcer on both anterior legs. His edema is much worse. Wound care to right and left anterior leg ulcers are collagen hydrogel covered with adaptic and topped with gauze daily. 3M 2 layer wraps for compression. Today he denies fever, chills, nausea, vomiting. Progress of Wound: Left anterior leg ulcers and blisters have resolved since wearing 3M 2 layer wraps. His edema is much better controlled. He will start to wear his juxtalite stockings for compression. Objective Data Objective Data Vital Signs: Vital Signs Temp Pulse Resp BP 97.2 F L 75 18 130/69 H 09/13/22 13:05 09/13/22 13:05 09/09/22 00:44 09/13/22 13:05 Charges/Coding Visit Charges Office Visits / Consults: 78601 OV L3 Est Physical Exam Const alert, oriented x3 and no apparent distress General Appearance: cooperative and well kempt Orientation / Consciousness: awake HEENT normocephalic Eyes Eyelid: eyelids abnormal right upper eyelid, right lower eyelid ectropion and swelling, left upper eyelid and left lower eyelid ectropion and swelling Sclera: sclera normal Pupil: PERRL Neck full ROM Resp normal respiratory effort, normal air movement and clear to auscultation bilaterally Effort and Inspection: able to speak in complete sentences Cardio regular rate and regular rhythm Peripheral Pulses: dorsalis pedis pulses present bilateral 1+ and diminished GI soft to palpation and non-tender Extremity normal capillary refill Extremity Narrative: Bilateral lower extremity edema +2. Skin Wound Narrative: Left anterior leg ulcer cluster and blisters are healed. Neuro oriented x3 Psych mental status grossly normal Debridement Note Debridement Note No debridement was completed: No debridement was completed today Post-Debridement Measurements and Additional Note: Post-Debridement Measurements/Treatment JAG - Nurse 1 - General Ulcer Assessment Start: 09/13/22 13:05 Freq: Status: Active Protocol: [place] Activity Type Activity Date Activity User E-sign Co-sign Detail Recorded Client Recorded Date Recorded By Document 09/13/22 13:05 KECIA [id number] 09/13/22 13:13 KECIA 09/13/22 13:05 WC - Today's Visit Information Type of service Follow-up Visit (Physician/HUMAN RESOURCES CLERK ) Arrival Mode Ambulatory Patient Identification Verified (Name & Yes ) Patient Requires Transmission-Based No Precautions Safety Precautions NA Vital Signs Temperature (97.8 F-99.1 F) 97.2 F L Temperature Source Temporal Pulse Rate (60-100) 75 Pulse Location Monitor Blood Pressure (90/60-120/80) 130/69 H Blood Pressure Mean (mm Hg) 89 Source Monitor History Since Last Visit- (Skip if this is Patient's initial visit) Have you changed medications since your No last visit? Any new allergies or adverse reactions No Had a fall/change in ADL's that may No increase risk of falls Signs or symptoms of abuse and/or No neglect since last visit Have you been in the hospital since your Yes last visit? Has dressing in place as prescribed Yes Has compression in place as prescribed Yes Has offloadiing in place as prescribed N/A Experienced any changes in pain level or No management Left Footwear Regular Shoe Right Footwear Regular Shoe Pain Scale: 0-10 Numeric Is Patient Pain Free? Yes [facility] Nurse 1 - General Ulcer Measurement Start: 09/13/22 13:05 Freq: Status: Active Protocol: Activity Type Activity Date Activity User E-sign Co-sign Detail Recorded Client Recorded Date Recorded By Document 09/13/22 13:05 KECIA [id number] 09/13/22 13:13 KECIA 09/13/22 13:05 Wound Center Nurse 1 #5- L OZUNA CLUSTER -Combined with other wound No -Current Size (cm) - Length 0.1 -Current Size (cm) - Width 0.1 -Current Size (cm) - Depth 0.1 -Total Square Cm 0.01 -Date of Last Picture (Recall this 09/13/22 field) -Photo Taken Yes -Tunneling No -Undermining/Tunneling No -Circular Undermining No -Change in Wound Grade/Stage No -Exudate Amt None Present -Granulation Quality N/A -Slough/Fibrin No -Necrosis Amt None Present (0 %) -Structure Exposed N/A -Texture (Nina-wound Skin Appearance) No Abnormality, Assessed -Moisture (Nina-wound Skin Appearance) No Abnormality, Assessed -Color (Nina-wound Skin Appearance) No Abnormality, Assessed -Temperature (Nina-wound Skin No Abnormality Appearance) (Pt Warm) -Tenderness on Palpation (Nina-wound No Skin Appearance) -Ulcer Cleansing Soap and Water -Foul Odor after Cleansing No -Anesthetic Used 5% Lidocaine Gel Left Calf (cm) 40 Left Ankle (cm) 27 WC - Nurse 2 - General Ulcer CM Notes Start: 09/13/22 13:05 Freq: Status: Active Protocol: Activity Type Activity Date Activity User E-sign Co-sign Detail Recorded Client Recorded Date Recorded By Document 09/13/22 13:31 RONALDO [id number] 09/13/22 13:32 RONALDO 09/13/22 13:31 Wound Center Nurse 2 #5- L OZUNA CLUSTER -Correct Patient No -Correct Side, Site, Position No -Correct Procedure No -Procedure Performed No -Post Debridement (cm) - Length 0 -Post Debridement (cm) - Width 0 -Post Debridement (cm) - Depth 0 -Total Square (Post) (cm) 0 -Area of Debridement (cm) - Length 0 -Area of Debridement (cm) - Width 0 -Total Square (Area) (cm) 0 -Wound/Ulcer Outcome Healed- Epithelialized Pain Scale: 0-10 Numeric Is Patient Pain Free? Yes WC - Nurse 3 - General Ulcer D/C NN Start: 09/13/22 13:05 Freq: Status: Active Protocol: Activity Type Activity Date Activity User E-sign Co-sign Detail Recorded Client Recorded Date Recorded By Document 09/13/22 13:50 DL [id number] 09/13/22 13:51 DL 09/13/22 13:50 Wound Care Nurse 3 Treatment Response Procedure Tolerated Well Pain Scale: 0-10 Numeric Is Patient Pain Free? Yes WC - Visit Discharge Discharge Condition Stable Ambulatory Status Ambulatory, Walker Transportation Private Auto Notes: healed, adaptic , gauze and CircAids today Assessment/Plan Assessment/Plan (1) Diabetic ulcer of left lower leg: CODE(S): E11.622 - Type 2 diabetes mellitus with other skin ulcer; L97.929 - Non-pressure chronic ulcer of unspecified part of left lower leg with unspecified severity (2) Edema: CODE(S): R60.9 - Edema, unspecified (3) Diabetic neuropathy: CODE(S): E11.40 - Type 2 diabetes mellitus with diabetic neuropathy, unspecified (4) Diabetes mellitus: CODE(S): E11.9 - Type 2 diabetes mellitus without complications (5) Chronic diastolic congestive heart failure: CODE(S): I50.32 - Chronic diastolic (congestive) heart failure (6) Coronary artery disease: CODE(S): I25.10 - Atherosclerotic heart disease of [place] coronary artery without angina pectoris PLAN: Plan Patient was evaluated at the wound center today. Ulcers and blisters healed today. Massage lotion onto legs and healed wounds to help soften scarring. Compression - He did well with the 3M 2 layer wraps. His edema is under better control. Will have him start wearing his Juxtalite compression stockings. I will not be discharging him from the wound center so we can closely evaluate his edema management. May need to consider compression pumps in the future. Encouraged him to eat a low sodium diet, this will help his edema, his CHF and his HTN. Elevate legs when sitting. He has had increased edema of his lower eye lids that has been worsening over time. He states that he is starting to have some vision issues due to the edema. He wears CPAP at night for his [place]. He has an appointment coming up with the [facility] where they can evaluate this. Follow up 3 weeks. Call or come in sooner if develop any questions or concerns.
== END 2022-10-09 23:59 | disposition home or self-care (01) ==
LOC: WC 12:53
PROVIDERS: PCP Family Medicine; Visit Provider Nurse Practitioner Family
DX: E11.622 Type 2 diabetes mellitus with other skin ulcer (principal); L98.492 Non-pressure chronic ulcer of skin of other sites with fat layer exposed; L97.922 Non-pressure chronic ulcer of unspecified part of left lower leg with fat layer exposed; I11.0 Hypertensive heart disease with heart failure; I50.32 Chronic diastolic (congestive) heart failure; E11.40 Type 2 diabetes mellitus with diabetic neuropathy, unspecified; E78.5 Hyperlipidemia, unspecified; I25.10 Atherosclerotic heart disease of native coronary artery without angina pectoris
CPT/HCPCS: 99213; G0463

== ENCOUNTER 2022-12-27 10:45 | Outpatient (RCR) | payer MEDICARE, OTHER, SELFPAY ==
[2021-02-27 07:06] VITALS: BMI 40.4
[2022-10-10 00:36] VITALS: BP 130/69; PULSE 75; RESP 18; TEMP 36.2
[2022-12-13 09:48] VITALS: BP 134/68; PULSE 78; TEMP 35.9
--- NOTE | 2022-12-13 11:28 | PCM.WC.HP ---
History of Present Illness Date of Service: 12/13/22 Chief Complaint: Right anterior leg wound History of Wound: Patient is a 77 year old male presents with a wound on his right anterior leg. He states that he scratched it 4 days ago and it has gotten worse. He has concerns that it will get worse like his previous ulcer. He has been wearing his Circaid compression stockings which have really helped with his edema. He was recently seen at the wound center for a non healing ulcer on his left leg. He has been placing left over silver dressing from his previous ulcer. Today he denies any fever, chills, nausea or vomiting. Progress of Wound: Right distal anterior leg wound that is superficial and pink in color. Edema is well controlled and is +1. He has been doing a good job wearing his compression stockings. [facility] Medical History (Reviewed 12/19/22 @ 17:49 by Erica Babb BUSINESS OFFICE TECHNICIAN, BUSINESS OFFICE TECHNICIAN-C) Atherosclerotic heart disease of [place] coronary artery without angina pectoris Cardiomyopathy DM type 2 (diabetes mellitus, type 2) Essential hypertension Hyperlipidemia NSTEMI (non-ST elevated myocardial infarction) Obesity Pericardial effusion Presence of stent in coronary artery (10/20/19) Shingles Spinal stenosis Home Medications folic acid 400 mcg tablet 0.4 mg PO DAILY supplement 10/19/19 [History Last Taken 09/08/21] metformin 1,000 mg tablet,extended release 24hr 1,000 mg PO DAILY diabetes 10/19/19 [History Last Taken 09/11/21 09:00] tamsulosin 0.4 mg capsule 0.4 mg PO QHS BPH 07/02/20 [History Last Taken 09/10/21 21:00] dulaglutide 1.5 mg/0.5 mL subcutaneous pen injector (Trulicity) 0.75 mg subcut TU diabetes 05/15/21 [History Last Taken 09/08/21 08:00] pravastatin 80 mg tablet 80 mg PO DAILY cholesterol 05/15/21 [History Last Taken 09/10/21 21:00] acetaminophen 500 mg tablet 1,000 mg PO Q6H PRN PRN Pain Score 1-3 #0 tabs 09/30/21 [Rx Last Taken Unknown] docusate sodium 100 mg capsule (Colace) 100 mg PO BID 10/29/21 [History Last Taken Unknown] krill oil 500 mg capsule 500 mg PO DAILY 10/29/21 [History Last Taken Unknown] mirabegron 25 mg tablet,extended release 24 hr 25 mg PO DAILY 10/29/21 [History Last Taken Unknown] potassium chloride 20 mEq tablet,extended release 20 meq PO DAILY 10/29/21 [History Last Taken Unknown] baclofen 10 mg tablet 10 mg PO TID PRN Muscle pain/spasm #90 tabs 11/02/21 [Rx Last Taken Unknown] gabapentin 600 mg tablet 600 mg PO TID #90 tabs 11/02/21 [Rx Last Taken Unknown] hydrocodone-acetaminophen 5-325mg 5mg-325mg 1 tab PO TID 12/15/21 [History Last Taken Unknown] aspirin 81 mg tablet,delayed release (Adult Low Dose Aspirin) 81 mg PO DAILY 01/05/22 [History Last Taken Unknown] cholecalciferol (vitamin D3) 50 mcg (2,000 unit) capsule 50 mcg PO DAILY 01/28/22 [History Last Taken Unknown] insulin glargine 100 unit/mL (3 mL) subcutaneous pen (Basaglar KwikPen U-100 Insulin) 26 unit subcut BID diabetes 05/13/22 [History Last Taken Unknown] dulaglutide 0.75 mg/0.5 mL subcutaneous pen injector ([employer]ulicExperifun) 0.75 mg subcut QWEEK 05/25/22 [History Last Taken Unknown] mupirocin calcium 2 % topical cream 1 applic topical BID 05/25/22 [History Last Taken Unknown] naloxone 0.4 mg/0.4 mL injection, auto-injector 4 mg 05/25/22 [History Last Taken Unknown] oxybutynin 3.9 mg/24 hour transdermal 4 day patch mg 05/25/22 [History Last Taken Unknown] valacyclovir 1 gram tablet 1,000 mg PO BID 05/25/22 [History Last Taken Unknown] carvedilol 3.125 mg tablet 3.125 mg PO BIDCM #180 tabs 08/02/22 [Rx Last Taken Unknown] furosemide 40 mg tablet 40 mg PO .COMPLEX #270 tabs 08/02/22 [Rx Last Taken Unknown] clopidogrel 75 mg tablet See Rx Instructions .Route .COMPLEX #90 TABLETS 11/22/22 [Rx Last Taken Unknown] Allergy/AdvReac Type Severity Reaction Status Date / Time lisinopril AdvReac cough Verified 09/07/22 13:20 Surgical History (Reviewed 12/19/22 @ 17:49 by Erica Babb BUSINESS OFFICE TECHNICIAN, BUSINESS OFFICE TECHNICIAN-C) H/O knee surgery History of back surgery History of left heart catheterization (10/20/19) Presence of coronary angioplasty implant and graft (~10/20/19) Social History (Reviewed 12/19/22 @ 17:49 by Erica Babb BUSINESS OFFICE TECHNICIAN, BUSINESS OFFICE TECHNICIAN-C) household members: spouse Smoking Status: Former smoker how long ago did patient quit smokin+ years used cigars ocationally alcohol intake: current alcohol intake frequency: a few times a month Alcohol type: beer substance use type: does not use caffeine: No ROS Constitutional Constitutional: Denies chills or fever(s) Eyes Eyes: Reports other Details: He has puffiness under his eyes bilaterally. ; Denies change in vision ENT HEENT: Reports none Cardiovascular Cardiovascular: Denies chest pain, dyspnea or nausea Respiratory/Chest Respiratory/Chest: Denies cough or shortness of breath at rest Gastrointestinal Gastrointestinal: Reports none Musculoskeletal Musculoskeletal: Reports as per HPI Integumentary Integumentary: Reports wounds Neurologic Neurologic: Reports none Psychiatric Psychiatric: Reports none Endocrine Endocrinology: Reports none Vital Signs Vital Signs Vital Signs: 12/13/22 09:48 Temperature 96.7 F L Temperature Source Temporal Pulse Rate 78 Blood Pressure 134/68 H Blood Pressure Mean 90 Blood Pressure Source Monitor Physical Exam Const alert, oriented x3 and no apparent distress General Appearance: cooperative HEENT normocephalic Head and Scalp: atraumatic Eyes Eyes Narrative: He has some edema under his eyes bilaterally. General Eye: normal appearance of both eyes Neck full ROM Resp normal respiratory effort, normal air movement and clear to auscultation bilaterally Effort and Inspection: able to speak in complete sentences Cardio regular rate and regular rhythm GI soft to palpation and non-tender Back/Spine normal ROM Extremity normal capillary refill Skin Wound Narrative: Right distal anterior leg with superficial wound that is pink. Neuro oriented x3 and moves all extremities Psych mental status grossly normal, thought process normal and cooperative Debridement Note Debridement Note Wound debrided: distal anterior leg wound Laterality: Right Wound Grade/Stage: Stage II Type of Debridement: Excisional debridement Anesthesia Used: 5% Lidocaine Gel Depth: Down to and including healthy tissue and in the subcutaneous layer Percentage of wound debrided: 100 Instrument Used: 3mm curette Tissue Removed: Devitalized tissue and slough Severity: Limited To Skin Breakdown Amount of bleeding with debridement: Mild Bleeding Controlled with: Pressure and Compression and gauze Patient tolerated procedure: Patient tolerated procedure well Post-Debridement Measurements and Additional Note: Post-Debridement Measurements/Treatment - Nurse 1 - General Ulcer Assessment Start: 12/13/22 09:32 Freq: Status: Active Protocol: [place] Activity Type Activity Date Activity User E-sign Co-sign Detail Recorded Client Recorded Date Recorded By Document 12/13/22 09:48 KECIA [id number] 12/13/22 10:00 KECIA 12/13/22 09:48 - Today's Visit Information Type of service Follow-up Visit (Physician/[employer] ARTISTIC DIRECTOR ) Arrival Mode Ambulatory, Walker Patient Identification Verified (Name & Yes ) Patient Requires Transmission-Based No Precautions Safety Precautions NA Vital Signs Temperature (97.8 F-99.1 F) 96.7 F L Temperature Source Temporal Pulse Rate (60-100) 78 Pulse Location Monitor Blood Pressure (90/60-120/80) 134/68 H Blood Pressure Mean 90 Source Monitor History Since Last Visit- (Skip if this is Patient's initial visit) Have you changed medications since your No last visit? Any new allergies or adverse reactions No Had a fall/change in ADL's that may No increase risk of falls Signs or symptoms of abuse and/or No neglect since last visit Have you been in the hospital since your No last visit? Has dressing in place as prescribed Yes Has compression in place as prescribed Yes Has offloadiing in place as prescribed N/A Experienced any changes in pain level or No management Left Footwear Regular Shoe Right Footwear Regular Shoe Pain Scale: 0-10 Numeric Is Patient Pain Free? Yes [facility] Nurse 1 - General Ulcer Measurement Start: 12/13/22 09:32 Freq: Status: Active Protocol: Activity Type Activity Date Activity User E-sign Co-sign Detail Recorded Client Recorded Date Recorded By Document 12/13/22 09:48 KECIA [id number] 12/13/22 10:00 KECIA 12/13/22 09:48 Wound Center Nurse 1 #3 Right Jones cluster -Combined with other wound No -Current Size (cm) - Length 1.4 -Current Size (cm) - Width 2.5 -Current Size (cm) - Depth 0.1 -Total Square Cm 3.50 -Photo Taken Yes -Tunneling No -Undermining/Tunneling No -Circular Undermining No -Change in Wound Grade/Stage No -Exudate Amt Medium -Exudate Type Serosanguineous -Wound Margin Distinct, Outline Attached -Granulation Amt Large (67-100%) -Granulation Quality [place] -Slough/Fibrin Yes -Necrosis Amt Small (1-33%) -Necrotic Tissue Type Adherent Slough -Structure Exposed N/A -Texture (Nina-wound Skin Appearance) No Abnormality, Assessed -Moisture (Nina-wound Skin Appearance) No Abnormality, Assessed -Color (Nina-wound Skin Appearance) No Abnormality, Assessed -Temperature (Nina-wound Skin No Abnormality Appearance) (Pt Warm) -Tenderness on Palpation (Nina-wound No Skin Appearance) -Ulcer Cleansing Rinsed/ Irrigated with Saline -Foul Odor after Cleansing No -Anesthetic Used 4% Lidocaine Solution Right Calf (cm) 38 Right Ankle (cm) 24.2 WC - Nurse 2 - General Ulcer CM Notes Start: 12/13/22 09:32 Freq: Status: Active Protocol: Activity Type Activity Date Activity User E-sign Co-sign Detail Recorded Client Recorded Date Recorded By Document 12/13/22 10:22 RONALDO [id number] 12/13/22 10:26 RONALDO 12/13/22 10:22 Wound Center Nurse 2 #3 Right Jones cluster -Time 10:22 -Correct Patient Yes -Correct Side, Site, Position Yes -Correct Procedure Yes -Procedure Performed Yes -Type of Procedure Debridement -Clinical Debridement Subcutaneous -Tissue Removed Subcutaneous -Post Debridement (cm) - Length 1.5 -Post Debridement (cm) - Width 2.8 -Post Debridement (cm) - Depth 0.1 -Total Square (Post) (cm) 4.20 -Area of Debridement (cm) - Length 1.5 -Area of Debridement (cm) - Width 2.8 -Total Square (Area) (cm) 4.20 -Tunneling No -Undermining/Tunneling No -Circular Undermining No -Wound/Ulcer Outcome Not Healed -Ulcer Cleansing Rinsed/ Irrigated with Saline -Foul Odor after Cleansing No -Bioengineered Tissue No -Bleeding Controlled with Pressure -Treatment Response Procedure Tolerated Well -Offloading No -Debridement - Subq, 1st 20sq cm Yes Pain Scale: 0-10 Numeric Is Patient Pain Free? Yes - Nurse 3 - General Ulcer D/C NN Start: 12/13/22 09:32 Freq: Status: Active Protocol: Activity Type Activity Date Activity User E-sign Co-sign Detail Recorded Client Recorded Date Recorded By Document 12/13/22 10:36 [facility] [id number] 12/13/22 10:37 [facility] 12/13/22 10:36 Wound Care Center Nurse 3 #3 Right Jones cluster -Ulcer Cleansing Rinsed/ Irrigated with Saline -Foul Odor after Cleansing No -Primary Dressing Applied C Hydrogel ($), Mepilex Border -Mepilex Border 1 Treatment Response Procedure Tolerated Well Pain Scale: 0-10 Numeric Is Patient Pain Free? Yes WC - Visit Discharge Discharge Condition Stable Ambulatory Status Ambulatory, Walker Transportation Private Auto Accompanied by Charges/Coding Visit Charges Office Visits / Consults: 96926 OV L3 Est (25 modifier) Procedures Integumentary 111xxx-113xx: [id number] Raquel subq tissue 20 sq cm/< Assessment/Plan Assessment/Plan (1) Wound of right lower extremity: CODE(S): S81.801A - Unspecified open wound, right lower leg, initial encounter (2) Diabetic ulcer of right lower leg: CODE(S): E11.622 - Type 2 diabetes mellitus with other skin ulcer; L97.919 - Non-pressure chronic ulcer of unspecified part of right lower leg with unspecified severity (3) Edema: CODE(S): R60.9 - Edema, unspecified (4) Diabetic neuropathy: CODE(S): E11.40 - Type 2 diabetes mellitus with diabetic neuropathy, unspecified (5) Diabetes mellitus: CODE(S): E11.9 - Type 2 diabetes mellitus without complications PLAN: Plan Patient evaluated at the wound healing center today. He has a wound on his right distal anterior leg that occurred after he scratched himself 4 days ago. Wound care - Collagen hydrogel topped with [place] SAP dressin daily after washing with soap and water. Compression - Continue Circaid compression stockings. His first layer stocking has stretched out. He can go to [email or web address] and purchase a 10 mmHg stocking over the counter to replace this and then use his circaid on top of that. Measurements taken today and given to the patient. He has been doing a good job wearing his compression. Follow up one week.
[2022-12-20 10:16] VITALS: BP 111/52; PULSE 71; RESP 22; TEMP 36.1
--- NOTE | 2022-12-20 13:15 | PCM.WC.PN ---
History of Present Illness Date of Service: 12/20/22 Chief Complaint: Right anterior leg wound History of Wound: Patient is a 77 year old male presents with a wound on his right anterior leg. He states that he scratched it 4 days ago and it has gotten worse. He has concerns that it will get worse like his previous ulcer. He has been wearing his Circaid compression stockings which have really helped with his edema. He was recently seen at the wound center for a non healing ulcer on his left leg. He has been placing left over silver dressing from his previous ulcer. Today he denies any fever, chills, nausea or vomiting. Progress of Wound: Right distal anterior leg wound is healed with fragile epithelial tissue. Edema is well controlled and is +1. He has been doing a good job wearing his compression stockings. Objective Data Objective Data Vital Signs: Vital Signs Temp Pulse Resp BP 96.9 F L 71 22 H 111/52 L 12/20/22 10:16 12/20/22 10:16 12/20/22 10:16 12/20/22 10:16 Charges/Coding Visit Charges Office Visits / Consults: 04298 OV L3 Est Physical Exam Const alert, oriented x3 and no apparent distress General Appearance: cooperative HEENT normocephalic Head and Scalp: atraumatic Eyes General Eye: normal appearance of both eyes Neck full ROM Resp normal respiratory effort, normal air movement and clear to auscultation bilaterally Effort and Inspection: able to speak in complete sentences Cardio regular rate and regular rhythm GI soft to palpation and non-tender Back/Spine normal ROM Extremity normal capillary refill Skin Wound Narrative: Right distal anterior leg with fragile epithelial skin over the superficial wound Neuro oriented x3 and moves all extremities Psych mental status grossly normal, thought process normal and cooperative Debridement Note Debridement Note No debridement was completed: No debridement was completed today Post-Debridement Measurements and Additional Note: Post-Debridement Measurements/Treatment JAG - Nurse 1 - General Ulcer Assessment Start: 12/13/22 09:32 Freq: Status: Active Protocol: [place] Activity Type Activity Date Activity User E-sign Co-sign Detail Recorded Client Recorded Date Recorded By Document 12/13/22 09:48 AK [id number] 12/13/22 10:00 AK Document 12/20/22 10:16 DL [id number] 12/20/22 10:21 DL 12/13/22 12/20/22 09:48 10:16 - Today's Visit Information Type of service Follow-up Visit Follow-up Visit (Physician/AIRCRAFT ELECTRICIAN (Physician/AIRCRAFT ELECTRICIAN ) ) Arrival Mode Ambulatory, Ambulatory, Walker Walker Transfer Assistance None Patient Identification Verified (Name & Yes Yes ) Patient Requires Transmission-Based No No Precautions Safety Precautions NA Finger Stick Blood Sugar(mg/dl) (if 143 indicated): Blood Sugar Stated by Patient Vital Signs Temperature (97.8 F-99.1 F) 96.7 F L 96.9 F L Temperature Source Temporal Temporal Pulse Rate (60-100) 78 71 Pulse Location Monitor Monitor Respiratory Rate (12-18) 22 H Respiratory rate source Observation Blood Pressure (90/60-120/80) 134/68 H 111/52 L Blood Pressure Mean (mm Hg) 90 71 Source Monitor Monitor History Since Last Visit- (Skip if this is Patient's initial visit) Have you changed medications since your No No last visit? Any new allergies or adverse reactions No No Had a fall/change in ADL's that may No No increase risk of falls Signs or symptoms of abuse and/or No No neglect since last visit Have you been in the hospital since your No No last visit? Has dressing in place as prescribed Yes Yes Has compression in place as prescribed Yes Yes Has offloadiing in place as prescribed N/A N/A Experienced any changes in pain level or No No management Left Footwear Regular Shoe Right Footwear Regular Shoe Pain Scale: 0-10 Numeric Is Patient Pain Free? Yes Yes - Nurse 1 - General Ulcer Measurement Start: 12/13/22 09:32 Freq: Status: Active Protocol: Activity Type Activity Date Activity User E-sign Co-sign Detail Recorded Client Recorded Date Recorded By Document 12/13/22 09:48 AK [id number] 12/13/22 10:00 AK Document 12/20/22 10:16 DL [id number] 12/20/22 10:21 DL 12/13/22 12/20/22 09:48 10:16 Wound Center Nurse 1 #6 R lower leg cluster -Combined with other wound No -Current Size (cm) - Length 1.4 0.1 -Current Size (cm) - Width 2.5 0.1 -Current Size (cm) - Depth 0.1 0.1 -Total Square Cm 3.50 0.01 -Photo Taken Yes Yes -Tunneling No -Undermining/Tunneling No -Circular Undermining No -Change in Wound Grade/Stage No -Exudate Amt Medium None Present -Exudate Type Serosanguineous -Wound Margin Distinct, Flat & Intact Outline Attached -Granulation Amt Large (67-100%) Large (67-100%) -Granulation Quality [place] -Slough/Fibrin Yes -Necrosis Amt Small (1-33%) None Present (0 %) -Necrotic Tissue Type Adherent Slough -Structure Exposed N/A N/A -Texture (Nina-wound Skin Appearance) No Abnormality, Scarring Assessed -Moisture (Nina-wound Skin Appearance) No Abnormality, Dry/Scaly Assessed -Color (Nina-wound Skin Appearance) No Abnormality, No Abnormality Assessed -Temperature (Nina-wound Skin No Abnormality No Abnormality Appearance) (Pt Warm) (Pt Warm) -Tenderness on Palpation (Nina-wound No No Skin Appearance) -Ulcer Cleansing Rinsed/ Rinsed/ Irrigated with Irrigated with Saline Saline -Foul Odor after Cleansing No No -Anesthetic Used 4% Lidocaine 5% Lidocaine Solution Gel Right Calf (cm) 38 38.7 Right Ankle (cm) 24.2 25.9 WC - Nurse 2 - General Ulcer CM Notes Start: 12/13/22 09:32 Freq: Status: Active Protocol: Activity Type Activity Date Activity User E-sign Co-sign Detail Recorded Client Recorded Date Recorded By Document 12/13/22 10:22 [id number] 12/13/22 10:26 Document 12/20/22 11:09 [id number] 12/20/22 11:10 12/13/22 12/20/22 10:22 11:09 Wound Center Nurse 2 #6 R lower leg cluster -Time 10:22 11:09 -Correct Patient Yes No -Correct Side, Site, Position Yes No -Correct Procedure Yes No -Procedure Performed Yes No -Type of Procedure Debridement -Clinical Debridement Subcutaneous -Tissue Removed Subcutaneous -Post Debridement (cm) - Length 1.5 -Post Debridement (cm) - Width 2.8 -Post Debridement (cm) - Depth 0.1 -Total Square (Post) (cm) 4.20 -Area of Debridement (cm) - Length 1.5 -Area of Debridement (cm) - Width 2.8 -Total Square (Area) (cm) 4.20 -Tunneling No -Undermining/Tunneling No -Circular Undermining No -Wound/Ulcer Outcome Not Healed Not Healed -Ulcer Cleansing Rinsed/ Irrigated with Saline -Foul Odor after Cleansing No -Bioengineered Tissue No -Bleeding Controlled with Pressure -Treatment Response Procedure Tolerated Well -Offloading No -Debridement - Subq, 1st 20sq cm Yes Pain Scale: 0-10 Numeric Is Patient Pain Free? Yes Yes - Nurse 3 - General Ulcer D/C NN Start: 12/13/22 09:32 Freq: Status: Active Protocol: Activity Type Activity Date Activity User E-sign Co-sign Detail Recorded Client Recorded Date Recorded By Document 12/13/22 10:36 [facility] [id number] 12/13/22 10:37 BM Document 12/20/22 10:27 DL [id number] 12/20/22 10:29 DL 12/13/22 12/20/22 10:36 10:27 Wound Care Center Nurse 3 #6 R lower leg cluster -Ulcer Cleansing Rinsed/ Irrigated with Saline -Foul Odor after Cleansing No No -Primary Dressing Applied C Hydrogel ($), Mepilex Border Mepilex Border -Other Dressing Theraskin -Primary Dressing Covered/Secured with Dry Gauze -Mepilex Border 1 1 Left -Compression Wrap Juan Wrap Treatment Response Procedure Procedure Tolerated Well Tolerated Well Pain Scale: 0-10 Numeric Is Patient Pain Free? Yes Yes - Visit Discharge Discharge Condition Stable Stable Ambulatory Status Ambulatory, Ambulatory Walker Transportation Private Auto Private Auto Accompanied by Facility Type Home Health Orders Sent Yes Assessment/Plan Assessment/Plan (1) Wound of right lower extremity: CODE(S): S81.801A - Unspecified open wound, right lower leg, initial encounter (2) Diabetic ulcer of right lower leg: CODE(S): E11.622 - Type 2 diabetes mellitus with other skin ulcer; L97.919 - Non-pressure chronic ulcer of unspecified part of right lower leg with unspecified severity (3) Edema: CODE(S): R60.9 - Edema, unspecified (4) Diabetic neuropathy: CODE(S): E11.40 - Type 2 diabetes mellitus with diabetic neuropathy, unspecified (5) Diabetes mellitus: CODE(S): E11.9 - Type 2 diabetes mellitus without complications PLAN: Plan Patient evaluated at the wound healing center today. The wound on his right distal anterior leg has fragile epithelial tissue present. Wound care - Adaptic topped with [place] SAP dressing every other day after washing with soap and water. Compression - Continue Circaid compression stockings. His first layer stocking has stretched out. He can go to [facility] and purchase a 10 mmHg stocking over the counter to replace this and then use his circaid on top of that. Measurements taken today and given to the patient. He has been doing a good job wearing his compression. Follow up one week.
[2022-12-27 10:39] VITALS: BP 130/72; PULSE 66; TEMP 35.8
--- NOTE | 2022-12-27 12:46 | PCM.WC.PN ---
History of Present Illness Date of Service: 12/27/22 Chief Complaint: Right anterior leg wound History of Wound: Patient is a 77 year old male presents with a wound on his right anterior leg. He states that he scratched it 4 days ago and it has gotten worse. He has concerns that it will get worse like his previous ulcer. He has been wearing his Circaid compression stockings which have really helped with his edema. He was recently seen at the wound center for a non healing ulcer on his left leg. He has been placing left over silver dressing from his previous ulcer. Today he denies any fever, chills, nausea or vomiting. Progress of Wound: Right distal anterior leg wound is healed today. His edema is minimal now that he is consistently wearing his compression stockings. Objective Data Objective Data Vital Signs: Vital Signs Temp Pulse Resp BP 96.4 F L 66 22 H 130/72 H 12/27/22 10:39 12/27/22 10:39 12/20/22 10:16 12/27/22 10:39 Charges/Coding Visit Charges Office Visits / Consults: [id number] OV L3 Est Physical Exam Const alert, oriented x3 and no apparent distress General Appearance: cooperative HEENT normocephalic Head and Scalp: atraumatic Eyes General Eye: normal appearance of both eyes Neck full ROM Resp normal respiratory effort, normal air movement and clear to auscultation bilaterally Effort and Inspection: able to speak in complete sentences Cardio regular rate and regular rhythm GI soft to palpation and non-tender Back/Spine normal ROM Extremity normal capillary refill Skin Wound Narrative: Right distal anterior leg wound is healed. Neuro oriented x3 and moves all extremities Psych mental status grossly normal, thought process normal and cooperative Debridement Note Debridement Note No debridement was completed: No debridement was completed today Post-Debridement Measurements and Additional Note: Post-Debridement Measurements/Treatment JAG - Nurse 1 - General Ulcer Assessment Start: 12/13/22 09:32 Freq: Status: Active Protocol: [place] Activity Type Activity Date Activity User E-sign Co-sign Detail Recorded Client Recorded Date Recorded By Document 12/13/22 09:48 AK [id number] 12/13/22 10:00 AK Document 12/20/22 10:16 DL [id number] 12/20/22 10:21 DL Document 12/27/22 10:39 AK [id number] 12/27/22 10:44 AK 12/13/22 12/20/22 12/27/22 09:48 10:16 10:39 - Today's Visit Information Type of service Follow-up Visit Follow-up Visit Follow-up Visit (Physician/PE MANAGER (Physician/PE MANAGER (Physician/PE MANAGER ) ) ) Arrival Mode Ambulatory, Ambulatory, Ambulatory Walker Walker Transfer Assistance None Patient Identification Verified (Name & Yes Yes Yes ) Patient Requires Transmission-Based No No No Precautions Safety Precautions NA NA Finger Stick Blood Sugar(mg/dl) (if 143 indicated): Blood Sugar Stated by Patient Vital Signs Temperature (97.8 F-99.1 F) 96.7 F L 96.9 F L 96.4 F L Temperature Source Temporal Temporal Temporal Pulse Rate (60-100) 78 71 66 Pulse Location Monitor Monitor Monitor Respiratory Rate (12-18) 22 H Respiratory rate source Observation Blood Pressure (90/60-120/80) 134/68 H 111/52 L 130/72 H Blood Pressure Mean (mm Hg) 90 71 91 Source Monitor Monitor Monitor History Since Last Visit- (Skip if this is Patient's initial visit) Have you changed medications since your No No No last visit? Any new allergies or adverse reactions No No No Had a fall/change in ADL's that may No No No increase risk of falls Signs or symptoms of abuse and/or No No No neglect since last visit Have you been in the hospital since your No No No last visit? Has dressing in place as prescribed Yes Yes Yes Has compression in place as prescribed Yes Yes Yes Has offloadiing in place as prescribed N/A N/A N/A Experienced any changes in pain level or No No No management Left Footwear Regular Shoe Regular Shoe Right Footwear Regular Shoe Regular Shoe Pain Scale: 0-10 Numeric Is Patient Pain Free? Yes Yes Yes - Nurse 1 - General Ulcer Measurement Start: 12/13/22 09:32 Freq: Status: Active Protocol: Activity Type Activity Date Activity User E-sign Co-sign Detail Recorded Client Recorded Date Recorded By Document 12/13/22 09:48 AK [id number] 12/13/22 10:00 AK Document 12/20/22 10:16 DL [id number] 12/20/22 10:21 DL Document 12/27/22 10:39 AK [id number] 12/27/22 10:44 AK 12/13/22 12/20/22 12/27/22 09:48 10:16 10:39 Wound Center Nurse 1 #6 R lower leg cluster -Combined with other wound No -Current Size (cm) - Length 1.4 0.1 -Current Size (cm) - Width 2.5 0.1 -Current Size (cm) - Depth 0.1 0.1 -Total Square Cm 3.50 0.01 -Photo Taken Yes Yes -Tunneling No -Undermining/Tunneling No -Circular Undermining No -Change in Wound Grade/Stage No -Exudate Amt Medium None Present -Exudate Type Serosanguineous -Wound Margin Distinct, Flat & Intact Outline Attached -Granulation Amt Large (67-100%) Large (67-100%) -Granulation Quality [place] -Slough/Fibrin Yes -Necrosis Amt Small (1-33%) None Present (0 %) -Necrotic Tissue Type Adherent Slough -Structure Exposed N/A N/A -Texture (Nina-wound Skin Appearance) No Abnormality, Scarring Assessed -Moisture (Nina-wound Skin Appearance) No Abnormality, Dry/Scaly Assessed -Color (Nina-wound Skin Appearance) No Abnormality, No Abnormality Assessed -Temperature (Nina-wound Skin No Abnormality No Abnormality Appearance) (Pt Warm) (Pt Warm) -Tenderness on Palpation (Nina-wound No No Skin Appearance) -Ulcer Cleansing Rinsed/ Rinsed/ Irrigated with Irrigated with Saline Saline -Foul Odor after Cleansing No No -Anesthetic Used 4% Lidocaine 5% Lidocaine Solution Gel Right Calf (cm) 38 38.7 39 Right Ankle (cm) 24.2 25.9 26.2 WC - Nurse 2 - General Ulcer CM Notes Start: 12/13/22 09:32 Freq: Status: Active Protocol: Activity Type Activity Date Activity User E-sign Co-sign Detail Recorded Client Recorded Date Recorded By Document 12/13/22 10:22 RONALDO [id number] 12/13/22 10:26 Document 12/20/22 11:09 [id number] 12/20/22 11:10 Document 12/27/22 10:52 [id number] 12/27/22 10:53 JF 12/13/22 12/20/22 12/27/22 10:22 11:09 10:52 Wound Center Nurse 2 #6 R lower leg cluster -Time 10: 11:09 -Correct Patient Yes No -Correct Side, Site, Position Yes No -Correct Procedure Yes No -Procedure Performed Yes No -Type of Procedure Debridement -Clinical Debridement Subcutaneous -Tissue Removed Subcutaneous -Post Debridement (cm) - Length 1.5 -Post Debridement (cm) - Width 2.8 -Post Debridement (cm) - Depth 0.1 -Total Square (Post) (cm) 4.20 -Area of Debridement (cm) - Length 1.5 -Area of Debridement (cm) - Width 2.8 -Total Square (Area) (cm) 4.20 -Tunneling No -Undermining/Tunneling No -Circular Undermining No -Wound/Ulcer Outcome Not Healed Not Healed -Ulcer Cleansing Rinsed/ Irrigated with Saline -Foul Odor after Cleansing No -Bioengineered Tissue No -Bleeding Controlled with Pressure -Treatment Response Procedure Tolerated Well -Offloading No -Debridement - Subq, 1st 20sq cm Yes Pain Scale: 0-10 Numeric Is Patient Pain Free? Yes Yes Yes WC - Nurse 3 - General Ulcer D/C NN Start: 12/13/22 09:32 Freq: Status: Active Protocol: Activity Type Activity Date Activity User E-sign Co-sign Detail Recorded Client Recorded Date Recorded By Document 12/13/22 10:36 [facility] [id number] 12/13/22 10:37 [facility] Document 12/20/22 10:27 DL [id number] 12/20/22 10:29 DL Document 12/27/22 10:54 [id number] 12/27/22 10:55 12/13/22 12/20/22 12/27/22 10:36 10:27 10:54 Wound Care Center Nurse 3 #6 R lower leg cluster -Ulcer Cleansing Rinsed/ Irrigated with Saline -Foul Odor after Cleansing No No -Primary Dressing Applied C Hydrogel ($), Mepilex Border Mepilex Border -Other Dressing Theraskin -Primary Dressing Covered/Secured with Dry Gauze -Mepilex Border 1 1 Right -Stockings Yes Left -Compression Wrap Juan Wrap Treatment Response Procedure Procedure Tolerated Well Tolerated Well Pain Scale: 0-10 Numeric Is Patient Pain Free? Yes Yes Yes WC - Visit Discharge Discharge Condition Stable Stable Stable Ambulatory Status Ambulatory, Ambulatory Ambulatory Walker Transportation Private Auto Private Auto Private Auto Accompanied by Medication Reconcilliation completed & Yes provided to patient/care provider Clinical Summary of Care Provided Yes Facility Type Home Health Orders Sent Yes Assessment/Plan Assessment/Plan (1) Wound of right lower extremity: CODE(S): S81.801A - Unspecified open wound, right lower leg, initial encounter (2) Diabetic ulcer of right lower leg: CODE(S): E11.622 - Type 2 diabetes mellitus with other skin ulcer; L97.919 - Non-pressure chronic ulcer of unspecified part of right lower leg with unspecified severity (3) Edema: CODE(S): R60.9 - Edema, unspecified (4) Diabetic neuropathy: CODE(S): E11.40 - Type 2 diabetes mellitus with diabetic neuropathy, unspecified (5) Diabetes mellitus: CODE(S): E11.9 - Type 2 diabetes mellitus without complications PLAN: Plan Patient evaluated at the wound healing center today. The wound on his right distal anterior leg is healed. Encouraged to massage lotion into this area to help soften the scarring. Compression - Continue Circaid compression stockings. He has been doing a good job wearing his compression. Follow up as needed.
== END 2022-12-27 16:16 | disposition home or self-care (01) ==
LOC: WC 10:45
PROVIDERS: PCP Family Medicine; Visit Provider Nurse Practitioner Family
DX: E11.622 Type 2 diabetes mellitus with other skin ulcer (principal); L97.911 Non-pressure chronic ulcer of unspecified part of right lower leg limited to breakdown of skin; I42.9 Cardiomyopathy, unspecified; E11.40 Type 2 diabetes mellitus with diabetic neuropathy, unspecified; Z79.4 Long term (current) use of insulin; I25.10 Atherosclerotic heart disease of native coronary artery without angina pectoris; I10 Essential (primary) hypertension; Z87.891 Personal history of nicotine dependence; E78.5 Hyperlipidemia, unspecified; R60.9 Edema, unspecified; S81.801A Unspecified open wound, right lower leg, initial encounter; I25.2 Old myocardial infarction
CPT/HCPCS: 11042; 99213; G0463

== ENCOUNTER 2023-01-17 12:16 | Emergency (ER) | payer MEDICARE, OTHER, SELFPAY ==
[2021-02-27 07:06] VITALS: BMI 40.4
[2023-01-17] VITALS (10 sets, daily range): BP systolic 94–127; BP diastolic 59–85; PULSE 69–78; RESP 12–19; TEMP 36.5–36.9; O2SAT 81–98; BMI 36.8
--- NOTE | 2023-01-17 12:57 | EDS_ITS ---
HPI History of Present Illness Chief Complaint: Shortness of Breath Informant: patient and spouse/S.O. Narrative Narrative: Patient primary complaint today reports referral in from PCP due to hyperglycemia. Sugars been elevated in the 300s here in the last few days. Typically in the 200s. He is on Trulicity along with insulin. He takes insulin glargine long-acting 24 units twice daily and he is on short acting 8 units before meals with no sliding scale. He took his medications this morning with breakfast did not eat lunch 11:00 sugars in the 350s he contacted his PCP was told take additional 6 units short acting call back at 1:00. He called back sti ll elevated therefore sent here. Of note being managed for CHF with recent adjustments of medications. Managed outpatient PCP increased currently his Lasix at 40 mg twice daily he had metolazone added approximately 6 days ago at 5 mg. He is lost 10 pounds of weight since the end of last month. No orthopnea. He wears a sleep mask at night. Denies any recent steroid use. He denies any nausea or vomiting. [facility] Medical History Atherosclerotic heart disease of telida coronary artery without angina pectoris Cardiomyopathy DM type 2 (diabetes mellitus, type 2) Essential hypertension Hyperlipidemia NSTEMI (non-ST elevated myocardial infarction) Obesity Pericardial effusion Presence of stent in coronary artery (10/20/19) Shingles Spinal stenosis Home Medications folic acid 400 mcg tablet 0.4 mg PO DAILY supplement 10/19/19 [History Last Taken 09/08/21] tamsulosin 0.4 mg capsule 0.4 mg PO QHS BPH 07/02/20 [History Last Taken 09/10/21 21:00] pravastatin 80 mg tablet 80 mg PO DAILY cholesterol 05/15/21 [History Last Taken 09/10/21 21:00] acetaminophen 500 mg tablet 1,000 mg PO Q6H PRN PRN Pain Score 1-3 #0 tabs 09/30/21 [Rx Last Taken Unknown] docusate sodium 100 mg capsule (Colace) 100 mg PO BID 10/29/21 [History Last Taken Unknown] krill oil 500 mg capsule 500 mg PO DAILY 10/29/21 [History Last Taken Unknown] mirabegron 25 mg tablet,extended release 24 hr 25 mg PO DAILY 10/29/21 [History Last Taken Unknown] potassium chloride 20 mEq tablet,extended release 20 meq PO DAILY 10/29/21 [History Last Taken Unknown] baclofen 10 mg tablet 10 mg PO TID PRN Muscle pain/spasm #90 tabs 11/02/21 [Rx Last Taken Unknown] aspirin 81 mg tablet,delayed release (Adult Low Dose Aspirin) 81 mg PO DAILY 01/05/22 [History Last Taken Unknown] cholecalciferol (vitamin D3) 50 mcg (2,000 unit) capsule 50 mcg PO DAILY 01/28/22 [History Last Taken Unknown] dulaglutide 0.75 mg/0.5 mL subcutaneous pen injector (Trulicity) 0.75 mg subcut QWEEK 05/25/22 [History Last Taken Unknown] naloxone 0.4 mg/0.4 mL injection, auto-injector 4 mg 05/25/22 [History Last Taken Unknown] valacyclovir 1 gram tablet 1,000 mg PO BID 05/25/22 [History Last Taken Unknown] carvedilol 3.125 mg tablet 3.125 mg PO BIDCM #180 tabs 08/02/22 [Rx Last Taken Unknown] clopidogrel 75 mg tablet See Rx Instructions .Route .COMPLEX #90 TABLETS 11/22/22 [Rx Last Taken Unknown] nitroglycerin 0.4 mg sublingual tablet 0.4 mg sublingual Q5-15M PRN 01/05/23 [History Last Taken Unknown] furosemide 40 mg tablet 40 mg PO BID #270 tabs 01/11/23 [Rx Last Taken Unknown] metolazone 5 mg tablet 5 mg PO DAILY 01/11/23 [History Last Taken Unknown] gabapentin 600 mg tablet 600 mg PO .4xday 01/12/23 [History Last Taken Unknown] hydrocodone-acetaminophen 5-325mg 5mg-325mg 1 tab PO BID 01/12/23 [History Last Taken Unknown] insulin aspart U-100 100 unit/mL subcutaneous solution (Novolog U-100 Insulin aspart) 8 unit subcut TID 01/12/23 [History Last Taken Unknown] insulin glargine 100 unit/mL (3 mL) subcutaneous pen (Basaglar KwikPen U-100 Insulin) 24 unit subcut BID diabetes 01/12/23 [History Last Taken Unknown] Allergy/AdvReac Type Severity Reaction Status Date / Time lisinopril AdvReac cough Verified 01/17/23 12:42 Surgical History H/O knee surgery History of back surgery History of left heart catheterization (10/20/19) Presence of coronary angioplasty implant and graft (~10/20/19) Social History household members: spouse Smoking Status: Former smoker how long ago did patient quit smokin+ years used cigars ocationally alcohol intake: current alcohol intake frequency: a few times a month Alcohol type: beer substance use type: does not use caffeine: No ROS ROS ED Constitutional Constitutional ED: Denies chills, fever(s) or sweats Eyes Eyes: Denies change in vision ENT ENT ED: Denies dysphagia or sore throat Cardiovascular Cardiovascular: Denies chest pain, leg edema, palpitations or racing heartbeat Respiratory/Chest Respiratory/Chest: Reports dyspnea; Denies cough or dyspnea on exertion Gastrointestinal Gastrointestinal: Denies abdominal pain, diarrhea, nausea or vomiting Genitourinary Genitourinary ED: Denies dysuria, hematuria or urinary frequency Musculoskeletal Musculoskeletal: Denies back pain, extremity pain or neck pain Integumentary Denies rash or wounds Neurologic Neurologic: Denies headache(s), paresthesias or weakness EXAM Physical Exam Const Vital Signs: 01/17/23 12:17 01/17/23 12:43 01/17/23 12:44 Temperature 97.9 F 98.2 F Temperature Source Temporal Oral Pulse Rate 77 70 72 Respiratory Rate 16 15 13 Respiratory Effort Respiratory Depth Respiratory Pattern Blood Pressure 94/75 109/60 Blood Pressure Mean 81 76 Pulse Ox 94 97 97 Oxygen Delivery Method Room Air Room Air Room Air Oxygen Flow Rate (L/min) 01/17/23 12:45 01/17/23 13:28 01/17/23 13:48 Temperature 98.3 F Temperature Source Oral Pulse Rate 71 Respiratory Rate 15 Respiratory Effort Short of Breath Respiratory Depth Shallow Respiratory Pattern Normal Blood Pressure 117/85 H Blood Pressure Mean 95 Pulse Ox 96 81 Oxygen Delivery Method Room Air Room Air Room Air Oxygen Flow Rate (L/min) 01/17/23 13:48 01/17/23 14:34 01/17/23 15:11 Temperature 98.4 F 97.7 F L Temperature Source Oral Oral Pulse Rate 69 73 Respiratory Rate 12 15 Respiratory Effort Respiratory Depth Respiratory Pattern Blood Pressure 127/75 H 96/59 L Blood Pressure Mean 92 71 Pulse Ox 95 98 97 Oxygen Delivery Method Nasal Cannula Nasal Cannula Room Air Oxygen Flow Rate (L/min) 1.5 1.5 01/17/23 15:11 Temperature 97.7 F L Temperature Source Oral Pulse Rate 72 Respiratory Rate 15 Respiratory Effort Respiratory Depth Respiratory Pattern Blood Pressure 96/59 L Blood Pressure Mean 71 Pulse Ox 96 Oxygen Delivery Method Room Air Oxygen Flow Rate (L/min) Positive well nourished and well developed General Appearance ED: well developed and NAD HEENT Reports moist mucous membranes normocephalic and atraumatic Eyes PERRL, EOMs intact bilaterally and conjunctivae normal General Eye ED: Yes normal appearance of both eyes Neck no lymphadenopathy and supple General: Negative for tenderness Chest Wall Chest: Negative for tenderness Resp normal respiratory effort and normal air movement Effort and Inspection: symmetric chest movement; Negative for respiratory distress Cardio regular rate, regular rhythm and no murmurs Peripheral Pulses: pulses 2+ throughout GI normal to inspection, nondistended, normoactive bowel sounds and non-tender Palpation: Negative for guarding or rebound tenderness present Back/Spine no CVA tenderness and no thoracic nor lumbar tenderness Extremity normal to inspection Extremity Narrative: Minimal edema lower extremities. General Extremety ED: Yes edema; Negative for tenderness General Extremity: edema Neuro oriented x3, CN's II-XII intact bilaterally and no sensory deficits noted Sensorium / Orientation: awake and alert Skin no rashes or lesions noted and no wounds MDM MDM MDM Narrative Medical decision making narrative: Interventions / MDM: Differential diagnosis: Hyperglycemia, DKA, CHF Diagnosis considered but do not suspect: N/A My EKG interpretation: Sinus rate of 70, no ST changes. PVC noted. Imaging independently reviewed and interpreted by myself: 2 view chest x-ray: No pulmonary effusions or congestion. No infiltrates. No pneumothorax. External documents reviewed: N/A Test considered but not ordered:N/A ED course: Patient primary complaints sent in for hyperglycemia. Rule out DKA. Glucose 340 gap was normal therefore no DKA. Potassium 2.6 orally replaced likely due to increased diuretic use. Creatinine 2.4 up from 1.8 a month ago. Again on diuretics. He was given 15 units of short acting insulin, hour afterwards glucose down to 285 on his monitor. Should still improve as has not peaked. Due to his recent CHF and noted complaints of shortness of breath work- up initiated. There is no fluid overload labs being stable from a BNP. Chest x-ray is negative. Initial reported 81% pulse ox on room air is inconsistent with home his previous pulse ox. He was ambulated on room air 95 to 98%. I did reach out to his PCP, reported to me patient and see other report his glucose in the 500-600 range not the 300 range that he has on his monitor. Therefore he was sent in for this reason. There is no DKA he is updated. G lucose adjustments will be his long-acting to 30 units twice daily, 10 units 3 times daily before meals of short acting. We will hold his metolazone due to his creatinine, he will continue Lasix twice a day. Metolazone will be used as needed. Office will reach out to patient to be seen in 2 days for lab recheck. He will continue his potassium replacement at home as this also should improve as he is off metolazone. All his questions were answered. Re-evaluation: stable Disposition discussed with patient/family/significant other: Patient and significant other Case discussed with consulting clinician: PCP, Dr. Franklin Nguyen Lab Data Attestation: I reviewed the patient's lab results. Labs: Laboratory Results - last 24 hr 01/17/23 01/17/23 01/17/23 13:05 13:20 13:20 WBC 8.4 RBC 4.98 Hgb 16.2 Hct 46.8 MCV 94.0 MCH 32.5 H MCHC 34.6 RDW Std Deviation 50.3 H RDW Coeff of Susan 14.5 Plt Count 210 MPV 10.2 Immature Gran % (Auto) 0.800 Neut % (Auto) 74.3 H Lymph % (Auto) 12.8 L [place] % (Auto) 8.8 Eos % (Auto) 2.6 Baso % (Auto) 0.7 Absolute Neuts (auto) 6.2 Absolute Lymphs (auto) 1.08 Nucleated RBC % 0 Sodium 130 L Potassium 2.6 L* Chloride 85 L Carbon Dioxide 36.0 H Anion Gap 9 BUN 56 H Creatinine 2.42 H Estim Creat Clear Calc 23.95 Est GFR (MDRD) Af Amer 33 L Est GFR (MDRD) Non-Af 28 L BUN/Creatinine Ratio 23.1 H Glucose 340 H Calcium 9.5 Troponin I High Sens 58 B-Natriuretic Peptide POC Glucose 342 H 01/17/23 01/17/23 13:20 15:10 WBC RBC Hgb Hct MCV MCH MCHC RDW Std Deviation RDW Coeff of Susan Plt Count MPV Immature Gran % (Auto) Neut % (Auto) Lymph % (Auto) [place] % (Auto) Eos % (Auto) Baso % (Auto) Absolute Neuts (auto) Absolute Lymphs (auto) Nucleated RBC % Sodium Potassium Chloride Carbon Dioxide Anion Gap BUN Creatinine Estim Creat Clear Calc Est GFR (MDRD) Af Amer Est GFR (MDRD) Non-Af BUN/Creatinine Ratio Glucose Calcium Troponin I High Sens B-Natriuretic Peptide 92.6 POC Glucose 301 H Radiography Diagnostic Testing: Clinical Impression(s) from Imaging Studies Chest X-Ray 01/17/23 13:30 IMPRESSION: No acute pulmonary abnormality. Stable mild cardiomegaly. Electronically Signed: Wilmer Heller MD at 13:57 EDT , Discharge Plan Triage Chief Complaint: Shortness of Breath ED Provider: Lan Brown Dx/Rx/DC Orders Clinical Impression: Hyperglycemia, Acute on chronic renal insufficiency, CHF (congestive heart failure), Acute hypokalemia Instructions: High Blood Sugar (Hyperglycemia), ED Heart Failure, Congestive (CHF), ED Renal Insufficiency Prescriptions: No Action tamsulosin 0.4 mg capsule 0.4 mg PO QHS Thaddeus Edwards U-100 Insulin 100 unit/mL (3 mL) insulin pen 24 unit subcut BID cholecalciferol (vitamin D3) 50 mcg (2,000 unit) capsule 50 mcg PO DAILY docusate sodium [Colace] 100 mg capsule 100 mg PO BID krill oil 500 mg capsule 500 mg PO DAILY mirabegron 25 mg tablet extended release 24 hr 25 mg PO DAILY potassium chloride 20 mEq tablet extended release 20 meq PO DAILY hydrocodone-acetaminophen 5-325 mg tablet 1 tab PO BID carvedilol 3.125 mg tablet 3.125 mg PO BIDCM Qty: 180 3RF gabapentin 600 mg tablet 600 mg PO .4xday insulin aspart U-100 [Novolog U-100 Insulin aspart] 100 unit/mL solution 8 unit subcut TID folic acid 0.4 MG tablet 0.4 mg PO DAILY pravastatin 80 mg tablet 80 mg PO DAILY acetaminophen 500 mg Tablet 1,000 mg PO Q6H PRN PRN (Reason: Pain Score 1-3) Qty: 0 0RF valacyclovir 1 gram Tablet 1,000 mg PO BID naloxone 0.4 mg/0.4 mL Auto-Injector 4 mg Trulicity 0.75 mg/0.5 mL Pen Injector 0.75 mg SUBCUT QWEEK baclofen 10 mg tablet 10 mg PO TID PRN (Reason: Muscle pain/spasm) Qty: 90 3RF aspirin [Adult Low Dose Aspirin] 81 mg tablet,delayed release (DR/EC) 81 mg PO DAILY clopidogrel 75 mg tablet See Rx Instructions .ROUTE .COMPLEX Qty: 90 3RF Dose Instruction: TAKE 1 TABLET EVERY DAY Rx Instructions: TAKE 1 TABLET EVERY DAY nitroglycerin 0.4 mg tablet, sublingual 0.4 mg sublingual Q5-15M PRN Rx Instructions: do not exceed 3 doses per episode furosemide 40 mg tablet 40 mg PO BID Qty: 270 3RF metolazone 5 mg tablet 5 mg PO DAILY Primary Care Provider: Paulo Nguyen Referrals: Paulo Nguyen MD [Primary Care Provider] - 2 Days Activity Restrictions/Additional Instructions: Discussed with Dr. Johnson your plan of care. Hold your metolazone continue Lasix 40 mg twice daily. Your creatinine is 2.4 today. Nursing from office will reach out to you to be seen in 2 days to recheck your blood work. Your potassium 2.6 you are given oral replacement in the ED of 40 mill equivalents. Continue your replacement at home as prescribed. For your insulin regimen, you are insulin glargine will be increased to 30 units twice a day. You are NovoLog will be increased to 10 units 3 times a day before meals. Disposition Disposition: Home, Self Care
[2023-01-17 13:25] LABS: Bedside Glucose 342 mg/dL (74-106)
--- NOTE | 2023-01-17 13:30 | RAD_ITS ---
EXAM: XR CHEST, 2 VIEWS CLINICAL INDICATION: sob TECHNIQUE: Frontal and lateral views of the chest. This report was created using [employer] report generation technology. COMPARISON: XR Chest dated 07/21/2020 FINDINGS: LUNGS AND PLEURAL SPACES: Normal. No consolidation or edema. No pneumothorax. No effusion. HEART: Stable borderline cardiomegaly. Coronary artery stent noted. MEDIASTINUM: No mediastinal or hilar mass. BONES/JOINTS: No acute abnormality. RAD/Chest PA and Lateral IMPRESSION: No acute pulmonary abnormality. Stable mild cardiomegaly. Electronically Signed: Wilmer Heller MD at 13:57 EDT ,
[2023-01-17 13:33] LABS: Absolute Lymphocyte Count 1.08 X10^3/uL (0.83-4.51); Absolute Neutrophil Count 6.2 X10^3/uL (2.0-7.7); Basophil# 0.06 X10^3/uL; Basophil% 0.7 % (0-1); Eosinophil# 0.22 X10^3/uL; Eosinophils% 2.6 % (0-5); Hematocrit 46.8 % (40-54); Hemoglobin 16.2 g/dL (13.0-16.5); Lymphocyte # 1.08 X10^3/ul (0.83-4.51); Lymphocyte % 12.8 % (19-41); Mean Corp Hgb Conc 34.6 g/dL (32-36); Mean Corpuscular Hgb 32.5 pg (27.0-32.0); Mean Platelet Vol. 10.2 fl (6.2-12.0); Monocyte# 0.74 X10^3/uL; Monocyte% 8.8 % (0-10); NRBC Flagged by Analyzer 0 % (0-5); Neutrophil # 6.24 X10^3/uL (2.7-7.7); Neutrophil % 74.3 % (47-70); Platelet Count 210 K/mm3 (150-450); RBC Distribution Width CV 14.5 % (11.6-14.6); RBC Distribution Width SD 50.3 fl (35.1-43.9); Red Blood Count 4.98 M/mm3 (4.6-6.2); White Blood Count 8.4 K/mm3 (4.4-11.0)
[2023-01-17 13:52] LABS: Anion Gap 9 (5-15); BUN 56 mg/dL (7-18); BUN/Creat Ratio 23.1 RATIO (10-20); Calcium,Total 9.5 mg/dL (8.5-10.1); Chloride 85 mmol/L (98-107); Creatinine, Serum 2.42 mg/dL (0.70-1.30); EST Glomerular Filtration Rate 28 mL/min (>60); Est Glom Filt Rate - Afr Amer 33 mL/min (>60); Estimated Creatinine Clearance 23.95 ml/min; Glucose 340 mg/dL (74-106); Potassium 2.6 mmol/L (3.5-5.1); Sodium Level 130 mmol/L (136-145); Troponin-I HS 58 pg/mL (3.0-78.0)
[2023-01-17 14:01] LABS: BNP,B-Type NATRIURETIC PEPTIDE 92.6 pg/mL (0-100)
[2023-01-17] MEDS: Potassium Chloride Oral Tablet 20 MEQ 40 MEQ PO (14:06)
[2023-01-17] MEDS: Insulin Lispro 100 UNIT/ML INSULN.PEN 15 UNIT SC (14:08)
[2023-01-17 15:30] LABS: Bedside Glucose 301 mg/dL (74-106)
--- NOTE | 2023-01-17 16:25 | ED.RN ---
PT ASKED THAT THIS RN CALL HIS TO COME GET HIM. THIS RN CALLED [facility] AT 1625. EVEL[facility] TO COME GET PT.
== END 2023-01-17 16:33 | disposition home or self-care (01) ==
PROVIDERS: Emergency Provider Emergency Medicine; PCP Family Medicine; Visit Provider Emergency Medicine
DX: E11.65 Type 2 diabetes mellitus with hyperglycemia (principal); N17.9 Acute kidney failure, unspecified; I11.0 Hypertensive heart disease with heart failure; I50.9 Heart failure, unspecified; E11.22 Type 2 diabetes mellitus with diabetic chronic kidney disease; Z79.4 Long term (current) use of insulin; E78.5 Hyperlipidemia, unspecified; I25.10 Atherosclerotic heart disease of native coronary artery without angina pectoris; Z87.891 Personal history of nicotine dependence; E87.6 Hypokalemia; N18.9 Chronic kidney disease, unspecified
CPT/HCPCS: 71046; 80048; 82962; 83880; 84484; 85025; 87428; 93005; 99285; A4216

== ENCOUNTER 2023-01-21 10:22 | Inpatient (IN) | payer MEDICARE, OTHER, SELFPAY ==
[2021-02-27 07:06] VITALS: BMI 40.4
[2023-01-21] VITALS (9 sets, daily range): BP systolic 104–141; BP diastolic 53–119; PULSE 85–104; RESP 16–21; TEMP 36.3–36.9; O2SAT 86–97; BMI 40.6; BMI 36.7
--- NOTE | 2023-01-21 10:39 | EKG12_ITS ---
Test Reason : WEAKNESS Blood Pressure : / mmHG Vent. Rate : 096 BPM Atrial Rate : 000 BPM P-R Int : 000 ms QRS Dur : 120 ms QT Int : 426 ms P-R-T Axes : 000 033 064 degrees QTc Int : 538 ms Wide QRS rhythm with occasional Premature ventricular complexes Junctional rhythm Low voltage QRS Non-specific intra-ventricular conduction delay Nonspecific ST abnormality Abnormal ECG Confirmed by KANDICE COLEMAN ([id number]), graphic editor MARISELA PIERRE ([id number]) on 01/25/2023 8:02:54 AM Referred By: Confirmed By:KANDICE COLEMAN
--- NOTE | 2023-01-21 10:40 | EX.ED.DYSGE1 ---
HPI History of Present Illness Chief Complaint: Weakness Informant: patient Narrative Narrative: Patient is a very poor historian, but presents for multiple complaints including generalized weakness. He has been constipated, trying to have a bowel movement but unable, the last time he went was 10 or 12 days ago, he states usually he goes once every 7 or 8 days. He has been short of breath especially with trying to exert himself, rest helps. He does not know how long that has been the case. He denies any chest pain. He states he does have a cough, he occasionally coughs up some stuff but no blood. Denies any fevers that he knows of. He has chronic low back pain and it is worse. Initially he states no this is something different, but then he admits that he is hurting in the exact same area that he does chronically, across his low back nonlateralizing, it hurts worse to move, and he states no it is similar but just worse than usual. He has chronic edema in his legs, he thinks this may be a little worse but if it is it is not a lot. He is urinating. He is not having dysuria. He has trouble starting a good stream chronically and that is no different. He is eating and drinking, he denies any abdominal pain or vomiting but he does have some nausea on occasion but not right now. This morning, he was sitting there and had a shaking chill for half hour or an hour. He called his PCP and they advised him to come to the ER. He no longer is having that. Was in the ER 4 days ago, sent because his blood sugars were high, and he also had a significant weight loss and hypokalemia, so his metaxalone was discontinued at that time. Then, he had a routine office visit with his doctor 2 days ago in follow up and they advised him to keep a log of his blood sugars and to report back after the weekend which is coming up, they have been better, in the 200s. Patient states all of this was going on then, but it is worsening. [facility] Medical History Atherosclerotic heart disease of [place] coronary artery without angina pectoris Cardiomyopathy DM type 2 (diabetes mellitus, type 2) Essential hypertension Hyperlipidemia NSTEMI (non-ST elevated myocardial infarction) Obesity Pericardial effusion Presence of stent in coronary artery (10/20/19) Shingles Spinal stenosis Home Medications folic acid 400 mcg tablet 400 mcg PO DAILY supplement 10/19/19 [History Last Taken 09/08/21] tamsulosin 0.4 mg capsule 0.4 mg PO QHS BPH 07/02/20 [History Last Taken 09/10/21 21:00] pravastatin 80 mg tablet 80 mg PO DAILY cholesterol 05/15/21 [History Last Taken 09/10/21 21:00] acetaminophen 500 mg tablet 1,000 mg PO Q6H PRN PRN Pain Score 1-3 #0 tabs 09/30/21 [Rx Last Taken Unknown] docusate sodium 100 mg capsule (Colace) 100 mg PO BID 10/29/21 [History Last Taken Unknown] krill oil 500 mg capsule 500 mg PO DAILY 10/29/21 [History Last Taken Unknown] mirabegron 25 mg tablet,extended release 24 hr 25 mg PO DAILY 10/29/21 [History Last Taken Unknown] potassium chloride 20 mEq tablet,extended release 20 meq PO DAILY 10/29/21 [History Last Taken Unknown] baclofen 10 mg tablet 10 mg PO TID PRN Muscle pain/spasm #90 tabs 11/02/21 [Rx Last Taken Unknown] cholecalciferol (vitamin D3) 50 mcg (2,000 unit) capsule 50 mcg PO DAILY 01/28/22 [History Last Taken Unknown] dulaglutide 0.75 mg/0.5 mL subcutaneous pen injector (Trulicity) 0.75 mg subcut QWEEK 05/25/22 [History Last Taken Unknown] naloxone 0.4 mg/0.4 mL injection, auto-injector 4 mg 05/25/22 [History Last Taken Unknown] carvedilol 3.125 mg tablet 3.125 mg PO BIDCM #180 tabs 08/02/22 [Rx Last Taken Unknown] nitroglycerin 0.4 mg sublingual tablet 0.4 mg sublingual Q5-15M PRN Chest Pain 01/05/23 [History Last Taken Unknown] furosemide 40 mg tablet 40 mg PO BID #270 tabs 01/11/23 [Rx Last Taken Unknown] gabapentin 600 mg tablet 600 mg PO Q6H PRN PRN Pain 01/12/23 [History Last Taken Unknown] hydrocodone-acetaminophen 5-325mg 5mg-325mg 1 tab PO Q6H PRN PRN Pain 01/12/23 [History Last Taken Unknown] insulin aspart U-100 100 unit/mL subcutaneous solution (Novolog U-100 Insulin aspart) 8 unit subcut TID 01/12/23 [History Last Taken Unknown] insulin glargine 100 unit/mL (3 mL) subcutaneous pen (Basaglar KwikPen U-100 Insulin) 36 unit subcut BID diabetes 01/12/23 [History Last Taken Unknown] albuterol sulfate 90 mcg/actuation aerosol inhaler 2 puff inhalation Q4H PRN PRN Shortness Of Breath 01/21/23 [History Last Taken Unknown] Allergy/AdvReac Type Severity Reaction Status Date / Time lisinopril AdvReac cough Verified 01/21/23 10:25 Surgical History H/O knee surgery History of back surgery History of left heart catheterization (10/20/19) Presence of coronary angioplasty implant and graft (~10/20/19) Social History household members: spouse Smoking Status: Former smoker how long ago did patient quit smokin+ years used cigars ocationally alcohol intake: current alcohol intake frequency: a few times a month Alcohol type: beer substance use type: does not use caffeine: No ROS ROS ED Constitutional Constitutional ED: Reports chills and weakness; Denies fever(s) Eyes Eyes: Denies change in vision or diplopia ENT ENT ED: Denies ear pain, rhinorrhea or sore throat Cardiovascular Cardiovascular: Reports leg edema; Denies chest pain or palpitations Respiratory/Chest Respiratory/Chest: Reports cough, dyspnea, dyspnea on exertion and other Details: orthopnea sometimes Gastrointestinal Gastrointestinal: Reports constipation and nausea; Denies abdominal pain, diarrhea, hematochezia, melena or vomiting Genitourinary Genitourinary ED: Reports as per HPI and difficulty urinating; Denies decreased urination, dysuria or hematuria Musculoskeletal Musculoskeletal: Reports back pain; Denies neck pain Integumentary Denies abscess or rash Neurologic Neurologic: Denies headache(s), paresthesias or weakness Psychiatric Psychiatric: Denies anxiety or suicidal thoughts EXAM Physical Exam Const Vital Signs: 01/21/23 10:23 01/21/23 10:54 01/21/23 11:07 Temperature 97.3 F L Temperature Source Temporal Pulse Rate 104 H Respiratory Rate 16 Respiratory Effort Normal Non-Labored Respiratory Pattern Normal Blood Pressure 141/119 H Blood Pressure Mean 126 Pulse Ox 95 86 Oxygen Delivery Method Room Air Room Air Oxygen Flow Rate (L/min) 01/21/23 11:21 01/21/23 13:07 01/21/23 15:02 Temperature Temperature Source Pulse Rate 94 85 Respiratory Rate 21 H 18 Respiratory Effort Respiratory Pattern Blood Pressure 135/84 H 111/53 L Blood Pressure Mean 101 72 Pulse Ox 94 95 95 Oxygen Delivery Method Nasal Cannula Nasal Cannula Nasal Cannula Oxygen Flow Rate (L/min) 2 2 2 01/21/23 15:17 Temperature Temperature Source Pulse Rate 88 Respiratory Rate 17 Respiratory Effort Respiratory Pattern Blood Pressure Blood Pressure Mean Pulse Ox 96 Oxygen Delivery Method Nasal Cannula Oxygen Flow Rate (L/min) 2 Positive well nourished, well developed and obese General Appearance ED: well developed and NAD Nutritional Appearance: obese HEENT Reports moist mucous membranes normocephalic and atraumatic Eyes PERRL and EOMs intact bilaterally Neck full ROM, no lymphadenopathy and supple Neck Narrative: Evaluation for JVD limited by obesity Resp normal respiratory effort and clear to auscultation bilaterally Cardio regular rate and regular rhythm Rate: other Other Details: Very faint heart sounds GI non-tender and non-distended Auscultation: normoactive bowel sounds Palpation: soft Back/Spine no CVA tenderness General Back: other FROM Extremity normal to inspection General Extremety ED: Yes edema; Negative for pulses abnormal or tenderness General Extremity: edema bilateral lower extremity Details: mild; Negative for pulses abnormal Neuro oriented x3, CN's II-XII intact bilaterally and no sensory deficits noted Sensorium / Orientation: awake and alert Motor Exam: strength 5/5 throughout Psych mental status grossly normal Skin no rashes or lesions noted and no wounds MDM MDM MDM Narrative Medical decision making narrative: Patient was on potassium supplementation after he discontinued the metaxalone, his potassium is a little higher from 2.6 now to 2.9 but still high, and his sodium is low at 128, a little lower than it was a couple days ago at 130. Kidney function is similar to what it was then. He does not have an anion gap acidosis. I did some liver enzymes looking at his protein levels, those look good, but his bilirubin is elevated more so than it was before for unclear reasons. EKG and troponin are unremarkable, BNP is just barely elevated, and with a chest x-ray 2 views out of my interpretation does not show pulmonary edema, this is consistent with the absence of acute CHF. COVID and flu are negative. Etiology of his dyspnea is unknown at this time. Therefore I sent a D-dimer. It is slightly abnormal at 0.73, however when correcting for age, this is well within normal limits and rules out pulmonary embolus acutely. On reevaluation patient has been breathing well. He is weak. I have been giving him IV potassium, nurses were concerned that he was having some pain at the IV site even though the IV was drawing back blood and flushing okay so they withdrew the IV after stopping/pausing the potassium, switched it from the left forearm/wrist to the right, where it is going and painlessly, he does not have any evidence of any necrotic tissue on the left side it is just a little swollen and tender. I discussed with the patient at length. He states he feels weaker now than he did 4 days ago even though his potassium is a little higher than it was then. He has been taking oral potassium supplementation at home and eating bananas for the last 4 days. He feels weak and feels he is having trouble with ADLs at home, requesting admission. With regards to the patient's urine which she was not able to get, as he does not feel like he needs to go even after getting IV fluids after hours of being in the emergency department, and multiple attempts at giving a specimen, we attempted to disimpact him, followed by an enema since there was nothing palpable there, he ended up having a very good bowel movement and still was unable to provide a urine specimen. Therefore I had nursing straight catheterized him for urine specimen. Urinalysis returned showing no signs of acute infection. History & Record Review Additional record(s) reviewed:: Prior ED visit and Prior labs Lab Data Attestation: I reviewed the patient's lab results. Labs: Laboratory Results - last 24 hr 01/21/23 01/21/23 01/21/23 10:50 10:50 10:50 WBC 12.8 H RBC 4.92 Hgb 16.0 Hct 46.3 MCV 94.1 H MCH 32.5 H MCHC 34.6 RDW Std Deviation 49.1 H RDW Coeff of Susan 14.2 Plt Count 234 MPV 10.3 Immature Gran % (Auto) 1.200 H Neut % (Auto) 85.1 H Lymph % (Auto) 6.5 L [place] % (Auto) 6.4 Eos % (Auto) 0.3 Baso % (Auto) 0.5 Absolute Neuts (auto) 10.9 H Absolute Lymphs (auto) 0.83 Nucleated RBC % 0 D-Dimer Quant (PE/DVT) Sodium 128 L Potassium 2.9 L Chloride 82 L Carbon Dioxide 37.0 H Anion Gap 9 BUN 57 H Creatinine 2.21 H Estim Creat Clear Calc 24.46 Est GFR (MDRD) Af Amer 37 L Est GFR (MDRD) Non-Af 31 L BUN/Creatinine Ratio 25.8 H Glucose 197 H Calcium 9.7 Total Bilirubin 2.40 H AST 31 ALT 25 Alkaline Phosphatase 69 Troponin I High Sens 68 B-Natriuretic Peptide 137.5 H Total Protein 8.1 Albumin 3.6 Globulin 4.5 H Albumin/Globulin Ratio 0.8 L Urine Color Urine Clarity Urine pH Ur Specific [place] Urine Protein Urine Glucose (UA) Urine Ketones Urine Occult Blood Urine Nitrite Urine Bilirubin Urine Urobilinogen Ur Leukocyte Esterase Urine RBC Urine WBC Ur Squamous Epith Cells Urine Bacteria Urine Mucus 01/21/23 01/21/23 12:18 15:25 WBC RBC Hgb Hct MCV MCH MCHC RDW Std Deviation RDW Coeff of Susan Plt Count MPV Immature Gran % (Auto) Neut % (Auto) Lymph % (Auto) [place] % (Auto) Eos % (Auto) Baso % (Auto) Absolute Neuts (auto) Absolute Lymphs (auto) Nucleated RBC % D-Dimer Quant (PE/DVT) 0.73 H* Sodium Potassium Chloride Carbon Dioxide Anion Gap BUN Creatinine Estim Creat Clear Calc Est GFR (MDRD) Af Amer Est GFR (MDRD) Non-Af BUN/Creatinine Ratio Glucose Calcium Total Bilirubin AST ALT Alkaline Phosphatase Troponin I High Sens B-Natriuretic Peptide Total Protein Albumin Globulin Albumin/Globulin Ratio Urine Color Yellow Urine Clarity Clear Urine pH 7.0 Ur Specific [place] 1.005 Urine Protein 15 H Urine Glucose (UA) Normal Urine Ketones Negative Urine Occult Blood 25 H Urine Nitrite Negative Urine Bilirubin Negative Urine Urobilinogen Normal Ur Leukocyte Esterase Negative Urine RBC 0 SEEN Urine WBC 0 SEEN Ur Squamous Epith Cells 0 SEEN Urine Bacteria 0 SEEN Urine Mucus 0 SEEN Radiography Chest X-Ray - ED: 2 View, Read by ED Physician, Chronic Changes and No Infiltrates Diagnostic Testing: Clinical Impression(s) from Imaging Studies Chest X-Ray 01/21/23 11:00 IMPRESSION: No acute pulmonary process, no interval change Electronically Signed: Raleigh Lopes MD at 11:11 EDT Reading Location ID and State: [facility] / [place] , Service support , Rhythm Strip Rhythm Strip: Sinus Rhythm Rate: 95 Ectopy: None EKG Initial EKG: Attestation: I personally reviewed and interpreted this EKG as follows: Interpretation: Sinus Rhythm and No Acute Injury Pattern Comments: Nonspecific intraventricular conduction delay. PVC. Prior: Unchanged Management Discussion w/another healthcare provider: Hospitalist Discharge Plan Triage Chief Complaint: Weakness Other Complaint: Constipation ED Provider: John Mancuso Dx/Rx/DC Orders Clinical Impression: Hypokalemia due to excessive renal loss of potassium, Weakness, Debility, SUMAN (acute kidney injury) Prescriptions: No Action tamsulosin 0.4 mg capsule 0.4 mg PO QHS Basaglar KwikPen U-100 Insulin 100 unit/mL (3 mL) insulin pen 36 unit subcut BID cholecalciferol (vitamin D3) 50 mcg (2,000 unit) capsule 50 mcg PO DAILY docusate sodium [Colace] 100 mg capsule 100 mg PO BID krill oil 500 mg capsule 500 mg PO DAILY mirabegron 25 mg tablet extended release 24 hr 25 mg PO DAILY potassium chloride 20 mEq tablet extended release 20 meq PO DAILY hydrocodone-acetaminophen 5-325 mg tablet 1 tab PO Q6H PRN PRN (Reason: Pain) carvedilol 3.125 mg tablet 3.125 mg PO BIDCM Qty: 180 3RF gabapentin 600 mg tablet 600 mg PO Q6H PRN PRN (Reason: Pain) insulin aspart U-100 [Novolog U-100 Insulin aspart] 100 unit/mL solution 8 unit subcut TID folic acid 0.4 MG tablet 400 mcg PO DAILY pravastatin 80 mg tablet 80 mg PO DAILY acetaminophen 500 mg Tablet 1,000 mg PO Q6H PRN PRN (Reason: Pain Score 1-3) Qty: 0 0RF naloxone 0.4 mg/0.4 mL Auto-Injector 4 mg Trulicity 0.75 mg/0.5 mL Pen Injector 0.75 mg SUBCUT QWEEK albuterol sulfate 90 mcg/actuation HFA aerosol inhaler 2 puff INHALATION Q4H PRN PRN (Reason: Shortness Of Breath) baclofen 10 mg tablet 10 mg PO TID PRN (Reason: Muscle pain/spasm) Qty: 90 3RF nitroglycerin 0.4 mg tablet, sublingual 0.4 mg sublingual Q5-15M PRN (Reason: Chest Pain) Rx Instructions: do not exceed 3 doses per episode furosemide 40 mg tablet 40 mg PO BID Qty: 270 3RF Primary Care Provider: Paulo Nguyen Referrals: Paulo Nguyen MD [Primary Care Provider] - Disposition Disposition: Acute Care Hospital [facility]
[2023-01-21 10:56] LABS: Absolute Lymphocyte Count 0.83 X10^3/uL (0.83-4.51); Absolute Neutrophil Count 10.9 X10^3/uL (2.0-7.7); Basophil# 0.06 X10^3/uL; Basophil% 0.5 % (0-1); Eosinophil# 0.04 X10^3/uL; Eosinophils% 0.3 % (0-5); Hematocrit 46.3 % (40-54); Lymphocyte # 0.83 X10^3/ul (0.83-4.51); Lymphocyte % 6.5 % (19-41); Mean Corp Hgb Conc 34.6 g/dL (32-36); Mean Corpuscular Hgb 32.5 pg (27.0-32.0); Mean Corpuscular Volume 94.1 fL (80-94); Mean Platelet Vol. 10.3 fl (6.2-12.0); Monocyte# 0.82 X10^3/uL; Monocyte% 6.4 % (0-10); NRBC Flagged by Analyzer 0 % (0-5); Neutrophil % 85.1 % (47-70); Platelet Count 234 K/mm3 (150-450); RBC Distribution Width CV 14.2 % (11.6-14.6); RBC Distribution Width SD 49.1 fl (35.1-43.9); Red Blood Count 4.92 M/mm3 (4.6-6.2); White Blood Count 12.8 K/mm3 (4.4-11.0)
--- NOTE | 2023-01-21 11:00 | RAD_ITS ---
STUDY: X-RAY CHEST REASON FOR EXAM: Male, 77 years old. Fever and cough TECHNIQUE: PA and lateral views of the chest. COMPARISON: 01/17/2023 FINDINGS: EKG leads overlie the chest The lungs are clear and expanded. There is no demonstrated pleural abnormality. Normal size heart. Normal mediastinum and gio. Normal visualized pulmonary arteries. Normal visualized aortic arch and descending thoracic aorta. There are diffuse degenerative changes of the visualized thoracic spine. There is degenerative osteoarthritis of the bilateral shoulders. There is no demonstrated abnormality of the visualized soft tissue structures of the upper abdomen. RAD/Chest PA and Lateral IMPRESSION: No acute pulmonary process, no interval change Electronically Signed: Raleigh Lopes MD at 11:11 EDT ,
[2023-01-21 11:13] LABS: ALB/GLOB Ratio 0.8 RATIO (0.9-2.4); AST(SGOT) 31 U/L (15-37); Alanine Aminotransfer ALT/SGPT 25 U/L (16-61); Albumin, Serum 3.6 g/dL (3.2-5.0); Alkaline Phosphatase 69 U/L (45-117); Anion Gap 9 (5-15); BUN 57 mg/dL (7-18); BUN/Creat Ratio 25.8 RATIO (10-20); Calcium,Total 9.7 mg/dL (8.5-10.1); Chloride 82 mmol/L (98-107); Creatinine, Serum 2.21 mg/dL (0.70-1.30); EST Glomerular Filtration Rate 31 mL/min (>60); Est Glom Filt Rate - Afr Amer 37 mL/min (>60); Estimated Creatinine Clearance 24.46 ml/min; Globulin 4.5 g/dL (2.2-4.2); Glucose 197 mg/dL (74-106); Potassium 2.9 mmol/L (3.5-5.1); Protein, Total 8.1 g/dL (6.4-8.2); Sodium Level 128 mmol/L (136-145); Troponin-I HS 68 pg/mL (3.0-78.0)
[2023-01-21 11:15] LABS: BNP,B-Type NATRIURETIC PEPTIDE 137.5 pg/mL (0-100)
[2023-01-21 12:43] LABS: D-Dimer Quantitative (DVT/PE) 0.73 FEU/ug/m (0.27-0.49)
[2023-01-21] MEDS: Potassium Chloride 10mEq/100mL 10 MEQ/100 ML IV.SOLN. 100 MEQ IV BOLUS ×3 (13:45→20:51)
--- NOTE | 2023-01-21 13:49 | ED.RN ---
THIS RN FLUSHED IV IN RIGHT HAND WITH NORMAL SALINE PRIOR TO START OF POTASSIUM IV. IV FLUSHED NO S/S OF INFILTRATION. SKIN AROUND SITE P/W/D PT DENIES PAIN AT IV SITE.
--- NOTE | 2023-01-21 14:11 | ED.RN ---
AT 1400 PT COMPLAINED OF BURNING TO IV SITE IN RIGHT HAND. THIS RN APPLIED ICE PACK AND STOPPED THE INFUSION. NO S/S OF INFILTRATION, IV FLUSHES AND PULLS BACK BLOOD. THIS RN ASKED Héctor HARPER RN TO LOOK AT IV. Héctor HARPER RN ASSESSED IV WITHOUT S/S OF INFILTRATION. Héctor HARPER RN PUT IN NEW IV TO RIGHT AC TO HELP WITH BURNING DURING POTASSIUM INFUSION.
[2023-01-21 15:31] LABS: Bacteria 0 SEEN /hpf (None Seen); Mucous, Urine 0 SEEN /hpf (<or=2+); Red Blood Cells-Urine 0 SEEN /hpf (0-5); Squamous Epithelial Cells - UA 0 SEEN /hpf (0-5); White Blood Cells 0 SEEN /hpf (0-5)
[2023-01-21 15:35] LABS: Color, Urine Yellow (Yellow); Glucose, Dipstick Normal (Normal); Ketone-Dipstick Negative (Negative); Leukocyte Esterase-Dipstick Negative /ul (Negative); Nitrite-Dipstick Negative (Negative); Occult Blood-Urine 25 /ul (Negative); Protein-Dipstick 15 mg/dl (Negative); Specific Gravity, Urine 1.005 (1.002-1.030); Urine Bilirubin Dipstick Negative (Negative); Urine Clarity Clear (Clear); Urine Urobilinogen Normal (Normal)
--- NOTE | 2023-01-21 16:05 | ED.RN ---
PER DR. BAE, PT OKAY TO EAT. PT PROVIDED WITH SNACK.
[2023-01-21 17:01] LABS: Magnesium 2.6 mg/dL (1.6-2.6)
[2023-01-21] MEDS: Carvedilol 3.125 MG TABLET PO (19:10)
[2023-01-21] MEDS: Losartan Potassium 25 MG Tablet PO (19:14)
[2023-01-21] MEDS: Potassium Chloride Oral Tablet 20 MEQ 40 MEQ PO (19:15)
[2023-01-21] MEDS: 0.9% Saline Lock 10 ML Syringe IV (19:43)
--- NOTE | 2023-01-21 20:55 | HP.PCM.HOS_ITS ---
HPI - General General Date of Admission: 01/22/23 Date of Service: 01/21/23 Chief Complaint: Generalized weakness HPI Narrative LUCIA NEGRO, is a 77 M who presents to the emergency room at [facility] with a complaint of generalized weakness. Patient has a history of cardiomyopathy with intermediate ejection fraction. Patient told nursing that he was recently taken off of one of his diuretic medications, it appears the patient was on Zaroxolyn at 1 time as well as Lasix. Work-up in the emergency room included a CBC which showed an elevated white blood cell count at 12.8, chemistry profile was abnormal for a potassium of 2.9, sodium of 128, creatinine of 2.21 and a BUN of 57. Patient's glucose was 197. Patient's total bilirubin was elevated at 2.4. Patient's chest x-ray showed no evidence of congestive heart failure. Patient told the emergency room physician that he felt too weak to go home. Patient will be placed in observation status on MedSurg 3, he will be given IV potassium replacement, labs will be monitored, I have elected to keep him on oral Lasix at this time, I will reevaluate him tomorrow morning. [facility] Medical History (Updated 01/21/23 @ 20:17 by Janina Howard) Atherosclerotic heart disease of [place] coronary artery without angina pectoris Cardiomyopathy Cataracts, both eyes Chest pain Congestive heart failure (CHF) CPAP (continuous positive airway pressure) dependence Dementia DM type 2 (diabetes mellitus, type 2) DVT (deep venous thrombosis) Essential hypertension Former smoker Hyperlipidemia Kidney disease NSTEMI (non-ST elevated myocardial infarction) Obesity Pericardial effusion Presence of stent in coronary artery (10/20/19) Shingles Sleep apnea Spinal stenosis Home Medications folic acid 400 mcg tablet 400 mcg PO DAILY supplement 10/19/19 [History Last Taken 09/08/21] tamsulosin 0.4 mg capsule 0.4 mg PO QHS BPH 07/02/20 [History Last Taken 09/10/21 21:00] pravastatin 80 mg tablet 80 mg PO DAILY cholesterol 05/15/21 [History Last Taken 09/10/21 21:00] acetaminophen 500 mg tablet 1,000 mg PO Q6H PRN PRN Pain Score 1-3 #0 tabs 09/30/21 [Rx Last Taken Unknown] docusate sodium 100 mg capsule (Colace) 100 mg PO BID 10/29/21 [History Last Taken Unknown] krill oil 500 mg capsule 500 mg PO DAILY 10/29/21 [History Last Taken Unknown] mirabegron 25 mg tablet,extended release 24 hr 25 mg PO DAILY 10/29/21 [History Last Taken Unknown] potassium chloride 20 mEq tablet,extended release 20 meq PO DAILY 10/29/21 [History Last Taken Unknown] baclofen 10 mg tablet 10 mg PO TID PRN Muscle pain/spasm #90 tabs 11/02/21 [Rx Last Taken Unknown] cholecalciferol (vitamin D3) 50 mcg (2,000 unit) capsule 50 mcg PO DAILY 01/28/22 [History Last Taken Unknown] dulaglutide 0.75 mg/0.5 mL subcutaneous pen injector (Trulicity) 0.75 mg subcut QWEEK 05/25/22 [History Last Taken Unknown] naloxone 0.4 mg/0.4 mL injection, auto-injector 4 mg 05/25/22 [History Last Taken Unknown] carvedilol 3.125 mg tablet 3.125 mg PO BIDCM #180 tabs 08/02/22 [Rx Last Taken Unknown] nitroglycerin 0.4 mg sublingual tablet 0.4 mg sublingual Q5-15M PRN Chest Pain 01/05/23 [History Last Taken Unknown] furosemide 40 mg tablet 40 mg PO BID #270 tabs 01/11/23 [Rx Last Taken Unknown] gabapentin 600 mg tablet 600 mg PO Q6H PRN PRN Pain 01/12/23 [History Last Taken Unknown] hydrocodone-acetaminophen 5-325mg 5mg-325mg 1 tab PO Q6H PRN PRN Pain 01/12/23 [History Last Taken Unknown] insulin aspart U-100 100 unit/mL subcutaneous solution (Novolog U-100 Insulin aspart) 8 unit subcut TID 01/12/23 [History Last Taken Unknown] insulin glargine 100 unit/mL (3 mL) subcutaneous pen (Basaglar KwikPen U-100 Insulin) 36 unit subcut BID diabetes 01/12/23 [History Last Taken Unknown] albuterol sulfate 90 mcg/actuation aerosol inhaler 2 puff inhalation Q4H PRN PRN Shortness Of Breath 01/21/23 [History Last Taken Unknown] Allergy/AdvReac Type Severity Reaction Status Date / Time lisinopril AdvReac cough Verified 01/21/23 10:25 Surgical History H/O knee surgery History of back surgery History of left heart catheterization (10/20/19) Presence of coronary angioplasty implant and graft (~10/20/19) Social History household members: spouse Smoking Status: Former smoker how long ago did patient quit smokin+ years used cigars ocationally alcohol intake: current alcohol intake frequency: a few times a month Alcohol type: beer substance use type: does not use caffeine: No ROS ROS Narrative Patient is an overall poor informant Constitutional Constitutional: Reports weakness; Denies anorexia, change in weight, chills, fever(s) or night sweats Eyes Eyes: Denies blurry vision, change in vision, discharge from eye(s) or eye pain ENT HEENT: Denies abnormal hearing, dysphagia or ear pain Cardiovascular Cardiovascular: Denies chest pain, claudication, dyspnea on exertion, edema, lightheadedness, orthopnea or palpitations Respiratory/Chest Respiratory/Chest: Denies cough, hemoptysis, shortness of breath at rest or shortness of breath with exertion Gastrointestinal Gastrointestinal: Denies abdominal pain, constipation, diarrhea, hematemesis, hematochezia, melena, nausea or vomiting Genitourinary Genitourinary: Denies dysuria, hematuria, urinary frequency, urinary hesitancy, urinary incontinence or urinary urgency Musculoskeletal Musculoskeletal: Denies back pain, joint pain, joint stiffness, joint swelling, myalgias or neck pain Neurologic Neurologic: Denies abnormal gait, abnormal speech, dizziness, focal weakness, headache(s), loss of vision, numbness, other visual disturbances, paresthesias, syncope or tingling Psychiatric Psychiatric: Denies anxiety, cognitive impairment, depression, irritability, mood swings or suicidal ideation Endocrine Endocrinology: Denies change in body appearance, cold intolerance, excessive sweating, heat intolerance, polydipsia or polyuria Hematologic/Lymphatic Hematologic/Lymphatic: Denies none, anemia, easy bleeding, easy bruising or lymphadenopathy Allergic/Immunologic Allergic/Immunologic: Denies rhinitis, urticaria, eczemia or asthma Vital Signs Vital Signs Vital Signs: 01/21/23 10:23 01/21/23 10:54 01/21/23 11:07 Temperature 97.3 F L Temperature Source Temporal Pulse Rate 104 H Respiratory Rate 16 Respiratory Effort Normal Non-Labored Respiratory Depth Respiratory Pattern Normal Blood Pressure 141/119 H Blood Pressure Mean 126 Blood Pressure Source Blood Pressure Position Blood Pressure Location Pulse Ox 95 86 Oxygen Delivery Method Room Air Room Air Oxygen Flow Rate (L/min) 01/21/23 11:21 01/21/23 13:07 01/21/23 15:02 Temperature Temperature Source Pulse Rate 94 85 Respiratory Rate 21 H 18 Respiratory Effort Respiratory Depth Respiratory Pattern Blood Pressure 135/84 H 111/53 L Blood Pressure Mean 101 72 Blood Pressure Source Blood Pressure Position Blood Pressure Location Pulse Ox 94 95 95 Oxygen Delivery Method Nasal Cannula Nasal Cannula Nasal Cannula Oxygen Flow Rate (L/min) 2 2 2 01/21/23 15:17 01/21/23 16:33 01/21/23 17:12 Temperature 98.5 F Temperature Source Oral Pulse Rate 88 86 95 Respiratory Rate 17 19 H 18 Respiratory Effort Respiratory Depth Respiratory Pattern Blood Pressure 113/65 104/60 Blood Pressure Mean 81 74 Blood Pressure Source Blood Pressure Position Blood Pressure Location Pulse Ox 96 95 97 Oxygen Delivery Method Nasal Cannula Nasal Cannula Nasal Cannula Oxygen Flow Rate (L/min) 2 2 2 01/21/23 18:55 01/21/23 18:40 Temperature 98.5 F Temperature Source Temporal Pulse Rate 93 Respiratory Rate 16 Respiratory Effort Normal Respiratory Depth Normal Respiratory Pattern Normal Blood Pressure 135/67 H Blood Pressure Mean 89 Blood Pressure Source Monitor Blood Pressure Position Sitting Blood Pressure Location Right Arm Pulse Ox 95 Oxygen Delivery Method Room Air Room Air Oxygen Flow Rate (L/min) Weight Weight: 109.543 kg Body Mass Index (BMI) 36.7 Physical Exam Const alert, oriented x3 and no apparent distress Constitutional Narrative: Patient's affect is flat, he is somewhat of a poor informant General Appearance: cooperative, well kempt and well developed Orientation / Consciousness: awake, oriented to person and oriented to place HEENT normocephalic, head/scalp atraumatic, hearing grossly normal bilaterally and moist oral mucous membranes Eyes PERRL, EOMs intact bilaterally and conjunctivae normal Neck supple, no JVD, thyroid normal and no carotid bruits General: trachea midline Resp normal respiratory effort, no retractions, no use of accessory muscles and clear to auscultation bilaterally Auscultation: Negative for rales, rhonchi or wheezes Cardio regular rate, regular rhythm, S1 normal heart sound, S2 normal heart sound, no murmurs, no rub and no gallops GI normal to inspection, nondistended, normoactive bowel sounds, soft to palpation, non-tender and non-distended Extremity no clubbing, cyanosis or edema Skin no rashes or lesions noted General Skin Exam: no breakdown Neuro oriented x3, CN's II-XII intact bilaterally, moves all extremities, no focal motor deficits and no sensory deficits noted Sensorium / Orientation: awake, alert, oriented to person and oriented to place Speech: speech normal Psych Psych Narrative: Patient has a flat affect Results Lab / Micro Data Result Diagrams: 01/21/23 10:50 01/23/23 04:13 Labs: Laboratory Results - last 24 hr 01/21/23 10:50: WBC 12.8 H, RBC 4.92, Hgb 16.0, Hct 46.3, MCV 94.1 H, MCH 32.5 H , MCHC 34.6, RDW Std Deviation 49.1 H, RDW Coeff of Susan 14.2, Plt Count 234, MPV 10.3, Immature Gran % (Auto) 1.200 H, Neut % (Auto) 85.1 H, Lymph % (Auto) 6.5 L , [place] % (Auto) 6.4, Eos % (Auto) 0.3, Baso % (Auto) 0.5, Absolute Neuts (auto) 10.9 H, Absolute Lymphs (auto) 0.83, Nucleated RBC % 0 01/21/23 10:50: Sodium 128 L, Potassium 2.9 L, Chloride 82 L, Carbon Dioxide 37.0 H, Anion Gap 9, BUN 57 H, Creatinine 2.21 H, Estim Creat Clear Calc 24.46, Est GFR (MDRD) Af Amer 37 L, Est GFR (MDRD) Non-Af 31 L, BUN/Creatinine Ratio 25.8 H, Glucose 197 H, Calcium 9.7, Total Bilirubin 2.40 H, AST 31, ALT 25, Alkaline Phosphatase 69, Troponin I High Sens 68, Total Protein 8.1, Albumin 3.6, Globulin 4.5 H, Albumin/Globulin Ratio 0.8 L 01/21/23 10:50: B-Natriuretic Peptide 137.5 H 01/21/23 10:50: Magnesium 2.6 01/21/23 12:18: D-Dimer Quant (PE/DVT) 0.73 H* 01/21/23 15:25: Urine Color Yellow, Urine Clarity Clear, Urine pH 7.0, Ur Specific [place] 1.005, Urine Protein 15 H, Urine Glucose (UA) Normal, Urine Ketones Negative, Urine Occult Blood 25 H, Urine Nitrite Negative, Urine Bilirubin Negative, Urine Urobilinogen Normal, Ur Leukocyte Esterase Negative, Urine RBC 0 SEEN, Urine WBC 0 SEEN, Ur Squamous Epith Cells 0 SEEN, Urine Bacteria 0 SEEN, Urine Mucus 0 SEEN Micro: Microbiology 01/21/23 10:45 Nasal Secretion SARS-CoV-2 & FLU Antigen (Rapid) - Final Rhythm Strip Rhythm Strip: Sinus Rhythm Rate: 95 Ectopy: None Radiology Impression Chest X-Ray 01/21/23 11:00 IMPRESSION: No acute pulmonary process, no interval change Electronically Signed: Raleigh Lopes MD at 11:11 EDT Reading Location ID and State: [address] [place] [address] , Service support , Assessment & Plan Assessment/Plan (1) Muscular deconditioning: PLAN: Plan 1. Hypokalemia-probably secondary to use of Lasix as outpatient, patient's Lasix will be held at this time, potassium replacement will be given, labs will be monitored #2 elevated creatinine-probably secondary to dehydration, again patient's Lasix will be held, fluids will be administered #3 coronary artery disease-this appears to be stable at this time, continue present medications with exception of Lasix #4 generalized weakness-etiology unclear, PT and OT will see the patient #5 type 2 diabetes-patient's blood sugars will be monitored, sliding scale insulin be used #6 cardiomyopathy with intermediate ejection fraction-patient has a history of reduced ejection fraction, his last echocardiogram showed an EF of 45%-I have elected to place patient on losartan at this time, he is not on an GRETEL inhibitor due to an allergy listed as a cough. Total clinical time spent by myself addressing the patient's medical issues, reviewing the patient's medical data, and collaborating with patient's care team: 75 minutes Charges/Coding Visit Charges Inpatient E&M: 99836 Init Hosp L3
[2023-01-21] MEDS: Tamsulosin HCl 0.4 MG Capsule PO (21:32)
[2023-01-21] MEDS: Insulin Glargine-YFGN 100 UNIT/ML Pen 36 UNIT SC (21:33)
[2023-01-21] MEDS: Insulin Lispro 100 UNIT/ML INSULN.PEN SC (21:37)
[2023-01-22] MEDS: Insulin Lispro 100 UNIT/ML INSULN.PEN SC ×4 (06:20→22:38)
[2023-01-22 08:10] LABS: AST(SGOT) 52 U/L (15-37); Alanine Aminotransfer ALT/SGPT 27 U/L (16-61); Albumin, Serum 3.2 g/dL (3.2-5.0); Alkaline Phosphatase 60 U/L (45-117); Anion Gap 6 (5-15); BUN 66 mg/dL (7-18); Bilirubin, Direct 0.37 mg/dL (0.00-0.30); Calcium,Total 9.2 mg/dL (8.5-10.1); Chloride 85 mmol/L (98-107); Creatinine, Serum 2.75 mg/dL (0.70-1.30); EST Glomerular Filtration Rate 24 mL/min (>60); Est Glom Filt Rate - Afr Amer 29 mL/min (>60); Estimated Creatinine Clearance 21.07 ml/min; Globulin 4.3 g/dL (2.2-4.2); Glucose 275 mg/dL (74-106); Potassium 3.4 mmol/L (3.5-5.1); Protein, Total 7.5 g/dL (6.4-8.2); Sodium Level 128 mmol/L (136-145)
[2023-01-22] MEDS: Potassium Chloride Oral Tablet 20 MEQ PO (08:39)
[2023-01-22] MEDS: Insulin Lispro 100 UNIT/ML INSULN.PEN 8 UNIT SC ×3 (08:39→17:04)
[2023-01-22 08:40] VITALS: BP 98/52; PULSE 80; RESP 18; TEMP 36.9; O2SAT 96
[2023-01-22] MEDS: Insulin Glargine-YFGN 100 UNIT/ML Pen 36 UNIT SC ×2 (08:40→22:39)
[2023-01-22] MEDS: Mirabegron 25 MG TAB.ER.24H PO (08:40)
[2023-01-22] MEDS: 0.9% Saline Lock 10 ML Syringe IV ×2 (10:44→15:03)
--- NOTE | 2023-01-22 11:25 | NURSING ---
Blood sugar is 332 according to Mr. Flores's personal glumeter.
--- NOTE | 2023-01-22 13:22 | CASEMGMT ---
RN CM in to discuss needs at discharge. Patient states he has walker at home, denies need for HHC. Patient had no further questions or concerns at this time.
[2023-01-22] MEDS: Potassium Chloride Oral Tablet 20 MEQ 60 MEQ PO (13:38)
[2023-01-22 13:42] VITALS: BP 118/64; PULSE 77; RESP 18; TEMP 36.8; O2SAT 97
[2023-01-22] MEDS: Carvedilol 3.125 MG TABLET PO (13:45)
[2023-01-22] MEDS: Losartan Potassium 25 MG Tablet PO (13:46)
--- NOTE | 2023-01-22 14:45 | CASEMGMT ---
RN CM Face to Face with patient for initial transition planning/care coordination assessment. RN CM introduced self and role at [facility]. Patient lying in bed, alert and oriented. Patient willing to participate in assessment and is able to answer all questions appropriately. Care providers, pharmacy, and demographics verified. Patient wishes to discharge home, denies need for home health at this time. Patient states he has no further needs or concerns at this time. CM to follow for discharge planning needs that may arise. PCP:Wendy Specialists: [facility]erred [facility]: yes Living Will/HPOA: yes, Coty Flores LNOK: Living Arrangements: Patient lives with in single story condo with no steps to enter. Patient states he is independent at home. Transportation: DME/HHC: Patient has shower chair, raised toilet, cane, grab bars, walker, and cpap at home. No previous HHC or SNF. Disposition Plan: Patient to discharge home with family support and follow-up plans in place. will monitor for HHC. Susy MOSS, RN, CM
[2023-01-22] MEDS: 0.9% Normal Saline 1,000 ML 100 ML IV (15:02)
[2023-01-22] MEDS: Gabapentin 100 MG Capsule 200 MG PO (17:04)
--- NOTE | 2023-01-22 17:30 | NURSING ---
blood sugar is 193 at this time per pts own glucometer.
--- NOTE | 2023-01-22 17:40 | PCM.PN.HOSP ---
Subjective Subjective Patient was seen and examined today, patient's affect was very dull, I had a long conversation with his over the phone and she stated that for the last several months (approximately 9 months) patient's mentation has changed and he sleeps quite a bit and he has been having trouble paying his bills, she also stated that at one time she caught him trying to transfer money to an unknown person on the Internet at their request by phone. Patient's also states that the patient asked to be woken up from sleep to give as needed pain medications which she refused to do. Patient's creatinine is elevated today at 2.75, I have elected to admit the patient and give him fluids, I will also adjust his pain medications, it is unknown whether the patient could have underlying dementia. Patient's potassium today was 3.4. Objective Data Objective Data Vital Signs: Vital Signs Temp Pulse Resp BP Pulse Ox O2 Del Method O2 Flow Rate 98.3 F 77 18 118/64 97 Room Air 2 01/22/23 13:42 01/22/23 13:42 01/22/23 13:42 01/22/23 13:42 01/22/23 13:42 01/22/23 13:45 01/21/23 17:12 Oxygen Flow Rate (L/min) 2 Oxygen Delivery Method Room Air Weight: 109.543 kg Body Mass Index (BMI) 36.7 Intake & Output: Intake and Output for Last 24 Hours 01/20/23 01/21/23 01/22/23 23:59 23:59 23:59 Intake Total 300.00 / 300.00 1040 / 1040 Balance 300.00 / 300.00 1040 / 1040 Lab / Micro Data Result Diagrams: 01/21/23 10:50 01/23/23 04:13 Labs: Laboratory Results - last 24 hr 01/22/23 06:27: Sodium 128 L, Potassium 3.4 L, Chloride 85 L, Carbon Dioxide 37.0 H, Anion Gap 6, BUN 66 H, Creatinine 2.75 H, Estim Creat Clear Calc 21.07, Est GFR (MDRD) Af Amer 29 L, Est GFR (MDRD) Non-Af 24 L, BUN/Creatinine Ratio 24.0 H, Glucose 275 H, Calcium 9.2, Total Bilirubin 2.40 H, Direct Bilirubin 0.37 H, AST 52 H, ALT 27, Alkaline Phosphatase 60, Total Protein 7.5, Albumin 3.2, Globulin 4.3 H Micro: Microbiology 01/21/23 10:45 Nasal Secretion SARS-CoV-2 & FLU Antigen (Rapid) - Final Rhythm Strip Rhythm Strip: Sinus Rhythm Rate: 95 Ectopy: None Physical Exam Const alert, oriented x3, no apparent distress and average body habitus General Appearance: cooperative, well kempt and well developed Orientation / Consciousness: awake, oriented to person and oriented to place HEENT normocephalic, head/scalp atraumatic and moist oral mucous membranes Eyes PERRL, EOMs intact bilaterally and conjunctivae normal Neck supple, no JVD, thyroid normal and no carotid bruits General: trachea midline Resp normal respiratory effort, no retractions, no use of accessory muscles and clear to auscultation bilaterally Auscultation: Negative for rales, rhonchi or wheezes Cardio regular rate, regular rhythm, S1 normal heart sound, S2 normal heart sound, no murmurs, no rub and no gallops GI normal to inspection, nondistended, normoactive bowel sounds, soft to palpation, non-tender and non-distended Extremity no clubbing, cyanosis or edema Skin no rashes or lesions noted General Skin Exam: no breakdown Neuro oriented x3, CN's II-XII intact bilaterally, moves all extremities, no focal motor deficits and no sensory deficits noted Sensorium / Orientation: awake, alert, oriented to person and oriented to place Speech: speech normal Psych affect normal Assessment & Plan Assessment/Plan (1) Muscular deconditioning: PLAN: Plan 1. Hypokalemia-probably secondary to use of Lasix as outpatient, patient's Lasix will be held at this time, potassium replacement will be given, labs will be monitored #2 elevated creatinine-probably secondary to dehydration, again patient's Lasix will be held, fluids will be administered #3 coronary artery disease-this appears to be stable at this time, continue present medications with exception of Lasix #4 generalized weakness-etiology unclear, PT and OT will see the patient #5 type 2 diabetes-patient's blood sugars will be monitored, sliding scale insulin be used #6 cardiomyopathy with intermediate ejection fraction-patient has a history of reduced ejection fraction, his last echocardiogram showed an EF of 45%-I have elected to place patient on losartan at this time, he is not on an GRETEL inhibitor due to an allergy listed as a cough. #7 cognitive impairment-this is according to patient's , I had a lengthy conversation with her today, I have elected to order an MRI this Tuesday to rule out any possibility of stroke related dementia. I have also decided at this time to reduce the patient's gabapentin due to the sedating properties of this medication. Patient was made a full admission today. Total clinical time spent by myself addressing the patient's medical issues, reviewing the patient's medical data, and collaborating with patient's care team: 35 minutes Charges/Coding Visit Charges Inpatient E&M: 78935 Subs Hosp L2
[2023-01-22 22:30] VITALS: BP 93/55; PULSE 77; RESP 18; TEMP 36.6; O2SAT 96
[2023-01-22 22:34] VITALS: BP 98/74
--- NOTE | 2023-01-22 22:36 | NURSING ---
pt's blood sugar is 252 per pt's free style delphine
[2023-01-22] MEDS: Tamsulosin HCl 0.4 MG Capsule PO (22:38)
[2023-01-23] MEDS: 0.9% Normal Saline 1,000 ML 100 ML IV ×2 (01:00→10:13)
[2023-01-23 01:02] VITALS: BP 100/59; PULSE 69
[2023-01-23] MEDS: Acetaminophen 325 MG Tablet 650 MG PO (01:05)
[2023-01-23 04:40] LABS: Anion Gap 4 (5-15); BUN 64 mg/dL (7-18); BUN/Creat Ratio 29.4 RATIO (10-20); Calcium,Total 8.7 mg/dL (8.5-10.1); Chloride 92 mmol/L (98-107); Creatinine, Serum 2.18 mg/dL (0.70-1.30); EST Glomerular Filtration Rate 31 mL/min (>60); Est Glom Filt Rate - Afr Amer 38 mL/min (>60); Estimated Creatinine Clearance 26.58 ml/min; Glucose 155 mg/dL (74-106); Sodium Level 133 mmol/L (136-145)
[2023-01-23 06:43] VITALS: BP 116/75; PULSE 67; RESP 18; TEMP 36.5; O2SAT 93
--- NOTE | 2023-01-23 06:47 | NURSING ---
pt's blood sugar is 120 per pt's free style delphine
[2023-01-23 08:44] VITALS: BP 113/66; PULSE 69; RESP 18; TEMP 36.5; O2SAT 97
[2023-01-23] MEDS: Carvedilol 3.125 MG TABLET PO ×2 (08:48→16:38)
[2023-01-23] MEDS: Potassium Chloride Oral Tablet 20 MEQ PO ×2 (08:48→16:38)
[2023-01-23] MEDS: Mirabegron 25 MG TAB.ER.24H PO (08:49)
[2023-01-23] MEDS: Losartan Potassium 25 MG Tablet PO (08:49)
[2023-01-23] MEDS: Gabapentin 100 MG Capsule 200 MG PO ×3 (08:53→16:37)
[2023-01-23] MEDS: Insulin Glargine-YFGN 100 UNIT/ML Pen 36 UNIT SC (08:54)
[2023-01-23] MEDS: Potassium Chloride Oral Tablet 20 MEQ 40 MEQ PO ×2 (10:12→19:27)
[2023-01-23] MEDS: Insulin Lispro 100 UNIT/ML INSULN.PEN 8 UNIT SC ×2 (12:04→16:38)
[2023-01-23] MEDS: Insulin Lispro 100 UNIT/ML INSULN.PEN SC ×2 (12:04→16:38)
[2023-01-23 12:25] LABS: Bedside Glucose 294 mg/dL (74-106)
[2023-01-23 14:32] VITALS: BP 101/60; PULSE 60; RESP 18; TEMP 36.7; O2SAT 94
[2023-01-23 16:34] VITALS: BP 126/70; PULSE 66; RESP 18; TEMP 35.8; O2SAT 98
--- NOTE | 2023-01-23 18:52 | PN.HOSP_ITS ---
Reason for Visit Reason for Visit: Diagnoses Other symptoms and signs involving the musculoskeletal system (01/22/23) Subjective Subjective Patient was seen and examined today, I talked with his was in the room at the time of my examination, patient denied any cognitive impairment at home and states he was doing well and denied any problems with bill paying or executive functioning at home. I told him that I would advise him to undergo an MRI because there is some concern by his that his cognitive abilities have diminished over the last few months. Patient's potassium was low today at 3, creatinine was improved at 2.18, patient remains on room air and does not appear to be showing any signs of congestive heart failure. I decided at this time to reduce patient's IV fluids and repeat his labs tomorrow as well as obtain an MRI of the brain. Objective Data Objective Data Vital Signs: Vital Signs Temp Pulse Resp BP Pulse Ox O2 Del Method O2 Flow Rate 96.5 F L 66 18 126/70 H 98 Room Air 2 01/23/23 16:34 01/23/23 16:34 01/23/23 16:34 01/23/23 16:34 01/23/23 16:34 01/23/23 16:34 01/21/23 17:12 Oxygen Flow Rate (L/min) 2 Oxygen Delivery Method Room Air Weight: 109.543 kg Body Mass Index (BMI) 36.7 Intake & Output: Intake and Output for Last 24 Hours 01/21/23 01/22/23 01/23/23 23:59 23:59 23:59 Intake Total 300.00 / 300.00 1040 / 1040 2068.34 / 2067.34 Output Total 200 / 200 Balance 300.00 / 300.00 840 / 840 2067. / 2067.34 Lab / Micro Data Result Diagrams: 01/21/23 10:50 01/23/23 04:13 Labs: Laboratory Results - last 24 hr 01/23/23 04:13: Sodium 133 L, Potassium 3.0 L, Chloride 92 L, Carbon Dioxide 37.0 H, Anion Gap 4 L, BUN 64 H, Creatinine 2.18 H, Estim Creat Clear Calc 26.58, Est GFR (MDRD) Af Amer 38 L, Est GFR (MDRD) Non-Af 31 L, BUN/Creatinine Ratio 29.4 H, Glucose 155 H, Calcium 8.7 01/23/23 12:02: POC Glucose 294 H Micro: Microbiology 01/21/23 10:45 Nasal Secretion SARS-CoV-2 & FLU Antigen (Rapid) - Final Rhythm Strip Rhythm Strip: Sinus Rhythm Rate: 95 Ectopy: None Physical Exam Narrative alert, oriented x3, no apparent distress and average body habitus General Appearance: cooperative, well kempt and well developed Orientation / Consciousness: awake, oriented to person and oriented to place HEENT normocephalic, head/scalp atraumatic and moist oral mucous membranes Eyes PERRL, EOMs intact bilaterally and conjunctivae normal Neck supple, no JVD, thyroid normal and no carotid bruits General: trachea midline Resp normal respiratory effort, no retractions, no use of accessory muscles and clear to auscultation bilaterally Auscultation: Negative for rales, rhonchi or wheezes Cardio regular rate, regular rhythm, S1 normal heart sound, S2 normal heart sound, no murmurs, no rub and no gallops GI normal to inspection, nondistended, normoactive bowel sounds, soft to palpation, non-tender and non-distended Extremity no clubbing, cyanosis or edema Skin no rashes or lesions noted General Skin Exam: no breakdown Neuro oriented x3, CN's II-XII intact bilaterally, moves all extremities, no focal motor deficits and no sensory deficits noted Sensorium / Orientation: awake, alert, oriented to person and oriented to place Speech: speech normal Psych affect normal Assessment & Plan Assessment/Plan (1) Muscular deconditioning: PLAN: Plan 1. Hypokalemia-probably secondary to use of Lasix as outpatient, I believe the patient probably will require Lasix as an outpatient due to intermediate ejection fraction, I will start the patient on 40 mg of Lasix once a day starting tomorrow morning. Patient will need to increase potassium supplementation when he is discharged home. #2 elevated creatinine-probably secondary to dehydration, again patient's Lasix will be held, fluids will be administered, I have elected to decrease the IV rate to 75 cc/h, again patient's Lasix is being held, Lasix will be reinstituted at a once a day dose tomorrow morning. #3 coronary artery disease-this appears to be stable at this time, continue present medications with exception of Lasix #4 generalized weakness-etiology unclear, PT and OT will see the patient #5 type 2 diabetes-patient's blood sugars will be monitored, sliding scale insulin be used #6 cardiomyopathy with intermediate ejection fraction-patient has a history of reduced ejection fraction, his last echocardiogram showed an EF of 45%-I have elected to place patient on losartan at this time, he is not on an GRETEL inhibitor due to an allergy listed as a cough. #7 cognitive impairment-this is according to patient's , I had a lengthy conversation with her today, I have elected to order an MRI this Tuesday to rule out any possibility of stroke related dementia. I have also decided at this time to reduce the patient's gabapentin due to the sedating properties of this medication. Patient was made a full admission today. Total clinical time spent by myself addressing the patient's medical issues, re viewing the patient's medical data, and collaborating with patient's care team: 35 minutes Charges/Coding Visit Charges Inpatient E&M: 20778 Subs Hosp L2
[2023-01-23] MEDS: 0.9% Normal Saline 1,000 ML 75 ML IV (19:26)
--- NOTE | 2023-01-23 19:42 | NURSING ---
mri questions clarified w maylin
[2023-01-23] MEDS: Tamsulosin HCl 0.4 MG Capsule PO (22:05)
[2023-01-23 22:40] VITALS: BP 96/61; PULSE 69; RESP 18; TEMP 37; O2SAT 98
[2023-01-24] VITALS (8 sets, daily range): BP systolic 104–129; BP diastolic 50–77; PULSE 65–80; RESP 13–24; TEMP 36.5–37.1; O2SAT 92–98
[2023-01-24] MEDS: 0.9% Normal Saline 1,000 ML 75 ML IV (05:54)
[2023-01-24 06:41] LABS: Anion Gap 4 (5-15); BUN 40 mg/dL (7-18); BUN/Creat Ratio 25.6 RATIO (10-20); Calcium,Total 8.9 mg/dL (8.5-10.1); Chloride 99 mmol/L (98-107); Creatinine, Serum 1.56 mg/dL (0.70-1.30); EST Glomerular Filtration Rate 46 mL/min (>60); Est Glom Filt Rate - Afr Amer 55 mL/min (>60); Estimated Creatinine Clearance 37.15 ml/min; Glucose 244 mg/dL (74-106); Potassium 3.6 mmol/L (3.5-5.1); Sodium Level 135 mmol/L (136-145)
[2023-01-24] MEDS: Insulin Lispro 100 UNIT/ML INSULN.PEN SC ×2 (07:26→11:09)
[2023-01-24] MEDS: Insulin Lispro 100 UNIT/ML INSULN.PEN 8 UNIT SC ×3 (07:26→17:10)
[2023-01-24] MEDS: Gabapentin 100 MG Capsule 200 MG PO ×3 (07:28→17:12)
[2023-01-24] MEDS: HYDROcodone Bitartrate/Apap 5/325 Tablet PO (07:28)
[2023-01-24] MEDS: Potassium Chloride Oral Tablet 20 MEQ PO ×2 (07:29→17:11)
[2023-01-24] MEDS: Insulin Glargine-YFGN 100 UNIT/ML Pen 36 UNIT SC (07:29)
[2023-01-24] MEDS: Furosemide 40 MG Tablet PO (07:29)
[2023-01-24] MEDS: Carvedilol 3.125 MG TABLET PO ×2 (07:29→17:10)
[2023-01-24] MEDS: Losartan Potassium 25 MG Tablet PO (07:29)
[2023-01-24] MEDS: Mirabegron 25 MG TAB.ER.24H PO (07:30)
--- NOTE | 2023-01-24 11:18 | NURSING ---
pt blood sugar 192
--- NOTE | 2023-01-24 14:12 | CASEMGMT ---
Addendum entered by Anna Cool 01/24/23 14:23: TC to therapy to see if able to complete pt assessment this date as the order was just obtained today. Original Note: ANIBAL JHA into pt room, pt sitting on folded chair going through items in his closet. Discussed with patient dc planning. Pt is upset as he states he does not know what is going on. Pt asks this ANIBAL JHA to call his . TC to pt . She states that pt seems agitated. She states that he called her and wanted her to bring his clippers as there is a man here that will cut his hair. states that she did bring them in and pt was agitated so she left. She states she is awaiting results of the MRI. She is aware this has not been completed yet. She states that pt has been having difficulty with his medications at home and has been weaker than usual. She is aware that therapy will work with patient as well. ANIBAL JHA to follow.
--- NOTE | 2023-01-24 14:30 | MRI_ITS ---
STUDY: MRI BRAIN WITHOUT CONTRAST REASON FOR EXAM: Male, 77 years old. cognitive decline, r/o CVA TECHNIQUE: Standardized multiplanar fat and water weighted pulse sequences were obtained. COMPARISON: CT of the brain May 21, 2022 FINDINGS: Mild cerebral atrophy and minimal periventricular white matter hyperintensity consistent with normal aging. No significant white matter disease or evidence for acute infarct Normal bilateral basal ganglia. Normal thalami. There is no extra-axial fluid accumulation. Normal flow voids within the major intracranial circulation suggesting patency by spin echo criteria. Normal sella turcica, pituitary gland, infundibular stalk, optic chiasm and hypothalamus. Normal tectal plate and pineal gland. Normal midbrain, ken and medulla. Normal cerebellum. Normal basal cisterns. Normal bilateral temporal bones. Normal bilateral internal auditory canals. No demonstrated orbital abnormality, within the constraints of a routine brain study. Normal visualized paranasal sinuses. Normal calvarium and skull base. Normal visualized soft tissue structures. Normal visualized upper cervical spine. MRI/Brain without Contrast IMPRESSION: Mild atrophy. No significant white matter disease or evidence for acute infarct Electronically Signed: Randall Waite MD at 16:50 EDT ,
[2023-01-24] MEDS: LORazepam 2 MG/ML Syringe IV (14:44)
[2023-01-24] MEDS: 0.9% Saline Lock 10 ML Syringe IV (14:44)
--- NOTE | 2023-01-24 15:46 | NURSING ---
Pt moving arms and legs throughout entire MRI, multiple attempts made to redirect pt without success. With 3 minutes left in scan, pt removed the head coil. As pt's monitor was being taken out of the room pt pulled out his IV. MS3 made aware.
--- NOTE | 2023-01-24 16:32 | CHAPLAIN ---
Type of Pastoral Visit _x__ Initial Visit ___ Follow-up Visit ___ On-call Visit ___ General Patient Visit ___ Spiritual Assessment ___ Family Conference ___ Bereavement ___ Rapid Response ___ Code Blue ___ Other (describe below) Pastoral Care Referral From _x__ Patient ___ Family ___ Nurse ___ Physician ___ Geographic Information Systems Analyst ___ Nicu Rn ___ Other (describe below) Sacrament/Intervention _x__ Active listening ___ Anointing ___ Congregational ___ Bereavement ___ Communion ___ Bel[place] exploration ___ ___ Life review _x__ Prayer ___ Reconciliation ___ Sacrament of Sick _x__ Supportive presence ___ Wedding ___ Other (describe below) Pastoral Comments patient is lying in bed waiting for transfer to MRI; pt keeps his eyes closed and states I don't know what is going on, my isn't talking to me; and I'm in such pain; during this visit RN came to give meds before testing; patient appears distressed; this forestry biology specialist gave calm presence and attempted to help pt focus on positives, things to think about that might be helpful, and prayer
--- NOTE | 2023-01-24 17:07 | PN.HOSP_ITS ---
Reason for Visit Reason for Visit: Diagnoses Other symptoms and signs involving the musculoskeletal system (01/22/23) Follow-up for generalized weakness, increased creatinine hypokalemia and possible dementia Objective Data Objective Data Vital Signs: Vital Signs Temp Pulse Resp BP Pulse Ox O2 Del Method O2 Flow Rate 98.8 F 71 13 127/50 H 96 Nasal Cannula 2 01/24/23 15:06 01/24/23 15:35 01/24/23 15:35 01/24/23 15:24 01/24/23 15:35 01/24/23 15:35 01/24/23 15:35 Oxygen Flow Rate (L/min) 2 Oxygen Delivery Method Nasal Cannula Weight: 241 lb 8 oz Body Mass Index (BMI) 36.7 Intake & Output: Intake and Output for Last 24 Hours 01/22/23 01/23/23 01/24/23 23:59 23:59 23:59 Intake Total 1040 / 1040 3240.01 / 3240.01 2167.5 / 2167.5 Output Total 200 / 200 650 / 650 Balance 840 / 840 3240.01 / 3240.01 1517.5 / 1517.5 Lab / Micro Data Result Diagrams: 01/21/23 10:50 01/24/23 05:16 Labs: Laboratory Results - last 24 hr 01/24/23 05:16: Sodium 135 L, Potassium 3.6, Chloride 99, Carbon Dioxide 32.0, Anion Gap 4 L, BUN 40 H, Creatinine 1.56 H, Estim Creat Clear Calc 37.15, Est GFR (MDRD) Af Amer 55 L, Est GFR (MDRD) Non-Af 46 L, BUN/Creatinine Ratio 25.6 H , Glucose 244 H, Calcium 8.9 Micro: Microbiology 01/21/23 10:45 Nasal Secretion SARS-CoV-2 & FLU Antigen (Rapid) - Final Radiography Diagnostic Testing: Radiology Impression Brain MRI 01/24/23 14:30 IMPRESSION: Mild atrophy. No significant white matter disease or evidence for acute infarct Electronically Signed: Randall Waite MD at 16:50 EDT , Rhythm Strip Rhythm Strip: Sinus Rhythm Rate: 95 Ectopy: None Physical Exam Narrative Seen and examined. Patient was admitted with generalized weakness. Physical exam General: Alert, Oriented x3, Cooperative HEENT: Atraumatic, PERRLA, EOMI, Normocephalic Oral: Oral mucosa moist. No Gingival or Mucosal Lesions/ Ulcerations Neck: Supple, No JVD, Negative Carotid Bruits Lungs: Air entry diminished in bilateral lung bases. No crepitation/rhonchi Cardiovascular: Regular rate, Regular Rhythm, Normal S1, Normal S2, No murmurs Abdomen: Bowel Sounds Present, Soft, Non Tender, Non-Distended : No renal angle tenderness. No suprapubic tenderness. Extremities: No edema, Capillary Refill Less than 3 Seconds Skin: No rashes, No breakdown Musculoskeletal: No Tenderness to Palpation of Joints or Extremities. Muscle strength 4+/5 at knee and hip joints. Disequilibrium. Neurological: Cranial nerves II-XII grossly intact, DTR 2+/4 and Symmetrical, Neuro grossly intact Psych/Mental Status: Mild for greatness fullness, amnesia. Difficult to recall and register. Possible early dementia Assessment & Plan Assessment/Plan (1) Muscular deconditioning: PLAN: Plan 1. Hypokalemia-probably secondary to use of Lasix as outpatient, potassium was replaced. Today and 3.6. Lasix was resumed 40 mg from today. #2 SUMAN on CKD stage 4: Patient baseline creatinine probably around 2.2-2.5. He was admitted with 2.75. Lasix was held. Creatinine is 1.56. Baseline creatinine clearance is about 26 mL/min. SUMAN is resolved. #3 coronary artery disease-this appears to be stable at this time, continue present medications with exception of Lasix #4 generalized weakness-etiology unclear, PT and OT will see the patient #5 type 2 huominps-Jmrg-Nrdi before meals and at bedtime, sliding scale insulin be used Blood sugars are high therefore Humalog and Lantus insulin increased #6: Chronic HFrEF with ischemic cardiomyopathy: patient has a history of reduced ejection fraction, his last echocardiogram showed an EF of 45%-on losartan , he is not on an GRETEL inhibitor due to an allergy listed as a cough. #7 cognitive impairment-this is according to patient's exact classification and etiology unclear. May be vascular dementia from atherosclerosis. MRI was done does not show acute intracranial change. Laboratory Results 01/24/23 05:16: Sodium 135 L, Potassium 3.6, Chloride 99, Carbon Dioxide 32.0, Anion Gap 4 L, BUN 40 H, Creatinine 1.56 H, Estim Creat Clear Calc 37.15, Est GFR (MDRD) Af Amer 55 L, Est GFR (MDRD) Non-Af 46 L, BUN/Creatinine Ratio 25.6 H , Glucose 244 H, Calcium 8.9 Charges/Coding Visit Charges Inpatient E&M: 02594 Subs Hosp L2
[2023-01-24] MEDS: Spironolactone 25 MG Tablet 12.5 MG PO (17:27)
[2023-01-24] MEDS: Insulin Glargine-YFGN 100 UNIT/ML Pen 40 UNIT SC (21:27)
[2023-01-24] MEDS: Tamsulosin HCl 0.4 MG Capsule PO (21:28)
[2023-01-24 23:26] LABS: Bedside Glucose 133 mg/dL (74-106)
[2023-01-25 06:16] LABS: Absolute Lymphocyte Count 1.29 X10^3/uL (0.83-4.51); Absolute Neutrophil Count 3.5 X10^3/uL (2.0-7.7); Basophil# 0.04 X10^3/uL; Basophil% 0.7 % (0-1); Eosinophil# 0.27 X10^3/uL; Eosinophils% 4.6 % (0-5); Hematocrit 43.5 % (40-54); Hemoglobin 14.6 g/dL (13.0-16.5); Lymphocyte # 1.29 X10^3/ul (0.83-4.51); Lymphocyte % 22.1 % (19-41); Mean Corp Hgb Conc 33.6 g/dL (32-36); Mean Corpuscular Hgb 32.6 pg (27.0-32.0); Mean Corpuscular Volume 97.1 fL (80-94); Mean Platelet Vol. 9.9 fl (6.2-12.0); Monocyte# 0.67 X10^3/uL; Monocyte% 11.5 % (0-10); NRBC Flagged by Analyzer 0 % (0-5); Neutrophil % 59.7 % (47-70); Platelet Count 224 K/mm3 (150-450); RBC Distribution Width CV 14.7 % (11.6-14.6); RBC Distribution Width SD 52.8 fl (35.1-43.9); Red Blood Count 4.48 M/mm3 (4.6-6.2); White Blood Count 5.9 K/mm3 (4.4-11.0)
[2023-01-25 06:37] VITALS: BP 129/77; PULSE 66; RESP 18; TEMP 36.9; O2SAT 97
[2023-01-25 07:01] LABS: Anion Gap 4 (5-15); BUN 28 mg/dL (7-18); BUN/Creat Ratio 21.4 RATIO (10-20); Chloride 102 mmol/L (98-107); Creatinine, Serum 1.31 mg/dL (0.70-1.30); EST Glomerular Filtration Rate 56 mL/min (>60); Est Glom Filt Rate - Afr Amer 68 mL/min (>60); Estimated Creatinine Clearance 44.24 ml/min; Glucose 115 mg/dL (74-106); Potassium 3.3 mmol/L (3.5-5.1); Sodium Level 136 mmol/L (136-145)
[2023-01-25 07:31] LABS: Bedside Glucose 132 mg/dL (74-106)
[2023-01-25 07:56] VITALS: BP 125/73; PULSE 54; RESP 18; TEMP 36.4; O2SAT 94
[2023-01-25] MEDS: Insulin Lispro 100 UNIT/ML INSULN.PEN 15 UNIT SC ×2 (07:58→11:10)
[2023-01-25] MEDS: Gabapentin 100 MG Capsule 200 MG PO ×2 (07:58→11:12)
[2023-01-25] MEDS: Carvedilol 3.125 MG TABLET PO (07:58)
[2023-01-25] MEDS: Spironolactone 25 MG Tablet 12.5 MG PO ×2 (07:59→11:10)
[2023-01-25] MEDS: Mirabegron 25 MG TAB.ER.24H PO (08:01)
[2023-01-25] MEDS: Losartan Potassium 25 MG Tablet PO (08:02)
[2023-01-25] MEDS: Furosemide 40 MG Tablet PO (08:02)
[2023-01-25] MEDS: Insulin Glargine-YFGN 100 UNIT/ML Pen 40 UNIT SC (08:03)
[2023-01-25] MEDS: HYDROcodone Bitartrate/Apap 5/325 Tablet PO (08:06)
[2023-01-25 08:55] VITALS: BP 130/63; PULSE 69; RESP 16; TEMP 36.4; O2SAT 98
--- NOTE | 2023-01-25 10:11 | PCM.DC ---
Discharge Instructions Diet Discharge Diet: 1800 Calorie Control Diet, 8 Cup Fluid Restriction and 2000 mg Sodium Diet Activity Discharge Activity: Return to Normal Activity Weight Bearing Status: Weight bearing as tolerated Dressing / Incision Call your doctor if you observe: Fever of 101 or Higher, Coldness, Increased Pain, Numbness or Tingling, Change in Color, Inability to urinate, Inability to have a bowel movement, Shortness of breath, Dizziness, Fainting spells, Swelling in the ankles, Chest pain, Prolonged hiccupping, Increased palpitations (irregular heartbeat) and Calf discomfort Follow Up Care When: IN 2 WEEKS Test Results: Test results from this visit will be discussed in further detail at your follow-up appointment, if applicable. Discharge Plan Admission Admit Date/Time: 01/22/23 14:20 Attending Provider: Shay Snider Primary Care Provider: Paulo Nguyen Consulting Providers: Daniel Rosa Instructions Additional Instructions / Restrictions: Follow-up PCP with BMP, magnesium and phosphorus in 1 week and titrate the medications accordingly. Discharge Orders/Prescriptions Prescriptions: New furosemide 40 mg Tablet 40 mg PO DAILY 30 Days Qty: 30 2RF Rx Instructions: Take an additional 40 mg dose at 5 PM for increased leg swelling or weight gain 5 pounds in 1 week. spironolactone 25 mg Tablet 25 mg PO DAILY 30 Days Qty: 30 1RF Rx Instructions: Hold if potassium more than 5.0 losartan 25 mg Tablet 25 mg PO DAILY 30 Days Qty: 30 2RF Continued tamsulosin 0.4 mg capsule 0.4 mg PO QHS cholecalciferol (vitamin D3) 50 mcg (2,000 unit) capsule 50 mcg PO DAILY docusate sodium [Colace] 100 mg capsule 100 mg PO BID krill oil 500 mg capsule 500 mg PO DAILY mirabegron 25 mg tablet extended release 24 hr 25 mg PO DAILY hydrocodone-acetaminophen 5-325 mg tablet 1 tab PO Q6H PRN PRN (Reason: Pain) carvedilol 3.125 mg tablet 3.125 mg PO BIDCM Qty: 180 3RF folic acid 0.4 MG tablet 400 mcg PO DAILY pravastatin 80 mg tablet 80 mg PO DAILY naloxone 0.4 mg/0.4 mL Auto-Injector 4 mg Trulicity 0.75 mg/0.5 mL Pen Injector 0.75 mg SUBCUT QWEEK albuterol sulfate 90 mcg/actuation HFA aerosol inhaler 2 puff INHALATION Q4H PRN PRN (Reason: Shortness Of Breath) baclofen 10 mg tablet 10 mg PO TID PRN (Reason: Muscle pain/spasm) Qty: 90 3RF nitroglycerin 0.4 mg tablet, sublingual 0.4 mg sublingual Q5-15M PRN (Reason: Chest Pain) Rx Instructions: do not exceed 3 doses per episode Changed gabapentin 600 mg tablet 300 mg PO TID 30 Days Qty: 0 0RF acetaminophen 500 mg Tablet 1,000 mg PO Q8H PRN PRN (Reason: Pain Score 1-3) Qty: 0 0RF insulin aspart U-100 [Novolog U-100 Insulin aspart] 100 unit/mL solution 15 unit subcut TID Qty: 10 2RF insulin glargine [Basaglar KwikPen U-100 Insulin] 100 unit/mL (3 mL) insulin pen 40 unit subcut BID Qty: 15 4RF Discontinued potassium chloride 20 mEq tablet extended release 20 meq PO DAILY furosemide 40 mg tablet 40 mg PO BID Qty: 270 3RF Referrals / Follow Up: Paulo Nguyen MD [Primary Care Provider] - Roxie Daley MD [Med Staff - Consulting] - Within 2 Weeks (SUMAN) Kayleigh Guillen NP, [employer] [Non-Staff -Ordering Privileges] - Within 1 Month Disposition Disposition (needs filled in before D/C Order can be placed): Home Health Service
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
[2023-01-25] MEDS: Insulin Lispro 100 UNIT/ML INSULN.PEN SC (11:10)
--- NOTE | 2023-01-25 11:11 | DS.PCM_ITS ---
Providers Date of Admission: 01/22/23 Date of Discharge: 01/25/23 Primary Care Physician: Dr. Paulo Nguyen MD Reason For Visit: HYPOKALEMIA Diagnosis Discharge Diagnosis (1) Muscular deconditioning: Status: Acute Code(s): R29.898 - Other symptoms and signs involving the musculoskeletal system Plan 1. Hypokalemia-probably secondary to use of Lasix as outpatient, potassium was replaced. Today and 3.6. Lasix was resumed 40 mg from today. 01/20: Patient was started on spironolactone 12.5 mg daily and increase to 25 mg daily. Potassium supplement discontinued. #2 SUMAN on CKD stage 4: Patient baseline creatinine probably around 2.2-2.5. He was admitted with 2.75. Lasix was held. Creatinine is 1.56. Baseline creatinine clearance is about 26 mL/min. SUMAN is resolved. 01/25: Patient is discharged on Lasix 40 mg daily, spironolactone 25 mg daily and losartan 25 mg daily. Advised BMP, magnesium and phosphorus in 1 week follow with PCP. Follow-up with passenger coach driver Dr. Daley in 2 weeks. #3 coronary artery disease-this appears to be stable at this time, continue present medications with exception of Lasix #4 generalized weakness-etiology unclear, PT and OT will see the patient. Keith mojica agreed to home discharge with home health. #5 type 2 [id number]-[id number]-Sufs before meals and at bedtime, sliding scale insulin be used Blood sugars are high therefore Humalog and Lantus insulin increased 01/25: Glucose is more controlled in 130s. Continue the increased dose of Humalog and Lantus insulin along with Accu-Cheks before meals and at bedtime and follow with PCP to titrate the dose of insulin. #6: Chronic HFrEF with ischemic cardiomyopathy: patient has a history of reduced ejection fraction, his last echocardiogram showed an EF of 45%-on losartan , he is not on an GRETEL inhibitor due to an allergy listed as a cough. Echo also shows mild MR trivial TR RVSP 25 mmHg. 01/25: Patient had cardiology visit with William Diego NP on 01/12/2023. PCP increased to Lasix 40 mg twice daily and metolazone resulting into SUMAN. Advised follow-up with cardiology office in 1 month. #7 cognitive impairment-this is according to patient's exact classification and etiology unclear. May be vascular dementia from atherosclerosis. MRI was done does not show acute intracranial change. Follow with the titration Discharge medication reconciliation done. Discharge follow-up instructions completed. Discharge process discussed with the patient and all questions were answered to patient's satisfaction. Total time spent, exact 35 minutes on discharge meds reconciliation, examination, coordination of care with nurses and ancillary staff, review of imaging and blood test and discussion with the patient on follow-up instructions. Laboratory Results 01/24/23 21:23: POC Glucose 133 H 01/25/23 06:05: WBC 5.9, RBC 4.48 L, Hgb 14.6, Hct 43.5, MCV 97.1 H, MCH 32.6 H, MCHC 33.6, RDW Std Deviation 52.8 H, RDW Coeff of Susan 14.7 H, Plt Count 224, MPV 9.9, Immature Gran % (Auto) 1.400 H, Neut % (Auto) 59.7, Lymph % (Auto) 22.1, Davis % (Auto) 11.5 H, Eos % (Auto) 4.6, Baso % (Auto) 0.7, Absolute Neuts (auto) 3.5, Absolute Lymphs (auto) 1.29, Nucleated RBC % 0 01/25/23 06:05: Sodium 136, Potassium 3.3 L, Chloride 102, Carbon Dioxide 30.0, Anion Gap 4 L, BUN 28 H, Creatinine 1.31 H, Estim Creat Clear Calc 44.24, Est GFR (MDRD) Af Amer 68, Est GFR (MDRD) Non-Af 56 L, BUN/Creatinine Ratio 21.4 H, Glucose 115 H, Calcium 9.0 01/25/23 06:39: POC Glucose 132 H Medications at Discharge Home Medications folic acid 400 mcg tablet 400 mcg PO DAILY supplement 10/19/19 tamsulosin 0.4 mg capsule 0.4 mg PO QHS BPH 07/02/20 pravastatin 80 mg tablet 80 mg PO DAILY cholesterol 05/15/21 docusate sodium 100 mg capsule (Colace) 100 mg PO BID 10/29/21 krill oil 500 mg capsule 500 mg PO DAILY 10/29/21 mirabegron 25 mg tablet,extended release 24 hr 25 mg PO DAILY 10/29/21 baclofen 10 mg tablet 10 mg PO TID PRN Muscle pain/spasm #90 tabs 11/02/21 cholecalciferol (vitamin D3) 50 mcg (2,000 unit) capsule 50 mcg PO DAILY 01/28/22 dulaglutide 0.75 mg/0.5 mL subcutaneous pen injector (Trulicity) 0.75 mg subcut QWEEK 05/25/22 naloxone 0.4 mg/0.4 mL injection, auto-injector 4 mg 05/25/22 carvedilol 3.125 mg tablet 3.125 mg PO BIDCM #180 tabs 08/02/22 nitroglycerin 0.4 mg sublingual tablet 0.4 mg sublingual Q5-15M PRN Chest Pain 01/05/23 hydrocodone-acetaminophen 5-325mg 5mg-325mg 1 tab PO Q6H PRN PRN Pain 01/12/23 albuterol sulfate 90 mcg/actuation aerosol inhaler 2 puff inhalation Q4H PRN PRN Shortness Of Breath 01/21/23 acetaminophen 500 mg tablet 1,000 mg PO Q8H PRN PRN Pain Score 1-3 #0 tabs 01/25/23 furosemide 40 mg tablet 40 mg PO DAILY 30 days #30 tabs 01/25/23 gabapentin 600 mg tablet 300 mg PO TID 30 days #0 tabs 01/25/23 insulin aspart U-100 100 unit/mL subcutaneous solution (Novolog U-100 Insulin aspart) 15 unit (0.15 mL) subcut TID #10 mL 01/25/23 insulin glargine 100 unit/mL (3 mL) subcutaneous pen (Basaglar KwikPen U-100 Insulin) 40 unit (0.4 mL) subcut BID diabetes #15 mL 01/25/23 losartan 25 mg tablet 25 mg PO DAILY 30 days #30 tabs 01/25/23 spironolactone 25 mg tablet 25 mg PO DAILY 30 days #30 tabs 01/25/23 Physical Exam Narrative Seen and examined. I talked to the patient and his near the bedside. Patient was admitted with generalized weakness. I advised about Lasix dose. Physical exam General: Alert, Oriented x3, Cooperative HEENT: Atraumatic, PERRLA, EOMI, Normocephalic Oral: Oral mucosa moist. No Gingival or Mucosal Lesions/ Ulcerations Neck: Supple, No JVD, Negative Carotid Bruits Lungs: Air entry diminished in bilateral lung bases. No crepitation/rhonchi Cardiovascular: Regular rate, Regular Rhythm, Normal S1, Normal S2, No murmurs Abdomen: Bowel Sounds Present, Soft, Non Tender, Non-Distended : No renal angle tenderness. No suprapubic tenderness. Extremities: Mild pedal edema, Capillary Refill Less than 3 Seconds Skin: No rashes, No breakdown Musculoskeletal: No Tenderness to Palpation of Joints or Extremities. Muscle strength 4+/5 at knee and hip joints. Disequilibrium. Neurological: Cranial nerves II-XII grossly intact, DTR 2+/4 and Symmetrical, Neuro grossly intact Psych/Mental Status: Mild for greatness fullness, amnesia. Difficult to recall and register. Possible early dementia Weight / BMI Weight Weight: 241 lb 8 oz Body Mass Index (BMI) 36.7 ABG / Lab / Microbiology Data Result Diagrams: 01/25/23 06:05 01/25/23 06:05 Laboratory: Laboratory Results - last 24 hr 01/24/23 21:23: POC Glucose 133 H 01/25/23 06:05: WBC 5.9, RBC 4.48 L, Hgb 14.6, Hct 43.5, MCV 97.1 H, MCH 32.6 H, MCHC 33.6, RDW Std Deviation 52.8 H, RDW Coeff of Susan 14.7 H, Plt Count 224, MPV 9.9, Immature Gran % (Auto) 1.400 H, Neut % (Auto) 59.7, Lymph % (Auto) 22.1, Davis % (Auto) 11.5 H, Eos % (Auto) 4.6, Baso % (Auto) 0.7, Absolute Neuts (auto) 3.5, Absolute Lymphs (auto) 1.29, Nucleated RBC % 0 01/25/23 06:05: Sodium 136, Potassium 3.3 L, Chloride 102, Carbon Dioxide 30.0, Anion Gap 4 L, BUN 28 H, Creatinine 1.31 H, Estim Creat Clear Calc 44.24, Est GFR (MDRD) Af Amer 68, Est GFR (MDRD) Non-Af 56 L, BUN/Creatinine Ratio 21.4 H, Glucose 115 H, Calcium 9.0 01/25/23 06:39: POC Glucose 132 H Microbiology: Microbiology 01/21/23 10:45 Nasal Secretion SARS-CoV-2 & FLU Antigen (Rapid) - Final Radiography Diagnostic Testing: Radiology Impression Brain MRI 01/24/23 14:30 IMPRESSION: Mild atrophy. No significant white matter disease or evidence for acute infarct Electronically Signed: Randall Waite MD at 16:50 EDT Reading Location ID and State: [address] [place] [address] , Service support , D/C Instructions Discharge Diet: 1800 Calorie Control Diet, 8 Cup Fluid Restriction and 2000 mg Sodium Diet Weight Bearing Status: Weight bearing as tolerated Call your doctor if you observe: Fever of 101 or Higher, Coldness, Increased Pain, Numbness or Tingling, Change in Color, Inability to urinate, Inability to have a bowel movement, Shortness of breath, Dizziness, Fainting spells, Swelling in the ankles, Chest pain, Prolonged hiccupping, Increased palpitations (irregular heartbeat) and Calf discomfort When: IN 2 WEEKS Meaningful Use Info Meaningful Use Diagnoses (Choose all that apply): None applicable Discharge Plan Admission Admit Date/Time: 01/22/23 14:20 Attending Provider: Shay Snider Primary Care Provider: Paulo Nguyen Consulting Providers: Daniel Rosa Instructions Additional Instructions / Restrictions: Follow-up PCP with BMP, magnesium and phosphorus in 1 week and titrate the med ications accordingly. Discharge Orders/Prescriptions Prescriptions: New furosemide 40 mg Tablet 40 mg PO DAILY 30 Days Qty: 30 2RF Rx Instructions: Take an additional 40 mg dose at 5 PM for increased leg swelling or weight gain 5 pounds in 1 week. spironolactone 25 mg Tablet 25 mg PO DAILY 30 Days Qty: 30 1RF Rx Instructions: Hold if potassium more than 5.0 losartan 25 mg Tablet 25 mg PO DAILY 30 Days Qty: 30 2RF Continued tamsulosin 0.4 mg capsule 0.4 mg PO QHS cholecalciferol (vitamin D3) 50 mcg (2,000 unit) capsule 50 mcg PO DAILY docusate sodium [Colace] 100 mg capsule 100 mg PO BID krill oil 500 mg capsule 500 mg PO DAILY mirabegron 25 mg tablet extended release 24 hr 25 mg PO DAILY hydrocodone-acetaminophen 5-325 mg tablet 1 tab PO Q6H PRN PRN (Reason: Pain) carvedilol 3.125 mg tablet 3.125 mg PO BIDCM Qty: 180 3RF folic acid 0.4 MG tablet 400 mcg PO DAILY pravastatin 80 mg tablet 80 mg PO DAILY naloxone 0.4 mg/0.4 mL Auto-Injector 4 mg Trulicity 0.75 mg/0.5 mL Pen Injector 0.75 mg SUBCUT QWEEK albuterol sulfate 90 mcg/actuation HFA aerosol inhaler 2 puff INHALATION Q4H PRN PRN (Reason: Shortness Of Breath) baclofen 10 mg tablet 10 mg PO TID PRN (Reason: Muscle pain/spasm) Qty: 90 3RF nitroglycerin 0.4 mg tablet, sublingual 0.4 mg sublingual Q5-15M PRN (Reason: Chest Pain) Rx Instructions: do not exceed 3 doses per episode Changed gabapentin 600 mg tablet 300 mg PO TID 30 Days Qty: 0 0RF acetaminophen 500 mg Tablet 1,000 mg PO Q8H PRN PRN (Reason: Pain Score 1-3) Qty: 0 0RF insulin aspart U-100 [Novolog U-100 Insulin aspart] 100 unit/mL solution 15 unit subcut TID Qty: 10 2RF insulin glargine [Basaglar KwikPen U-100 Insulin] 100 unit/mL (3 mL) insulin pen 40 unit subcut BID Qty: 15 4RF Discontinued potassium chloride 20 mEq tablet extended release 20 meq PO DAILY furosemide 40 mg tablet 40 mg PO BID Qty: 270 3RF Referrals / Follow Up: Paulo Nguyen MD [Primary Care Provider] - Roxie Daley MD [Med Staff - Consulting] - Within 2 Weeks (SUMAN) Kayleigh Guillen NP, [employer] ACCOUNT EXECUTIVE-C [Non-Staff -Ordering Privileges] - Within 1 Month Disposition Disposition (needs filled in before D/C Order can be placed): Home Health Service Charges/Coding Visit Charges Inpatient E&M: 02420 Disch Hosp >30min
[2023-01-25 11:36] LABS: Bedside Glucose 157 mg/dL (74-106)
--- NOTE | 2023-01-25 14:04 | PHA.DC.MR ---
Pharmacy Service has performed discharge medication reconciliation for this patient. The patient's discharge medication list was reviewed for discrepancies and discrepancies were resolved. Medication education papers prepared, patient discharged before I was able to deputy chief counsel. Home Medications folic acid 400 mcg tablet 400 mcg PO DAILY supplement 10/19/19 tamsulosin 0.4 mg capsule 0.4 mg PO QHS BPH 07/02/20 pravastatin 80 mg tablet 80 mg PO DAILY cholesterol 05/15/21 docusate sodium 100 mg capsule (Colace) 100 mg PO BID 10/29/21 krill oil 500 mg capsule 500 mg PO DAILY 10/29/21 mirabegron 25 mg tablet,extended release 24 hr 25 mg PO DAILY 10/29/21 baclofen 10 mg tablet 10 mg PO TID PRN Muscle pain/spasm #90 tabs 11/02/21 cholecalciferol (vitamin D3) 50 mcg (2,000 unit) capsule 50 mcg PO DAILY 01/28/22 dulaglutide 0.75 mg/0.5 mL subcutaneous pen injector (Andre) 0.75 mg subcut QWEEK 05/25/22 naloxone 0.4 mg/0.4 mL injection, auto-injector 4 mg 05/25/22 carvedilol 3.125 mg tablet 3.125 mg PO BIDCM #180 tabs 08/02/22 nitroglycerin 0.4 mg sublingual tablet 0.4 mg sublingual Q5-15M PRN Chest Pain 01/05/23 hydrocodone-acetaminophen 5-325mg 5mg-325mg 1 tab PO Q6H PRN PRN Pain 01/12/23 albuterol sulfate 90 mcg/actuation aerosol inhaler 2 puff inhalation Q4H PRN PRN Shortness Of Breath 01/21/23 acetaminophen 500 mg tablet 1,000 mg PO Q8H PRN PRN Pain Score 1-3 #0 tabs 01/25/23 furosemide 40 mg tablet 40 mg PO DAILY 30 days #30 tabs 01/25/23 gabapentin 600 mg tablet 300 mg PO TID 30 days #0 tabs 01/25/23 insulin aspart U-100 100 unit/mL subcutaneous solution (Novolog U-100 Insulin aspart) 15 unit (0.15 mL) subcut TID #10 mL 01/25/23 insulin glargine 100 unit/mL (3 mL) subcutaneous pen (Basaglar KwikPen U-100 Insulin) 36 unit (0.36 mL) subcut BID diabetes #15 mL 01/25/23 losartan 25 mg tablet 25 mg PO DAILY 30 days #30 tabs 01/25/23 spironolactone 25 mg tablet 25 mg PO DAILY 30 days #30 tabs 01/25/23
--- NOTE | 2023-01-28 10:06 | NURSING ---
ANIBAL JHA Discharge follow-up phone call LACE:12 Strata:3 Date of call:01/28/23 Time of Call:1000 Admitting diagnosis:Hypokalemia Summary of call: Spoke with patient's regarding recent hospitalization. Pt's expressed concerns regarding the Pt's inability to manage his blood glucose. Also, she expressed that he is taking a water pill for weight gain.Pt's instructed to notify home health nurse and social service technician regarding concerns related to help regarding the care for her . was reminded of the need to have blood work complete next week prior to patient's visit with PCP. Pt's instructed to contact PCP with any questions or concerns should they arise.
== END 2023-01-25 13:12 | disposition home health service (06) | DRG 683 ==
LOC: ED 16:21 → MS3 17:01
PROVIDERS: Admitting Provider Internal Medicine; Emergency Provider Emergency Medicine; PCP Family Medicine; Visit Provider Internal Medicine
DX: N17.9 Acute kidney failure, unspecified (principal); I13.0 Hypertensive heart and chronic kidney disease with heart failure and stage 1 through stage 4 chronic kidney disease, or unspecified chronic kidney disease; I50.22 Chronic systolic (congestive) heart failure; F01.50 Vascular dementia, unspecified severity, without behavioral disturbance, psychotic disturbance, mood disturbance, and anxiety; E11.22 Type 2 diabetes mellitus with diabetic chronic kidney disease; N18.4 Chronic kidney disease, stage 4 (severe); E11.65 Type 2 diabetes mellitus with hyperglycemia; Z79.4 Long term (current) use of insulin; E87.6 Hypokalemia; E78.5 Hyperlipidemia, unspecified; I25.10 Atherosclerotic heart disease of native coronary artery without angina pectoris; I25.5 Ischemic cardiomyopathy; I25.2 Old myocardial infarction; K59.00 Constipation, unspecified; E86.0 Dehydration; T50.1X5A Adverse effect of loop [high-ceiling] diuretics, initial encounter; Z68.36 Body mass index [BMI] 36.0-36.9, adult; Z20.822 Contact with and (suspected) exposure to COVID-19; R29.898 Other symptoms and signs involving the musculoskeletal system; R53.1 Weakness; E66.9 Obesity, unspecified; Z79.899 Other long term (current) drug therapy; Z95.5 Presence of coronary angioplasty implant and graft; Z87.891 Personal history of nicotine dependence
CPT/HCPCS: 36415; 70551; 71046; 80048; 80053; 80076; 81001; 82962; 83735; 83880; 84484; 85025; 85379; 87428; 93005; 97162; 99285; J7030; J7040; A4216

== ENCOUNTER 2023-02-06 16:09 | Emergency (ER) | payer MEDICARE, OTHER, SELFPAY ==
[2021-02-27 07:06] VITALS: BMI 40.4
[2023-02-06 16:09] VITALS: BP 111/68; PULSE 82; RESP 20; TEMP 36.7; O2SAT 99
--- NOTE | 2023-02-06 16:39 | EX.ED.DYSGE1 ---
HPI <ELLIS Rodriguez - Last Filed: 02/06/23 20:14> History of Present Illness Chief Complaint: Shortness of Breath Narrative Narrative: Patient is a 77-year-old male with history of obesity, CAD, CHF, diabetes, BPH who lives at home with his who has a nurse that comes and helps him out presents to the emergency department for increased shortness of breath while ambulating. Patient also is complaining of leg shaking. Patient states he does have history of restless leg. Patient called his nurse and told him that he was short of breath, they called his family doctor told him to the emergency department. Patient denies any chest pain. Patient denies any recent fevers chills. Patient [place] any cough. Denies any recent trips. REPLACED BY [facility] <ELLIS Rodriguez - Last Filed: 02/06/23 20:14> REPLACED BY [facility] Medical History (Updated 02/06/23 @ 18:32 by ELLIS Rodriguez) Atherosclerotic heart disease of [place] coronary artery without angina pectoris Cardiomyopathy Cataracts, both eyes Chest pain Congestive heart failure (CHF) CPAP (continuous positive airway pressure) dependence Dementia DM type 2 (diabetes mellitus, type 2) DVT (deep venous thrombosis) Essential hypertension Former smoker Hyperlipidemia Kidney disease NSTEMI (non-ST elevated myocardial infarction) Obesity Pericardial effusion Presence of stent in coronary artery (10/20/19) Shingles Sleep apnea Spinal stenosis Home Medications folic acid 400 mcg tablet 400 mcg PO DAILY supplement 10/19/19 [History Last Taken 09/08/21] tamsulosin 0.4 mg capsule 0.4 mg PO QHS BPH 07/02/20 [History Last Taken 09/10/21 21:00] pravastatin 80 mg tablet 80 mg PO DAILY cholesterol 05/15/21 [History Last Taken 09/10/21 21:00] docusate sodium 100 mg capsule (Colace) 100 mg PO BID 10/29/21 [History Last Taken Unknown] krill oil 500 mg capsule 500 mg PO DAILY 10/29/21 [History Last Taken Unknown] mirabegron 25 mg tablet,extended release 24 hr 25 mg PO DAILY 10/29/21 [History Last Taken Unknown] baclofen 10 mg tablet 10 mg PO TID PRN Muscle pain/spasm #90 tabs 11/02/21 [Rx Last Taken Unknown] cholecalciferol (vitamin D3) 50 mcg (2,000 unit) capsule 50 mcg PO DAILY 01/28/22 [History Last Taken Unknown] dulaglutide 0.75 mg/0.5 mL subcutaneous pen injector (Trulicity) 0.75 mg subcut QWEEK 05/25/22 [History Last Taken Unknown] naloxone 0.4 mg/0.4 mL injection, auto-injector 4 mg 05/25/22 [History Last Taken Unknown] carvedilol 3.125 mg tablet 3.125 mg PO BIDCM #180 tabs 08/02/22 [Rx Last Taken Unknown] nitroglycerin 0.4 mg sublingual tablet 0.4 mg sublingual Q5-15M PRN Chest Pain 01/05/23 [History Last Taken Unknown] hydrocodone-acetaminophen 5-325mg 5mg-325mg 1 tab PO Q6H PRN PRN Pain 01/12/23 [History Last Taken Unknown] albuterol sulfate 90 mcg/actuation aerosol inhaler 2 puff inhalation Q4H PRN PRN Shortness Of Breath 01/21/23 [History Last Taken Unknown] acetaminophen 500 mg tablet 1,000 mg PO Q8H PRN PRN Pain Score 1-3 #0 tabs 01/25/23 [Rx Last Taken Unknown] furosemide 40 mg tablet 40 mg PO DAILY 30 days #30 tabs 01/25/23 [Rx Last Taken Unknown] gabapentin 600 mg tablet 300 mg PO TID 30 days #0 tabs 01/25/23 [Rx Last Taken Unknown] insulin aspart U-100 100 unit/mL subcutaneous solution (Novolog U-100 Insulin aspart) 15 unit (0.15 mL) subcut TID #10 mL 01/25/23 [Rx Last Taken Unknown] insulin glargine 100 unit/mL (3 mL) subcutaneous pen (Basaglar KwikPen U-100 Insulin) 36 unit (0.36 mL) subcut BID diabetes #15 mL 01/25/23 [Rx Last Taken Unknown] losartan 25 mg tablet 25 mg PO DAILY 30 days #30 tabs 01/25/23 [Rx Last Taken Unknown] spironolactone 25 mg tablet 25 mg PO DAILY 30 days #30 tabs 01/25/23 [Rx Last Taken Unknown] Allergy/AdvReac Type Severity Reaction Status Date / Time lisinopril AdvReac cough Verified 02/06/23 16:11 Surgical History H/O knee surgery History of back surgery History of left heart catheterization (10/20/19) Presence of coronary angioplasty implant and graft (~10/20/19) Social History household members: spouse Smoking Status: Former smoker how long ago did patient quit smokin+ years used cigars ocationally alcohol intake: current alcohol intake frequency: a few times a month Alcohol type: beer substance use type: does not use caffeine: No ROS <ELLIS Rodriguez - Last Filed: 02/06/23 20:14> ROS ED ROS Narrative Constitutional: Negative for fever, chills, weight loss, weakness Eyes: Negative for vision loss, vision change, double vision ENT: Negative for any sore throat, ear pain, congestion Cardiovascular: Negative for any chest pain, tightness, palpitations Respiratory: Negative for any cough, sputum production, hemoptysis/. Positive for dyspnea, dyspnea on exertion, orthopnea Gastrointestinal: Negative for any abdominal pain, nausea, vomiting, diarrhea, constipation, blood in stool, blood in vomit : Negative for any urinary frequency, dysuria, retention, blood in urine Muscle skeletal: Negative for any muscle joint pain, stiffness, myalgias, arthralgias, neck pain, back pain Neurological: Negative for any headache, syncope, numbness or tingling, dizziness. Positive for bilateral leg pain and shaking Skin: Negative for any rashes, lumps, itching, abrasions, lacerations Psychiatric: Negative for any depression, anxiety, stress, suicidal ideation, homicidal ideation Hematologic: Negative for any easy bruising, excessive bruising, easy bleeding Allergies: Negative for any eczema, hives, rash EXAM <ELLIS Rodriguez - Last Filed: 02/06/23 20:14> Physical Exam Narrative Exam Narrative: Vital signs reviewed. Patient is poor historian about his past medical history. He is a poor informant about what occurred today. Vital signs are stable. HEET: Head normocephalic atraumatic, TMs clear bilaterally. Posterior pharynx is clear, moist mucous membranes. Nares clear bilaterally. Neck: Supple with no lymphadenopathy or tenderness. No signs of meningismus, negative jolt sign. Cardiac: Regular rate and rhythm no murmurs gallops or rubs, equal peripheral pulses bilaterally. Respiratory: Lungs clear to auscultation bilaterally. Diminished lung sounds in the bases. No chest tenderness. Abdomen: Soft, nontender, nondistended. No abdominal bruit or pulsatile masses. No hepatosplenomegaly Extremities: +1-2 pitting edema to bilateral feet ankles and mid lower extremities. No signs of gross trauma or deformity. Active full range of motion of all extremities. Neuro: Cranial nerves II through XII intact, no focal neurological deficits. Skin: Clean dry and intact with no rash, purpura, petechiae, vesicles or pustules. Backs/flank: No CVA tenderness, no midline spinal tenderness, no deformity. Psych: Normal mood and affect. No SI, HI or acute psychosis. Const Vital Signs: 02/06/23 16:09 02/06/23 16:37 02/06/23 18:09 Temperature 98.1 F Temperature Source Temporal Pulse Rate 82 Respiratory Rate 20 H Respiratory Effort Short of Breath Respiratory Depth Normal Respiratory Pattern Normal Blood Pressure 111/68 131/80 H Blood Pressure Mean 82 97 Pulse Ox 99 Oxygen Delivery Method Room Air Room Air 02/06/23 20:00 Temperature Temperature Source Pulse Rate Respiratory Rate Respiratory Effort Respiratory Depth Respiratory Pattern Blood Pressure 138/76 H Blood Pressure Mean 96 Pulse Ox Oxygen Delivery Method <Dr. Vane Conner MD - Last Filed: 02/06/23 21:00> Physical Exam Const Vital Signs: 02/06/23 16:09 02/06/23 16:37 02/06/23 18:09 Temperature 98.1 F Temperature Source Temporal Pulse Rate 82 Respiratory Rate 20 H Respiratory Effort Short of Breath Respiratory Depth Normal Respiratory Pattern Normal Blood Pressure 111/68 131/80 H Blood Pressure Mean 82 97 Pulse Ox 99 Oxygen Delivery Method Room Air Room Air 02/06/23 20:00 Temperature Temperature Source Pulse Rate Respiratory Rate Respiratory Effort Respiratory Depth Respiratory Pattern Blood Pressure 138/76 H Blood Pressure Mean 96 Pulse Ox Oxygen Delivery Method MDM <ELLIS Rodriguez - Last Filed: 02/06/23 20:14> [facility] Lab Data Labs: Laboratory Results - last 24 hr 02/06/23 02/06/23 02/06/23 16:49 16:49 16:49 WBC 7.2 RBC 4.01 L Hgb 13.0 Hct 40.1 MCV 100.0 H MCH 32.4 H MCHC 32.4 RDW Std Deviation 54.9 H RDW Coeff of Susan 14.9 H Plt Count 235 MPV 9.9 Immature Gran % (Auto) 1.500 H Neut % (Auto) 77.5 H Lymph % (Auto) 9.9 L [place] % (Auto) 8.9 Eos % (Auto) 1.8 Baso % (Auto) 0.4 Absolute Neuts (auto) 5.6 Absolute Lymphs (auto) 0.71 L Nucleated RBC % 0 Sodium 141 Potassium 4.7 Chloride 107 Carbon Dioxide 26.0 Anion Gap 8 BUN 26 H Creatinine 1.44 H Est GFR (MDRD) Af Amer 61 Est GFR (MDRD) Non-Af 50 L BUN/Creatinine Ratio 18.1 Glucose 275 H Calcium 8.4 L Troponin I High Sens 22 B-Natriuretic Peptide 166.3 H 02/06/23 19:27 WBC RBC Hgb Hct MCV MCH MCHC RDW Std Deviation RDW Coeff of Susan Plt Count MPV Immature Gran % (Auto) Neut % (Auto) Lymph % (Auto) [place] % (Auto) Eos % (Auto) Baso % (Auto) Absolute Neuts (auto) Absolute Lymphs (auto) Nucleated RBC % Sodium Potassium Chloride Carbon Dioxide Anion Gap BUN Creatinine Est GFR (MDRD) Af Amer Est GFR (MDRD) Non-Af BUN/Creatinine Ratio Glucose Calcium Troponin I High Sens 25 B-Natriuretic Peptide Radiography Diagnostic Testing: Clinical Impression(s) from Imaging Studies Chest X-Ray 02/06/23 16:55 IMPRESSION: Cardiomegaly. Electronically Signed: Rory Atwood DO at 17:39 EDT Reading Location ID and State: [facility] / [place] Tel [phone], Service support , EKG Sinus rhythm with PVC, rate of 70 bpm: Attestation: I personally reviewed and interpreted this EKG as follows: Comments: Rate of 70 bpm QRS 92 ms, no acute ST elevation, no acute infarct noted Treatment and Re-Evaluation :: All radiologic examinations were read, reviewed by the emergency department attending. From these reads, a plan of care will be put in place. Patient appears generally well, patient appears nontoxic, vital signs are stable. Patient presents the [facility] apartment for feeling of shortness of breath, left leg shaking. Patient does have restless leg. Patient did receive a full respiratory work-up. Patient received x-rays of the chest to rule out any pneumonia, pneumothorax. Chest x-ray is read by ER physician shows cardiomegaly however no acute process. Patient's laboratory values showed normal CBC, patient's chemistries showed slight renal insufficiency at 1.4 however this is an improvement, patient earlier in the month was 2.7. Patient's glucose was 275, this is baseline, patient's troponin was negative. BNP was slightly elevated 166.3. Patient is showing no signs of fluid overload. Patient was ambulated and did not drop below 94%. At this time, is no evidence to suspect any ACS, ID. I spoke with the patient at length, the patient received a repeat troponin. If it is negative, patient will be stable for discharge. Patient's second troponin was 25 which is negative. I spoke with the patient again, the patient looks well. The patient will be picked up by his . He was given return precautions, all questions answered. Patient stable for discharge <Dr. Vane Conner MD - Last Filed: 02/06/23 21:00> [facility] Lab Data Labs: Laboratory Results - last 24 hr 02/06/23 02/06/23 02/06/23 16:49 16:49 16:49 WBC 7.2 RBC 4.01 L Hgb 13.0 Hct 40.1 MCV 100.0 H MCH 32.4 H MCHC 32.4 RDW Std Deviation 54.9 H RDW Coeff of Susan 14.9 H Plt Count 235 MPV 9.9 Immature Gran % (Auto) 1.500 H Neut % (Auto) 77.5 H Lymph % (Auto) 9.9 L [place] % (Auto) 8.9 Eos % (Auto) 1.8 Baso % (Auto) 0.4 Absolute Neuts (auto) 5.6 Absolute Lymphs (auto) 0.71 L Nucleated RBC % 0 Sodium 141 Potassium 4.7 Chloride 107 Carbon Dioxide 26.0 Anion Gap 8 BUN 26 H Creatinine 1.44 H Est GFR (MDRD) Af Amer 61 Est GFR (MDRD) Non-Af 50 L BUN/Creatinine Ratio 18.1 Glucose 275 H Calcium 8.4 L Troponin I High Sens 22 B-Natriuretic Peptide 166.3 H 02/06/23 19:27 WBC RBC Hgb Hct MCV MCH MCHC RDW Std Deviation RDW Coeff of Susan Plt Count MPV Immature Gran % (Auto) Neut % (Auto) Lymph % (Auto) [place] % (Auto) Eos % (Auto) Baso % (Auto) Absolute Neuts (auto) Absolute Lymphs (auto) Nucleated RBC % Sodium Potassium Chloride Carbon Dioxide Anion Gap BUN Creatinine Est GFR (MDRD) Af Amer Est GFR (MDRD) Non-Af BUN/Creatinine Ratio Glucose Calcium Troponin I High Sens 25 B-Natriuretic Peptide Radiography Diagnostic Testing: Clinical Impression(s) from Imaging Studies Chest X-Ray 02/06/23 16:55 IMPRESSION: Cardiomegaly. Electronically Signed: Rory Atwood DO at 17:39 EDT Reading Location ID and State: [address] [place] [address] Tel [phone], Service support , Treatment and Re-Evaluation :: All radiologic examinations were read, reviewed by the emergency department attending. From these reads, a plan of care will be put in place. Patient appears generally well, patient appears nontoxic, vital signs are stable. Patient presents the [facility] apartment for feeling of shortness of breath, left leg shaking. Patient does have restless leg. Patient did receive a full respiratory work-up. Patient received x-rays of the chest to rule out any pneumonia, pneumothorax. Chest x-ray is read by ER physician shows cardiomegaly however no acute process. Patient's laboratory values showed normal CBC, patient's chemistries showed slight renal insufficiency at 1.4 however this is an improvement, patient earlier in the month was 2.7. Patient's glucose was 275, this is baseline, patient's troponin was negative. BNP was slightly elevated 166.3. Patient is showing no signs of fluid overload. Patient was ambulated and did not drop below 94%. At this time, is no evidence to suspect any ACS, ID. I spoke with the patient at length, the patient received a repeat troponin. If it is negative, patient will be stable for discharge. Patient's second troponin was 25 which is negative. I spoke with the patient again, the patient looks well. The patient will be picked up by his . He was given return precautions, all questions answered. Patient stable for discharge Patient seen and evaluated with [facility]A. I personally interviewed and examined the patient. I was involved in all aspects of patient's orders, interpretation of results, and treatment. Patient presents secondary to shortness of breath. Patient reportedly became short of breath earlier today when he went to his car. He does have a history of dementia and is a poor historian. He denies chest pain. He has not had significant cough. He does state that normally he wraps his legs to help with swelling and he has not done much today. Patient sitting upright in bed no acute distress. Head and neck examination is unremarkable. Heart is regular rate and rhythm. Lung sounds are grossly clear with slightly diminished breath sounds at the bases. Abdomen is soft and nontender. Lower extremity examination reveals mild pitting edema to the lower extremities, left greater than right. EKG reveals no evidence of acute ischemia. Portable chest x-ray per my interpretation reveals no focal infiltrate. Chronic changes with cardiomegaly noted. Radiology interpretation is reviewed. CBC reveals normal white count at 7.2 and 77% neutrophils. Chemistry studies reveal a BUN of 26 and creatinine of 1.44. Glucose is 275. Troponin is 22 with a 2-hour repeat at 25. BNP is 166. We were able to get the patient up and ambulate him. He did not become hypoxic and nursing staff states he did quite well. He is reassured with our findings here and will continue his current medication regimen. Return instructions given. Discharge Plan Triage Chief Complaint: Shortness of Breath ED Midlevel Provider: Ever Arboleda ED Provider: Vane Conner Dx/Rx/DC Orders Clinical Impression: SOB (shortness of breath), Restless leg syndrome, controlled, Leg edema Instructions: RLS What to Do, ED Dyspnea, ED Peripheral Edema, Bilateral Prescriptions: No Action tamsulosin 0.4 mg capsule 0.4 mg PO QHS cholecalciferol (vitamin D3) 50 mcg (2,000 unit) capsule 50 mcg PO DAILY docusate sodium [Colace] 100 mg capsule 100 mg PO BID krill oil 500 mg capsule 500 mg PO DAILY mirabegron 25 mg tablet extended release 24 hr 25 mg PO DAILY hydrocodone-acetaminophen 5-325 mg tablet 1 tab PO Q6H PRN PRN (Reason: Pain) carvedilol 3.125 mg tablet 3.125 mg PO BIDCM Qty: 180 3RF folic acid 0.4 MG tablet 400 mcg PO DAILY pravastatin 80 mg tablet 80 mg PO DAILY naloxone 0.4 mg/0.4 mL Auto-Injector 4 mg Trulicity 0.75 mg/0.5 mL Pen Injector 0.75 mg SUBCUT QWEEK albuterol sulfate 90 mcg/actuation HFA aerosol inhaler 2 puff INHALATION Q4H PRN PRN (Reason: Shortness Of Breath) furosemide 40 mg Tablet 40 mg PO DAILY 30 Days Qty: 30 2RF Rx Instructions: Take an additional 40 mg dose at 5 PM for increased leg swelling or weight gain 5 pounds in 1 week. spironolactone 25 mg Tablet 25 mg PO DAILY 30 Days Qty: 30 1RF Rx Instructions: Hold if potassium more than 5.0 losartan 25 mg Tablet 25 mg PO DAILY 30 Days Qty: 30 2RF gabapentin 600 mg tablet 300 mg PO TID 30 Days Qty: 0 0RF acetaminophen 500 mg Tablet 1,000 mg PO Q8H PRN PRN (Reason: Pain Score 1-3) Qty: 0 0RF insulin aspart U-100 [Novolog U-100 Insulin aspart] 100 unit/mL solution 15 unit subcut TID Qty: 10 2RF insulin glargine [Basaglar KwikPen U-100 Insulin] 100 unit/mL (3 mL) insulin pen 36 unit subcut BID Qty: 15 4RF baclofen 10 mg tablet 10 mg PO TID PRN (Reason: Muscle pain/spasm) Qty: 90 3RF nitroglycerin 0.4 mg tablet, sublingual 0.4 mg sublingual Q5-15M PRN (Reason: Chest Pain) Rx Instructions: do not exceed 3 doses per episode Primary Care Provider: Paulo Nguyen Referrals: Paulo Nguyen MD [Primary Care Provider] - Activity Restrictions/Additional Instructions: Please take your medications as prescribed. Please follow-up with your PCP. Disposition Disposition: Home, Self Care Discharge Date/Time: 02/06/23 20:19
--- NOTE | 2023-02-06 16:55 | RAD_ITS ---
EXAMINATION/TECHNIQUE: X-RAY - XR Chest 2 Views COMPARISON: January 21, 2023. FINDINGS: LINES/DEVICES: None. LUNGS: No consolidation, edema or effusion. No pneumothorax. MEDIASTINUM AND CARDIOVASCULAR STRUCTURES: Cardiac silhouette is enlarged. Central airways and mediastinal contour are unremarkable. BONES AND SOFT TISSUES: Unremarkable. INDICATION: shortness of breath EXAMINATION/TECHNIQUE: X-RAY - XR Chest 2 Views COMPARISON: January 21, 2023. FINDINGS: LINES/DEVICES: None. LUNGS: No consolidation, edema or effusion. No pneumothorax. MEDIASTINUM AND CARDIOVASCULAR STRUCTURES: Cardiac silhouette is enlarged. Central airways and mediastinal contour are unremarkable. BONES AND SOFT TISSUES: Unremarkable. IMPRESSION: Cardiomegaly. RAD/Chest PA and Lateral IMPRESSION: Cardiomegaly. Electronically Signed: Rory Atwood DO at 17:39 EDT ,
[2023-02-06 16:59] LABS: Absolute Lymphocyte Count 0.71 X10^3/uL (0.83-4.51); Absolute Neutrophil Count 5.6 X10^3/uL (2.0-7.7); Basophil# 0.03 X10^3/uL; Basophil% 0.4 % (0-1); Eosinophil# 0.13 X10^3/uL; Eosinophils% 1.8 % (0-5); Hematocrit 40.1 % (40-54); Lymphocyte # 0.71 X10^3/ul (0.83-4.51); Lymphocyte % 9.9 % (19-41); Mean Corp Hgb Conc 32.4 g/dL (32-36); Mean Corpuscular Hgb 32.4 pg (27.0-32.0); Mean Platelet Vol. 9.9 fl (6.2-12.0); Monocyte# 0.64 X10^3/uL; Monocyte% 8.9 % (0-10); NRBC Flagged by Analyzer 0 % (0-5); Neutrophil # 5.58 X10^3/uL (2.7-7.7); Neutrophil % 77.5 % (47-70); Platelet Count 235 K/mm3 (150-450); RBC Distribution Width CV 14.9 % (11.6-14.6); RBC Distribution Width SD 54.9 fl (35.1-43.9); Red Blood Count 4.01 M/mm3 (4.6-6.2); White Blood Count 7.2 K/mm3 (4.4-11.0)
[2023-02-06 17:18] LABS: Anion Gap 8 (5-15); BUN 26 mg/dL (7-18); BUN/Creat Ratio 18.1 RATIO (10-20); Calcium,Total 8.4 mg/dL (8.5-10.1); Chloride 107 mmol/L (98-107); Creatinine, Serum 1.44 mg/dL (0.70-1.30); EST Glomerular Filtration Rate 50 mL/min (>60); Est Glom Filt Rate - Afr Amer 61 mL/min (>60); Glucose 275 mg/dL (74-106); Potassium 4.7 mmol/L (3.5-5.1); Sodium Level 141 mmol/L (136-145); Troponin-I HS (w/2H Reflex) 22 pg/mL (3.0-78.0)
[2023-02-06 17:30] LABS: BNP,B-Type NATRIURETIC PEPTIDE 166.3 pg/mL (0-100)
[2023-02-06 18:09] VITALS: BP 131/80
[2023-02-06 18:27] VITALS: O2SAT 99
[2023-02-06 18:57] LABS: Reflex Troponin-HS? (from REC) Y
[2023-02-06] MEDS: Gabapentin 300 MG Capsule PO (19:36)
[2023-02-06 19:51] LABS: Troponin-I HS 25 pg/mL (3.0-78.0)
[2023-02-06 20:00] VITALS: BP 138/76
== END 2023-02-06 20:19 | disposition home or self-care (01) ==
LOC: ED 17:13
PROVIDERS: Nurse Practitioner; Emergency Provider Emergency Medicine; PCP Family Medicine; Referring Provider Emergency Medicine; Visit Provider Emergency Medicine
DX: R06.02 Shortness of breath (principal); I11.0 Hypertensive heart disease with heart failure; I50.9 Heart failure, unspecified; E11.9 Type 2 diabetes mellitus without complications; E78.5 Hyperlipidemia, unspecified; E66.9 Obesity, unspecified; G25.81 Restless legs syndrome; I25.10 Atherosclerotic heart disease of native coronary artery without angina pectoris; Z87.891 Personal history of nicotine dependence; R60.0 Localized edema
CPT/HCPCS: 71046; 80048; 83880; 84484; 85025; 93005; 99284; A4216

== ENCOUNTER → 2023-02-17 | Outpatient (CLI) | payer MEDICARE, OTHER, SELFPAY ==
[2021-02-27 07:06] VITALS: BMI 40.4
[2023-02-17 13:07] LABS: Anion Gap 10 (5-15); BUN 43 mg/dL (7-18); BUN/Creat Ratio 21.5 RATIO (10-20); Calcium,Total 9.6 mg/dL (8.5-10.1); Chloride 91 mmol/L (98-107); EST Glomerular Filtration Rate 34 mL/min (>60); Est Glom Filt Rate - Afr Amer 42 mL/min (>60); Glucose 131 mg/dL (74-106); Sodium Level 137 mmol/L (136-145)
== END | disposition home or self-care (01) ==
LOC: LAB 11:42
PROVIDERS: PCP Family Medicine; Visit Provider Nurse Practitioner Gerontology
DX: R06.02 Shortness of breath (principal); I50.32 Chronic diastolic (congestive) heart failure; E11.9 Type 2 diabetes mellitus without complications; R60.0 Localized edema
CPT/HCPCS: 36415; 80048

== ENCOUNTER → 2023-02-22 | Outpatient (CLI) | payer MEDICARE, OTHER, SELFPAY ==
[2021-02-27 07:06] VITALS: BMI 40.4
[2023-02-22 12:11] LABS: Anion Gap 11 (5-15); BUN 56 mg/dL (7-18); BUN/Creat Ratio 25.8 RATIO (10-20); Calcium,Total 9.2 mg/dL (8.5-10.1); Chloride 91 mmol/L (98-107); Creatinine, Serum 2.17 mg/dL (0.70-1.30); EST Glomerular Filtration Rate 31 mL/min (>60); Est Glom Filt Rate - Afr Amer 38 mL/min (>60); Glucose 160 mg/dL (74-106); Potassium 3.2 mmol/L (3.5-5.1); Sodium Level 135 mmol/L (136-145)
== END | disposition home or self-care (01) ==
LOC: LAB 11:02
PROVIDERS: PCP Family Medicine; Referring Provider Nurse Practitioner Gerontology; Visit Provider Nurse Practitioner Gerontology
DX: E87.6 Hypokalemia (principal)
CPT/HCPCS: 36415; 80048

== ENCOUNTER → 2023-02-24 | Outpatient (CLI) | payer MEDICARE, OTHER, SELFPAY ==
[2021-02-27 07:06] VITALS: BMI 40.4
[2023-02-24 12:04] LABS: Absolute Lymphocyte Count 1.42 X10^3/uL (0.83-4.51); Absolute Neutrophil Count 5.5 X10^3/uL (2.0-7.7); Basophil# 0.05 X10^3/uL; Basophil% 0.6 % (0-1); Eosinophil# 0.19 X10^3/uL; Eosinophils% 2.3 % (0-5); Hematocrit 45.2 % (40-54); Hemoglobin 14.4 g/dL (13.0-16.5); Lymphocyte # 1.42 X10^3/ul (0.83-4.51); Lymphocyte % 17.5 % (19-41); Mean Corp Hgb Conc 31.9 g/dL (32-36); Mean Corpuscular Hgb 31.9 pg (27.0-32.0); Mean Platelet Vol. 9.8 fl (6.2-12.0); Monocyte# 0.79 X10^3/uL; Monocyte% 9.7 % (0-10); NRBC Flagged by Analyzer 0 % (0-5); Neutrophil # 5.53 X10^3/uL (2.7-7.7); Neutrophil % 68.3 % (47-70); Platelet Count 231 K/mm3 (150-450); RBC Distribution Width CV 14.7 % (11.6-14.6); RBC Distribution Width SD 54.5 fl (35.1-43.9); Red Blood Count 4.52 M/mm3 (4.6-6.2); White Blood Count 8.1 K/mm3 (4.4-11.0)
[2023-02-24 12:41] LABS: Anion Gap 8 (5-15); BUN 49 mg/dL (7-18); Calcium,Total 9.1 mg/dL (8.5-10.1); Chloride 97 mmol/L (98-107); Creatinine, Serum 1.96 mg/dL (0.70-1.30); EST Glomerular Filtration Rate 35 mL/min (>60); Est Glom Filt Rate - Afr Amer 43 mL/min (>60); Glucose 220 mg/dL (74-106); Potassium 3.3 mmol/L (3.5-5.1); Sodium Level 140 mmol/L (136-145)
[2023-02-24 12:46] LABS: BNP,B-Type NATRIURETIC PEPTIDE 130.9 pg/mL (0-100)
== END | disposition home or self-care (01) ==
LOC: LAB 11:23
PROVIDERS: PCP Family Medicine; Referring Provider Nurse Practitioner Gerontology; Visit Provider Nurse Practitioner Gerontology
DX: R06.09 Other forms of dyspnea (principal); R53.83 Other fatigue
CPT/HCPCS: 36415; 80048; 83880; 85025

== ENCOUNTER → 2023-03-03 | Outpatient (CLI) | payer MEDICARE, OTHER, SELFPAY ==
[2021-02-27 07:06] VITALS: BMI 40.4
[2023-03-03 10:11] LABS: Anion Gap 3 (5-15); BUN 28 mg/dL (7-18); Chloride 103 mmol/L (98-107); Creatinine, Serum 1.65 mg/dL (0.70-1.30); EST Glomerular Filtration Rate 43 mL/min (>60); Est Glom Filt Rate - Afr Amer 52 mL/min (>60); Glucose 186 mg/dL (74-106); Potassium 4.7 mmol/L (3.5-5.1); Sodium Level 138 mmol/L (136-145)
--- NOTE | 2023-03-03 15:10 | STRESSREP ---
Stress Test Report Pharmacologic myocardial perfusion stress test. 78-year-old man with a history of shortness of breath coronary artery disease Resting EKG demonstrates sinus bradycardia with a rate of 59 bpm. Resting blood pressure is 104/64 mmHg. 0.4 mg of regadenoson was infused per usual protocol followed by rapid intravenous saline flush injection. Continuous EKG monitoring was performed. The maximum heart rate was 76 bpm which was 54% of max impacted heart rate the maximum workload was 1 metabolic equivalent. At rest there were no ST or T wave changes noted to suggest ischemia and at peak infusion nonspecific ST changes were noted which did not meet the criteria for ischemia. No clinical angina is noted. The final blood pressure was 100/60 mmHg. Myocardial perfusion protocol. 14.7 mCi of technetium 99m sestamibi was injected at rest. 0.4 mg of regadenoson was infused per usual protocol. At peak infusion 44.8 mCi of technetium 99m sestamibi was injected stress images were obtained stress and rest images were reconstructed and compared in the short axis vertical long and horizontal long axis. Gated images were also obtained. Perfusion SPECT analysis: Review of the stress images demonstrate a large perfusion defect noted in the inferolateral region. The anterior septal wall inferior apical and anterior maxwell appear to be well perfused. The resting images demonstrate a similar pattern. The above is suggestive of a previous extensive inferolateral infarct. No ischemia is noted. Gated SPECT analysis: The gated ejection fraction is 42% Ischemic cardiomyopathy. Conclusion: Myocardial perfusion stress test with extensive inferolateral perfusion defect. No ischemia noted. Cardiomyopathy present
== END | disposition home or self-care (01) ==
PROVIDERS: PCP Family Medicine; Referring Provider Nurse Practitioner Gerontology; Visit Provider Nurse Practitioner Gerontology
DX: N17.9 Acute kidney failure, unspecified (principal); R06.09 Other forms of dyspnea; R53.83 Other fatigue; I25.10 Atherosclerotic heart disease of native coronary artery without angina pectoris; Z95.5 Presence of coronary angioplasty implant and graft
CPT/HCPCS: 36415; 78452; 80048; 93017; A9500; A4216; J2785

== ENCOUNTER → 2023-03-10 | Outpatient (CLI) | payer MEDICARE, OTHER, SELFPAY ==
[2021-02-27 07:06] VITALS: BMI 40.4
[2023-03-10 12:40] LABS: Anion Gap 7 (5-15); BUN 34 mg/dL (7-18); BUN/Creat Ratio 22.4 RATIO (10-20); Calcium,Total 9.2 mg/dL (8.5-10.1); Chloride 103 mmol/L (98-107); Creatinine, Serum 1.52 mg/dL (0.70-1.30); EST Glomerular Filtration Rate 47 mL/min (>60); Est Glom Filt Rate - Afr Amer 57 mL/min (>60); Glucose 246 mg/dL (74-106); Potassium 4.2 mmol/L (3.5-5.1); Sodium Level 138 mmol/L (136-145)
== END | disposition home or self-care (01) ==
LOC: LAB 10:42
PROVIDERS: PCP Family Medicine; Referring Provider Nurse Practitioner Gerontology; Visit Provider Nurse Practitioner Gerontology
DX: R06.09 Other forms of dyspnea (principal)
CPT/HCPCS: 36415; 80048

== ENCOUNTER → 2023-03-17 | Outpatient (CLI) | payer MEDICARE, OTHER, SELFPAY ==
[2021-02-27 07:06] VITALS: BMI 40.4
[2023-03-17 12:14] LABS: Anion Gap 9 (5-15); BUN 44 mg/dL (7-18); BUN/Creat Ratio 23.4 RATIO (10-20); Calcium,Total 9.3 mg/dL (8.5-10.1); Chloride 97 mmol/L (98-107); Creatinine, Serum 1.88 mg/dL (0.70-1.30); EST Glomerular Filtration Rate 37 mL/min (>60); Est Glom Filt Rate - Afr Amer 45 mL/min (>60); Glucose 139 mg/dL (74-106); Potassium 3.3 mmol/L (3.5-5.1); Sodium Level 136 mmol/L (136-145)
== END | disposition home or self-care (01) ==
PROVIDERS: PCP Family Medicine; Referring Provider Internal Medicine Cardiovascular Disease; Visit Provider Nurse Practitioner Gerontology
DX: R06.09 Other forms of dyspnea (principal); I50.32 Chronic diastolic (congestive) heart failure; E11.9 Type 2 diabetes mellitus without complications; R53.83 Other fatigue; E87.6 Hypokalemia
CPT/HCPCS: 36415; 80048

== ENCOUNTER 2023-03-29 11:15 | Outpatient (RCR) | payer MEDICARE, OTHER, SELFPAY ==
[2021-02-27 07:06] VITALS: BMI 40.4
[2023-03-29 12:13] LABS: BNP,B-Type NATRIURETIC PEPTIDE 203.9 pg/mL (0-100)
[2023-03-29 12:15] LABS: Anion Gap 6 (5-15); BUN 20 mg/dL (7-18); BUN/Creat Ratio 12.3 RATIO (10-20); Calcium,Total 9.2 mg/dL (8.5-10.1); Chloride 103 mmol/L (98-107); Creatinine, Serum 1.63 mg/dL (0.70-1.30); EST Glomerular Filtration Rate 44 mL/min (>60); Est Glom Filt Rate - Afr Amer 53 mL/min (>60); Glucose 194 mg/dL (74-106); Potassium 4.2 mmol/L (3.5-5.1); Sodium Level 136 mmol/L (136-145)
== END 2023-03-29 18:00 | disposition home or self-care (01) ==
LOC: HHLAB 11:15
PROVIDERS: PCP Family Medicine; Referring Provider Nurse Practitioner Gerontology; Visit Provider Nurse Practitioner Gerontology
DX: I13.0 Hypertensive heart and chronic kidney disease with heart failure and stage 1 through stage 4 chronic kidney disease, or unspecified chronic kidney disease (principal); I50.22 Chronic systolic (congestive) heart failure; E11.22 Type 2 diabetes mellitus with diabetic chronic kidney disease; N18.9 Chronic kidney disease, unspecified
CPT/HCPCS: 80048; 83880

== ENCOUNTER 2023-05-24 11:00 | Outpatient (RCR) | payer MEDICARE, OTHER, SELFPAY ==
[2021-02-27 07:06] VITALS: BMI 40.4
--- NOTE | 2023-04-07 13:04 | HP.PTEVAL ---
Patient's Visit Information Visit Information Visit Information: LUCIA NEGRO is a 78 year old M referred to Physical Therapy by Dr. Paulo Nguyen MD with a diagnosis of Right foot droop, M21.371. Date of Evaluation: 04/07/23 Physical Therapist: Alexis Laird Visit Plan Frequency: 2x /Week Duration: 6 Weeks Plan: Continue with improving bilateral LE strength and balance. Also work on improving bilateral ankle DF ROM. Subjective Subjective: Pt. is an 78 y.o. male who has right foot drop which he is not sure for how long. Pt. has been ambulating with a rolling walker for a couple of years. He denies any falls in the last six months. He denies any numbness or tingling in his feet. Pt. has difficulty with standing/walking longer than 15 minutes, getting up from a chair, squatting, ascending/descending stairs, walking on uneven ground, getting into/out of a car, and housework. 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 His goal with physical therapy is to get stronger. He has never had physical therapy in the past. Pt. gets occasional pain in his face from previous shingles. Pt. is currently on Gabapentin. His PMH includes HBP controlled with medication, type II diabetic, lumbar spine surgery, and left knee surgery. Pt. lives with his in an apartment with no steps to enter. His hobbies include watching tv. Objective Objective: Posture- Good posture in standing Hip PROM- WNL bilaterally Left ankle AROM DF 7 degrees, PF 38 degrees Right ankle AROM DF 6 degrees, PF 35 degrees Left hip flexion 4/5, abduction 4/5, adduction 4+/5, extension 4/5, knee flexion 5/5, knee extension 4+/5, ankle DF 3-/5, PF 4/5 Right hip flexion 4/5, abduction 4/5, adduction 4+/5, extension 4/5, knee flexion 5/5, knee extension 4+/5, ankle DF 3-/5, PF 4/5 Sensation- Decreased sensation to light touch of bilateral feet 30 sec sit to stand- x 10 with unilateral arm assist Tandem stance right- 2 secs, left- unable SLS right- unable, left- unable Gait- Pt. ambulates with rolling walker and decreased heel contact bilaterally with mild forward flexed posture. Balance/Special Test Scores Lower Extremity Functional Score: 21 Goals Goal 1:: Pt. will be able to complete at least 5 sit to stands in 30 secs with no arm assist in order to improve mobility. Goal Time Frame: 4-6 Weeks Goal 2:: Pt. will be able to stand/walk for at least 15 minutes with no rest break and least restrictive device in order to improve mobility and endurance Goal Time Frame: 4-6 Weeks Goal 3:: Pt. will be able to ascend/descend at least 1 step with rolling walker and mod I in order to complete community entry. Goal Time Frame: 4-6 Weeks Goal 4:: Pt. will be able to complete tandem stance at least 10 secs in order to improve stability and balance. Goal Time Frame: 4-6 Weeks Goal 5:: Pt. will report no falls. Goal Time Frame: 4-6 Weeks Goal 6:: Pt. will improve LEFS score <60% disability in order to improve mobility and endurance. Goal Time Frame: 4-6 Weeks Rehabilitation Potential Physical Therapy Diagnosis: Decreased bilateral LE strength and balance. Pt. presents at this time with generalized weakness. Rehabilitation Potential: Good Anticipated Interventions Patient/Client Instruction: Educate patient on: Condition, Plan of Care and Benefits of Fitness Program For the Purpose of:: To improve ability to perform ADL's, To improve performance and independence with ADL's, To assume or resume ADL's, To improve health and function and To improve tolerance to ADL's Therapeutic Exercise to Include: Strength training, Endurance training, Balance training, Gait and locomotor training and Active ROM Comment: Focus on improving bilateral LE strength and balance. Also work on improving ankle DF ROM. For the Purpose of:: To improve ability to perform ADL's, To improve performance and independence with ADL's, To improve safety with gait, To assume or resume ADL's and To improve tolerance to ADL's Functional Training to Include: ADL Training and Gait training For the Purpose of:: To improve ability to perform ADL's, To improve performance and independence with ADL's, To improve balance, To improve safety with gait, To improve safety and To improve tolerance to ADL's Assistive Devices: Cane and Wheeled walker Orthotics: Brace Supportive Equipment: Compression garments For the Purpose of:: To decrease swelling/inflammation, To increase ROM, To improve ability to perform ADL's, To improve performance and independence with ADL's, To increase flexibility/ROM, To improve safety with gait, To assume or resume ADL's, To improve safety and To improve tolerance to ADL's Text: Thank you for the opportunity to evaluate your patient. For Medicare and Medicare HMO plans, please review the plan of care and approve it. It will need to be FAXED BACK to us at [phone] for Medicare purposes. For Medicare only, by signing this I certify the plan of care. Please let me know if there are questions or concerns regarding this plan of care. Physician Signature: Date:
--- NOTE | 2023-04-25 09:27 | HP.SP.EVAL ---
History History Date of Eval: 04/22/23 Attending Doctor: Referring Doctor: Reason for Referral: SP>COGNITION/FOOT DROP. RX HERE Previous speech therapy: No Other Relevant Medical History/Diagnoses/Surgery: LUCIA NEGRO is an 78 year old man who presents to [facility] d/t reported concerns from neurologist and (Loretta) re: his cognition. Loretta attended evaluation and was present in the room. Ed is currently in charge of the finances and managing his own medications. 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 Ed feels it is only because he is old which upsets him. He is a current PT patient at this facility for the right foot drop with [facility] reporting PT stating he is very weak. Ed's power tools were recently removed from the apartment d/t lack of use and also family feeling like Ed's fatigue weakness and intermittent problem solving skill difficulties would put his safety at risk - again, Ed feeling like it is because he is old. Loretta reports Ed having a long history of ordering hundreds of items off of the internet that the family does not need and that Ed does not use. Also reporting unique medication management (SEE BELOW). Loretta reporting they were recently prescribed Narcan if Ed were to overdose on his medications. Medications related to this diagnosis: Baclofen, Carvedilol, Cholecalciferol, Docusate Sodium, Folic Acid, Furosemide, Gabapentin, Hydrocodone, Insulin Glargine, Insulin Lispro, Krill Oil, Memantine (most recent addition), Mirabegron, Narcan, Nitroglycerin, Novolog, Potassium Chloride, Pravastatin, Tamsulosin, Truilicity. Smoking Status: Former smoker Hx Smoking: No Hx Tobacco Use: No Hx Smoking Exposure: No Pain Is pain an issue with your current prescribed condition?: No Personal Preferred language: [place] Patient Allergies Allergies Allergies: Allergies lisinopril Adverse Reaction (Verified 04/07/23 10:28) cough * Pediatric & Adult patients Adult Subjective Cog/Ling/Com Subjective Cognitive/Linguistic/Communication: - During conversation re: Pt's medications, Pt reporting that he has a system and doesn't understand why people won't let him continue with it. Ed described his system via first utilizing a pill organizer to place his medications and then he empties the pills from a pill organizer into [employer] cups and stacks them 9 high for 3 days worth of pills (AM+Noon+PM x 3 days = 9). He reports then he takes the bottom cup and removes it from the stack, takes those pills, and then places the empty cup back on top of the stack. When asked if he counts the empty cups each time before taking his next dose to know if he already took them that day or not, Ed reporting no that he doesn't need to do that. - Loretta reporting home health nursing attempted to revamp the system with asking Ed to just keep them in the pill organizer - Ed reportedly getting upset that more things were changing and just wanted to do it the way [he] always has. - Ed demonstrating difficulty with problem solving that if/when the cups fall then there will be 9 doses worth of medication to navigate, pick off the floor, place back in the right pill container, and make sure he has collected all of them - reporting that if they fell he would just pick them up. When asked how he knew which meds to take when, he stated he has M, N, or S on the lid tops to designate morning, noon, or supper and then he just puts them into their sections. When asked if he reads the prescription label each time or if he has them memorized he responded I just know by seeing the name. Questioned further with asking him to provide the dosage for Folic Acid, which Pt reporting I just know when I see it. At this time it is unclear if Pt is truly taking his medications correctly given his difficulty with problem solving and report of prescription. Loretta reporting they were recently prescribed Narcan in the case of an overdose. Loretta is managing Ed's narcotics d/t Ed having Oxycodone tucked into his shirt pocket because he reportedly wanted to finish it up. - Ed is in charge of managing finances and will reportedly open up new credit cards because of the %age back benefits with no awareness for how this affects their credit or ability to pay them back. This is a problem at baseline as it has been going on for many years. - Ed also buys unneeded items off of the internet with no awareness of why this is wrong. This is a problem at baseline as it has been going on for many years. - Ed reporting his daughter removed his circular saw from his apartment because he shouldn't be using it at 78. This upset Ed. When asked how often he uses it, Ed reporting whenever I need to, but I know when I am feeling off to not use it. When asked what activities Ed does on a daily basis he said, watch TV or be on the computer. ARTHUR ARTHUR ARTHUR Administered: Yes ARTHUR: The Assessment of Language-Related Functional Activities (ARTHUR) consists of ten subtests, each of which assesses a different functional activity that are critical for safe independent functioning in the home environment. Each subtest requires the use of all language modalities as well as cognitive and motor skills. Each subtest also allows observance of multiple cognitive processes, which can help eliminate administering specialized tests in certain areas. Independent Functioning Ratings are identified to determine safe independent functioning in the home environment for two distinct age groups: (1) individuals < 65 years of age, and (2) individuals ages 65 years of age and up. Independent Functioning Rating (IFR) are reported as followed; 1= high probability of independent functioning, 2= indication of need for some level of assistance on the task, requiring further exploration, 3= high probability that this individual is not able to function independently on this task. The results of the ARTHUR are as followed: Date: 04/25/23 ARTHUR Comments Administration: -: Due to time constraints of session, unable to administer assessment on this date. Entire session was spent collecting case history and understanding desires of Pt and his family for therapy as well as what is going on at home. Did recommend a follow up session to administer this assessment, however family decided not to pursue therapy - SEE PLAN SECTION BELOW. Reference: Neuro-QoL instrument Radiation Oncology Patient Plan Plan Plan: At the end of the evaluation, ST recommended Pt for weekly outpatient speech therapy to address mild-moderate cognitive impairment characterized by deficits in safety awareness, medication management, and problem solving skills. He would benefit from cognitive training to improve cognitive functioning. Without skilled ST services, the Pt is at risk for decreased independence completing daily living tasks. At the end of the evaluation, Pt scheduled one follow up appt for cont'd cognitive testing - later in the day, Pt's called to cancel appt and reported they will not be pursuing speech therapy at this time despite recommendations for treatment. Thank you for allowing me to evaluate your patient - will re-evaluate following script from physician and Pt's desire to participate. Recommendations Treatment Warranted: Cognition Education Patient has Indicated that the Following Identified Educational Needs: Cognitively Impaired Patient Instruction Patient Education: Diagnosis and Treatment Plan Person Taught: Patient and Family Teaching Method: Discussion and Demonstration Response to teaching: Return demonstration and Verbalize understanding
--- NOTE | 2023-05-24 11:53 | HP.PTDCSUM ---
Discharge Summary D/C summary: It has been my pleasure to treat LUCIA NEGRO referred by Dr. Paulo Nguyen MD, with the diagnosis of Right foot droop, M21.371 for a total of 9 visit(s). Discharge Date: 05/24/23 Please see the following information for a summary of their discharge status. Subjective Subjective: Pt. reports no pain today. Pt. reports having some increased strength in both of his legs. Pain Bilateral Back: Pain Intensity (Out of 10): 0 Objective Objective/Function: 30 sec sit to stand without UEs 11 times, TUsec with FWW 6 MWT: Pt. was able to ambulated for 2:45sec, completed 1 lap tandem stance: 21 sec with R foot fwrd, 24sec with L foot fwrd. MMT: ankle DF 4/5 seated, but unable to complete DF in stance. GAIT: Pt. was able to ambulate well with FWW. He has good foot clearance, not signs of catching his foot with gait. He does have slight fwrd flexed posture, but is well. BERNARDA with FWW. Goals Goal 1:: Pt. will be able to complete at least 5 sit to stands in 30 secs with no arm assist in order to improve mobility. Goal Progress: Goal Met Goal 2:: Pt. will be able to stand/walk for at least 15 minutes with no rest break and least restrictive device in order to improve mobility and endurance Goal Progress: Progressing Goal 3:: Pt. will be able to ascend/descend at least 1 step with rolling walker and mod I in order to complete community entry. Goal Progress: Goal Met Goal 4:: Pt. will be able to complete tandem stance at least 10 secs in order to improve stability and balance. Goal Progress: Goal Met Goal 5:: Pt. will report no falls. Goal Progress: Goal Met Goal 6:: Pt. will improve LEFS score <60% disability in order to improve mobility and endurance. Goal Progress: Goal Met Plan Plan: Pt. to be DC from PT at this point in time D/C Information Discharge Comments: Pt. was treated for BLE strengthening, balance and gait. He progressed well with PT. He met all goals except for walking for 15 minutes continuously. I would like him to work on progressive walking program at home in addition to his LE strengthening exercises he is already compelting. Pt. was okay with this plan. Pt. to be DC from PT at this point in time to HEP. d/c sentence: If there are questions or concerns regarding this patient's physical therapy, please feel free to call me at [phone]. Thank you for the referral of this patient. Sincerely, Can Turner, DPT Balance/Gait/Functional tests Balance/Special Test Scores Lower Extremity Functional Score: 24
== END 2023-05-24 19:00 | disposition home or self-care (01) ==
LOC: PT 11:00
PROVIDERS: PCP Family Medicine; Referring Provider Family Medicine; Visit Provider Family Medicine
DX: R41.841 Cognitive communication deficit (principal); M21.371 Foot drop, right foot
CPT/HCPCS: 97110; 97162; 97164

== ENCOUNTER → 2023-07-11 | Outpatient (CLI) | payer MEDICARE, OTHER, SELFPAY ==
[2021-02-27 07:06] VITALS: BMI 40.4
[2023-07-11 11:57] LABS: BNP,B-Type NATRIURETIC PEPTIDE 120.3 pg/mL (0-100)
[2023-07-11 12:00] LABS: Anion Gap 4 (5-15); BUN 23 mg/dL (7-18); Calcium,Total 8.8 mg/dL (8.5-10.1); Chloride 105 mmol/L (98-107); Creatinine, Serum 1.44 mg/dL (0.70-1.30); EST Glomerular Filtration Rate 50 mL/min (>60); Est Glom Filt Rate - Afr Amer 61 mL/min (>60); Glucose 135 mg/dL (74-106); Potassium 4.7 mmol/L (3.5-5.1); Sodium Level 140 mmol/L (136-145)
== END | disposition home or self-care (01) ==
LOC: LAB 10:30
PROVIDERS: PCP Family Medicine; Visit Provider Nurse Practitioner Gerontology
DX: N18.30 Chronic kidney disease, stage 3 unspecified (principal); R06.09 Other forms of dyspnea
CPT/HCPCS: 36415; 80048; 83880

== ENCOUNTER → 2023-08-18 | Outpatient (CLI) | payer MEDICARE, OTHER, SELFPAY ==
[2021-02-27 07:06] VITALS: BMI 40.4
[2023-08-18 11:10] LABS: Amphetamine Urine VISTA NEGATIVE (<1000 ng/mL); Barbiturate Urine VISTA NEGATIVE (< 200 ng/mL); Benzodiazepine Urine VISTA NEGATIVE (< 200 ng/mL); Cocaine Urine VISTA NEGATIVE (< 300 ng/mL); Ecstacy Urine VISTA NEGATIVE (< 500 ng/mL); Methadone Urine VISTA NEGATIVE (< 300 ng/mL); PCP Urine VISTA NEGATIVE (< 25 ng/mL); THC Urine VISTA NEGATIVE (< 50 ng/mL); Vista UDS pH Range 6
== END | disposition home or self-care (01) ==
LOC: LAB 10:04
PROVIDERS: PCP Family Medicine; Referring Provider Anesthesiology Pain Medicine; Visit Provider Anesthesiology Pain Medicine
DX: F11.20 Opioid dependence, uncomplicated (principal)
CPT/HCPCS: 80307

== ENCOUNTER 2023-11-28 03:40 | Inpatient (IN) | payer MEDICARE, OTHER, SELFPAY ==
[2021-02-27 07:06] VITALS: BMI 40.4
[2023-11-28] VITALS (64 sets, daily range): BP systolic 52–163; BP diastolic 24–126; PULSE 90–124; RESP 12–40; TEMP 36.8–40.2; O2SAT 84–100; BMI 39.6; BMI 40.6
--- NOTE | 2023-11-28 03:53 | RAD_ITS ---
EXAM: XR CHEST, 1 VIEW CLINICAL INDICATION: Dyspnea TECHNIQUE: Frontal view of the chest. COMPARISON: January 21, 2023. FINDINGS: LUNGS AND PLEURAL SPACES: The lung bases are underinflated with moderate wedge-shaped opacity at medial right lung base and completely obscured visualization of the left hemidiaphragm, new from prior exam. Mildly prominent perihilar vessels. No pneumothorax. No effusion. HEART: Stable mild cardiomegaly. MEDIASTINUM: Central airways and mediastinal contour are unremarkable. BONES/JOINTS: See above. SOFT TISSUES: Unremarkable. UPPER ABDOMEN: Moderate gas in the transverse colon. RAD/Chest 1 View (Portable) IMPRESSION: 1. Pulmonary hypoinflation with new moderate wedge-shaped opacity in the medial right lung base and new completely obscured visualization of the left hemidiaphragm. 2. Considerations include atelectasis, infiltrate and infarct. Electronically Signed: Eladia North MD at 5:16 EST ,
--- NOTE | 2023-11-28 03:54 | EKG12_ITS ---
Test Reason : CP Blood Pressure : / mmHG Vent. Rate : 115 BPM Atrial Rate : 000 BPM P-R Int : 000 ms QRS Dur : 104 ms QT Int : 338 ms P-R-T Axes : 000 080 087 degrees QTc Int : 467 ms Atrial fibrillation with rapid ventricular response Low voltage QRS Abnormal ECG Confirmed by HARPER FRANCO, ALMA ([id number]), science editor MARISELA PIERRE ([id number]) on 11/29/2023 9:41:37 AM Referred By: BOZENA Confirmed By:ALMA SALEEM MD
--- NOTE | 2023-11-28 03:55 | ED.VIS.DYS ---
HPI History of Present Illness Chief Complaint: Chest Pain Informant: patient Onset/Context/Timing Onset: Today Context: gradual Timing: Continuous Worsened by: Nothing Relieved by: Nothing Associated Symptoms Negative for cough, fever, chills, clear sputum, white sputum, yellow sputum or green sputum Chest Pain: Positive for Continuous and Dull Narrative Narrative: Patient presents with shortness of breath and chest pain that began today. Patient states that it has gradually gotten worse. Patient states he has not done much activity. Patient states nothing makes his breathing worse and nothing makes it better. Patient denies any cough. Patient denies any fevers or chills. Patient admits to some mild swelling in his legs. Patient also admits to some abdominal pain. Patient is a poor informant. EMS administered aspirin and nitroglycerin. [facility] Medical History Atherosclerotic heart disease of [place] coronary artery without angina pectoris Cardiomyopathy Cataracts, both eyes Chest pain Congestive heart failure (CHF) CPAP (continuous positive airway pressure) dependence Dementia DM type 2 (diabetes mellitus, type 2) DVT (deep venous thrombosis) Essential hypertension Former smoker Hyperlipidemia Kidney disease NSTEMI (non-ST elevated myocardial infarction) Obesity Pericardial effusion Presence of stent in coronary artery (10/20/19) Shingles Sleep apnea Spinal stenosis Home Medications folic acid 400 mcg tablet 400 mcg PO DAILY supplement 10/19/19 [History Last Taken 09/08/21] tamsulosin 0.4 mg capsule 0.4 mg PO QHS BPH 07/02/20 [History Last Taken 09/10/21 21:00] docusate sodium 100 mg capsule (Colace) 100 mg PO BID 10/29/21 [History Last Taken Unknown] krill oil 500 mg capsule 500 mg PO DAILY 10/29/21 [History Last Taken Unknown] baclofen 10 mg tablet 10 mg PO TID PRN Muscle pain/spasm #90 tabs 11/02/21 [Rx Last Taken Unknown] cholecalciferol (vitamin D3) 50 mcg (2,000 unit) capsule 50 mcg PO DAILY 01/28/22 [History Last Taken Unknown] naloxone 0.4 mg/0.4 mL injection, auto-injector 4 mg IM PRN 05/25/22 [History Last Taken Unknown] nitroglycerin 0.4 mg sublingual tablet 0.4 mg sublingual Q5-15M PRN Chest Pain 01/05/23 [History Last Taken Unknown] albuterol sulfate 90 mcg/actuation aerosol inhaler 2 puff inhalation Q4H PRN PRN Shortness Of Breath 01/21/23 [History Last Taken Unknown] acetaminophen 500 mg tablet 1,000 mg (2 x 500 mg) PO Q8H PRN PRN Pain Score 1-3 #0 tabs 01/25/23 [Rx Last Taken Unknown] aspirin 81 mg tablet,delayed release (Adult Aspirin Regimen) 81 mg PO DAILY 03/10/23 [History Last Taken Unknown] carvedilol 3.125 mg tablet 3.125 mg PO BIDCM #180 tabs 04/07/23 [Rx Last Taken Unknown] hydrocodone-acetaminophen 5-325mg 5mg-325mg 2 tab PO DAILY PRN Pain 04/07/23 [History Last Taken Unknown] insulin glargine 100 unit/mL (3 mL) subcutaneous pen (Basaglar KwikPen U-100 Insulin) 38 unit subcut BID diabetes 04/07/23 [History Last Taken Unknown] potassium chloride 20 mEq tablet,extended release 20 meq PO BID #180 tabs 05/02/23 [Rx Last Taken Unknown] gabapentin 600 mg tablet 600 mg PO .6xday 07/11/23 [History Last Taken Unknown] atorvastatin 40 mg tablet 40 mg PO DAILY 09/08/23 [History Last Taken Unknown] duloxetine 60 mg capsule,delayed release sprinkle (Drizalma Sprinkle) 60 mg PO DAILY 09/08/23 [History Last Taken Unknown] memantine 5 mg tablet 5 mg PO BID 11/18/23 [History Last Taken Unknown] dulaglutide 0.75 mg/0.5 mL subcutaneous pen injector (Trulicity) 0.75 mg subcut QWEEK 11/23/23 [History Last Taken Unknown] furosemide 40 mg tablet 40 mg PO BID 11/23/23 [History Last Taken Unknown] clopidogrel 75 mg tablet 75 mg PO DAILY #90 tabs 11/24/23 [Rx Last Taken Unknown] insulin aspart U-100 100 unit/mL subcutaneous solution (Novolog U-100 Insulin aspart) 16 unit subcut BREAKFAST 11/28/23 [History Last Taken Unknown] insulin aspart U-100 100 unit/mL subcutaneous solution (Novolog U-100 Insulin aspart) 18 unit subcut 1200,1700 11/28/23 [History Last Taken Unknown] metolazone 5 mg tablet 5 mg PO DAILY 11/28/23 [History Last Taken Unknown] Allergy/AdvReac Type Severity Reaction Status Date / Time lisinopril AdvReac cough Verified 07/11/23 10:07 Surgical History H/O knee surgery History of back surgery History of left heart catheterization (10/20/19) Presence of coronary angioplasty implant and graft (~10/20/19) Social History household members: spouse Smoking Status: Former smoker how long ago did patient quit smokin+ years used cigars ocationally alcohol intake: current alcohol intake frequency: a few times a month Alcohol type: beer substance use type: does not use caffeine: No EXAM Physical Exam Const Vital Signs: 11/28/23 03:41 11/28/23 04:05 11/28/23 04:47 Temperature 98.3 F Temperature Source Oral Pulse Rate 120 H 112 H Respiratory Rate 38 H 23 H Respiratory Pattern Blood Pressure 163/111 H 83/64 L Blood Pressure Mean 128 70 Blood Pressure Source Blood Pressure Position Blood Pressure Location Pulse Ox 84 88 92 Oxygen Delivery Method Room Air Nasal Cannula Nasal Cannula Oxygen Flow Rate (L/min) 4 5 Fraction of Inspired Oxygen (FIO2) 11/28/23 05:00 11/28/23 04:42 11/28/23 05:42 Temperature 98.3 F 103.5 F H Temperature Source Oral Core Pulse Rate 103 H 112 H 99 Respiratory Rate 38 H 23 H 30 H Respiratory Pattern Blood Pressure 86/54 L 83/64 L 87/59 L Blood Pressure Mean 64 70 68 Blood Pressure Source Monitor Blood Pressure Position Semi-Fowlers Blood Pressure Location Left Arm Pulse Ox 92 88 94 Oxygen Delivery Method Nasal Cannula Nasal Cannula Bi-pap Oxygen Flow Rate (L/min) 5 4 Fraction of Inspired Oxygen (FIO2) 11/28/23 05:30 11/28/23 05:15 11/28/23 05:30 Temperature 102.2 F H 103.4 F H Temperature Source Core Core Pulse Rate 100 99 98 Respiratory Rate 30 H 29 H 30 H Respiratory Pattern Tachypnea Blood Pressure 85/68 L 87/59 L Blood Pressure Mean 73 68 Blood Pressure Source Blood Pressure Position Blood Pressure Location Pulse Ox 92 93 93 Oxygen Delivery Method Nasal Cannula Bi-pap Oxygen Flow Rate (L/min) 5 Fraction of Inspired Oxygen (FIO2) 40 40 11/28/23 06:00 11/28/23 05:45 11/28/23 06:15 Temperature 103.4 F H 103.5 F H 103.2 F H Temperature Source Core Core Core Pulse Rate 96 101 H 102 H Respiratory Rate 29 H 30 H 29 H Respiratory Pattern Blood Pressure 91/61 92/64 96/68 Blood Pressure Mean 71 73 77 Blood Pressure Source Blood Pressure Position Blood Pressure Location Pulse Ox 94 94 94 Oxygen Delivery Method Bi-pap Bi-pap Bi-pap Oxygen Flow Rate (L/min) Fraction of Inspired Oxygen (FIO2) 40 40 40 11/28/23 06:27 11/28/23 06:42 11/28/23 06:54 Temperature 103.2 F H 103.0 F H Temperature Source Core Core Pulse Rate 106 H 98 Respiratory Rate 29 H 28 H Respiratory Pattern Blood Pressure 90/70 99/72 Blood Pressure Mean 76 81 Blood Pressure Source Blood Pressure Position Blood Pressure Location Pulse Ox 95 95 94 Oxygen Delivery Method Bi-pap Bi-pap Nasal Cannula Oxygen Flow Rate (L/min) 5 Fraction of Inspired Oxygen (FIO2) 40 40 11/28/23 07:21 11/28/23 07:00 Temperature Temperature Source Pulse Rate 99 90 Respiratory Rate 27 H 26 H Respiratory Pattern Tachypnea Blood Pressure 81/52 L Blood Pressure Mean 61 Blood Pressure Source Blood Pressure Position Blood Pressure Location Pulse Ox 96 95 Oxygen Delivery Method Room Air Oxygen Flow Rate (L/min) Fraction of Inspired Oxygen (FIO2) 40 MDM MDM MDM Narrative Medical decision making narrative: Differential diagnosis includes cardiac dysrhythmia, cardiac ischemia, electrolyte abnormality, pneumonia, pneumothorax, congestive heart failure, pulmonary embolism, and anemia. EKG will be obtained to assess for cardiac dysrhythmia and cardiac ischemia. Chest x-ray will be obtained to assess for congestive heart failure, pneumonia, and pneumothorax. CBC will be obtained to assess for leukocytosis and anemia. Basic metabolic profile will be obtained to assess for electrolyte abnormality and renal function. High-sensitivity troponin will be obtained to assess for cardiac ischemia. 2-hour repeat high-sensitivity troponin will be obtained to assess for ongoing cardiac ischemia. BNP will be obtained to assess for congestive heart failure. D-dimer will be obtained to assess for pulmonary embolism. Arterial blood gas will be obtained to assess for oxygen base status and pH status. Serum lactate will be obtained to assess for sepsis. PT with INR and PTT will be obtained to assess for coagulopathy. COVID-19, influenza, and RSV will be obtained to assess for viral illness. Blood cultures will be obtained to assess for sepsis. Lab Data Attestation: I reviewed the patient's lab results. Lab results narrative: CBC was reviewed. White blood cell count was elevated at 17.1. Hemoglobin was 16.9. Platelets were normal. PT was INR and PTT were reviewed. Pro time was 21.5 and INR is 1.9. PTT was 53.4. D-dimer was reviewed and was greater than 20. Basic metabolic profile was reviewed. Potassium was slightly low at 3.1. BUN was 22 and creatinine was 2.3. These are increased from previous results. Serum lactate was reviewed and was elevated at 7.3. High-sensitivity troponin was reviewed and was 74. 2-hour repeat high-sensitivity troponin was reviewed and was 118. BNP was reviewed and was only slightly elevated at 130.6. Arterial blood gas was reviewed. pH was 7.44, bicarb was 21.1, pCO2 was 31.3 and pO2 was 67. This was drawn on 5 L nasal cannula. COVID-19 PCR was reviewed and was negative. Influenza PCR was reviewed and was negative for influenza a and influenza B. RSV PCR was reviewed and was negative. Labs: Laboratory Results - last 24 hr 11/28/23 11/28/23 11/28/23 03:47 03:52 04:10 WBC 17.1 H RBC 5.34 Hgb 16.9 H Hct 53.9 MCV 100.9 H MCH 31.6 MCHC 31.4 L RDW Std Deviation 59.8 H RDW Coeff of Susan 16.1 H Plt Count 163 MPV 10.8 Immature Gran % (Auto) 2.000 H Neut % (Auto) 95.9 H Lymph % (Auto) 1.1 L [place] % (Auto) 0.2 Eos % (Auto) 0.3 Baso % (Auto) 0.5 Absolute Neuts (auto) 16.4 H Absolute Lymphs (auto) 0.18 L Nucleated RBC % 0.5 Differential Comment SCANNED Atypical Lymphocytes 1+ PT 21.5 H INR 1.9 APTT 53.4 H D-Dimer Quant (PE/DVT) > 20.00 H* Sodium 140 Potassium 3.1 L Chloride 103 Carbon Dioxide 24.0 Anion Gap 13 BUN 22 H Creatinine 2.30 H Estim Creat Clear Calc 32.03 Est GFR (MDRD) Af Amer 35 L Est GFR (MDRD) Non-Af 29 L BUN/Creatinine Ratio 9.6 L Glucose 136 H Lactic Acid 7.3 H* Calcium 8.9 Troponin I High Sens 74 B-Natriuretic Peptide 130.6 H POC Glucose 140 H 11/28/23 06:20 WBC RBC Hgb Hct MCV MCH MCHC RDW Std Deviation RDW Coeff of Susan Plt Count MPV Immature Gran % (Auto) Neut % (Auto) Lymph % (Auto) [place] % (Auto) Eos % (Auto) Baso % (Auto) Absolute Neuts (auto) Absolute Lymphs (auto) Nucleated RBC % Differential Comment Atypical Lymphocytes PT INR APTT D-Dimer Quant (PE/DVT) Sodium Potassium Chloride Carbon Dioxide Anion Gap BUN Creatinine Estim Creat Clear Calc Est GFR (MDRD) Af Amer Est GFR (MDRD) Non-Af BUN/Creatinine Ratio Glucose Lactic Acid Calcium Troponin I High Sens 118 H B-Natriuretic Peptide POC Glucose ABG Data ABG results: ABG 11/28/23 05:17 Specimen Type ART Sample Site L Radial pH 7.44 Bicarbonate Actual 21.1 L Total CO2 22 Base Excess -3 L O2 Saturation 94 L O2 % 5.0 ABG pCO2 31.3 L ABG pO2 67 L Jose Test Positive O2 Delivery Device Cannula Vent Mode Not entered Radiography Chest X-Ray - ED: 1 View, Read by ED Physician, Read by Radiologist and Right Infiltrate CTA PE Study: No Evidence of PE Diagnostic Testing: Clinical Impression(s) from Imaging Studies Chest X-Ray 11/28/23 03:53 IMPRESSION: 1. Pulmonary hypoinflation with new moderate wedge-shaped opacity in the medial right lung base and new completely obscured visualization of the left hemidiaphragm. 2. Considerations include atelectasis, infiltrate and infarct. Electronically Signed: Eladia North MD at 5:16 EST Reading Location ID and State: [facility] / [place] Tel , Service support , Chest CTA 11/28/23 06:41 IMPRESSION: 1. No evidence of PE. Normal aortic caliber. 2. Mild to moderate pericardial effusion, especially posterior to the heart. Advanced coronary artery calcifications and suspected stents. 3. Mediastinal lipomatosis and borderline mediastinal lymph nodes. 4. Bilateral dependent mild lung opacities and slight perihilar opacities. Electronically Signed: Eladia North MD at 7:39 EST Reading Location ID and State: [facility] / [place] Tel , Service support , Portable chest x-ray was obtained. There is 1 view. On my independent interpretation, there is opacity in the right lung base. There is cardiomegaly. Bony thorax is normal. Radiologist also interpreted the x-ray and agrees. Because of the elevated D-dimer, CTA of the chest was obtained. There are bilateral infiltrates noted, worse on the left. There is no evidence of pulmonary embolism. EKG Initial EKG: Attestation: I personally reviewed and interpreted this EKG as follows: Interpretation: Atrial Fibrillation (115) and Non-Specific ST Changes Comments: EKG was obtained. On my independent interpretation it shows atrial fibrillation with a rate of 115. QRS interval was normal at 104 ms. QTc interval was normal at 467 ms. [place] was normal. There are some nonspecific ST-T wave changes noted. Management Discussion w/another healthcare provider: Hospitalist (Dr. Brunson) and Turret Lathe Machinist (Dr. Gudino from ICU) Treatment and Re-Evaluation :: Patient was ordered Cardizem and Lasix initially. Prior to giving the Cardizem, patient's blood pressure dropped. Patient was then given IV fluids. Patient was started on Zosyn and vancomycin. Patient was started on BiPAP. Patient was given a dose of IV potassium. Patient was given a dose of rectal Tylenol. Patient's blood pressure has remained low. Patient was started on Levophed. After obtaining the BNP results, patient was ordered more IV fluids to complete a 30 cc/kg bolus. Case was discussed with Dr. Gudino from ICU. He agreed with the treatment. He will see the patient in ICU. Case was discussed with the hospitalist. He will admit the patient to ICU. Patient is agreeable with the plan. Critical Care Time Critical Care Time: Yes Critical care time (excluding procedures): 30-74 minutes (44), Including time spent:, Discussing w/Patient &/or Family/Medical Clerk, Discussing w/Consultants, Arranging Admission or Transfer and Performing Direct Patient Care at Bedside Discharge Plan Dx/Rx/DC Orders Clinical Impression: Septic shock, Hypokalemia, Obesity, Pneumonia, Hypotension, Atrial fibrillation Disposition Disposition: Acute Care [facility]
--- OUTSIDE RECORDS SUMMARY | 2023-11-28 04:11 | XMS RPT_ITS | CCD ---
Author Name Unknown Address [address] [place] [address] Organization [facility] Team Providers Care Cloth Roll Winder Name Role Phone Dung Nguyen MD Primary Care Provider Brea Ever F Unavailable [facility], Keti Unavailable Gabriela BARNETT, Chari Garcia Unavailable Unavail able Shearer DO, Flakito Unavailable Shakira Stafford Unavailable Dung Nguyen MD Primary Care Provider Brea Ever F Unavailable [facility], Keti Unavailable Gabriela BARNETT, Chari Garcia Unavailable Shearer DO, Flakito Unavailable BasaliShakira Unavailable Gabriel BARNETT, Kendrick Unavailable Dung Nguyen MD Primary Care Provider Brea Ever F Unavailable [facility], Keti Unavailable Shearer DO, Flakito Unavailable EchoiShakira Unavailable Gabriel BARNETT, Kendrick Unavailable Gabriel BARNETT, Kendrick Unavailable Shearer DO, Flakito Unavailable Shearer DO, Flakito Unavailable BasaliShakira Unavailable Gabriel BARNETT, Kendrick Unavailable [phone] Rivera FRANCO, Shakira Daily Unavailable Brea FRANCO, Ever Rivero Unavailable [facility], Keti Unavailable [facility], Keti Unavailable [facility], Radha Unavailable DUNG NGUYEN Primary Care Unavailab DUNG Krause Primary Care Unavailab DUNG Krause Attending Unavailab DUNG Krause Primary Care Unavailab SHI Gimenez Attending Unavailable DUNG NGUYEN Primary Care Unavailab DUNG Krause Referring Unavailab GEORGETTE Melgar Attending Unavailable DUNG NGUYEN Referring Unavailab DUNG Krause Primary Care Unavailab DUNG Krause Attending Unavailab DUNG Krause Primary Care Unavailab DUNG Krause Referring Unavailab DUNG Krause Primary Care Unavailab NICKI Negro Attending Unavailable DUNG GNUYEN Primary Care Unavailab NICKI Negro Referring Unavailable DUNG NGUYEN Primary Care Unavailab DUNG Krause Referring Unavailab DUNG Krause Primary Care Unavailab DUNG Krause Primary Care Unavailab DUNG Krause Attending Unavailab DUNG Krause Referring Unavailab DUNG Krause Primary Care Unavailab DUNG Krause Attending Unavailab DUNG Krause Primary Care Unavailab DUNG Krause Referring Unavailab DUNG Krause Primary Care Unavailab DUNG Krause Referring Unavailab DUNG Krause Primary Care Unavailab DUNG Krause Referring Unavailab DUNG Krause Primary Care Unavailab VANE Cortes Attending Unavailable NICKI EUCEDA Referring Unavailable DUNG NGUYEN Primary Care Unavailab DUNG Krause Primary Care Unavailab NICKI Nergo Referring Unavailable DUNG NGUYEN Primary Care Unavailab DUNG Krause Referring Unavailab MARIA LUISA Jung Attending Unavailable DUNG NGUYEN Primary Care Unavailab le DUNG NGUYEN Primary Care Unavailab nic TEOGEORGETTE Attending Unavailable DUNG NGUYEN Referring Unavailab le DUNG NGUYEN Primary Care Unavailab DUNG Krause Attending Unavailab DUNG Krause Primary Care Unavailab le DUNG NGUYEN Referring Unavailab DUNG Krause Primary Care Unavailab NICKI Negro Referring Unavailable DUNG NGUYEN Primary Care Unavailab NICIK Negro Referring Unavailable DUNG NGUYEN Primary Care Unavailab le DUNG NGUYEN Referring Unavailab le DUNG NGUYEN Primary Care Unavailab DUNG Krause Primary Care Unavailab DUNG Krause Attending Unavailab NICKI Negro Referring Unavailable DUNG NGUYEN Primary Care Unavailab DUNG Krause Attending Unavailab DUNG Krause Primary Care Unavailab DUNG Krause Referring Unavailab DUNG Krause Primary Care Unavailab DUNG Krause Primary Care Unavailab DUNG Krause Primary Care Unavailab SHI Gimenez Attending Unavailable SHI NEWBERRY Referring Unavailable DUNG NGUYEN Referring Unavailab DUNG Krause Primary Care Unavailab DUNG Krause Referring Unavailab DUNG Krause Primary Care Unavailab DUNG Krause Attending Unavailab DUNG Krause Primary Care Unavailab DUNG Krause Primary Care Unavailab DUNG Krause Referring Unavailab DUNG Krause Primary Care Unavailab DUNG Krause Attending Unavailab DUNG Krause Primary Care Unavailab DUNG Krause Referring Unavailab le TESTSHI GENAO Attending Unavailable DUNG NGUYEN Primary Care Unavailab DUNG Krause Referring DUNG Isaac Primary Care UnavailDUNG King Referring DUNG Isaac Primary Care Unavailab le Allergies Allergy Classification Reported Allergen(s) Allergy Type Date of Onset Reaction(s) Facility (20 sources) Lisinopril; Translations: [LISINOPRIL] Drug Allergy 08-07-2018 Cough [facility] Work Phone: Medications Current Medications Medication Drug Class(es) Dates Sig (Normalized) Sig (Original) atorvastatin 40 mg oral tablet (17 sources) HMG-CoA Reductase Inhibitor Start: 08-16-2023 End: 11-16-2024 take 1 tablet by mouth once daily at bedtime for hyperlipidemia atorvastatin (LIPITOR) 40 mg tablet Take 1 tablet by mouth daily at bedtime. For cholesterol. 90 tablet 3 11/17/2023 11/16/2024 Active Completed/Discontinued Medications Medication Drug Class(es) Dates Sig (Normalized) Sig (Original) acetaminophen 325 mg / HYDROcodone bitartrate 5 mg oral tablet (20 sources) Opioid Agonist Start: 03-17-2022 HYDROcodone-acetam inophen (NORCO) 5-325 mg per tablet Take 1 tablet by mouth twice daily. Patient report he take 1 @ 8a and 8p 0 03/17/2022 Active Problems Active Problems Problem Classification Problem Date Documented Da te Episodic/Chronic Anxiety disorders (1 source) Repetitive self-excoriation; Translations: [Excoriation (skin-picking) disorder] Chronic Blindness and vision defects (1 source) Visual hallucinations; Translations: [Visual hallucinations] Episodic Chronic kidney disease (20 sources) Chronic kidney disease stage 3; Translations: [Chronic kidney disease (CKD), stage III (moderate)] 10-31-2019 Chronic Chronic kidney disease (2 sources) Chronic kidney disease; Translations: [Stage 3a chronic kidney disease (HCC)] Onset: 10-31-2019 Chronic ulcer of skin (5 sources) Superficial skin ulcer of lower limb; Translations: [Non-pressure chronic ulcer of unspecified part of unspecified lower leg limited to breakdown of skin] Onset: 01-04-2023 Chronic Congestive heart failure; nonhypertensive (20 sources) Systolic heart failure; Translations: [Unspecified systolic (congestive) heart failure] Onset: 06-01-2022 06-01-2022 Chronic Coronary atherosclerosis and other heart disease (20 sources) Coronary arteriosclerosis; Translations: [Atherosclerotic heart disease of [place] coronary artery without angina pectoris] Onset: 06-06-2020 06-06-2020 Chronic Delirium, dementia, and amnestic and other cognitive disorders (20 sources) Dementia; Translations: [Unspecified dementia without behavioral disturbance] Onset: 04-07-2023 Chronic Diabetes mellitus with complications (20 sources) Type 2 diabetes mellitus; Translations: [Type 2 diabetes mellitus with diabetic chronic kidney disease] Onset: 06-04-2020 06-04-2020 Chronic Diabetes mellitus without complication (6 sources) Type 2 diabetes mellitus without complication; Translations: [Type 2 diabetes mellitus without complications] Chronic Diabetes mellitus without complication (1 source) Diabetes mellitus without complication; Translations: [Controlled type 2 diabetes mellitus with stage 3 chronic kidney disease, with long-term current use of insulin (HCC)] Onset: 06-04-2020 Diseases of mouth; excluding dental (1 source) Furred tongue; Translations: [Hypertrophy of tongue papillae] Episodic Disorders of lipid metabolism (20 sources) Hyperlipidemia; Translations: [Hyperlipidemia, unspecified] Onset: 03-30-2018 03-30-2018 Chronic Essential hypertension (20 sources) Hypertensive disorder; Translations: [Essential (primary) hypertension] Onset: 03-30-2018 03-30-2018 Chronic Heart valve disorders (1 source) Non-rheumatic mitral regurgitation ; Translations: [Nonrheumatic mitral (valve) insufficiency] 07-14-2023 Chronic Hyperplasia of prostate (20 sources) Benign prostatic hyperplasia; Translations: [Benign prostatic hyperplasia without lower urinary tract symptoms] Onset: 03-30-2018 03-30-2018 Chronic Hypertension with complications and secondary hypertension (20 sources) Hypertensive heart AND chronic kidney disease stage 3; Translations: [Hypertensive heart and chronic kidney disease without heart failure, with stage 1 through stage 4 chronic kidney disease, or unspecified chronic kidney disease] Onset: 06-04-2020 06-04-2020 Chronic Immunizations and screening for infectious disease (2 sources) Patient encounter status; Translations: [Encounter for immunization] Episodic Inflammation; infection of eye (except that caused by tuberculosis or sexually transmitteddisease) (2 sources) Herpes zoster with ophthalmic complication; Translations: [Zoster ocular disease, unspecified] Episodic Mood disorders (4 sources) Reactive depression (situational); Translations: [Major depressive disorder, single episode, unspecified] Onset: 08-16-2023 08-09-2023 Chronic Mycoses (7 sources) Onychomycosis; Translations: [Tinea unguium] Episodic Neoplasms of unspecified nature or uncertain behavior (1 source) Neoplastic disease; Translations: [Neoplasm of unspecified behavior of bone, soft tissue, and skin] 08-03-2023 Episodic Osteoarthritis (20 sources) Osteoarthritis; Translations: [Unspecified osteoarthritis, unspecified site] 03-30-2018 Chronic Other bone disease and musculoskeletal deformities (3 sources) Disorder of bone; Translations: [Disorder of bone, unspecified] 06-27-2023 Episodic Other connective tissue disease (6 sources) Pain of toe of left foot; Translations: [Pain in left toe(s)] Episodic Other connective tissue disease (6 sources) Pain of toe of right foot; Translations: [Pain in right toe(s)] Episodic Other connective tissue disease (2 sources) Neuropathic pain; Translations: [Neuralgia and neuritis, unspecified] 08-09-2023 Episodic Other diseases of bladder and urethra (4 sources) Overactive bladder; Translations: [Overactive bladder] Chronic Other diseases of bladder and urethra (1 source) Overactive bladder; Translations: [OAB (overactive bladder)] Onset: 01-04-2023 Chronic Other hereditary and degenerative nervous system conditions (2 sources) Impaired cognition; Translations: [Mild cognitive impairment, so stated] Chronic Other hereditary and degenerative nervous system conditions (1 source) Mild cognitive impairment, so stated; Translations: [Mild cognitive impairment] Onset: 04-04-2023 Chronic Other injuries and conditions due to external causes (1 source) Open wound of skin; Translations: [Other injury of unspecified body region, initial encounter] Episodic Other lower respiratory disease (20 sources) Fibrosis of lung; Translations: [Pulmonary fibrosis, unspecified] Onset: 07-05-2023 07-05-2023 Chronic Other lower respiratory disease (1 source) Pulmonary fibrosis, unspecified; Translations: [Pulmonary fibrosis (HCC)] Onset: 07-05-2023 Chronic Other lower respiratory disease (1 source) Dyspnea; Translations: [Dyspnea, unspecified] Episodic Other lower respiratory disease (1 source) Wheezing; Translations: [Wheezing] Episodic Other lower respiratory disease (1 source) Dyspnea on exertion; Translations: [Other forms of dyspnea] Episodic Other lower respiratory disease (1 source) Other nonspecific abnormal finding of lung field; Translations: [Other nonspecific abnormal finding of lung field] 07-04-2023 Episodic Other nervous system disorders (1 source) Cognitive deficit in communication skills; Translations: [Cognitive communication deficit] Chronic Other nervous system disorders (1 source) Other chronic pain; Translations: [Chronic midline low back pain without sciatica] Onset: 03-30-2018 Chronic Other nutritional; endocrine; and metabolic disorders (20 sources) Obese class II; Translations: [Obesity, unspecified] Onset: 08-26-2020 08-26-2020 Chronic Other nutritional; endocrine; and metabolic disorders (20 sources) Body mass index 40+ - severely obese; Translations: [Morbid (severe) obesity due to excess calories] Onset: 11-18-2020 11-18-2020 Chronic Other nutritional; endocrine; and metabolic disorders (2 sources) Obesity; Translations: [Obesity, unspecified] Chronic Other nutritional; endocrine; and metabolic disorders (1 source) Morbid obesity; Translations: [Morbid (severe) obesity due to excess calories] 07-14-2023 Chronic Other nutritional; endocrine; and metabolic disorders (1 source) Morbid (severe) obesity due to excess calories; Translations: [Obesity, Class III, BMI 40-49.9 (morbid obesity) ([facility])] Onset: 11-18-2020 Chronic Other nutritional; endocrine; and metabolic disorders (1 source) Obesity, unspecified; Translations: [Obesity, Class II, BMI 35-39.9] Onset: 08-26-2020 Chronic Other upper respiratory infections (2 sources) Viral upper respiratory tract infection; Translations: [Acute upper respiratory infection, unspecified] Episodic Phlebitis; thrombophlebitis and thromboembolism (6 sources) Acute deep vein thrombosis of lower limb; Translations: [Acute embolism and thrombosis of unspecified deep veins of right proximal lower extremity] Onset: 02-23-2023 02-23-2023 Episodic Residual codes; unclassified (20 sources) Obstructive sleep apnea syndrome; Translations: [Obstructive sleep apnea (adult) (pediatric)] 05-31-2019 Chronic Residual codes; unclassified (1 source) Obstructive sleep apnea (adult) (pediatric); Translations: [RYLAND (obstructive sleep apnea)] Onset: 08-11-2022 Chronic Residual codes; unclassified (20 sources) Bilateral lower limb edema; Translations: [Localized edema] 03-30-2018 Episodic Residual codes; unclassified (2 sources) Memory impairment; Translations: [Other amnesia] Episodic Secondary malignancies (4 sources) Secondary malignant neoplasm of bone; Translations: [Secondary malignant neoplasm of bone] 06-30-2023 Chronic Secondary malignancies (1 source) Secondary malignant neoplasm of bone; 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)] Onset: 06-30-2023 Chronic Spondylosis; intervertebral disc disorders; other back problems (1 source) Degeneration of lumbar intervertebral disc; Translations: [Other intervertebral disc degeneration, lumbar region] Chronic Substance-related disorders (1 source) Finding related to substance use; Translations: [Opioid use, unspecified, uncomplicated] Episodic Superficial injury; contusion (2 sources) Contusion of left lesser toe; Translations: [Contusion of left lesser toe(s) without damage to nail, initial encounter] Episodic Unclassified (1 source) Chronic midline low back pain without sciatica; Translations: [Chronic midline low back pain without sciatica] Onset: 03-30-2018 Past or Other Problems Problem Classification Problem Date Documented Da te Episodic/Chronic Acquired foot deformities (5 sources) Right foot drop; Translations: [Foot drop, right foot] Onset: 05-17-2023 Episodic Acute and unspecified renal failure (3 sources) Acute injury of kidney; Translations: [Acute kidney failure, unspecified] Onset: 04-06-2023 Episodic Administrative/social admission (20 sources) Discharge status; Translations: [Encounter for administrative examinations, unspecified] Onset: 08-25-2020 08-25-2020 Episodic Conditions associated with dizziness or vertigo (2 sources) Lightheadedness; Translations: [Dizziness and giddiness] Onset: 01-19-2023 Episodic Diabetes mellitus without complication (2 sources) Hyperglycemia; Translations: [Hyperglycemia, unspecified] Onset: 01-19-2023 Episodic Fluid and electrolyte disorders (8 sources) Hypokalemia; Translations: [Hypokalemia] Onset: 01-19-2023 Episodic Genitourinary symptoms and ill-defined conditions (1 source) Nocturia; Translations: [Benign prostatic hyperplasia with nocturia] Onset: 03-30-2018 Episodic Malaise and fatigue (1 source) Weakness; Translations: [Generalized weakness] Onset: 01-31-2023 Episodic Other aftercare (2 sources) assisted (current) use of insulin; Translations: [Type 2 diabetes mellitus with diabetic polyneuropathy, with long-term current use of insulin (HCC)] Onset: 06-04-2020 Episodic Other bone disease and musculoskeletal deformities (1 source) Disorder of bone, unspecified; Translations: [Disorder of bone] Onset: 06-29-2023 Episodic Other gastrointestinal disorders (1 source) Constipation, unspecified; Translations: [Acute constipation] Onset: 01-31-2023 Episodic Other lower respiratory disease (1 source) Other forms of dyspnea; Translations: [AREVALO (dyspnea on exertion)] Onset: 01-04-2023 Episodic Residual codes; unclassified (1 source) Localized edema; Translations: [Bilateral lower extremity edema] Onset: 03-30-2018 Episodic Spondylosis; intervertebral disc disorders; other back problems (20 sources) Chronic low back pain; Translations: [Chronic lower back pain] Onset: 06-21-2023 03-30-2018 Episodic Viral infection (6 sources) Herpes zoster without complication; Translations: [Zoster without complications] Onset: 01-04-2023 Episodic Results Test Name Value Interpretation Reference Range Facil ity Vital Signs Date Time Vital Sign Value Performing Clinician Zara mckeon 08-16-2023 11:16-0500 Body weight 119.02 kg Dung Nguyen MD Work Phone: [facility] 08-16-2023 11:16-0500 Diastolic blood pressure 70 mm[Hg] Dung Nguyen MD Work Phone: [facility] 08-16-2023 11:16-0500 Heart rate 84 /min Dung Nguyen MD Work Phone: [facility] 08-16-2023 11:16-0500 Respiratory rate 18 /min Dung Nguyen MD Work Phone: [facility] 08-16-2023 11:16-0500 SaO2% (BldA) [Mass fraction] 98 % Dung Nguyen MD Work Phone: [facility] 08-16-2023 11:16-0500 Systolic blood pressure 120 mm[Hg] Dung Nguyen MD Work Phone: [facility] 08-09-2023 12:39-0400 Body weight 119.66 kg Georgette Bruce MD Work Phone: [facility] 08-09-2023 12:39-0400 Diastolic blood pressure 58 mm[Hg] Georgette Bruce MD Work Phone: [facility] 08-09-2023 12:39-0400 Heart rate 49 /min Georgette Bruce MD Work Phone: [facility] 08-09-2023 12:39-0400 Systolic blood pressure 87 mm[Hg] Georgette Bruce MD Work Phone: [facility] 08-03-2023 10:59-0400 Body height 173.4 cm Maria Luisa Momin PA-C Work Phone: [facility] 08-03-2023 10:59-0400 Body weight 118.48 kg Maria Luisa Momin PA-C Work Phone: [facility] 08-03-2023 10:59-0400 Diastolic blood pressure 71 mm[Hg] Maria Luisa Momin PA-C Work Phone: [facility] 08-03-2023 10:59-0400 Heart rate 64 /min Maria Luisa Momin PA-C Work Phone: [facility] 08-03-2023 10:59-0400 SaO2% (BldA) [Mass fraction] 96 % Maria Luisa Momin PA-C Work Phone: [facility] 08-03-2023 10:59-0400 Systolic blood pressure 103 mm[Hg] Maria Luisa Momin PA-C Work Phone: [facility] 07-13-2023 08:45-0400 Body height 167.3 cm Vane Mancuso PA-C Work Phone: [facility] 07-13-2023 08:45-0400 Body weight 120.66 kg Vane Mancuso PA-C Work Phone: [facility] 07-13-2023 08:45-0400 Heart rate 69 /min Vane Bartolome PA-C Work Phone: [facility] 07-13-2023 08:45-0400 Respiratory rate 16 /min Vane Bartolome PA-C Work Phone: [facility] 07-13-2023 08:45-0400 SaO2% (BldA) [Mass fraction] 95 % Vane Bartolome PA-C Work Phone: [facility] 07-13-2023 08:01-0400 Body height 167.3 cm Pulm Wstr Work Phone: [facility] 07-13-2023 08:01-0400 Body weight 120.66 kg Pulm Wstr Work Phone: [facility] 07-13-2023 08:01-0400 Heart rate 69 /min Pulm Wstr Work Phone: [facility] 07-13-2023 08:01-0400 Respiratory rate 16 /min Pulm Wstr Work Phone: [facility] 07-13-2023 08:01-0400 SaO2% (BldA) [Mass fraction] 95 % Pulm Wstr Work Phone: [facility] 05-04-2023 11:12-0400 Body height 173.4 cm Dung Nguyen MD Work Phone: [facility] 05-04-2023 11:12-0400 Body weight 117.03 kg Dung Nguyen MD Work Phone: [facility] 05-04-2023 11:12-0400 Diastolic blood pressure 60 mm[Hg] Dung Nguyen MD Work Phone: [facility] 05-04-2023 11:12-0400 Heart rate 60 /min uDng Nguyen MD Work Phone: [facility] 05-04-2023 11:12-0400 Respiratory rate 16 /min Dung Nguyen MD Work Phone: [facility] 05-04-2023 11:12-0400 Systolic blood pressure 102 mm[Hg] Dung Nguyen MD Work Phone: [facility] 04-06-2023 11:06-0400 Body weight 115.67 kg Dung Nguyen MD Work Phone: [facility] 04-06-2023 11:06-0400 Diastolic blood pressure 60 mm[Hg] Dung Nguyen MD Work Phone: [facility] 04-06-2023 11:06-0400 Heart rate 74 /min Dung Nguyen MD Work Phone: [facility] 04-06-2023 11:06-0400 Respiratory rate 16 /min Dung Nguyen MD Work Phone: [facility] 04-06-2023 11:06-0400 SaO2% (BldA) [Mass fraction] 97 % Dung Nguyen MD Work Phone: [facility] 04-06-2023 11:06-0400 Systolic blood pressure 102 mm[Hg] Dung Nguyen MD Work Phone: [facility] 04-04-2023 13:40-0400 Body weight 115.21 kg Georgette Bruce MD Work Phone: [facility] 04-04-2023 13:40-0400 Diastolic blood pressure 68 mm[Hg] Georgette Bruce MD Work Phone: [facility] 04-04-2023 13:40-0400 Heart rate 81 /min Georgette Bruce MD Work Phone: [facility] 04-04-2023 13:40-0400 Systolic blood pressure 129 mm[Hg] Georgette Bruce MD Work Phone: [facility] 02-16-2023 11:14-0400 Body weight 114.31 kg Dung Nguyen MD Work Phone: [facility] 02-16-2023 11:14-0400 Diastolic blood pressure 60 mm[Hg] Dung Nguyen MD Work Phone: [facility] 02-16-2023 11:14-0400 Heart rate 68 /min Dung Nguyen MD Work Phone: [facility] 02-16-2023 11:14-0400 Respiratory rate 18 /min Dung Nguyen MD Work Phone: [facility] 02-16-2023 11:14-0400 SaO2% (BldA) [Mass fraction] 96 % Dung Nguyen MD Work Phone: [facility] 02-16-2023 11:14-0400 Systolic blood pressure 102 mm[Hg] Dung Nguyen MD Work Phone: [facility] 01-19-2023 09:55-0400 Body weight 112.04 kg Dung Nguyen MD Work Phone: [facility] 01-19-2023 09:55-0400 Diastolic blood pressure 70 mm[Hg] Dung Nguyen MD Work Phone: [facility] 01-19-2023 09:55-0400 Heart rate 59 /min Dung Nguyen MD Work Phone: [facility] 01-19-2023 09:55-0400 Respiratory rate 16 /min Dung Nguyen MD Work Phone: [facility] 01-19-2023 09:55-0400 SaO2% (BldA) [Mass fraction] 95 % Dung Nguyen MD Work Phone: [facility] 01-19-2023 09:55-0400 Systolic blood pressure 112 mm[Hg] Dung Nguyen MD Work Phone: [facility] 01-11-2023 10:48-0400 Body weight 117.39 kg Dung Nguyen MD Work Phone: [facility] 01-11-2023 10:48-0400 Diastolic blood pressure 58 mm[Hg] Dung Nguyen MD Work Phone: [facility] 01-11-2023 10:48-0400 Heart rate 66 /min Dung Nguyen MD Work Phone: [facility] 01-11-2023 10:48-0400 Respiratory rate 18 /min Dung Nguyen MD Work Phone: [facility] 01-11-2023 10:48-0400 SaO2% (BldA) [Mass fraction] 98 % Dung Nguyen MD Work Phone: [facility] 01-11-2023 10:48-0400 Systolic blood pressure 106 mm[Hg] Dung Nguyen MD Work Phone: [facility] 01-04-2023 11:20-0400 Body weight 117.75 kg Dung Nguyen MD Work Phone: [facility] 01-04-2023 11:20-0400 Diastolic blood pressure 68 mm[Hg] Dung Nguyen MD Work Phone: [facility] 01-04-2023 11:20-0400 Heart rate 62 /min Dung Nguyen MD Work Phone: [facility] 01-04-2023 11:20-0400 Respiratory rate 16 /min Dung Nguyen MD Work Phone: [facility] 01-04-2023 11:20-0400 SaO2% (BldA) [Mass fraction] 97 % Dung Nguyen MD Work Phone: [facility] 01-04-2023 11:20-0400 Systolic blood pressure 104 mm[Hg] Dung Nguyen MD Work Phone: [facility] 11-05-2022 11:34-0500 Body temperature 97 [degF] Ricco Fernandez Jr., MD Work Phone: [facility] 11-05-2022 11:34-0500 Body weight 113.85 kg Ricco Fernandez Jr., MD Work Phone: [facility] 11-05-2022 11:34-0500 Diastolic blood pressure 58 mm[Hg] Ricco Fernandez Jr., MD Work Phone: [facility] 11-05-2022 11:34-0500 Heart rate 74 /min Ricco Fernandez Jr., MD Work Phone: [facility] 11-05-2022 11:34-0500 Respiratory rate 22 /min Ricco Fernandez Jr., MD Work Phone: [facility] 11-05-2022 11:34-0500 SaO2% (BldA) [Mass fraction] 97 % Ricco Fernandez Jr., MD Work Phone: [facility] 11-05-2022 11:34-0500 Systolic blood pressure 118 mm[Hg] Ricco Fernandez Jr., MD Work Phone: [facility] 10-06-2022 11:39-0500 Body weight 115.21 kg Dung Nguyen MD Work Phone: [facility] 10-06-2022 11:39-0500 Diastolic blood pressure 58 mm[Hg] Dung Nguyen MD Work Phone: [facility] 10-06-2022 11:39-0500 Heart rate 61 /min Dung Nguyen MD Work Phone: [facility] 10-06-2022 11:39-0500 Respiratory rate 20 /min Dung Nguyen MD Work Phone: [facility] 10-06-2022 11:39-0500 SaO2% (BldA) [Mass fraction] 98 % Dung Nguyen MD Work Phone: [facility] 10-06-2022 11:39-0500 Systolic blood pressure 100 mm[Hg] Dung Nguyen MD Work Phone: [facility] 09-28-2022 10:29-0500 Body temperature 97.39 [degF] Brooke Gambino APRN.PRODUCTION SUPPORT MANAGER Work Phone: [facility] 09-28-2022 10:29-0500 Body weight 113.67 kg Brooke Gambino APRN.PRODUCTION SUPPORT MANAGER Work Phone: [facility] 12-20-2022 10:29-0500 Diastolic blood pressure 70 mm[Hg] Brooke Podlogar GRAIN CLEANER AND TRANSFER OPERATOR.PRODUCTION SUPPORT MANAGER Work Phone: [facility] 09-28-2022 10:29-0500 Heart rate 74 /min Brooke Podlogar GRAIN CLEANER AND TRANSFER OPERATOR.PRODUCTION SUPPORT MANAGER Work Phone: [facility] 09-28-2022 10:29-0500 Respiratory rate 20 /min Brooke Podlogar GRAIN CLEANER AND TRANSFER OPERATOR.PRODUCTION SUPPORT MANAGER Work Phone: [facility] 09-28-2022 10:29-0500 SaO2% (BldA) [Mass fraction] 94 % Brooke Podlogar GRAIN CLEANER AND TRANSFER OPERATOR.PRODUCTION SUPPORT MANAGER Work Phone: [facility] 09-28-2022 10:29-0500 Systolic blood pressure 116 mm[Hg] Brooke Podlogar GRAIN CLEANER AND TRANSFER OPERATOR.PRODUCTION SUPPORT MANAGER Work Phone: [facility] 09-21-2022 10:22-0500 Body temperature 97.9 [degF] Dung Nguyen MD Work Phone: [facility] 09-21-2022 10:22-0500 Body weight 113.31 kg Dung Nguyen MD Work Phone: [facility] 09-21-2022 10:22-0500 Diastolic blood pressure 66 mm[Hg] Dung Nguyen MD Work Phone: [facility] 09-21-2022 10:22-0500 Heart rate 69 /min Dung Ngyuen MD Work Phone: [facility] 09-21-2022 10:22-0500 Respiratory rate 18 /min Dung Nguyen MD Work Phone: [facility] 09-21-2022 10:22-0500 SaO2% (BldA) [Mass fraction] 97 % Dung Nguyen MD Work Phone: [facility] 09-21-2022 10:22-0500 Systolic blood pressure 100 mm[Hg] Dung Nguyen MD Work Phone: [facility] 06-25-2022 10:37-0400 Body weight 112.76 kg Brooke Podlogar GRAIN CLEANER AND TRANSFER OPERATOR.PRODUCTION SUPPORT MANAGER Work Phone: [facility] 06-25-2022 10:37-0400 Diastolic blood pressure 76 mm[Hg] Brooke Podlogar GRAIN CLEANER AND TRANSFER OPERATOR.PRODUCTION SUPPORT MANAGER Work Phone: [facility] 06-25-2022 10:37-0400 Heart rate 62 /min Brooke Podlogar GRAIN CLEANER AND TRANSFER OPERATOR.PRODUCTION SUPPORT MANAGER Work Phone: [facility] 06-25-2022 10:37-0400 Respiratory rate 16 /min Brooke Podlogar GRAIN CLEANER AND TRANSFER OPERATOR.PRODUCTION SUPPORT MANAGER Work Phone: [facility] 06-25-2022 10:37-0400 SaO2% (BldA) [Mass fraction] 97 % Brooke Podlogar GRAIN CLEANER AND TRANSFER OPERATOR.PRODUCTION SUPPORT MANAGER Work Phone: [facility] 06-25-2022 10:37-0400 Systolic blood pressure 110 mm[Hg] Brooke Podlogar GRAIN CLEANER AND TRANSFER OPERATOR.PRODUCTION SUPPORT MANAGER Work Phone: [facility] 05-28-2022 10:38-0400 Body weight 114.85 kg Dung Nguyen MD Work Phone: [facility] 05-28-2022 10:38-0400 Diastolic blood pressure 60 mm[Hg] Dung Nguyen MD Work Phone: [facility] 05-28-2022 10:38-0400 Heart rate 60 /min Dung Nguyen MD Work Phone: [facility] 05-28-2022 10:38-0400 Respiratory rate 16 /min Dung Nguyen MD Work Phone: [facility] 05-28-2022 10:38-0400 SaO2% (BldA) [Mass fraction] 94 % Dung Nguyen MD Work Phone: [facility] 05-28-2022 10:38-0400 Systolic blood pressure 110 mm[Hg] Dung Nguyen MD Work Phone: [facility] 05-24-2022 10:44-0400 Body temperature 97.59 [degF] Ricco Fernandez Jr., MD Work Phone: [facility] 05-24-2022 10:44-0400 Body weight 113.76 kg Ricco Fernandez Jr., MD Work Phone: [facility] 05-24-2022 10:44-0400 Diastolic blood pressure 62 mm[Hg] Ricco Fernandez Jr., MD Work Phone: [facility] 05-24-2022 10:44-0400 Heart rate 62 /min Ricco Fernandez Jr., MD Work Phone: [facility] 05-24-2022 10:44-0400 Respiratory rate 20 /min Ricco Fernandez Jr., MD Work Phone: [facility] 05-24-2022 10:44-0400 SaO2% (BldA) [Mass fraction] 98 % Ricco Fernandez Jr., MD Work Phone: [facility] 05-24-2022 10:44-0400 Systolic blood pressure 112 mm[Hg] Ricco Fernandez Jr., MD Work Phone: [facility] 05-10-2022 10:19-0400 Body weight 114.58 kg Dung Nguyen MD Work Phone: [facility] 05-10-2022 10:19-0400 Diastolic blood pressure 60 mm[Hg] Dung Nguyen MD Work Phone: [facility] 05-10-2022 10:19-0400 Heart rate 50 /min Dung Nguyen MD Work Phone: [facility] 05-10-2022 10:19-0400 Respiratory rate 16 /min Dung Nguyen MD Work Phone: [facility] 05-10-2022 10:19-0400 SaO2% (BldA) [Mass fraction] 97 % Dung Nguyen MD Work Phone: [facility] 05-10-2022 10:19-0400 Systolic blood pressure 122 mm[Hg] Dung Nguyen MD Work Phone: [facility] 04-09-2022 14:11-0400 Body weight 118.12 kg Brooke Podlogar GRAIN CLEANER AND TRANSFER OPERATOR.PRODUCTION SUPPORT MANAGER Work Phone: [facility] 04-09-2022 14:11-0400 Diastolic blood pressure 68 mm[Hg] Brooke Podlogar GRAIN CLEANER AND TRANSFER OPERATOR.PRODUCTION SUPPORT MANAGER Work Phone: [facility] 04-09-2022 14:11-0400 Heart rate 79 /min Brooke Podlogar GRAIN CLEANER AND TRANSFER OPERATOR.PRODUCTION SUPPORT MANAGER Work Phone: [facility] 04-09-2022 14:11-0400 Respiratory rate 18 /min Brooke Podlogar GRAIN CLEANER AND TRANSFER OPERATOR.PRODUCTION SUPPORT MANAGER Work Phone: [facility] 04-09-2022 14:11-0400 SaO2% (BldA) [Mass fraction] 96 % Brooke Podlogar GRAIN CLEANER AND TRANSFER OPERATOR.PRODUCTION SUPPORT MANAGER Work Phone: [facility] 04-09-2022 14:11-0400 Systolic blood pressure 122 mm[Hg] Brooke Podlogar GRAIN CLEANER AND TRANSFER OPERATOR.PRODUCTION SUPPORT MANAGER Work Phone: [facility] 03-17-2022 15:02-0400 Body weight 112.04 kg Dung Nguyen MD Work Phone: [facility] 03-17-2022 15:02-0400 Diastolic blood pressure 78 mm[Hg] Dung Nguyen MD Work Phone: [facility] 03-17-2022 15:02-0400 Heart rate 70 /min Dung Nguyen MD Work Phone: [facility] 03-17-2022 15:02-0400 Respiratory rate 12 /min Dung Nguyen MD Work Phone: [facility] 03-17-2022 15:02-0400 Systolic blood pressure 124 mm[Hg] Dung Nguyen MD Work Phone: [facility] 02-24-2022 10:58-0400 Body temperature 99.19 [degF] Dung Nguyen MD Work Phone: [facility] 02-24-2022 10:58-0400 Body weight 118.12 kg Dung Nguyen MD Work Phone: [facility] 02-24-2022 10:58-0400 Diastolic blood pressure 64 mm[Hg] Dung Nguyen MD Work Phone: [facility] 02-24-2022 10:58-0400 Heart rate 72 /min Dung Nguyen MD Work Phone: [facility] 02-24-2022 10:58-0400 Respiratory rate 20 /min Dung Nguyen MD Work Phone: [facility] 02-24-2022 10:58-0400 Systolic blood pressure 114 mm[Hg] Dung Nguyen MD Work Phone: [facility] 01-22-2022 09:27-0400 Body temperature 98.4 [degF] Dung Nguyen MD Work Phone: [facility] 01-22-2022 09:27-0400 Body weight 117.94 kg Dung Nguyen MD Work Phone: [facility] 01-22-2022 09:27-0400 Diastolic blood pressure 58 mm[Hg] Dung Nguyen MD Work Phone: [facility] 01-22-2022 09:27-0400 Heart rate 78 /min Dung Nguyen MD Work Phone: [facility] 01-22-2022 09:27-0400 Respiratory rate 20 /min Dung Nguyen MD Work Phone: [facility] 01-22-2022 09:27-0400 SaO2% (BldA) [Mass fraction] 96 % Dung Nguyen MD Work Phone: [facility] 01-22-2022 09:27-0400 Systolic blood pressure 116 mm[Hg] Dung Nguyen MD Work Phone: [facility] 01-07-2022 13:41-0400 Diastolic blood pressure 68 mm[Hg] Gwendolyn Quigley APRN.CNP Work Phone: [facility] 01-07-2022 13:41-0400 Heart rate 82 /min Gwendolyn Quigley GRAIN CLEANER AND TRANSFER OPERATOR.PRODUCTION SUPPORT MANAGER Work Phone: [facility] 01-07-2022 13:41-0400 Respiratory rate 20 /min Gwendolyn Quigley GRAIN CLEANER AND TRANSFER OPERATOR.PRODUCTION SUPPORT MANAGER Work Phone: [facility] 01-07-2022 13:41-0400 SaO2% (BldA) [Mass fraction] 96 % Gwendolyn Quigley GRAIN CLEANER AND TRANSFER OPERATOR.PRODUCTION SUPPORT MANAGER Work Phone: [facility] 01-07-2022 13:41-0400 Systolic blood pressure 132 mm[Hg] Gwnedolyn Quigley GRAIN CLEANER AND TRANSFER OPERATOR.PRODUCTION SUPPORT MANAGER Work Phone: [facility] Encounters Encounter Date Encounter Type Care Provider Facility Start: 11-25-2023 Telephone encounter Paulo Nguyen MD Work Phone: [facility] [place] Procedures Date Procedure Procedure Detail Performing Clinician Start: 07-13-2023 Noninvasive ear/puls e oximetry multiple deter Nicki Euceda MD Work Phone: Start: 07-13-2023 Brncdilat rspse spmt ry pre&post-brncdilat admn Nicki Euceda MD Work Phone: Start: 07-01-2023 Ct abdomen & pelvis w/contrast material Dung Nguyen MD Work Phone: Start: 07-01-2023 Ct thorax w/contrast material Dung Nguyen MD Work Phone: Start: 06-29-2023 Mri spinal canal lum bar w/o & w/contr matrl Dung Nguyen MD Work Phone: Start: 06-21-2023 Mri spinal canal lum bar w/o contrast material Dung Nguyen MD Work Phone: Start: 05-17-2023 Nerve conduction vianey dies 5-6 studies Dung Nguyen MD Work Phone: Start: 06-25-2022 INFLUENZA SEASONAL QUADRIVALENT HIGH DOSE AGE 65+ Brooke Gambino GRAIN CLEANER AND TRANSFER OPERATOR.PRODUCTION SUPPORT MANAGER Work Phone: Start: 05-19-2022 Radex toe minimum 2 views Shi Newberry Work Phone: Start: 12-31-2021 Radex spine lumbosac ral minimum 4 views Larissa Friend PA-C Work Phone: Start: 12-31-2021 Mri brain brain stem w/o contrast material Dung Nguyen MD Work Phone: Start: 08-15-2021 Adult depression scr eening assessment [facility] Work Phone: Plan of Treatment Date Care Activity Detail Author Start: 03-19-2030 Urine microalbumin profile [facility] Start: 11-15-2024 Annual PCP Team Chronic Disease Visit Annual PCP Team Chronic Disease Visit [facility] Start: 11-15-2024 BP Controlled (<130/80) BP Controlled (<130/80) [facility] Start: 11-15-2024 Creatinine measurement Serum Creatinine [facility] Start: 11-15-2024 Hepatitis B surface antibody level LDL Cholesterol [facility] Start: 09-21-2024 Glaucoma screening Dilated Retinal Exam [facility] Start: 08-16-2024 Annual PCP Team Chronic Disease Visit Annual PCP Team Chronic Disease Visit [facility] Start: 08-16-2024 BP Controlled (<130/80) BP Controlled (<130/80) [facility] Start: 08-16-2024 Hepatitis B screening Urine Albumin:Creatinine Ratio [facility] Start: 08-13-2024 Complete blood count Hemoglobin/Hematocrit [facility] Start: 08-13-2024 Creatinine measurement Serum Creatinine [facility] Start: 08-13-2024 Hemoglobin/Hematocrit Hemoglobin/Hematocrit [facility] Start: 08-13-2024 Hepatitis B surface antibody level LDL Cholesterol [facility] Start: 08-13-2024 Serum Creatinine Serum Creatinine [facility] Start: 08-09-2024 BP Controlled (<130/80) BP Controlled (<130/80) [facility] Start: 08-03-2024 BP Controlled (<130/80) BP Controlled (<130/80) [facility] Start: 07-13-2024 BP Controlled (<130/80) BP Controlled (<130/80) [facility] Start: 07-05-2024 BP Controlled (<130/80) BP Controlled (<130/80) [facility] Start: 06-30-2024 Serum Creatinine Serum Creatinine [facility] Start: 06-03-2024 3 comp foot exam completed DIABETIC FOOT EXAM [facility] Start: 06-03-2024 Diabetic foot examination Diabetic Foot Exam [facility] Start: 05-15-2024 Hemoglobin A1c measurement HbA1C [facility] Start: 05-04-2024 ANNUAL PCP TEAM CHRONIC DISEASE VISIT ANNUAL PCP TEAM CHRONIC DISEASE VISIT [facility] Start: 05-04-2024 BP CONTROLLED (<130/80) BP CONTROLLED (<130/80) [facility] Start: 04-06-2024 ANNUAL PCP TEAM CHRONIC DISEASE VISIT ANNUAL PCP TEAM CHRONIC DISEASE VISIT [facility] Start: 04-06-2024 BP CONTROLLED (<130/80) BP CONTROLLED (<130/80) [facility] Start: 04-06-2024 SERUM CREATININE SERUM CREATININE [facility] Start: 04-04-2024 BP CONTROLLED (<130/80) BP CONTROLLED (<130/80) [facility] Start: 2024 ANNUAL PCP TEAM CHRONIC DISEASE VISIT ANNUAL PCP TEAM CHRONIC DISEASE VISIT [facility] Start: 2024 BP CONTROLLED (<130/80) BP CONTROLLED (<130/80) [facility] Start: 02-11-2024 Hemoglobin A1c measurement HbA1C [facility] Start: 02-11-2024 Hemoglobin A1c/Hemoglobin.total in Blood HbA1C [facility] Start: 02-01-2024 ANNUAL PCP TEAM CHRONIC DISEASE VISIT ANNUAL PCP TEAM CHRONIC DISEASE VISIT [facility] Start: 02-01-2024 BP CONTROLLED (<130/80) BP CONTROLLED (<130/80) [facility] Start: 02-01-2024 HEMOGLOBIN/HEMATOCRIT HEMOGLOBIN/HEMATOCRIT [facility] Start: 02-01-2024 SERUM CREATININE SERUM CREATININE [facility] Start: 01-20-2024 ANNUAL PCP TEAM CHRONIC DISEASE VISIT ANNUAL PCP TEAM CHRONIC DISEASE VISIT [facility] Start: 01-20-2024 BP CONTROLLED (<130/80) BP CONTROLLED (<130/80) [facility] Start: 01-20-2024 SERUM CREATININE SERUM CREATININE [facility] Start: 01-18-2024 End: 08-17-2024 Mri spinal canal lumbar w/o & w/contr matrl MRI LUMBAR SPINE WO/W IVCON Radiology Routine Malignant neoplasm metastatic to bone (HCC) Disorder of bone Expected: 01/18/2024, Expires: 08/17/2024 [facility] Work Phone: Immunizations Immunization Date Immunization Notes Care Provider Piero chu 06-24-2023 influenza (HD-IIV4) vaccine, age 65+ yr, high dose, quadrivalent, PF (FLUZONE HIGH-DOSE) Pulm Wstr Work Phone: [facility] Work Phone: 06-24-2023 respiratory syncytia l virus (RSV) vaccine, bivalent (ABRYSVO) Dung Nguyen MD Work Phone: [facility] 06-25-2022 influenza, high-dose , quadrivalent vaccine (FLUZONE HIGH DOSE QUADRIVALENT) Brooke Gambino GRAIN CLEANER AND TRANSFER OPERATOR.PRODUCTION SUPPORT MANAGER Work Phone: [facility] 06-25-2022 influenza virus vaccine, unspecified formulation Dung Nguyen MD Work Phone: [facility] 05-01-2022 zoster vaccine recombinant Dung Nguyen MD Work Phone: [facility] Work Phone: 03-01-2022 zoster vaccine recombinant Dung Nguyen MD Work Phone: [facility] Work Phone: 02-18-2022 COVID-19 vaccine, fu ll dose (MODERNA) Chari Ochoa RN Work Phone: [facility] Work Phone: 06-24-2021 influenza, seasonal, injectable, preservative free Dung Nguyen MD Work Phone: [facility] Work Phone: 06-22-2021 influenza, high-dose , quadrivalent vaccine (FLUZONE HIGH DOSE QUADRIVALENT) [employer] Work Phone: [facility] 11-04-2020 COVID-19 vaccine, fu ll dose (MODERNA) [employer] Work Phone: [facility] 07-03-2020 influenza, high-dose , quadrivalent vaccine (FLUZONE HIGH DOSE QUADRIVALENT) [employer] Work Phone: [facility] 03-19-2020 tetanus toxoid, redu frank diphtheria toxoid, and acellular pertussis vaccine, adsorbed [employer] Work Phone: [facility] 07-17-2019 influenza, high dose seasonal, preservative-free [employer] [employer] Work Phone: [facility] 06-30-2018 influenza, high dose seasonal, preservative-free [employer] Work Phone: [facility] 06-30-2018 pneumococcal conjuga te vaccine, 13 valent [facility] [employer] Work Phone: [facility] 06-30-2017 influenza, seasonal, injectable [facility] [employer] Work Phone: [facility] 06-14-2016 influenza, seasonal, injectable [facility] Work Phone: [facility] 06-25-2015 influenza, seasonal, injectable [employer] Work Phone: [facility] 02-27-2015 pneumococcal conjuga te vaccine, 13 valent [facility] [employer] Work Phone: [facility] 06-19-2014 influenza, seasonal, injectable [employer] Work Phone: [facility] 06-19-2014 pneumococcal polysaccharide vaccine, 23 valent [facility] [employer] Work Phone: [facility] 03-28-2014 zoster vaccine, live [employer] [employer] Work Phone: [facility] Payers Date Payer Category Payer Private Health Insurance [facility] AARP SUPPLEMENT [id number] 2017-Present [phone] [address] [place] [address] Indemnity [id number] 2017 Private Health Insurance [facility] AARP SUPPLEMENT [id number] 2017-Present [phone] [address] [place] [address] Indemnity [id number] 2017 Unknown [id number] 2008 Medicare MEDICARE MEDICAR E A AND B [id number] 2008-Present [phone] [place] [address] Medicare [id number] 2008 Medicare MEDICARE MEDICAR E A AND B [id number] 2008-Present [phone] [place] [address] Medicare [id number] 2008 Medicare [id number] Social History Date Type Detail Facility Start: 03-30-2018 End: 07-05-2023 Tobacco smoking status NHIS Ex-smoker [facility] Start: 03-30-2018 End: 07-05-2023 Tobacco use and exposure Smokeless tobacco non-user [facility] Start: 12-28-2021 End: 11-15-2023 Alcohol intake Current non-drinker of alcohol (finding) [facility] [facility] Start: 08-23-2018 End: 08-15-2021 History SDOH Alcohol Frequency 1 [facility] Start: 09-06-2020 History SDOH Alcohol Std Drinks 98 [facility] Start: 03-30-2018 History SDOH Alcohol Comment rare wine use [facility] Start: 09-06-2020 History SDOH Social Connections Phone 5 [facility] Start: 12-18-2019 End: 08-15-2021 History SDOH Social Connections Membership 2 [facility] Start: 08-23-2018 End: 09-06-2020 History SDOH Social Connections Living 3 [facility] Start: 09-06-2020 History SDOH Physica l Activity DPW 0 [facility] Start: 02-05-2020 History SDOH Financial 4 [facility] Start: 12-18-2019 Education 12 [facility] Start: 03-30-2018 End: 05-19-2022 Tobacco Comment social cigar years ago [facility] Start: 1945 Sex Assigned At Male C [facility] Work Phone: Start: 12-18-2021 End: 08-19-2022 Exposure to SARS-CoV-2 (event) Not sure [facility] History of tobacco use Current smoker [facility] Start: 09-06-2020 End: 02-16-2023 History of Social function [facility] Start: 09-06-2020 End: 02-16-2023 Social connection and isolation [facility] How often do you get together with friends or relatives? Patient refused [facility] How hard is it for y ou to pay for the very basics like food, housing, medical care, and heating Not very hard [facility] Work Phone: Do you feel stress - tense, restless, nervous, or anxious, or unable to sleep at night because your mind is troubled all the time - these days [OSQ] To some extent [facility] (I/We) worried baduilio er (my/our) food would run out before (I/we) got money to buy more. Never true [facility] Work Phone: In the past 12 month s, was there a time when you were not able to pay the mortgage or rent on time? No [facility] Start: 02-07-2020 Gender identity Identifies as male gender (finding) [facility] Work Phone: Start: 02-07-2020 Sexual orientation Heterosexual (maria r millan) [facility] Work Phone: Start: 07-05-2023 Tobacco Comment cigars years a go, quit 40 years ago 07/05/23 [facility] Medical Equipment Procedure Code Equipment Code Equipment Origin al Text Equipment Identifier Dates Start: 12-19-2019 Goals Date Patient Goal Desired Activity /State Personal health goal Clinical Notes 06-30-2018 to 11-25-2023 Telephone Encounter - Baylee Marion RN - 11/25/2023 11:37 AM ESTTelephone Encounter - Kobi Lipscomb RN - 11/24/2023 1:00 PM ESTTelephone Encounter - Ro Allen LPN - 11/22/2023 4:27 PM EST Note Date & Type Note Facility 11-25-2023 Miscellaneous Notes Dexter Mcneil [facility] called in and reports Pt and family do not know about Pts Namenda and if he is supposed to be taking it. I let her know it was just filled 11/08/23 and sent to [facility] in [place]. She said she would tell his family to go pick it up. documented in this encounter [facility] 11-24-2023 Miscellaneous Notes Patient has been identified by name and date of : Yes, Provider Wendy Date 11-24-23 Time 1:01 pm Spouse phones for refill(s): Requested Prescriptions Pending Prescriptions Disp Refills DULoxetine (CYMBALTA) 60 mg capsule 90 capsule 1 Sig: Take 1 capsule by mouth once daily. Date of last office visit in primary care: 11/15/2023 Date of next office visit in primary care: 02/15/2024 Please advise. Thank you. Kobi Lipscomb RN. documented in this encounter [facility] 11-22-2023 Miscellaneous Notes Phoned Dexter Mcneil with [facility] and updated her with PCP's message. She voiced understanding. Metolazone was stopped by cardiology last year. He should be on lasix 40 mg BID as directed by their office. Med list updated. Dexter Mcneil with [facility] called in and reports that on Pts last OV note it lists the Zaroxolyn as a current medication for the Pt. I told her on the med list it was last filled 02/16/23 through 08/03/23 and it has . She said they go by the medication list to fill the Pts pills and needs to know if the Pt is supposed to be taking this. She said they told her he isn't taking it. Please call and advise and update med list. documented in this encounter [facility] 11-22-2023 Note [facility] 11-22-2023 History of Presen t illness Narrative Images from the original note were not included. Patient was approved with [employer] for medication(s) Basaglar Kwikpen units-100, Humalog Kwikpen units-100 & Trulicity 0.75mg through 10/09/2024. Patient [facility] ID's are : Basaglar : [id number] Humalog : [id number] Trulicity : [id number] Below are faxes sent to PAP Team alerting of patient approval in program through 2023. Will forward approval letters to patient via My Chart for patient records. Charmaine Cervantes [facility] E-Mail : [email or web address] Phone : [phone] Fax : [phone] Faxed completed application to [employer] on 11/21/2023. documented in this encounter [facility] 11-21-2023 Note HNO ID: [id number] Author: ?, ?, ? Service: ? Author Type: ? Type: Progress Notes Filed: 11/22/2023 10:56 Note Text: Faxed completed application to [employer] on 11/21/2023. [facility] 11-21-2023 Note [facility] 11-21-2023 Note [facility] 11-21-2023 History of Presen t illness Narrative Primary Care Pharmacy Visit CC (Reason for Consult): Diabetes (E11.42, Z79.4) Type 2 diabetes mellitus with diabetic polyneuropathy, with long-term current use of insulin ([facility]) (primary encounter diagnosis) Goal: A1c < 8% Last Collaborating Provider Visit: 11/15/2023 Fredrick Flores is a 78 year old male presenting for follow up visit telephone call. Patient consents to pharmacy collaborative practice agreement. Interim Events: 08/16: PCP switched pravastatin to atorvastatin; insulin increased 08/29: PAP re-enrollment initiated, follow-up scheduled for November since patient was doing well 09/21: Patient had no issues, appointment to check on PAP status . (Applications being reviewed at [employer] as of 10/31/202311/02: States BS all over the place depending on what he eats . Sometimes forgets to check before meals. Sometimes forgets to take his medication (missed a few days) Despite being in pill box near him 11/15: At PCP visit, patient had 12 hypoglycemic events in the past 30 days 11/16: [employer] rep states patient needed new application (not on file). Patient has 3 pens of Trulicity left. HPI: Patient does not endorse GI ADR with Trulicity, although his states he dry heaves occasionally. He has had times where his CGM notifies him he has low BG, usually around 11 AM before lunch. He did not note hypoglycemia symptoms, but his stated that he occasionally gets shaky. He does not have a big appetite, and has been skipping dinner, but snacks on grapes at bedtime leading to higher BG overnight. Differing responses, but it is believed that he uses 16 units of Humalog at breakfast 5 times weekly and uses 18 units with lunch daily. Current DM Medications: Dulaglutide (Trulicity) 0.75mg weekly Insulin glargine (Basaglar) 38 units BID Insulin lispro (Humalog) 16-18-18 units TIDAC if sugar >80 (does not usually eat dinner or inject lispro at dinnertime) Past DM medications: Metformin Glimepiride CGM Data At 11/15/2023 PCP visit: Average sugar in the last 30 days: 151 12am to 6am: 119, 6am to 12pm: 135, 12pm to 6pm: 164, 6pm to 12am: 191 Had a total of 12 hypoglycemic events in the last 30 days Patient reports BG 79-90 mg/dL in AM Date range Overall AVG 12a-6a 6a-12p 12p-6p 6p-12a TIME IN RANGE 7 day (%) 7 day 139 ABOVE 17 14 day 142 IN (80-180) 82 30 day 145 BELOW 1 90 day Preventative Medications: On GRETEL/ARB: Yes On Statin: Yes ROS: Patient denies symptoms of hypoglycemia (sweating, anxiety, palpitations, hunger, and tremor) ( reports shakiness) Patient denies potential medication adverse effects DIET/EXERCISE/SOCIAL Hx: Patient reports eating grapes at bedtime Has less of an appetite Notes very little physical activity MEDICATIONS: Pill bottles are not present. Adherence: denies missed doses. Pharmacy: [facility] [address] [place] [id number] [id number] [phone] [facility] Rx coverage: Payor: MEDICARE / Plan: MEDICARE A AND B / Product Type: Medicare / Medications affordable? Yes; Trulicity and insulins through [employer], waiting for [employer] application to finish processing Diabetes Supplies: Yes, FL2 Organization system: Past medical history reviewed. ACTIVE PROBLEM LIST Controlled Type 2 Diabetes Mellitus With Stage 3 Chronic Kidney Disease, With Long-Term Current Use of Insulin ([facility]) Hypertension Hyperlipidemia Osteoarthritis Chronic Lower Back Pain Bph (Benign Prostatic Hyperplasia) Bilateral Lower Extremity Edema [place] (Obstructive Sleep Apnea) Chronic Kidney Disease (Ckd), Stage Iii (Moderate) (Hcc) Hypertensive Heart Disease With Stage 3 Chronic Kidney Disease (Hcc) Type 2 Diabetes Mellitus With Diabetic Polyneuropathy, With Long-Term Current Use of Insulin ([facility]) Atherosclerotic Heart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 your legs. Do not self-treat your corns, calluses, or other foot problems. Go to your health care provider or set up person to treat these conditions. documented in this encounterGrand [facility] Miscellaneous Notes* Telephone Encounter - Ro Allen LPN - 01/04/2022 5:32 PM EDT A[facility]EN 12/21/21 NOV 02/24/22 * Telephone Encounter - Angella Hutchison - 01/04/2022 9:01 AM EDT Patient has been identified by name and date of : Yes Pending Prescriptions Disp Refills CARVEDILOL 3.125 MG TABLET 180 tablet 1 Sig: Take 1 tablet by mouth twice daily with meals. LICO: No Patient is asking if the carvedilol should be 6.25 because of the Eliquis dosage is decreased. Patient asking for a confirmation of the dosage and for the refill to be processed. RX INSTRUCTIONS: Patient aware RX will be sent to pharmacy. No need to notify patient. Angella Hutchison documented in this encounterGrand Lake [facility]03-24-[facility] History of Present illness Narrative* RT Glen(R) - 12/31/2021 10:30 AM EDT Radiology Service Progress Note PATIENT NAME: Fredrick Flores DATE OF SERVICE: December 31, 2021 TIME: 10:04 AM PATIENT IDENTITY VERIFICATION COMPLETED USING TWO (2) IDENTIFIERS: Name and Date of confirmedby patient verbally. FALL SCREENING: Has the patient had 2 falls in the last year or 1 fall with injury or currently using an Ambulatory Assistive Device (Walker, Cane, Wheelchair, Crutches, etc.)? Yes, Patient High Riskfor Falls What interventions were put in place to prevent falls during this visit? Instructed Patient to Callfor Help if Needed, Offered Assistance with Transfers/Clothing, Instructed Patient to Remain Seated(Not on Exam Table) Until Exam, Increased Observations by Caregivers and Patient Refused Interventio ns/Assistance PATIENT GENDER DATA: Male PATIENT RELEVANT IMPLANT DATA REVIEWED: Not Applicable RADIOLOGY DEPARTMENT: General X-ray: Exam(s) Completed: Spine X-Ray(s): Lumbar AP / LAT / L5-S1 / FLEX-EXT PERIPHERAL IV DATA: Not applicable SIGNED BY: RT Glen(R) December 31, 2021 10:04 AM documented in this encounterGrand [facility]03-24-[facility]22 History of Present illness Narrative* RT Masha(R) - 12/31/2021 9:20 AM EDT Radiology Service Progress Note PATIENT NAME: Fredrick Flores DATE OF SERVICE: December 31, 2021 TIME: 9:21 AM PATIENT IDENTITY VERIFICATION COMPLETED USING TWO (2) IDENTIFIERS: Name and Date of confirmedby patient verbally. FALL SCREENING: Has the patient had 2 falls in the last year or 1 fall with injury or currently using an Ambulatory Assistive Device (Walker, Cane, Wheelchair, Crutches, etc.)? Yes, Patient High Riskfor Falls What interventions were put in place to prevent falls during this visit? Instructed Patient to Callfor Help if Needed, Offered Assistance with Transfers/Clothing, Instructed Patient to Remain Seated(Not on Exam Table) Until Exam and Increased Observations by Caregivers PATIENT GENDER DATA: Male PATIENT RELEVANT IMPLANT DATA REVIEWED: Yes RADIOLOGY DEPARTMENT: MR; Exam(s) Completed: Head: Routine Brain PERIPHERAL IV DATA: Not applicable SIGNED BY: RT Masha(R) December 31, 2021 9:21 AM documented in this encounterGrand [facility]03-23-2022 Miscellaneous Notes* Telephone Encounter - Brooke Gambino APRN.CNP - 12/30/2021 11:[address] Nguyen updated his med list but did not order it as the [facility] reports does not show his name asthe ordering physician. Brooke Gambino APRN.CNP * Telephone Encounter - Coty Jonas LPN - 12/30/2021 10:58 AM EDT Looking at RX history. Dr Nguyen sign for the last RX. Coty Jonas LPN * Telephone Encounter - Brooke Gambino APRN.CNP - 12/30/2021 10:34 AM EDT Please call patient and let him know he needs to request mail order for gabapentin from prescribingphysician. Dr. Nguyen has not been ordering this for him. Brooke Gambino APRN.CNP documented in this encounterGrand Lake [facility]12-30-2021 Miscellaneous Notes* Telephone Encounter - Dung Nguyen MD - 10/08/2021 11:41 AM EST Reviewed. * Telephone Encounter - Kobi Lipscomb RN - 10/08/2021 9:49 AM EST FYI: Hanh- OT- [facility] reporting OT POC: will see patient 1 x week for 1 week, then 2 x's week for 3weeks, for ADL's and strengthening. documented in this encounterGrand [facility]09-[facility] History of Past illness Narrative* Problem Noted Date Resolved Date Iron deficiency anemia 8 documented as of this encounter (statuses as of 01/01/2022) [address]21-2018 History of Past illness Narrative* Problem Noted Date Resolved Date Iron deficiency anemia 8 documented as of this encounter (statuses as of 01/04/2022) [address]21-2018 History of Past illness Narrative* Problem Noted Date Resolved Date Iron deficiency anemia 8 documented as of this encounter (statuses as of 01/05/2022) [address]21-2018 History of Past illness Narrative* Problem Noted Date Resolved Date Iron deficiency anemia 8 documented as of this encounter (statuses as of 01/07/2022) [address]21-2018 History of Past illness Narrative* Problem Noted Date Resolved Date Iron deficiency anemia 8 documented as of this encounter (statuses as of 01/11/2022) [address]21-2018 History of Past illness Narrative* Problem Noted Date Resolved Date Iron deficiency anemia 8 documented as of this encounter (statuses as of 01/19/2022) [address]21-2018 History of Past illness Narrative* Problem Noted Date Resolved Date Iron deficiency anemia 8 documented as of this encounter (statuses as of 01/22/2022) [address]21-2018 History of Past illness Narrative* Problem Noted Date Resolved Date Iron deficiency anemia 8 documented as of this encounter (statuses as of 01/25/2022) [address]21-2018 History of Past illness Narrative* Problem Noted Date Resolved Date Iron deficiency anemia 8 documented as of this encounter (statuses as of 01/26/2022) [address]21-2018 History of Past illness Narrative* Problem Noted Date Resolved Date Iron deficiency anemia 8 documented as of this encounter (statuses as of 02/01/2022) [address]21-2018 History of Past illness Narrative* Problem Noted Date Resolved Date Iron deficiency anemia 8 documented as of this encounter (statuses as of 02/03/2022) [address]21-2018 History of Past illness Narrative* Problem Noted Date Resolved Date Iron deficiency anemia 8 documented as of this encounter (statuses as of 02/08/2022) [address]21-2018 History of Past illness Narrative* Problem Noted Date Resolved Date Iron deficiency anemia 8 documented as of this encounter (statuses as of 02/22/2022) [address]21-2018 History of Past illness Narrative* Problem Noted Date Resolved Date Iron deficiency anemia 8 documented as of this encounter (statuses as of 02/23/2022) [address]21-2018 History of Past illness Narrative* Problem Noted Date Resolved Date Iron deficiency anemia 8 documented as of this encounter (statuses as of 02/24/2022) [address]21-2018 History of Past illness Narrative* Problem Noted Date Resolved Date Iron deficiency anemia 8 documented as of this encounter (statuses as of 02/25/2022) [address]21-2018 History of Past illness Narrative* Problem Noted Date Resolved Date Iron deficiency anemia 8 documented as of this encounter (statuses as of 03/03/2022) [address]21-2018 History of Past illness Narrative* Problem Noted Date Resolved Date Iron deficiency anemia 8 documented as of this encounter (statuses as of 03/20/2022) [address]21-2018 History of Past illness Narrative* Problem Noted Date Resolved Date Iron deficiency anemia 8 documented as of this encounter (statuses as of 03/22/2022) [address]21-2018 History of Past illness Narrative* Problem Noted Date Resolved Date Iron deficiency anemia 8 documented as of this encounter (statuses as of 03/25/2022) [address]21-2018 History of Past illness Narrative* Problem Noted Date Resolved Date Iron deficiency anemia 8 documented as of this encounter (statuses as of 03/26/2022) [address]21-2018 History of Past illness Narrative* Problem Noted Date Resolved Date Iron deficiency anemia 8 documented as of this encounter (statuses as of 04/02/2022) [address]21-2018 History of Past illness Narrative* Problem Noted Date Resolved Date Iron deficiency anemia 8 documented as of this encounter (statuses as of 04/09/2022) [address]21-2018 History of Past illness Narrative* Problem Noted Date Resolved Date Iron deficiency anemia 8 documented as of this encounter (statuses as of 04/09/2022) [address]21-2018 History of Past illness Narrative* Problem Noted Date Resolved Date Iron deficiency anemia 8 documented as of this encounter (statuses as of 04/09/2022) [address]21-2018 History of Past illness Narrative* Problem Noted Date Resolved Date Iron deficiency anemia 8 documented as of this encounter (statuses as of 04/13/2022) [address]21-2018 History of Past illness Narrative* Problem Noted Date Resolved Date Iron deficiency anemia 8 documented as of this encounter (statuses as of 04/15/2022) [address]21-2018 History of Past illness Narrative* Problem Noted Date Resolved Date Iron deficiency anemia 8 documented as of this encounter (statuses as of 04/15/2022) [address]21-2018 History of Past illness Narrative* Problem Noted Date Resolved Date Iron deficiency anemia 8 documented as of this encounter (statuses as of 04/26/2022) [address]21-2018 History of Past illness Narrative* Problem Noted Date Resolved Date Iron deficiency anemia 8 documented as of this encounter (statuses as of 04/28/2022) [facility] illness Narrative* Problem Noted Date Resolved Date Iron deficiency anemia 8 documented as of this encounter (statuses as of 04/30/2022) [address]21-2018 History of Past illness Narrative* Problem Noted Date Resolved Date Iron deficiency anemia 8 documented as of this encounter (statuses as of 05/11/2022) [address]21-2018 History of Past illness Narrative* Problem Noted Date Resolved Date Iron deficiency anemia 8 documented as of this encounter (statuses as of 05/11/2022) [address]21-2018 History of Past illness Narrative* Problem Noted Date Resolved Date Iron deficiency anemia 8 documented as of this encounter (statuses as of 05/13/2022) [address]21-2018 History of Past illness Narrative* Problem Noted Date Resolved Date Iron deficiency anemia 8 documented as of this encounter (statuses as of 05/19/2022) [address]21-2018 History of Past illness Narrative* Problem Noted Date Resolved Date Iron deficiency anemia 8 documented as of this encounter (statuses as of 05/20/2022) [address]21-2018 History of Past illness Narrative* Problem Noted Date Resolved Date Iron deficiency anemia 8 documented as of this encounter (statuses as of 05/24/2022) [address]21-2018 History of Past illness Narrative* Problem Noted Date Resolved Date Iron deficiency anemia 8 documented as of this encounter (statuses as of 05/25/2022) [address]21-2018 History of Past illness Narrative* Problem Noted Date Resolved Date Iron deficiency anemia 8 documented as of this encounter (statuses as of 05/26/2022) [address]21-2018 History of Past illness Narrative* Problem Noted Date Resolved Date Iron deficiency anemia 8 documented as of this encounter (statuses as of 05/28/2022) [address]21-2018 History of Past illness Narrative* Problem Noted Date Resolved Date Iron deficiency anemia 8 documented as of this encounter (statuses as of 05/28/2022) [facility] Narrative* Problem Noted Date Resolved Date Iron deficiency anemia 8 documented as of this encounter (statuses as of 06/01/2022) [facility] Narrative* Problem Noted Date Resolved Date Iron deficiency anemia 8 documented as of this encounter (statuses as of 06/02/2022) [address]21-2018 History of Past illness Narrative* Problem Noted Date Resolved Date Iron deficiency anemia 8 documented as of this encounter (statuses as of 06/09/2022) [address]21-2018 History of Past illness Narrative* Problem Noted Date Resolved Date Iron deficiency anemia 8 documented as of this encounter (statuses as of 06/17/2022) [address]21-2018 History of Past illness Narrative* Problem Noted Date Resolved Date Iron deficiency anemia 8 documented as of this encounter (statuses as of 06/23/2022) [address]21-2018 History of Past illness Narrative* Problem Noted Date Resolved Date Iron deficiency anemia 8 documented as of this encounter (statuses as of 06/24/2022) [address]21-2018 History of Past illness Narrative* Problem Noted Date Resolved Date Iron deficiency anemia 8 documented as of this encounter (statuses as of 06/25/2022) [address]21-2018 History of Past illness Narrative* Problem Noted Date Resolved Date Iron deficiency anemia 8 documented as of this encounter (statuses as of 07/06/2022) [address]21-2018 History of Past illness Narrative* Problem Noted Date Resolved Date Iron deficiency anemia 8 documented as of this encounter (statuses as of 07/08/2022) [address]21-2018 History of Past illness Narrative* Problem Noted Date Resolved Date Iron deficiency anemia 8 documented as of this encounter (statuses as of 07/12/2022) [address]21-2018 History of Past illness Narrative* Problem Noted Date Resolved Date Iron deficiency anemia 8 documented as of this encounter (statuses as of 07/20/2022) [place] [address]-21-2018 History of Past illness Narrative* Problem Noted Date Resolved Date Iron deficiency anemia 8 documented as of this encounter (statuses as of 07/22/2022) [address]21-2018 History of Past illness Narrative* Problem Noted Date Resolved Date Iron deficiency anemia 8 documented as of this encounter (statuses as of 07/26/2022) [address]21-2018 History of Past illness Narrative* Problem Noted Date Resolved Date Iron deficiency anemia 8 documented as of this encounter (statuses as of 08/05/2022) [address]21-2018 History of Past illness Narrative* Problem Noted Date Resolved Date Iron deficiency anemia 8 documented as of this encounter (statuses as of 08/13/2022) [address]21-2018 History of Past illness Narrative* Problem Noted Date Resolved Date Iron deficiency anemia 8 documented as of this encounter (statuses as of 08/18/2022) [address]21-2018 History of Past illness Narrative* Problem Noted Date Resolved Date Iron deficiency anemia 8 documented as of this encounter (statuses as of 08/19/2022) [address]21-2018 History of Past illness Narrative* Problem Noted Date Resolved Date Iron deficiency anemia 8 documented as of this encounter (statuses as of 08/26/2022) [address]21-2018 History of Past illness Narrative* Problem Noted Date Resolved Date Iron deficiency anemia 8 documented as of this encounter (statuses as of 09/01/2022) [address]21-2018 History of Past illness Narrative* Problem Noted Date Resolved Date Iron deficiency anemia 8 documented as of this encounter (statuses as of 09/06/2022) [address]21-2018 History of Past illness Narrative* Problem Noted Date Resolved Date Iron deficiency anemia 8 documented as of this encounter (statuses as of 09/16/2022) [address]21-2018 History of Past illness Narrative* Problem Noted Date Resolved Date Iron deficiency anemia 8 documented as of this encounter (statuses as of 09/20/2022) [address]21-2018 History of Past illness Narrative* Problem Noted Date Resolved Date Iron deficiency anemia 8 documented as of this encounter (statuses as of 09/21/2022) [address]21-2018 History of Past illness Narrative* Problem Noted Date Resolved Date Iron deficiency anemia 8 documented as of this encounter (statuses as of 09/22/2022) [address]21-2018 History of Past illness Narrative* Problem Noted Date Resolved Date Iron deficiency anemia 8 documented as of this encounter (statuses as of 09/28/2022) [address]21-2018 History of Past illness Narrative* Problem Noted Date Resolved Date Iron deficiency anemia 8 documented as of this encounter (statuses as of 10/01/2022) [address]21-2018 History of Past illness Narrative* Problem Noted Date Resolved Date Iron deficiency anemia 8 documented as of this encounter (statuses as of 10/13/2022) [address]21-2018 History of Past illness Narrative* Problem Noted Date Resolved Date Iron deficiency anemia 8 documented as of this encounter (statuses as of 10/13/2022) [address]21-2018 History of Past illness Narrative* Problem Noted Date Resolved Date Iron deficiency anemia 8 documented as of this encounter (statuses as of 10/21/2022) [address]21-2018 History of Past illness Narrative* Problem Noted Date Resolved Date Iron deficiency anemia 8 documented as of this encounter (statuses as of 11/05/2022) [address]21-2018 History of Past illness Narrative* Problem Noted Date Resolved Date Iron deficiency anemia 8 documented as of this encounter (statuses as of 11/11/2022) [address]21-2018 History of Past illness Narrative* Problem Noted Date Resolved Date Iron deficiency anemia 8 documented as of this encounter (statuses as of 11/15/2022) [address]21-2018 History of Past illness Narrative* Problem Noted Date Resolved Date Iron deficiency anemia 8 documented as of this encounter (statuses as of 11/25/2022) [address]21-2018 History of Past illness Narrative* Problem Noted Date Resolved Date Iron deficiency anemia 8 documented as of this encounter (statuses as of 11/30/2022) [address]21-2018 History of Past illness Narrative* Problem Noted Date Resolved Date Iron deficiency anemia 8 documented as of this encounter (statuses as of 11/30/2022) [address]21-2018 History of Past illness Narrative* Problem Noted Date Resolved Date Iron deficiency anemia 8 documented as of this encounter (statuses as of 12/03/2022) [address]21-2018 History of Past illness Narrative* Problem Noted Date Resolved Date Iron deficiency anemia 8 documented as of this encounter (statuses as of 01/04/2023) [address]21-2018 History of Past illness Narrative* Problem Noted Date Resolved Date Iron deficiency anemia 8 documented as of this encounter (statuses as of 01/12/2023) [address]21-2018 History of Past illness Narrative* Problem Noted Date Resolved Date Iron deficiency anemia 8 documented as of this encounter (statuses as of 01/12/2023) [facility] Past illness Narrative* Problem Noted Date Resolved Date Iron deficiency anemia 8 documented as of this encounter (statuses as of 01/13/2023) [address]21-2018 History of Past illness Narrative* Problem Noted Date Resolved Date Iron deficiency anemia 8 documented as of this encounter (statuses as of 01/13/2023) [address]21-2018 History of Past illness Narrative* Problem Noted Date Resolved Date Iron deficiency anemia 8 documented as of this encounter (statuses as of 01/14/2023) [address]21-2018 History of Past illness Narrative* Problem Noted Date Resolved Date Iron deficiency anemia 8 documented as of this encounter (statuses as of 01/16/2023) [address]21-2018 History of Past illness Narrative* Problem Noted Date Resolved Date Iron deficiency anemia 8 documented as of this encounter (statuses as of 01/18/2023) [address]21-2018 History of Past illness Narrative* Problem Noted Date Resolved Date Iron deficiency anemia 8 documented as of this encounter (statuses as of 01/18/2023) [facility] of Past illness Narrative* Problem Noted Date Resolved Date Iron deficiency anemia 8 documented as of this encounter (statuses as of 01/19/2023) [address]21-2018 History of Past illness Narrative* Problem Noted Date Resolved Date Iron deficiency anemia 8 documented as of this encounter (statuses as of 01/20/2023) [address]21-2018 History of Past illness Narrative* Problem Noted Date Resolved Date Iron deficiency anemia 8 documented as of this encounter (statuses as of 01/20/2023) [address]21-2018 History of Past illness Narrative* Problem Noted Date Resolved Date Iron deficiency anemia 8 documented as of this encounter (statuses as of 01/25/2023) [address]21-2018 History of Past illness Narrative* Problem Noted Date Resolved Date Iron deficiency anemia 8 documented as of this encounter (statuses as of 01/27/2023) [address]21-2018 History of Past illness Narrative* Problem Noted Date Resolved Date Iron deficiency anemia 8 documented as of this encounter (statuses as of 01/28/2023) [address]21-2018 History of Past illness Narrative* Problem Noted Date Resolved Date Iron deficiency anemia 8 documented as of this encounter (statuses as of 02/01/2023) [address]21-2018 History of Past illness Narrative* Problem Noted Date Resolved Date Iron deficiency anemia 8 documented as of this encounter (statuses as of 02/02/2023) [address]21-2018 History of Past illness Narrative* Problem Noted Date Resolved Date Iron deficiency anemia 8 documented as of this encounter (statuses as of 02/02/2023) [address]21-2018 History of Past illness Narrative* Problem Noted Date Resolved Date Iron deficiency anemia 8 documented as of this encounter (statuses as of 02/02/2023) [address]21-2018 History of Past illness Narrative* Problem Noted Date Resolved Date Iron deficiency anemia 8 documented as of this encounter (statuses as of 02/03/2023) [facility]2018 History of Past illness Narrative* Problem Noted Date Resolved Date Iron deficiency anemia 8 documented as of this encounter (statuses as of 02/06/2023) [facility] History of Past illness Narrative* Problem Noted Date Resolved Date Iron deficiency anemia 8 documented as of this encounter (statuses as of 02/07/2023) [address]21-2018 History of Past illness Narrative* Problem Noted Date Resolved Date Iron deficiency anemia 8 documented as of this encounter (statuses as of 02/10/2023) [address]21-2018 History of Past illness Narrative* Problem Noted Date Resolved Date Iron deficiency anemia 8 documented as of this encounter (statuses as of 2023) [address]21-2018 History of Past illness Narrative* Problem Noted Date Resolved Date Iron deficiency anemia 8 documented as of this encounter (statuses as of 02/18/2023) [address]21-2018 History of Past illness Narrative* Problem Noted Date Resolved Date Iron deficiency anemia 8 documented as of this encounter (statuses as of 02/21/2023) [address]21-2018 History of Past illness Narrative* Problem Noted Date Resolved Date Iron deficiency anemia 8 documented as of this encounter (statuses as of 02/22/2023) [address]21-2018 History of Past illness Narrative* Problem Noted Date Resolved Date Iron deficiency anemia 8 documented as of this encounter (statuses as of 03/24/2023) [address]21-2018 History of Past illness Narrative* Problem Noted Date Resolved Date Iron deficiency anemia 8 documented as of this encounter (statuses as of 03/30/2023) [address]21-2018 History of Past illness Narrative* Problem Noted Date Resolved Date Iron deficiency anemia 8 documented as of this encounter (statuses as of 04/05/2023) [address]21-2018 History of Past illness Narrative* Problem Noted Date Resolved Date Iron deficiency anemia 8 documented as of this encounter (statuses as of 04/06/2023) [facility]2018 History of Past illness Narrative* Problem Noted Date Resolved Date Iron deficiency anemia 8 documented as of this encounter (statuses as of 04/07/2023) [facility]09[facility]-2018 History of Past illness Narrative* Problem Noted Date Resolved Date Iron deficiency anemia 8 documented as of this encounter (statuses as of 04/07/2023) [facility] note* Diagnosis Degenerative disc disease, lumbar Degeneration of lumbar or lumbosacral intervertebral disc [facility] Diagnosis Visual hallucinations Psychophysical visual disturbances documented [facility] this [facility] Diagnosis Onychomycosis- Primary Dermatophytosis of nail Other diabetic neurological complication associated with type 2 diabetes mellitus (HCC) Pain in toe of left foot Pain in limb Pain in toe of right foot Pain in limb documented [facility] this encounter [facility]* Diagnosis Herpes zoster without complication- Primary Herpes zoster without mention of complication [facility] Diagnosis Herpes zoster with ophthalmic complication, unspecified herpes zoster eye disease- Primary Post herpetic neuralgia Herpes zoster with other nervous system complications Skin-picking disorder documented [facility] this [facility] Diagnosis Herpes zoster with ophthalmic complication, unspecified herpes zoster eye disease- Primary Post herpetic neuralgia Herpes zoster with other nervous 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, with long-term current use of insulin (HCC) Bilateral lower extremity edema Edema RYLAND (obstructive sleep apnea) Obstructive sleep apnea (adult) (pediatric) Primary hypertension Unspecified essential hypertension Opioid use documented [facility] this encounter [facility]* Diagnosis Type 2 diabetes mellitus with diabetic polyneuropathy, with long-term current use of insulin (HCC)- Primary [facility] Diagnosis Post herpetic neuralgia- Primary Herpes zoster with other nervous system complications [facility] Diagnosis Controlled type 2 diabetes mellitus without complication, with long-term current use of insulin (HCC) documented [facility] this [facility] Diagnosis Controlled type 2 diabetes mellitus without complication, with long-term current use of insulin (HCC) documented [facility] this encounter [facility]* Diagnosis OAB (overactive bladder) Hypertonicity of bladder documented [facility] this [facility] Diagnosis Bilateral lower extremity edema- Primary Edema Ulcer of lower extremity, limited to breakdown of skin, unspecified laterality ([facility]) Dyspnea, unspecified type Stage 3a chronic kidney disease ([facility]) documented [facility] this encounter [facility]* Diagnosis Onychomycosis- Primary Dermatophytosis of nail Other diabetic neurological complication associated with type 2 diabetes mellitus ([facility]) Pain in toe of left foot Pain in limb Pain in toe of right foot Pain in limb Contusion of lesser toe of left foot without damage to nail, initial encounter documented [facility] this encounter [facility] Diagnosis Contusion of lesser toe of left foot without damage to nail, initial encounter documented [facility] this encounter [facility]* Diagnosis RYLAND (obstructive sleep apnea)- Primary Obstructive sleep apnea (adult) (pediatric) Class 2 obesity with body mass index (BMI) of 37.0 to 37.9 in adult, unspecified obesity type, unspecified whether serious comorbidity present documented [facility] this encounter [facility]* Diagnosis Type 2 diabetes mellitus with diabetic polyneuropathy, with long-term current use of insulin ([facility]) documented [facility] this encounter [facility]* Diagnosis Type 2 diabetes mellitus with diabetic polyneuropathy, with long-term current use of insulin ([facility])- Primary documented in this encounter [facility]* Diagnosis Type 2 diabetes mellitus with diabetic polyneuropathy, with long-term current use of insulin ([facility])- Primary Ulcer of lower extremity, limited to breakdown of skin, unspecified laterality ([facility]) Bilateral lower extremity edema Edema Stage 3a chronic kidney disease ([facility]) Obesity, Class III, BMI >= 40 Morbid obesity RYLAND (obstructive sleep apnea) Obstructive sleep apnea (adult) (pediatric) documented in this encounter [facility] Diagnosis Bilateral lower extremity edema Edema Ulcer of lower extremity, limited to breakdown of skin, unspecified laterality ([facility]) [facility]* Diagnosis Type 2 diabetes mellitus with diabetic polyneuropathy, with long-term current use of insulin ([facility])- Primary Encounter for immunization Need for other specified prophylactic vaccination against single bacterial disease Bilateral lower extremity edema Edema RYLAND (obstructive sleep apnea) Obstructive sleep apnea (adult) (pediatric) [facility] Diagnosis Onychomycosis- Primary Dermatophytosis of nail Pain in toe of left foot Pain in limb Other diabetic neurological complication associated with type 2 diabetes mellitus (HCC) Pain in toe of right foot Pain in limb [facility] Diagnosis Type 2 diabetes mellitus with diabetic polyneuropathy, with long-term current use of insulin (HCC)- Primary [facility]* Diagnosis Type 2 diabetes mellitus with diabetic polyneuropathy, with long-term current use of insulin (HCC)- Primary [facility]* Diagnosis Controlled type 2 diabetes mellitus without complication, with long-term current use of insulin ([facility]) [facility]* Diagnosis Suspected COVID-19 virus infection- Primary Wheezing Viral URI with cough Acute upper respiratory infections of unspecified site [facility]* Diagnosis Type 2 diabetes mellitus with diabetic polyneuropathy, with long-term current use of insulin (HCC)- Primary [facility]* Diagnosis Viral URI with cough- Primary Acute upper respiratory infections of unspecified site Tongue coating Hypertrophy of tongue papillae [facility]* Diagnosis Systolic heart failure, unspecified HF chronicity (HCC)- Primary [facility]* Diagnosis Type 2 diabetes mellitus with diabetic polyneuropathy, with long-term current use of insulin (HCC)- Primary Thrush Candidiasis of mouth RYLAND (obstructive sleep apnea) Obstructive sleep apnea (adult) (pediatric) Primary hypertension Unspecified essential hypertension [facility]* Diagnosis RYLAND (obstructive sleep apnea)- Primary Obstructive sleep apnea (adult) (pediatric) Class 2 obesity with body mass index (BMI) of 37.0 to 37.9 in adult, unspecified obesity type, unspecified whether serious comorbidity present [facility]* Diagnosis Onychomycosis- Primary Dermatophytosis of nail Pain in toe of left foot Pain in limb Pain in toe of right foot Pain in limb Other diabetic neurological complication associated with type 2 diabetes mellitus (HCC) [facility]* Diagnosis Type 2 diabetes mellitus with diabetic polyneuropathy, with long-term current use of insulin ([facility]) [facility] Diagnosis OAB (overactive bladder) Hypertonicity of bladder Controlled type 2 diabetes mellitus without complication, with long-term current use of insulin ([facility]) [facility] Diagnosis Type 2 diabetes mellitus with diabetic polyneuropathy, with long-term current use of insulin (HCC) Controlled type 2 diabetes mellitus without complication, with long-term current use of insulin ([facility]) documented [facility] this encounter [facility]* Diagnosis OAB (overactive bladder) Hypertonicity of bladder Controlled type 2 diabetes mellitus without complication, with long-term current use of insulin ([facility]) [facility] Diagnosis Type 2 diabetes mellitus with diabetic polyneuropathy, with long-term current use of insulin ([facility])- Primary Primary hypertension Unspecified essential hypertension RYLAND (obstructive sleep apnea) Obstructive sleep apnea (adult) (pediatric) Post herpetic neuralgia Herpes zoster with other nervous system complications AREVALO (dyspnea on exertion) Other dyspnea and respiratory abnormality Coronary artery disease involving [place] heart without angina pectoris, unspecified vessel or lesion type Chronic systolic heart failure (HCC) Chronic systolic heart failure Bilateral lower extremity edema Edema Stage 3a chronic kidney disease ([facility]) Benign prostatic hyperplasia with nocturia OAB (overactive bladder) Hypertonicity of bladder Obesity, Class II, BMI 35-39.9 Obesity, unspecified Non-pressure chronic ulcer of unspecified part of unspecified lower leg limited to breakdown of skin ([facility]) Atherosclerotic heart disease of [place] coronary artery with other forms of angina pectoris ([facility]) documented in this encounter [facility] Diagnosis Acute on chronic systolic congestive heart failure (HCC)- Primary Acute on chronic systolic heart failure Coronary artery disease involving [place] heart without angina pectoris, unspecified vessel or lesion type Bilateral lower extremity edema Edema RYLAND (obstructive sleep apnea) Obstructive sleep apnea (adult) (pediatric) Primary hypertension Unspecified essential hypertension Stage 3a chronic kidney disease ([facility]) documented in this encounter [facility]* Diagnosis Type 2 diabetes mellitus with diabetic polyneuropathy, with long-term current use of insulin ([facility]) [facility] Diagnosis Type 2 diabetes mellitus with diabetic polyneuropathy, with long-term current use of insulin ([facility])- Primary Hyperglycemia Other abnormal glucose Hypokalemia Hypopotassemia Dehydration Lightheadedness Dizziness and giddiness SUMAN (acute kidney injury) (HCC) Acute kidney failure, unspecified Chronic systolic heart failure (HCC) Chronic systolic heart failure [facility] Diagnosis Type 2 diabetes mellitus with diabetic polyneuropathy, with long-term current use of insulin ([facility]) [facility]* Diagnosis SUMAN (acute kidney injury) (HCC)- Primary Acute kidney failure, unspecified [facility]* Diagnosis Hypokalemia- Primary Hypopotassemia [facility]* Diagnosis Chronic systolic heart failure (HCC)- Primary Chronic systolic heart failure Coronary artery disease involving [place] heart without angina pectoris, unspecified vessel or lesion type Bilateral lower extremity edema Edema [facility]* Diagnosis Cognitive communication deficit- Primary Mild cognitive impairment Mild cognitive impairment, so stated [facility]* Diagnosis Memory impairment- Primary Memory loss [facility]* Diagnosis Memory impairment- Primary Memory loss Foot drop, right Other acquired deformity of ankle and foot Type 2 diabetes mellitus with diabetic polyneuropathy, with long-term current use of insulin (HCC) Primary hypertension Unspecified essential hypertension Obesity, Class III, BMI 40-49.9 (morbid obesity) (HCC) Morbid obesity Dementia without behavioral disturbance (HCC) Dementia, unspecified, without behavioral disturbance Atherosclerotic heart disease of [place] coronary artery with other forms of angina pectoris ([facility]) [facility] Diagnosis Type 2 diabetes mellitus with diabetic polyneuropathy, with long-term current use of insulin (HCC)- Primary Primary hypertension Unspecified essential hypertension Stage 3a chronic kidney disease (HCC) RYLAND (obstructive sleep apnea) Obstructive sleep apnea (adult) (pediatric) Dementia without behavioral disturbance (HCC) Dementia, unspecified, without behavioral disturbance Obesity, Class III, BMI 40-49.9 (morbid obesity) (HCC) Morbid obesity Atherosclerotic heart disease of [place] coronary artery with other forms of angina pectoris (HCC) [facility] Diagnosis Foot drop, right Other acquired deformity of ankle and foot [facility] Diagnosis Spinal stenosis of lumbar region without neurogenic claudication- Primary Spinal stenosis, lumbar region, without neurogenic claudication Foot drop, right Other acquired deformity of ankle and foot [facility]* Diagnosis Onychomycosis- Primary Dermatophytosis of nail Pain in toe of left foot Pain in limb Pain in toe of right foot Pain in limb Other diabetic neurological complication associated with type 2 diabetes mellitus (HCC) [facility]* Diagnosis Disorder of bone- Primary Disorder of bone and cartilage, unspecified Spinal stenosis of lumbar region with neurogenic claudication Spinal stenosis, lumbar region, with neurogenic claudication [facility]* Diagnosis Malignant neoplasm metastatic to bone (HCC)- Primary Secondary malignant neoplasm of bone and bone marrow [facility]* Diagnosis Pulmonary fibrosis (HCC) Postinflammatory pulmonary fibrosis [facility]* Diagnosis Pulmonary fibrosis (HCC) Postinflammatory pulmonary fibrosis [facility]* Diagnosis Pulmonary fibrosis (HCC) Postinflammatory pulmonary fibrosis [facility]* Diagnosis Pulmonary fibrosis (HCC)- Primary Postinflammatory pulmonary fibrosis Ischemic cardiomyopathy Other specified forms of chronic ischemic heart disease Nonrheumatic mitral valve regurgitation Morbid obesity (HCC) Morbid obesity [facility]* Diagnosis Malignant neoplasm metastatic to bone (HCC)- Primary Secondary malignant neoplasm of bone and bone marrow [facility]* Diagnosis Malignant neoplasm metastatic to bone (HCC)- Primary Secondary malignant neoplasm of bone and bone marrow Disorder of bone Disorder of bone and cartilage, unspecified [facility]* Diagnosis Lumbar spine tumor- Primary Neoplasm of unspecified nature of bone, soft tissue, and skin Spinal stenosis of lumbar region with neurogenic claudication Spinal stenosis, lumbar region, with neurogenic claudication [facility]* Diagnosis 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- Primary [facility]* Diagnosis Reactive depression- Primary Dysthymic disorder Neuropathic pain Neuralgia, neuritis, and radiculitis, unspecified Mild cognitive impairment Mild cognitive impairment, so stated Dementia with behavioral disturbance (HCC) Dementia, unspecified, with behavioral disturbance [facility]* Diagnosis Spinal stenosis of lumbar region without neurogenic claudication Spinal stenosis, lumbar region, without neurogenic claudication Foot drop, right Other acquired deformity of ankle and foot documented [facility] this encounter [facility]* Diagnosis 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 and bone marrow documented in this encounter [facility]* Diagnosis Disorder of bone Disorder of bone and cartilage, unspecified Spinal stenosis of lumbar region with neurogenic claudication Spinal stenosis, lumbar region, with neurogenic claudication documented in this encounter [facility]* Diagnosis Hyperkalemia- Primary Hyperpotassemia documented in this encounter [facility]* Diagnosis Type 2 diabetes mellitus with diabetic polyneuropathy, with long-term current use of insulin (HCC)- Primary Primary hypertension Unspecified essential hypertension Hyperlipidemia, unspecified hyperlipidemia type Pulmonary fibrosis (HCC) Postinflammatory pulmonary fibrosis Reactive depression Dysthymic disorder Dementia with behavioral disturbance (HCC) Dementia, unspecified, with behavioral disturbance RYLAND (obstructive sleep apnea) Obstructive sleep apnea (adult) (pediatric) Stage 3a chronic kidney disease (HCC) Chronic midline low back pain without sciatica Atherosclerotic heart disease of [place] coronary artery with other forms of angina pectoris (HCC) Chronic systolic heart failure (HCC) Chronic systolic heart failure documented [facility] this encounter [facility]* Diagnosis Hyperkalemia- Primary Hyperpotassemia documented in this encounter [facility]* Diagnosis Type 2 diabetes mellitus with diabetic polyneuropathy, with long-term current use of insulin (HCC)- Primary documented [facility] this encounter [facility]* Diagnosis Type 2 diabetes mellitus with diabetic polyneuropathy, with long-term current use of insulin ([facility])- Primary documented in this encounter [facility]* Diagnosis Onychomycosis- Primary Dermatophytosis of nail Pain in toe of left foot Pain in limb Pain in toe of right foot Pain in limb documented in this encounter [facility]* Diagnosis Type 2 diabetes mellitus with diabetic polyneuropathy, with long-term current use of insulin ([facility])- Primary documented in this encounter [facility]* Diagnosis Reactive depression Dysthymic disorder Neuropathic pain Neuralgia, neuritis, and radiculitis, unspecified documented in this encounter [facility] for referral (narrative)* Diagnostic Procedure Only (Routine) - Closed Specialty Diagnoses / Procedures Referred By Denilson t Referred To Contact XR IMAGING Diagnoses Degenerative disc disease, lumbar Procedures XR LUMBAR MOTION 4V AP/LAT/ FLEX/EXT RADEX SPINE LUMBOSACRAL MINIMUM 4 VIEWS Larissa Friend PA-C [address] [place] [address] Xr Imaging Referral ID Status Reason Start Date Expiration Date V isits Requested Visits Authorized [id number] Closed Auto-Generate d Referral 12/29/2021 01/28/2023 1 1 [facility] for referral (narrative)* Diagnostic Procedure Only (Routine) - Closed Specialty Diagnoses / Procedures Referred By Contac t Referred To Contact XR IMAGING Diagnoses Contusion of lesser toe of left foot without damage to nail, initial encounter Procedures XR TOE AP/LAT/OBL LEFT RADEX TOE MINIMUM 2 VIEWS Shi Newberry [address] [facility] [place] [address] Xr Imaging Referral ID Status Reason Start Date Expiration Date V isits Requested Visits Authorized [id number] Closed Auto-Generate d Referral 05/19/2022 06/18/2023 1 1 [facility] for referral (narrative)* Diagnostic Procedure Only (Routine) - Closed Specialty Diagnoses / Procedures Referred By Contac t Referred To Contact XR IMAGING Diagnoses Contusion of lesser toe of left foot without damage to nail, initial encounter Procedures XR TOE AP/LAT/OBL LEFT RADEX TOE MINIMUM 2 VIEWS Shi Newberry [address] [place] [address] Xr Imaging Referral ID Status Reason Start Date Expiration Date V isits Requested Visits Authorized [id number] Closed Auto-Generate d Referral 05/19/2022 06/18/2023 1 1 [facility] for referral (narrative)* Outpatient Procedure (Routine) - Closed Specialty Diagnoses / Procedures Referred By Contac t Referred To Contact [facility] Diagnoses Acute on chronic systolic congestive heart failure (HCC) Procedures ECG COMPLETE ECG ROUTINE ECG W/LEAST 12 LDS W/I&R Dung Nguyen MD [address] [place] [address] [facility] [address] [place] [address] Referral ID Status Reason Start Date Expiration Date V isits Requested Visits Authorized [id number] Closed Auto-Generate d Referral 01/11/2023 01/11/2024 1 1 [facility] for visit Narrative* Diagnostic Procedure Only (Routine) - Closed Specialty Diagnoses / Procedures Referred By Contac t Referred To Contact XR IMAGING Diagnoses Degenerative disc disease, lumbar Procedures XR LUMBAR MOTION 4V AP/LAT/ FLEX/EXT RADEX SPINE LUMBOSACRAL MINIMUM 4 VIEWS Larissa Friend PA-C [address] [place] [address] Xr Imaging Referral ID Status Reason Start Date Expiration Date V isits Requested Visits Authorized [id number] Closed Auto-Generate d Referral 12/29/2021 01/28/2023 1 1 [facility] for visit Narrative* Diagnostic Procedure Only (Routine) - Closed Specialty Diagnoses / Procedures Referred By Contac t Referred To Contact XR IMAGING Diagnoses Contusion of lesser toe of left foot without damage to nail, initial encounter Procedures XR TOE AP/LAT/OBL LEFT RADEX TOE MINIMUM 2 VIEWS Shi Newberry [address] [place] [address] Xr Imaging Referral ID Status Reason Start Date Expiration Date V isits Requested Visits Authorized [id number] Closed Auto-Generate d Referral 05/19/2022 06/18/2023 1 1 [facility] for visit Narrative* Outpatient Procedure (Urgent) - Closed Specialty Diagnoses / Procedures Referred By Contact Referred To Contact [facility] Diagnoses Foot drop, right Procedures EMG(NEURO/NI) NERVE CONDUCTION STUDIES 9-10 STUDIES Dung Nguyen MD [address] [place] [address] Neurological [facility] [address] [place] [address] Referral ID Status Reason Start Date Expiration Date V isits Requested Visits Authorized [id number] Closed Auto-Generate d Referral 04/06/2023 04/06/2024 1 1 [facility] Advance Directives No Advanced Directives Records FoundDocuments on File Type Date Recorded Patient Hand Drawer In Helper Expl anation Advance Directive(s) 09/30/2020 11:36 AM Documents on File Type Date Recorded Patient Hand Drawer In Helper Expl anation Advance Directive(s) 09/30/2020 11:36 AM Reason for Referral Specialty Diagnoses / Procedures Referred By Contac t Referred To Contact MR IMAGING Diagnoses Visual hallucinations Procedures MRI BRAIN WO IVCON MRI BRAIN BRAIN STEM W/O CONTRAST MATERIAL Dung Nguyen MD [address] [place] [address] Mr Imaging Referral ID Status Reason Start Date Expiration Date V isits Requested Visits Authorized [id number] Closed Auto-Generate d Referral 12/21/2021 01/20/2023 1 1 Specialty Diagnoses / Procedures Referred By Contac t Referred To Contact Diagnoses Type 2 diabetes mellitus with diabetic polyneuropathy, with long-term current use of insulin (HCC) Brooke Gambino APRN.CNP [address] [place] [address] Referral ID Status Reason Start Date Expiration Date V isits Requested Visits Authorized [id number] Pending Review 1 1 Specialty Diagnoses / Procedures Referred By Contac t Referred To Contact Diagnoses Type 2 diabetes mellitus with diabetic polyneuropathy, with long-term current use of insulin (HCC) Dung Nguyen MD [address] [place] [address] Referral ID Status Reason Start Date Expiration Date Visits Re quested Visits Authorized [id number] Denied 1 1 Specialty Diagnoses / Procedures Referred By Contac t Referred To Contact Dung Nguyen MD [address] [place] [address] Referral ID Status Reason Start Date Expiration Date Visits Re quested Visits Authorized [id number] Closed 1 1 Specialty Diagnoses / Procedures Referred By Contac t Referred To Contact [facility] Diagnoses Cognitive communication deficit Procedures CONSULT TO SPEECH THERAPY OFFICE/OUTPATIENT [facility] 60-74 MINUTES ToGeorgette dunn MD [address] [place] [id number] [facility] [address] [address] Referral ID Status Reason Start Date Expiration Date Visits Requested Visits Authorized [id number] Authorized Auto-Generat ed Referral 04/04/2023 04/03/2024 99 99 Specialty Diagnoses / Procedures Referred By Contac t Referred To Contact [facility] Diagnoses Foot drop, right Procedures CONSULT TO PHYSICAL THERAPY PHYSICAL THERAPY [facility] COMPLEX 45 MINS Dung Nguyen MD [address] [place] [address] [facility] [address] [address] Referral ID Status Reason Start Date Expiration Date Visits Requested Visits Authorized [id number] Authorized PCP Requested Referral Auto-Generate d Referral 04/06/2023 04/05/2024 99 99 Specialty Diagnoses / Procedures Referred By Contact Referred To Contact [facility] Diagnoses Foot drop, right Procedures EMG(NEURO/NI) NERVE CONDUCTION STUDIES 9-10 STUDIES Dung Nguyen MD [address] [place] [address] [facility] [address] [place], [place] [id number] Referral ID Status Reason Start Date Expiration Date Visits Requested Visits Authorized [id number] Authorized Auto-Generat ed Referral 04/06/2023 04/06/2024 1 1 Specialty Diagnoses / Procedures Referred By Contac t Referred To Contact MR IMAGING Diagnoses Spinal stenosis of lumbar region without neurogenic claudication Foot drop, right Procedures MRI LUMBAR SPINE WO IVCON MRI SPINAL CANAL LUMBAR W/O CONTRAST MATERIAL Dung Nguyen MD [address] [place] [address] Mr Imaging Referral ID Status Reason Start Date Expiration Date Visits Requested Visits Authorized [id number] Authorized Auto-Generat ed Referral 05/18/2023 06/16/2024 1 1 Specialty Diagnoses / Procedures Referred By Contac t Referred To Contact MR IMAGING Diagnoses Disorder of bone Spinal stenosis of lumbar region with neurogenic claudication Procedures MRI LUMBAR SPINE WO/W IVCON MRI SPINAL CANAL LUMBAR W/O & W/CONTR MATRL Dung Nguyen MD [address] [place] [address] [place] [address] Referral ID Status Reason Start Date Expiration Date Visits Requested Visits Authorized [id number] Pending Review Auto-Generat ed Referral 06/27/2023 07/26/2024 1 1 Specialty Diagnoses / Procedures Referred By Contac t Referred To Contact [facility] Diagnoses Spinal stenosis of lumbar region with neurogenic claudication Procedures CONSULT TO [facility] OFFICE/OUTPATIENT [facility] MDM 60-74 MINUTES Dung Nguyen MD [address] [place], [place] [id number] Referral ID Status Reason Start Date Expiration Date Visits Requested Visits Authorized [id number] Authorized PCP Requested Referral 06/27/2023 06/26/2024 1 1 Specialty Diagnoses / Procedures Referred By Contac t Referred To Contact CT IMAGING Diagnoses Malignant neoplasm metastatic to bone (HCC) Procedures CT CHEST W IVCON DIAGNOSTIC COMPUTED TOMOGRAPHY THORAX W/CONTRAST Dung Nguyen MD [address] [place] [address] [address] [place] [address] Referral ID Status Reason Start Date Expiration Date Visits Requested Visits Authorized [id number] Authorized Auto-Generat ed Referral 06/30/2023 07/29/2024 1 1 Specialty Diagnoses / Procedures Referred By Contac t Referred To Contact CT IMAGING Diagnoses Malignant neoplasm metastatic to bone (HCC) Procedures CT ABD/PEL W IVCON CT ABD & PELVIS W/CONTRAST Dung Nguyen MD [address] [place] [address] [address] [place] [address] Referral ID Status Reason Start Date Expiration Date Visits Requested Visits Authorized [id number] Authorized Auto-Generat ed Referral 06/30/2023 07/29/2024 1 1 Specialty Diagnoses / Procedures Referred By Contac t Referred To Contact CT IMAGING Diagnoses Pulmonary fibrosis (HCC) Procedures CT CHEST WO IVCON DIAGNOSTIC COMPUTED TOMOGRAPHY THORAX W/O CNTRST Vane Mancuso PA-C [address] [facility] [place] [address] [place] [address] Referral ID Status Reason Start Date Expiration Date Visits Requested Visits Authorized [id number] Authorized Auto-Generat ed Referral 01/12/2024 08/11/2024 1 1 Specialty Diagnoses / Procedures Referred By Contac t Referred To Contact MR IMAGING Diagnoses Malignant neoplasm metastatic to bone (HCC) Disorder of bone Procedures MRI LUMBAR SPINE WO/W IVCON MRI SPINAL CANAL LUMBAR W/O & W/CONTR MATRL Dung Nguyen MD [address] [place], [place] [id number] Mr Imaging [id number] Referral ID Status Reason Start Date Expiration Date Visits Requested Visits Authorized [id number] Pending Review Auto-Generat ed Referral 01/18/2024 08/17/2024 1 1 Specialty Diagnoses / Procedures Referred By Contac t Referred To Contact [facility] / PULMONARY MEDICINE Diagnoses 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 Procedures CONSULT TO PULM/CRITICAL CARE OFFICE/OUTPATIENT [facility] MDM 60-74 MINUTES Dung Nguyen MD [address] [place] [address] Pulm [facility] [address] [place] [address] Referral ID Status Reason Start Date Expiration Date Visits Requested Visits Authorized [id number] Authorized PCP Requested Referral 07/04/2023 07/03/2024 1 1 Specialty Diagnoses / Procedures Referred By Contac t Referred To Contact MR IMAGING Diagnoses Spinal stenosis of lumbar region without neurogenic claudication Foot drop, right Procedures MRI LUMBAR SPINE WO IVCON MRI SPINAL CANAL LUMBAR W/O CONTRAST MATERIAL Dung Nguyen MD [facility] [place] [address] Mr Imaging [id number] Referral ID Status Reason Start Date Expiration Date V isits Requested Visits Authorized [id number] Closed Auto-Generate d Referral 05/18/2023 06/16/2024 1 1 Referral ID Status Reason Start Date Expiration Date V isits Requested Visits Authorized [id number] Closed Auto-Generate d Referral 06/30/2023 07/29/2024 1 1 Referral ID Status Reason Start Date Expiration Date V isits Requested Visits Authorized [id number] Closed Auto-Generate d Referral 06/30/2023 07/29/2024 1 1 Referral ID Status Reason Start Date Expiration Date V isits Requested Visits Authorized [id number] Closed Auto-Generate d Referral 06/27/2023 07/26/2024 1 1 Summary Purpose Family History No Family History Records FoundNo Family History Records Found Additional Source Comments Source Comments (unrecognize d section and content) In the event this informatio n is protected by the Federal Confidentiality of Alcohol and Drug Abuse Patient Records regulations: The Federal rules restrict any use of the information to criminally investigate or prosecute any alcohol or drug abuse patient.[facility] the event this information is protected by the Federal Confidentiality of Alcohol and Drug Abuse Patient Records regulations: The Federal rules restrict any use of the information to criminally investigate or prosecute any alcohol or drug abuse patient.[facility] Hospital[facility] the event this information is protected by the Federal Confidentiality of Alcohol and Drug Abuse Patient Records regulations: The Federal rules restrict any use of the information to criminally investigate or prosecute any alcohol or drug abuse patient.[facility] the event this information is protected by the Federal Confidentiality of Alcohol and Drug Abuse Patient Records regulations: The Federal rules restrict any use of the information to criminally investigate or prosecute any alcohol or drug abuse patient.[facility] Hospital[facility] the event this information is protected by the Federal Confidentiality of Alcohol and Drug Abuse Patient Records regulations: The Federal rules restrict any use of the information to criminally investigate or prosecute any alcohol or drug abuse patient.[facility] HospitalIn the event this information is protected by the Federal Confidentiality of Alcohol and Drug Abuse Patient Records regulations: The Federal rules restrict any use of the information to criminally investigate or prosecute any alcohol or drug abuse patient.[facility] HospitalIn the event this information is protected by the Federal Confidentiality of Alcohol and Drug Abuse Patient Records regulations: The Federal rules restrict any use of the information to criminally investigate or prosecute any alcohol or drug abuse patient.[facility] HospitalIn the event this information is protected by the Federal Confidentiality of Alcohol and Drug Abuse Patient Records regulations: The Federal rules restrict any use of the information to criminally investigate or prosecute any alcohol or drug abuse patient.[facility] HospitalIn the event this information is protected by the Federal Confidentiality of Alcohol and Drug Abuse Patient Records regulations: The Federal rules restrict any use of the information to criminally investigate or prosecute any alcohol or drug abuse patient.[facility] HospitalIn the event this information is protected by the Federal Confidentiality of Alcohol and Drug Abuse Patient Records regulations: The Federal rules restrict any use of the information to criminally investigate or prosecute any alcohol or drug abuse patient.[facility] HospitalIn the event this information is protected by the Federal Confidentiality of Alcohol and Drug Abuse Patient Records regulations: The Federal rules restrict any use of the information to criminally investigate or prosecute any alcohol or drug abuse patient.[facility] HospitalIn the event this information is protected by the Federal Confidentiality of Alcohol and Drug Abuse Patient Records regulations: The Federal rules restrict any use of the information to criminally investigate or prosecute any alcohol or drug abuse patient.[facility] HospitalIn the event this information is protected by the Federal Confidentiality of Alcohol and Drug Abuse Patient Records regulations: The Federal rules restrict any use of the information to criminally investigate or prosecute any alcohol or drug abuse patient.[facility] HospitalIn the event this information is protected by the Federal Confidentiality of Alcohol and Drug Abuse Patient Records regulations: The Federal rules restrict any use of the information to criminally investigate or prosecute any alcohol or drug abuse patient.[facility] HospitalIn the event this information is protected by the Federal Confidentiality of Alcohol and Drug Abuse Patient Records regulations: The Federal rules restrict any use of the information to criminally investigate or prosecute any alcohol or drug abuse patient.[facility] HospitalIn the event this information is protected by the Federal Confidentiality of Alcohol and Drug Abuse Patient Records regulations: The Federal rules restrict any use of the information to criminally investigate or prosecute any alcohol or drug abuse patient.[facility] HospitalIn the event this information is protected by the Federal Confidentiality of Alcohol and Drug Abuse Patient Records regulations: The Federal rules restrict any use of the information to criminally investigate or prosecute any alcohol or drug abuse patient.[facility] HospitalIn the event this information is protected by the Federal Confidentiality of Alcohol and Drug Abuse Patient Records regulations: The Federal rules restrict any use of the information to criminally investigate or prosecute any alcohol or drug abuse patient.[facility] HospitalIn the event this information is protected by the Federal Confidentiality of Alcohol and Drug Abuse Patient Records regulations: The Federal rules restrict any use of the information to criminally investigate or prosecute any alcohol or drug abuse patient.[facility] HospitalIn the event this information is protected by the Federal Confidentiality of Alcohol and Drug Abuse Patient Records regulations: The Federal rules restrict any use of the information to criminally investigate or prosecute any alcohol or drug abuse patient.[facility] HospitalIn the event this information is protected by the Federal Confidentiality of Alcohol and Drug Abuse Patient Records regulations: The Federal rules restrict any use of the information to criminally investigate or prosecute any alcohol or drug abuse patient.[facility] HospitalIn the event this information is protected by the Federal Confidentiality of Alcohol and Drug Abuse Patient Records regulations: The Federal rules restrict any use of the information to criminally investigate or prosecute any alcohol or drug abuse patient.[facility] HospitalIn the event this information is protected by the Federal Confidentiality of Alcohol and Drug Abuse Patient Records regulations: The Federal rules restrict any use of the information to criminally investigate or prosecute any alcohol or drug abuse patient.[facility] HospitalIn the event this information is protected by the Federal Confidentiality of Alcohol and Drug Abuse Patient Records regulations: The Federal rules restrict any use of the information to criminally investigate or prosecute any alcohol or drug abuse patient.[facility] HospitalIn the event this information is protected by the Federal Confidentiality of Alcohol and Drug Abuse Patient Records regulations: The Federal rules restrict any use of the information to criminally investigate or prosecute any alcohol or drug abuse patient.[facility] HospitalIn the event this information is protected by the Federal Confidentiality of Alcohol and Drug Abuse Patient Records regulations: The Federal rules restrict any use of the information to criminally investigate or prosecute any alcohol or drug abuse patient.[facility] HospitalIn the event this information is protected by the Federal Confidentiality of Alcohol and Drug Abuse Patient Records regulations: The Federal rules restrict any use of the information to criminally investigate or prosecute any alcohol or drug abuse patient.[facility] HospitalIn the event this information is protected by the Federal Confidentiality of Alcohol and Drug Abuse Patient Records regulations: The Federal rules restrict any use of the information to criminally investigate or prosecute any alcohol or drug abuse patient.[facility] HospitalIn the event this information is protected by the Federal Confidentiality of Alcohol and Drug Abuse Patient Records regulations: The Federal rules restrict any use of the information to criminally investigate or prosecute any alcohol or drug abuse patient.[facility] HospitalIn the event this information is protected by the Federal Confidentiality of Alcohol and Drug Abuse Patient Records regulations: The Federal rules restrict any use of the information to criminally investigate or prosecute any alcohol or drug abuse patient.[facility] HospitalIn the event this information is protected by the Federal Confidentiality of Alcohol and Drug Abuse Patient Records regulations: The Federal rules restrict any use of the information to criminally investigate or prosecute any alcohol or drug abuse patient.[facility] HospitalIn the event this information is protected by the Federal Confidentiality of Alcohol and Drug Abuse Patient Records regulations: The Federal rules restrict any use of the information to criminally investigate or prosecute any alcohol or drug abuse patient.[facility] HospitalIn the event this information is protected by the Federal Confidentiality of Alcohol and Drug Abuse Patient Records regulations: The Federal rules restrict any use of the information to criminally investigate or prosecute any alcohol or drug abuse patient.[facility] HospitalIn the event this information is protected by the Federal Confidentiality of Alcohol and Drug Abuse Patient Records regulations: The Federal rules restrict any use of the information to criminally investigate or prosecute any alcohol or drug abuse patient.[facility] HospitalIn the event this information is protected by the Federal Confidentiality of Alcohol and Drug Abuse Patient Records regulations: The Federal rules restrict any use of the information to criminally investigate or prosecute any alcohol or drug abuse patient.[facility] HospitalIn the event this information is protected by the Federal Confidentiality of Alcohol and Drug Abuse Patient Records regulations: The Federal rules restrict any use of the information to criminally investigate or prosecute any alcohol or drug abuse patient.[facility] HospitalIn the event this information is protected by the Federal Confidentiality of Alcohol and Drug Abuse Patient Records regulations: The Federal rules restrict any use of the information to criminally investigate or prosecute any alcohol or drug abuse patient.[facility] HospitalIn the event this information is protected by the Federal Confidentiality of Alcohol and Drug Abuse Patient Records regulations: The Federal rules restrict any use of the information to criminally investigate or prosecute any alcohol or drug abuse patient.[facility] HospitalIn the event this information is protected by the Federal Confidentiality of Alcohol and Drug Abuse Patient Records regulations: The Federal rules restrict any use of the information to criminally investigate or prosecute any alcohol or drug abuse patient.[facility] HospitalIn the event this information is protected by the Federal Confidentiality of Alcohol and Drug Abuse Patient Records regulations: The Federal rules restrict any use of the information to criminally investigate or prosecute any alcohol or drug abuse patient.[facility] HospitalIn the event this information is protected by the Federal Confidentiality of Alcohol and Drug Abuse Patient Records regulations: The Federal rules restrict any use of the information to criminally investigate or prosecute any alcohol or drug abuse patient.[facility] HospitalIn the event this information is protected by the Federal Confidentiality of Alcohol and Drug Abuse Patient Records regulations: The Federal rules restrict any use of the information to criminally investigate or prosecute any alcohol or drug abuse patient.[facility] HospitalIn the event this information is protected by the Federal Confidentiality of Alcohol and Drug Abuse Patient Records regulations: The Federal rules restrict any use of the information to criminally investigate or prosecute any alcohol or drug abuse patient.[facility] HospitalIn the event this information is protected by the Federal Confidentiality of Alcohol and Drug Abuse Patient Records regulations: The Federal rules restrict any use of the information to criminally investigate or prosecute any alcohol or drug abuse patient.[facility] HospitalIn the event this information is protected by the Federal Confidentiality of Alcohol and Drug Abuse Patient Records regulations: The Federal rules restrict any use of the information to criminally investigate or prosecute any alcohol or drug abuse patient.[facility] HospitalIn the event this information is protected by the Federal Confidentiality of Alcohol and Drug Abuse Patient Records regulations: The Federal rules restrict any use of the information to criminally investigate or prosecute any alcohol or drug abuse patient.[facility] HospitalIn the event this information is protected by the Federal Confidentiality of Alcohol and Drug Abuse Patient Records regulations: The Federal rules restrict any use of the information to criminally investigate or prosecute any alcohol or drug abuse patient.[facility] HospitalIn the event this information is protected by the Federal Confidentiality of Alcohol and Drug Abuse Patient Records regulations: The Federal rules restrict any use of the information to criminally investigate or prosecute any alcohol or drug abuse patient.[facility] HospitalIn the event this information is protected by the Federal Confidentiality of Alcohol and Drug Abuse Patient Records regulations: The Federal rules restrict any use of the information to criminally investigate or prosecute any alcohol or drug abuse patient.[facility] HospitalIn the event this information is protected by the Federal Confidentiality of Alcohol and Drug Abuse Patient Records regulations: The Federal rules restrict any use of the information to criminally investigate or prosecute any alcohol or drug abuse patient.[facility] HospitalIn the event this information is protected by the Federal Confidentiality of Alcohol and Drug Abuse Patient Records regulations: The Federal rules restrict any use of the information to criminally investigate or prosecute any alcohol or drug abuse patient.[facility] HospitalIn the event this information is protected by the Federal Confidentiality of Alcohol and Drug Abuse Patient Records regulations: The Federal rules restrict any use of the information to criminally investigate or prosecute any alcohol or drug abuse patient.[facility] HospitalIn the event this information is protected by the Federal Confidentiality of Alcohol and Drug Abuse Patient Records regulations: The Federal rules restrict any use of the information to criminally investigate or prosecute any alcohol or drug abuse patient.[facility] HospitalIn the event this information is protected by the Federal Confidentiality of Alcohol and Drug Abuse Patient Records regulations: The Federal rules restrict any use of the information to criminally investigate or prosecute any alcohol or drug abuse patient.[facility] HospitalIn the event this information is protected by the Federal Confidentiality of Alcohol and Drug Abuse Patient Records regulations: The Federal rules restrict any use of the information to criminally investigate or prosecute any alcohol or drug abuse patient.[facility] HospitalIn the event this information is protected by the Federal Confidentiality of Alcohol and Drug Abuse Patient Records regulations: The Federal rules restrict any use of the information to criminally investigate or prosecute any alcohol or drug abuse patient.[facility] HospitalIn the event this information is protected by the Federal Confidentiality of Alcohol and Drug Abuse Patient Records regulations: The Federal rules restrict any use of the information to criminally investigate or prosecute any alcohol or drug abuse patient.[facility] HospitalIn the event this information is protected by the Federal Confidentiality of Alcohol and Drug Abuse Patient Records regulations: The Federal rules restrict any use of the information to criminally investigate or prosecute any alcohol or drug abuse patient.[facility] HospitalIn the event this information is protected by the Federal Confidentiality of Alcohol and Drug Abuse Patient Records regulations: The Federal rules restrict any use of the information to criminally investigate or prosecute any alcohol or drug abuse patient.[facility] HospitalIn the event this information is protected by the Federal Confidentiality of Alcohol and Drug Abuse Patient Records regulations: The Federal rules restrict any use of the information to criminally investigate or prosecute any alcohol or drug abuse patient.[facility] HospitalIn the event this information is protected by the Federal Confidentiality of Alcohol and Drug Abuse Patient Records regulations: The Federal rules restrict any use of the information to criminally investigate or prosecute any alcohol or drug abuse patient.[facility] HospitalIn the event this information is protected by the Federal Confidentiality of Alcohol and Drug Abuse Patient Records regulations: The Federal rules restrict any use of the information to criminally investigate or prosecute any alcohol or drug abuse patient.[facility] HospitalIn the event this information is protected by the Federal Confidentiality of Alcohol and Drug Abuse Patient Records regulations: The Federal rules restrict any use of the information to criminally investigate or prosecute any alcohol or drug abuse patient.[facility] HospitalIn the event this information is protected by the Federal Confidentiality of Alcohol and Drug Abuse Patient Records regulations: The Federal rules restrict any use of the information to criminally investigate or prosecute any alcohol or drug abuse patient.[facility] HospitalIn the event this information is protected by the Federal Confidentiality of Alcohol and Drug Abuse Patient Records regulations: The Federal rules restrict any use of the information to criminally investigate or prosecute any alcohol or drug abuse patient.[facility] HospitalIn the event this information is protected by the Federal Confidentiality of Alcohol and Drug Abuse Patient Records regulations: The Federal rules restrict any use of the information to criminally investigate or prosecute any alcohol or drug abuse patient.[facility] HospitalIn the event this information is protected by the Federal Confidentiality of Alcohol and Drug Abuse Patient Records regulations: The Federal rules restrict any use of the information to criminally investigate or prosecute any alcohol or drug abuse patient.[facility] HospitalIn the event this information is protected by the Federal Confidentiality of Alcohol and Drug Abuse Patient Records regulations: The Federal rules restrict any use of the information to criminally investigate or prosecute any alcohol or drug abuse patient.[facility] HospitalIn the event this information is protected by the Federal Confidentiality of Alcohol and Drug Abuse Patient Records regulations: The Federal rules restrict any use of the information to criminally investigate or prosecute any alcohol or drug abuse patient.[facility] HospitalIn the event this information is protected by the Federal Confidentiality of Alcohol and Drug Abuse Patient Records regulations: The Federal rules restrict any use of the information to criminally investigate or prosecute any alcohol or drug abuse patient.[facility] HospitalIn the event this information is protected by the Federal Confidentiality of Alcohol and Drug Abuse Patient Records regulations: The Federal rules restrict any use of the information to criminally investigate or prosecute any alcohol or drug abuse patient.[facility] HospitalIn the event this information is protected by the Federal Confidentiality of Alcohol and Drug Abuse Patient Records regulations: The Federal rules restrict any use of the information to criminally investigate or prosecute any alcohol or drug abuse patient.[facility] HospitalIn the event this information is protected by the Federal Confidentiality of Alcohol and Drug Abuse Patient Records regulations: The Federal rules restrict any use of the information to criminally investigate or prosecute any alcohol or drug abuse patient.[facility] HospitalIn the event this information is protected by the Federal Confidentiality of Alcohol and Drug Abuse Patient Records regulations: The Federal rules restrict any use of the information to criminally investigate or prosecute any alcohol or drug abuse patient.[facility] HospitalIn the event this information is protected by the Federal Confidentiality of Alcohol and Drug Abuse Patient Records regulations: The Federal rules restrict any use of the information to criminally investigate or prosecute any alcohol or drug abuse patient.[facility] HospitalIn the event this information is protected by the Federal Confidentiality of Alcohol and Drug Abuse Patient Records regulations: The Federal rules restrict any use of the information to criminally investigate or prosecute any alcohol or drug abuse patient.[facility] HospitalIn the event this information is protected by the Federal Confidentiality of Alcohol and Drug Abuse Patient Records regulations: The Federal rules restrict any use of the information to criminally investigate or prosecute any alcohol or drug abuse patient.[facility] HospitalIn the event this information is protected by the Federal Confidentiality of Alcohol and Drug Abuse Patient Records regulations: The Federal rules restrict any use of the information to criminally investigate or prosecute any alcohol or drug abuse patient.[facility] HospitalIn the event this information is protected by the Federal Confidentiality of Alcohol and Drug Abuse Patient Records regulations: The Federal rules restrict any use of the information to criminally investigate or prosecute any alcohol or drug abuse patient.[facility] HospitalIn the event this information is protected by the Federal Confidentiality of Alcohol and Drug Abuse Patient Records regulations: The Federal rules restrict any use of the information to criminally investigate or prosecute any alcohol or drug abuse patient.[facility] HospitalIn the event this information is protected by the Federal Confidentiality of Alcohol and Drug Abuse Patient Records regulations: The Federal rules restrict any use of the information to criminally investigate or prosecute any alcohol or drug abuse patient.[facility] HospitalIn the event this information is protected by the Federal Confidentiality of Alcohol and Drug Abuse Patient Records regulations: The Federal rules restrict any use of the information to criminally investigate or prosecute any alcohol or drug abuse patient.[facility] HospitalIn the event this information is protected by the Federal Confidentiality of Alcohol and Drug Abuse Patient Records regulations: The Federal rules restrict any use of the information to criminally investigate or prosecute any alcohol or drug abuse patient.[facility] HospitalIn the event this information is protected by the Federal Confidentiality of Alcohol and Drug Abuse Patient Records regulations: The Federal rules restrict any use of the information to criminally investigate or prosecute any alcohol or drug abuse patient.[facility] HospitalIn the event this information is protected by the Federal Confidentiality of Alcohol and Drug Abuse Patient Records regulations: The Federal rules restrict any use of the information to criminally investigate or prosecute any alcohol or drug abuse patient.[facility] HospitalIn the event this information is protected by the Federal Confidentiality of Alcohol and Drug Abuse Patient Records regulations: The Federal rules restrict any use of the information to criminally investigate or prosecute any alcohol or drug abuse patient.[facility] HospitalIn the event this information is protected by the Federal Confidentiality of Alcohol and Drug Abuse Patient Records regulations: The Federal rules restrict any use of the information to criminally investigate or prosecute any alcohol or drug abuse patient.[facility] HospitalIn the event this information is protected by the Federal Confidentiality of Alcohol and Drug Abuse Patient Records regulations: The Federal rules restrict any use of the information to criminally investigate or prosecute any alcohol or drug abuse patient.[facility] HospitalIn the event this information is protected by the Federal Confidentiality of Alcohol and Drug Abuse Patient Records regulations: The Federal rules restrict any use of the information to criminally investigate or prosecute any alcohol or drug abuse patient.[facility] HospitalIn the event this information is protected by the Federal Confidentiality of Alcohol and Drug Abuse Patient Records regulations: The Federal rules restrict any use of the information to criminally investigate or prosecute any alcohol or drug abuse patient.[facility] HospitalIn the event this information is protected by the Federal Confidentiality of Alcohol and Drug Abuse Patient Records regulations: The Federal rules restrict any use of the information to criminally investigate or prosecute any alcohol or drug abuse patient.[facility] HospitalIn the event this information is protected by the Federal Confidentiality of Alcohol and Drug Abuse Patient Records regulations: The Federal rules restrict any use of the information to criminally investigate or prosecute any alcohol or drug abuse patient.[facility] HospitalIn the event this information is protected by the Federal Confidentiality of Alcohol and Drug Abuse Patient Records regulations: The Federal rules restrict any use of the information to criminally investigate or prosecute any alcohol or drug abuse patient.[facility] HospitalIn the event this information is protected by the Federal Confidentiality of Alcohol and Drug Abuse Patient Records regulations: The Federal rules restrict any use of the information to criminally investigate or prosecute any alcohol or drug abuse patient.[facility] HospitalIn the event this information is protected by the Federal Confidentiality of Alcohol and Drug Abuse Patient Records regulations: The Federal rules restrict any use of the information to criminally investigate or prosecute any alcohol or drug abuse patient.[facility] HospitalIn the event this information is protected by the Federal Confidentiality of Alcohol and Drug Abuse Patient Records regulations: The Federal rules restrict any use of the information to criminally investigate or prosecute any alcohol or drug abuse patient.[facility] HospitalIn the event this information is protected by the Federal Confidentiality of Alcohol and Drug Abuse Patient Records regulations: The Federal rules restrict any use of the information to criminally investigate or prosecute any alcohol or drug abuse patient.[facility] HospitalIn the event this information is protected by the Federal Confidentiality of Alcohol and Drug Abuse Patient Records regulations: The Federal rules restrict any use of the information to criminally investigate or prosecute any alcohol or drug abuse patient.[facility] HospitalIn the event this information is protected by the Federal Confidentiality of Alcohol and Drug Abuse Patient Records regulations: The Federal rules restrict any use of the information to criminally investigate or prosecute any alcohol or drug abuse patient.[facility] HospitalIn the event this information is protected by the Federal Confidentiality of Alcohol and Drug Abuse Patient Records regulations: The Federal rules restrict any use of the information to criminally investigate or prosecute any alcohol or drug abuse patient.[facility] HospitalIn the event this information is protected by the Federal Confidentiality of Alcohol and Drug Abuse Patient Records regulations: The Federal rules restrict any use of the information to criminally investigate or prosecute any alcohol or drug abuse patient.[facility] HospitalIn the event this information is protected by the Federal Confidentiality of Alcohol and Drug Abuse Patient Records regulations: The Federal rules restrict any use of the information to criminally investigate or prosecute any alcohol or drug abuse patient.[facility] HospitalIn the event this information is protected by the Federal Confidentiality of Alcohol and Drug Abuse Patient Records regulations: The Federal rules restrict any use of the information to criminally investigate or prosecute any alcohol or drug abuse patient.[facility] HospitalIn the event this information is protected by the Federal Confidentiality of Alcohol and Drug Abuse Patient Records regulations: The Federal rules restrict any use of the information to criminally investigate or prosecute any alcohol or drug abuse patient.[facility] HospitalIn the event this information is protected by the Federal Confidentiality of Alcohol and Drug Abuse Patient Records regulations: The Federal rules restrict any use of the information to criminally investigate or prosecute any alcohol or drug abuse patient.[facility] HospitalIn the event this information is protected by the Federal Confidentiality of Alcohol and Drug Abuse Patient Records regulations: The Federal rules restrict any use of the information to criminally investigate or prosecute any alcohol or drug abuse patient.[facility] HospitalIn the event this information is protected by the Federal Confidentiality of Alcohol and Drug Abuse Patient Records regulations: The Federal rules restrict any use of the information to criminally investigate or prosecute any alcohol or drug abuse patient.[facility] HospitalIn the event this information is protected by the Federal Confidentiality of Alcohol and Drug Abuse Patient Records regulations: The Federal rules restrict any use of the information to criminally investigate or prosecute any alcohol or drug abuse patient.[facility] HospitalIn the event this information is protected by the Federal Confidentiality of Alcohol and Drug Abuse Patient Records regulations: The Federal rules restrict any use of the information to criminally investigate or prosecute any alcohol or drug abuse patient.[facility] HospitalIn the event this information is protected by the Federal Confidentiality of Alcohol and Drug Abuse Patient Records regulations: The Federal rules restrict any use of the information to criminally investigate or prosecute any alcohol or drug abuse patient.[facility] HospitalIn the event this information is protected by the Federal Confidentiality of Alcohol and Drug Abuse Patient Records regulations: The Federal rules restrict any use of the information to criminally investigate or prosecute any alcohol or drug abuse patient.[facility] HospitalIn the event this information is protected by the Federal Confidentiality of Alcohol and Drug Abuse Patient Records regulations: The Federal rules restrict any use of the information to criminally investigate or prosecute any alcohol or drug abuse patient.[facility] HospitalIn the event this information is protected by the Federal Confidentiality of Alcohol and Drug Abuse Patient Records regulations: The Federal rules restrict any use of the information to criminally investigate or prosecute any alcohol or drug abuse patient.[facility] HospitalIn the event this information is protected by the Federal Confidentiality of Alcohol and Drug Abuse Patient Records regulations: The Federal rules restrict any use of the information to criminally investigate or prosecute any alcohol or drug abuse patient.[facility] HospitalIn the event this information is protected by the Federal Confidentiality of Alcohol and Drug Abuse Patient Records regulations: The Federal rules restrict any use of the information to criminally investigate or prosecute any alcohol or drug abuse patient.[facility] HospitalIn the event this information is protected by the Federal Confidentiality of Alcohol and Drug Abuse Patient Records regulations: The Federal rules restrict any use of the information to criminally investigate or prosecute any alcohol or drug abuse patient.[facility] HospitalIn the event this information is protected by the Federal Confidentiality of Alcohol and Drug Abuse Patient Records regulations: The Federal rules restrict any use of the information to criminally investigate or prosecute any alcohol or drug abuse patient.[facility] HospitalIn the event this information is protected by the Federal Confidentiality of Alcohol and Drug Abuse Patient Records regulations: The Federal rules restrict any use of the information to criminally investigate or prosecute any alcohol or drug abuse patient.[facility] HospitalIn the event this information is protected by the Federal Confidentiality of Alcohol and Drug Abuse Patient Records regulations: The Federal rules restrict any use of the information to criminally investigate or prosecute any alcohol or drug abuse patient.[facility] HospitalIn the event this information is protected by the Federal Confidentiality of Alcohol and Drug Abuse Patient Records regulations: The Federal rules restrict any use of the information to criminally investigate or prosecute any alcohol or drug abuse patient.[facility] HospitalIn the event this information is protected by the Federal Confidentiality of Alcohol and Drug Abuse Patient Records regulations: The Federal rules restrict any use of the information to criminally investigate or prosecute any alcohol or drug abuse patient.[facility] HospitalIn the event this information is protected by the Federal Confidentiality of Alcohol and Drug Abuse Patient Records regulations: The Federal rules restrict any use of the information to criminally investigate or prosecute any alcohol or drug abuse patient.[facility] HospitalIn the event this information is protected by the Federal Confidentiality of Alcohol and Drug Abuse Patient Records regulations: The Federal rules restrict any use of the information to criminally investigate or prosecute any alcohol or drug abuse patient.[facility] HospitalIn the event this information is protected by the Federal Confidentiality of Alcohol and Drug Abuse Patient Records regulations: The Federal rules restrict any use of the information to criminally investigate or prosecute any alcohol or drug abuse patient.[facility] HospitalIn the event this information is protected by the Federal Confidentiality of Alcohol and Drug Abuse Patient Records regulations: The Federal rules restrict any use of the information to criminally investigate or prosecute any alcohol or drug abuse patient.[facility] HospitalIn the event this information is protected by the Federal Confidentiality of Alcohol and Drug Abuse Patient Records regulations: The Federal rules restrict any use of the information to criminally investigate or prosecute any alcohol or drug abuse patient.[facility] HospitalIn the event this information is protected by the Federal Confidentiality of Alcohol and Drug Abuse Patient Records regulations: The Federal rules restrict any use of the information to criminally investigate or prosecute any alcohol or drug abuse patient.[facility] HospitalIn the event this information is protected by the Federal Confidentiality of Alcohol and Drug Abuse Patient Records regulations: The Federal rules restrict any use of the information to criminally investigate or prosecute any alcohol or drug abuse patient.[facility] HospitalIn the event this information is protected by the Federal Confidentiality of Alcohol and Drug Abuse Patient Records regulations: The Federal rules restrict any use of the information to criminally investigate or prosecute any alcohol or drug abuse patient.[facility] HospitalIn the event this information is protected by the Federal Confidentiality of Alcohol and Drug Abuse Patient Records regulations: The Federal rules restrict any use of the information to criminally investigate or prosecute any alcohol or drug abuse patient.[facility] HospitalIn the event this information is protected by the Federal Confidentiality of Alcohol and Drug Abuse Patient Records regulations: The Federal rules restrict any use of the information to criminally investigate or prosecute any alcohol or drug abuse patient.[facility] HospitalIn the event this information is protected by the Federal Confidentiality of Alcohol and Drug Abuse Patient Records regulations: The Federal rules restrict any use of the information to criminally investigate or prosecute any alcohol or drug abuse patient.[facility] HospitalIn the event this information is protected by the Federal Confidentiality of Alcohol and Drug Abuse Patient Records regulations: The Federal rules restrict any use of the information to criminally investigate or prosecute any alcohol or drug abuse patient.[facility] HospitalIn the event this information is protected by the Federal Confidentiality of Alcohol and Drug Abuse Patient Records regulations: The Federal rules restrict any use of the information to criminally investigate or prosecute any alcohol or drug abuse patient.[facility] HospitalIn the event this information is protected by the Federal Confidentiality of Alcohol and Drug Abuse Patient Records regulations: The Federal rules restrict any use of the information to criminally investigate or prosecute any alcohol or drug abuse patient.[facility] HospitalIn the event this information is protected by the Federal Confidentiality of Alcohol and Drug Abuse Patient Records regulations: The Federal rules restrict any use of the information to criminally investigate or prosecute any alcohol or drug abuse patient.[facility] HospitalIn the event this information is protected by the Federal Confidentiality of Alcohol and Drug Abuse Patient Records regulations: The Federal rules restrict any use of the information to criminally investigate or prosecute any alcohol or drug abuse patient.[facility] HospitalIn the event this information is protected by the Federal Confidentiality of Alcohol and Drug Abuse Patient Records regulations: The Federal rules restrict any use of the information to criminally investigate or prosecute any alcohol or drug abuse patient.[facility] HospitalIn the event this information is protected by the Federal Confidentiality of Alcohol and Drug Abuse Patient Records regulations: The Federal rules restrict any use of the information to criminally investigate or prosecute any alcohol or drug abuse patient.[facility] HospitalIn the event this information is protected by the Federal Confidentiality of Alcohol and Drug Abuse Patient Records regulations: The Federal rules restrict any use of the information to criminally investigate or prosecute any alcohol or drug abuse patient.[facility] HospitalIn the event this information is protected by the Federal Confidentiality of Alcohol and Drug Abuse Patient Records regulations: The Federal rules restrict any use of the information to criminally investigate or prosecute any alcohol or drug abuse patient.[facility] HospitalIn the event this information is protected by the Federal Confidentiality of Alcohol and Drug Abuse Patient Records regulations: The Federal rules restrict any use of the information to criminally investigate or prosecute any alcohol or drug abuse patient.[facility] HospitalIn the event this information is protected by the Federal Confidentiality of Alcohol and Drug Abuse Patient Records regulations: The Federal rules restrict any use of the information to criminally investigate or prosecute any alcohol or drug abuse patient.[facility] HospitalIn the event this information is protected by the Federal Confidentiality of Alcohol and Drug Abuse Patient Records regulations: The Federal rules restrict any use of the information to criminally investigate or prosecute any alcohol or drug abuse patient.[facility] HospitalIn the event this information is protected by the Federal Confidentiality of Alcohol and Drug Abuse Patient Records regulations: The Federal rules restrict any use of the information to criminally investigate or prosecute any alcohol or drug abuse patient.[facility] HospitalIn the event this information is protected by the Federal Confidentiality of Alcohol and Drug Abuse Patient Records regulations: The Federal rules restrict any use of the information to criminally investigate or prosecute any alcohol or drug abuse patient.[facility] HospitalIn the event this information is protected by the Federal Confidentiality of Alcohol and Drug Abuse Patient Records regulations: The Federal rules restrict any use of the information to criminally investigate or prosecute any alcohol or drug abuse patient.[facility] HospitalIn the event this information is protected by the Federal Confidentiality of Alcohol and Drug Abuse Patient Records regulations: The Federal rules restrict any use of the information to criminally investigate or prosecute any alcohol or drug abuse patient.[facility] HospitalIn the event this information is protected by the Federal Confidentiality of Alcohol and Drug Abuse Patient Records regulations: The Federal rules restrict any use of the information to criminally investigate or prosecute any alcohol or drug abuse patient.[facility] HospitalIn the event this information is protected by the Federal Confidentiality of Alcohol and Drug Abuse Patient Records regulations: The Federal rules restrict any use of the information to criminally investigate or prosecute any alcohol or drug abuse patient.[facility] HospitalIn the event this information is protected by the Federal Confidentiality of Alcohol and Drug Abuse Patient Records regulations: The Federal rules restrict any use of the information to criminally investigate or prosecute any alcohol or drug abuse patient.[facility] HospitalIn the event this information is protected by the Federal Confidentiality of Alcohol and Drug Abuse Patient Records regulations: The Federal rules restrict any use of the information to criminally investigate or prosecute any alcohol or drug abuse patient.[facility] HospitalIn the event this information is protected by the Federal Confidentiality of Alcohol and Drug Abuse Patient Records regulations: The Federal rules restrict any use of the information to criminally investigate or prosecute any alcohol or drug abuse patient.[facility] HospitalIn the event this information is protected by the Federal Confidentiality of Alcohol and Drug Abuse Patient Records regulations: The Federal rules restrict any use of the information to criminally investigate or prosecute any alcohol or drug abuse patient.[facility] HospitalIn the event this information is protected by the Federal Confidentiality of Alcohol and Drug Abuse Patient Records regulations: The Federal rules restrict any use of the information to criminally investigate or prosecute any alcohol or drug abuse patient.[facility] HospitalIn the event this information is protected by the Federal Confidentiality of Alcohol and Drug Abuse Patient Records regulations: The Federal rules restrict any use of the information to criminally investigate or prosecute any alcohol or drug abuse patient.[facility] HospitalIn the event this information is protected by the Federal Confidentiality of Alcohol and Drug Abuse Patient Records regulations: The Federal rules restrict any use of the information to criminally investigate or prosecute any alcohol or drug abuse patient.[facility] HospitalIn the event this information is protected by the Federal Confidentiality of Alcohol and Drug Abuse Patient Records regulations: The Federal rules restrict any use of the information to criminally investigate or prosecute any alcohol or drug abuse patient.[facility] HospitalIn the event this information is protected by the Federal Confidentiality of Alcohol and Drug Abuse Patient Records regulations: The Federal rules restrict any use of the information to criminally investigate or prosecute any alcohol or drug abuse patient.[facility] HospitalIn the event this information is protected by the Federal Confidentiality of Alcohol and Drug Abuse Patient Records regulations: The Federal rules restrict any use of the information to criminally investigate or prosecute any alcohol or drug abuse patient.[facility] HospitalIn the event this information is protected by the Federal Confidentiality of Alcohol and Drug Abuse Patient Records regulations: The Federal rules restrict any use of the information to criminally investigate or prosecute any alcohol or drug abuse patient.[facility] HospitalIn the event this information is protected by the Federal Confidentiality of Alcohol and Drug Abuse Patient Records regulations: The Federal rules restrict any use of the information to criminally investigate or prosecute any alcohol or drug abuse patient.[facility] HospitalIn the event this information is protected by the Federal Confidentiality of Alcohol and Drug Abuse Patient Records regulations: The Federal rules restrict any use of the information to criminally investigate or prosecute any alcohol or drug abuse patient.[facility] HospitalIn the event this information is protected by the Federal Confidentiality of Alcohol and Drug Abuse Patient Records regulations: The Federal rules restrict any use of the information to criminally investigate or prosecute any alcohol or drug abuse patient.[facility] HospitalIn the event this information is protected by the Federal Confidentiality of Alcohol and Drug Abuse Patient Records regulations: The Federal rules restrict any use of the information to criminally investigate or prosecute any alcohol or drug abuse patient.[facility] HospitalIn the event this information is protected by the Federal Confidentiality of Alcohol and Drug Abuse Patient Records regulations: The Federal rules restrict any use of the information to criminally investigate or prosecute any alcohol or drug abuse patient.[facility] Care Teams (unrecognized sec tion and content) Cloth Roll Winder Relationship Specialty Start Date End Date Dung Nguyen MD [address] [place], [place] [id number] PCP - General Family Practice 05/15/18 Ever Guidry [address] [facility] [address] [place] [id number] Referring Cardiology 08/05/20 Ned Orlando RPh [address] [place], [place] [id number] Pharmacist Pharmacy 11/12/20 Chari Ochoa, oil expellerThermoscrew Operator 06/10/21 Flakito Shearer DO [address] [facility] [address] [place], [place] [id number] Orthopedics 08/11/21 Shakira Stafford [address] [place] [address] Pain Management Anesthesiology 08/11/21 Cloth Roll Winder Relationship Specialty Start Date End Date Dung Nguyen MD [address] [place] [address] PCP - General Family Practice 05/15/18 Ever Guidry [address] [address] Referring Cardiology 08/05/20 [facility] [address] [place] [address] Pharmacist Pharmacy 11/12/20 Chari Ochoa, oil expellerThermoscrew Operator 06/10/21 Flakito Shearer DO [address] [address] Orthopedics 08/11/21 Shakiar Stafford Daily [address] [place] [address] Pain Management Anesthesiology 08/11/21 Cloth Roll Winder Relationship Specialty Start Date End Date Dung Nguyen MD [address] [place] [address] PCP - General Family Practice 05/15/18 Ever Guidry [address] [address] Referring Cardiology 08/05/20 Ned Orlando, [facility] [address] [facility] [place] [address] Pharmacist Pharmacy 11/12/20 Chari Ochoa oil expellerThermoscrew Operator 06/10/21 Flakito Shearer DO [address] [address] Orthopedics 08/11/21 Shakira Stafford [place] [address] [place] [address] Pain Management Anesthesiology 08/11/21 Cloth Roll Winder Relationship Specialty Start Date End Date Dung Nguyen MD [address] [place] [address] PCP - General Family Practice 05/15/18 Ever Guidry [address] [address] Referring Cardiology 08/05/20 Ned Orlando [facility] [address] [place] [address] Pharmacist Pharmacy 11/12/20 Chari Ochoa oil expellerThermoscrew Operator 06/10/21 Flakito Shearer DO [address] [place] [address] Orthopedics 08/11/21 Rivera Shakira Daily [address] [place] [address] Pain Management Anesthesiology 08/11/21 Cloth Roll Winder Relationship Specialty Start Date End Date Dung Nguyen MD [address] [place] [address] PCP - General Family Practice 05/15/18 Ever Guidry [address] [facility] [address] [place] [address] Referring Cardiology 08/05/20 Ned Orlando, [facility] [address] [place] [address] Pharmacist Pharmacy 11/12/20 Chari Ochoa oil expellerThermoscrew Operator 06/10/21 Flakito Shearer DO [address]27 [facility] 5 [place] [address] Orthopedics 08/11/21 Shakira Stafford Daily [address] [place] [address] Pain Management Anesthesiology 08/11/21 Cloth Roll Winder Relationship Specialty Start Date End Date Dung Nguyen MD [address] [facility] [place] [address] PCP - General Family Practice 05/15/18 Ever Guidry 176 [facility] [address] [place] [address] Referring Cardiology 08/05/20 N[facility] [address] [facility] [place] [address] Pharmacist Pharmacy 11/12/20 Chari Ochoa, oil expellerThermoscrew Operator 06/10/21 Flakito Shearer DO [address] [place] [address] Orthopedics 08/11/21 Kristal Staffordcollette Daily [address] [place] [address] Pain Management Anesthesiology 08/11/21 Cloth Roll Winder Relationship Specialty Start Date End Date Dung Nguyen MD [address] [facility] [place] [address] PCP - General Family Practice 05/15/18 Ever Guidry [address] [facility] [address] [place] [address] Referring Cardiology 08/05/20 [facility] [address] [facility] [place] [address] Pharmacist Pharmacy 11/12/20 Chari Ochoa, oil expellerThermoscrew Operator 06/10/21 Flakito Shearer DO [address] [place] [address] Orthopedics 08/11/21 Shakira Stafford [address] [place] [address] Pain Management Anesthesiology 08/11/21 Cloth Roll Winder Relationship Specialty Start Date End Date Dung Nguyen MD [address] [facility] [place] [address] PCP - General Family Practice 05/15/[address] [place] [address] Referring Cardiology 08/05/20 Ned Orlando RP [address] [facility] [place] [address] Pharmacist Pharmacy 11/12/20 Chari Ochoa, oil expellerThermoscrew Operator 06/10/21 Flakito Shearer DO [address] [place] [address] Orthopedics 08/11/21 Shakira Stafford [address] [place] [address] Pain Management Anesthesiology 08/11/21 Cloth Roll Winder Relationship Specialty Start Date End Date Dung Nguyen MD [address] [facility] [place] [address] PCP - General Family Practice 05/15/18 Ever Guidry [address] [place] [address], [place] [address] Referring Cardiology 08/05/20 Ned Orlando [facility] [address] [place] [address] Pharmacist Pharmacy 11/12/20 Chari Ochoa RN [address] [place] [address] Thermoscrew Operator 06/10/21 Flakito Shearer DO [address] [address] Orthopedics 08/11/21 Shakira Stafford [place] [address] [place] [address] Pain Management Anesthesiology 08/11/21 Cloth Roll Winder Relationship Specialty Start Date End Date Dung Nguyen MD [address] [place] [address] PCP - General Family Practice 05/15/18 Ever Guidry [address] [place] [address] Referring Cardiology 08/05/20 Ned Orlando, [facility] [address] [place] [address] Pharmacist Pharmacy 11/12/20 Chari Ochoa RN [address] [place] [address] Thermoscrew Operator 06/10/21 Flakito Shearer DO [address] [address] Orthopedics 08/11/21 [facility] [address] [place] [address] Pain Management Anesthesiology 08/11/21 Cloth Roll Winder Relationship Specialty Start Date End Date Dung Nguyen MD [address] [place] [address] PCP - General Family Practice 05/15/18 Ever Guidry [address] [place] [address] Referring Cardiology 08/05/20 [facility] [address] [facility] [place] [address] Pharmacist Pharmacy 11/12/20 Chari Ochoa RN [address] [place], [place] [address] Thermoscrew Operator 06/10/21 Flakito Shearer DO [address] [address] Orthopedics 08/11/21 Shakira Stafford [address] [place] [address] Pain Management Anesthesiology 08/11/21 Cloth Roll Winder Relationship Specialty Start Date End Date Dung Nguyen MD [address]40 [facility] [place] [address] PCP - General Family Practice 05/15/18 Ever Guidry [address] [place] [address] Referring Cardiology 08/05/20 [facility] [address] [facility] [place] [address] Pharmacist Pharmacy 11/12/20 Chari Ochoa RN [address] [place], [place] [id number] Thermoscrew Operator 06/10/21 Flakito Shearer DO [address] [place] [address] Orthopedics 08/11/21 [facility] [address] [place] [address] Pain Management Anesthesiology 08/11/21 Cloth Roll Winder Relationship Specialty Start Date End Date Dung Nguyen MD [address] [facility] [place] [address] PCP - General Family Practice 05/15/18 Ever Guidry 176 [facility] [address] [place] [address] Referring Cardiology 08/05/20 Ned Orlando, [facility] [address] [facility] [place] [address] Pharmacist Pharmacy 11/12/20 Chari Ochoa RN [address] [place], [place] [id number] Thermoscrew Operator 06/10/21 [place] [address] [place] [address], [place] [address] Orthopedics 08/11/21 Shakira Stafford [address] [place] [address] Pain Management Anesthesiology 08/11/21 Cloth Roll Winder Relationship Specialty Start Date End Date Dung Nguyen MD [address] [facility] [place] [address] PCP - General Family Practice 05/15/18 Ever Guidry [address] [place] [address] Referring Cardiology 08/05/20 Ned Orlando, [facility] [address] [facility] [place] [address] Pharmacist Pharmacy 11/12/20 Chari Ochoa RN [address] [place], [place] [id number] Thermoscrew Operator 06/10/21 Flakito Shearer DO [address] [place] [address] Orthopedics 08/11/21 [facility] [address] [place] [address] Pain Management Anesthesiology 08/11/21 Cloth Roll Winder Relationship Specialty Start Date End Date Dung Nguyen MD [address] [facility] [place] [address] PCP - General Family Practice 05/15/18 Ever Guidry 176 [facility] [address] [place] [address] Referring Cardiology 08/05/20 Ned Orlando, [facility] [address] [facility] [place] [address] Pharmacist Pharmacy 11/12/20 Chari Ochoa RN [address] [place] [address] Thermoscrew Operator 06/10/21 Flakito Shearer DO [address] [place] [address] Orthopedics 08/11/21 Kristal [facility]University [facility] [address] [place] [address] Pain Management Anesthesiology 08/11/21 Cloth Roll Winder Relationship Specialty Start Date End Date Dung Nguyen MD [address] [facility] [place] [address] PCP - General Family Practice 05/15/18 Ever Guidry 176 [facility] [address] [place] [address] Referring Cardiology 08/05/20 Ned Orlando, [facility] [address] [facility] [place] [address] Pharmacist Pharmacy 11/12/20 Chari Ochoa RN [address] [place] [address] Thermoscrew Operator 06/10/21 Flakito Shearer DO [address] [address] Orthopedics 08/11/21 Shakira Stafford [place] [address] [place] [address] Pain Management Anesthesiology 08/11/21 Cloth Roll Winder Relationship Specialty Start Date End Date Dung Nguyen MD [address] [place] [address] PCP - General Family Practice 05/15/18 Ever Guidry [address] [address] Referring Cardiology 08/05/20 Ned Orlando [facility] [address] [place] [address] Pharmacist Pharmacy 11/12/20 Chari Ochoa RN [address] [place] [address] Thermoscrew Operator 06/10/21 Flakito Shearer DO [address] [address] Orthopedics 08/11/21 [facility] [address] [place] [address] Pain Management Anesthesiology 08/11/21 Cloth Roll Winder Relationship Specialty Start Date End Date Dung Nguyen MD [address] [place] [address] PCP - General Family Practice 05/15/18 Ever Guidry 17[address] SUMAN ORTEGA [facility] [address] [place] [address] Referring Cardiology 08/05/20 [facility] [address] [facility] [place] [address] Pharmacist Pharmacy 11/12/20 Chari Ochoa RN [address] [place], [place] [address]486331 Thermoscrew Operator 06/10/21 Flakito Shearer DO [address] [place] [address] Orthopedics 08/11/21 Shakira Stafford [place] [address] [place] [address] Pain Management Anesthesiology 08/11/21 Cloth Roll Winder Relationship Specialty Start Date End Date Dung Nguyen MD [address] [facility] [place] [address] PCP - General Family Practice 05/15/18 Ever Guidry [address] SUMAN ORTEGA [address] [place] [address] Referring Cardiology 08/05/20 Pep[facility]Met[facility] [address] [facility] [place] [address] Pharmacist Pharmacy 11/12/20 Chari Ochoa RN [address] [place] [address] Thermoscrew Operator 06/10/21 Flakito Shearer DO [address] [place] [address] Orthopedics 08/11/21 Kristal StaffordUniversity [facility] [address] [place] [address] Pain Management Anesthesiology 08/11/21 Cloth Roll Winder Relationship Specialty Start Date End Date Dung Nguyen MD [address] [facility] [place] [address] PCP - General Family Practice 05/15/18 Ever Guidry [address] [place] [address] Referring Cardiology 08/05/20 Ned Orlando, [facility] [address] [facility] [place] [address] Pharmacist Pharmacy 11/12/20 Chari Ochoa RN [address] [place], [place] 1780631 Thermoscrew Operator 06/10/21 Flakito Shearer DO [address] [address] Orthopedics 08/11/21 Shakira Stafford [address] [place] [address] Pain Management Anesthesiology 08/11/21 Cloth Roll Winder Relationship Specialty Start Date End Date Dung Nguyen MD [address] [facility] [place] [address] PCP - General Family Practice 05/15/18 Ever Guidry [address] [place] [address] Referring Cardiology 08/05/20 Ned Orlando, [facility] [address] [facility] [place] [address] Pharmacist Pharmacy 11/12/20 Chari Ochoa RN [address] [place], [place] [id number] Thermoscrew Operator 06/10/21 Flakito Shearer DO [address] [place] [address] Orthopedics 08/11/21 Shakira Stafford [place] [address] [place] [address] Pain Management Anesthesiology 08/11/21 Cloth Roll Winder Relationship Specialty Start Date End Date Dung Ngueyn MD [address] [facility] [place] [address] PCP - General Family Practice 05/15/18 Ever Guidry 176 [facility] [address] [place] [address] Referring Cardiology 08/05/20 Ned Orlando, [facility] [address] [facility] [place] [address] Pharmacist Pharmacy 11/12/20 Chari Ochoa RN [address] [place] [id number] Thermoscrew Operator 06/10/21 Flakito Shearer DO 3727 [facility] 5 [place] [address] Orthopedics 08/11/21 Shakira Stafford [place] [address] [place] [address] Pain Management Anesthesiology 08/11/21 Cloth Roll Winder Relationship Specialty Start Date End Date Dung Nguyen MD [address] [facility] [place] [address] PCP - General Family Practice 05/15/18 Ever Guidry 176 [facility] [address] [place] [address] Referring Cardiology 08/05/20 Ned Orlando, [facility] [address] [facility] [place] [address] Pharmacist Pharmacy 11/12/20 Chari Ochoa RN [address] [place], [place] [id number] Thermoscrew Operator 06/10/21 Flakito Shearer DO [address] [place] [address] Orthopedics 08/11/21 Kristal StaffordUniversity of [facility] Health 546 [place] [address] Pain Management Anesthesiology 08/11/21 Cloth Roll Winder Relationship Specialty Start Date End Date Dung Nguyen MD [address] [facility] [place] [address] PCP - General Family Practice 05/15/[address] [place] [address] Referring Cardiology 08/05/20 Ned Orlando, [facility] [address] [facility] [place] [address] Pharmacist Pharmacy 11/12/20 Chari Ochoa RN [address] [place] [address] Thermoscrew Operator 06/10/21 Flakito Shearer DO [address] [place] [address] Orthopedics 08/11/21 Shakira Stafford [place] [address] [place] [address] Pain Management Anesthesiology 08/11/21 Cloth Roll Winder Relationship Specialty Start Date End Date Dung Nguyen MD [address] [facility] [place] [address] PCP - General Family Practice 05/15/18 Ever Guidry SUMANQUANG ORTEGA [facility] [address] [place] [address] Referring Cardiology 08/05/20 [facility] InstituteN[facility] martinMet[facility] [address] [place] [address] Pharmacist Pharmacy 11/12/20 Chari Ochoa RN [address] [place] [address] Thermoscrew Operator 06/10/21 Flakito Shearer DO [address] [address] Orthopedics 08/11/21 Shakira Stafford [place] [address] [place] [address] Pain Management Anesthesiology 08/11/21 Cloth Roll Winder Relationship Specialty Start Date End Date Dung Nguyen MD [address] [place] [address] PCP - General Family Practice 05/15/18 Ever Guidry [address] [address] Referring Cardiology 08/05/20 [facility] InstituteNed martin, [facility] [address] [place] [address] Pharmacist Pharmacy 11/12/20 Chari Ochoa RN [address] [place] [address] Thermoscrew Operator 06/10/21 Flakito Shearer DO [address] [address] Orthopedics 08/11/21 Shakira Stafford [place] [address] [place] [address] Pain Management Anesthesiology 08/11/21 Cloth Roll Winder Relationship Specialty Start Date End Date Dung Nguyen MD [address] [facility] [place] [address] PCP - General Family Practice 05/15/18 Ever Guidry [address] [place] [address] Referring Cardiology 08/05/20 [facility] [address] [facility] [place] [address] Pharmacist Pharmacy 11/12/20 Chari Ochoa RN [address] [place], [place] 1165331 Thermoscrew Operator 06/10/21 Flakito Shearer DO [address] [address] Orthopedics 08/11/21 Shakira Stafford [address] [place] [address] Pain Management Anesthesiology 08/11/21 Cloth Roll Winder Relationship Specialty Start Date End Date Dung Nguyen MD [address] [facility] [place] [address] PCP - General Family Medicine 05/15/18 Ever Guidry [address] [place] [address] Referring Cardiology 08/05/20 Ned [facility] [address] [facility] [place] [address] Pharmacist Pharmacy 11/12/20 Chari Ochoa RN [address] [place], [place] 8216131 Thermoscrew Operator 06/10/21 Flakito Shearer DO [address] [place] [address] Orthopedics 08/11/21 Kristal StaffordUniversity of [facility] Health [address] [place] [address] Pain Management Anesthesiology 08/11/21 Cloth Roll Winder Relationship Specialty Start Date End Date Dung Nguyen MD [address] [facility] [place] [address] PCP - General Family Medicine 05/15/18 Ever Guidry 176 [facility] [address] [place] [address] Referring Cardiology 08/05/20 Ned Orlando, [facility] [address] [facility] [place] [address] Pharmacist Pharmacy 11/12/20 Chari Ochoa RN [address] [place] [address] Thermoscrew Operator 06/10/21 Flakito Shearer DO [address] [place] [address] Orthopedics 08/11/21 Shakira Stafford [place] [address] [place] [address] Pain Management Anesthesiology 08/11/21 Cloth Roll Winder Relationship Specialty Start Date End Date Dung Nguyen MD [address] [facility] [place] [address] PCP - General Family Medicine 05/15/18 Ever Guidry 176 [facility] [address] [place] [address] Referring Cardiology 08/05/20 Ned Orlando, [facility] [address] [facility] [place] [address] Pharmacist Pharmacy 11/12/20 Chari Ochoa RN [address] [place] [address] Thermoscrew Operator 06/10/21 Flakito Shearer DO [address] [address] Orthopedics 08/11/21 [facility] [address] [place] [address] Pain Management Anesthesiology 08/11/21 Cloth Roll Winder Relationship Specialty Start Date End Date Dung Nguyen MD [address] [place] [address] PCP - General Family Medicine 05/15/18 Ever Guidry [address] [address] Referring Cardiology 08/05/20 Ned Orlando [facility] [address] [place] [address] Pharmacist Pharmacy 11/12/20 Chari Ochoa RN [address] [place] [address] Thermoscrew Operator 06/10/2108/11/22 Flakito Sheaerr DO [address] [address] Orthopedics 08/11/21 Shakira Stafford [place] [address] [place] [address] Pain Management Anesthesiology 08/11/21 Kendrick Rios RN [address] [place] [address] Thermoscrew Operator Family Medicine 06/10/21 Cloth Roll Winder Relationship Specialty Start Date End Date Dung Nguyen MD [address] [place] [address] PCP - General Family Medicine 05/15/18 Ever Guidry 1761 [facility] [address] [place] [address] Referring Cardiology 08/05/20 Ned Orlando, [facility] [address] [facility] [place] [address] Pharmacist Pharmacy 11/12/20 Flakito Shearer DO [address] [place] [address] Orthopedics 08/11/21 Shakira Stafford [place] [address] [place] [address] Pain Management Anesthesiology 08/11/21 Kendrick Rios RN [address] [place] [address] Thermoscrew Operator Family Medicine 06/10/21 Cloth Roll Winder Relationship Specialty Start Date End Date Dung Nguyen MD [address] [facility] [place] [address] PCP - General Family Medicine 05/15/18 Ever Guidry [address] SUMAN Jose [address] [place] [address] Referring Cardiology 08/05/20 Ned Orlando, [facility] [address] [facility] [place] [address] Pharmacist Pharmacy 11/12/20 Flakito Shearer DO [address] [place] [address] Orthopedics 08/11/21 Shakira Stafford [place] [address] [place] [address] Pain Management Anesthesiology 08/11/21 Kendrick Rios RN [address] [place], [place] 3498631 Thermoscrew Operator Family Medicine 06/10/21 Cloth Roll Winder Relationship Specialty Start Date End Date Dung Nguyen MD [address] [facility] [place] [address] PCP - General Family Medicine 05/15/18 Ever Guidry 176 [facility] [address] [place] [address] Referring Cardiology 08/05/20 Ned Orlando, [facility] [address] [facility] [place] [address] Pharmacist Pharmacy 11/12/20 Flakito Shearer DO [address] [place] [address] Orthopedics 08/11/21 Shakira Stafford [address] [place] [address] Pain Management Anesthesiology 08/11/21 Kendrick Rios, RN [address] [place] [address] Thermoscrew Operator Family Medicine 06/10/21 Cloth Roll Winder Relationship Specialty Start Date End Date Dung Nguyen MD [address] [facility] [place] [address] PCP - General Family Medicine 05/15/18 Ever Guidry [address] [place] [address] Referring Cardiology 08/05/20 Ned Orlando, [facility] [address] [facility] [place] [address] Pharmacist Pharmacy 11/12/20 Flakito Shearer DO [address] [place] [address] Orthopedics 08/11/21 Shakira Stafford Daily [address] [place] [address] Pain Management Anesthesiology 08/11/21 Kendrick Rios RN [address] [place] [address] Thermoscrew Operator Family Medicine 06/10/21 Cloth Roll Winder Relationship Specialty Start Date End Date Dung Nguyen MD [address] [place] [address] PCP - General Family Medicine 05/15/18 Ever Guidry 176 [facility] [address] [place] [address] Referring Cardiology 08/05/20 Ned Orlando, [facility] [address] [place] [address] Pharmacist Pharmacy 11/12/20 Flakito Shearer DO [address] [place] [address] Orthopedics 08/11/21 Echotommy Shakira [place] [address] [place] [address] Pain Management Anesthesiology 08/11/21 Kendrick Rios RN [address] [place] [address] Thermoscrew Operator Family Medicine 06/10/21 Cloth Roll Winder Relationship Specialty Start Date End Date Dung Nguyen MD [address] [facility] [place] [address] PCP - General Family Medicine 05/15/18 Ever Guidry 176 [facility] [address] [place] [address] Referring Cardiology 08/05/20 Ned Orlando, [facility] [address] [facility] [place] [address] Pharmacist Pharmacy 11/12/20 Flakito Shearer DO [address] [place] [address] Orthopedics 08/11/21 Kristal StaffordUniversity [facility] [address] [place] [address] Pain Management Anesthesiology 08/11/21 Kendrick Rios RN [address] [place] [address] Thermoscrew Operator Family Medicine 06/10/21 Cloth Roll Winder Relationship Specialty Start Date End Date Dung Nguyen MD [address] [facility] [place] [address] PCP - General Family Medicine 05/15/18 Ever Guidry YUNIEL [address] [place] [address] Referring Cardiology 08/05/20 Ned Orlando, [facility] [address] [facility] [place] [address] Pharmacist Pharmacy 11/12/20 Flakito Shearer DO [address] [place] [address] Orthopedics 08/11/21 Kristal [facility]University [facility] [address] [place] [address] Pain Management Anesthesiology 08/11/21 Kendrick Rios RN [address] [place] [address] Thermoscrew Operator Family Medicine 08/11/22 Cloth Roll Winder Relationship Specialty Start Date End Date Dung Nguyen MD [address] [facility] [place] [address] PCP - General Family Medicine 05/15/18 Ever Guidry [address] [place] [address] Referring Cardiology 08/05/20 [facility] Institute[facility] martin, [facility] [address] [place] [address] Pharmacist Pharmacy 11/12/20 Flakito Shearer DO 3727 [facility] 5 [place] [address] Orthopedics 08/11/21 Shakira Stafford [place] [address] [place] [address] Pain Management Anesthesiology 08/11/21 Kendrick Rios RN [address] [place] [address] Thermoscrew Operator Family Medicine 08/11/22 Cloth Roll Winder Relationship Specialty Start Date End Date Dung Nguyen MD [address] [place] [address] PCP - General Family Medicine 05/15/18 Ever Guidry 1761 [facility] [address] [place] [address] Referring Cardiology 08/05/20 Ned Orlando, [facility] [address] [place] [address] Pharmacist Pharmacy 11/12/20 Flakito Shearer DO 3727 [facility] 5 [place] [address] Orthopedics 08/11/21 Shakira Stafford [place] [address] [place] [address] Pain Management Anesthesiology 08/11/21 Kendrick Rios RN [address] [place] [address] Thermoscrew Operator Family Medicine 08/11/22 Cloth Roll Winder Relationship Specialty Start Date End Date Dung Nguyen MD [address] [facility] [place] [address] PCP - General Family Medicine 05/15/18 Ever Guidry 176 SUM[address] OR[address]GA [address] [place] [address] Referring Cardiology 08/05/20 Ned Orlando, [facility] [address] [facility] [place] [address] Pharmacist Pharmacy 11/12/20 Flakito Shearer DO [address] [place] [address] Orthopedics 08/11/21 Shakira Stafford [address] [place] [address] Pain Management Anesthesiology 08/11/21 Kendrick Rios, ANIBAL [address] [place] [address] Thermoscrew Operator Family Medicine 08/11/22 Cloth Roll Winder Relationship Specialty Start Date End Date Dung Nguyen MD [address] [facility] [place] [address] PCP - General Family Medicine 05/15/18 Ever Guidry 176 SUM[address] OR[address]GA [address] [place] [address] Referring Cardiology 08/05/20 Ned Orlando, [facility] [address] [facility] [place] [address] Pharmacist Pharmacy 11/12/20 Flakito Shearer DO [address] [place] [address] Orthopedics 08/11/21 Shakira Stafford [address] [place] [address] Pain Management Anesthesiology 08/11/21 Kendrick Rios RN [address] [place] [address] Thermoscrew Operator Family Medicine 08/11/22 Cloth Roll Winder Relationship Specialty Start Date End Date Dung Nguyen MD [address] [facility] [place] [address] PCP - General Family Medicine 05/15/18 Ever Guidry 176 [facility] [address] [place] [address] Referring Cardiology 08/05/20 Ned Orlando, [facility] [address] [facility] [place] [address] Pharmacist Pharmacy 11/12/20 Flakito Shearer DO [address] [place] [address] Orthopedics 08/11/21 Shakira Stafford [address] [place] [address] Pain Management Anesthesiology 08/11/21 Kendrick Rios RN [address]000 [place] [address] Thermoscrew Operator Family Medicine 08/11/22 Cloth Roll Winder Relationship Specialty Start Date End Date Dung Nguyen MD [address] [facility] [place] [address] PCP - General Family Medicine 05/15/18 Ever Guidry 176 [facility] [address] [place] [address] Referring Cardiology 08/05/20 Ned Orlando, [facility] [address] [facility] [place] [address] Pharmacist Pharmacy 11/12/20 Flakito Shearer DO [address] [place] [address] Orthopedics 08/11/21 [facility] [address] [place] [address] Pain Management Anesthesiology 08/11/21 Kendrick Rios RN [address] [place] [address] Thermoscrew Operator Family Medicine 08/11/22 Cloth Roll Winder Relationship Specialty Start Date End Date Dung Nguyen MD [address] [facility] [place] [address] PCP - General Family Medicine 05/15/18 Ever Guidry 176Kaylah ORTEGA [facility] [address] [place] [address] Referring Cardiology 08/05/20 Ned Orlando, [facility] [address] [facility] [place] [address] Pharmacist Pharmacy 11/12/20 Flakito Shearer DO 3727 [facility] 5 [place] [address] Orthopedics 08/11/21 [facility] [address] [place] [address] Pain Management Anesthesiology 08/11/21 Kendrick Rios RN [address]000 [place] [address] Thermoscrew Operator Family Medicine 08/11/22 Cloth Roll Winder Relationship Specialty Start Date End Date Dung Nguyen MD [address]40 [facility] [place] [address] PCP - General Family Medicine 05/15/18 Ever GuidryALL JORDAN [facility] [address] [place] [address] Referring Cardiology 08/05/20 Ned Orlando RPh [address] [facility] [place] [address] Pharmacist Pharmacy 11/12/20 Flakito Shearer DO [address] [address] Orthopedics 08/11/21 [facility] [address] [place] [address] Pain Management Anesthesiology 08/11/21 Kendrick Rios RN [address] [place] [address] Thermoscrew Operator Family Medicine 08/11/22 Cloth Roll Winder Relationship Specialty Start Date End Date Dung Nguyen MD [address] [place] [address] PCP - General Family Medicine 05/15/18 Ever Guidry [address] [address] Referring Cardiology 08/05/20 Darion Sc[facility]ommyMet[facility] 1740 [place] [address] Pharmacist Pharmacy 11/12/20 Flakito Shearer DO [address] [address] Orthopedics 08/11/21 [facility]ersUniversity [facility] [address] [place] [address] Pain Management Anesthesiology 08/11/21 Kendrick Rios RN [address] [place] [address] Thermoscrew Operator Family Medicine 08/11/22 Cloth Roll Winder Relationship Specialty Start Date End Date Dung Nguyen MD [address]40 [place] [address] PCP - General Family Medicine 05/15/18 Ever Guidry [address] SUM[address] JORDAN [address] [place] [address] Referring Cardiology 08/05/20 Ned Orlando, [facility] [address] [facility] [place] [address] Pharmacist Pharmacy 11/12/20 Flakito Shearer DO [address] [place] [address] Orthopedics 08/11/21 Shakira Stafford [place] [address] [place] [address] Pain Management Anesthesiology 08/11/21 Kendrick Rios RN [address] [place] [address] Thermoscrew Operator Family Medicine 08/11/22 Cloth Roll Winder Relationship Specialty Start Date End Date Dung Nguyen MD [address]40 [facility] [place] [address] PCP - General Family Medicine 05/15/18 Ever Guidry 176 SUM[address] ORTEGA [address] [place] [address] Referring Cardiology 08/05/20 Ned Orlando, [facility] [address] [facility] [place] [address] Pharmacist Pharmacy 11/12/20 Flakito Shearer DO [address] [place] [address] Orthopedics 08/11/21 Shakira Stafford [place] [address] [place] [address] Pain Management Anesthesiology 08/11/21 Kendrick Rios RN [address] [place] [id number] Thermoscrew Operator Family Medicine 08/11/22 Cloth Roll Winder Relationship Specialty Start Date End Date Dung Nguyen MD [address]40 [facility] [place] [address] PCP - General Family Medicine 05/15/18 Ever Guidry 1761 [facility] [address] [place] [address] Referring Cardiology 08/05/20 Ned Orlando, [facility] [address] [facility] [place] [address] Pharmacist Pharmacy 11/12/20 Flakito Shearer DO [address] [place] [address] Orthopedics 08/11/21 Shakira Stafford [address] [place] [address] Pain Management Anesthesiology 08/11/21 Kendrick Rios, RN [address] [place] [address] Thermoscrew Operator Family Medicine 08/11/22 Cloth Roll Winder Relationship Specialty Start Date End Date Dung Nguyen MD [address]40 [facility] [place] [address] PCP - General Family Medicine 05/15/18 Ever Guidry [address] SUM[address] Jose [address] [place] [address] Referring Cardiology 08/05/20 Ned Orlando, [facility] [address] [facility] [place] [address] Pharmacist Pharmacy 11/12/20 Flakito Shearer DO [address] [place] [address] Orthopedics 08/11/21 Shakira Stafford [address] [place] [address] Pain Management Anesthesiology 08/11/21 Kendrick Rios RN [address] [place], [place] 99[address] Thermoscrew Operator Family Medicine 08/11/22 Cloth Roll Winder Relationship Specialty Start Date End Date Dung Nguyen MD [address]40 [facility] [place] [address] PCP - General Family Medicine 05/15/18 Ever Guidry 176 [facility] [address] [place] [address] Referring Cardiology 08/05/20 [facility] [address] [place] [address] Pharmacist Pharmacy 11/12/20 Flakito Shearer DO [address] [place] [address] Orthopedics 08/11/21 Shakira Stafford [place] [address] [place] [address] Pain Management Anesthesiology 08/11/21 Kendrick Rios RN [address]000 [place] [address] Thermoscrew Operator Family Medicine 08/11/22 Cloth Roll Winder Relationship Specialty Start Date End Date Dung Nguyen MD 1740 [facility] [place] [address] PCP - General Family Medicine 05/15/18 Ever Guidry [address] [place] [address] Referring Cardiology 08/05/20 Ned Orlando, [facility] 1740 [facility] [place] [address] Pharmacist Pharmacy 11/12/20 Flakito Shearer DO [address] [place] [address] Orthopedics 08/11/21 [facility] [address] [place] [address] Pain Management Anesthesiology 08/11/21 Kendrick Rios, ANIBAL [address] [place] [address] Thermoscrew Operator Family Medicine 08/11/22 Cloth Roll Winder Relationship Specialty Start Date End Date Dung Nguyen MD 1740 [facility] [place] [address] PCP - General Family Medicine 05/15/18 Ever Guidry [address] [place] [address] Referring Cardiology 08/05/20 Ned Orlando [facility] 1740 [facility] [place] [address] Pharmacist Pharmacy 11/12/20 Flakito Shearer DO [address] [place] [address] Orthopedics 08/11/21 [facility] [address] [place] [address] Pain Management Anesthesiology 08/11/21 Kendrick Rios RN [address] [place] [address] Thermoscrew Operator Family Medicine 08/11/22 Cloth Roll Winder Relationship Specialty Start Date End Date Dung Nguyen MD 1740 [facility] [place] [address] PCP - General Family Medicine 05/15/18 Ever Guidry 176Kaylah WILL Jose [address] [place] [address] Referring Cardiology 08/05/20 [facility] 17[address] [place] [address] Pharmacist Pharmacy 11/12/20 Flakito Shearer DO 3727 [facility] [address] [place] [address] Orthopedics 08/11/21 [facility] [address] [place] [address] Pain Management Anesthesiology 08/11/21 Kendrick Rios RN [address] [place], [place] [address] Thermoscrew Operator Family Medicine 08/11/22 Cloth Roll Winder Relationship Specialty Start Date End Date Dung Nguyen MD [address] [place] [address] PCP - General Family Medicine 05/15/18 Ever Guidry [address] [address] Referring Cardiology 08/05/20 Ned Orlando, [facility] 17[address] [place] [address] Pharmacist Pharmacy 11/12/20 Flakito Shearer DO [address] [address] Orthopedics 08/11/21 [facility] [address] [place] [address] Pain Management Anesthesiology 08/11/21 Kendrick Rios RN [address] [place] [address] Thermoscrew Operator Family Medicine 08/11/22 Cloth Roll Winder Relationship Specialty Start Date End Date Dung Nguyen MD [address]40 [facility] [place] [address] PCP - General Family Medicine 05/15/18 Ever Guidry [address] [address] Referring Cardiology 08/05/20 Ned Orlando, [facility] [address] [place] [address] Pharmacist Pharmacy 11/12/20 [place] [address] [address] Orthopedics 08/11/21 Shakira Stafford [address] [place] [address] Pain Management Anesthesiology 08/11/21 Kendrick Rios, ANIBAL [address] [place] [address] Thermoscrew Operator Family Medicine 08/11/22 Cloth Roll Winder Relationship Specialty Start Date End Date Dung Nguyen MD [address] [place] [address] PCP - General Family Medicine 05/15/18 Ever Guidry [address] [address] Referring Cardiology 08/05/20 Ned Orlando, [facility] 1740 [place] [address] Pharmacist Pharmacy 11/12/20 Flakito Shearer DO [address] [address] Orthopedics 08/11/21 Shakira Stafford [place] [address] [place] [address] Pain Management Anesthesiology 08/11/21 Kendrick Rios RN [address] [place] [address] Thermoscrew Operator Family Medicine 08/11/22 Cloth Roll Winder Relationship Specialty Start Date End Date Dung Nguyen MD [address] [place] [address] PCP - General Family Medicine 05/15/18 Ever Guidry 1761 [facility] [address] [place] [address] Referring Cardiology 08/05/20 [facility] 1740 [place] [address] Pharmacist Pharmacy 11/12/20 Flakito Shearer DO 3727 [facility] 5 [place] [address] Orthopedics 08/11/21 Shakira Stafford [address] [place] [address] Pain Management Anesthesiology 08/11/21 Kendrick Rios RN [address] [place] [address] Thermoscrew Operator Family Medicine 08/11/22 Cloth Roll Winder Relationship Specialty Start Date End Date Dung Nguyen MD [address] [place] [address] PCP - General Family Medicine 05/15/18 Ever Guidry 1761 [facility] [address] [place] [address] Referring Cardiology 08/05/20 Ned Orlando [facility] [address] [place] [address] Pharmacist Pharmacy 11/12/20 Flakito Shearer DO [address] [address] Orthopedics 08/11/21 Shakira Stafford [address] [place] [address] Pain Management Anesthesiology 08/11/21 Kendrick Rios RN [address] [place] [address] Thermoscrew Operator Family Medicine 08/11/22 Cloth Roll Winder Relationship Specialty Start Date End Date Dung Nguyen MD [address] [place] [address] PCP - General Family Medicine 05/15/18 Ever Guidry [address] [address] Referring Cardiology 08/05/20 Ned Orlando RPh 1740 [place] [address] Pharmacist Pharmacy 11/12/20 Flakito Shearer DO [address] [address] Orthopedics 08/11/21 Shakira Stafford [address] [place] [address] Pain Management Anesthesiology 08/11/21 Kendrick Rios RN [address] [place], [place] [address]131 Thermoscrew Operator Family Medicine 08/11/22 Cloth Roll Winder Relationship Specialty Start Date End Date Dung Nguyen MD 1740 [facility] [place] [address] PCP - General Family Medicine 05/15/18 Ever Guidry [address] [address] Referring Cardiology 08/05/20 [facility] 1740 [place] [address] Pharmacist Pharmacy 11/12/20 Flakito Shearer DO [address] [address] Orthopedics 08/11/21 Shakira Stafford [address] [place] [address] Pain Management Anesthesiology 08/11/21 Kendrick Rios, RN [address] [place] [address] Thermoscrew Operator Family Medicine 08/11/22 Cloth Roll Winder Relationship Specialty Start Date End Date Dung Nguyen MD [address]40 [place] [address] PCP - General Family Medicine 05/15/18 Ever Guidry [address] [address] Referring Cardiology 08/05/20 Ned Orlando [facility] 17[address] [place] [address] Pharmacist Pharmacy 11/12/20 Flakito Shearer DO [address] [address] Orthopedics 08/11/21 Shakira Stafford [address] [place] [address] Pain Management Anesthesiology 08/11/21 Kendrick Rios RN [address] [place], [place] [address]31 Thermoscrew Operator Family Medicine 08/11/22 Cloth Roll Winder Relationship Specialty Start Date End Date Dung Nguyen MD [address]40 [place] [address] PCP - General Family Medicine 05/15/18 Ever Guidry [address] [address] Referring Cardiology 08/05/20 Ned Orlando RP 1740 [place] [address] Pharmacist Pharmacy 11/12/20 Flakito Shearer DO [address] [address] Orthopedics 08/11/21 Shakira Stafford MD [address] [place] [address] Pain Management Anesthesiology 08/11/21 Kendrick Rios RN [address] [place] [address] Thermoscrew Operator Family Medicine 08/11/22 Cloth Roll Winder Relationship Specialty Start Date End Date Dung Nguyen MD [address]40 [place] [address] PCP - General Family Medicine 05/15/18 Ever Guidry [address] [address] Referring Cardiology 08/05/20 [facility] 1740 [facility] [place] [address] Pharmacist Pharmacy 11/12/20 Flakito Shearer DO [address] [address] Orthopedics 08/11/21 Shakira Stafford MD [address] [place] [address] Pain Management Anesthesiology 08/11/21 Kendrick Rios, RN [address] [place] [address] Thermoscrew Operator Family Medicine 08/11/22 Cloth Roll Winder Relationship Specialty Start Date End Date Dung Nguyen MD [address] [place] [address] PCP - General Family Medicine 05/15/18 Ever Guidry [address] [address] Referring Cardiology 08/05/20 [facility] 1740 [place] [address] Pharmacist Pharmacy 11/12/20 Flakito Shearer DO [address] [address] Orthopedics 08/11/21 Shakira Stafford MD [address] [place] [address] Pain Management Anesthesiology 08/11/21 Kendrick Rios RN [address] [place] [address] Thermoscrew Operator Family Medicine 08/11/22 Cloth Roll Winder Relationship Specialty Start Date End Date Dung Nguyen MD 1740 [facility] [place] [address] PCP - General Family Medicine 05/15/18 Ever Guidry 176 [facility] [address] [place] [address] Referring Cardiology 08/05/20 Ned Orlando, [facility] 1740 [facility] [place] [address] Pharmacist Pharmacy 11/12/20 Flakito Shearer DO 3727 [facility] 5 [place] [address] Orthopedics 08/11/21 Shakira Stafford MD [address] [place] [address] Pain Management Anesthesiology 08/11/21 Kendrick Rios RN [address] [place] [address] Thermoscrew Operator Family Medicine 08/11/22 Cloth Roll Winder Relationship Specialty Start Date End Date Dung Nguyen MD 1740 [facility] [place] [address] PCP - General Family Medicine 05/15/18 Ever Guidry [address] [place] [address] Referring Cardiology 08/05/20 Ned Orlando, [facility] 1740 [facility] [place] [address] Pharmacist Pharmacy 11/12/20 Flakito Shearer DO [address] [address] Orthopedics 08/11/21 Shakira Stafford MD [address] [place] [address] Pain Management Anesthesiology 08/11/21 Kendrick Rios RN [address] [place] [address] Thermoscrew Operator Family Medicine 08/11/22 Cloth Roll Winder Relationship Specialty Start Date End Date Dung Nguyen MD [address]40 [place] [address] PCP - General Family Medicine 05/15/18 Ever Guidry [address] [address] Referring Cardiology 08/05/20 Ned Orlando, [facility] [address] [place] [address] Pharmacist Pharmacy 11/12/20 Flakito Shearer DO [address] [address] Orthopedics 08/11/21 Shakira Stafford MD [address] [place] [address] Pain Management Anesthesiology 08/11/21 Kendrick Rios RN [address] [place] [address] Thermoscrew Operator Family Medicine 08/11/22 Cloth Roll Winder Relationship Specialty Start Date End Date Dung Nguyen MD 1740 [facility] [place] [address] PCP - General Family Medicine 05/15/18 Ever Guidry [address] [place] [address] Referring Cardiology 08/05/20 [facility] 1740 [place] [address] Pharmacist Pharmacy 11/12/20 Flakito Shearer DO [address] [address] Orthopedics 08/11/21 Shakira Stafford MD [address] [place] [address] Pain Management Anesthesiology 08/11/21 Kendrick Rios, RN [address] [place] [address] Thermoscrew Operator Family Medicine 08/11/22 Cloth Roll Winder Relationship Specialty Start Date End Date Dung Nguyen MD [address]40 [place] [address] PCP - General Family Medicine 05/15/18 Ever Guidry [address] [address] Referring Cardiology 08/05/20 Ned Orlando, [facility] 1740 [place] [address] Pharmacist Pharmacy 11/12/20 Flakito Shearer DO [address] [address] Orthopedics 08/11/21 Shakira Stafford MD [address] [place] [address] Pain Management Anesthesiology 08/11/21 Kendrick Rios RN [address] [place] [address] Thermoscrew Operator Family Medicine 08/11/22 Cloth Roll Winder Relationship Specialty Start Date End Date Dung Nguyen MD [address] [place] [address] PCP - General Family Medicine 05/15/18 Ever Guidry [address] [address] Referring Cardiology 08/05/20 Ned Orlando RP [address]40 [place] [address] Pharmacist Pharmacy 11/12/20 Flakito Shearer DO [address] [address] Orthopedics 08/11/21 Shakira Stafford MD [address] [place] [address] Pain Management Anesthesiology 08/11/21 Kendrick Rios RN [address] [place] [address] Thermoscrew Operator Family Medicine 08/11/22 Cloth Roll Winder Relationship Specialty Start Date End Date Dung Nguyen MD [address]40 [place] [address] PCP - General Family Medicine 05/15/18 Ever Guidry [address] [place] [address] Referring Cardiology 08/05/20 Ned Orlando, [facility] 1740 [facility] [place] [address] Pharmacist Pharmacy 11/12/20 Flakito Shearer DO [address] [place] [address] Orthopedics 08/11/21 Shakira Stafford MD [address] [place] [address] Pain Management Anesthesiology 08/11/21 Kendrick Rios, ANIBAL [address] [place] [address] Thermoscrew Operator Family Medicine 08/11/22 Cloth Roll Winder Relationship Specialty Start Date End Date Dung Nguyen MD 1740 [facility] [place] [address] PCP - General Family Medicine 05/15/18 Ever Guidry [address] [place] [address] Referring Cardiology 08/05/20 PepeNed martin, [facility] 1740 [facility] [place] [address] Pharmacist Pharmacy 11/12/20 Flakito Shearer DO [address] [place] [address] Orthopedics 08/11/21 Shakira Stafford MD [address] [place] [address] Pain Management Anesthesiology 08/11/21 Kendrick Rios RN [address] [place] [address] Thermoscrew Operator Family Medicine 08/11/22 Cloth Roll Winder Relationship Specialty Start Date End Date Dung Nguyen MD [address] [place] [address] PCP - General Family Medicine 05/15/18 Ever Guidry MD [address] [facility] [address] [place] [address] Referring Cardiology 08/05/20 Ned Orlando [facility] [address] [facility] [address] [place] [address] Pharmacist Pharmacy 11/12/20 Flakito Shearer DO [address] [place] [address] Orthopedics 08/11/21 EchoShakira MD [address] [place] [address] Pain Management Anesthesiology 08/11/21 Kendrick Rios RN [address] [place] [address] Thermoscrew Operator Family Medicine 08/11/22 Cloth Roll Winder Relationship Specialty Start Date End Date Dung Nguyen MD 1740 [facility] [place] [address] PCP - General Family Medicine 05/15/18 Ever Guidry MD [address] [facility] [address] [place] [address] Referring Cardiology 08/05/20 Ned Orlando [facility] [address] [place] [address] Pharmacist Pharmacy 11/12/20 Flakiot Shearer DO [address] [place] [address] Orthopedics 08/11/21 Shakira Stafford MD [address] [place] [address] Pain Management Anesthesiology 08/11/21 Kendrick Rios RN [address] [place] [address] Thermoscrew Operator Family Medicine 08/11/22 Cloth Roll Winder Relationship Specialty Start Date End Date Dung Nguyen MD [address]40 [place] [address] PCP - General Family Medicine 05/15/18 Ever Guidry MD [address] [address] Referring Cardiology 08/05/20 [facility] [address] [address] Pharmacist Pharmacy 11/12/20 Flakito Shearer DO [address] [address] Orthopedics 08/11/21 Shakira Stafford MD [address] [place] [address] Pain Management Anesthesiology 08/11/21 Kendrick Rios RN [address] [place] [address] Thermoscrew Operator Family Medicine 08/11/22 Cloth Roll Winder Relationship Specialty Start Date End Date Dung Nguyen MD 1740 [facility] [place] [address] PCP - General Family Medicine 05/15/18 Ever Guidry MD [address] [place] [address] Referring Cardiology 08/05/20 [facility] [address] [place] [address] Pharmacist Pharmacy 11/12/20 Flakito Shearer DO [address] [place] [address] Orthopedics 08/11/21 Shakira Stafford MD [address] [place] [address] Pain Management Anesthesiology 08/11/21 Kendrick Rios, ANIBAL [address] [place] [address] Thermoscrew Operator Family Medicine 08/11/22 Cloth Roll Winder Relationship Specialty Start Date End Date Dung Nguyen MD 1740 [facility] [place] [address] PCP - General Family Medicine 05/15/18 Ever Guidry MD [address] [place] [address] Referring Cardiology 08/05/20 Ned Orlando, [facility] [address] [place] [address] Pharmacist Pharmacy 11/12/20 Flakito Shearer DO [address] [address] Orthopedics 08/11/21 Shakira Stafford MD [address] [place] [address] Pain Management Anesthesiology 08/11/21 Kendrick Rios RN [address] [place] [address] Thermoscrew Operator Family Medicine 08/11/22 Cloth Roll Winder Relationship Specialty Start Date End Date Dung Nguyen MD [address] [place] [address] PCP - General Family Medicine 05/15/18 Ever Guidry MD [address] [address] Referring Cardiology 08/05/20 Ned Orlando, [facility] [address] [place] [address] Pharmacist Pharmacy 11/12/20 Flakito Shearer DO [address] [address] Orthopedics 08/11/21 Shakira Stafford MD [address] [place] [address] Pain Management Anesthesiology 08/11/21 Kendrick Rios RN [address] [place] [address] Thermoscrew Operator Family Medicine 08/11/22 Cloth Roll Winder Relationship Specialty Start Date End Date Dung Nguyen MD [address]40 [place] [address] PCP - General Family Medicine 05/15/18 Ever Guidry MD [address] [address] [address], [place] [address] Referring Cardiology 08/05/20 Ned Orlando, [facility] [address] [facility] [address] [place] [address] Pharmacist Pharmacy 11/12/20 Flakito Shearer DO [address] [place] [address] Orthopedics 08/11/21 Shakira Stafford MD [address] [place] [address] Pain Management Anesthesiology 08/11/21 Kendrick Rios, RN [address] [place] [address] Thermoscrew Operator Family Medicine 08/11/22 Cloth Roll Winder Relationship Specialty Start Date End Date Dung Nguyen MD [address]40 [facility] [place] [address] PCP - General Family Medicine 05/15/18 Ever Guidry MD [address] [place] [address] Referring Cardiology 08/05/20 Ned Orlando, [facility] [address] [facility] [address] [place] [address] Pharmacist Pharmacy 11/12/20 Flakito Shearer DO [address] [place] [address] Orthopedics 08/11/21 Shakira Stafford MD [address] [place] [address] Pain Management Anesthesiology 08/11/21 Kendrick Rios RN [address] [place] [id number] Thermoscrew Operator Family Medicine 08/11/22 Cloth Roll Winder Relationship Specialty Start Date End Date Dung Nguyen MD [address]40 [facility] [place] [address] PCP - General Family Medicine 05/15/18 Ever Guidry MD 176 [facility] [address] [place] [address] Referring Cardiology 08/05/20 Ned Orlando RPh 1761 [facility] [address] [place] [address] Pharmacist Pharmacy 11/12/20 Flakito Shearer DO 3727 [facility] [address] [place] [address] Orthopedics 08/11/21 Shakira Stafford MD [address] [place] [address] Pain Management Anesthesiology 08/11/21 Kendrick Rios RN [address] [place] [address] Thermoscrew Operator Family Medicine 08/11/22 Cloth Roll Winder Relationship Specialty Start Date End Date Dung Nguyen MD 1740 [facility] [place] [address] PCP - General Family Medicine 05/15/18 Ever Guidry MD 176 [facility] [address] [place] [address] Referring Cardiology 08/05/20 Ned Orlando, [facility] [address] [address] Pharmacist Pharmacy 11/12/20 08/21/23 Flakito Shearer DO [address] [address] Orthopedics 08/11/21 Shakira Stafford MD [address] [place] [address] Pain Management Anesthesiology 08/11/21 Kendrick Rios RN 6000 [place] [address] Thermoscrew Operator Family Medicine 08/11/22 Cloth Roll Winder Relationship Specialty Start Date End Date Dung Nguyen MD [address] [place] [address] PCP - General Family Medicine 05/15/18 Ever Guidry MD [address] [address] Referring Cardiology 08/05/20 Flakito Shearer DO [address] [address] Orthopedics 08/11/21 Shakira Stafford MD [address] [place] [address] Pain Management Anesthesiology 08/11/21 Kendrick Rios RN 6[address] [place] [address] Thermoscrew Operator Family Medicine 08/11/22 Radha Zhang, [facility] [address] [place] [address] Pharmacist Pharmacy 08/29/23 Cloth Roll Winder Relationship Specialty Start Date End Date Dung Nguyen MD [address]40 [place] [address] PCP - General Family Medicine 05/15/18 Ever Guidry MD [address] [address] Referring Cardiology 08/05/20 Flakito Shearer DO [address] [address] Orthopedics 08/11/21 EchoShakira MD [address] [place] [address] Pain Management Anesthesiology 08/11/21 Kendrick Rios, RN [address] [place] [address] Thermoscrew Operator Family Medicine 08/11/22 Radha Zhang, [facility] [address] [place] [address] Pharmacist Pharmacy 08/29/23 Cloth Roll Winder Relationship Specialty Start Date End Date Dung Nguyen MD [address]40 [place] [address] PCP - General Family Medicine 05/15/18 Ever Guidry MD [address] [address] Referring Cardiology 08/05/20 Flakito Shearer DO [address] [address] Orthopedics 08/11/21 Shakira Stafford MD [address] [place] [address] Pain Management Anesthesiology 08/11/21 Kendrick Rios RN 6000 [place] [address] Thermoscrew Operator Family Medicine 08/11/[address] [place] [address] [phone] Pharmacist Pharmacy 08/29/23 Cloth Roll Winder Relationship Specialty Start Date End Date Dung Nguyen MD [address]40 [place] [address] PCP - General Family Medicine 05/15/18 Ever Guidry MD [address] [address] Referring Cardiology 08/05/20 Flakito Shearer DO [address] [address] Orthopedics 08/11/21 Shakira Stafford MD [address] [place] [address] Pain Management Anesthesiology 08/11/21 Kendrick Rios RN [address] [place] [address] Thermoscrew Operator Family Medicine 08/11/[address] [place] [address] [address] Pharmacist Pharmacy 08/29/23 Cloth Roll Winder Relationship Specialty Start Date End Date Dung Nguyen MD 1740 [facility] [place] [address] PCP - General Family Medicine 05/15/18 Ever Guidry MD [address] [facility] [address] [place] [address] Referring Cardiology 08/05/20 Flakito Shearer DO [address] [place] [address] Orthopedics 08/11/21 Shakira Stafford MD [address] [place] [address] Pain Management Anesthesiology 08/11/21 Kendrick Rios, RN [address] [place] [address] Thermoscrew Operator Family Medicine 08/11/22 ColchesterRadha, [facility] [address] [place] [address] Pharmacist Pharmacy 08/29/23 Cloth Roll Winder Relationship Specialty Start Date End Date Dung Nguyen MD 1740 [facility] [place] [address] PCP - General Family Medicine 05/15/18 Ever Guidry MD [address] [facility] [address] [place] [address] Referring Cardiology 08/05/20 Flakito Shearer DO [address] [place] [address] Orthopedics 08/11/21 Shakira Stafford MD [address] [place], [place] 225581 Pain Management Anesthesiology 08/11/21 Kendrick Rios RN 6000 [place] [address] Thermoscrew Operator Family Medicine 08/11/[address] [address] Pharmacist Pharmacy 08/29/23 Cloth Roll Winder Relationship Specialty Start Date End Date Dung Nguyen MD [address]40 [place] [address] PCP - General Family Medicine 05/15/18 [place] [address] [place] [address]011 Referring Cardiology 08/05/20 Flakito Shearer DO [address] [address] Orthopedics 08/11/21 Shakira Stafford MD [address] [place] [address] Pain Management Anesthesiology 08/11/21 Kendrick Rios RN [address] [place] [address] Thermoscrew Operator Family Medicine 08/11/22 [place] [address] [place] [address] Pharmacist Pharmacy 08/29/23 Cloth Roll Winder Relationship Specialty Start Date End Date Dung Nguyen MD [address] [place], [place] [address]331 PCP - General Family Medicine 05/15/18 Ever Guidry MD [address] [facility] [address] [place], [place] [address] Referring Cardiology 08/05/20 Flakito Shearer DO 3727 [facility] [address] [place], [place] [address] Orthopedics 08/11/21 Shakira Stafford MD [address] [place], [place] [address] Pain Management Anesthesiology 08/11/21 Kendrick Rios, RN [address] [place] [address] Thermoscrew Operator Family Medicine 08/11/22 Radha Zhang, [facility] [address] [place] [address] Pharmacist Pharmacy 08/29/23 Reason for Visit (unrecogniz ed section and content) Referral ID Status Reason Start Date Expiration Date V isits Requested Visits Authorized [id number] Closed Auto-Generate d Referral 12/21/2021 01/20/2023 1 1 Reason Onset Date Comments Refill Request 01/04/2022 Reason Comments Established Patient Nail Care Reason Comments Hospital Follow Up [facility] ER Reason Onset Date Comments Community Monitoring Outreach 01/11/2022 [facility] Follow Up Reason Comments Patient Update Reason Comments Follow Up shingles- bad pains in the head Reason Onset Date Comments Community Monitoring Outreach 01/25/2022 [facility] Follow Up Reason Onset Date Comments Community Monitoring Outreach 01/26/2022 [facility] Follow Up Reason Comments Patient Update shingles FYI-No Action Needed Reason Comments FYI: [facility] HH OT POC Reason Onset Date Comments Community Monitoring Outreach 02/08/2022 [facility] Follow Up Reason Onset Date Comments Community Monitoring Outreach 02/22/2022 [facility] Follow Up Reason Onset Date Comments Community Monitoring Outreach 02/23/2022 [facility] Follow Up Reason Comments F/U 3 months Reason Comments Results Reason Comments Shingles back head/RT eye x 3 months Reason Onset Date Comments Community Monitoring Outreach 03/25/2022 [facility] Follow Up Reason Comments [facility] ER f/u Reason Onset Date Comments Refill Request 04/02/2022 Reason Onset Date Comments Community Monitoring Outreach 04/09/2022 [facility] Follow Up Reason Comments Patient Request Reason Comments Edema biltateral lower ext remity edema with seeping Reason Comments Patient Update from 04/09/22 OV Reason Comments Freestyle Delphine 2 Reason Onset Date Comments Refill Request 04/26/2022 Reason Onset Date Comments Community Monitoring Outreach 04/28/2022 [place] [facility] Follow Up Reason Comments Refill Request Reason Comments Edema bilateral LE edema w ith weeping wounds/sores Reason Comments DME Company Reason Comments fax labs and chest xray to [facility] Reason Comments Orders Reason Comments Follow Up Nail Check Reason Comments Apnea Specialty Diagnoses / Procedures Referred By Contac t Referred To Contact Diagnoses [place] (obstructive sleep apnea) Procedures CONSULT TO SLEEP MEDICINE - ADULT OFFICE/OUTPATIENT [facility] 60-74 MINUTES Dung Nguyen MD [address] [place] [address] Referral ID Status Reason Start Date Expiration Date V isits Requested Visits Authorized [id number] Closed PCP Requested Referral 12/02/2021 12/02/2022 1 1 Reason Comments Orders Electronic Communication Reason Comments Medication Problem Refill Request Reason Comments Follow Up 3 month Reason Comments Medication Question Reason Onset Date Comments Community Monitoring Outreach 06/09/2022 CD M Follow Up Reason Comments Patient Question Reason Onset Date Comments Community Monitoring Outreach 06/23/2022 CD M Telephonic Reason Onset Date Comments Community Monitoring Outreach 06/24/2022 CD M Telephonic Reason Comments Follow Up 4 week follow up. Keith molinanetta reports he had nerve block done on Tuesday. Reason Comments Electronic Communication CPAP Supplies Reason Onset Date Comments Community Monitoring Outreach 07/08/2022 CD M Telephonic Reason Comments Plan of Care orders From October 2021 Reason Comments Electronic Communication Reason Onset Date Comments Community Monitoring Outreach 07/22/2022 CD M Telephonic Reason Onset Date Comments Community Monitoring Outreach 07/26/2022 CD M Telephonic Reason Onset Date Comments Community Monitoring Outreach 08/05/2022 CD M Telephonic Reason Comments Pt using BiPap? Verification of type of PAP being used. Reason Comments Medication Problem Reason Comments Established Patient Debridement of Nail Reason Comments Diabetes Reason Onset Date Comments community monitoring outreach 09/06/2022 CD M telephonic outreach Reason Onset Date Comments Refill Request 09/16/2022 Reason Comments Appointment Reason Comments Cough Started Tuesday Chest Congestion Head Congestion Reason Comments Appointment Patient Update Reason Comments URI Nasal drainage, coug h, congestion x10 days Reason Comments Patient Assistance Ac Cares (Trulici ty, Basaglar, Humalog) Reason Onset Date Comments community monitoring outreach 10/08/2022 CD M-Telephonic outreach Reason Comments Follow Up 2 week Reason Comments Forms Ca cares paperwor k- received in mailbox in opened envelope addressed to patient. Reason Comments Follow Up Sleep Study Reason Onset Date Comments community monitoring outreach 11/11/2022 CD M-Telephonic outreach Reason Comments Established Patient Diabetic Foot Care Reason Onset Date Comments Refill Request 11/29/2022 Reason Onset Date Comments Refill Request 12/02/2022 Reason Comments Follow Up 3 month- patient rep orts on going post shingle pain Reason Comments Rx refill; rx assistance program Reason Comments Follow Up Elevated BNP Reason Onset Date Comments community monitoring outreach 01/13/2023 CD M-Telephonic outreach Reason Onset Date Comments Virtualist 01/16/2023 Reason Comments Dizziness Reason Onset Date Comments community monitoring outreach 01/18/2023 CD M-Telephonic outreach-ER follow up Reason Comments ED Follow-up Reason Comments Insurance Authorization Humalog Reason Comments Hospital Discharge--TCM Reason Comments Fdc Plan of Care Reason Comments [facility] PT POC Reason Comments Patient Update FYI-No Action Needed Reason Comments [facility] HH, OT plan of care Reason Comments Clinical Update Reason Comments Patient Update Weight Gain Reason Onset Date Comments community monitoring outreach 2023 CD M-Telephonic outreach Reason Comments HH Request Reason Comments Social Work Services Reason Comments New Patient Specialty Diagnoses / Procedures Referred By Contac t Referred To Contact Neurology Diagnoses Mild cognitive impairment Procedures CONSULT TO NEUROLOGY OFFICE/OUTPATIENT NEW HIGH MDM 60-74 MINUTES Dung Nguyen MD [address] [place] [address] Referral ID Status Reason Start Date Expiration Date V isits Requested Visits Authorized [id number] Closed PCP Requested Referral 01/31/2023 01/31/2024 1 1 Reason Comments Cognitive Issues Reason Comments Medication Update Reason Comments Orders Patient Update Reason Comments F/U 3 Month Patient complaining of headaches frequently Reason Comments Latent Fingerprint Examiner - Other Reason Comments PT Eval Reason Onset Date Comments community monitoring outreach 05/13/2023 CD M-Telephonic outreach Reason Comments Results Reason Comments Established Patient Follow Up Diabetic Foot Check Reason Comments Results Appointment Reason Comments Results Reason Comments Patient Update Medication Problem Reason Comments Spirometry Specialty Diagnoses / [facility] Diagnoses Pulmonary fibrosis (HCC) Procedures SPIROMETRY WITH DILATOR IF OBSTRUCTED BRNCDILAT RSPSE SPMTRY PRE&POST-BRNCDILAT ADMN Nicki Euceda MD [address] [place] [address] [address] Referral ID Status Reason Start Date Expiration Date V isits Requested Visits Authorized [id number] Closed Auto-Generate d Referral 07/05/2023 08/03/2024 1 1 Specialty Diagnoses / Procedures [facility] Diagnoses Pulmonary fibrosis (HCC) Procedures LUNG VOLUMES Nicki Euceda MD [address] [place] [address] [address] Referral ID Status Reason Start Date Expiration Date V isits Requested Visits Authorized [id number] Closed Auto-Generate d Referral 07/05/2023 08/03/2024 1 1 Specialty Diagnoses / Procedures [facility] Diagnoses Pulmonary fibrosis (HCC) Procedures LUNG DIFFUSION CAPACITY (DLCO) DIFFUSING CAPACITY Nicki Euceda MD [address] [place] [address] [address] Referral ID Status Reason Start Date Expiration Date V isits Requested Visits Authorized [id number] Closed Auto-Generate d Referral 07/05/2023 08/03/2024 1 1 Specialty Diagnoses / Procedures [facility] Diagnoses Pulmonary fibrosis (HCC) Procedures OXIMETRY WITH AMBULATION NONINVASIVE EAR/PULSE OXIMETRY Nicki Baldwin MD [address] [place] [address] [facility] [address] [place] [address] Referral ID Status Reason Start Date Expiration Date V isits Requested Visits Authorized [id number] Closed Auto-Generate d Referral 07/05/2023 08/03/2024 1 1 Reason Comments Established Patient pulmonary fibrosis Reason Comments scheduling Reason Comments Patient Question Reason Onset Date Comments community monitoring outreach 07/21/2023 CD M-Telephonic outreach Reason Comments report on medications Reason Comments cost of medication Reason Comments New Patient Low Back Pain Legs weakness Specialty Diagnoses / Procedures Referred By Contac t Referred To Contact [facility] Diagnoses Spinal stenosis of lumbar region with neurogenic claudication Procedures CONSULT TO [facility] OFFICE/OUTPATIENT NEW HIGH MDM 60-74 MINUTES Dung Nguyen MD [address] [place] [address] Referral ID Status Reason Start Date Expiration Date V isits Requested Visits Authorized [id number] Closed PCP Requested Referral 06/27/2023 06/26/2024 1 1 Reason Onset Date Comments Refill Request 07/18/2023 Refill Request 08/03/2023 Reason Comments Follow Up Specialty Diagnoses / Procedures Referred By Contac t Referred To Contact [facility] Diagnoses Spinal stenosis of lumbar region without neurogenic claudication Foot drop, right Procedures MRI LUMBAR SPINE WO IVCON MRI SPINAL CANAL LUMBAR W/O CONTRAST MATERIAL Dung Nguyen MD [address] [place] [address] [place] [address] Referral ID Status Reason Start Date Expiration Date V isits Requested Visits Authorized [id number] Closed Auto-Generate d Referral 05/18/2023 06/16/2024 [address] Specialty Diagnoses / Procedures Referred By Contac t Referred To Contact CT IMAGING Diagnoses Malignant neoplasm metastatic to bone (HCC) Procedures CT CHEST W IVCON DIAGNOSTIC COMPUTED TOMOGRAPHY THORAX W/CONTRAST Dung Nguyen MD [address] [place] [address] [place] [address] Referral ID Status Reason Start Date Expiration Date V isits Requested Visits Authorized [id number] Closed Auto-Generate d Referral 06/30/2023 07/29/2024 1 1 Specialty Diagnoses / Procedures Referred By Contac t Referred To Contact [facility] IM[facility] Diagnoses Disorder of bone Spinal stenosis of lumbar region with neurogenic claudication Procedures MRI LUMBAR SPINE WO/W IVCON MRI SPINAL CANAL LUMBAR W/O & W/CONTR Dung Jacobo MD [address] [place] [address] [place] [address] Referral ID Status Reason Start Date Expiration Date V isits Requested Visits Authorized [id number] Closed Auto-Generate d Referral 06/27/2023 07/26/2024 1 1 Reason Comments Follow Up 4 month Reason Comments Release Of Medical Records Reason Onset Date Comments community monitoring outreach 08/19/2023 CD M-Telephonic outreach Reason Comments Established Patient nail care Follow Up nail care Reason Onset Date Comments Refill Request 11/17/2023 Reason Comments [facility] requesting gladys rds Reason Onset Date Comments Patient Assistance Program 11/21/2023 Basag lar Kwikpen units-100Humalog Kwikpen units-100Trulicity 0.75mg Reason Onset Date Comments Refill Request 11/24/2023 (unrecognized sect ion and content) No Status Records FoundNo Status Records Found INFORMATION SOURCE (unrecogn ized section and content) DATE CREATED AUTHOR AUTHOR'S ORGANIZ ATION 11/26/2023 [facility] FOR RECORDS PERTAINING TO PATIENTS WHO ARE OR HAVE BEEN ENROLLED IN A CHEMICAL DEPENDENCY/SUBSTANCEABUSE PROGRAM, SOME INFORMATION MAY BE OMITTED. This clinical summary was aggregated from multiple sources. Caution should be exercised in using it in the provision of clinical care. This summary normalizes information from multiple sources, and as a consequence, information in this document may materially change the coding, format and clinical context of patient data. In addition, data may be omitted in some cases. CLINICAL DECISIONS SHOULD BE BASED ON THE PRIMARY CLINICAL RECORDS. [employer] [facility]. provides no warranty or guarantee of the accuracy or completeness of information in this document.
[2023-11-28 04:12] LABS: Bedside Glucose 140 mg/dL (74-106)
[2023-11-28 04:20] LABS: Absolute Lymphocyte Count 0.18 X10^3/uL (0.83-4.51); Absolute Neutrophil Count 16.4 X10^3/uL (2.0-7.7); Basophil# 0.08 X10^3/uL; Basophil% 0.5 % (0-1); Eosinophil# 0.05 X10^3/uL; Eosinophils% 0.3 % (0-5); Hematocrit 53.9 % (40-54); Hemoglobin 16.9 g/dL (13.0-16.5); Lymphocyte # 0.18 X10^3/ul (0.83-4.51); Lymphocyte % 1.1 % (19-41); Mean Corp Hgb Conc 31.4 g/dL (32-36); Mean Corpuscular Hgb 31.6 pg (27.0-32.0); Mean Corpuscular Volume 100.9 fL (80-94); Mean Platelet Vol. 10.8 fl (6.2-12.0); Monocyte# 0.03 X10^3/uL; Monocyte% 0.2 % (0-10); NRBC Flagged by Analyzer 0.5 % (0-5); Neutrophil # 16.42 X10^3/uL (2.7-7.7); Neutrophil % 95.9 % (47-70); POSITIVE DIFFERENTIAL YES; POSITIVE MORPHOLOGY YES; Platelet Count 163 K/mm3 (150-450); RBC Distribution Width CV 16.1 % (11.6-14.6); RBC Distribution Width SD 59.8 fl (35.1-43.9); Red Blood Count 5.34 M/mm3 (4.6-6.2); White Blood Count 17.1 K/mm3 (4.4-11.0)
[2023-11-28 04:25] LABS: Differential Indicated SCAN CRITERIA MET
[2023-11-28 04:33] LABS: International Normalized Ratio 1.9; Prothrombin Time (Protime)PT. 21.5 SECONDS (11.7-14.9)
[2023-11-28 04:35] LABS: Partial Thromboplast Time 53.4 Seconds (24.1-36.2)
[2023-11-28 04:41] LABS: Anion Gap 13 (5-15); BUN 22 mg/dL (7-18); BUN/Creat Ratio 9.6 RATIO (10-20); Calcium,Total 8.9 mg/dL (8.5-10.1); Chloride 103 mmol/L (98-107); EST Glomerular Filtration Rate 29 mL/min (>60); Est Glom Filt Rate - Afr Amer 35 mL/min (>60); Estimated Creatinine Clearance 32.03 ml/min; Glucose 136 mg/dL (74-106); Potassium 3.1 mmol/L (3.5-5.1); Sodium Level 140 mmol/L (136-145); Troponin-I HS (w/2H Reflex) 74 pg/mL (3.0-78.0)
[2023-11-28 04:44] LABS: Lactic Acid 7.3 mmol/L (0.4-1.9)
[2023-11-28] MEDS: Furosemide 40 MG/4 ML Vial IV (04:48)
[2023-11-28] MEDS: 0.9% Normal Saline (1000mL) 1,000 ML 1000 ML IV (05:18)
[2023-11-28 05:21] LABS: Allen Test Positive; Base Excess -3 mmol/L (-2 to +2); Bicarbonate 21.1 mmol/L (22-26); Blood Gas Specimen Type ART; Mode Not entered; O2 Delivery Device Cannula; PO2 67 mmHG (75-100); SITE L Radial; SO2 94 % (95-99); Total Carbon Dioxide 22 mmol/L; pCO2 31.3 mmHg (35-45); pH 7.44 (7.35-7.45)
[2023-11-28] MEDS: Acetaminophen 650 MG Suppository RC (05:26)
[2023-11-28] MEDS: Piperacil/Tazobactam 4.5 GM in 0.9% Normal Saline (100mL MB+) 100 ML IV (05:33)
[2023-11-28] MEDS: Potassium Chloride 10mEq/100mL 10 MEQ/100 ML IV.SOLN. 100 MEQ IV BOLUS ×2 (05:39→07:29)
[2023-11-28] MEDS: Norepinephrine 8 MG in 0.9% Normal Saline (250mL Bag) 242 ML 9.40000000000000036 MG CONT INF (05:42)
[2023-11-28 06:09] LABS: Differential Comment SCANNED
[2023-11-28 06:10] LABS: Atypical Lymphocyte 1+ %
[2023-11-28] MEDS: Vancomycin HCl 2,000 MG in 0.9% Normal Saline (500mL Bag) 500 ML 250 MG IV (06:11)
[2023-11-28 06:15] LABS: Reflex Troponin-HS? (from REC) Y
--- NOTE | 2023-11-28 06:26 | ED.RN ---
UPDATED DR SEALS IVF ARE COMPLETE. MD WAITING FOR BNP RESULTS AND THEN WILL REASSESS FLUID RESUSCITATION.
[2023-11-28 06:37] LABS: D-Dimer Quantitative (DVT/PE) > 20.00 FEU/ug/m (0.27-0.49)
--- NOTE | 2023-11-28 06:41 | CT_ITS ---
EXAM: CT ANGIOGRAPHY CHEST WITHOUT AND WITH INTRAVENOUS CONTRAST CLINICAL INDICATION: Elevated D-dimer TECHNIQUE: Helically acquired angiography images were obtained of the chest without and with intravenous contrast. This CT exam was performed using one or more of the following dose reduction techniques: automated exposure control, adjustment of the mA and/or kV according to patient size, and/or use of iterative reconstruction technique. MIP reconstructed images were created and reviewed. CONTRAST: IV 100mL Isovue-370 RADIATION DOSE: CTDIvol = 15.04 mGy, DLP = 529.96 mGy-cm COMPARISON: No relevant prior studies available. FINDINGS: PULMONARY ARTERIES: Unremarkable. Normal in caliber. No evidence of pulmonary embolism. AORTA: Unremarkable. Normal in caliber. No evidence of dissection. GREAT VESSELS OF AORTIC ARCH: Unremarkable. Normal in caliber. No evidence of dissection. LUNGS AND PLEURAL SPACES: [place] lung volumes. Mild hazy groundglass opacities and mild increased interstitial markings in the perihilar regions and lower lung shrestha, minimal fluid opacity in the left lingula. Mild dependent consolidation and increased interstitial markings in the extreme dependent lungs. No central airway obstruction. Trace if any pleural effusion. No mass. HEART: Moderate pericardial effusion, maximum thickness 2.4 cm posterior to the heart. Advanced coronary artery calcification and left coronary artery, left anterior descending, circumflex and right coronary artery and branches, likely multifocal coronary stents. No intracardiac filling defect, small right heart chambers. Contrast reflux into the IVC and hepatic veins. MEDIASTINUM: Mediastinal lipomatosis and multiple mediastinal borderline lymph nodes, the largest roughly 2.2 cm x 1.4 cm in the left prevascular region, and 1.1 cm x 1.7 cm in the right peritracheal region. Esophagus is unremarkable. No hiatal hernia. THYROID: Unremarkable. No thyroid lesions. BONES/JOINTS: Fusion T10-11 disc space, vacuum disc at T11-T12 with prominent right osteophyte. Flowing ossification multiple mid to lower thoracic levels along the anterior vertebral bodies. GALLBLADDER AND BILE DUCTS: Most of the abdomen is not included but aren''t mildly distended gallbladder and mid pancreas, adrenals and included portions of the liver and spleen are without obvious acute abnormality. CT/CTA Chest W/WO Contrast IMPRESSION: 1. No evidence of PE. Normal aortic caliber. 2. Mild to moderate pericardial effusion, especially posterior to the heart. Advanced coronary artery calcifications and suspected stents. 3. Mediastinal lipomatosis and borderline mediastinal lymph nodes. 4. Bilateral dependent mild lung opacities and slight perihilar opacities. Electronically Signed: Eladia North MD at 7:39 EST ,
[2023-11-28 06:48] LABS: Troponin-I HS 118 pg/mL (3.0-78.0)
[2023-11-28 07:20] LABS: BNP,B-Type NATRIURETIC PEPTIDE 130.6 pg/mL (0-100)
[2023-11-28] MEDS: 0.9% Normal Saline (1000mL) 1,000 ML 999 ML IV ×3 (07:33→09:01)
[2023-11-28 08:15] LABS: Reflex Lactate? Y
--- NOTE | 2023-11-28 08:25 | PCM.RX.CS ---
Consult Antibiotic Management Pharmacy has been consulted to manage selected antibiotic: Vancomycin Type of Intervention Type of Consult: New start Suspected Infection Suspected Infection: Pneumonia Prior Doses of Antibiotics Prior Doses of Antibiotics Received/Current Regimen: Vancomycin 2000 mg IV x 1 given 11/28/23 @ 0611, patient is also on piperacillin/tazobactam 3.375 grams Q8H Labs Labs: Sodium 140 mmol/L (136-145) 11/28/23 03:52 Potassium 3.1 mmol/L (3.5-5.1) L 11/28/23 03:52 Chloride 103 mmol/L (98-107) 11/28/23 03:52 Carbon Dioxide 24.0 mmol/L (21.0-32.0) 11/28/23 03:52 Anion Gap 13 (5-15) 11/28/23 03:52 BUN 22 mg/dL (7-18) H 11/28/23 03:52 Creatinine 2.30 mg/dL (0.70-1.30) H 11/28/23 03:52 Est GFR (MDRD) Af Amer 35 mL/min (>60) L 11/28/23 03:52 Est GFR (MDRD) Non-Af 29 mL/min (>60) L 11/28/23 03:52 BUN/Creatinine Ratio 9.6 RATIO (10-20) L 11/28/23 03:52 Glucose 136 mg/dL (74-106) H 11/28/23 03:52 Microbiology Microbiology: Microbiology 11/28/23 04:10 Mucosa - Nasopharyngeal SARS-CoV-2, Influenza & RSV (PCR) - Final Dosing Weight Weight used for dosin kg Estimated Creatinine Clearance Estimated Creatinine Clearance: ~32 Goal Trough Goal Trough: 15-20 mcg/mL Pharmacy Plan for Drug Dosing Pharmacy Plan for Drug Dosing: Vancomycin 2000 mg IV x 1, followed by 1500 mg IV Q24H based on weight and renal function, trough prior to the 3rd dose Pharmacy Service will continue to monitor and adjust dosing as required. Follow-Up Labs Follow-Up Labs: Trough: Vancomycin Date/Time Labs Ordered Labs to be done on [date and time ordered]: 11/30/23 @ 0853
--- NOTE | 2023-11-28 08:33 | ED.RN ---
0733 2l paco taylor. chart would not let this nurse scan and give order. icu nurse aware
[2023-11-28 09:12] LABS: Bedside Glucose 77 mg/dL (74-106)
[2023-11-28 09:30] LABS: Lactic Acid 4.1 mmol/L (0.4-1.9)
--- NOTE | 2023-11-28 10:42 | EX.PCM.CONCC ---
Assessment & Plan Assessment/Plan (1) Septic shock: PLAN: Plan RECOMMENDATIONS: 1. Continue Levophed to maintain a mean arterial pressure at or above 65 mmHg. 2. Continue broad-spectrum antimicrobials, pending infectious workup. 3. Obtain echocardiogram. 4. Trend troponins. 5. Continue appropriate DVT prophylaxis. 6. Place PICC line. IMPRESSIONS: 1. Septic shock The patient presented with sepsis due to possible pneumonia with acute sepsis related organ dysfunction as evidenced by lactic acidemia, acute kidney injury and fluid refractory hypotension, requiring vasopressor support. Accordingly, the patient will be continued on broad-spectrum antimicrobials, pending infectious workup. He has been volume resuscitated and will be continued on vasopressor support to maintain mean arterial pressure at or above 65 mmHg. 2. Troponin elevation/pericardial effusion/atrial fibrillation Clinical concern for demand ischemia in the setting of #1. However, given the patient's hypotension and pericardial effusion noted on CT imaging of the chest, will obtain echocardiogram. Low suspicion to obtain cardiology consultation, given history of coronary artery disease. 3. Acute on chronic kidney disease Most likely prerenal in etiology in setting #1. The patient has been volume resuscitated and will be continued on vasopressors to maintain hemodynamic stability. Continue to monitor urine output for now. No current indication for renal replacement therapy. 4. History of coronary artery disease/heart failure with preserved ejection fraction/diabetes mellitus/dementia Complicates care, management, recovery and prognosis. Continue supportive care as noted above. TIME: 34 minutes of critical care time, independent of procedures, was spent addressing the patient's septic shock, troponin elevation/pericardial effusion, acute on chronic kidney disease, review of all data and collaboration with the care team. HPI Consult Data Date of Consult: 11/29/23 HPI Narrative Reason for Consultation: Septic shock HPI Narrative: The patient is an 78-year-old male, with a history as outlined below, who presented to the emergency department on November 28 with shortness of breath and chest discomfort. The patient also reported that he was experiencing nausea and diarrhea yesterday. The patient is still somewhat confused, limiting the ability to obtain medical history, given his underlying diagnosis of dementia. He does have a history of coronary artery disease, heart failure with preserved ejection fraction, hypertension and obstructive sleep apnea. He is followed in the cardiology clinic on an outpatient basis. On presentation to the emergency department, the patient was documented to have a temperature of 98.3 ?F. He was notably tachycardic and tachypneic but otherwise hemodynamically stable initially. However, over the course of his emergency department visit, the patient became progressively hypotensive. Initial laboratory evaluation revealed a white blood cell count of 17,000. D-dimer was elevated to greater than 20. Chemistry profile was notable for a potassium of 3.1 and creatinine of 2.3. Lactate was elevated at 7.3. COVID, influenza and RSV PCR's were negative. CTA chest showed no evidence for pulmonary embolism. There was note of a moderate pericardial effusion along with dependent lung opacities. There was initial concern for potential CHF in the emergency department. Therefore, the patient was administered IV Lasix. As a consequence, his blood pressure dropped. He was then provided with supplemental IV fluid hydration and ultimately started on vasopressor support. Over concerns for sepsis, the patient was initiated on broad-spectrum antimicrobials. [facility] Medical History Atherosclerotic heart disease of [place] coronary artery without angina pectoris Cardiomyopathy Cataracts, both eyes Chest pain Congestive heart failure (CHF) CPAP (continuous positive airway pressure) dependence Dementia DM type 2 (diabetes mellitus, type 2) DVT (deep venous thrombosis) Essential hypertension Former smoker Hyperlipidemia Kidney disease NSTEMI (non-ST elevated myocardial infarction) Obesity Pericardial effusion Presence of stent in coronary artery (10/20/19) Shingles Sleep apnea Spinal stenosis Home Medications folic acid 400 mcg tablet 400 mcg PO DAILY supplement 10/19/19 [History Last Taken 09/08/21] tamsulosin 0.4 mg capsule 0.4 mg PO QHS BPH 07/02/20 [History Last Taken 09/10/21 21:00] docusate sodium 100 mg capsule (Colace) 100 mg PO BID 10/29/21 [History Last Taken Unknown] krill oil 500 mg capsule 500 mg PO DAILY 10/29/21 [History Last Taken Unknown] baclofen 10 mg tablet 10 mg PO TID PRN Muscle pain/spasm #90 tabs 11/02/21 [Rx Last Taken Unknown] cholecalciferol (vitamin D3) 50 mcg (2,000 unit) capsule 50 mcg PO DAILY 01/28/22 [History Last Taken Unknown] naloxone 0.4 mg/0.4 mL injection, auto-injector 4 mg IM PRN 05/25/22 [History Last Taken Unknown] nitroglycerin 0.4 mg sublingual tablet 0.4 mg sublingual Q5-15M PRN Chest Pain 01/05/23 [History Last Taken Unknown] albuterol sulfate 90 mcg/actuation aerosol inhaler 2 puff inhalation Q4H PRN PRN Shortness Of Breath 01/21/23 [History Last Taken Unknown] acetaminophen 500 mg tablet 1,000 mg (2 x 500 mg) PO Q8H PRN PRN Pain Score 1-3 #0 tabs 01/25/23 [Rx Last Taken Unknown] aspirin 81 mg tablet,delayed release (Adult Aspirin Regimen) 81 mg PO DAILY 03/10/23 [History Last Taken Unknown] carvedilol 3.125 mg tablet 3.125 mg PO BIDCM #180 tabs 04/07/23 [Rx Last Taken Unknown] hydrocodone-acetaminophen 5-325mg 5mg-325mg 2 tab PO DAILY PRN Pain 04/07/23 [History Last Taken Unknown] insulin glargine 100 unit/mL (3 mL) subcutaneous pen (Basaglar KwikPen U-100 Insulin) 38 unit subcut BID diabetes 04/07/23 [History Last Taken Unknown] potassium chloride 20 mEq tablet,extended release 20 meq PO BID #180 tabs 05/02/23 [Rx Last Taken Unknown] gabapentin 600 mg tablet 600 mg PO .6x07/11/23 [History Last Taken Unknown] atorvastatin 40 mg tablet 40 mg PO DAILY 09/08/23 [History Last Taken Unknown] duloxetine 60 mg capsule,delayed release sprinkle (Drizalma Sprinkle) 60 mg PO DAILY 09/08/23 [History Last Taken Unknown] memantine 5 mg tablet 5 mg PO BID 11/18/23 [History Last Taken Unknown] dulaglutide 0.75 mg/0.5 mL subcutaneous pen injector (Trulicity) 0.75 mg subcut QWEEK 11/23/23 [History Last Taken Unknown] furosemide 40 mg tablet 40 mg PO BID 11/23/23 [History Last Taken Unknown] clopidogrel 75 mg tablet 75 mg PO DAILY #90 tabs 11/24/23 [Rx Last Taken Unknown] insulin aspart U-100 100 unit/mL subcutaneous solution (Novolog U-100 Insulin aspart) 16 unit subcut BREAKFAST 11/28/23 [History Last Taken Unknown] insulin aspart U-100 100 unit/mL subcutaneous solution (Novolog U-100 Insulin aspart) 18 unit subcut 1200,1700 11/28/23 [History Last Taken Unknown] metolazone 5 mg tablet 5 mg PO DAILY 11/28/23 [History Last Taken Unknown] Allergy/AdvReac Type Severity Reaction Status Date / Time lisinopril AdvReac cough Verified 07/11/23 10:07 Surgical History H/O knee surgery History of back surgery History of left heart catheterization (10/20/19) Presence of coronary angioplasty implant and graft (~10/20/19) Social History household members: spouse Smoking Status: Former smoker how long ago did patient quit smokin+ years used cigars ocationally alcohol intake: current alcohol intake frequency: a few times a month Alcohol type: beer substance use type: does not use caffeine: No ROS ROS Narrative 10 systems were reviewed with pertinent positives as noted in the HPI above. Physical Exam Const alert and no apparent distress Constitutional Narrative: A bit confused. General Appearance: cooperative HEENT normocephalic and head/scalp atraumatic Eyes PERRL, EOMs intact bilaterally and conjunctivae normal Neck supple General: trachea midline Chest inspection of chest normal Resp normal respiratory effort Effort and Inspection: tachypneic Cardio S1 normal heart sound and S2 normal heart sound Rate: tachycardic Rhythm: abnormal rhythm GI normal to inspection, nondistended, normoactive bowel sounds Extremity no clubbing, cyanosis or edema Skin no rashes or lesions noted Neuro CN's II-XII intact bilaterally and no focal motor deficits Psych Mood & Affect: flat affect Lab / Micro Data 11/29/23 03:00 11/29/23 03:00 Labs: Laboratory Results - last 24 hr 11/28/23 03:47: POC Glucose 140 H 11/28/23 03:52: WBC 17.1 H, RBC 5.34, Hgb 16.9 H, Hct 53.9, MCV 100.9 H, MCH 31.6, MCHC 31.4 L, RDW Std Deviation 59.8 H, RDW Coeff of Susan 16.1 H, Plt Count 163, MPV 10.8, Immature Gran % (Auto) 2.000 H, Neut % (Auto) 95.9 H, Lymph % (Auto) 1.1 L, Sierra % (Auto) 0.2, Eos % (Auto) 0.3, Baso % (Auto) 0.5, Absolute Neuts (auto) 16.4 H, Absolute Lymphs (auto) 0.18 L, Nucleated RBC % 0.5, Differential Comment SCANNED, Atypical Lymphocytes 1+, PT 21.5 H, INR 1.9, APTT 53.4 H, D-Dimer Quant (PE/DVT) > 20.00 H*, Sodium 140, Potassium 3.1 L, Chloride 103, Carbon Dioxide 24.0, Anion Gap 13, BUN 22 H, Creatinine 2.30 H, Estim Creat Clear Calc 32.03, Est GFR (MDRD) Af Amer 35 L, Est GFR (MDRD) Non-Af 29 L, BUN/Creatinine Ratio 9.6 L, Glucose 136 H, Calcium 8.9, Troponin I High Sens 74, B-Natriuretic Peptide 130.6 H 11/28/23 04:10: Lactic Acid 7.3 H* 11/28/23 06:20: Troponin I High Sens 118 H 11/28/23 08:15: Lactic Acid 4.1 H* 11/28/23 08:55: POC Glucose 77 Micro: Microbiology 11/28/23 04:10 Mucosa - Nasopharyngeal SARS-CoV-2, Influenza & RSV (PCR) - Final ABG Data ABG results: ABG 11/28/23 05:17 Specimen Type ART Sample Site L Radial pH 7.44 Bicarbonate Actual 21.1 L Total CO2 22 Base Excess -3 L O2 Saturation 94 L O2 % 5.0 ABG pCO2 31.3 L ABG pO2 67 L Jose Test Positive O2 Delivery Device Cannula Vent Mode Not entered Imaging Radiology Impression Chest X-Ray 11/28/23 03:53 IMPRESSION: 1. Pulmonary hypoinflation with new moderate wedge-shaped opacity in the medial right lung base and new completely obscured visualization of the left hemidiaphragm. 2. Considerations include atelectasis, infiltrate and infarct. Electronically Signed: Eladia North MD at 5:16 EST , Chest CTA 11/28/23 06:41 IMPRESSION: 1. No evidence of PE. Normal aortic caliber. 2. Mild to moderate pericardial effusion, especially posterior to the heart. Advanced coronary artery calcifications and suspected stents. 3. Mediastinal lipomatosis and borderline mediastinal lymph nodes. 4. Bilateral dependent mild lung opacities and slight perihilar opacities. Electronically Signed: Eladia North MD at 7:39 EST , Charges/Coding Procedures Hospitalists Procedures: 09114 Critical Care 1st Hr
--- NOTE | 2023-11-28 10:47 | ECHOCS_ITS ---
Reason For Study: SOB Procedure This was a 2D Doppler, Color Flow transthoracic echocardiogram. The study was technically difficult. Patient scanned supine. Exam performed portable in ICU/CCU. Left Ventricle Normal LV size. The left ventricular ejection fraction is 40 %. There is mild to moderate global hypokinesis of the left ventricle. Right Ventricle Normal RV size. Normal systolic function. Atria The left atrium is moderately enlarged. Normal right atrium. Mitral Valve Normal mitral valve. Tricuspid Valve Normal tricuspid valve. Aortic Valve Trisinus/trileaflet aortic valve. Mild focal aortic valve calcification. Pericardium/Pleural Moderate pericardial effusion. There are no echocardiographic indications of cardiac tamponade. Medication Diluted definity 2ml given slow IV push to enhance endocardial definition. MMode/2D Measurements & Calculations LVIDd: 4.0 cm IVSd: 1.3 cm LVOT diam: 2.0 cm LVIDs: 3.7 cm LVPWd: 1.3 cm LVOT area: 3.3 cm2 RVDd: 3.2 cm FS: 8.6 % Ao root diam: 3.4 cm LAV(MOD-bp): 86.5 ml LVAd ap4: 34.0 cm2 LAV(MOD-bp) Indexed: 37.4 ml/m2 LVLd ap4: 7.6 cm LAV(MOD-sp2): 77.7 ml EDV(MOD-sp4): 121.2 ml LAV(MOD-sp4): 91.5 ml EDV(sp4-el): 128.7 ml LVAs ap4: 29.5 cm2 LVLs ap4: 7.8 cm ESV(MOD-sp4): 95.9 ml ESV(sp4-el): 94.1 ml EF(MOD-sp4): 20.9 % EF(sp4-el): 26.9 % SV(MOD-sp4): 25.3 ml SV(MOD-sp2): 27.0 ml LVAd ap2: 31.6 cm2 LVLd ap2: 7.6 cm EDV(MOD-sp2): 106.1 ml EDV(sp2-el): 112.2 ml LVAs ap2: 25.2 cm2 LVLs ap2: 6.5 cm ESV(MOD-sp2): 79.0 ml ESV(sp2-el): 82.9 ml EF(MOD-sp2): 25.5 % SV(sp4-el): 34.7 ml LA A4 area: 27.3 cm2 RA A4 area: 15.1 cm2 Doppler Measurements & Calculations MV E max francisco: 99.7 cm/sec Ao V2 max: 144.8 cm/sec LV V1 max: 79.7 cm/sec Ao max P.5 mmHg LV V1 max P.6 mmHg Ao V2 mean: 99.6 cm/sec LV V1 mean P.5 mmHg Ao mean P.4 mmHg LV V1 mean: 57.7 cm/sec Ao V2 VTI: 21.2 cm LV V1 VTI: 11.7 cm AV (velocity ratio): 0.55 ELIDA(I,D): 1.8 cm2 LEIDA(V,D): 1.8 cm2 SV(LVOT): 38.5 ml PA V2 max: 72.4 cm/sec ECHO/Echo Complete W/ Contrast Interpretation Summary The left ventricular ejection fraction is 40 %. Normal LV size. Mild focal aortic valve calcification. Moderate pericardial effusion. There are no echocardiographic indications of cardiac tamponade. The study was technically limited. The study was technically difficult. Contras t injection was performed. Ordering Physician: Elian Gudino Referring Physician: Franklin Nguyen Performed By: Valentina West RDCS
--- NOTE | 2023-11-28 11:18 | PCM.HP.STD ---
HPI - General General Date of Admission: 11/28/23 HPI Narrative LUCIA NEGRO, is a 78 M who presents to the hospital significant shortness of breath. He states that everything started this morning including fevers and chills. He does have some lower extremity edema with a history of heart failure so initially there was concerns that the shortness of breath was due to heart failure he did have a slightly elevated BNP and was given a dose of Lasix however this led to hypotension and then he was found to have a leukocytosis to 17 so there is concerns for sepsis given his white count, fever, tachycardia which qualifies for sepsis because of his insurance. He was then given fluids to the 30 cc/kg requirement and started on broad-spectrum antibiotics. He states that he was feeling well yesterday and the day prior and that everything started this morning when he woke up at around 2 AM. Unfortunately he is not the greatest historian due to some underlying dementia and no family is present at bedside. He was also endorsing some chest pain and so a troponin was obtained which was normal at 74 but then repeat rodolfo to 118. The gas was also elevated to 4.1 and he had to be started on pressor support. Creatinine is elevated 2.3 which based on all of his prior levels does not quite meet the requirement for SUMAN. [facility] Medical History Atherosclerotic heart disease of [place] coronary artery without angina pectoris Cardiomyopathy Cataracts, both eyes Chest pain Congestive heart failure (CHF) CPAP (continuous positive airway pressure) dependence Dementia DM type 2 (diabetes mellitus, type 2) DVT (deep venous thrombosis) Essential hypertension Former smoker Hyperlipidemia Kidney disease NSTEMI (non-ST elevated myocardial infarction) Obesity Pericardial effusion Presence of stent in coronary artery (10/20/19) Shingles Sleep apnea Spinal stenosis Home Medications folic acid 400 mcg tablet 400 mcg PO DAILY supplement 10/19/19 [History Last Taken 09/08/21] tamsulosin 0.4 mg capsule 0.4 mg PO QHS BPH 07/02/20 [History Last Taken 09/10/21 21:00] docusate sodium 100 mg capsule (Colace) 100 mg PO BID 10/29/21 [History Last Taken Unknown] krill oil 500 mg capsule 500 mg PO DAILY 10/29/21 [History Last Taken Unknown] baclofen 10 mg tablet 10 mg PO TID PRN Muscle pain/spasm #90 tabs 11/02/21 [Rx Last Taken Unknown] cholecalciferol (vitamin D3) 50 mcg (2,000 unit) capsule 50 mcg PO DAILY 01/28/22 [History Last Taken Unknown] naloxone 0.4 mg/0.4 mL injection, auto-injector 4 mg IM PRN 05/25/22 [History Last Taken Unknown] nitroglycerin 0.4 mg sublingual tablet 0.4 mg sublingual Q5-15M PRN Chest Pain 01/05/23 [History Last Taken Unknown] albuterol sulfate 90 mcg/actuation aerosol inhaler 2 puff inhalation Q4H PRN PRN Shortness Of Breath 01/21/23 [History Last Taken Unknown] acetaminophen 500 mg tablet 1,000 mg (2 x 500 mg) PO Q8H PRN PRN Pain Score 1-3 #0 tabs 01/25/23 [Rx Last Taken Unknown] aspirin 81 mg tablet,delayed release (Adult Aspirin Regimen) 81 mg PO DAILY 03/10/23 [History Last Taken Unknown] carvedilol 3.125 mg tablet 3.125 mg PO BIDCM #180 tabs 04/07/23 [Rx Last Taken Unknown] hydrocodone-acetaminophen 5-325mg 5mg-325mg 2 tab PO DAILY PRN Pain 04/07/23 [History Last Taken Unknown] insulin glargine 100 unit/mL (3 mL) subcutaneous pen (Basaglar KwikPen U-100 Insulin) 38 unit subcut BID diabetes 04/07/23 [History Last Taken Unknown] potassium chloride 20 mEq tablet,extended release 20 meq PO BID #180 tabs 05/02/23 [Rx Last Taken Unknown] gabapentin 600 mg tablet 600 mg PO .x07/11/23 [History Last Taken Unknown] atorvastatin 40 mg tablet 40 mg PO DAILY 09/08/23 [History Last Taken Unknown] duloxetine 60 mg capsule,delayed release sprinkle (Drizalma Sprinkle) 60 mg PO DAILY 09/08/23 [History Last Taken Unknown] memantine 5 mg tablet 5 mg PO BID 11/18/23 [History Last Taken Unknown] dulaglutide 0.75 mg/0.5 mL subcutaneous pen injector (Andre) 0.75 mg subcut QWEEK 11/23/23 [History Last Taken Unknown] furosemide 40 mg tablet 40 mg PO BID 11/23/23 [History Last Taken Unknown] clopidogrel 75 mg tablet 75 mg PO DAILY #90 tabs 11/24/23 [Rx Last Taken Unknown] insulin aspart U-100 100 unit/mL subcutaneous solution (Novolog U-100 Insulin aspart) 16 unit subcut BREAKFAST 11/28/23 [History Last Taken Unknown] insulin aspart U-100 100 unit/mL subcutaneous solution (Novolog U-100 Insulin aspart) 18 unit subcut 1200,1700 11/28/23 [History Last Taken Unknown] metolazone 5 mg tablet 5 mg PO DAILY 11/28/23 [History Last Taken Unknown] Allergy/AdvReac Type Severity Reaction Status Date / Time lisinopril AdvReac cough Verified 07/11/23 10:07 Surgical History H/O knee surgery History of back surgery History of left heart catheterization (10/20/19) Presence of coronary angioplasty implant and graft (~10/20/19) Social History household members: spouse Smoking Status: Former smoker how long ago did patient quit smokin+ years used cigars ocationally alcohol intake: current alcohol intake frequency: a few times a month Alcohol type: beer substance use type: does not use caffeine: No ROS Constitutional Constitutional: Reports chills, fatigue and fever(s); Denies malaise Eyes Eyes: Denies blurry vision ENT HEENT: Denies headache(s) or nasal discharge Cardiovascular Cardiovascular: Reports chest pain; Denies dyspnea on exertion or syncope Respiratory/Chest Respiratory/Chest: Reports shortness of breath at rest and shortness of breath with exertion; Denies cough Gastrointestinal Gastrointestinal: Reports diarrhea; Denies constipation, nausea or vomiting Genitourinary Genitourinary: Denies dysuria Neurologic Neurologic: Denies focal weakness, numbness or tremor(s) Psychiatric Psychiatric: Denies anxiety or depression Vital Signs Vital Signs Vital Signs: 11/28/23 03:41 11/28/23 04:05 11/28/23 04:47 Temperature 98.3 F Temperature Source Oral Pulse Rate 120 H 112 H Pulse Strength Respiratory Rate 38 H 23 H Respiratory Effort Respiratory Depth Respiratory Pattern Blood Pressure 163/111 H 83/64 L Blood Pressure Mean 128 70 Blood Pressure Source Blood Pressure Position Blood Pressure Location Pulse Ox 84 88 92 Oxygen Delivery Method Room Air Nasal Cannula Nasal Cannula Oxygen Flow Rate (L/min) 4 5 Fraction of Inspired Oxygen (FIO2) 11/28/23 05:00 11/28/23 04:42 11/28/23 05:42 Temperature 98.3 F 103.5 F H Temperature Source Oral Core Pulse Rate 103 H 112 H 99 Pulse Strength Respiratory Rate 38 H 23 H 30 H Respiratory Effort Respiratory Depth Respiratory Pattern Blood Pressure 86/54 L 83/64 L 87/59 L Blood Pressure Mean 64 70 68 Blood Pressure Source Monitor Blood Pressure Position Semi-Fowlers Blood Pressure Location Left Arm Pulse Ox 92 88 94 Oxygen Delivery Method Nasal Cannula Nasal Cannula Bi-pap Oxygen Flow Rate (L/min) 5 4 Fraction of Inspired Oxygen (FIO2) 11/28/23 05:30 11/28/23 05:15 11/28/23 05:30 Temperature 102.2 F H 103.4 F H Temperature Source Core Core Pulse Rate 100 99 98 Pulse Strength Respiratory Rate 30 H 29 H 30 H Respiratory Effort Respiratory Depth Respiratory Pattern Tachypnea Blood Pressure 85/68 L 87/59 L Blood Pressure Mean 73 68 Blood Pressure Source Blood Pressure Position Blood Pressure Location Pulse Ox 92 93 93 Oxygen Delivery Method Nasal Cannula Bi-pap Oxygen Flow Rate (L/min) 5 Fraction of Inspired Oxygen (FIO2) 40 40 11/28/23 06:00 11/28/23 05:45 11/28/23 06:15 Temperature 103.4 F H 103.5 F H 103.2 F H Temperature Source Core Core Core Pulse Rate 96 101 H 102 H Pulse Strength Respiratory Rate 29 H 30 H 29 H Respiratory Effort Respiratory Depth Respiratory Pattern Blood Pressure 91/61 92/64 96/68 Blood Pressure Mean 71 73 77 Blood Pressure Source Blood Pressure Position Blood Pressure Location Pulse Ox 94 94 94 Oxygen Delivery Method Bi-pap Bi-pap Bi-pap Oxygen Flow Rate (L/min) Fraction of Inspired Oxygen (FIO2) 40 40 40 11/28/23 06:27 11/28/23 06:42 11/28/23 06:54 Temperature 103.2 F H 103.0 F H Temperature Source Core Core Pulse Rate 106 H 98 Pulse Strength Respiratory Rate 29 H 28 H Respiratory Effort Respiratory Depth Respiratory Pattern Blood Pressure 90/70 99/72 Blood Pressure Mean 76 81 Blood Pressure Source Blood Pressure Position Blood Pressure Location Pulse Ox 95 95 94 Oxygen Delivery Method Bi-pap Bi-pap Nasal Cannula Oxygen Flow Rate (L/min) 5 Fraction of Inspired Oxygen (FIO2) 40 40 11/28/23 07:21 11/28/23 07:00 11/28/23 07:53 Temperature 102.4 F H Temperature Source Core Pulse Rate 99 90 101 H Pulse Strength Respiratory Rate 27 H 26 H 24 H Respiratory Effort Respiratory Depth Respiratory Pattern Tachypnea Blood Pressure 81/52 L 77/53 L Blood Pressure Mean 61 61 Blood Pressure Source Monitor Blood Pressure Position Semi-Fowlers Blood Pressure Location Left Arm Pulse Ox 96 95 95 Oxygen Delivery Method Room Air Bi-pap Oxygen Flow Rate (L/min) Fraction of Inspired Oxygen (FIO2) 40 11/28/23 07:57 11/28/23 08:00 11/28/23 08:30 Temperature 102.3 F H 102.1 F H 101.6 F H Temperature Source Core Core Pulse Rate 94 104 H 99 Pulse Strength Respiratory Rate 24 H 24 H 28 H Respiratory Effort Respiratory Depth Respiratory Pattern Blood Pressure 82/64 L 81/64 L 93/64 Blood Pressure Mean 70 69 73 Blood Pressure Source Monitor Blood Pressure Position Semi-Fowlers Blood Pressure Location Left Arm Pulse Ox 94 98 95 Oxygen Delivery Method Bi-pap Nasal Cannula Oxygen Flow Rate (L/min) 6 Fraction of Inspired Oxygen (FIO2) 11/28/23 08:43 11/28/23 08:45 11/28/23 09:00 Temperature Temperature Source Pulse Rate 97 Pulse Strength Weak (1+) Respiratory Rate 24 H Respiratory Effort Respiratory Depth Respiratory Pattern Blood Pressure 75/57 L 105/59 L Blood Pressure Mean 63 74 Blood Pressure Source Blood Pressure Position Blood Pressure Location Pulse Ox 91 Oxygen Delivery Method Nasal Cannula Oxygen Flow Rate (L/min) 6 Fraction of Inspired Oxygen (FIO2) 11/28/23 09:15 11/28/23 09:30 11/28/23 09:45 Temperature Temperature Source Pulse Rate Pulse Strength Respiratory Rate Respiratory Effort Respiratory Depth Respiratory Pattern Blood Pressure 105/58 L 94/50 L 85/49 L Blood Pressure Mean 73 64 61 Blood Pressure Source Blood Pressure Position Blood Pressure Location Pulse Ox Oxygen Delivery Method Oxygen Flow Rate (L/min) Fraction of Inspired Oxygen (FIO2) 11/28/23 10:00 11/28/23 10:15 11/28/23 09:00 Temperature 101.4 F H Temperature Source Core Pulse Rate 115 H Pulse Strength Respiratory Rate 30 H Respiratory Effort Normal Non-Labored Respiratory Depth Shallow Respiratory Pattern Tachypnea Blood Pressure 137/102 H 152/126 H Blood Pressure Mean 113 134 Blood Pressure Source Blood Pressure Position Blood Pressure Location Pulse Ox 95 Oxygen Delivery Method Nasal Cannula Nasal Cannula Oxygen Flow Rate (L/min) 6 6 Fraction of Inspired Oxygen (FIO2) 11/28/23 10:30 11/28/23 10:45 Temperature Temperature Source Pulse Rate Pulse Strength Respiratory Rate Respiratory Effort Respiratory Depth Respiratory Pattern Blood Pressure 142/121 H 73/50 L Blood Pressure Mean 128 57 Blood Pressure Source Blood Pressure Position Blood Pressure Location Pulse Ox Oxygen Delivery Method Oxygen Flow Rate (L/min) Fraction of Inspired Oxygen (FIO2) Weight Weight: 267 lb 3.204 oz Body Mass Index (BMI) 40.6 Physical Exam Narrative General: Alert, Oriented x3, Cooperative, No apparent distress HEENT: Atraumatic, PERRLA, EOMI, Normocephalic Oral: Dry mucosa Neck: Supple, No JVD Lungs: Diminished, Normal air movement, No rhonchi, No wheeze, No rales Cardiovascular: Irregular rate and rhythm, Normal S1, Normal S2, No murmurs Abdomen: Soft, Non Tender, Non-Distended, No Hepato-splenomegaly Extremities: No edema, Capillary Refill Less than 3 Seconds Skin: No rashes, No breakdown Musculoskeletal: No Tenderness to Palpation of Joints or Extremities Neurological: No focal neurological deficits, Motor Exam 5/5 strength throughout, Sensory exam intact to light touch and pain Psych/Mental Status: Flat Results Lab / Micro Data 11/28/23 03:52 11/28/23 03:52 Labs: Laboratory Results - last 24 hr 11/28/23 03:47: POC Glucose 140 H 11/28/23 03:52: WBC 17.1 H, RBC 5.34, Hgb 16.9 H, Hct 53.9, MCV 100.9 H, MCH 31.6, MCHC 31.4 L, RDW Std Deviation 59.8 H, RDW Coeff of Susan 16.1 H, Plt Count 163, MPV 10.8, Immature Gran % (Auto) 2.000 H, Neut % (Auto) 95.9 H, Lymph % (Auto) 1.1 L, Phelps % (Auto) 0.2, Eos % (Auto) 0.3, Baso % (Auto) 0.5, Absolute Neuts (auto) 16.4 H, Absolute Lymphs (auto) 0.18 L, Nucleated RBC % 0.5, Differential Comment SCANNED, Atypical Lymphocytes 1+, PT 21.5 H, INR 1.9, APTT 53.4 H, D-Dimer Quant (PE/DVT) > 20.00 H*, Sodium 140, Potassium 3.1 L, Chloride 103, Carbon Dioxide 24.0, Anion Gap 13, BUN 22 H, Creatinine 2.30 H, Estim Creat Clear Calc 32.03, Est GFR (MDRD) Af Amer 35 L, Est GFR (MDRD) Non-Af 29 L, BUN/Creatinine Ratio 9.6 L, Glucose 136 H, Calcium 8.9, Troponin I High Sens 74, B-Natriuretic Peptide 130.6 H 11/28/23 04:10: Lactic Acid 7.3 H* 11/28/23 06:20: Troponin I High Sens 118 H 11/28/23 08:15: Lactic Acid 4.1 H* 11/28/23 08:55: POC Glucose 77 Micro: Microbiology 11/28/23 04:10 Mucosa - Nasopharyngeal SARS-CoV-2, Influenza & RSV (PCR) - Final ABG Data ABG results: ABG 11/28/23 05:17 Specimen Type ART Sample Site L Radial pH 7.44 Bicarbonate Actual 21.1 L Total CO2 22 Base Excess -3 L O2 Saturation 94 L O2 % 5.0 ABG pCO2 31.3 L ABG pO2 67 L Jose Test Positive O2 Delivery Device Cannula Vent Mode Not entered Imaging Radiology Impression Chest X-Ray 11/28/23 03:53 IMPRESSION: 1. Pulmonary hypoinflation with new moderate wedge-shaped opacity in the medial right lung base and new completely obscured visualization of the left hemidiaphragm. 2. Considerations include atelectasis, infiltrate and infarct. Electronically Signed: Eladia North MD at 5:16 EST , Chest CTA 11/28/23 06:41 IMPRESSION: 1. No evidence of PE. Normal aortic caliber. 2. Mild to moderate pericardial effusion, especially posterior to the heart. Advanced coronary artery calcifications and suspected stents. 3. Mediastinal lipomatosis and borderline mediastinal lymph nodes. 4. Bilateral dependent mild lung opacities and slight perihilar opacities. Electronically Signed: Eladia North MD at 7:39 EST Reading Location ID and State: [facility] / [place] Tel , Service support , Assessment & Plan Assessment/Plan (1) Atrial fibrillation: (2) Septic shock: (3) Pneumonia: PLAN: Plan 1. Septic shock secondary to community-acquired pneumonia leading to demand ischemia with an elevated troponin and new onset atrial fibrillation ? Continue with broad-spectrum antibiotics ? Continue with IV fluids being cognizant of his history of chronic combined heart failure ? Continue with pressor support ? Appreciate dip guider stoves assistance ? Culture data is pending ? Given the demand ischemia most pericardial effusion seen on CT scan secondary to an elevated D-dimer, will obtain an echocardiogram 2. Essential HTN/HLD/chronic combined systolic and diastolic heart failure ? Will obtain an echocardiogram ? Will hold his home blood pressure medication secondary to septic shock ? We will monitor make adjustments as necessary ? Repeat echo is pending 3. DM2 ? Hold his home medications ? Insulin ? Accu-Cheks ? We will monitor make adjustments as necessary 4. Dementia/anxiety/depression ? Appears to be at baseline ? Can resume his memantine 5. BPH ? Stable ? Will hold Flomax until off of pressors DVT: Heparin Sepsis Attestation Sepsis Attestation: Agree w/Sepsis Date exam was performed: 11/28/23 Time exam was performed: 08:20 Possible Source of Sepsis: Pulmonary Sepsis Organ Dysfunction Criteria Present: SBP < 90 mmHg or MAP < 65 mmHg, INR > 1.5 or aPTT > 60 sec and Lactic Acid > 2 mmol/L Fluid Resuscitation Fluid resuscitation indicated?: Yes Fluid Resuscitation ordered: 30 ml/kg fluid bolus ordered Sepsis Note Date exam was performed: 11/28/23 Time exam was performed: 11:23 Sepsis Attestation: Sepsis re-evaluation was performed Response to fluids: Non Fluid responsive hypotension and Vasopressors started Charges/Coding Visit Charges Inpatient E&M: 25092 Init Hosp L3
--- NOTE | 2023-11-28 12:05 | CASEMGMT ---
RN CM Face to Face with patient for initial transition planning/care coordination assessment. RN CM introduced self and role at [facility]. Patient lying in bed, confused, at bedside. willing to participate in assessment and is able to answer all questions appropriately. Care providers, pharmacy, and demographics verified. states that at recent PCP, Dr. Nguyen recommended [facility], patient states she is concerned about patient and her safety. SW and hospitalist notified. states she has no further needs or concerns at this time. CM to follow for discharge planning needs that may arise. PCP: Wendy Specialists: Teo, neurologist; Rivera, pain; Terese Gudino, chip applying machine tender; [facility], low raw sugar cutter; Coni, public health aides teacher. Preferred Pharmacy: [facility] Insurance: [facility] Time Warden Prescription Benefit: yes Living Will/HPOA: none LNOK: Living Arrangements: Patient lives with in a first floor apartment with no steps. Patient is independent at home but due to dementia refuses to bath. Transportation: self DME/HHC: Patient has shower chair, raised toilet, cane, walker, grab bars at home. Patient has been to TCU in the past. Patient has had [facility] in the past. Disposition Plan: TBD, will monitor course of treatment and progress with therapy. Susy MOSS, RN, CM
[2023-11-28] MEDS: 0.9 % NaCl (Sterile) Posiflush 10 mL IV (13:30)
--- NOTE | 2023-11-28 13:30 | RAD_ITS ---
STUDY: X-RAY CHEST REASON FOR EXAM: Male, 78 years old. PICC line TECHNIQUE: Single AP portable view of the chest. COMPARISON: Comparison is made with prior study dated November 28, 2023 at 4:14 AM. FINDINGS: Right-sided PICC line catheter is in place with the tip at the junction of the superior vena cava and right atrium. EKG electrodes are seen. Elevation of the right hemidiaphragm. There is been improved aeration of both lung bases as compared to prior study. There is no demonstrated pleural abnormality. There is moderate cardiac enlargement. Normal mediastinum and gio. Normal visualized pulmonary arteries. Normal visualized aortic arch and descending thoracic aorta. There are diffuse degenerative changes of the visualized thoracic spine. Normal visualized ribs, clavicles, and shoulders. I suspect a hiatal hernia. RAD/CXR for Line Placement IMPRESSION: Cardiomegaly. The tip of the right PICC line catheter is at the junction of the superior vena cava and right atrium. There has been improved aeration of both lung bases as compared to prior study. Electronically Signed: Kale Rodrigez MD at 14:21 EST ,
[2023-11-28] MEDS: Heparin Injection (Vial) 5,000 UNIT/ML VIAL 5000 UNIT SC ×2 (13:46→20:01)
[2023-11-28] MEDS: Piperacil/Tazobactam 3.375 GM in 0.9% Normal Saline (50mL MB+) 50 ML IV ×2 (13:46→20:12)
[2023-11-28] MEDS: Acetaminophen 325 MG Tablet 650 MG PO (13:58)
--- NOTE | 2023-11-28 14:09 | PRO.PCM_ITS ---
Procedure Report Date of Procedure: 11/28/23 Assessment & Plan Assessment/Plan (1) Septic shock: Procedures Radiology Radiology Access Procedures: PICC Procedure Time Out Time Out Informed consent given: Yes Consent signed: Yes Time out checklist: patient, procedure, site marked/identified, positioning of patient, supplies available and allergies confirmed Time out staff in room: Yes Time out verified: Yes Time out date: 11/28/23 Time out time: 12:42 PICC Line Consent Screening tool completed:: Yes Consent obtained:: Yes Consent given by (patient or responsible libertarian):: Line successful (if no, document why in comments):: Yes Insertion Reason for Insertion: Poor Venous Access (LEVO) Date of Insertion: 11/28/23 Ok to use: Yes Type of PICC inserted: Dual Power PICC PICC Lot #: [id number] PICC Reference #: [id number] Microintroducer Used: Yes (in kit) Ultrasound/Equipment Used: Probe Cover Kit Trimmed Length (cm): 46 Insertion Length (cm): 46 Exposed Length (cm): 0 Tip Placement: SVC (Superior Vena Cava) Placement Confirmation: Xray Insertion Vein: Right Brachial Insertion Attempts: 1 Local Anesthesia Used: Lidocaine 1% (in kit) Dressing Applied: Statlock and Tegaderm CHG Arm Measurement above site (in cm): 35 Patient Tolerated Procedure: Fair Threading Difficulties: No Comments Comment: Patient identity was verified with two patient identifiers. Informed consent was obtained and time-out was completed. Hands were sanitized. The patient was positioned supine with right arm at 90 degrees. The patient's upper arm vasculature was assessed using ultrasound, and the right brachial vein was externally marked. An external measurement was obtained of 46 cm. External leads were applied to the patient's right upper chest and laterally and inferior of the umbilicus on the mid axillary line. Cap, mask, and prep gloves were donned. The underdrape was placed under the patient's arm. The site was prepped with chlorhexidine, and tourniquet was loosely applied. Prep gloves were discarded, and hands were sanitized. The sterile kit was opened with additional supplies dropped in. Sterile gown and gloves were donned, and the patient was draped. The sterile kit was assembled with all needle, introducer, connector, and catheter flushed with sterile normal saline. The marked site of insertion was anesthetized with 1% lidocaine. Patient tolerated well. The right brachial vein was then accessed using ultrasound guidance and guidewire was inserted to safety yung. The tourniquet was released. The access needle was removed while securing the guidewire in place. The site was again anesthetized with 1% lidocaine, prior to insertion of introducer sheath and dilator. Patient tolerated well. The catheter was trimmed to a length of 46 cm. Using 3C guidance, the catheter was then inserted through the introducer sheath, slowly. There was no resistance on insertion to the full length of 46 cm, leaving 0 cm external. The introducer sheath was retracted and peeled away, incrementally, while keeping the catheter secured. The stylet was removed. A flushed needleless connector was attached to each lumen. Blood return was verified and each lumen was flushed with sterile normal saline in a pulsatile fashion. Total sterile flushes used for the insertion was 6 10 ml syringes. Finally, the insertion site was cleaned with chlorhexidine, and the catheter was secured using a StatLock. The site was covered with a Tegaderm CHG Dressing. Baseline arm circumference was obtained at the insertion site and measured 36 cm. The patient was becoming restless towards the end of the PICC insertion, creating artifact using the 3 CG technology. Therefore, a chest x-ray was obtained to verify proper PICC plac ement. The chest x-ray does confirm that the PICC line is at the level of the cavoatrial junction. The primary nurse is aware that the PICC line is ready for use.
[2023-11-28] MEDS: QUEtiapine 25 MG Tablet 50 MG PO (16:43)
[2023-11-28 17:24] LABS: Bedside Glucose 105 mg/dL (74-106)
[2023-11-28 17:56] LABS: Allen Test Positive; Base Excess -12 mmol/L (-2 to +2); Bicarbonate 16.1 mmol/L (22-26); Blood Gas Specimen Type ART; Mode Not entered; O2 Delivery Device Cannula; PO2 58 mmHG (75-100); SITE L Radial; SO2 82 % (95-99); Time Given 17:54:34; Total Carbon Dioxide 17 mmol/L; pCO2 42.4 mmHg (35-45); pH 7.19 (7.35-7.45)
[2023-11-28] MEDS: Etomidate 20 MG/10 ML Vial IV (18:20)
[2023-11-28] MEDS: Midazolam 2 MG/2 ML Syringe 4 MG IV (18:20)
[2023-11-28] MEDS: Propofol 10MG/Ml 1,000 MG/100 ML Bottle 7.29999999999999982 MG CONT INF (18:23)
[2023-11-28] MEDS: fentaNYL drip 100 ML 5 MCG CONT INF (18:23)
[2023-11-28] MEDS: Norepinephrine 8 MG in 0.9% Normal Saline (250mL Bag) 242 ML 28.1000000000000014 MG CONT INF (18:30)
--- NOTE | 2023-11-28 18:30 | RAD_ITS ---
STUDY: X-RAY CHEST REASON FOR EXAM: Male, 78 years old. ETT and OG placement TECHNIQUE: Single AP portable view of the chest. COMPARISON: November 28, 2023 FINDINGS: Endotracheal tube, 3 cm above the melodie. Feeding tube extends to the stomach in the upper abdomen. PICC on the right extends to the superior vena cava. There are stable left greater than right mid and lower lung increased opacities. There is left pleural thickening or small effusion. There is moderate cardiac enlargement. Normal mediastinum and gio. Normal visualized pulmonary arteries. Normal visualized aortic arch and descending thoracic aorta. Normal visualized thoracic spine. Normal visualized ribs, clavicles, and shoulders. There is no demonstrated abnormality of the visualized soft tissue structures of the upper abdomen. RAD/CXR for Line Placement IMPRESSION: Endotracheal tube and feeding tube placement. Stable lower lung atelectasis or infiltrates. Electronically Signed: John Oviedo MD at 19:31 [facility] ,
--- NOTE | 2023-11-28 18:30 | NURSING ---
1821 #8.0 ETT, 24 @ lip, positive color change and bilateral breath sounds, OG inserted, CXR called
--- NOTE | 2023-11-28 19:17 | PCM.HOSP.N ---
Hospitalist Note Intubation Indication: Respiratory failure, metabolic encephalopathy The patient was placed in the appropriate sniffing position. Preoxygenated sedation via [id number] was provided for a minimum of 3 minutes. The patient had continuous cardiac as well as pulse oximetry monitoring during the procedure. Procedure sedation was provided by the administration of 2 mg of Versed and 20 mg of etomidate. Direct laryngoscopy was then performed using a number 4 MAC blade. A 8.0 mm endotracheal tube was visualized advancing between the cords to the level of 24 cm at the lip. The stylette was then removed and discarded. Tube placement was confirmed by fogging in the tube along with equal and bilateral breath sounds. Colorimetric change was visualized on the CO2 meter. The cuff was then inflated and the tube secured using a commercially available device. A good pulse oximetry waveform was seen on the monitor throughout the procedure. A portable chest x-ray has been ordered to confirm appropriate placement. The patient tolerated the procedure well. Procedures Pulmonary 9xxxx: [id number] Insert emergency airway
[2023-11-28 19:44] LABS: Allen Test Positive; Base Excess -9 mmol/L (-2 to +2); Bicarbonate 17.2 mmol/L (22-26); Blood Gas Specimen Type ART; Mode AC; O2 Delivery Device ET Tube; PEEP 5; PO2 106 mmHG (75-100); RR 14; SITE R Radial; SO2 97 % (95-99); Total Carbon Dioxide 18 mmol/L; pH 7.29 (7.35-7.45)
[2023-11-28] MEDS: Vasopressin 20 UNITS in 0.9% Normal Saline (50mL Bag) 24 ML 3 UNITS CONT INF (20:01)
[2023-11-28] MEDS: Atorvastatin Calcium 40 MG Tablet PO (20:01)
[2023-11-28] MEDS: Memantine Hydrochloride 5 MG Tablet PO (20:01)
[2023-11-28] MEDS: Chlorhexidine 15 ML PO (20:01)
[2023-11-28 20:30] LABS: Bedside Glucose 98 mg/dL (74-106)
[2023-11-28] MEDS: Norepinephrine 8 MG in 0.9% Normal Saline (250mL Bag) 242 ML 56.2999999999999972 MG CONT INF (23:04)
[2023-11-29] VITALS (41 sets, daily range): BP systolic 75–107; BP diastolic 49–77; PULSE 100–126; RESP 11–22; TEMP 37.5–39.3; O2SAT 14–106; BMI 41.3
[2023-11-29] MEDS: Vasopressin 20 UNITS in 0.9% Normal Saline (50mL Bag) 24 ML 3 UNITS CONT INF ×3 (01:21→17:18)
[2023-11-29] MEDS: fentaNYL drip 100 ML 15 MCG CONT INF ×4 (01:21→22:53)
[2023-11-29 03:11] LABS: Absolute Lymphocyte Count 0.97 X10^3/uL (0.83-4.51); Absolute Neutrophil Count 27.7 X10^3/uL (2.0-7.7); Basophil# 0.18 X10^3/uL; Basophil% 0.5 % (0-1); Eosinophil# 5.31 X10^3/uL; Eosinophils% 14.1 % (0-5); Hemoglobin 14.7 g/dL (13.0-16.5); Lymphocyte # 0.97 X10^3/ul (0.83-4.51); Lymphocyte % 2.6 % (19-41); Mean Corpuscular Hgb 32.2 pg (27.0-32.0); Mean Corpuscular Volume 100.9 fL (80-94); Mean Platelet Vol. 10.9 fl (6.2-12.0); Monocyte# 1.43 X10^3/uL; Monocyte% 3.8 % (0-10); NRBC Flagged by Analyzer 0.2 % (0-5); Neutrophil # 27.67 X10^3/uL (2.7-7.7); Neutrophil % 73.3 % (47-70); POSITIVE COUNT YES; POSITIVE DIFFERENTIAL YES; POSITIVE MORPHOLOGY YES; Platelet Count 145 K/mm3 (150-450); RBC Distribution Width CV 16.3 % (11.6-14.6); Red Blood Count 4.56 M/mm3 (4.6-6.2); White Blood Count 37.7 K/mm3 (4.4-11.0)
[2023-11-29 03:18] LABS: Differential Indicated SCAN CRITERIA MET
[2023-11-29] MEDS: Norepinephrine 8 MG in 0.9% Normal Saline (250mL Bag) 242 ML 56.2999999999999972 MG CONT INF ×3 (03:42→12:50)
[2023-11-29 03:43] LABS: ALB/GLOB Ratio 0.8 RATIO (0.9-2.4); AST(SGOT) 446 U/L (15-37); Alanine Aminotransfer ALT/SGPT 194 U/L (16-61); Albumin, Serum 2.4 g/dL (3.2-5.0); Alkaline Phosphatase 53 U/L (45-117); Anion Gap 12 (5-15); BUN 42 mg/dL (7-18); BUN/Creat Ratio 11.7 RATIO (10-20); Calcium,Total 7.4 mg/dL (8.5-10.1); Chloride 110 mmol/L (98-107); Creatinine, Serum 3.59 mg/dL (0.70-1.30); EST Glomerular Filtration Rate 17 mL/min (>60); Est Glom Filt Rate - Afr Amer 21 mL/min (>60); Estimated Creatinine Clearance 20.99 ml/min; Globulin 3.1 g/dL (2.2-4.2); Glucose 129 mg/dL (74-106); Potassium 5.1 mmol/L (3.5-5.1); Protein, Total 5.5 g/dL (6.4-8.2); Sodium Level 140 mmol/L (136-145)
[2023-11-29] MEDS: Vancomycin HCl 1,500 MG in 0.9% Normal Saline (500mL Bag) 500 ML 250 MG IV (04:40)
[2023-11-29] MEDS: Propofol 10MG/Ml 1,000 MG/100 ML Bottle 3.60000000000000009 MG CONT INF (05:45)
[2023-11-29] MEDS: CHLORHEXIDINE GLUC 2% CLOTH 1 EACH TOWELETTE TOPICAL (05:45)
[2023-11-29] MEDS: Heparin Injection (Vial) 5,000 UNIT/ML VIAL 5000 UNIT SC ×3 (05:45→19:47)
--- NOTE | 2023-11-29 06:17 | PN.CC_ITS ---
Assessment & Plan Assessment/Plan (1) Septic shock: PLAN: Plan RECOMMENDATIONS: 1. Continue vasopressor support in an attempt to maintain hemodynamic stability. 2. Continue broad-spectrum antibiotics. Obtain infectious diseases consultation. 3. Initiate stress dose steroids as ordered. 4. Check coagulation profile. 5. Obtain CT abdomen/pelvis. 6. Continue current sedation regimen. 7. Continue appropriate DVT and GI prophylaxis. 8. Obtain nephrology consultation. 9. Initiate tube feeding when feasible. IMPRESSIONS: 1. Gram-negative septic shock The patient presented with gram-negative septic shock with acute sepsis related organ dysfunction as evidenced by lactic acidemia, acute kidney injury and fluid refractory hypotension, requiring vasopressor support. There is concern for possible underlying pneumonia and/or genitourinary source of infection. The patient will be maintained on broad-spectrum antimicrobials. In addition, he will be maintained on vasopressor support along with stress dose steroids, and an attempt to maintain hemodynamic stability. The patient has developed multisystem organ failure. Will plan to obtain CT abdomen/pelvis and continue current supportive care. ID consultation will be obtained. Overall prognosis is poor. 2. Acute hypoxemic respiratory failure The patient was intubated on November 28 after he failed to compensate for his worsening metabolic acidosis. The patient will be continued on assist-control mode mechanical ventilation. FiO2 and PEEP will be weaned as tolerated. The patient will be continued on empiric antibiotics as well. 3. Troponin elevation/pericardial effusion/atrial fibrillation Clinical concern for demand ischemia in the setting of #1. Echocardiogram revealed a depressed ejection fraction with evidence of pericardial effusion, without tamponade. 4. Acute on chronic kidney disease Most likely prerenal in etiology in setting #1, with progression to ischemic ATN. Urine output has dropped precipitously. The patient will be continued on vasopressor support to maintain hemodynamic stability. Will obtain nephrology consultation today. 5. History of coronary artery disease/heart failure with preserved ejection fraction/diabetes mellitus/dementia Complicates care, management, recovery and prognosis. Continue supportive care as noted above. The patient will be continued on appropriate GI and DVT prophylaxis. Plan to initiate tube feeding when feasible. TIME: 40 minutes of critical care time, independent of procedures, was spent addressing the patient's gram-negative septic shock, acute hypoxemic respiratory failure, troponin elevation/pericardial effusion, acute on chronic kidney dise ase, review of all data and collaboration with the care team. Subjective Subjective The patient was seen and examined at the bedside this morning. Events from the last 24 hours have been reviewed. The patient remains febrile with a Tmax last evening of 104.3 ?F. Last night, the patient required intubation due to failed compensation for his underlying metabolic acidosis. The patient is now requiring high-dose Levophed and vasopressin to maintain hemodynamic stability. The patient is documented to be overall net +4.8 L for the hospitalization. White count is elevated at 37,000 with a platelet count of 145,000. Creatinine has increased to 3.59. Total bilirubin is increased to 2.9 with an AST of 446 and ALT of 194. Objective Data Objective Data The patient's most recent lab work, culture data and imaging studies have all been personally reviewed. Surface echocardiogram demonstrated normal LV size with an ejection fraction of 40% and mild to moderate global hypokinesis of the LV. There was a moderate pericardial effusion without any indication of cardiac tamponade. Preliminary blood culture dated November 28 was positive for gram- negative rods. Vital Signs: Vital Signs Temp Pulse Resp BP Pulse Ox O2 Del Method O2 Flow Rate 101 F H 110 H 14 98/49 L 99 Mechanical Ventilator 6 11/29/23 06:00 11/29/23 06:00 11/29/23 06:00 11/29/23 06:00 11/29/23 06:00 11/29/23 06:00 11/28/23 18:00 FiO2 35 11/29/23 06:00 Oxygen Flow Rate (L/min) 6 Oxygen Delivery Method Mechanical Ventilator Weight: 272 lb 4.334 oz Body Mass Index (BMI) 41.3 Intake & Output: Intake and Output for Last 24 Hours 11/27/23 11/28/23 11/29/23 23:59 23:59 23:59 Intake Total 4441.74 / 4510.19 562.99 / 562.99 Output Total 90 / 90 50 / 50 Balance 4351.74 / 4420.19 512.99 / 512.99 Lab / Micro Data Attestation: I reviewed the patient's lab results. 11/29/23 03:00 11/29/23 03:00 Labs: Laboratory Results - last 24 hr 11/28/23 03:52: PT 21.5 H, INR 1.9, APTT 53.4 H, D-Dimer Quant (PE/DVT) > 20.00 H*, B-Natriuretic Peptide 130.6 H 11/28/23 06:20: Troponin I High Sens 118 H 11/28/23 08:15: Lactic Acid 4.1 H* 11/28/23 08:55: POC Glucose 77 11/28/23 16:42: POC Glucose 105 11/28/23 20:04: POC Glucose 98 11/29/23 03:00: WBC 37.7 H*, RBC 4.56 L, Hgb 14.7, Hct 46.0, MCV 100.9 H, MCH 32.2 H, MCHC 32.0, RDW Std Deviation 61.0 H, RDW Coeff of Susan 16.3 H, Plt Count 145 L, MPV 10.9, Immature Gran % (Auto) 5.700 H, Neut % (Auto) 73.3 H, Lymph % (Auto) 2.6 L, Gonzales % (Auto) 3.8, Eos % (Auto) 14.1 H, Baso % (Auto) 0.5, Absolute Neuts (auto) 27.7 H, Absolute Lymphs (auto) 0.97, Nucleated RBC % 0.2, Diff Path Review February, Sodium 140, Potassium 5.1, Chloride 110 H, Carbon Dioxide 18.0 L, Anion Gap 12, BUN 42 H, Creatinine 3.59 H, Estim Creat Clear Calc 20.99, Est GFR (MDRD) Af Amer 21 L, Est GFR (MDRD) Non-Af 17 L, BUN/Creatinine Ratio 11.7, Glucose 129 H, Calcium 7.4 L, Total Bilirubin 2.90 H, AST 446 H, ALT 194 H, Alkaline Phosphatase 53, Total Protein 5.5 L, Albumin 2.4 L, Globulin 3.1, Albumin/Globulin Ratio 0.8 L Micro: Microbiology 11/28/23 04:10 Blood Culture (Wb) - Anticubital Right Blood Culture - Preliminary 11/28/23 04:10 Blood Culture (Wb) - Right Hand Blood Culture - Preliminary 11/28/23 04:10 Mucosa - Nasopharyngeal SARS-CoV-2, Influenza & RSV (PCR) - Final ABG Data ABG results: ABG 11/28/23 11/28/23 17:52 19:40 Specimen Type ART ART Sample Site L Radial R Radial pH 7.19 L* 7.29 L Bicarbonate Actual 16.1 L 17.2 L Total CO2 17 18 Base Excess -12 L -9 L O2 Saturation 82 L 97 O2 % 6.0 50.0 ABG pCO2 42.4 36.0 ABG pO2 58 L 106 H Jose Test Positive Positive Respiration Rate 14 O2 Delivery Device Cannula ET Tube Vent Mode Not entered AC Tidal Volume 450.0 POC PEEP 5 Crit Call To/Read Back Yes Blood Gas Notified Whom dr gudino Blood Gas Notified Time 17:54:34 Radiography Diagnostic Testing: Radiology Impression Chest CTA 11/28/23 06:41 IMPRESSION: 1. No evidence of PE. Normal aortic caliber. 2. Mild to moderate pericardial effusion, especially posterior to the heart. Advanced coronary artery calcifications and suspected stents. 3. Mediastinal lipomatosis and borderline mediastinal lymph nodes. 4. Bilateral dependent mild lung opacities and slight perihilar opacities. Electronically Signed: Eladia North MD at 7:39 EST Reading Location ID and State: [address] [place] [address] Tel , Service support , Echocardiogram 11/28/23 10:47 Interpretation Summary The left ventricular ejection fraction is 40 %. Normal LV size. Mild focal aortic valve calcification. Moderate pericardial effusion. There are no echocardiographic indications of cardiac tamponade. The study was technically limited. The study was technically difficult. Contrast injection was performed. Ordering Physician: Elian Gudino Referring Physician: Franklin Nguyen Performed By: Valentina West RDCS Chest X-Ray 11/28/23 13:30 IMPRESSION: Cardiomegaly. The tip of the right PICC line catheter is at the junction of the superior vena cava and right atrium. There has been improved aeration of both lung bases as compared to prior study. Electronically Signed: Kale Rodrigez MD at 14:21 EST , Chest X-Ray 11/28/23 18:30 IMPRESSION: Endotracheal tube and feeding tube placement. Stable lower lung atelectasis or infiltrates. Electronically Signed: John Oviedo MD at 19:31 EST , Physical Exam Const Constitutional Narrative: Intubated, sedated and mechanically ventilated. No ventilator dyssynchrony noted. General Appearance: ill appearing HEENT normocephalic and head/scalp atraumatic Mouth: endotracheal tube in place and OG tube in place Eyes EOMs intact bilaterally and no scleral icterus Neck supple General: trachea midline Chest inspection of chest normal Resp Resp Narrative: Mechanical breath sounds without appreciable wheezes, rales or rhonchi. Cardio S1 normal heart sound and S2 normal heart sound Rate: tachycardic Rhythm: abnormal rhythm GI normal to inspection, nondistended, normoactive bowel sounds Extremity Extremity Narrative: Dusky/cyanotic appearing distal lower extremities that are cool to the touch. Skin General Skin Exam: mottling Neuro Sensorium / Orientation: sedated on vent Charges/Coding Procedures Hospitalists Procedures: 59069 Critical Care 1st Hr
--- NOTE | 2023-11-29 06:20 | US_ITS ---
STUDY: RENAL ULTRASOUND - COMPLETE REASON FOR EXAM: Male, 78 years old. SUMAN, Septic Shock TECHNIQUE: Ultrasound evaluation of the kidneys was performed with real-time and static gonsales-scale imaging. COMPARISON: None. FINDINGS: RIGHT KIDNEY: Normal location of the right kidney, which is normal in size. The right kidney measures 12.5 cm x 5.5 cm x 6.1 cm. There is a normal cortex of the right kidney. The renal cortex measures 1.2 cm. There is no right renal mass or cyst. There are no right renal calculi. There is no right hydronephrosis. DISTAL RIGHT URETER: There is non-visualization of the distal right ureter. There is no demonstrated right ureterovesical junction calculus. There is no demonstrated right ureteral jet. LEFT KIDNEY: Normal location of the left kidney, which is normal in size. The left kidney measures 13.3 cm x 4.9 cm x 6.4 cm. There is a normal cortex of the left kidney. The renal cortex measures 2.4 cm. There is no left renal mass or cyst. There are no left renal calculi. There is no left hydronephrosis. DISTAL LEFT URETER: There is non-visualization of the distal left ureter. There is no demonstrated left ureterovesical junction calculus. There is no demonstrated left ureteral jet. BLADDER: A John catheter is seen within the urinary bladder. US/Kidney and Bladder IMPRESSION: Normal ultrasound of the kidneys. Electronically Signed: Kale Rodrigez MD at 9:32 EST ,
[2023-11-29 06:40] LABS: GGTP 96 U/L (15-85)
[2023-11-29 06:58] LABS: CPK Total, Creatine Kinase 6897 U/L (39-308); Triglycerides 177 mg/dL
[2023-11-29] MEDS: TITRATION PARAMETER CHANGE 1 EACH IV (07:00)
[2023-11-29] MEDS: Piperacil/Tazobactam 3.375 GM in 0.9% Normal Saline (50mL MB+) 50 ML IV (07:00)
--- NOTE | 2023-11-29 07:03 | CT_ITS ---
STUDY: CT ABDOMEN AND PELVIS WITHOUT CONTRAST REASON FOR EXAM: Male, 78 years old. Gram negative septic shock. RADIATION DOSAGE (If Supplied By Facility): CTDIvol = ( 24.18 ) mGy, DLP = ( 2266.55 ) mGycm TECHNIQUE: Transaxial images were obtained from the dome of the diaphragm to the symphysis pubis without oral contrast, and without intravenous contrast. Sagittal and coronal images were reconstructed. Individualized dose optimization techniques were used for this CT. COMPARISON: Comparison is made with prior study July 10, 2018. FINDINGS: Increased markings at the lung bases suggestive of bibasilar atelectasis and/or infiltrates. Minimal bilateral pleural effusions. Coronary artery calcification. Pericardial effusion worse along the posterior dependent portion of the heart. Normal liver. Distended gallbladder. Findings suggestive of stones and/or possible sludge within the gallbladder lumen. Normal spleen. Normal pancreas. Normal bilateral adrenal glands. Multiple bilateral nonobstructive intrarenal calculi. The largest calculus in the right kidney is in the anterior midpole measuring 7 mm. The largest calculus in the left kidney is in the lower pole and measures 7.9 mm. Incidental note is made of a left retroaortic renal vein. Nasogastric tube is seen within the esophagus and body of the stomach. Normal small intestine. Normal colon. The appendix is visualized and appears normal. There is diffuse atherosclerotic calcification of the abdominal aorta, without a demonstrated aneurysm. Normal inferior vena cava. Normal retroperitoneum. A John catheter is seen within the urinary bladder. The urinary bladder is collapsed. Findings suggestive of possible mass within the urinary bladder. There are prostatic calcifications. Normal abdominal wall. There are diffuse degenerative changes of the visualized lumbar spine. There is straightening of the normal lumbar lordosis. CT/Abdomen/Pel W ORAL Cont Only IMPRESSION: Small bilateral pleural effusions with bibasilar atelectasis and/or infiltrates. Coronary calcification. Pericardial effusion. Bilateral nonobstructive intrarenal calculi. Distended gallbladder with findings suggestive of a small gallstones versus sludge within the gallbladder lumen. John catheter is seen within the bladder. The bladder is collapsed with markedly thickened the appearance of the bladder. A neoplastic process should be ruled out. Electronically Signed: Kale Rodrigez MD at 11:11 EST ,
[2023-11-29] MEDS: Chlorhexidine 15 ML PO ×2 (07:36→19:47)
[2023-11-29 07:42] LABS: International Normalized Ratio 1.9; Prothrombin Time (Protime)PT. 22.2 SECONDS (11.7-14.9)
[2023-11-29] MEDS: Meropenem 1 GM in 0.9% Normal Saline (100mL MB+) 100 ML IV ×2 (07:44→19:47)
[2023-11-29] MEDS: Pantoprazole Sodium 40 MG in 0.9% Normal Saline (100mL MB+) 100 ML 330 MG IV (07:44)
--- NOTE | 2023-11-29 08:51 | PN.HOSP_ITS ---
Subjective Subjective Significant decline had to be intubated yesterday Objective Data Objective Data Vital Signs: Vital Signs Temp Pulse Resp BP Pulse Ox O2 Del Method O2 Flow Rate 101.5 F H 108 H 17 93/58 L 94 Mechanical Ventilator 6 11/29/23 08:00 11/29/23 08:00 11/29/23 08:00 11/29/23 08:00 11/29/23 08:00 11/29/23 08:00 11/28/23 18:00 FiO2 35 11/29/23 08:00 Oxygen Flow Rate (L/min) 6 Oxygen Delivery Method Mechanical Ventilator Weight: 272 lb 4.334 oz Body Mass Index (BMI) 41.3 Intake & Output: Intake and Output for Last 24 Hours 11/28/23 11/29/23 11/30/23 03:59 03:59 03:59 Intake Total 4826.94 / 4859.93 1027.69 / 1027.69 Output Total 90 / 90 65 / 65 Balance 4736.94 / 4769.93 962.69 / 962.69 Lab / Micro Data 11/29/23 03:00 11/29/23 03:00 Labs: Laboratory Results - last 24 hr 11/28/23 08:15: Lactic Acid 4.1 H* 11/28/23 08:55: POC Glucose 77 11/28/23 16:42: POC Glucose 105 11/28/23 20:04: POC Glucose 98 11/29/23 03:00: WBC 37.7 H*, RBC 4.56 L, Hgb 14.7, Hct 46.0, MCV 100.9 H, MCH 32.2 H, MCHC 32.0, RDW Std Deviation 61.0 H, RDW Coeff of Susan 16.3 H, Plt Count 145 L, MPV 10.9, Immature Gran % (Auto) 5.700 H, Neut % (Auto) 73.3 H, Lymph % (Auto) 2.6 L, [place] % (Auto) 3.8, Eos % (Auto) 14.1 H, Baso % (Auto) 0.5, Absolute Neuts (auto) 27.7 H, Absolute Lymphs (auto) 0.97, Nucleated RBC % 0.2, Diff Path Review May , Sodium 140, Potassium 5.1, Chloride 110 H, Carbon Dioxide 18.0 L, Anion Gap 12, BUN 42 H, Creatinine 3.59 H, Estim Creat Clear Calc 20.99, Est GFR (MDRD) Af Amer 21 L, Est GFR (MDRD) Non-Af 17 L, BUN/Creatinine Ratio 11.7, Glucose 129 H, Calcium 7.4 L, Total Bilirubin 2.90 H, GGT 96 H, AST 446 H, ALT 194 H, Alkaline Phosphatase 53, Total Creatine Kinase 6897 H, Total Protein 5.5 L, Albumin 2.4 L, Globulin 3.1, Albumin/Globulin Ratio 0.8 L, Triglycerides 177 11/29/23 07:20: PT 22.2 H, INR 1.9, APTT 54.0 H Micro: Microbiology 11/28/23 18:35 Sputum, Induced/Lukens Respiratory Culture - Preliminary Culture exhibits no growth. 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 11/28/23 04:10 Mucosa - Nasopharyngeal SARS-CoV-2, Influenza & RSV (PCR) - Final ABG Data ABG results: ABG 11/28/23 11/28/23 17:52 19:40 Specimen Type ART ART Sample Site L Radial R Radial pH 7.19 L* 7.29 L Bicarbonate Actual 16.1 L 17.2 L Total CO2 17 18 Base Excess -12 L -9 L O2 Saturation 82 L 97 O2 % 6.0 50.0 ABG pCO2 42.4 36.0 ABG pO2 58 L 106 H Jose Test Positive Positive Respiration Rate 14 O2 Delivery Device Cannula ET Tube Vent Mode Not entered AC Tidal Volume 450.0 POC PEEP 5 Crit Call To/Read Back Yes Blood Gas Notified Whom dr gudino Blood Gas Notified Time 17:54:34 Radiography Diagnostic Testing: Radiology Impression Echocardiogram 11/28/23 10:47 Interpretation Summary The left ventricular ejection fraction is 40 %. Normal LV size. Mild focal aortic valve calcification. Moderate pericardial effusion. There are no echocardiographic indications of cardiac tamponade. The study was technically limited. The study was technically difficult. Contrast injection was performed. Ordering Physician: Elian Gudino Referring Physician: Franklin Nguyen Performed By: Valentina West RDCS Chest X-Ray 11/28/23 13:30 IMPRESSION: Cardiomegaly. The tip of the right PICC line catheter is at the junction of the superior vena cava and right atrium. There has been improved aeration of both lung bases as compared to prior study. Electronically Signed: Kale Rodrigez MD at 14:21 EST , Chest X-Ray 11/28/23 18:30 IMPRESSION: Endotracheal tube and feeding tube placement. Stable lower lung atelectasis or infiltrates. Electronically Signed: John Oviedo MD at 19:31 EST , Physical Exam Const General Appearance: intubated and patient mechanically ventilated HEENT normocephalic Eyes PERRL and conjunctivae normal Neck supple and no JVD Resp normal respiratory effort, no retractions and no use of accessory muscles Auscultation: Negative for crackles, rales, rhonchi or wheezes Cardio regular rate, regular rhythm, S1 normal heart sound, S2 normal heart sound and no murmurs GI soft to palpation and non-distended; Negative for hepatosplenomegaly Extremity no clubbing, cyanosis or edema Skin no rashes or lesions noted Neuro Sensorium / Orientation: sedated on vent Psych Appearance: intubated Assessment & Plan Assessment/Plan (1) Atrial fibrillation: (2) Septic shock: (3) Pneumonia: PLAN: Plan 1. Septic shock secondary to community-acquired pneumonia leading to demand ischemia with an elevated troponin and new onset atrial fibrillation/SUMAN ? Continue with broad-spectrum antibiotics changed from Zosyn to meropenem ? Had to be intubated overnight continue with mechanical ventilation ? Continue with pressor support, vasopressin had to be added ? Appreciate foundation assistant assistance ? Culture data is pending ? Given the demand ischemia most pericardial effusion seen on CT scan secondary to an elevated D-dimer, will obtain an echocardiogram ? Renal function has climbed to 3.59 today, will consult nephrology ? Total creatine kinase is elevated to 6800 and his LFTs are also elevated consistent with ischemic damage will obtain a CT scan of his abdomen pelvis 2. Essential HTN/HLD/chronic combined systolic and diastolic heart failure ? Will obtain an echocardiogram ? Will hold his home blood pressure medication secondary to septic shock ? We will monitor make adjustments as necessary ? Repeat echo is pending 3. DM2 ? Hold his home medications ? Insulin ? Accu-Cheks ? We will monitor make adjustments as necessary 4. Dementia/anxiety/depression ? Appears to be at baseline ? Can resume his memantine 5. BPH ? Stable ? Will hold Flomax until off of pressors DVT: Heparin Charges/Coding Visit Charges Inpatient E&M: 59186 Subs Hosp L2
--- NOTE | 2023-11-29 09:45 | CON.PCM.ID_ITS ---
Assessment & Plan Assessment/Plan (1) Septic shock: PLAN: septic shock due to GNR bacteremia from unclear source - on vent, pressors. Now on vanc/jenise. CT-PE 11/28 showed no PE, only mild dependent opacities. Only on 35 FiO2. Possible abd source. Renal u/s is pending, recommend CT abd/pelvis without iv contrast. Will follow, thank you (2) Acute kidney injury superimposed on CKD: (3) Bacteremia due to Gram-negative bacteria: HPI Consult Data Date of Consult: 11/29/23 HPI Narrative Reason for Consultation: bacteremia HPI Narrative: LUCIA NEGRO, is a 78 M with dementia, CKD, DM neuropathy, CAD, lives at home with , presented early AM 11/28 due to acute onset weakness, chills, unable to get off of toilet. reports about a month of nausea and dry heaves. Had several days dry cough. No other focal complaints. In ED, pt reported chest pain, increased edema, dyspnea. Admitted to icu with septic shock, started on vanc/zosyn. BP and fever worsened, now on vanc/jenise, pressors, on vent. at bedside provided history. ROS unobtainable due to intubation. [facility] Medical History Atherosclerotic heart disease of [place] coronary artery without angina pectoris Cardiomyopathy Cataracts, both eyes Chest pain Congestive heart failure (CHF) CPAP (continuous positive airway pressure) dependence Dementia DM type 2 (diabetes mellitus, type 2) DVT (deep venous thrombosis) Essential hypertension Former smoker Hyperlipidemia Kidney disease NSTEMI (non-ST elevated myocardial infarction) Obesity Pericardial effusion Presence of stent in coronary artery (10/20/19) Shingles Sleep apnea Spinal stenosis Home Medications folic acid 400 mcg tablet 400 mcg PO DAILY supplement 10/19/19 [History Last Taken 09/08/21] tamsulosin 0.4 mg capsule 0.4 mg PO QHS BPH 07/02/20 [History Last Taken 09/10/21 21:00] docusate sodium 100 mg capsule (Colace) 100 mg PO BID 10/29/21 [History Last Taken Unknown] krill oil 500 mg capsule 500 mg PO DAILY 10/29/21 [History Last Taken Unknown] baclofen 10 mg tablet 10 mg PO TID PRN Muscle pain/spasm #90 tabs 11/02/21 [Rx Last Taken Unknown] cholecalciferol (vitamin D3) 50 mcg (2,000 unit) capsule 50 mcg PO DAILY 01/28/22 [History Last Taken Unknown] naloxone 0.4 mg/0.4 mL injection, auto-injector 4 mg IM PRN 05/25/22 [History Last Taken Unknown] nitroglycerin 0.4 mg sublingual tablet 0.4 mg sublingual Q5-15M PRN Chest Pain 01/05/23 [History Last Taken Unknown] albuterol sulfate 90 mcg/actuation aerosol inhaler 2 puff inhalation Q4H PRN PRN Shortness Of Breath 01/21/23 [History Last Taken Unknown] acetaminophen 500 mg tablet 1,000 mg (2 x 500 mg) PO Q8H PRN PRN Pain Score 1-3 #0 tabs 01/25/23 [Rx Last Taken Unknown] aspirin 81 mg tablet,delayed release (Adult Aspirin Regimen) 81 mg PO DAILY 03/10/23 [History Last Taken Unknown] carvedilol 3.125 mg tablet 3.125 mg PO BIDCM #180 tabs 04/07/23 [Rx Last Taken Unknown] hydrocodone-acetaminophen 5-325mg 5mg-325mg 2 tab PO DAILY PRN Pain 04/07/23 [History Last Taken Unknown] insulin glargine 100 unit/mL (3 mL) subcutaneous pen (Basaglar KwikPen U-100 Insulin) 38 unit subcut BID diabetes 04/07/23 [History Last Taken Unknown] potassium chloride 20 mEq tablet,extended release 20 meq PO BID #180 tabs 05/02/23 [Rx Last Taken Unknown] gabapentin 600 mg tablet 600 mg PO .6xday 07/11/23 [History Last Taken Unknown] atorvastatin 40 mg tablet 40 mg PO DAILY 09/08/23 [History Last Taken Unknown] duloxetine 60 mg capsule,delayed release sprinkle (Drizalma Sprinkle) 60 mg PO DAILY 09/08/23 [History Last Taken Unknown] memantine 5 mg tablet 5 mg PO BID 11/18/23 [History Last Taken Unknown] dulaglutide 0.75 mg/0.5 mL subcutaneous pen injector (Harshulicyasmin) 0.75 mg subcut QWEEK 11/23/23 [History Last Taken Unknown] furosemide 40 mg tablet 40 mg PO BID 11/23/23 [History Last Taken Unknown] clopidogrel 75 mg tablet 75 mg PO DAILY #90 tabs 11/24/23 [Rx Last Taken Unknown] insulin aspart U-100 100 unit/mL subcutaneous solution (Novolog U-100 Insulin aspart) 16 unit subcut BREAKFAST 11/28/23 [History Last Taken Unknown] insulin aspart U-100 100 unit/mL subcutaneous solution (Novolog U-100 Insulin aspart) 18 unit subcut 1200,1700 11/28/23 [History Last Taken Unknown] metolazone 5 mg tablet 5 mg PO DAILY 11/28/23 [History Last Taken Unknown] Allergy/AdvReac Type Severity Reaction Status Date / Time lisinopril AdvReac cough Verified 07/11/23 10:07 Surgical History (Reviewed 07/11/23 @ 10:06 by Kayleigh Guillen MULTI DISCIPLINED LANGUAGE ANALYST, MULTI DISCIPLINED LANGUAGE ANALYST-C) H/O knee surgery History of back surgery History of left heart catheterization (10/20/19) Presence of coronary angioplasty implant and graft (~10/20/19) Social History household members: spouse Smoking Status: Former smoker how long ago did patient quit smokin+ years used cigars ocationally alcohol intake: current alcohol intake frequency: a few times a month Alcohol type: beer substance use type: does not use caffeine: No Physical Exam Const Constitutional Narrative: intubated, sedated HEENT normocephalic and head/scalp atraumatic Eyes PERRL Neck supple and No nodes Resp clear to auscultation bilaterally Effort and Inspection: mechanically ventilated Cardio Rate: tachycardic GI soft to palpation, non-tender and non-distended Extremity General Extremity: edema Skin no rashes or lesions noted Neuro Neuro Narrative: not following commands Lab / Micro Data Attestation: I reviewed the patient's lab results. 11/29/23 03:00 11/29/23 03:00 Labs: Laboratory Results - last 24 hr 11/28/23 16:42: POC Glucose 105 11/28/23 20:04: POC Glucose 98 11/29/23 03:00: WBC 37.7 H*, RBC 4.56 L, Hgb 14.7, Hct 46.0, MCV 100.9 H, MCH 32.2 H, MCHC 32.0, RDW Std Deviation 61.0 H, RDW Coeff of Susan 16.3 H, Plt Count 145 L, MPV 10.9, Immature Gran % (Auto) 5.700 H, Neut % (Auto) 73.3 H, Lymph % (Auto) 2.6 L, [place] % (Auto) 3.8, Eos % (Auto) 14.1 H, Baso % (Auto) 0.5, Absol snehal Neuts (auto) 27.7 H, Absolute Lymphs (auto) 0.97, Nucleated RBC % 0.2, Diff Path Review February, Sodium 140, Potassium 5.1, Chloride 110 H, Carbon Dioxide 18.0 L, Anion Gap 12, BUN 42 H, Creatinine 3.59 H, Estim Creat Clear Calc 20.99, Est GFR (MDRD) Af Amer 21 L, Est GFR (MDRD) Non-Af 17 L, BUN/Creatinine Ratio 11.7, Glucose 129 H, Calcium 7.4 L, Total Bilirubin 2.90 H, GGT 96 H, AST 446 H, ALT 194 H, Alkaline Phosphatase 53, Total Creatine Kinase 6897 H, Total Protein 5.5 L, Albumin 2.4 L, Globulin 3.1, Albumin/Globulin Ratio 0.8 L, Triglycerides 177 11/29/23 07:20: PT 22.2 H, INR 1.9, APTT 54.0 H Micro: Microbiology 11/28/23 05:12 Urine, Catheterized Urine Culture - Preliminary Alpha Hemolytic Streptococcus 11/28/23 18:35 Sputum, Induced/Lukens Respiratory Culture - Preliminary Culture exhibits no growth. 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 equalizing saw operator 11/28/23 04:10 Blood Culture (Wb) - Right Hand Blood Culture - Preliminary GNR lactose equalizing saw operator 11/28/23 04:10 Mucosa - Nasopharyngeal SARS-CoV-2, Influenza & RSV (PCR) - Final ABG Data ABG results: ABG 11/28/23 11/28/23 17:52 19:40 Specimen Type ART ART Sample Site L Radial R Radial pH 7.19 L* 7.29 L Bicarbonate Actual 16.1 L 17.2 L Total CO2 17 18 Base Excess -12 L -9 L O2 Saturation 82 L 97 O2 % 6.0 50.0 ABG pCO2 42.4 36.0 ABG pO2 58 L 106 H Jose Test Positive Positive Respiration Rate 14 O2 Delivery Device Cannula ET Tube Vent Mode Not entered AC Tidal Volume 450.0 POC PEEP 5 Crit Call To/Read Back Yes Blood Gas Notified Whom dr gudino Blood Gas Notified Time 17:54:34 Imaging Radiology Impression Echocardiogram 11/28/23 10:47 Interpretation Summary The left ventricular ejection fraction is 40 %. Normal LV size. Mild focal aortic valve calcification. Moderate pericardial effusion. There are no echocardiographic indications of cardiac tamponade. The study was technically limited. The study was technically difficult. Contrast injection was performed. Ordering Physician: Elian Gudino Referring Physician: Franklin Nguyen Performed By: Valentina West RDCS Chest X-Ray 11/28/23 13:30 IMPRESSION: Cardiomegaly. The tip of the right PICC line catheter is at the junction of the superior vena cava and right atrium. There has been improved aeration of both lung bases as compared to prior study. Electronically Signed: Kale Rodrigez MD at 14:21 EST , Chest X-Ray 11/28/23 18:30 IMPRESSION: Endotracheal tube and feeding tube placement. Stable lower lung atelectasis or infiltrates. Electronically Signed: John Oviedo MD at 19:31 EST , Renal Ultrasound 11/29/23 06:20 IMPRESSION: Normal ultrasound of the kidneys. Electronically Signed: Kale Rodrigez MD at 9:32 EST ,
[2023-11-29] MEDS: Etomidate 20 MG/10 ML Vial IV (10:03)
[2023-11-29] MEDS: DULoxetine Hcl 60 MG Capsule PO (10:33)
[2023-11-29] MEDS: Memantine Hydrochloride 5 MG Tablet PO (10:33)
[2023-11-29] MEDS: Hydrocortisone Sod Succinate 100 MG/2 ML Vial 50 MG IV ×3 (11:10→22:53)
--- NOTE | 2023-11-29 11:25 | CON.PCM.RE_ITS ---
Assessment & Plan Assessment/Plan (1) Acute kidney injury superimposed on CKD: (2) CKD (chronic kidney disease) stage 3, GFR 30-59 ml/min: (3) Bacteremia due to Gram-negative bacteria: (4) Pneumonia: PLAN: Plan This is an 78-year-old man admitted to the hospital after presenting with complaints of shortness of breath, admitted for septic shock secondary to community acquired pneumonia. Blood cultures positive for gram-negative lucy bacteria, infectious disease has been consulted for antibiotic management, currently on meropenem and Vanco. Nephrology consulted in view of SUMAN. Patient has history of CKD stage III and baseline creatinine ranging around 1.5 mg/dL. Yesterday patient's creatinine was 2.3 mg/dL and today creatinine is up to 3.59 mg/dL. Today potassium is 5.1, bicarb 18. Urine output seems to be declining. Renal ultrasound did not show any hydronephrosis or obstruction. Likely SUMAN secondary to ATN from hypotension and septic shock. Patient did have chest CTA which did not show any evidence of pulmonary embolism. Patient is significantly hypotensive and is on vasopressin and Levophed drips. Patient's is at bedside. Long discussion had with patient's today that patient is likely heading towards needing renal replacement therapy; likely CRRT. Discussed with patient's potential risks and benefits of CRRT. Questions answered. voiced understanding and is in agreement with moving forward with renal placement therapy if renal function worsens. Will continue to follow patient along with you, thank you for allowing us participate in the care of Mr. Flores, further orders forthcoming as hospitalization evolves. HPI Consult Data Date of Consult: 11/29/23 HPI Narrative HPI Narrative: LUCIA FLORES, is a 78 M with past medical history significant for hypertension, diabetes mellitus type 2, coronary artery disease, chronic kidney disease stage III, obesity, history of dementia who was brought to the emergency room yesterday with complaints of shortness of breath. Workup in the emergency room patient was noted to be tachycardic, tachypneic, mildly elevated white count, lactic elevated 7.3. Initial concern for congestive heart failure therefore patient was given one-time dose of IV Lasix with noted hypotension, patient was then started on vasopressor support and admitted to ICU for further evaluation and treatment. Unfortunately respiratory status declined and patient was intubated last evening. Neurology consulted as patient has history of CKD. Patient is followed by Dr. Daley. Baseline creatinine is ranging around 1.5 mg/dL. Patient's is at bedside, information is gathered from patient's . No recent NSAIDs. No new medications. [facility] Medical History (Updated 11/29/23 @ 11:31 by Valencia Fontaine NP-Grace) SUMAN (acute kidney injury) Atherosclerotic heart disease of [place] coronary artery without angina pectoris Cardiomyopathy Cataracts, both eyes Chest pain Congestive heart failure (CHF) CPAP (continuous positive airway pressure) dependence Dementia DM type 2 (diabetes mellitus, type 2) DVT (deep venous thrombosis) Essential hypertension Former smoker Hyperlipidemia Kidney disease NSTEMI (non-ST elevated myocardial infarction) Obesity Pericardial effusion Presence of stent in coronary artery (10/20/19) Shingles Sleep apnea Spinal stenosis Home Medications folic acid 400 mcg tablet 400 mcg PO DAILY supplement 10/19/19 [History Last Taken 09/08/21] tamsulosin 0.4 mg capsule 0.4 mg PO QHS BPH 07/02/20 [History Last Taken 09/10/21 21:00] docusate sodium 100 mg capsule (Colace) 100 mg PO BID 10/29/21 [History Last Taken Unknown] krill oil 500 mg capsule 500 mg PO DAILY 10/29/21 [History Last Taken Unknown] baclofen 10 mg tablet 10 mg PO TID PRN Muscle pain/spasm #90 tabs 11/02/21 [Rx Last Taken Unknown] cholecalciferol (vitamin D3) 50 mcg (2,000 unit) capsule 50 mcg PO DAILY 01/28/22 [History Last Taken Unknown] naloxone 0.4 mg/0.4 mL injection, auto-injector 4 mg IM PRN 05/25/22 [History Last Taken Unknown] nitroglycerin 0.4 mg sublingual tablet 0.4 mg sublingual Q5-15M PRN Chest Pain 01/05/23 [History Last Taken Unknown] albuterol sulfate 90 mcg/actuation aerosol inhaler 2 puff inhalation Q4H PRN PRN Shortness Of Breath 01/21/23 [History Last Taken Unknown] acetaminophen 500 mg tablet 1,000 mg (2 x 500 mg) PO Q8H PRN PRN Pain Score 1-3 #0 tabs 01/25/23 [Rx Last Taken Unknown] aspirin 81 mg tablet,delayed release (Adult Aspirin Regimen) 81 mg PO DAILY 03/10/23 [History Last Taken Unknown] carvedilol 3.125 mg tablet 3.125 mg PO BIDCM #180 tabs 04/07/23 [Rx Last Taken Unknown] hydrocodone-acetaminophen 5-325mg 5mg-325mg 2 tab PO DAILY PRN Pain 04/07/23 [History Last Taken Unknown] insulin glargine 100 unit/mL (3 mL) subcutaneous pen (Basaglar KwikPen U-100 Insulin) 38 unit subcut BID diabetes 04/07/23 [History Last Taken Unknown] potassium chloride 20 mEq tablet,extended release 20 meq PO BID #180 tabs 05/02/23 [Rx Last Taken Unknown] gabapentin 600 mg tablet 600 mg PO .6xday 07/11/23 [History Last Taken Unknown] atorvastatin 40 mg tablet 40 mg PO DAILY 09/08/23 [History Last Taken Unknown] duloxetine 60 mg capsule,delayed release sprinkle (Drizalma Sprinkle) 60 mg PO DAILY 09/08/23 [History Last Taken Unknown] memantine 5 mg tablet 5 mg PO BID 11/18/23 [History Last Taken Unknown] dulaglutide 0.75 mg/0.5 mL subcutaneous pen injector (Trulicity) 0.75 mg subcut QWEEK 11/23/23 [History Last Taken Unknown] furosemide 40 mg tablet 40 mg PO BID 11/23/23 [History Last Taken Unknown] clopidogrel 75 mg tablet 75 mg PO DAILY #90 tabs 11/24/23 [Rx Last Taken Unknown] insulin aspart U-100 100 unit/mL subcutaneous solution (Novolog U-100 Insulin aspart) 16 unit subcut BREAKFAST 11/28/23 [History Last Taken Unknown] insulin aspart U-100 100 unit/mL subcutaneous solution (Novolog U-100 Insulin aspart) 18 unit subcut 1200,1700 11/28/23 [History Last Taken Unknown] metolazone 5 mg tablet 5 mg PO DAILY 11/28/23 [History Last Taken Unknown] Allergy/AdvReac Type Severity Reaction Status Date / Time lisinopril AdvReac cough Verified 07/11/23 10:07 Surgical History H/O knee surgery History of back surgery History of left heart catheterization (10/20/19) Presence of coronary angioplasty implant and graft (~10/20/19) Social History (Reviewed 07/11/23 @ 10:06 by Kayleigh Guillen ELECTRICAL ELECTRONICS ENGINEER, ELECTRICAL ELECTRONICS ENGINEER-C) household members: spouse Smoking Status: Former smoker how long ago did patient quit smokin+ years used cigars ocationally alcohol intake: current alcohol intake frequency: a few times a month Alcohol type: beer substance use type: does not use caffeine: No ROS ROS Narrative Unable to obtain Physical Exam Narrative Patient is intubated, on ventilator support. No apparent distress S1, S2, RRR Lung sounds diminished Abdomen soft, rounded, positive bowel sounds Trace nonpitting edema bilateral lower legs Indwelling John with scant yellow urine in bag Lab / Micro Data 11/29/23 03:00 11/29/23 03:00 Labs: Laboratory Results - last 24 hr 11/28/23 16:42: POC Glucose 105 11/28/23 20:04: POC Glucose 98 11/29/23 03:00: WBC 37.7 H*, RBC 4.56 L, Hgb 14.7, Hct 46.0, MCV 100.9 H, MCH 32.2 H, MCHC 32.0, RDW Std Deviation 61.0 H, RDW Coeff of Susan 16.3 H, Plt Count 145 L, MPV 10.9, Immature Gran % (Auto) 5.700 H, Neut % (Auto) 73.3 H, Lymph % (Auto) 2.6 L, [place] % (Auto) 3.8, Eos % (Auto) 14.1 H, Baso % (Auto) 0.5, Absolute Neuts (auto) 27.7 H, Absolute Lymphs (auto) 0.97, Nucleated RBC % 0.2, Diff Path Review February, Sodium 140, Potassium 5.1, Chloride 110 H, Carbon Dioxide 18.0 L, Anion Gap 12, BUN 42 H, Creatinine 3.59 H, Estim Creat Clear Yosef c 20.99, Est GFR (MDRD) Af Amer 21 L, Est GFR (MDRD) Non-Af 17 L, BUN/Creatinine Ratio 11.7, Glucose 129 H, Calcium 7.4 L, Total Bilirubin 2.90 H, GGT 96 H, AST 446 H, ALT 194 H, Alkaline Phosphatase 53, Total Creatine Kinase 6897 H, Total Protein 5.5 L, Albumin 2.4 L, Globulin 3.1, Albumin/Globulin Ratio 0.8 L, Triglycerides 177 11/29/23 07:20: PT 22.2 H, INR 1.9, APTT 54.0 H Micro: Microbiology 11/28/23 05:12 Urine, Catheterized Urine Culture - Preliminary Alpha Hemolytic Streptococcus 11/28/23 18:35 Sputum, Induced/Lukens Respiratory Culture - Preliminary Culture exhibits no growth. 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 corduroy cutting supervisor 11/28/23 04:10 Blood Culture (Wb) - Right Hand Blood Culture - Preliminary GNR lactose corduroy cutting supervisor ABG Data ABG results: ABG 11/28/23 11/28/23 17:52 19:40 Specimen Type ART ART Sample Site L Radial R Radial pH 7.19 L* 7.29 L Bicarbonate Actual 16.1 L 17.2 L Total CO2 17 18 Base Excess -12 L -9 L O2 Saturation 82 L 97 O2 % 6.0 50.0 ABG pCO2 42.4 36.0 ABG pO2 58 L 106 H Jose Test Positive Positive Respiration Rate 14 O2 Delivery Device Cannula ET Tube Vent Mode Not entered AC Tidal Volume 450.0 POC PEEP 5 Crit Call To/Read Back Yes Blood Gas Notified Whom dr gudino Blood Gas Notified Time 17:54:34 Imaging Radiology Impression Echocardiogram 11/28/23 10:47 Interpretation Summary The left ventricular ejection fraction is 40 %. Normal LV size. Mild focal aortic valve calcification. Moderate pericardial effusion. There are no echocardiographic indications of cardiac tamponade. The study was technically limited. The study was technically difficult. Contrast injection was performed. Ordering Physician: Elian Gudino Referring Physician: Franklin Nguyen Performed By: Valentina West RDCS Chest X-Ray 11/28/23 13:30 IMPRESSION: Cardiomegaly. The tip of the right PICC line catheter is at the junction of the superior vena cava and right atrium. There has been improved aeration of both lung bases as compared to prior study. Electronically Signed: Kale Rodrigez MD at 14:21 EST , Chest X-Ray 11/28/23 18:30 IMPRESSION: Endotracheal tube and feeding tube placement. Stable lower lung atelectasis or infiltrates. Electronically Signed: John Oviedo MD at 19:31 EST , Renal Ultrasound 11/29/23 06:20 IMPRESSION: Normal ultrasound of the kidneys. Electronically Signed: Kale Rodrigez MD at 9:32 EST ,
[2023-11-29 11:29] LABS: Bedside Glucose 102 mg/dL (74-106)
[2023-11-29] MEDS: Norepinephrine 8 MG in 0.9% Normal Saline (250mL Bag) 242 ML 46.8999999999999986 MG CONT INF (17:15)
[2023-11-29] MEDS: Propofol 10MG/Ml 1,000 MG/100 ML Bottle 3.70000000000000018 MG CONT INF (17:27)
[2023-11-29 17:42] LABS: Bedside Glucose 144 mg/dL (74-106)
[2023-11-29] MEDS: Memantine Hydrochloride 5 MG Tablet GT (19:47)
[2023-11-29] MEDS: Atorvastatin Calcium 40 MG Tablet GT (19:47)
[2023-11-29] MEDS: 0.9% Normal Saline (250mL Bag) 250 ML 15 ML IV (19:48)
[2023-11-29] MEDS: 0.9% Saline Lock 10 ML Syringe IV (19:48)
[2023-11-29] MEDS: Norepinephrine 8 MG in 0.9% Normal Saline (250mL Bag) 242 ML 37.5 MG CONT INF (23:20)
[2023-11-29 23:39] LABS: Bedside Glucose 160 mg/dL (74-106)
[2023-11-30] VITALS (21 sets, daily range): BP systolic 72–118; BP diastolic 48–75; PULSE 86–124; RESP 12–23; TEMP 37.2–38.1; O2SAT 95–100; BMI 42.4
[2023-11-30] MEDS: Insulin Lispro 100 UNIT/ML INSULN.PEN SC ×3 (00:04→11:51)
[2023-11-30 03:30] LABS: Absolute Lymphocyte Count 0.77 X10^3/uL (0.83-4.51); Absolute Neutrophil Count 32.4 X10^3/uL (2.0-7.7); Basophil# 0.01 X10^3/uL; Eosinophil# 0.02 X10^3/uL; Eosinophils% 0.1 % (0-5); Hematocrit 41.2 % (40-54); Hemoglobin 13.2 g/dL (13.0-16.5); Lymphocyte # 0.77 X10^3/ul (0.83-4.51); Lymphocyte % 2.1 % (19-41); Mean Corpuscular Hgb 31.7 pg (27.0-32.0); Mean Platelet Vol. 11.6 fl (6.2-12.0); Monocyte# 1.55 X10^3/uL; Monocyte% 4.3 % (0-10); NRBC Flagged by Analyzer 0.1 % (0-5); Neutrophil # 32.44 X10^3/uL (2.7-7.7); POSITIVE COUNT YES; POSITIVE DIFFERENTIAL YES; POSITIVE MORPHOLOGY YES; Platelet Count 138 K/mm3 (150-450); RBC Distribution Width CV 16.3 % (11.6-14.6); RBC Distribution Width SD 59.2 fl (35.1-43.9); Red Blood Count 4.16 M/mm3 (4.6-6.2); White Blood Count 36.1 K/mm3 (4.4-11.0)
[2023-11-30 03:31] LABS: Differential Indicated SCAN CRITERIA MET
[2023-11-30 03:54] LABS: Vancomycin, Trough Level 31.8 ug/mL (5.0-15.0)
[2023-11-30 04:00] LABS: ALB/GLOB Ratio 0.7 RATIO (0.9-2.4); AST(SGOT) 324 U/L (15-37); Alanine Aminotransfer ALT/SGPT 179 U/L (16-61); Albumin, Serum 2.2 g/dL (3.2-5.0); Alkaline Phosphatase 75 U/L (45-117); Anion Gap 13 (5-15); BUN 65 mg/dL (7-18); BUN/Creat Ratio 13.5 RATIO (10-20); Calcium,Total 6.5 mg/dL (8.5-10.1); Chloride 107 mmol/L (98-107); EST Glomerular Filtration Rate 13 mL/min (>60); Est Glom Filt Rate - Afr Amer 15 mL/min (>60); Globulin 3.1 g/dL (2.2-4.2); Glucose 246 mg/dL (74-106); Potassium 6.3 mmol/L (3.5-5.1); Protein, Total 5.3 g/dL (6.4-8.2); Sodium Level 137 mmol/L (136-145)
[2023-11-30 04:03] LABS: Differential Comment SCANNED
--- NOTE | 2023-11-30 04:05 | PHA.PHARE_ITS ---
Consult Antibiotic Management Pharmacy has been consulted to manage selected antibiotic: Vancomycin Type of Intervention Type of Consult: Follow-up Suspected Infection Suspected Infection: Sepsis Labs Labs: Sodium 137 mmol/L (136-145) 11/30/23 03:10 Potassium 6.3 mmol/L (3.5-5.1) H* 11/30/23 03:10 Chloride 107 mmol/L (98-107) 11/30/23 03:10 Carbon Dioxide 17.0 mmol/L (21.0-32.0) L 11/30/23 03:10 Anion Gap 13 (5-15) 11/30/23 03:10 BUN 65 mg/dL (7-18) H 11/30/23 03:10 Creatinine 4.80 mg/dL (0.70-1.30) H 11/30/23 03:10 Est GFR (MDRD) Af Amer 15 mL/min (>60) L 11/30/23 03:10 Est GFR (MDRD) Non-Af 13 mL/min (>60) L 11/30/23 03:10 BUN/Creatinine Ratio 13.5 RATIO (10-20) 11/30/23 03:10 Glucose 246 mg/dL (74-106) H 11/30/23 03:10 Vancomycin Trough 31.8 ug/mL (5.0-15.0) H 11/30/23 03:10 Microbiology Microbiology: Microbiology 11/28/23 18:35 Sputum, Induced/Lukens Gram Stain - Final 11/28/23 18:35 Sputum, Induced/Lukens Respiratory Culture - Preliminary Culture exhibits no growth. 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 11/28/23 04:10 Blood Culture (Wb) - Right Hand Blood Culture - Preliminary GNR lactose high school french teacher 11/28/23 04:10 Mucosa - Nasopharyngeal SARS-CoV-2, Influenza & RSV (PCR) - Final Estimated Creatinine Clearance Estimated Creatinine Clearance: < 20 Goal Trough Goal Trough: 15-20 mcg/mL Pharmacy Plan for Drug Dosing Pharmacy Plan for Drug Dosing: VANCOMYCIN LEVEL RECEIVED Current Vancomycin Dose: 1500mg Q24H Number of Doses Received: 1500mg x1, 2000mg x1 Vancomycin Level: 31.8 Hours Since Last Dose: 22.5 Renal Function: sCr 4.80 (3.59 on 11/29; 2.30 on 11/28) Renal Function Trend: SUMAN Lab/Micro: pending GNR Vancomycin Plan/Comments: HOLD Vancomycin due to SUPRAtherapeutic drug level and acute kidney injury Pending Level: Random Vancomycin level @ 06:00 12/01/23 to assess clearance Pharmacy Service will continue to monitor and adjust dosing as required.
[2023-11-30] MEDS: Vancomycin Trough/Random Due 1 LAB MC (04:13)
[2023-11-30] MEDS: CHLORHEXIDINE GLUC 2% CLOTH 1 EACH TOWELETTE TOPICAL (04:13)
[2023-11-30] MEDS: Vasopressin 20 UNITS in 0.9% Normal Saline (50mL Bag) 24 ML 3 UNITS CONT INF (04:14)
[2023-11-30] MEDS: Heparin Injection (Vial) 5,000 UNIT/ML VIAL 5000 UNIT SC ×2 (05:25→11:56)
[2023-11-30] MEDS: Hydrocortisone Sod Succinate 100 MG/2 ML Vial 50 MG IV ×2 (05:25→11:52)
[2023-11-30] MEDS: Propofol 10MG/Ml 1,000 MG/100 ML Bottle 3.70000000000000018 MG CONT INF (05:30)
[2023-11-30] MEDS: Norepinephrine 8 MG in 0.9% Normal Saline (250mL Bag) 242 ML 37.5 MG CONT INF ×2 (06:00→12:32)
[2023-11-30] MEDS: fentaNYL drip 100 ML 15 MCG CONT INF (06:04)
[2023-11-30] MEDS: TITRATION PARAMETER CHANGE 1 EACH IV (06:05)
--- NOTE | 2023-11-30 06:14 | PCM.PN.INT ---
Assessment & Plan Assessment/Plan (1) Septic shock: PLAN: Plan RECOMMENDATIONS: 1. Continue vasopressor support in an attempt to maintain hemodynamic stability. 2. Continue broad-spectrum antimicrobials per ID recommendations. 3. Continue stress dose steroids as ordered. 4. Continue current sedation regimen. 5. Continue appropriate DVT and GI prophylaxis. 6. Await final decision from family regarding goals of care/decision to proceed with dialysis. IMPRESSIONS: 1. Gram-negative septic shock The patient presented with gram-negative septic shock with acute sepsis related organ dysfunction as evidenced by lactic acidemia, acute kidney injury and fluid refractory hypotension, requiring vasopressor support. There is concern for possible underlying pneumonia and/or genitourinary source of infection. The patient will be maintained on broad-spectrum antimicrobials per ID recommendations, along with vasopressor support to maintain hemodynamic stability. In addition, stress dose steroids will be continued for now. Overall, the patient's prognosis is quite poor. 2. Acute hypoxemic respiratory failure The patient was intubated on November 28 after he failed to compensate for his worsening metabolic acidosis. The patient will be continued on assist-control mode mechanical ventilation. FiO2 and PEEP will be weaned as tolerated. The patient will be continued on empiric antibiotics as well. 3. Troponin elevation/pericardial effusion/atrial fibrillation Clinical concern for demand ischemia in the setting of #1. Echocardiogram revealed a depressed ejection fraction with evidence of pericardial effusion, without tamponade. 4. Acute on chronic kidney disease Most likely prerenal in etiology in setting #1, with progression to ischemic ATN. The patient's family is contemplating whether or not to proceed with initiation of CRRT versus initiation of comfort care measures. Will await additional nephrology input following family meeting. 5. History of coronary artery disease/heart failure with preserved ejection fraction/diabetes mellitus/dementia Complicates care, management, recovery and prognosis. Continue supportive care as noted above. The patient will be continued on appropriate GI and DVT prophylaxis. TIME: 37 minutes of critical care time, independent of procedures, was spent addressing the patient's gram-negative septic shock, acute hypoxemic respiratory failure, troponin elevation/pericardial effusion, acute on chronic kidney disease, review of all data and collaboration with the care team. Subjective Subjective The patient was seen and examined at the bedside this morning. Events from the last 24 hours have been reviewed. The patient continues to have low-grade fevers and remains on vasopressor support to maintain hemodynamic stability. White blood cell count remains elevated at 36,000. Platelet count is low at 138,000. Potassium is increased at 6.3 with a bicarbonate of 17 and creatinine of 4.8. The patient is currently documented to be overall net +6.5 L for the hospitalization. I had a lengthy discussion with the patient's family this morning at the bedside regarding prognosis and overall goals of care. They are still wavering regarding their decision. They are attempting to decide between proceeding with dialysis versus terminal extubation and initiation of comfort care measures. They would like to speak with nephrology before making a final decision. Objective Data Objective Data The patient's most recent lab work, culture data and imaging studies have all been personally reviewed. Surface echocardiogram demonstrated normal LV size with an ejection fraction of 40% and mild to moderate global hypokinesis of the LV. There was a moderate pericardial effusion without any indication of cardiac tamponade. 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 Vital Signs: Vital Signs Temp Pulse Resp BP Pulse Ox O2 Del Method O2 Flow Rate 100.5 F H 124 H 16 103/68 98 Mechanical Ventilator 6 11/30/23 06:00 11/30/23 06:00 11/30/23 06:00 11/30/23 06:00 11/30/23 06:00 11/30/23 06:00 11/28/23 18:00 FiO2 30 11/30/23 06:00 Oxygen Flow Rate (L/min) 6 Oxygen Delivery Method Mechanical Ventilator Weight: 279 lb 1.683 oz Body Mass Index (BMI) 42.4 Intake & Output: Intake and Output for Last 24 Hours 11/28/23 11/29/23 11/30/23 23:59 23:59 23:59 Intake Total 4441.74 / 4510.19 2779.66 / 2853.36 450.18 / 450.18 Output Total 90 / 90 745 / 745 295 / 295 Balance 4351.74 / 4420.19 2034.66 / 2108.36 155.18 / 155.18 Lab / Micro Data Attestation: I reviewed the patient's lab results. 11/30/23 03:10 11/30/23 03:10 Labs: Laboratory Results - last 24 hr 11/29/23 03:00: GGT 96 H, Total Creatine Kinase 6897 H, Triglycerides 177 11/29/23 07:20: PT 22.2 H, INR 1.9, APTT 54.0 H 11/29/23 11:08: POC Glucose 102 11/29/23 17:24: POC Glucose 144 H 11/29/23 23:19: POC Glucose 160 H 11/30/23 03:10: WBC 36.1 H*, RBC 4.16 L, Hgb 13.2, Hct 41.2, MCV 99.0 H, MCH 31.7, MCHC 32.0, RDW Std Deviation 59.2 H, RDW Coeff of Susan 16.3 H, Plt Count 138 L, MPV 11.6, Immature Gran % (Auto) 3.500 H, Neut % (Auto) 90.0 H, Lymph % (Auto) 2.1 L, [place] % (Auto) 4.3, Eos % (Auto) 0.1, Baso % (Auto) 0.0, Absolute Neuts (auto) 32.4 H, Absolute Lymphs (auto) 0.77 L, Nucleated RBC % 0.1, Differential Comment SCANNED, Diff Path Review February, Sodium 137, Potassium 6.3 H*, Chloride 107, Carbon Dioxide 17.0 L, Anion Gap 13, BUN 65 H, Creatinine 4.80 H, Estim Creat Clear Calc 15.70, Est GFR (MDRD) Af Amer 15 L, Est GFR (MDRD) Non-Af 13 L, BUN/Creatinine Ratio 13.5, Glucose 246 H, Calcium 6.5 L*, Total Bilirubin 2.20 H, AST 324 H, ALT 179 H, Alkaline Phosphatase 75, Total Protein 5.3 L, Albumin 2.2 L, Globulin 3.1, Albumin/Globulin Ratio 0.7 L, Vancomycin Trough 31.8 H Micro: Microbiology 11/28/23 18:35 Sputum, Induced/Lukens Gram Stain - Final 11/28/23 18:35 Sputum, Induced/Lukens Respiratory Culture - Preliminary Culture exhibits no growth. 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 senior business process analyst 11/28/23 04:10 Blood Culture (Wb) - Right Hand Blood Culture - Preliminary GNR lactose senior business process analyst 11/28/23 04:10 Mucosa - Nasopharyngeal SARS-CoV-2, Influenza & RSV (PCR) - Final ABG Data ABG results: ABG 11/28/23 11/28/23 17:52 19:40 Specimen Type ART ART Sample Site L Radial R Radial pH 7.19 L* 7.29 L Bicarbonate Actual 16.1 L 17.2 L Total CO2 17 18 Base Excess -12 L -9 L O2 Saturation 82 L 97 O2 % 6.0 50.0 ABG pCO2 42.4 36.0 ABG pO2 58 L 106 H Jose Test Positive Positive Respiration Rate 14 O2 Delivery Device Cannula ET Tube Vent Mode Not entered AC Tidal Volume 450.0 POC PEEP 5 Crit Call To/Read Back Yes Blood Gas Notified Whom dr reynolds Blood Gas Notified Time 17:54:34 Radiography Diagnostic Testing: Radiology Impression Renal Ultrasound 11/29/23 06:20 IMPRESSION: Normal ultrasound of the kidneys. Electronically Signed: Kale Rodrigez MD at 9:32 EST , Abdomen CT 11/29/23 07:03 IMPRESSION: Small bilateral pleural effusions with bibasilar atelectasis and/or infiltrates. Coronary calcification. Pericardial effusion. Bilateral nonobstructive intrarenal calculi. Distended gallbladder with findings suggestive of a small gallstones versus sludge within the gallbladder lumen. John catheter is seen within the bladder. The bladder is collapsed with markedly thickened the appearance of the bladder. A neoplastic process should be ruled out. Electronically Signed: Kale Rodrigez MD at 11:11 EST , Physical Exam Const Constitutional Narrative: Intubated, sedated and mechanically ventilated. No ventilator dyssynchrony noted. General Appearance: ill appearing HEENT normocephalic and head/scalp atraumatic Mouth: endotracheal tube in place and OG tube in place Eyes EOMs intact bilaterally and no scleral icterus Neck supple General: trachea midline Chest inspection of chest normal Resp Resp Narrative: Mechanical breath sounds without appreciable wheezes, rales or rhonchi. Cardio regular rate, S1 normal heart sound and S2 normal heart sound GI normal to inspection, nondistended, normoactive bowel sounds Extremity Extremity Narrative: Dusky/cyanotic appearing distal lower extremities that are cool to the touch. Skin General Skin Exam: mottling Neuro Sensorium / Orientation: sedated on vent Charges/Coding Procedures Hospitalists Procedures: 77835 Critical Care 1st Hr
[2023-11-30] MEDS: DULoxetine Hcl 60 MG Capsule PO (07:39)
[2023-11-30] MEDS: Memantine Hydrochloride 5 MG Tablet GT (07:39)
[2023-11-30] MEDS: Meropenem 1 GM in 0.9% Normal Saline (100mL MB+) 100 ML IV (07:39)
[2023-11-30] MEDS: Pantoprazole Sodium 40 MG in 0.9% Normal Saline (100mL MB+) 100 ML 330 MG IV (07:39)
[2023-11-30] MEDS: Chlorhexidine 15 ML PO (07:39)
--- NOTE | 2023-11-30 09:07 | PCM.PN.HOSP ---
Subjective Subjective Intubated and sedated, renal function is getting worse Objective Data Objective Data Vital Signs: Vital Signs Temp Pulse Resp BP Pulse Ox O2 Del Method O2 Flow Rate 99.7 F H 97 13 92/66 99 Mechanical Ventilator 6 11/30/23 08:00 11/30/23 08:00 11/30/23 08:00 11/30/23 08:00 11/30/23 08:00 11/30/23 08:00 11/28/23 18:00 FiO2 30 11/30/23 08:00 Oxygen Flow Rate (L/min) 6 Oxygen Delivery Method Mechanical Ventilator Weight: 279 lb 1.683 oz Body Mass Index (BMI) 42.4 Intake & Output: Intake and Output for Last 24 Hours 11/29/23 11/30/23 12/01/23 03:59 03:59 03:59 Intake Total 4826.94 / 4859.93 2636.76 / 2722.96 442.93 / 442.93 Output Total 90 / 90 745 / 745 300 / 300 Balance 4736.94 / 4769.93 1891.76 / 1977.96 142.93 / 142.93 Lab / Micro Data 11/30/23 03:10 11/30/23 03:10 Labs: Laboratory Results - last 24 hr 11/29/23 11:08: POC Glucose 102 11/29/23 17:24: POC Glucose 144 H 11/29/23 23:19: POC Glucose 160 H 11/30/23 03:10: WBC 36.1 H*, RBC 4.16 L, Hgb 13.2, Hct 41.2, MCV 99.0 H, MCH 31.7, MCHC 32.0, RDW Std Deviation 59.2 H, RDW Coeff of Susan 16.3 H, Plt Count 138 L, MPV 11.6, Immature Gran % (Auto) 3.500 H, Neut % (Auto) 90.0 H, Lymph % (Auto) 2.1 L, [place] % (Auto) 4.3, Eos % (Auto) 0.1, Baso % (Auto) 0.0, Absolute Neuts (auto) 32.4 H, Absolute Lymphs (auto) 0.77 L, Nucleated RBC % 0.1, Differential Comment SCANNED, Diff Path Review February, Sodium 137, Potassium 6.3 H*, Chloride 107, Carbon Dioxide 17.0 L, Anion Gap 13, BUN 65 H, Creatinine 4.80 H, Estim Creat Clear Calc 15.70, Est GFR (MDRD) Af Amer 15 L, Est GFR (MDRD) Non-Af 13 L, BUN/Creatinine Ratio 13.5, Glucose 246 H, Calcium 6.5 L*, Total Bilirubin 2.20 H, AST 324 H, ALT 179 H, Alkaline Phosphatase 75, Total Protein 5.3 L, Albumin 2.2 L, Globulin 3.1, Albumin/Globulin Ratio 0.7 L, Vancomycin Trough 31.8 H Micro: Microbiology 11/28/23 18:35 Sputum, Induced/Lukens Gram Stain - Final 11/28/23 18:35 Sputum, Induced/Lukens Respiratory Culture - Preliminary Presumptive C albicans 11/28/23 04:10 Blood Culture (Wb) - Anticubital Right Blood Culture - Final GNR lactose dance hall host/hostess 11/28/23 04:10 Blood Culture (Wb) - Right Hand Blood Culture - Final Escherichia coli 11/28/23 05:12 Urine, Catheterized Urine Culture - Final Streptococcus mitis 11/28/23 04:10 Mucosa - Nasopharyngeal SARS-CoV-2, Influenza & RSV (PCR) - Final Radiography Diagnostic Testing: Radiology Impression Renal Ultrasound 11/29/23 06:20 IMPRESSION: Normal ultrasound of the kidneys. Electronically Signed: Kale Rodrigez MD at 9:32 EST , Abdomen CT 11/29/23 07:03 IMPRESSION: Small bilateral pleural effusions with bibasilar atelectasis and/or infiltrates. Coronary calcification. Pericardial effusion. Bilateral nonobstructive intrarenal calculi. Distended gallbladder with findings suggestive of a small gallstones versus sludge within the gallbladder lumen. John catheter is seen within the bladder. The bladder is collapsed with markedly thickened the appearance of the bladder. A neoplastic process should be ruled out. Electronically Signed: Kale Rodrigez MD at 11:11 EST , Physical Exam Const General Appearance: intubated and patient mechanically ventilated HEENT normocephalic Eyes PERRL and conjunctivae normal Neck supple and no JVD Resp normal respiratory effort, no retractions and no use of accessory muscles Auscultation: Negative for crackles, rales, rhonchi or wheezes Cardio regular rate, regular rhythm, S1 normal heart sound, S2 normal heart sound and no murmurs GI soft to palpation and non-distended; Negative for hepatosplenomegaly Extremity no clubbing, cyanosis or edema Skin no rashes or lesions noted Neuro Sensorium / Orientation: sedated on vent Psych Appearance: intubated Assessment & Plan Assessment/Plan (1) Atrial fibrillation: (2) Septic shock: (3) Pneumonia: PLAN: Plan 1. Septic shock secondary to community-acquired pneumonia leading to demand ischemia with an elevated troponin and new onset atrial fibrillation/SUMAN ? Continue with broad-spectrum antibiotics changed from Zosyn to meropenem ? Had to be intubated overnight continue with mechanical ventilation ? Continue with pressor support, vasopressin had to be added ? Appreciate latex ribbon machine operator assistance ? Culture data is pending ? Given the demand ischemia most pericardial effusion seen on CT scan secondary to an elevated D-dimer, will obtain an echocardiogram ?Appreciate nephrology's assistance, may need to start CRRT however we will have to family discussion about goals of care about goals of care ? Total creatine kinase is elevated to 6800 and his LFTs are also elevated consistent with ischemic damage will obtain a CT scan of his abdomen pelvis 2. Essential HTN/HLD/chronic combined systolic and diastolic heart failure ? Will hold his home blood pressure medication secondary to septic shock ? We will monitor make adjustments as necessary ?Echo with an EF of 40% with a moderate pericardial effusion 3. DM2 ? Hold his home medications ? Insulin ? Accu-Cheks ? We will monitor make adjustments as necessary 4. Dementia/anxiety/depression ? Appears to be at baseline on admission ? Can resume his memantine 5. BPH ? Stable ? Will hold Flomax until off of pressors DVT: Heparin Charges/Coding Visit Charges Inpatient E&M: 51621 Subs Hosp L2
--- NOTE | 2023-11-30 10:51 | PCM.PN.REN ---
Documented by User: ELLIS Bojorquez 11/30/23 11:00 Subjective Subjective Patient remains sedated on ventilator support. Family at bedside. Objective Data Objective Data Vital Signs: Vital Signs Temp Pulse Resp BP Pulse Ox O2 Del Method O2 Flow Rate 99.7 F H 97 17 92/66 99 Mechanical Ventilator 6 11/30/23 08:00 11/30/23 09:22 11/30/23 09:22 11/30/23 08:00 11/30/23 09:22 11/30/23 08:00 11/28/23 18:00 FiO2 30 11/30/23 09:22 Oxygen Flow Rate (L/min) 6 Oxygen Delivery Method Mechanical Ventilator Weight: 126.6 kg Body Mass Index (BMI) 42.4 Intake & Output: Intake and Output for Last 24 Hours 11/28/23 11/29/23 11/30/23 23:59 23:59 23:59 Intake Total 4441.74 / 4510.19 2779.66 / 2853.36 710.33 / 710.33 Output Total 90 / 90 745 / 745 300 / 300 Balance 4351.74 / 4420.19 2034.66 / 2108.36 410.33 / 410.33 Lab / Micro Data 11/30/23 03:10 11/30/23 03:10 Labs: Laboratory Results - last 24 hr 11/29/23 11:08: POC Glucose 102 11/29/23 17:24: POC Glucose 144 H 11/29/23 23:19: POC Glucose 160 H 11/30/23 03:10: WBC 36.1 H*, RBC 4.16 L, Hgb 13.2, Hct 41.2, MCV 99.0 H, MCH 31.7, MCHC 32.0, RDW Std Deviation 59.2 H, RDW Coeff of Susan 16.3 H, Plt Count 138 L, MPV 11.6, Immature Gran % (Auto) 3.500 H, Neut % (Auto) 90.0 H, Lymph % (Auto) 2.1 L, [place] % (Auto) 4.3, Eos % (Auto) 0.1, Baso % (Auto) 0.0, Absolute Neuts (auto) 32.4 H, Absolute Lymphs (auto) 0.77 L, Nucleated RBC % 0.1, Differential Comment SCANNED, Diff Path Review February foll, Sodium 137, Potassium 6.3 H*, Chloride 107, Carbon Dioxide 17.0 L, Anion Gap 13, BUN 65 H, Creatinine 4.80 H, Estim Creat Clear Calc 15.70, Est GFR (MDRD) Af Amer 15 L, Est GFR (MDRD) Non-Af 13 L, BUN/Creatinine Ratio 13.5, Glucose 246 H, Calcium 6.5 L*, Total Bilirubin 2.20 H, AST 324 H, ALT 179 H, Alkaline Phosphatase 75, Total Protein 5.3 L, Albumin 2.2 L, Globulin 3.1, Albumin/Globulin Ratio 0.7 L, Vancomycin Trough 31.8 H Micro: Microbiology 11/28/23 18:35 Sputum, Induced/Lukens Gram Stain - Final 11/28/23 18:35 Sputum, Induced/Lukens Respiratory Culture - Preliminary Presumptive C albicans 11/28/23 04:10 Blood Culture (Wb) - Anticubital Right Blood Culture - Final GNR lactose television journalist 11/28/23 04:10 Blood Culture (Wb) - Right Hand Blood Culture - Final Escherichia coli 11/28/23 05:12 Urine, Catheterized Urine Culture - Final Streptococcus mitis 11/28/23 04:10 Mucosa - Nasopharyngeal SARS-CoV-2, Influenza & RSV (PCR) - Final Radiography Diagnostic Testing: Radiology Impression Abdomen CT 11/29/23 07:03 IMPRESSION: Small bilateral pleural effusions with bibasilar atelectasis and/or infiltrates. Coronary calcification. Pericardial effusion. Bilateral nonobstructive intrarenal calculi. Distended gallbladder with findings suggestive of a small gallstones versus sludge within the gallbladder lumen. John catheter is seen within the bladder. The bladder is collapsed with markedly thickened the appearance of the bladder. A neoplastic process should be ruled out. Electronically Signed: Kale Rodrigez MD at 11:11 EST , Physical Exam Narrative Patient is intubated, on ventilator support. No apparent distress S1, S2, RRR Lung sounds diminished Abdomen soft, rounded, positive bowel sounds Trace edema bilateral lower legs Indwelling John with scant yellow urine in bag Assessment & Plan Assessment/Plan (1) Acute kidney injury superimposed on CKD: (2) CKD (chronic kidney disease) stage 3, GFR 30-59 ml/min: (3) Bacteremia due to Gram-negative bacteria: (4) Pneumonia: PLAN: Plan This is an 78-year-old man admitted to the hospital after presenting with complaints of shortness of breath, admitted for septic shock secondary to community acquired pneumonia. Blood cultures positive for gram-negative lucy bacteria, infectious disease has been consulted for antibiotic management, currently on meropenem and Vanco. Nephrology consulted in view of SUMAN. Patient has history of CKD stage III and baseline creatinine ranging around 1.5 mg/dL. -SUMAN superimposed on CKD stage III, SUMAN secondary to ATN from sepsis, hypotension. On admission creatinine 2.3 mg/dL and has worsened to 4.8 mg/dL today. Potassium is up to 6.3. Bicarb 17. Urine output still remains low, only 50 mL for today. Patient documented net +6.9L so far this admission. Renal ultrasound did not show any hydronephrosis or obstruction. Patient did have chest CTA which did not show any evidence of pulmonary embolism. Patient continues to be hypotensive and remains on vasopressin and Levophed drips. Long discussion had with patient's family today that patient is likely heading towards needing renal replacement therapy. Discussion held this morning regarding risks and benefits of renal placement therapy vs comfort care. Also long discussion regarding overall goals of care. Patient's does not want to start any type of renal replacement therapy and would like hospice/comfort care for patient. Documented by User: Dr. Roxie Daley MD 11/30/23 14:54 Objective Data Lab / Micro Data 11/30/23 03:10 11/30/23 03:10 Assessment & Plan Assessment/Plan (1) Acute kidney injury superimposed on CKD: (2) CKD (chronic kidney disease) stage 3, GFR 30-59 ml/min: (3) Bacteremia due to Gram-negative bacteria: (4) Pneumonia: PLAN: Plan This is an 78-year-old man admitted to the hospital after presenting with complaints of shortness of breath, admitted for septic shock secondary to community acquired pneumonia. Blood cultures positive for gram-negative lucy bacteria, infectious disease has been consulted for antibiotic management, currently on meropenem and Vanco. Nephrology consulted in view of SUMAN. Patient has history of CKD stage III and baseline creatinine ranging around 1.5 mg/dL. -SUMAN superimposed on CKD stage III, SUMAN secondary to ATN from sepsis, hypotension. On admission creatinine 2.3 mg/dL and has worsened to 4.8 mg/dL today. Potassium is up to 6.3. Bicarb 17. Urine output still remains low, only 50 mL for today. Patient documented net +6.9L so far this admission. Renal ultrasound did not show any hydronephrosis or obstruction. Patient did have chest CTA which did not show any evidence of pulmonary embolism. Patient continues to be hypotensive and remains on vasopressin and Levophed drips. Long discussion had with patient's family today that patient is likely heading towards needing renal replacement therapy. Discussion held this morning regarding risks and benefits of renal placement therapy vs comfort care. Also long discussion regarding overall goals of care. Patient's does not want to start any type of renal replacement therapy and would like hospice/comfort care for patient. Patient was seen and examined independently. Ongoing sepsis. Pressor requirements are somewhat better. Acidosis, hyperkalemia today. Discussed with and other family members at bedside. At baseline he has known history of dementia, poor mobility. Apparently does not like to keep any devices in. Explained that even if we start him dialysis while he is on a ventilator, he might not like it to have catheter seen after coming off ventilator. He also has acute liver injury in addition to acute kidney injury, severe septic shock. Even if he recovers this illness it is going to be a prolonged recovery. With uncertain endpoints. Suggested to the to consider palliative care approach. She would like to talk to hospice nurse.Discussed with ICU attending.
--- NOTE | 2023-11-30 10:55 | CASEMGMT ---
Addendum entered by Alejandra Griffith 11/30/23 11:19: [facility], fax did not come through, SW refaxed, it did go through this time. NATALIIA Mayfield Original Note: Social Work SW spoke w/RN, family would like to speak w/hospice. SW called [facility], faxed referral, they are to call pt's to set up an appt. SW met , daughter, son in law and grandson in room, explained that hospice will be calling to set up an appt. SW educated family on hospice briefly, answered questions. SW remains available for support to family and to follow up w/hospice if needed. NATALIIA Mayfield
[2023-11-30] MEDS: 0.9% Saline Lock 10 ML Syringe IV ×2 (11:52→14:11)
[2023-11-30 12:19] LABS: Pathologist Review Reviewed
[2023-11-30 12:35] LABS: Pathologist Review Reviewed
[2023-11-30] MEDS: fentaNYL drip 100 ML 17.5 MCG CONT INF (12:54)
[2023-11-30] MEDS: LORazepam 2 MG/ML Syringe 1 MG IV ×2 (14:11→16:07)
[2023-11-30] MEDS: Morphine 2 MG/ML Syringe IV ×2 (14:11→16:07)
[2023-11-30 16:32] LABS: Bedside Glucose 204 mg/dL (74-106)
--- NOTE | 2023-11-30 17:50 | NURSING ---
report called to ANIBAL Bazzi at [facility] at this time.
[2023-11-30 18:23] LABS: Bedside Glucose 207 mg/dL (74-106)
[2023-12-01 07:08] LABS: HEPATITIS B SURFACE AG Negative (Negative); Hep C Antibodies Non Reactive (Non Reactive); Hepatitis A IgM Antibody Negative (Negative); Hepatitis B Core AB IgM Negative (Negative)
--- NOTE | 2023-12-01 12:04 | DS.PCM_ITS ---
Providers Date of Admission: 11/28/23 Date of Discharge: 11/30/23 Primary Care Physician: Dr. Paulo Nguyen MD Consultations 11/28/23 08:18 Consult: Rim Roller Setter / Pulmonary Medicine Routine Consulting Provider: Intensivists/Pulmonary Med Reason for Consult: Septic shock EMERGENT Consult: No Notified: Yes Date Notified: 11/28/23 Time Notified: 07:36 Method of Notification: ED Physician Initiated 11/29/23 06:21 Consult: Nephrology Routine Consulting Provider: Roxie Daley Reason for Consult: SUMAN, Septic Shock EMERGENT Consult: No Notified: Yes Date Notified: 11/29/23 Time Notified: 06:21 Method of Notification: Text 11/29/23 07:02 Consult: Infectious Disease Routine Consulting Provider: William Moon Reason for Consult: Gram negative septic shock EMERGENT Consult: No Notified: Yes Date Notified: 11/29/23 Time Notified: 07:02 Method of Notification: Text Reason For Visit: SEPTIC SHOCK PNEUMONIA Diagnosis Discharge Diagnosis (1) Acute kidney injury superimposed on CKD: Status: Chronic Code(s): N17.9 - Acute kidney failure, unspecified; N18.9 - Chronic kidney disease, unspecified (2) CKD (chronic kidney disease) stage 3, GFR 30-59 ml/min: Status: Chronic Code(s): N18.30 - Chronic kidney disease, stage 3 unspecified (3) Bacteremia due to Gram-negative bacteria: Status: Acute Code(s): R78.81 - Bacteremia (4) Pneumonia: Status: Acute Code(s): J18.9 - Pneumonia, unspecified organism Medications at Discharge Home Medications folic acid 400 mcg tablet 400 mcg PO DAILY supplement 10/19/19 tamsulosin 0.4 mg capsule 0.4 mg PO QHS BPH 07/02/20 docusate sodium 100 mg capsule (Colace) 100 mg PO BID 10/29/21 krill oil 500 mg capsule 500 mg PO DAILY 10/29/21 baclofen 10 mg tablet 10 mg PO TID PRN Muscle pain/spasm #90 tabs 11/02/21 cholecalciferol (vitamin D3) 50 mcg (2,000 unit) capsule 50 mcg PO DAILY 01/28/22 naloxone 0.4 mg/0.4 mL injection, auto-injector 4 mg IM PRN 05/25/22 nitroglycerin 0.4 mg sublingual tablet 0.4 mg sublingual Q5-15M PRN Chest Pain 01/05/23 albuterol sulfate 90 mcg/actuation aerosol inhaler 2 puff inhalation Q4H PRN PRN Shortness Of Breath 01/21/23 acetaminophen 500 mg tablet 1,000 mg (2 x 500 mg) PO Q8H PRN PRN Pain Score 1-3 #0 tabs 01/25/23 aspirin 81 mg tablet,delayed release (Adult Aspirin Regimen) 81 mg PO DAILY 03/10/23 carvedilol 3.125 mg tablet 3.125 mg PO BIDCM #180 tabs 04/07/23 hydrocodone-acetaminophen 5-325mg 5mg-325mg 2 tab PO DAILY PRN Pain 04/07/23 insulin glargine 100 unit/mL (3 mL) subcutaneous pen (Basaglar KwikPen U-100 Insulin) 38 unit subcut BID diabetes 04/07/23 potassium chloride 20 mEq tablet,extended release 20 meq PO BID #180 tabs 05/02/23 gabapentin 600 mg tablet 600 mg PO .6xday 07/11/23 atorvastatin 40 mg tablet 40 mg PO DAILY 09/08/23 duloxetine 60 mg capsule,delayed release sprinkle (Drizalma Sprinkle) 60 mg PO DAILY 09/08/23 memantine 5 mg tablet 5 mg PO BID 11/18/23 dulaglutide 0.75 mg/0.5 mL subcutaneous pen injector (Trulicity) 0.75 mg subcut QWEEK 11/23/23 furosemide 40 mg tablet 40 mg PO BID 11/23/23 clopidogrel 75 mg tablet 75 mg PO DAILY #90 tabs 11/24/23 insulin aspart U-100 100 unit/mL subcutaneous solution (Novolog U-100 Insulin aspart) 16 unit subcut BREAKFAST 11/28/23 insulin aspart U-100 100 unit/mL subcutaneous solution (Novolog U-100 Insulin aspart) 18 unit subcut 1200,1700 11/28/23 metolazone 5 mg tablet 5 mg PO DAILY 11/28/23 Hospital Course Operations None Procedures 2-D Echocardiogram and Intubation Summary of Care Provided Minutes Spent on Discharge: 37 Hospital Course: Per HPI: LUCIA NEGRO, is a 78 M who presents to the hospital significant shortness of breath. He states that everything started this morning including fevers and chills. He does have some lower extremity edema with a history of heart failure so initially there was concerns that the shortness of breath was due to heart failure he did have a slightly elevated BNP and was given a dose of Lasix however this led to hypotension and then he was found to have a leukocytosis to 17 so there is concerns for sepsis given his white count, fever, tachycardia which qualifies for sepsis because of his insurance. He was then given fluids to the 30 cc/kg requirement and started on broad-spectrum antibiotics. He states that he was feeling well yesterday and the day prior and that everything started this morning when he woke up at around 2 AM. Unfortunately he is not the greatest historian due to some underlying dementia and no family is present at bedside. He was also endorsing some chest pain and so a troponin was obtained which was normal at 74 but then repeat rodolfo to 118. The gas was also elevated to 4.1 and he had to be started on pressor support. Creatinine is elevated 2.3 which based on all of his prior levels does not quite meet the requirement for SUMAN. Hospital Course: 1. Septic shock secondary to community-acquired pneumonia leading to demand ischemia with an elevated troponin and new onset atrial fibrillation/SUMAN ? Continue with broad-spectrum antibiotics changed from Zosyn to meropenem ? Had to be intubated overnight continue with mechanical ventilation ? Continue with pressor support, vasopressin had to be added ? Appreciate pipeline dispatcher assistance ? Culture data is pending ? Given the demand ischemia most pericardial effusion seen on CT scan secondary to an elevated D-dimer, will obtain an echocardiogram ?Appreciate nephrology's assistance, may need to start CRRT however we will have to family discussion about goals of care about goals of care ? Total creatine kinase is elevated to 6800 and his LFTs are also elevated consistent with ischemic damage will obtain a CT scan of his abdomen pelvis ? He did have significant worsening overnight with necessity for possible CRRT however given his age and his comorbidities the pipeline dispatcher had advance care planning discussions with the family who ultimately elected to discontinue all treatments and potentially transfer him to inpatient hospice. He was in our hospital for several hours after withdrawal of care and therefore was determined to be a candidate for transfer to inpatient hospice. He was discharged on hospice. 2. Essential HTN/HLD/chronic combined systolic and diastolic heart failure ? Will hold his home blood pressure medication secondary to septic shock ? We will monitor make adjustments as necessary ?Echo with an EF of 40% with a moderate pericardial effusion 3. DM2 ? Hold his home medications ? Insulin ? Accu-Cheks ? We will monitor make adjustments as necessary 4. Dementia/anxiety/depression ? Appears to be at baseline on admission ? Can resume his memantine 5. BPH ? Stable ? Will hold Flomax until off of pressors Physical Exam Const General Appearance: intubated and patient mechanically ventilated HEENT normocephalic Eyes PERRL and conjunctivae normal Neck supple and no JVD Resp normal respiratory effort, no retractions and no use of accessory muscles Auscultation: Negative for crackles, rales, rhonchi or wheezes Cardio regular rate, regular rhythm, S1 normal heart sound, S2 normal heart sound and no murmurs GI soft to palpation and non-distended; Negative for hepatosplenomegaly Extremity no clubbing, cyanosis or edema Skin no rashes or lesions noted Neuro Sensorium / Orientation: sedated on vent Psych Appearance: intubated Weight / BMI Weight Weight: 279 lb 1.683 oz Body Mass Index (BMI) 42.4 ABG / Lab / Microbiology Data 11/30/23 03:10 11/30/23 03:10 Laboratory: Laboratory Results - last 24 hr 11/29/23 03:00: Diff Path Review Reviewed 11/30/23 03:10: Diff Path Review Reviewed, Hepatitis A IgM Ab Negative, Hep Bs Antigen Negative, Hep B Core IgM Ab Negative, Hepatitis C Ab (EIA) Non Reactive, Hep C Ab Comment Comment 11/30/23 05:24: POC Glucose 204 H 11/30/23 11:51: POC Glucose 207 H Microbiology: Microbiology 11/28/23 18:35 Sputum, Induced/Lukens Gram Stain - Final 11/28/23 18:35 Sputum, Induced/Lukens Respiratory Culture - Final Presumptive C albicans 11/28/23 04:10 Blood Culture (Wb) - Anticubital Right Blood Culture - Final GNR lactose android ios developer 11/28/23 04:10 Blood Culture (Wb) - Right Hand Blood Culture - Final Escherichia coli 11/28/23 05:12 Urine, Catheterized Urine Culture - Final Streptococcus mitis 11/28/23 04:10 Mucosa - Nasopharyngeal SARS-CoV-2, Influenza & RSV (PCR) - Final Meaningful Use Info Meaningful Use Diagnoses (Choose all that apply): None applicable Discharge Plan Admission Admit Date/Time: 11/28/23 07:33 Attending Provider: Alexis Brunson Primary Care Provider: Paulo Nguyen Consulting Providers: Jayden Kahn; Jose De Jesus Vivas; Elian Gudino; Bao Hardin; Ariadne Gagnon; Alfa Juárez; Arin Vasquez; Tamia Serrano; Garrett Jack; Dean Mccracken; Darrick Martinez; Ricco Man; Roxie Daley; William Moon Discharge Orders/Prescriptions Prescriptions: No Action tamsulosin 0.4 mg capsule 0.4 mg PO QHS cholecalciferol (vitamin D3) 50 mcg (2,000 unit) capsule 50 mcg PO DAILY docusate sodium [Colace] 100 mg capsule 100 mg PO BID krill oil 500 mg capsule 500 mg PO DAILY hydrocodone-acetaminophen 5-325 mg tablet 2 tab PO DAILY PRN (Reason: Pain) insulin glargine [Basaglar KwikPen U-100 Insulin] 100 unit/mL (3 mL) insulin pen 38 unit subcut BID carvedilol 3.125 mg tablet 3.125 mg PO BIDCM Qty: 180 3RF gabapentin 600 mg tablet 600 mg PO .6xday folic acid 0.4 MG tablet 400 mcg PO DAILY naloxone 0.4 mg/0.4 mL Auto-Injector 4 mg IM PRN albuterol sulfate 90 mcg/actuation HFA aerosol inhaler 2 puff INHALATION Q4H PRN PRN (Reason: Shortness Of Breath) acetaminophen 500 mg Tablet 1,000 mg PO Q8H PRN PRN (Reason: Pain Score 1-3) Qty: 0 0RF Patient Comments: he takes 1 in AM and @ noon, 2 at bedtime Drizalma Sprinkle 60 mg capsule, delayed rel sprinkle 60 mg PO DAILY atorvastatin 40 mg tablet 40 mg PO DAILY memantine 5 mg tablet 5 mg PO BID Trulicity 0.75 mg/0.5 mL pen injector 0.75 mg subcut QWEEK Rx Instructions: TUESDAY furosemide 40 mg tablet 40 mg PO BID Patient Comments: taking Lasix BID 40 mg Rx Instructions: TAKE 1 TABLET EVERY DAY , TAKE ADDITIONAL 40 MG DOSE AT 5 PM FOR INCREASED LEG SWELLING OR WEIGHT GAIN 5 POUNDS/1 WEEK. insulin aspart U-100 [Novolog U-100 Insulin aspart] 100 unit/mL solution 18 unit subcut 1200,1700 Rx Instructions: WITH LUNCH AND SUPPER metolazone 5 mg tablet 5 mg PO DAILY Patient Comments: TAKE 1 TABLET BY MOUTH ONCE DAILY insulin aspart U-100 [Novolog U-100 Insulin aspart] 100 unit/mL solution 16 unit subcut BREAKFAST baclofen 10 mg tablet 10 mg PO TID PRN (Reason: Muscle pain/spasm) Qty: 90 3RF nitroglycerin 0.4 mg tablet, sublingual 0.4 mg sublingual Q5-15M PRN (Reason: Chest Pain) Rx Instructions: do not exceed 3 doses per episode aspirin [Adult Aspirin Regimen] 81 mg tablet,delayed release (DR/EC) 81 mg PO DAILY potassium chloride 20 mEq tablet extended release 20 meq PO BID Qty: 180 3RF clopidogrel 75 mg tablet 75 mg PO DAILY Qty: 90 3RF Referrals / Follow Up: Paulo Nguyen MD [Primary Care Provider] - Disposition Disposition (needs filled in before D/C Order can be placed): Hospice in Medical Facility Charges/Coding Visit Charges Inpatient E&M: 13341 Disch Hosp >30min
== END 2023-11-30 18:07 | disposition hospice, inpatient (51) | DRG 871 ==
LOC: ED 07:41 → ICU 08:01
PROVIDERS: Internal Medicine Critical Care Medicine; Internal Medicine Infectious Disease; Admitting Provider Family Medicine; Emergency Provider Emergency Medicine; PCP Family Medicine; Visit Provider Family Medicine
DX: A41.50 Gram-negative sepsis, unspecified (principal); R65.21 Severe sepsis with septic shock; N17.0 Acute kidney failure with tubular necrosis; J96.01 Acute respiratory failure with hypoxia; G93.41 Metabolic encephalopathy; J15.69 Pneumonia due to other Gram-negative bacteria; I31.39 Other pericardial effusion (noninflammatory); I13.0 Hypertensive heart and chronic kidney disease with heart failure and stage 1 through stage 4 chronic kidney disease, or unspecified chronic kidney disease; I50.42 Chronic combined systolic (congestive) and diastolic (congestive) heart failure; Z68.41 Body mass index [BMI] 40.0-44.9, adult; I42.9 Cardiomyopathy, unspecified; I24.89 Other forms of acute ischemic heart disease; F03.90 Unspecified dementia, unspecified severity, without behavioral disturbance, psychotic disturbance, mood disturbance, and anxiety; E11.22 Type 2 diabetes mellitus with diabetic chronic kidney disease; N18.30 Chronic kidney disease, stage 3 unspecified; Z79.4 Long term (current) use of insulin; I48.91 Unspecified atrial fibrillation; E11.40 Type 2 diabetes mellitus with diabetic neuropathy, unspecified; F32.A Depression, unspecified; E78.5 Hyperlipidemia, unspecified; I25.10 Atherosclerotic heart disease of native coronary artery without angina pectoris; E87.6 Hypokalemia; F41.9 Anxiety disorder, unspecified; E87.5 Hyperkalemia; G47.33 Obstructive sleep apnea (adult) (pediatric); I95.2 Hypotension due to drugs; Z11.52 Encounter for screening for COVID-19; E66.9 Obesity, unspecified; Y92.239 Unspecified place in hospital as the place of occurrence of the external cause; T50.1X5A Adverse effect of loop [high-ceiling] diuretics, initial encounter; N40.0 Benign prostatic hyperplasia without lower urinary tract symptoms; Z79.82 Long term (current) use of aspirin; Z79.02 Long term (current) use of antithrombotics/antiplatelets; Z95.5 Presence of coronary angioplasty implant and graft; Z87.891 Personal history of nicotine dependence
CPT/HCPCS: 31500; 31720; 36569; 36600; 51702; 71045; 71275; 74176; 76770; 80048; 80053; 80074; 80202; 82550; 82803; 82962; 82977; 83605; 83880; 84478; 84484; 85025; 85379; 85610; 85730; 87040; 87070; 87077; 87086; 87088; 87186; 87205; 87631; 93005; 93306; 94002; 94003; 97802; 99252; 99285; J2185; J7030; J7040; J7050; Q9957; Q9967; A4216; C8929; G0463; J1940; J3490